=== PATIENT | male | born 1955 | race Caucasian/White ===

== ENCOUNTER 2020-07-14 11:11 | Outpatient (REF) | payer OTHER, SELFPAY | END 2020-07-14 11:12 | disposition home or self-care (01) | LOC: HO.LAB 11:11 | PROVIDERS: PCP Internal Medicine; Visit Provider Internal Medicine | DX: Z20.828 Contact with and (suspected) exposure to other viral communicable diseases (principal) | CPT/HCPCS: C9803; U0003 ==

== ENCOUNTER 2020-08-02 12:21 | Outpatient (REF) | payer OTHER, SELFPAY | END 2020-08-02 12:22 | disposition home or self-care (01) | LOC: HO.LAB 12:21 | PROVIDERS: Visit Provider Internal Medicine | DX: Z20.828 Contact with and (suspected) exposure to other viral communicable diseases (principal) | CPT/HCPCS: C9803; U0003 ==

== ENCOUNTER 2021-04-24 09:32 | Outpatient (REF) | payer OTHER, SELFPAY ==
[2021-04-24 11:33] LABS: MANUAL DIFF FLAG NO
[2021-04-24 11:42] LABS: Basophils Percent Auto 0.9 % (0-2); Eosinophils Absolute Auto 0.4 X10*3/uL (0.0-0.4); Eosinophils Percent Auto 9.8 % (0-4); Hematocrit 41.1 % (42-52); Hemoglobin 13.6 g/dl (14.0-18.0); Imm Gran Abs Auto 0.01 X10*3/uL (0.00-0.03); Imm Gran Pct Auto 0.2 % (0.0-0.4); Lymphocytes Absolute Auto 1.8 X10*3/uL (1.2-4.9); Lymphocytes Percent Auto 39.7 % (20-40); Mean Corpuscular HGB Conc 33.1 g/dl (31.0-36.0); Mean Corpuscular Hemoglobin 29.4 pg (27.0-33.0); Mean Platelet Volume 9.4 fL (9.4-12.4); Monocytes Absolute Auto 0.5 X10*3/uL (0.1-1.2); Monocytes Percent Auto 10.7 % (2-11); Neutrophils Absolute Auto 1.7 X10*3/uL (2.0-8.3); Neutrophils Percent Auto 38.7 % (45-73); Platelet Count 216 X10*3/uL (160-400); Red Blood Count 4.62 X10*6/uL (4.60-5.80); Red Cell Distribution Width 12.8 % (11.0-16.0); White Blood Count 4.5 X10*3/uL (4.8-10.8)
[2021-04-24 11:53] LABS: Alanine Aminotransferase 20 U/L (0-40); Albumin Level 4.3 g/dL (3.5-5.0); Alkaline Phosphatase 71 U/L (39-117); Anion Gap 12 (12-20); Aspartate Amino Transferase 33 U/L (5-37); Bilirubin Total 0.6 mg/dL (0.0-1.0); Blood Urea Nitrogen 15 mg/dL (9-16); Calcium 9.6 mg/dL (8.4-10.2); Carbon Dioxide 27 mmol/L (22-29); Chloride 106 mmol/L (96-108); Cholesterol 145 mg/dL; Estimated Glomerular Filt Rate > 60; Glucose Fasting 102 mg/dL (60-99); HDL Cholesterol 36 mg/dL; LDL Cholesterol Calculated 94 mg/dl; Potassium 4.6 mmol/L (3.3-5.1); Sodium 140 mmol/L (135-145); Total Protein 7.2 g/dL (6.5-8.0); Triglycerides 75 mg/dL
[2021-04-24 12:13] LABS: Ferritin 77 ng/mL (20-250); Vitamin D 25-OH Total 30.4 ng/mL (>30)
[2021-04-24 12:15] LABS: Prothrombin Time 11.1 SEC (9.9-13.0)
[2021-04-24 12:29] LABS: Reflex LDLD? No
== END 2021-04-24 09:33 | disposition home or self-care (01) ==
LOC: HO.LAB 09:32
PROVIDERS: PCP Internal Medicine; Visit Provider Internal Medicine Gastroenterology
DX: K57.81 Diverticulitis of intestine, part unspecified, with perforation and abscess with bleeding (principal); E66.9 Obesity, unspecified; Z68.37 Body mass index [BMI] 37.0-37.9, adult; Z71.3 Dietary counseling and surveillance
CPT/HCPCS: 36415; 80053; 80061; 82306; 82728; 85025; 85610; 99212

== ENCOUNTER 2021-11-29 12:32 | Outpatient (REF) | payer MEDICARE, MEDICAID, SELFPAY ==
[2021-11-29 12:53] LABS: COVID-19 Test Positive (Negative); IDNOW Serial# 08D9AD1C
== END 2021-11-29 12:33 | disposition home or self-care (01) ==
LOC: HO.LAB 12:32
PROVIDERS: Visit Provider Internal Medicine
DX: Z20.822 Contact with and (suspected) exposure to COVID-19 (principal)
CPT/HCPCS: 87635; C9803

== ENCOUNTER 2025-01-06 22:54 | Inpatient (IN) | payer MEDICARE, OTHER, SELFPAY ==
--- NOTE | ~2025-01-06 | XR_ITS ---
CLINICAL HISTORY: ET tube 1 view chest Comparison: CR - XR CHEST 1V - 01/08/25 04:06 EDT Findings: Cardiac and mediastinal contours are stable. There is interstitial prominence and patchy ground-glass density, increased. Small effusions are not excluded. No pneumothorax. No acute osseous finding. The endotracheal tube is approximately 3.5 cm above the remedios. The right IJ line tip is well-positioned. Impression: Well-positioned tubes and lines. Increasing patchy airspace opacity. Correlation for pneumonia. This document has been electronically signed by: Abel Mackey MD on 01/09/2025 14:05:07
--- NOTE | ~2025-01-06 | XR_ITS ---
EXAMINATION: XR CHEST 1 VIEW HISTORY: Status post ET tube placement COMPARISON: Comparison is made with the prior examination dated 02/27/2017. FINDINGS: A single AP portable view of the chest performed at 2:17 PM is submitted. An endotracheal tube is in place with the tip approximately 4.0 cm above the remedios. There are small bilateral pleural effusions. Underlying atelectasis or pneumonia at either lung base is not excluded. There is no pneumothorax. The heart is enlarged. There is degenerative disc disease of the spine. XR/XR chest 1V IMPRESSION: 1. ET tube tip 4.0 cm above the remedios. 2. Small bilateral pleural effusions. Underlying atelectasis or pneumonia at either lung base is not excluded. Electronically signed by: Raymundo Clayton MD 01/07/2025 02:33 PM EDT
--- NOTE | ~2025-01-06 | XR_ITS ---
CLINICAL HISTORY: Distention, R O obstruction Single view of the abdomen. COMPARISON: CT abdomen and pelvis dated 01/10/25 at 12:39 EDT FINDINGS: Suture material present overlying the stomach in the left upper quadrant. Normal bowel distention. No abnormal calcifications. No pneumoperitoneum identified. Mild stool burden. No fracture identified. Mild spondylosis. IMPRESSION: 1. Nonspecific nonobstructive bowel gas pattern. This document has been electronically signed by: Carlos Dawkins MD on 01/12/2025 18:10:38
--- NOTE | ~2025-01-06 | XR_ITS ---
CLINICAL HISTORY: central line placement 1 view chest x-ray Comparison: CR/WA/SR - XR CHEST 1V - 01/07/25 14:16 EDT Findings: Small bilateral pleural effusions and bibasilar opacities are present, similar to prior exam. There is no pneumothorax. Right IJ line tip overlies the cavoatrial junction. Endotracheal tube is unchanged in position. The heart is enlarged in size. No new osseous abnormality is identified. IMPRESSION: 1. Right IJ line tip overlies the cavoatrial junction. 2. Cardiomegaly with small bilateral pleural effusions and bibasilar opacities, similar to prior exam. This document has been electronically signed by: Ivette Crane on 01/08/2025 05:07:04
--- NOTE | ~2025-01-06 | CT_ITS ---
CLINICAL HISTORY: recurrent GI bleed CT abdomen and pelvis withand without contrast Comparison: CT/KS/SR - CT GI BLEED ABD PEL WO/W IVCON - 01/07/25 02:31 EDT Findings: Trace left and small right pleural effusions. Moderate right and mild left bibasilar airspace opacity. Cardiomegaly. Gallbladder is within normal limits. Spleen is absent. Distal pancreatectomy has been performed. Abdominal solid organs are otherwise within normal limits. No bowel obstruction, pneumoperitoneum, or pneumatosis. No extravasation of contrast within the bowel lumen to indicate active hemorrhage. Prostate is enlarged. Normal appendix. Fuentes catheter. Right common femoral arterial line. No acute fracture. IMPRESSION: 1. No evidence of active gastrointestinal hemorrhage. 2. Bibasilar pneumonia with parapneumonic effusions. 3. Right common femoral arterial line is present. 4. Postsurgical sequelae. 5. Prostate enlargement. 6. Right common femoral arterial line. This document has been electronically signed by: Froy Whatley MD on 01/10/2025 14:15:50
--- NOTE | ~2025-01-06 | CT_ITS ---
CLINICAL HISTORY: large volume melena, syncope, pain CT abdomen and pelvis with and without contrast Comparison: None Findings: The lung bases are clear. There is enlargement of the pancreatic tail with adjacent fat stranding or inflammatory change. Soft tissue planes between the stomach and pancreatic tail are effaced. Multiple surgical clips are in the pancreatic tail region. Prior splenectomy noted. Small circumscribed hepatic hypodensities are statistically most likely to represent cysts. Gallbladder is unremarkable. Adrenal glands are within normal limits. The kidneys are non hydronephrotic and enhance symmetrically. Questionable gastric wall thickening noted near the fundus of the stomach adjacent to the pancreatic tail. Long segment circumferential wall thickening of the proximal transverse colon is present. Prostate gland is enlarged. Mild urinary bladder wall thickening is present. The bones are intact. IMPRESSION: 1. No active extravasation of contrast identified. 2. Extensive fat stranding or inflammatory change surrounding the tail of the pancreas with effacement of fat planes between adjacent stomach. Possible gastric wall thickening. Surgical clips are noted in the distal pancreas and there has been prior splenectomy. Differential considerations include inflammatory changes such as pancreatitis with involvement of adjacent gastric fundus, neoplasm or postsurgical change. Please correlate clinically. 3. Long segment circumferential wall thickening of the proximal transverse colon, possible neoplasm or inflammatory change. 4. Enlarged prostate gland with mild urinary bladder wall thickening, possible cystitis. This document has been electronically signed by: Larry Malcolm MD, PHD on 01/07/2025 05:19:46
--- NOTE | ~2025-01-06 | IR_ITS ---
History: Patient with life-threatening acute upper GI bleed. Presents for embolization. Procedures performed: 1. Ultrasound-guided catheterization of the right common femoral artery. 2. Catheterization of the celiac artery with selective arteriography. 3. Catheterization of the left gastric artery with selective arteriography and embolization. 4. Catheterization of the gastroduodenal artery with selective arteriography. 5. Catheterization of the right epiploic artery with selective arteriography and embolization. 6. Catheterization of the superior mesenteric artery with selective arteriography. Physician: Wai Martins MD FSIR Anesthesia: Sedation provided by ICU staff; 9 cc of 1% lidocaine utilized for local anesthesia at the right groin Specimen: None Drain: None Estimated blood loss: Minimal Complications: None Procedure in detail: Informed and written consent was obtained at from the family and placed in the chart. The patient was positioned supine on the angiography table sterile preparation of both groins. Ultrasound of the right groin showed a patent right common femoral artery. Under ultrasound, 1% lidocaine was injected subcutaneously and extended to the artery. A small incision was made in the skin with a #11 blade. Through the incision and under ultrasound guidance with permanent recordings and direct visualization of needle entry into the artery, the right common femoral artery was catheterized in a retrograde fashion. A 5 Mauritian sheath was placed. A Sos 2 catheter was used to catheterize the celiac artery with selective arteriography performed demonstrating vasoconstriction of the arteries from acute blood loss. There appeared to be hemorrhage emanating from the left gastric artery. This artery was catheterized with Sos 2 catheter and Glidewire and we exchanged for a 4 Mauritian hockey-stick catheter, which we used to catheterize the artery more distally. Selective arteriography showed that we had advanced the catheter as distally as possible. Coaxially, we inserted a Progreat microcatheter and embolized the artery with a Gelfoam slurry and small 3 and 4 mm coils with follow-up imaging showing stasis of blood flow. Next, we catheterized the gastroduodenal artery. This showed that no active hemorrhage from the gastroduodenal artery itself. We did, however, note that the right gastroepiploic artery distally ascended towards the area in the stomach where there is a clip that is consistent with the suspected area of hemorrhage. We catheterized distally with the Progreat microcatheter and similarly embolized the artery with 3 and 4 mm coils with follow-up imaging showing stasis of blood flow distal to our embolization site. No further hemorrhage within the celiac territory was appreciated. We exchanged for the Sos 2 catheter and used it to catheterize the superior mesenteric artery with selective arteriography showing no evidence of hemorrhage emanating from any of the branches of the superior mesenteric artery in the upper abdomen. The patient demonstrated improvement in his hemodynamics and we elected to terminate the case. The sheath was left in as an arterial line and secured to the patient with a single suture. It was connected to the pressure monitoring manifold. The patient tolerated the procedure well. Summary: Hemorrhage in the stomach treated with embolization of the left gastric artery and distally the right gastroepiploic artery. Electronically signed by: Saad Martins MD 01/11/2025 01:47 PM EDT
[2025-01-06 23:00] VITALS: BP 106/57; PULSE 106; RESP 16; TEMP 36.6; O2SAT 99
--- NOTE | 2025-01-06 23:02 | ECG_ITS ---
Test Reason : FALL Blood Pressure : */* mmHG Vent. Rate : 99 BPM Atrial Rate : 99 BPM P-R Int : 148 ms QRS Dur : 94 ms QT Int : 336 ms P-R-T Axes : 69 -1 52 degrees QTcB Int : 431 ms Normal sinus rhythm Nonspecific T wave abnormality Abnormal ECG When compared with ECG of 18-Apr-2015 09:06, Vent. rate has increased by 33 bpm Nonspecific T wave abnormality now evident in Lateral leads Referred By: Generic ED Physician Electronically Signed By: BÁRBARA LINDQUIST MD
[2025-01-06 23:05] VITALS: BP 106/57; PULSE 106; TEMP 36.6; O2SAT 99; BMI 34.6
[2025-01-06 23:40] LABS: MANUAL DIFF FLAG NO
[2025-01-06 23:43] LABS: Basophils Absolute Auto 0.1 X10*3/uL (0.0-0.2); Basophils Percent Auto 0.6 % (0-2); Eosinophils Absolute Auto 0.3 X10*3/uL (0.0-0.4); Eosinophils Percent Auto 3.2 % (0-4); Hematocrit 23.5 % (42.0-52.0); Hemoglobin 8.1 g/dl (14.0-18.0); Imm Gran Abs Auto 0.04 X10*3/uL (0.00-0.03); Imm Gran Pct Auto 0.4 % (0.0-0.4); Lymphocytes Absolute Auto 4.1 X10*3/uL (1.2-4.9); Lymphocytes Percent Auto 38.1 % (20-40); Mean Corpuscular HGB Conc 34.5 g/dl (31.0-36.0); Mean Corpuscular Hemoglobin 30.9 pg (27.0-33.0); Mean Corpuscular Volume 89.7 fL (80.0-98.0); Mean Platelet Volume 8.8 fL (9.4-12.4); Monocytes Percent Auto 9.4 % (2-11); NRBC Pct Auto 0.2 /100WBC (0.0-0.2); Neutrophils Absolute Auto 5.2 x10*3/uL (2.0-8.3); Neutrophils Percent Auto 48.3 % (45-73); Platelet Count 208 X10*3/uL (160-400); Red Blood Count 2.62 X10*6/uL (4.60-5.80); Red Cell Distribution Width 14.6 % (11.0-16.0); White Blood Count 10.7 X10*3/uL (4.8-10.8)
[2025-01-07] VITALS (38 sets, daily range): BP systolic 76–147; BP diastolic 36–78; PULSE 78–113; RESP 16–25; TEMP 30–38; O2SAT 96–100
[2025-01-07 00:04] LABS: Alanine Aminotransferase 7 U/L (0-40); Albumin Level 3.1 g/dL (3.5-5.0); Alkaline Phosphatase 47 U/L (39-117); Anion Gap 11 (12-20); Aspartate Amino Transferase 29 U/L (5-37); Bilirubin Total 0.3 mg/dL (0.0-1.0); Blood Urea Nitrogen 63 mg/dL (9-16); Calcium 8.2 mg/dL (8.4-10.2); Carbon Dioxide 20 mmol/L (22-29); Chloride 115 mmol/L (96-108); Creatinine Clr Calc Pharmacy 97.3; Estimated Glomerular Filt Rate > 60; Glucose Random 130 mg/dL (60-115); Lipase 29 U/L (8-78); Potassium 3.9 mmol/L (3.3-5.1); Sodium 142 mmol/L (135-145); Total Protein 5.3 g/dL (6.5-8.0)
--- NOTE | 2025-01-07 01:41 | ED.GENADULT ---
HPI - General Adult General Chief complaint: Abdominal Pain Stated complaint: Abd pain, dizzy,fall. 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 Patient states he developed diffuse mid to lower abdominal discomfort, unable to describe the nature of his symptoms. When the pain presents it is severe, he states he felt as if he had a ?ball? in his abdomen. Associated nausea, diarrhea, dizziness, and near syncopal symptoms. Patient states he felt weak and collapsed to the floor. There was no head strike no loss of consciousness. Patient has had transient symptoms and multiple episodes of weakness and dizziness in the setting of active abdominal discomfort. Denies abdominal distention, inability to pass flatus or fever. Denies dysuria, hematuria or history of kidney stones. Patient denies recent travel, recent hospitalization or use of antibiotics. Related Data Home Medications ?Medication ?Instructions ?Recorded ?Confirmed aspirin 81 mg tablet,delayed 81 mg PO DAILY 04/24/21 release Allergies Allergy/AdvReac Type Severity Reaction Status Date / Time No Known Allergies Allergy Verified 01/06/25 23:09 Review of Systems Review of Systems: Yes all other systems are reviewed and are negative Constitutional: Constitutional: Denies fatigue, Denies fever(s) and Denies headache(s) ENT: Reports dizziness and Denies headache(s) Cardiovascular: Cardiovascular: Denies chest pain and Denies dyspnea Respiratory: Respiratory: Denies cough and Denies dyspnea Gastrointestinal: Gastrointestinal: Reports abdominal pain, Denies bloating, Denies constipation, Reports diarrhea, Reports nausea and Denies vomiting Genitourinary: Genitourinary: Denies hematuria, Denies dysuria and Denies flank pain Neurologic: Reports dizziness and Denies headache(s) Endocrine: Endocrine: Denies fatigue PMF Past Medical History Attestation statement: The following information was validated with the patient. Medical History (Updated 01/07/25 @ 02:50 by GIA Cohen) Erectile dysfunction Chronic hepatitis C virus genotype 1a infection Social History Social History Advance Directives: No Advance Directives Information Provided: Yes Do you have a plan to hurt others: No Plan Physical Exam ED Vital Signs: Vital Signs - 24 hr 01/06/25 23:00 01/06/25 23:05 01/07/25 02:06 Temperature 97.9 F 97.9 F Pulse Rate 106 H 106 H 84 Respiratory Rate 16 16 Blood Pressure 106/57 L 106/57 L 84/42 L Pulse Oximetry 99 99 Oxygen Delivery Method Room Air Room Air 01/07/25 03:38 01/07/25 03:54 Temperature 97.7 F 98.2 F Pulse Rate 93 89 Respiratory Rate 17 20 Blood Pressure 127/65 128/62 Pulse Oximetry Oxygen Delivery Method BMI result Body Mass Index 34.6 Const Other: Alert overall well-appearing Orientation/consciousness: patient oriented x3 Resp Effort & Inspection: normal respiratory effort Cardio Other: Normal peripheral perfusion GI Other: Abdomen is soft, obese, nondistended, nontender to palpation no palpable masses central abdomen, no guarding Skin Other: Warm dry no rash Neuro General: patient oriented x3, gait normal, no focal motor deficits and CN's II-XI intact bilaterally Psych Other: Cooperative Course Reevaluation(s) Reevaluation #1: Patient just passed out while having a bowel movement, it is large volume melena. Obtaining a repeat H&H, coagulation studies, type and screen in ordering 2 units of blood. The patient has been consented for blood transfusion, his daughter signed for him. The patient was just about to have the CT scan of the abdomen, I am changing it to GI bleed protocol.... Ordering ceftriaxone and Protonix The daughter is at bedside, her father has not been forthcoming about his symptoms. Apparently he has been having dark stools for unclear duration of time, his symptoms acutely worsened over the past 2 days. He started having syncopal episodes at home yesterday. Again, the patient is not on a blood thinner. Time: 02:07 Reevaluation #2: per Dr. Rodrigues keep the patient NPO, he will have endoscopy later today, he is in agreement with interventions we have provided thus far including blood products ceftriaxone and Protonix Time: 03:07 Medications Administered Generic Name Dose Route Start Last Admin Trade Name Freq PRN Reason Stop Dose Admin Albumin Human 100 mls @ 100 mls/hr 01/07/25 02:45 01/07/25 02:52 Kedbumin 25 % IV 01/07/25 09:44 100 mls/hr Q6H ZHANG Administration Discontinued Medications Generic Name Dose Route Start Last Admin Trade Name Ashanti PRN Reason Stop Dose Admin Ceftriaxone Sodium 2 gm 01/07/25 02:55 01/07/25 03:18 Ceftriaxone Sodium 2 Gm Vial IVPUSH 01/07/25 02:56 2 gm ONCE ONE Administration Diatrizoate Meglum/Diatrizoate Sod 30 ml 01/07/25 02:54 01/07/25 03:01 Diatrizoate Meglumine, Sodium 30 Ml Solution PO 01/07/25 02:55 30 ml ONCE ONE Administration Sodium Chloride 1,000 mls @ 999 mls/hr 01/07/25 00:15 01/07/25 01:47 Ns IV 01/07/25 01:15 999 mls/hr .Q1H1M ZHANG Administration Iohexol 70 ml 01/07/25 03:02 01/07/25 03:02 Iohexol 350 Mg/Ml 100 Ml Infus..Btl IV 01/07/25 03:03 70 ml ONCE ONE Administration Pantoprazole Sodium 80 mg 01/07/25 02:55 01/07/25 03:18 Pantoprazole Sodium 40 Mg/10 Ml Vial IVPUSH 01/07/25 02:56 80 mg ONCE ONE Administration Procedures Procedure Narrative Procedure Narrative: Ultrasound-guided IVs 18 gauge 1-3/4 inch IVs placed in bilateral upper extremities, both with the adequate blood return, both flushes well both secured with Tegaderm Medical Decision Making Medical Decision Making MDM Narrative: 69-year-old male with a history of morbid obesity, Betancourt, hepatitis-C , 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 Patient states he developed diffuse mid to lower abdominal discomfort, unable to describe the nature of his symptoms. When the pain presents it is severe, he states he felt as if he had a ?ball? in his abdomen. Associated nausea, diarrhea, dizziness, and near syncopal symptoms. Patient states he felt weak and collapsed to the floor. There was no head strike no loss of consciousness. Patient has had transient symptoms and multiple episodes of weakness and dizziness in the setting of active abdominal discomfort. Denies abdominal distention, inability to pass flatus or fever. Denies dysuria, hematuria or history of kidney stones. Patient denies recent travel, recent hospitalization or use of antibiotics. Problem: Age, Betancourt, obesity, prior hep C, splenectomy History: Per patient and daughter I have considered the following differential diagnoses: Metastatic disease, bowel obstruction, diverticulitis, C diff, viral gastroenteritis, traveler's diarrhea Plan: Patient is not the best historian, he is describing obstructive symptoms at times, but it is not a concise picture of SBO. We will obtain a CT scan with p.o. contrast. He has no symptoms at this time we will just give IV fluid for hydration. Given prior neuroendocrine tumor, perhaps his disease process has spread. Screening labs are in process. Given concurrent diarrhea, considering potential diverticulitis, however he has no focal left lower quadrant pain. He also has no risk factors for C diff or traveler's diarrhea. I have independently reviewed the following tests: Labs: 1st H&H 8.1 and 23.5, the 2nd 7.9 and 23.4, no leukocytosis, OBS FX positive, no electrolyte abnormality, albumin low at 3.1 CT abdomen and pelvis GI bleed protocol EKG: Normal sinus rhythm, rate of 99, nonspecific T-wave abnormalities lateral leads, QTC 431 Lab Data 01/07/25 02:07 01/06/25 23:31 Labs: Lab Results 01/06/25 01/07/25 01/07/25 Range/Units 23:31 01:57 02:07 WBC 10.7 (4.8-10.8) X10*3/uL RBC 2.62 L (4.60-5.80) X10*6/uL Hgb 8.1 L 7.9 L (14.0-18.0) g/dl Hct 23.5 L 23.4 L (42.0-52.0) % MCV 89.7 (80.0-98.0) fL MCH 30.9 (27.0-33.0) pg MCHC 34.5 (31.0-36.0) g/dl RDW 14.6 (11.0-16.0) % Plt Count 208 (160-400) X10*3/uL MPV 8.8 L (9.4-12.4) fL Immature Gran % (Auto) 0.4 (0.0-0.4) % Neut % (Auto) 48.3 (45-73) % Lymph % (Auto) 38.1 (20-40) % [facility] % (Auto) 9.4 (2-11) % Eos % (Auto) 3.2 (0-4) % Baso % (Auto) 0.6 (0-2) % Lymph # (Auto) 4.1 (1.2-4.9) X10*3/uL [facility] # (Auto) 1.0 (0.1-1.2) X10*3/uL Eos # (Auto) 0.3 (0.0-0.4) X10*3/uL Baso # (Auto) 0.1 (0.0-0.2) X10*3/uL Abs Immat Gran (auto) 0.04 H (0.00-0.03) X10*3/uL Absolute Neuts (auto) 5.2 (2.0-8.3) x10*3/uL Absolute Nucleated RBC 0.020 H (0.0-0.012) X10*3/uL Nucleated RBC % (auto) 0.2 (0.0-0.2) /100WBC PT 12.2 (10.9-12.4) SEC INR 1.1 (0.9-1.1) Sodium 142 (135-145) mmol/L Potassium 3.9 (3.3-5.1) mmol/L Chloride 115 H (96-108) mmol/L Carbon Dioxide 20 L (22-29) mmol/L Anion Gap 11 L (12-20) BUN 63 H (9-16) mg/dL Creatinine 0.94 (0.5-1.4) mg/dL Estim Creat Clear Calc 97.3 Estimated GFR > 60 POC Glucose 138 H (60-115) mg/dL Random Glucose 130 H (60-115) mg/dL Lactic Acid (0.5-2.0) mmol/L Calcium 8.2 L D (8.4-10.2) mg/dL Total Bilirubin 0.3 (0.0-1.0) mg/dL AST 29 (5-37) U/L ALT 7 (0-40) U/L Alkaline Phosphatase 47 (39-117) U/L Troponin I High Sens 3.1 (<3.5-35.0) ng/L Total Protein 5.3 L (6.5-8.0) g/dL Albumin 3.1 L (3.5-5.0) g/dL Lipase 29 (8-78) U/L Stool Occult Blood (NEGATIVE) Blood Type O Positive Antibody Screen NEGATIVE Crossmatch See Detail 01/07/25 01/07/25 Range/Units 02:13 03:06 WBC (4.8-10.8) X10*3/uL RBC (4.60-5.80) X10*6/uL Hgb (14.0-18.0) g/dl Hct (42.0-52.0) % MCV (80.0-98.0) fL MCH (27.0-33.0) pg MCHC (31.0-36.0) g/dl RDW (11.0-16.0) % Plt Count (160-400) X10*3/uL MPV (9.4-12.4) fL Immature Gran % (Auto) (0.0-0.4) % Neut % (Auto) (45-73) % Lymph % (Auto) (20-40) % [facility] % (Auto) (2-11) % Eos % (Auto) (0-4) % Baso % (Auto) (0-2) % Lymph # (Auto) (1.2-4.9) X10*3/uL [facility] [place] # (Auto) (0.1-1.2) X10*3/uL Eos # (Auto) (0.0-0.4) X10*3/uL Baso # (Auto) (0.0-0.2) X10*3/uL Abs Immat Gran (auto) (0.00-0.03) X10*3/uL Absolute Neuts (auto) (2.0-8.3) x10*3/uL Absolute Nucleated RBC (0.0-0.012) X10*3/uL Nucleated RBC % (auto) (0.0-0.2) /100WBC PT (10.9-12.4) SEC INR (0.9-1.1) Sodium (135-145) mmol/L Potassium (3.3-5.1) mmol/L Chloride (96-108) mmol/L Carbon Dioxide (22-29) mmol/L Anion Gap (12-20) BUN (9-16) mg/dL Creatinine (0.5-1.4) mg/dL Estim Creat Clear Calc Estimated GFR POC Glucose (60-115) mg/dL Random Glucose (60-115) mg/dL Lactic Acid 1.8 (0.5-2.0) mmol/L Calcium (8.4-10.2) mg/dL Total Bilirubin (0.0-1.0) mg/dL AST (5-37) U/L ALT (0-40) U/L Alkaline Phosphatase (39-117) U/L Troponin I High Sens (<3.5-35.0) ng/L Total Protein (6.5-8.0) g/dL Albumin (3.5-5.0) g/dL Lipase (8-78) U/L Stool Occult Blood POSITIVE (NEGATIVE) Blood Type Antibody Screen Crossmatch Critical Care Time Critical Care Time Critical Care Time: Yes Total Critical Care Time: 30 Attestation: I Alicja Fuentes PA-C have performed 30 minutes of critical care time not including lines and procedures Discharge Plan Discharge Clinical Impression: Acute upper GI bleed, Anemia Patient Disposition: Admitted As Inpatient Print Language: Monegasque
[2025-01-07] MEDS: 0.9 % Sodium Chloride 1,000 ML 999 ML IV (01:47)
[2025-01-07 02:14] LABS: Hematocrit 23.4 % (42.0-52.0); Hemoglobin 7.9 g/dl (14.0-18.0)
[2025-01-07 02:18] LABS: OBS Int Ctl Valid YES; OBS1 POSITIVE (NEGATIVE)
[2025-01-07 02:19] LABS: INTERNATIONAL NORM RATIO 1.1 (0.9-1.1); Prothrombin Time 12.2 SEC (10.9-12.4)
[2025-01-07 02:24] LABS: Glucose, Whole Blood 138 mg/dL (60-115)
[2025-01-07 02:29] LABS: Troponin-I High Sensitivity 3.1 ng/L (<3.5-35.0)
[2025-01-07] MEDS: Albumin Human 25 % 100 ML IV ×2 (02:52→08:56)
[2025-01-07] MEDS: Diatrizoate Meglumine, Sodium 30 ML SOLUTION PO (03:01)
[2025-01-07] MEDS: iohexoL 350 MG/ML 100 ML INFUS..BTL 70 ML IV (03:02)
[2025-01-07] MEDS: Pantoprazole Sodium 40 MG/10 ML VIAL 80 MG IVPUSH (03:18)
[2025-01-07] MEDS: cefTRIAXone sodium 2 GM VIAL IVPUSH (03:18)
[2025-01-07 03:31] LABS: Lactic Acid 1.8 mmol/L (0.5-2.0)
--- NOTE | 2025-01-07 03:46 | PC.NURSE ---
late entry: daughter at bedside requesting assistance. pt on bedside commode diaphoretic and non responsive.provder called to bedside. PT moved to stretcher, and black diarrhea noted in commode BP soft. New labs and orders placed and administered. second ultrasound guided line placed in right arm. PT taken to ct for imaging. awaiting blood to be ready.
--- NOTE | 2025-01-07 05:41 | P.HPHOSP_ITS ---
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 Patient states he has been having painless black stools that started 2 weeks prior to presentation. He has been having multiple episodes of black stools every day. This was without any abdominal discomfort until on the day of presentation when he had sudden onset of pain which is in the center of the abdomen, intermittent, nonradiating and without any relieving factors. Patient states he ate something at 18:00 and he thought the abdominal pain is due to it as it started at 21:00. Patient tried to get up to go to the bathroom and he felt dizzy/lightheaded and nearly passed out. He did not lose consciousness. Did not hit his head. Patient has had easy fatigability and weakness over the last few days. No fever, chills, chest pain, palpitations, shortness of breath, changes in urinary habits. Patient passed out in the ER while having a bowel movement as per ER provider. Black tarry stools noted in the ER. In the emergency department, hemoglobin found to be 7.9 and stool occult blood positive. 2 unit PRBC ordered in the ER. Review of Systems 2 Constitutional: Constitutional: Reports fatigue, Reports malaise and Reports weakness Cardiovascular: Cardiovascular: Reports no additional cardiovascular complaints Respiratory: Respiratory: Reports no additional respiratory complaints Gastrointestinal: Gastrointestinal: Reports abdominal pain and Reports melena Genitourinary: Genitourinary: Reports no additional male genitourinary complaints Neurologic: Reports weakness Endocrine: Endocrine: Reports fatigue [facility] Medical History Erectile dysfunction Chronic hepatitis C virus genotype 1a infection Pertinent family history: No family history of early CAD Social History Advance Directives: No Advance Directives Information Provided: Yes Do you have a plan to hurt others: No Plan Meds Allergies Allergy/AdvReac Type Severity Reaction Status Date / Time No Known Allergies Allergy Verified 01/06/25 23:09 Active Medications: Current Medications Albumin Human (Kedbumin 25 %) 100 mls @ 100 mls/hr IV Q6H ZHANG Stop: 01/07/25 09:44 Last Admin: 01/07/25 02:52 Dose: 100 mls/hr Home Medications ?Medication ?Instructions ?Recorded ?Confirmed ?Last Taken ?Type aspirin 81 mg tablet,delayed 81 mg PO DAILY 04/24/21 Unknown History release Physical Exam 2 Vital Signs and Narrative: Vital Signs: Last Vital Signs Temp 98.2 F 01/07/25 05:38 Pulse 97 01/07/25 05:38 Resp 21 H 01/07/25 05:38 BP 140/71 H 01/07/25 05:38 Pulse Ox 98 01/07/25 05:38 O2 Del Method Room Air 01/07/25 05:38 BMI result Body Mass Index 34.6 Middle-aged male lying in bed in no distress Neck supple, no JVD Regular rate and rhythm, S1-S2 heard Regular breath sounds bilaterally, no wheezing or crackles appreciated Abdomen soft nontender, no guarding, no rigidity Patient is awake, alert and oriented to self, place, time and person ; no focal motor deficit Psych: Normal mood No pedal edema Results Labs 01/07/25 02:07 01/06/25 23:31 Labs: Laboratory Results - last 24 hr 01/06/25 01/07/25 01/07/25 23:31 01:57 02:07 MCV 89.7 MCH 30.9 MCHC 34.5 RDW 14.6 Plt Count 208 MPV 8.8 L Immature Gran % (Auto) 0.4 Neut % (Auto) 48.3 Lymph % (Auto) 38.1 [place] % (Auto) 9.4 Eos % (Auto) 3.2 Baso % (Auto) 0.6 Lymph # (Auto) 4.1 [place] # (Auto) 1.0 Eos # (Auto) 0.3 Baso # (Auto) 0.1 Abs Immat Gran (auto) 0.04 H Absolute Neuts (auto) 5.2 Absolute Nucleated RBC 0.020 H Nucleated RBC % (auto) 0.2 PT 12.2 INR 1.1 Anion Gap 11 L Estim Creat Clear Calc 97.3 Estimated GFR > 60 POC Glucose 138 H Random Glucose 130 H Lactic Acid Calcium 8.2 L D Total Bilirubin 0.3 AST 29 ALT 7 Alkaline Phosphatase 47 Total Protein 5.3 L Albumin 3.1 L Lipase 29 Stool Occult Blood Blood Type O Positive Antibody Screen NEGATIVE Crossmatch See Detail 01/07/25 01/07/25 02:13 03:06 MCV MCH MCHC RDW Plt Count MPV Immature Gran % (Auto) Neut % (Auto) Lymph % (Auto) [place] % (Auto) Eos % (Auto) Baso % (Auto) Lymph # (Auto) [place] # (Auto) Eos # (Auto) Baso # (Auto) Abs Immat Gran (auto) Absolute Neuts (auto) Absolute Nucleated RBC Nucleated RBC % (auto) PT INR Anion Gap Estim Creat Clear Calc Estimated GFR POC Glucose Random Glucose Lactic Acid 1.8 Calcium Total Bilirubin AST ALT Alkaline Phosphatase Total Protein Albumin Lipase Stool Occult Blood POSITIVE Blood Type Antibody Screen Crossmatch Assessment and Plan (1) Acute GI bleeding: Status: Acute (2) Acute blood loss anemia: Status: Acute (3) Syncope: Status: Acute Plan This is a 69-year-old male with pertinent history of 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 #. Acute symptomatic blood loss anemia due to Acute GI bleed: Will admit patient with cardiac monitoring. Initiated IV Protonix. Patient being transfused 2 unit PRBC in the ER. Closely monitor H&H and hemodynamics. Consulted Gastroenterology, appreciate assistance. Will keep patient NPO #. Syncope: Initially had an episode of orthostatic presyncope at home. In the ER, patient had neurally mediated syncope in the setting of defecation. Resuscitated with IV crystalloids. Closely monitor. #. Imaging evidence of wall thickening of transverse colon, possible neoplasm or inflammatory change: Appreciate GI consult #. Hypertension: Hold lisinopril in the setting of GI bleed #. ALEXANDRA: Continue CPAP at bedtime #. Obesity class I: Counseled regarding diet and exercise #. BPH: On Flomax Med rec pending DVT prophylaxis: Mechanical Full code Admit as inpatient and will require two night minimum hospital stay for PRBC transfusion, close hemodynamic monitoring (as above), which is not possible in a lesser acute setting. Gastroenterology consult pending Quality Stroke Does the patient have a stroke diagnosis?: No VTE Prior VTE?: No VTE Risk Level:: Medical - moderate - high VTE Device Contraindication: N/A - Device Ordered VTE Drug Contraindication: Treatment Not Indicated
[2025-01-07] MEDS: Pantoprazole Sodium 40 MG/10 ML VIAL IVPUSH ×2 (06:30→17:55)
[2025-01-07] MEDS: 0.9 % Sodium Chloride Flush 3 ML SYRINGE IVFLUSH ×2 (09:02→23:37)
--- NOTE | 2025-01-07 10:45 | PM.GICN ---
History of Present Illness Data of Consult Service Date: 01/07/25 Requesting physician: Blas Hughes Primary Care Provider: Unknown Physician HPI Reason for consult: ugib 69 y.o M with PMH of obesity, fatty liver, prev GI bleeding who presented to the hospital for abd pain, nausea and lightheadedness and found to have acute anemia. Pt seen in the ER in the presence of his daughter, reports sx started saturday evening when he developed gnawing epigastric pain assoc with nausea and frequent black soft BMs. This progressed over the next day and by the evening he was short of breath, fatigued and lightheaded and even fell in his bathroom. This prompted ER visit he was noted to be tachycardiac with soft pressures. Initial H/H was 8.1/23.5 down from his previously known baseline. Bun:Cr elevated. Had witnessed melena in ER wiht a presyncopal event. So far has received IVFs, 1u PRBC, protonix IV. CT bleed protocol reviewed - favor gastritis/gastric ulcer leading to perigastric changes josh with normal lipase. Pt reports a similar hx last year when he was managed at [facility]. Reports source of bleeding could not be found at that time despite an egd and colonoscopy. Does not smoke, take NSAIDs or drink etOH. No blood thinners on board. Normal platelets and coags. Review of Systems Review of Systems: Yes all other systems are reviewed and are negative [facility] Past Medical History Medical History Erectile dysfunction Chronic hepatitis C virus genotype 1a infection Social History Social History service: Yes Meds Allergies Allergy/AdvReac Type Severity Reaction Status Date / Time No Known Allergies Allergy Verified 01/06/25 23:09 Active Medications: Current Medications Acetaminophen (Acetaminophen 325 Mg Tablet) 650 mg PO Q6H PRN PRN Reason: Pain, Mild 1-3,fever,headache Calcium Carbonate (Calcium Carbonate 750 Mg Tab.Chew) 750 mg PO Q4H PRN PRN Reason: Heartburn Magnesium Hydroxide (Milk Of Magnesia 30 Ml Oral.Susp) 30 ml PO DAILY PRN PRN Reason: Constipation Melatonin (Melatonin 3 Mg Tablet) 6 mg PO BEDTIME PRN PRN Reason: Insomnia Ondansetron HCl (Ondansetron Hcl 4 Mg/2 Ml Vial) 4 mg IVPUSH Q8H PRN PRN Reason: Nausea and Vomiting Pantoprazole Sodium (Pantoprazole Sodium 40 Mg/10 Ml Vial) 40 mg IVPUSH BID@0630,1630 [facility] Last Admin: 01/07/25 06:30 Dose: 40 mg Sodium Chloride (0.9 % Sodium Chloride Flush 3 Ml Syringe) 3 ml IVFLUSH QSHIFT [facility] Last Admin: 01/07/25 09:02 Dose: 3 ml Home Medications ?Medication ?Instructions ?Recorded ?Confirmed ?Last Taken ?Type aspirin 81 mg tablet,delayed 81 mg PO DAILY 04/24/21 Unknown History release Physical Exam Vital Signs: Vital Signs: Last Vital Signs Temp 98.1 F 01/07/25 08:31 Pulse 92 01/07/25 08:31 Resp 16 01/07/25 08:31 BP 131/68 01/07/25 08:31 Pulse Ox 96 01/07/25 08:31 O2 Del Method Room Air 01/07/25 08:31 BMI result Body Mass Index 34.6 Elderly gent Slightly clammy Nonicteric Abdomen soft, nondistended, mild tenderness without guarding in periumbilical region Alert and oriented x3, no focal deficits Results Labs 01/07/25 02:07 01/06/25 23:31 Labs: Short CBC 01/06/25 01/07/25 Range/Units 23:31 02:07 WBC 10.7 (4.8-10.8) X10*3/uL Hgb 8.1 L 7.9 L (14.0-18.0) g/dl Hct 23.5 L 23.4 L (42.0-52.0) % Plt Count 208 (160-400) X10*3/uL BMP 01/06/25 23:31 Sodium 142 Potassium 3.9 Chloride 115 H Carbon Dioxide 20 L BUN 63 H Creatinine 0.94 Calcium 8.2 L D Liver Function 01/06/25 Range/Units 23:31 Total Bilirubin 0.3 (0.0-1.0) mg/dL AST 29 (5-37) U/L ALT 7 (0-40) U/L Alkaline Phosphatase 47 (39-117) U/L Albumin 3.1 L (3.5-5.0) g/dL Assessment and Plan (1) Acute GI bleeding: Status: Acute (2) Syncope: Status: Acute (3) Anemia: Status: Acute (4) Abnormal CT of the abdomen: Status: Acute Plan Ddx include PUD josh gastric given CT findings, AVMs, dieulafoy. Has reported hx of HCV but doubt variceal bleeding as no other evidence of CSPH on labs or imaging. Plan: - Maintain IV access at all times - Check CBC BID and transfuse for Hb < 7 - IV protonix 40 mg BID - Keep NPO for urgent EGD today - Transverse colon wall thickening noted on CT but pt had a recent colo in the last year - will get records to review indication of repeat diagnostic colonoscopy Thank you for allowing me to participate in his care. Please do not hesitate to reach out for questions or concerns. Procedures Date of Service Date of Service: 01/07/25
--- NOTE | 2025-01-07 11:00 | MHC.CM.PN ---
IMM 01/07/25, Pt. lives alone, his PCP is Jimena Buck at the [place] in [facility]. HCP he said is his dtr, completed at [facility], CM to call to get a copy. Pt. does not have home health services, requested referral to [facility] for EGG PASTEURIZER, this will be submitted. For DME, he uses a CPAP machine. Family to provide transport home at [place]. DCP: home with services, CM to follow for DC needs.
--- NOTE | 2025-01-07 11:05 | PC.NURSE ---
Pt off unit at short stay.
[2025-01-07] MEDS: Lactated Ringers 1,000 ML 80 ML IVCONT (11:17)
--- NOTE | 2025-01-07 11:27 | P.CONAN_ITS ---
HPI - Anesthesia Eval Consult details Narrative: 69 yo M presenting for EGD. Acute GI bleed s/p 1 unit of PRBCs. PMFSH Active Problems Active Problems: All Active Problems Abnormal CT of the abdomen (Acute) Syncope (Acute) Acute blood loss anemia (Acute) Acute GI bleeding (Acute) Anemia (Acute) Acute upper GI bleed (Acute) Colon cancer screening (Acute) Glaucoma (Acute) Chronic bronchitis (Acute) Obesity (BMI 35.0-39.9 without comorbidity) (Acute) SCHULTZ (nonalcoholic steatohepatitis) (Acute) Past Medical History Medical History Erectile dysfunction Chronic hepatitis C virus genotype 1a infection Family History Family history of problems with anesthesia: No Surgical History History of Problems with Anesthesia: No Social History Social History Advance Directives: No Advance Directives Information Provided: Yes Do you have a plan to hurt others: No Plan service: Yes Meds Allergies Allergy/AdvReac Type Severity Reaction Status Date / Time No Known Allergies Allergy Verified 01/06/25 23:09 Active Medications: Current Medications Acetaminophen (Acetaminophen 325 Mg Tablet) 650 mg PO Q6H PRN PRN Reason: Pain, Mild 1-3,fever,headache Calcium Carbonate (Calcium Carbonate 750 Mg Tab.Chew) 750 mg PO Q4H PRN PRN Reason: Heartburn Lactated Ringer's (Lr) 1,000 mls @ 80 mls/hr IVCONT .[id number] [facility] Last Admin: 01/07/25 11:17 Dose: 80 mls/hr Magnesium Hydroxide (Milk Of Magnesia 30 Ml Oral.Susp) 30 ml PO DAILY PRN PRN Reason: Constipation Melatonin (Melatonin 3 Mg Tablet) 6 mg PO BEDTIME PRN PRN Reason: Insomnia Ondansetron HCl (Ondansetron Hcl 4 Mg/2 Ml Vial) 4 mg IVPUSH Q8H PRN PRN Reason: Nausea and Vomiting Pantoprazole Sodium (Pantoprazole Sodium 40 Mg/10 Ml Vial) 40 mg IVPUSH BID@0630,1630 [facility] Last Admin: 01/07/25 06:30 Dose: 40 mg Sodium Chloride (0.9 % Sodium Chloride Flush 3 Ml Syringe) 3 ml IVFLUSH QSHIFT [facility] Last Admin: 01/07/25 09:02 Dose: 3 ml Home Medications ?Medication ?Instructions ?Recorded ?Confirmed ?Last Taken ?Type aspirin 81 mg tablet,delayed 81 mg PO DAILY 04/24/21 Unknown History release Exam Exam Date and Time: 01/07/25 1128 Height,Weight and Vital Signs: Height 6 ft Weight 115.666 kg Last Vital Signs Temp 98.1 F 01/07/25 11:10 Pulse 102 H 01/07/25 11:10 Resp 18 01/07/25 11:10 BP 137/78 01/07/25 11:10 Pulse Ox 100 01/07/25 11:10 O2 Del Method Room Air 01/07/25 11:10 Pertinent Lab Results Pertinent Lab Results: Laboratory Tests 01/06/25 01/07/25 01/07/25 23:31 01:57 02:07 WBC 10.7 RBC 2.62 L Hgb 8.1 L 7.9 L Hct 23.5 L 23.4 L MCV 89.7 MCH 30.9 MCHC 34.5 RDW 14.6 Plt Count 208 MPV 8.8 L Immature Gran % (Auto) 0.4 Neut % (Auto) 48.3 Lymph % (Auto) 38.1 [place] % (Auto) 9.4 Eos % (Auto) 3.2 Baso % (Auto) 0.6 Lymph # (Auto) 4.1 [place] # (Auto) 1.0 Eos # (Auto) 0.3 Baso # (Auto) 0.1 Abs Immat Gran (auto) 0.04 H Absolute Neuts (auto) 5.2 Absolute Nucleated RBC 0.020 H Nucleated RBC % (auto) 0.2 PT 12.2 INR 1.1 Sodium 142 Potassium 3.9 Chloride 115 H Carbon Dioxide 20 L Anion Gap 11 L BUN 63 H Creatinine 0.94 Estim Creat Clear Calc 97.3 Estimated GFR > 60 POC Glucose 138 H Random Glucose 130 H Lactic Acid Calcium 8.2 L D Total Bilirubin 0.3 AST 29 ALT 7 Alkaline Phosphatase 47 Troponin I High Sens 3.1 Total Protein 5.3 L Albumin 3.1 L Lipase 29 Stool Occult Blood Blood Type O Positive Antibody Screen NEGATIVE Crossmatch See Detail 01/07/25 01/07/25 02:13 03:06 WBC RBC Hgb Hct MCV MCH MCHC RDW Plt Count MPV Immature Gran % (Auto) Neut % (Auto) Lymph % (Auto) [place] % (Auto) Eos % (Auto) Baso % (Auto) Lymph # (Auto) [place] # (Auto) Eos # (Auto) Baso # (Auto) Abs Immat Gran (auto) Absolute Neuts (auto) Absolute Nucleated RBC Nucleated RBC % (auto) PT INR Sodium Potassium Chloride Carbon Dioxide Anion Gap BUN Creatinine Estim Creat Clear Calc Estimated GFR POC Glucose Random Glucose Lactic Acid 1.8 Calcium Total Bilirubin AST ALT Alkaline Phosphatase Troponin I High Sens Total Protein Albumin Lipase Stool Occult Blood POSITIVE Blood Type Antibody Screen Crossmatch Airway Mallampati Class: III TM Dist: >3cm Neck ROM: Full Loose/Missing/Broken Teeth: No (patient denies any loose or broken teeth) Heart: S1S2 Lungs: CTAB Assessment and Plan Assessment Anesthesia Assessment: Anesthesia Plan Discussed and Chart Reviewed Final Anesthetic Review Family History of Problems with Anesthesia: No History of Problems with Anesthesia: No NPO: Yes ASA Class: III and Emergency Final Preanesthetic Review: No Changes in Pt Med Stat, Meds/Allgs Chart Reviewed, Consent Obtained/Reviewed and Anes Risks/Benef Reviewed Patient Risk: Intermediate Procedure Risk: Low Anesthetic Plan Anesthetic Plan: GA and Agree w/ Assess. and Plan Disposition: Standard PACU
--- NOTE | 2025-01-07 13:23 | P.OP_ITS ---
Operative Note Operative Note Date of Service: 01/07/25 Narrative: Procedure: Esophagogastroduodenoscopy Endoscopist: Kate Ballard MD Indication: UGIB Anesthesia Provider: Micheal Ledezma CRNA Anesthesia Type: GEA Instrument: [id number] and [id number] ?? EGD Procedure:?? The procedure, indications, preparation and potential complications were reviewed with the patient, who indicated understanding and gave written informed consent to proceed. A physical exam was performed. The patient was electively intubated for airway protection the anesthesiologist. The endoscope was introduced through the mouth, and advanced to the second part of duodenum. The mucosa was carefully examined on slow withdrawal of the endoscope. The patient tolerated the procedure well. There were no immediate complications.? ? EGD Findings:? * Esophagus:? Normal mucosa noted in the entire esophagus. Fresh blood was refluxing into the esophagus. * Stomach:? Stomach was filled with fresh and old blood as well as large clots in the fundus and along greater curvature limiting visualization. The clots along greater curvature were displaced with patient repositioning and pulling them out with the scope. However the fundus could not be cleared. Fresh blood was noted to ooze from that area. Scope was changed to 2T for enhanced suctioning without much progress. Ultimately hemospray was applied. 500 cc IV erythromycin was given. After 30 mins, another relook was done however the clots had not moved and were being regurgitated up to mid esophagus. A second round of hemospray was applied to coagulate and achieve temporary hemostasis. Decision was made to terminate the procedure and leave the patient intubated for airway protection. * Duodenum:? Old blood in duodenum which was suctioned. Normal underlying mucosa was noted in the whole of the examined duodenum. No bleeding was noted from the major papilla. ? EGD Impressions:? * Normal esophagus * Active bleeding in gastric fundus (hemospray) * Fresh and old blood and clots in stomach * Normal duodenum ?? Recommendations:?? * Temporary hemostasis with hemospray has been achieved * Will recommend keeping pt intubated for airway protection. Pt accepted in ICU. * Repeat EGD to be done tmrw AM to attempt to localize the bleeder and for definitive hemostasis * Please keep on protonix drip * 1u PRBC was given during EGD. Please recheck CBC and transfuse for Hb < 7. * Keep NPO * Please give Erythromycin 250 mg tomorrow AM. Daughter Lisa was called but could not connect, LVM re update above.
[2025-01-07] MEDS: Norepinephrine Bitartrate/D5W 8 MG/250 ML PLAST..BAG 10.84 MG IVCONT (13:55)
[2025-01-07] MEDS: Lactated Ringers 1,000 ML 999 ML IV ×2 (13:57→17:54)
[2025-01-07] MEDS: propofoL 1,000 MG/100 ML VIAL 20.82 MG IVCONT (14:00)
[2025-01-07 14:30] LABS: MANUAL DIFF FLAG NO
[2025-01-07] MEDS: Chlorhexidine Gluc Oral Rinse 15 ML MOUTHWASH BUCCAL ×2 (14:31→21:38)
[2025-01-07 14:32] LABS: VBG Base Excess -8.2 mmol/L; VBG HCO3 17 mmol/L (22-26); VBG pCO2 35 mmHg; VBG pH 7.28 (7.32-7.43); VBG pO2 33 mmHg
[2025-01-07 14:35] LABS: Basophils Percent Auto 0.2 % (0-2); Eosinophils Absolute Auto 0.1 X10*3/uL (0.0-0.4); Eosinophils Percent Auto 0.7 % (0-4); Hematocrit 24.8 % (42.0-52.0); Hemoglobin 8.3 g/dl (14.0-18.0); Imm Gran Abs Auto 0.14 X10*3/uL (0.00-0.03); Lymphocytes Absolute Auto 2.4 X10*3/uL (1.2-4.9); Lymphocytes Percent Auto 16.8 % (20-40); Mean Corpuscular HGB Conc 33.5 g/dl (31.0-36.0); Mean Corpuscular Hemoglobin 31.3 pg (27.0-33.0); Mean Corpuscular Volume 93.6 fL (80.0-98.0); Mean Platelet Volume 9.1 fL (9.4-12.4); Monocytes Absolute Auto 1.1 X10*3/uL (0.1-1.2); Monocytes Percent Auto 8.1 % (2-11); NRBC Pct Auto 0.1 /100WBC (0.0-0.2); Neutrophils Absolute Auto 10.3 x10*3/uL (2.0-8.3); Neutrophils Percent Auto 73.2 % (45-73); Platelet Count 161 X10*3/uL (160-400); Red Blood Count 2.65 X10*6/uL (4.60-5.80); Red Cell Distribution Width 14.6 % (11.0-16.0)
--- NOTE | 2025-01-07 14:38 | PHA.MEDREC ---
Addendum entered by Sam Ramos RPh 01/07/25 14:59: MED REC CHECKED BY [facility] Original Note: Pharmacy Consult ? Medication Reconciliation Pharmacy has completed the medication reconciliation. [facility].
[2025-01-07 14:45] LABS: Anion Gap 13 (12-20); Blood Urea Nitrogen 64 mg/dL (9-16); Calcium 7.8 mg/dL (8.4-10.2); Carbon Dioxide 16 mmol/L (22-29); Chloride 117 mmol/L (96-108); Creatinine Clr Calc Pharmacy 76.9; Estimated Glomerular Filt Rate > 60; Glucose Random 157 mg/dL (60-115); Phosphorus 4.4 mg/dL (2.7-4.5); Potassium 4.6 mmol/L (3.3-5.1); Sodium 141 mmol/L (135-145)
--- NOTE | 2025-01-07 15:50 | PM.CCN ---
Critical Care Event Note Summary Date of Service: 01/07/25 Code activated: No Narrative: 69-year-old gentleman with underlying hep C, pancreatectomy and splenectomy for neuroendocrine tumor, admitted earlier today for syncopal episode secondary to acute blood loss anemia with an upper GI bleed. Patient did undergo EGD with inability to visualize bleed secondary to large clot burden. Patient remained intubated after the case and transferred to intensive care unit for overnight monitoring. Critical Care Time (minutes): 0
[2025-01-07] MEDS: propofoL 1,000 MG/100 ML VIAL 34.7 MG IVCONT ×3 (16:47→22:15)
[2025-01-07 17:04] LABS: Venous Blood Gas Refer to POC result
[2025-01-07 18:22] LABS: Appearance Urine Clear; Color Urine Yellow; Glucose Urine UA Negative (Negative); Leukocyte Esterase Urine Negative (Negative); Nitrite Urine Negative (Negative); PH 5.5 (5.0-9.0); Specific Gravity - Urine >= 1.030 (1.005-1.025); UMIC TRIGGER UACC YES; Urine Blood Trace (Negative); Urine Ketones Negative (Negative); Urine Protein Trace mg/dL (Neg-Trace)
[2025-01-07 18:34] LABS: Bacteria Urine None Seen (None Seen); RBC Urine 0-2 /HPF (0-2); Squamous Epithelial Cell Urine 0-2 /HPF (0-2); WBC Urine 0-5 /HPF (0-5)
[2025-01-07 20:09] LABS: Basophils Percent Auto 0.2 % (0-2); Eosinophils Absolute Auto 0.1 X10*3/uL (0.0-0.4); Eosinophils Percent Auto 0.5 % (0-4); Hematocrit 21.5 % (42.0-52.0); Hemoglobin 7.4 g/dl (14.0-18.0); Imm Gran Abs Auto 0.09 X10*3/uL (0.00-0.03); Imm Gran Pct Auto 0.6 % (0.0-0.4); Lymphocytes Absolute Auto 3.7 X10*3/uL (1.2-4.9); Lymphocytes Percent Auto 25.1 % (20-40); MANUAL DIFF FLAG NO; Mean Corpuscular HGB Conc 34.4 g/dl (31.0-36.0); Mean Corpuscular Hemoglobin 31.2 pg (27.0-33.0); Mean Corpuscular Volume 90.7 fL (80.0-98.0); Mean Platelet Volume 8.9 fL (9.4-12.4); Monocytes Absolute Auto 1.1 X10*3/uL (0.1-1.2); Monocytes Percent Auto 7.8 % (2-11); NRBC Pct Auto 0.2 /100WBC (0.0-0.2); Neutrophils Absolute Auto 9.6 x10*3/uL (2.0-8.3); Neutrophils Percent Auto 65.8 % (45-73); Platelet Count 159 X10*3/uL (160-400); Red Blood Count 2.37 X10*6/uL (4.60-5.80); Red Cell Distribution Width 15.1 % (11.0-16.0); White Blood Count 14.6 X10*3/uL (4.8-10.8)
[2025-01-07 21:24] LABS: Mean Corpuscular HGB Conc 34.2 g/dl (31.0-36.0); Mean Corpuscular Hemoglobin 30.9 pg (27.0-33.0); Mean Corpuscular Volume 90.6 fL (80.0-98.0); Mean Platelet Volume 9.1 fL (9.4-12.4); NRBC Pct Auto 0.1 /100WBC (0.0-0.2); Platelet Count 149 X10*3/uL (160-400); Red Blood Count 2.23 X10*6/uL (4.60-5.80); Red Cell Distribution Width 15.1 % (11.0-16.0); White Blood Count 13.5 X10*3/uL (4.8-10.8)
[2025-01-07 21:31] LABS: Hematocrit 20.2 % (42.0-52.0); Hemoglobin 6.9 g/dl (14.0-18.0)
[2025-01-08] VITALS (79 sets, daily range): BP systolic 83–179; BP diastolic 36–93; PULSE 95–142; RESP 12–29; TEMP 30–38.2; O2SAT 95–100; BMI 38.9
[2025-01-08] MEDS: propofoL 1,000 MG/100 ML VIAL 27.76 MG IVCONT (01:12)
[2025-01-08] MEDS: Norepinephrine Bitartrate/D5W 8 MG/250 ML PLAST..BAG 45.54 MG IVCONT (01:14)
[2025-01-08] MEDS: Albumin Human 25 % 50 ML 100 ML IV ×4 (01:23→02:58)
[2025-01-08 01:51] LABS: Hematocrit 22.1 % (42.0-52.0); Hemoglobin 7.4 g/dl (14.0-18.0); Mean Corpuscular HGB Conc 33.5 g/dl (31.0-36.0); Mean Corpuscular Volume 92.5 fL (80.0-98.0); Mean Platelet Volume 9.6 fL (9.4-12.4); NRBC Pct Auto 0.2 /100WBC (0.0-0.2); Platelet Count 121 X10*3/uL (160-400); Red Blood Count 2.39 X10*6/uL (4.60-5.80); Red Cell Distribution Width 15.6 % (11.0-16.0); White Blood Count 14.2 X10*3/uL (4.8-10.8)
[2025-01-08] MEDS: Lactated Ringers 500 ML 999 ML IV (03:11)
[2025-01-08] MEDS: Vasopressin 20 UNIT/100 ML INFUS..BTL 12 UNIT IVCONT (03:20)
--- NOTE | 2025-01-08 03:55 | W.PM.CCHP ---
Procedures Date of Service Date of Service: 01/08/25 Central Line Placement Right IJ: Central Line Comments: The right neck was widely prepped and draped in full sterile fashion.? Under US? guidance, the right IJ vein was cannulated on the 1st pass of the 18 g thin wall needle, with return of dark, nonpulsatile blood. ? The wire was threaded without incident.? The 16 cm x 7 Upper Sorbian triple-lumen CVC was advanced into the vein up to the hub via the Seldinger technique without incident.? There was good blood return x3.? The catheter was sutured x2 and a Biopatch and dry sterile dressing were applied. The patient tolerated the procedure well with no complications. Postop chest x-ray showed the line in good position with no pneumothorax.? The patient tolerated the procedure well with no complications. Consent for Procedure: Emergent-no informed consent obtained Time out performed: Yes Sterile Technique Used: Yes Patient placed on monitor/pulse ox: Yes MD prep: mask, gown and gloves Central line prep: Chlorhexidine scrub and sterile drapes applied Ultrasound used for placement: Yes Central line lumen inserted: triple Post procedure: sutured in place, good blood return, all ports aspirated, flushed, capped and sterile dressing applied Post procedure x-ray: tip of catheter in good position and no pneumothorax seen Patient tolerated procedure: well and no complications Complications: none
[2025-01-08 04:12] LABS: MANUAL DIFF FLAG NO
[2025-01-08 04:16] LABS: Basophils Percent Auto 0.1 % (0-2); Imm Gran Abs Auto 0.11 X10*3/uL (0.00-0.03); Imm Gran Pct Auto 0.8 % (0.0-0.4); Lymphocytes Absolute Auto 2.2 X10*3/uL (1.2-4.9); Lymphocytes Percent Auto 16.5 % (20-40); Mean Corpuscular HGB Conc 34.9 g/dl (31.0-36.0); Mean Corpuscular Hemoglobin 31.9 pg (27.0-33.0); Mean Corpuscular Volume 91.4 fL (80.0-98.0); Mean Platelet Volume 9.2 fL (9.4-12.4); Monocytes Absolute Auto 1.2 X10*3/uL (0.1-1.2); Monocytes Percent Auto 8.6 % (2-11); NRBC Pct Auto 0.3 /100WBC (0.0-0.2); Neutrophils Absolute Auto 9.9 x10*3/uL (2.0-8.3); Red Blood Count 1.63 X10*6/uL (4.60-5.80); Red Cell Distribution Width 15.3 % (11.0-16.0); Venous Blood Gas Refer to POC result; White Blood Count 13.4 X10*3/uL (4.8-10.8)
[2025-01-08] MEDS: propofoL 1,000 MG/100 ML VIAL 34.7 MG IVCONT ×8 (04:17→23:23)
[2025-01-08 04:20] LABS: VBG HCO3 16 mmol/L (22-26); VBG pCO2 30 mmHg; VBG pH 7.34 (7.32-7.43); VBG pO2 60 mmHg
[2025-01-08 04:34] LABS: Platelet Count 95 X10*3/uL (160-400)
[2025-01-08 04:35] LABS: Alanine Aminotransferase < 6 U/L (0-40); Albumin Level 3.3 g/dL (3.5-5.0); Alkaline Phosphatase 29 U/L (39-117); Anion Gap 12 (12-20); Aspartate Amino Transferase 23 U/L (5-37); Bilirubin Total 0.2 mg/dL (0.0-1.0); Blood Urea Nitrogen 71 mg/dL (9-16); Calcium 7.6 mg/dL (8.4-10.2); Carbon Dioxide 17 mmol/L (22-29); Chloride 117 mmol/L (96-108); Creatinine Clr Calc Pharmacy 56.8; Estimated Glomerular Filt Rate 43; Glucose Random 192 mg/dL (60-115); Magnesium 1.8 mg/dL (1.6-2.6); Phosphorus 3.2 mg/dL (2.7-4.5); Potassium 4.1 mmol/L (3.3-5.1); Sodium 142 mmol/L (135-145); Total Protein 4.6 g/dL (6.5-8.0)
[2025-01-08 04:39] LABS: Hematocrit 14.9 % (42.0-52.0)
[2025-01-08 04:40] LABS: Hemoglobin 5.2 g/dl (14.0-18.0)
[2025-01-08] MEDS: fentaNYL citrate/PF 100 MCG/2 ML VIAL 50 MCG IVPUSH (05:08)
--- NOTE | 2025-01-08 05:17 | PM.CCN ---
Critical Care Event Note Summary Date of Service: 01/08/25 Code activated: No Narrative: Pt is s/p EGD on 01/06/2025. Stomach was filled with blood and large clots in the fundus which could not be cleared. Hemospray was used to achieve temporary hemostasis with plan for repeat EGD this AM. Overnight, pt was given 1 u PRBC. He was noted to have a few large bloody BM approx 300-400 ml. Pressor requirements increased. He received LR, albumin. Labs redrawn. He became tachy to 150?s. Hgb 5.2. Bolus LR 1 L, 2 PRBC, 1 FFP, [address] angio ordered. Attending Dr Avelar, Dr Ballard, notified, in agreement with plan.? This case had a high probability of a clinically significant, sudden, or life threatening deterioration of this patient's condition which required my full and direct attention, intervention and personal management. Critical Care Time (minutes): 120
[2025-01-08] MEDS: Lactated Ringers 1,000 ML 999 ML IV (05:23)
[2025-01-08] MEDS: Norepinephrine Bitartrate/D5W 8 MG/250 ML PLAST..BAG 26.03 MG IVCONT (05:56)
[2025-01-08] MEDS: Pantoprazole Sodium 40 MG/10 ML VIAL IVPUSH ×2 (06:37→15:34)
--- NOTE | 2025-01-08 07:28 | PC.NURSE ---
CARE ASSUMED 7PM..INTUBATED/SEDATED...PROPOFOL AND LEVOPHED PER OCT...NSR HR 88-94....LR BOLUSES HUNG PRIOR SHIFT AND COMPLETED..PER SHIFT REPORT PATIENT PREVIOUSLY STRAIGHT CATH'D FOR 700ML..HNV SINCE DESPITE FLUID BOLUSES...DAUGHTER AT BEDSIDE AND STATED HE STRUGGLES TO PEE EVEN STANDING UP BECAUSE OF HIS PROSTATE ...BLADDER SCANNED 534ML...PRIETO CATHETER INSERTED PER PROVIDER...TRANSUSED PRBC X1...Hg IMPROVED TO 7.4.....INCREASED PRESSOR REQUIREMENT OVERNIGHT..DEVELOPED MULTIPLE LIQUIED BLACK STOOLS..(SHIFT REPORT RELATED BLACK STOOL X1)...ALBUMEN 25% 50ML X4 BAGS GIVEN.....LEVOPHED UP TP 0.21 MCG/KG/MIN...LR 500ML BOLUS GIVEN...PROVIDER PLACED TLC RIGHT JUGULAR SITE...AM LABS DRAWN APPROX 4AM.....HR BECAME ELEVATED FROM 110-112 TO 150-155 ..Hg 5.2...VASOPRESSIN 0.04 UNITS/MIN STARTED OVER 1 HOUR BEFORE.....LR 1000ML BOLUS GIVEN...PRBC X2 UNITS (ONE UNIT VIA PAPER DOCUMENTATION FROM LAB). LEVOPHED WEANED TO 0.12 MCG/KG/MIN AND VASOPRESSINN TO 0.02 UNITS/MIN PER PROVIDER..SINUS TACH HR 120'S..BP STABLE..FFP X1 GIVEN AT SHIFT CHANGE..RECTAL TUBE PLACED EARLIER PER PROVIDER FOR RECURRANT LIQUIED BLACK STOOLS GIVEN (ONE OF UNITS DOCUMENTED ON PAPER DOCUMENTATION...
[2025-01-08] MEDS: 0.9 % Sodium Chloride Flush 3 ML SYRINGE IVFLUSH ×3 (08:16→23:24)
[2025-01-08] MEDS: Calcium Gluconate/NaCl,Iso-Osm 2 GM/100 ML PLAST..BAG IV (08:16)
[2025-01-08] MEDS: Chlorhexidine Gluc Oral Rinse 15 ML MOUTHWASH BUCCAL ×3 (08:17→21:07)
[2025-01-08] MEDS: Erythromycin Lactobionate 250 MG in 0.9 % Sodium Chloride 100 ML 100 MG IV (08:58)
--- NOTE | 2025-01-08 09:23 | PC.RT ---
Pt placed on 100% fio2 for bedside procedure per MD, nurse aware.
--- NOTE | 2025-01-08 09:26 | P.PNGI_ITS ---
Subjective Subjective Date of Service: 01/08/25 Interval History: Informed by the ICU team at 5 am re further GIB and hemodynamic compromise. Pt on two pressors now. Recommendation made to initiate MTP and stat CTA as soon as the pt is stabilized. Communication continued with morning team. CTA deferred as pt not deemed stable for transport per their assessment. Critical Care Time (minutes): 0 Physical Exam 2 Vital Signs: Vital Signs: Last Vital Signs Temp 100.4 F 01/08/25 09:00 Pulse 107 H 01/08/25 09:00 Resp 20 01/08/25 09:00 BP 117/64 01/08/25 09:00 Pulse Ox 100 01/08/25 09:00 O2 Del Method Mechanical Ventil ation 01/08/25 09:00 FiO2 100 01/08/25 09:00 BMI result Body Mass Index 38.9 mechanically ventilated abd soft, distended Objective Data Labs 01/08/25 04:08 01/08/25 04:08 Labs: Laboratory Results - last 24 hr 01/07/25 01/07/25 01/07/25 02:07 14:25 14:28 WBC 14.0 H RBC 2.65 L Hgb 8.3 L Hct 24.8 L MCV 93.6 MCH 31.3 MCHC 33.5 RDW 14.6 Plt Count 161 MPV 9.1 L Immature Gran % (Auto) 1.0 H Neut % (Auto) 73.2 H Lymph % (Auto) 16.8 L [place] % (Auto) 8.1 Eos % (Auto) 0.7 Baso % (Auto) 0.2 Lymph # (Auto) 2.4 [place] # (Auto) 1.1 Eos # (Auto) 0.1 Baso # (Auto) 0.0 Abs Immat Gran (auto) 0.14 H Absolute Neuts (auto) 10.3 H Absolute Nucleated RBC 0.020 H Nucleated RBC % (auto) 0.1 VBG pH 7.28 L VBG pCO2 35 VBG pO2 33 VBG HCO3 17 L VBG O2 Saturation 50.0 VBG Base Excess -8.2 Sodium 141 Potassium 4.6 Chloride 117 H Carbon Dioxide 16 L Anion Gap 13 BUN 64 H Creatinine 1.19 Estim Creat Clear Calc 76.9 Estimated GFR > 60 Random Glucose 157 H Calcium 7.8 L Phosphorus 4.4 Magnesium 2.0 Total Bilirubin AST ALT Alkaline Phosphatase Total Protein Albumin Urine Color Urine Appearance Urine pH Ur Specific [place] Urine Protein Urine Glucose (UA) Urine Ketones Urine Blood Urine Nitrite Ur Leukocyte Esterase Urine RBC Urine WBC Ur Squamous Epith Cells Urine Bacteria Hyaline Casts Blood Type O Positive Antibody Screen NEGATIVE Crossmatch See Detail 01/07/25 01/07/25 01/07/25 18:03 20:02 21:02 WBC 14.6 H 13.5 H RBC 2.37 L 2.23 L Hgb 7.4 L 6.9 L* Hct 21.5 L 20.2 L* MCV 90.7 90.6 MCH 31.2 30.9 MCHC 34.4 34.2 RDW 15.1 15.1 Plt Count 159 L 149 L MPV 8.9 L 9.1 L Immature Gran % (Auto) 0.6 H Neut % (Auto) 65.8 Lymph % (Auto) 25.1 [place] % (Auto) 7.8 Eos % (Auto) 0.5 Baso % (Auto) 0.2 Lymph # (Auto) 3.7 [place] # (Auto) 1.1 Eos # (Auto) 0.1 Baso # (Auto) 0.0 Abs Immat Gran (auto) 0.09 H Absolute Neuts (auto) 9.6 H Absolute Nucleated RBC 0.030 H 0.020 H Nucleated RBC % (auto) 0.2 0.1 VBG pH VBG pCO2 VBG pO2 VBG HCO3 VBG O2 Saturation VBG Base Excess Sodium Potassium Chloride Carbon Dioxide Anion Gap BUN Creatinine Estim Creat Clear Calc Estimated GFR Random Glucose Calcium Phosphorus Magnesium Total Bilirubin AST ALT Alkaline Phosphatase Total Protein Albumin Urine Color Yellow Urine Appearance Clear Urine pH 5.5 Ur Specific [place] >= 1.030 H Urine Protein Trace Urine Glucose (UA) Negative Urine Ketones Negative Urine Blood Trace H Urine Nitrite Negative Ur Leukocyte Esterase Negative Urine RBC 0-2 Urine WBC 0-5 Ur Squamous Epith Cells 0-2 Urine Bacteria None Seen Hyaline Casts 6-10 Blood Type Antibody Screen Crossmatch 01/08/25 01/08/25 01/08/25 01:35 04:08 04:16 WBC 14.2 H 13.4 H RBC 2.39 L 1.63 L D Hgb 7.4 L 5.2 L* D Hct 22.1 L 14.9 L* D MCV 92.5 91.4 MCH 31.0 31.9 MCHC 33.5 34.9 RDW 15.6 15.3 Plt Count 121 L 95 L MPV 9.6 9.2 L Immature Gran % (Auto) 0.8 H Neut % (Auto) 74.0 H Lymph % (Auto) 16.5 L [place] % (Auto) 8.6 Eos % (Auto) 0.0 Baso % (Auto) 0.1 Lymph # (Auto) 2.2 [place] # (Auto) 1.2 Eos # (Auto) 0.0 Baso # (Auto) 0.0 Abs Immat Gran (auto) 0.11 H Absolute Neuts (auto) 9.9 H Absolute Nucleated RBC 0.030 H 0.040 H Nucleated RBC % (auto) 0.2 0.3 H VBG pH 7.34 VBG pCO2 30 VBG pO2 60 VBG HCO3 16 L VBG O2 Saturation TNP VBG Base Excess -8.0 Sodium 142 Potassium 4.1 Chloride 117 H Carbon Dioxide 17 L Anion Gap 12 BUN 71 H Creatinine 1.61 H Estim Creat Clear Calc 56.8 Estimated GFR 43 Random Glucose 192 H Calcium 7.6 L Phosphorus 3.2 Magnesium 1.8 Total Bilirubin 0.2 AST 23 ALT < 6 Alkaline Phosphatase 29 L Total Protein 4.6 L Albumin 3.3 L Urine Color Urine Appearance Urine pH Ur Specific [place] Urine Protein Urine Glucose (UA) Urine Ketones Urine Blood Urine Nitrite Ur Leukocyte Esterase Urine RBC Urine WBC Ur Squamous Epith Cells Urine Bacteria Hyaline Casts Blood Type Antibody Screen Crossmatch Microbiology Microbiology Results: Microbiology 01/07/25 03:20 Blood - Venous Blood Culture - Preliminary No growth after 24 hours. 01/07/25 01:00 Blood - Venous Blood Culture - Preliminary No growth after 24 hours. 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 Had an event of overt obscure bleeding January 2024. EGD note reviewed - note made of lesion in fundus of the stomach at that time that was not bleeding. Concern for possible fistula vs erosded vessel post pancreatectomy leading to GI hemorrhage. Again, stat CTA and IR intervention remains the recommendation from GI standpoint. Will also proceed with EGD as per ICU request to see if culprit bleeder can be visualized. Plan: - IV erythromycin 250 mg stat - Repeat cbc - EGD to be done urgently - IR team informed- case discussed with Dr Lilly Reviewed with the ICU team and daughter at bedside. Time Spent With Patient Time: Total time managing care of this patient today ____ minutes. Quality Stroke Does the patient have a stroke diagnosis?: No VTE Prior VTE?: No VTE Risk Level:: Medical - moderate - high VTE Device Contraindication: N/A - Device Ordered VTE Drug Contraindication: Treatment Not Indicated
[2025-01-08 09:45] LABS: Basophils Percent Auto 0.1 % (0-2); Eosinophils Percent Auto 0.1 % (0-4); Imm Gran Abs Auto 0.15 X10*3/uL (0.00-0.03); Imm Gran Pct Auto 0.8 % (0.0-0.4); Lymphocytes Absolute Auto 3.2 X10*3/uL (1.2-4.9); MANUAL DIFF FLAG SCAN; Mean Corpuscular HGB Conc 35.6 g/dl (31.0-36.0); Mean Corpuscular Hemoglobin 31.8 pg (27.0-33.0); Mean Corpuscular Volume 89.1 fL (80.0-98.0); Monocytes Absolute Auto 1.8 X10*3/uL (0.1-1.2); Monocytes Percent Auto 10.1 % (2-11); NRBC Pct Auto 0.4 /100WBC (0.0-0.2); Neutrophils Absolute Auto 12.8 x10*3/uL (2.0-8.3); Neutrophils Percent Auto 70.9 % (45-73); Red Blood Count 2.11 X10*6/uL (4.60-5.80); Red Cell Distribution Width 14.4 % (11.0-16.0); SCAN SMEAR FLAG 1
[2025-01-08] MEDS: Vasopressin 20 UNIT/100 ML INFUS..BTL 6 UNIT IVCONT (09:45)
[2025-01-08 09:51] LABS: Hemoglobin 6.7 g/dl (14.0-18.0)
[2025-01-08 09:52] LABS: Hematocrit 18.8 % (42.0-52.0)
[2025-01-08 10:11] LABS: Mean Platelet Volume 9.9 fL (9.4-12.4); Platelet Count 55 X10*3/uL (160-400)
[2025-01-08 10:12] LABS: SLIDE REVIEW VERIFIED
--- NOTE | 2025-01-08 10:30 | P.OP_ITS ---
Operative Note Operative Note Date of Service: 01/08/25 Narrative: Procedure: Esophagogastroduodenoscopy Endoscopist: Kate Ballard MD Indication: UGIB Anesthesia Type: GEA Instrument: [id number] ?? EGD Procedure:?? The procedure, indications, preparation and potential complications were reviewed with the patient's daughter, who indicated understanding and gave written informed consent to proceed. A physical exam was performed. The patient was already intubated in the ICU. The endoscope was introduced through the mouth, and advanced to the second part of duodenum. The mucosa was carefully examined on slow withdrawal of the endoscope. The patient tolerated the procedure well. There were no immediate complications.? ? EGD Findings:? * Esophagus:? Normal mucosa noted in the entire esophagus. Fresh blood was refluxing into the esophagus. * Stomach:? Stomach was filled with large volume of clots in the fundus and body limiting near complete visualization. Only antrum could be visualized. Attempt was made to displace the clots without much success. * Duodenum:? Old blood in duodenum. ? EGD Impressions:? * Normal esophagus * Fresh and old blood and clots in stomach * Normal duodenum ?? Recommendations:?? * Transfuse 2u PRBC jason * Consider TXA * Please keep on protonix drip * Keep NPO * IR team updated for pt to be taken for urgent embolization Daughters updated in ICU waiting room.
--- NOTE | 2025-01-08 10:30 | W.PM.OPN ---
Operative Note Operative Note Date of Service: 01/08/25 Narrative: Procedure: Esophagogastroduodenoscopy Endoscopist: Kate Ballard MD Indication: UGIB Anesthesia Type: GEA Instrument: [id number] ?? EGD Procedure:?? The procedure, indications, preparation and potential complications were reviewed with the patient's daughter, who indicated understanding and gave written informed consent to proceed. A physical exam was performed. The patient was already intubated in the ICU. The endoscope was introduced through the mouth, and advanced to the second part of duodenum. The mucosa was carefully examined on slow withdrawal of the endoscope. The patient tolerated the procedure well. There were no immediate complications.? ? EGD Findings:? Esophagus:? Normal mucosa noted in the entire esophagus. Fresh blood was refluxing into the esophagus. Stomach:? Stomach was filled with large volume of clots in the fundus and body limiting near complete visualization. Only antrum could be visualized. Attempt was made to displace the clots without much success. Duodenum:? Old blood in duodenum. ? EGD Impressions:? Normal esophagus Fresh and old blood and clots in stomach Normal duodenum ?? Recommendations:?? Transfuse 2u PRBC jason Consider TXA Please keep on protonix drip Keep NPO IR team updated for pt to be taken for urgent embolization Daughters updated in ICU waiting room.
--- NOTE | 2025-01-08 10:38 | PM.CNGS ---
History of Present Illness Consult details Consult date: 01/08/25 Narrative: 69-year-old male admitted yesterday for abdominal pain, nausea and presyncopal symptoms. He was noted to be markedly anemic with a hemoglobin 8.1. He underwent EGD yesterday and large amounts of blood was seen in the stomach. He then had massive amounts of blood per rectum overnight. I repeat EGD was done this morning which again showed large amounts of blood in the stomach with poor visualization He has undergone transfusion of 6 units of packed RBCs since this morning. His last H&H this morning was 6.7. He remains hypotensive. 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 He had been admitted to [facility] sometime last year for similar episodes of bleeding and GI workup done at that time did not reveal an obvious pathology. The the patient is currently intubated on the ventilator. Review of Systems Review of Systems: Yes unobtainable due to endotracheal tube and Unobtainable due to mental condition [facility] Past Medical History Medical History (Updated 01/09/25 @ 09:42 by Megan Allen RN) BPH (benign prostatic hyperplasia) Hypertension Upper GI bleed SCHULTZ (nonalcoholic steatohepatitis) Erectile dysfunction Chronic hepatitis C virus genotype 1a infection Surgical History Surgical History History of pancreatectomy Hx of splenectomy Social History Social History Household Members: Unknown / Unable to assess Housing: Unknown / Unable to assess Are you a primary care management associate to a significant other at home: No Comment: bilateral wrist restraints for airway safety Patient Tobacco Use Status: Never used Tobacco service: Yes Meds Allergies Allergy/AdvReac Type Severity Reaction Status Date / Time No Known Allergies Allergy Verified 01/06/25 23:09 Active Medications: Current Medications Chlorhexidine Gluconate (Chlorhexidine Gluc Oral Rinse 15 Ml Mouthwash) 15 ml BUCCAL TID [facility] Last Admin: 01/08/25 08:17 Dose: 15 ml Propofol (Diprivan) 1,000 mg in 100 mls @ 0 mls/hr IVCONT .Q0M [facility]; Protocol Last Admin: 01/08/25 09:44 Dose: 50 mcg/kg/min, 34.7 mls/hr Norepinephrine Bitartrate (Levophed) 8 mg in 250 mls @ 0 mls/hr IVCONT .Q0M [facility]; Protocol Last Titration: 01/08/25 10:24 Dose: 0.14 mcg/kg/min, 30.36 mls/hr Vasopressin (Vasostrict) 20 unit in 100 mls @ 12 mls/hr IVCONT .Q8H20M [facility]; Protocol Last Admin: 01/08/25 09:45 Dose: 0.02 unit/min, 6 mls/hr Pantoprazole Sodium (Pantoprazole Sodium 40 Mg/10 Ml Vial) 40 mg IVPUSH BID@0630,1630 [facility] Last Admin: 01/08/25 06:37 Dose: 40 mg Sodium Chloride (0.9 % Sodium Chloride Flush 3 Ml Syringe) 3 ml IVFLUSH QSHIFT [facility] Last Admin: 01/08/25 08:16 Dose: 3 ml Home Medications ?Medication ?Instructions ?Recorded ?Confirmed ?Last Taken ?Type aspirin 81 mg tablet,delayed 81 mg PO DAILY 04/24/21 01/07/25 Unknown History release brinzolamide 1 %-brimonidine 0.2 % 1 drp ophthalmic (eye) BID 01/07/25 01/07/25 Unknown History eye drops,suspension (Simbrinza) capsaicin 0.1 % topical cream 1 appl topical BID 01/07/25 01/07/25 Unknown History ferrous gluconate 324 mg (38 mg 324 mg PO Q48H 01/07/25 01/07/25 Unknown History iron) tablet hydroxyzine HCl 25 mg tablet 25 mg PO BEDTIME PRN Insomnia 01/07/25 01/07/25 Unknown History lisinopril 10 mg tablet 10 mg PO DAILY 01/07/25 01/07/25 Unknown History mineral oil-hydrophil petrolat 1 appl topical BID 01/07/25 01/07/25 Unknown History topical ointment tadalafil 20 mg tablet 20 mg PO DAILY 01/07/25 01/07/25 Unknown History Physical Exam Vital Signs: Vital Signs: Last Vital Signs Temp 100.8 F H 01/08/25 10:28 Pulse 99 01/08/25 10:28 Resp 24 H 01/08/25 10:28 BP 99/36 L 01/08/25 10:28 Pulse Ox 100 01/08/25 09:00 O2 Del Method Mechanical Ventil ation 01/08/25 09:00 FiO2 100 01/08/25 09:00 BMI result Body Mass Index 38.9 Const: Other: Intubated , on ventilator Resp: Other: On ventilator Cardio: Rate: tachycardic GI: Other: Soft, protuberant abdomen, obese Results Labs 01/09/25 04:40 01/09/25 04:40 Labs: Abnormal lab results 01/07/25 01/07/25 01/07/25 Range/Units 02:07 14:25 14:28 WBC 14.0 H (4.8-10.8) X10*3/uL RBC 2.65 L (4.60-5.80) X10*6/uL Hgb 8.3 L (14.0-18.0) g/dl Hct 24.8 L (42.0-52.0) % Plt Count (160-400) X10*3/uL MPV 9.1 L (9.4-12.4) fL Immature Gran % (Auto) 1.0 H (0.0-0.4) % Neut % (Auto) 73.2 H (45-73) % Lymph % (Auto) 16.8 L (20-40) % [place] # (Auto) (0.1-1.2) X10*3/uL Abs Immat Gran (auto) 0.14 H (0.00-0.03) X10*3/uL Absolute Neuts (auto) 10.3 H (2.0-8.3) x10*3/uL Absolute Nucleated RBC 0.020 H (0.0-0.012) X10*3/uL Nucleated RBC % (auto) (0.0-0.2) /100WBC VBG pH 7.28 L (7.32-7.43) VBG HCO3 17 L (22-26) mmol/L Chloride 117 H (96-108) mmol/L Carbon Dioxide 16 L (22-29) mmol/L BUN 64 H (9-16) mg/dL Creatinine (0.5-1.4) mg/dL Random Glucose 157 H (60-115) mg/dL Calcium 7.8 L (8.4-10.2) mg/dL Alkaline Phosphatase (39-117) U/L Total Protein (6.5-8.0) g/dL Albumin (3.5-5.0) g/dL Ur Specific [place] (1.005-1.025) Urine Blood (Negative) Crossmatch See Detail 01/07/25 01/07/25 01/07/25 Range/Units 18:03 20:02 21:02 WBC 14.6 H 13.5 H (4.8-10.8) X10*3/uL RBC 2.37 L 2.23 L (4.60-5.80) X10*6/uL Hgb 7.4 L 6.9 L* (14.0-18.0) g/dl Hct 21.5 L 20.2 L* (42.0-52.0) % Plt Count 159 L 149 L (160-400) X10*3/uL MPV 8.9 L 9.1 L (9.4-12.4) fL Immature Gran % (Auto) 0.6 H (0.0-0.4) % Neut % (Auto) (45-73) % Lymph % (Auto) (20-40) % [place] # (Auto) (0.1-1.2) X10*3/uL Abs Immat Gran (auto) 0.09 H (0.00-0.03) X10*3/uL Absolute Neuts (auto) 9.6 H (2.0-8.3) x10*3/uL Absolute Nucleated RBC 0.030 H 0.020 H (0.0-0.012) X10*3/uL Nucleated RBC % (auto) (0.0-0.2) /100WBC VBG pH (7.32-7.43) VBG HCO3 (22-26) mmol/L Chloride (96-108) mmol/L Carbon Dioxide (22-29) mmol/L BUN (9-16) mg/dL Creatinine (0.5-1.4) mg/dL Random Glucose (60-115) mg/dL Calcium (8.4-10.2) mg/dL Alkaline Phosphatase (39-117) U/L Total Protein (6.5-8.0) g/dL Albumin (3.5-5.0) g/dL Ur Specific [place] >= 1.030 H (1.005-1.025) Urine Blood Trace H (Negative) Crossmatch 01/08/25 01/08/25 01/08/25 Range/Units 01:35 04:08 04:16 WBC 14.2 H 13.4 H (4.8-10.8) X10*3/uL RBC 2.39 L 1.63 L D (4.60-5.80) X10*6/uL Hgb 7.4 L 5.2 L* D (14.0-18.0) g/dl Hct 22.1 L 14.9 L* D (42.0-52.0) % Plt Count 121 L 95 L (160-400) X10*3/uL MPV 9.2 L (9.4-12.4) fL Immature Gran % (Auto) 0.8 H (0.0-0.4) % Neut % (Auto) 74.0 H (45-73) % Lymph % (Auto) 16.5 L (20-40) % [place] # (Auto) (0.1-1.2) X10*3/uL Abs Immat Gran (auto) 0.11 H (0.00-0.03) X10*3/uL Absolute Neuts (auto) 9.9 H (2.0-8.3) x10*3/uL Absolute Nucleated RBC 0.030 H 0.040 H (0.0-0.012) X10*3/uL Nucleated RBC % (auto) 0.3 H (0.0-0.2) /100WBC VBG pH (7.32-7.43) VBG HCO3 16 L (22-26) mmol/L Chloride 117 H (96-108) mmol/L Carbon Dioxide 17 L (22-29) mmol/L BUN 71 H (9-16) mg/dL Creatinine 1.61 H (0.5-1.4) mg/dL Random Glucose 192 H (60-115) mg/dL Calcium 7.6 L (8.4-10.2) mg/dL Alkaline Phosphatase 29 L (39-117) U/L Total Protein 4.6 L (6.5-8.0) g/dL Albumin 3.3 L (3.5-5.0) g/dL Ur Specific [place] (1.005-1.025) Urine Blood (Negative) Crossmatch 01/08/25 Range/Units 09:34 WBC 18.0 H (4.8-10.8) X10*3/uL RBC 2.11 L D (4.60-5.80) X10*6/uL Hgb 6.7 L* D (14.0-18.0) g/dl Hct 18.8 L* D (42.0-52.0) % Plt Count 55 L D (160-400) X10*3/uL MPV (9.4-12.4) fL Immature Gran % (Auto) 0.8 H (0.0-0.4) % Neut % (Auto) (45-73) % Lymph % (Auto) 18.0 L (20-40) % [place] # (Auto) 1.8 H (0.1-1.2) X10*3/uL Abs Immat Gran (auto) 0.15 H (0.00-0.03) X10*3/uL Absolute Neuts (auto) 12.8 H (2.0-8.3) x10*3/uL Absolute Nucleated RBC 0.070 H (0.0-0.012) X10*3/uL Nucleated RBC % (auto) 0.4 H (0.0-0.2) /100WBC VBG pH (7.32-7.43) VBG HCO3 (22-26) mmol/L Chloride (96-108) mmol/L Carbon Dioxide (22-29) mmol/L BUN (9-16) mg/dL Creatinine (0.5-1.4) mg/dL Random Glucose (60-115) mg/dL Calcium (8.4-10.2) mg/dL Alkaline Phosphatase (39-117) U/L Total Protein (6.5-8.0) g/dL Albumin (3.5-5.0) g/dL Ur Specific [place] (1.005-1.025) Urine Blood (Negative) Crossmatch Short CBC 01/07/25 01/07/25 01/07/25 Range/Units 14:25 20:02 21:02 WBC 14.0 H 14.6 H 13.5 H (4.8-10.8) X10*3/uL Hgb 8.3 L 7.4 L 6.9 L* (14.0-18.0) g/dl Hct 24.8 L 21.5 L 20.2 L* (42.0-52.0) % Plt Count 161 159 L 149 L (160-400) X10*3/uL 01/08/25 01/08/25 01/08/25 Range/Units 01:35 04:08 09:34 WBC 14.2 H 13.4 H 18.0 H (4.8-10.8) X10*3/uL Hgb 7.4 L 5.2 L* D 6.7 L* D (14.0-18.0) g/dl Hct 22.1 L 14.9 L* D 18.8 L* D (42.0-52.0) % Plt Count 121 L 95 L 55 L D (160-400) X10*3/uL BMP 01/07/25 01/08/25 14:25 04:08 Sodium 141 142 Potassium 4.6 4.1 Chloride 117 H 117 H Carbon Dioxide 16 L 17 L BUN 64 H 71 H Creatinine 1.19 1.61 H Calcium 7.8 L 7.6 L Liver Function 01/08/25 Range/Units 04:08 Total Bilirubin 0.2 (0.0-1.0) mg/dL AST 23 (5-37) U/L ALT < 6 (0-40) U/L Alkaline Phosphatase 29 L (39-117) U/L Albumin 3.3 L (3.5-5.0) g/dL Urine 01/07/25 Range/Units 18:03 Urine Color Yellow Urine Appearance Clear Urine pH 5.5 (5.0-9.0) Ur Specific [place] >= 1.030 H (1.005-1.025) Urine Protein Trace (Neg-Trace) mg/dL Urine Glucose (UA) Negative (Negative) mg/dL All other labs normal. Assessment and Plan (1) Acute blood loss anemia: Status: Acute He had an upper GI endoscopy yesterday showing large amounts of blood in the stomach with subsequent poor visualization. I have reviewed his CAT scan images from the ER and this shows poor planes, question of induration between the stomach and the remaining pancreas. He did have a previous distal pancreatectomy last year for a neuroendocrine tumor. Suspicion of recurrent tumor, with erosion into the stomach and subsequent bleeding is a consideration. I have recommended proceeding with urgent angiogram and embolization if possible. The patient is critically ill at this time in view of his massive blood loss. Procedures Date of Service Date of Service: 01/09/25
--- NOTE | 2025-01-08 11:09 | HO.POSTANES ---
Post Anesthesia Evaluation Post Anesthesia Evaluation Date of Service: 01/08/25 Vital Signs: Vital Signs Temp Pulse Resp BP Pulse Ox O2 Del Method FiO2 01/08/25 11:08 100.6 F H 101 H 21 H 129/59 L 01/08/25 11:04 100.6 F H 103 H 26 H 122/61 01/08/25 11:03 100.6 F H 103 H 26 H 122/61 01/08/25 11:02 100.6 F H 103 H 26 H 122/61 01/08/25 10:53 100.8 F H 95 29 H 123/63 01/08/25 10:49 100.8 F H 97 19 123/54 L 01/08/25 10:46 100.8 F H 99 22 H 166/45 H 01/08/25 10:44 100.8 F H 96 16 108/53 L 01/08/25 10:28 100.8 F H 99 24 H 99/36 L 01/08/25 10:24 100 88/39 L 01/08/25 10:15 100.8 F H 101 H 22 H 89/45 L 01/08/25 09:45 111 H 117/60 01/08/25 09:45 111 H 117/60 01/08/25 09:00 100.4 F 107 H 20 117/64 100 Mechanical Ventilation 100 01/08/25 08:50 100.4 F 110 H 20 103/61 01/08/25 08:45 100.4 F 111 H 22 H 108/64 01/08/25 08:11 100.4 F 132 H 21 H 98/59 L 01/08/25 08:00 100.4 F 135 H 21 H 104/61 100 Mechanical Ventilation 60 01/08/25 07:39 60 01/08/25 07:37 100 60 01/08/25 07:25 100 F 138 H 20 109/68 01/08/25 07:24 100 F 138 H 17 109/68 01/08/25 07:00 99.9 F 136 H 20 119/70 100 Mechanical Ventilation 30 01/08/25 06:41 99.7 F 135 H 18 104/56 L 01/08/25 06:39 135 H 20 104/56 L 01/08/25 06:39 135 H 20 104/56 L 01/08/25 06:16 126 H 137/73 01/08/25 06:00 99.7 F 127 H 20 101/57 L 100 Mechanical Ventilation 01/08/25 05:59 99.7 F 125 H 20 134/70 01/08/25 05:56 122 H 152/70 H 01/08/25 05:56 122 H 152/70 H 01/08/25 05:48 124 H 150/74 H 01/08/25 05:48 99.9 F 126 H 18 150/74 H 01/08/25 05:34 100.2 F 121 H 18 145/70 H 01/08/25 05:31 100.2 F 124 H 18 145/70 H 01/08/25 05:00 142 H 23 H 133/60 100 Mechanical Ventilation 01/08/25 04:59 01/08/25 04:17 100 22 H 154/59 H 01/08/25 04:17 100 22 H 154/59 H 01/08/25 04:00 30 01/08/25 04:00 100.4 F 103 H 22 H 124/55 L 97 Mechanical Ventilation 01/08/25 03:20 110 H 96/40 L 01/08/25 03:12 112 H 24 H 97/45 L 01/08/25 03:00 100.2 F 103 H 20 129/53 L 98 Mechanical Ventilation 01/08/25 02:00 100.6 F H 111 H 25 H 86/43 L 100 Mechanical Ventilation 01/08/25 01:18 100.0 F 105 H 21 H 89/53 L 01/08/25 01:14 104 H 89/53 L 01/08/25 01:14 104 H 89/53 L 01/08/25 01:12 104 H 20 85/51 L 01/08/25 01:12 104 H 20 85/51 L 01/08/25 01:00 100.0 F 103 H 21 H 89/53 L 100 Mechanical Ventilation 01/08/25 00:46 110 H 20 89/47 L 01/08/25 00:45 110 H 89/47 L 01/08/25 00:33 110 H 90/42 L 01/08/25 00:00 100.4 F 111 H 23 H 101/49 L 100 Mechanical Ventilation 01/08/25 00:00 01/07/25 23:36 110 H 94/44 L 01/07/25 23:15 100.4 F 113 H 22 H 104/52 L 01/07/25 23:14 30 Anesthesia: General Endotracheal-GETA Comments: critical in icu , intubated on pressors , resuscitated for gi bleed ongoing
--- NOTE | 2025-01-08 11:25 | MHC.CLN ---
CONSULT PT MAY REQUIRE TF FOR NUTRITION SUPPORT R/T PROLONGED NPO STATUS PT CURRENTLY NPO R/T GIB DISCUSSED AT ROUNDS WITH MD IF TF NEEDED; RECOMMEND NEPRO TF AT 25ML/HR TO PROVIDE 1080KCALS (1996KCALS WITH SEDATION; 25KCALS/KG), 48.6G PROTEIN, 436ML FREE WATER MONITOR TOLERANCE AND LYTES SEE FULL CLINICAL NUTRITION ASSESSMENT RD CAN BE REACHED VIS TIGER CONNECT DURING OFF HOURS IF NEEDED
--- NOTE | 2025-01-08 12:34 | MHC.CM.PN ---
PT REMAINS IN ICU ON VENTILATORY AND PRESSOR SUPPORT. CM WILL CONTINUE TO FOLLOW FOR PLAN.
[2025-01-08 14:37] LABS: Base Excess Bedside Calculated -9 mmol/L (-3-3); Glucose, i-STAT 175 mg/dL (60-115); HCO3 Bedside Calculated 19 mmol/L (22-26); Hematocrit Bedside 23 %PCV (42-52); Hemoglobin Bedside 7.8 g/dL (14.0-18.0); Potassium Bedside 4.6 mmol/L (3.3-5.1); SO2 Bedside Calculated 80 %; Sodium Bedside 142 mmol/L (135-145); TCO2 Bedside 21 mmol/L (24-29); pCO2 Bedside 53 mmhg (35-48); pH Bedside 7.18 (7.35-7.45); pO2 Bedside 56 mmhg (83-108)
--- NOTE | 2025-01-08 14:53 | PM.EVENT ---
Event Note Date of Service: 01/08/25 Event Note: Pt was taken to IR suite earlier today. Per message received from Dr. Martins: Unfortunately, I cannot dictate the case, but I embolized the left gastric and the terminus of the right gastroepiploic where it meets the left gastroepiploic. This was adjacent to a clip and an area that appeared somewhat hyperemic. I did not see any other bleeding and I evaluated the SMA as well. Patient seen at bedside post embolization. Both the pressors have been switched off, blood pressure is holding with systolic 160s. Rectal tube continues with maroon melena as expected- more accurate markers of ongoing GI bleed will be hemodynamics and H&H, as we can expect to see residual melena for at least 12-24 hours post bleeding event. Continue Protonix drip Repeat CBC BMP - will likely have a further decline in renal function from contrast load. If there is rebleeding, may need surgical evaluation and intervention. Case signed out to weekend GI coverage. Time Spent With Patient Time: Total time managing care of this patient today ____ minutes.
[2025-01-08 15:20] LABS: MANUAL DIFF FLAG NO
[2025-01-08 15:22] LABS: VBG Base Excess -5.6 mmol/L; VBG HCO3 19 mmol/L (22-26); VBG pCO2 37 mmHg; VBG pH 7.32 (7.32-7.43); VBG pO2 37 mmHg
[2025-01-08 15:32] LABS: Basophils Percent Auto 0.2 % (0-2); Hematocrit 25.2 % (42.0-52.0); Hemoglobin 8.8 g/dl (14.0-18.0); Imm Gran Abs Auto 0.07 X10*3/uL (0.00-0.03); Imm Gran Pct Auto 0.6 % (0.0-0.4); Lymphocytes Absolute Auto 1.6 X10*3/uL (1.2-4.9); Lymphocytes Percent Auto 13.9 % (20-40); Mean Corpuscular HGB Conc 34.9 g/dl (31.0-36.0); Monocytes Absolute Auto 0.8 X10*3/uL (0.1-1.2); Monocytes Percent Auto 7.1 % (2-11); NRBC Pct Auto 0.7 /100WBC (0.0-0.2); Neutrophils Absolute Auto 9.3 x10*3/uL (2.0-8.3); Neutrophils Percent Auto 78.2 % (45-73); Red Blood Count 2.93 X10*6/uL (4.60-5.80); Red Cell Distribution Width 14.9 % (11.0-16.0); White Blood Count 11.8 X10*3/uL (4.8-10.8)
[2025-01-08 15:33] LABS: Platelet Count 42 X10*3/uL (160-400)
--- NOTE | 2025-01-08 15:34 | P.PNCC_ITS ---
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 On ER evaluation patient with melena and presyncopal event. Patient had initial EGD on 01/07/2025 that demonstrated large amount of clots with inability to locate the source. Patient was kept intubated at the end of procedure and transferred to the intensive care unit. Overnight 01/07-01/08 patient with development of brisk upper GI bleeding with significant hemodynamic instability requiring pressor support and total of 11 units of packed red blood cells, 4 FFP, and 2 platelets. Patient had repeat upper endoscopy on 01/08/2025 with inability to locate the bleed again. Thereafter, taking for IR embolization with resolution of bleeding at that time. Now monitored in the intensive care unit. Remains intubated. Overnight events as above. Critical Care Time (minutes): 120 Physical Exam 2 Vital Signs: Vital Signs: Last Vital Signs Temp 99.9 F 01/08/25 15:00 Pulse 101 H 01/08/25 15:28 Resp 22 H 01/08/25 15:00 BP 76/44 L 01/08/25 15:28 Pulse Ox 100 01/08/25 15:31 O2 Del Method Mechanical Ventil ation 01/08/25 15:00 FiO2 50 01/08/25 15:31 BMI result Body Mass Index 38.9 Const: General: no acute distress and other (Sedated on ventilatory support) Eyes: Sclerae: sclerae normal EOM: EOMs intact bilaterally Neck: Neck: Yes no lymphadenopathy, Yes trachea midline and Yes supple Resp: Auscultation: crackles (Mild bilateral) Cardio: Rate: tachycardic Rhythm: regular rhythm Heart sounds: no gallops, no murmurs and no rubs GI: Palpation (GI): Soft to palpation and Other GI palpation findings present ( Nontender) Auscultation: normal bowel sounds Extrem: General: No clubbing, No cyanosis and Yes edema (1+ bilateral) Objective Data Labs 01/08/25 09:34 01/08/25 04:08 Labs: Laboratory Results - last 24 hr 01/07/25 01/07/25 01/07/25 02:07 18:03 20:02 WBC 14.6 H RBC 2.37 L Hgb 7.4 L POC Hgb (Calc) Hct 21.5 L POC Hct MCV 90.7 MCH 31.2 MCHC 34.4 RDW 15.1 Plt Count 159 L MPV 8.9 L Immature Gran % (Auto) 0.6 H Neut % (Auto) 65.8 Lymph % (Auto) 25.1 [place] % (Auto) 7.8 Eos % (Auto) 0.5 Baso % (Auto) 0.2 Lymph # (Auto) 3.7 [place] # (Auto) 1.1 Eos # (Auto) 0.1 Baso # (Auto) 0.0 Abs Immat Gran (auto) 0.09 H Absolute Neuts (auto) 9.6 H Absolute Nucleated RBC 0.030 H Nucleated RBC % (auto) 0.2 Smear Tech's Comments POC Std Base Excess POC O2 Sat (Calc) POC ABG pO2 POC ABG Total CO2 VBG pH VBG pCO2 VBG pO2 VBG HCO3 VBG O2 Saturation VBG Base Excess POC Capillary pH POC Capillary pCO2 POC Cap HCO3 (Calc) POC Sodium Sodium POC Potassium Potassium Chloride Carbon Dioxide Anion Gap BUN Creatinine Estim Creat Clear Calc Estimated GFR POC Glucose Random Glucose Calcium Phosphorus Magnesium Total Bilirubin AST ALT Alkaline Phosphatase Total Protein Albumin Urine Color Yellow Urine Appearance Clear Urine pH 5.5 Ur Specific [place] >= 1.030 H Urine Protein Trace Urine Glucose (UA) Negative Urine Ketones Negative Urine Blood Trace H Urine Nitrite Negative Ur Leukocyte Esterase Negative Urine RBC 0-2 Urine WBC 0-5 Ur Squamous Epith Cells 0-2 Urine Bacteria None Seen Hyaline Casts 6-10 Blood Type O Positive Antibody Screen NEGATIVE Crossmatch See Detail 01/07/25 01/08/25 01/08/25 21:02 01:35 04:08 WBC 13.5 H 14.2 H 13.4 H RBC 2.23 L 2.39 L 1.63 L D Hgb 6.9 L* 7.4 L 5.2 L* D POC Hgb (Calc) Hct 20.2 L* 22.1 L 14.9 L* D POC Hct MCV 90.6 92.5 91.4 MCH 30.9 31.0 31.9 MCHC 34.2 33.5 34.9 RDW 15.1 15.6 15.3 Plt Count 149 L 121 L 95 L MPV 9.1 L 9.6 9.2 L Immature Gran % (Auto) 0.8 H Neut % (Auto) 74.0 H Lymph % (Auto) 16.5 L [place] % (Auto) 8.6 Eos % (Auto) 0.0 Baso % (Auto) 0.1 Lymph # (Auto) 2.2 [place] # (Auto) 1.2 Eos # (Auto) 0.0 Baso # (Auto) 0.0 Abs Immat Gran (auto) 0.11 H Absolute Neuts (auto) 9.9 H Absolute Nucleated RBC 0.020 H 0.030 H 0.040 H Nucleated RBC % (auto) 0.1 0.2 0.3 H Smear Tech's Comments POC Std Base Excess POC O2 Sat (Calc) POC ABG pO2 POC ABG Total CO2 VBG pH VBG pCO2 VBG pO2 VBG HCO3 VBG O2 Saturation VBG Base Excess POC Capillary pH POC Capillary pCO2 POC Cap HCO3 (Calc) POC Sodium Sodium 142 POC Potassium Potassium 4.1 Chloride 117 H Carbon Dioxide 17 L Anion Gap 12 BUN 71 H Creatinine 1.61 H Estim Creat Clear Calc 56.8 Estimated GFR 43 POC Glucose Random Glucose 192 H Calcium 7.6 L Phosphorus 3.2 Magnesium 1.8 Total Bilirubin 0.2 AST 23 ALT < 6 Alkaline Phosphatase 29 L Total Protein 4.6 L Albumin 3.3 L Urine Color Urine Appearance Urine pH Ur Specific [place] Urine Protein Urine Glucose (UA) Urine Ketones Urine Blood Urine Nitrite Ur Leukocyte Esterase Urine RBC Urine WBC Ur Squamous Epith Cells Urine Bacteria Hyaline Casts Blood Type Antibody Screen Crossmatch 01/08/25 01/08/25 01/08/25 04:16 09:34 12:35 WBC 18.0 H RBC 2.11 L D Hgb 6.7 L* D POC Hgb (Calc) 7.8 L Hct 18.8 L* D POC Hct 23 L MCV 89.1 MCH 31.8 MCHC 35.6 RDW 14.4 Plt Count 55 L D MPV 9.9 Immature Gran % (Auto) 0.8 H Neut % (Auto) 70.9 Lymph % (Auto) 18.0 L [place] % (Auto) 10.1 Eos % (Auto) 0.1 Baso % (Auto) 0.1 Lymph # (Auto) 3.2 [place] # (Auto) 1.8 H Eos # (Auto) 0.0 Baso # (Auto) 0.0 Abs Immat Gran (auto) 0.15 H Absolute Neuts (auto) 12.8 H Absolute Nucleated RBC 0.070 H Nucleated RBC % (auto) 0.4 H Smear Tech's Comments VERIFIED POC Std Base Excess -9 L POC O2 Sat (Calc) 80 POC ABG pO2 56 L POC ABG Total CO2 21 L VBG pH 7.34 VBG pCO2 30 VBG pO2 60 VBG HCO3 16 L VBG O2 Saturation TNP VBG Base Excess -8.0 POC Capillary pH 7.18 L* POC Capillary pCO2 53 H POC Cap HCO3 (Calc) 19 L POC Sodium 142 Sodium POC Potassium 4.6 Potassium Chloride Carbon Dioxide Anion Gap BUN Creatinine Estim Creat Clear Calc Estimated GFR POC Glucose 175 H Random Glucose Calcium Phosphorus Magnesium Total Bilirubin AST ALT Alkaline Phosphatase Total Protein Albumin Urine Color Urine Appearance Urine pH Ur Specific [place] Urine Protein Urine Glucose (UA) Urine Ketones Urine Blood Urine Nitrite Ur Leukocyte Esterase Urine RBC Urine WBC Ur Squamous Epith Cells Urine Bacteria Hyaline Casts Blood Type Antibody Screen Crossmatch 01/08/25 15:17 WBC RBC Hgb POC Hgb (Calc) Hct POC Hct MCV MCH MCHC RDW Plt Count MPV Immature Gran % (Auto) Neut % (Auto) Lymph % (Auto) [place] % (Auto) Eos % (Auto) Baso % (Auto) Lymph # (Auto) [place] # (Auto) Eos # (Auto) Baso # (Auto) Abs Immat Gran (auto) Absolute Neuts (auto) Absolute Nucleated RBC Nucleated RBC % (auto) Smear Tech's Comments POC Std Base Excess POC O2 Sat (Calc) POC ABG pO2 POC ABG Total CO2 VBG pH 7.32 VBG pCO2 37 VBG pO2 37 VBG HCO3 19 L VBG O2 Saturation 67.0 VBG Base Excess -5.6 POC Capillary pH POC Capillary pCO2 POC Cap HCO3 (Calc) POC Sodium Sodium POC Potassium Potassium Chloride Carbon Dioxide Anion Gap BUN Creatinine Estim Creat Clear Calc Estimated GFR POC Glucose Random Glucose Calcium Phosphorus Magnesium Total Bilirubin AST ALT Alkaline Phosphatase Total Protein Albumin Urine Color Urine Appearance Urine pH Ur Specific [place] Urine Protein Urine Glucose (UA) Urine Ketones Urine Blood Urine Nitrite Ur Leukocyte Esterase Urine RBC Urine WBC Ur Squamous Epith Cells Urine Bacteria Hyaline Casts Blood Type Antibody Screen Crossmatch Microbiology Microbiology Results: Microbiology 01/07/25 03:20 Blood - Venous Blood Culture - Preliminary No growth after 24 hours. 01/07/25 01:00 Blood - Venous Blood Culture - Preliminary No growth after 24 hours. Progress Note: A&P Assessment and plan (1) Acute upper GI bleed: Status: Acute (2) Hemorrhagic shock: Status: Acute (3) Acute blood loss anemia: Status: Acute (4) SCHULTZ (nonalcoholic steatohepatitis): Status: Acute (5) Obesity (BMI 35.0-39.9 without comorbidity): Status: Acute Plan Assessment: 69-year-old gentleman admitted with acute upper GI bleed with acute blood loss anemia and hemorrhagic shock now status post IR embolization Plan: Neuro: No acute issues. Cardiac: Hemorrhagic shock, resolved, titrated off pressor support. Pulmonary: Remained intubated postprocedure, continue to titrate off ventilatory support as tolerated. Renal: Acute kidney injury secondary to hemorrhagic shock. Non oliguric. Continue to monitor renal indices and urine output. Endo: No acute issues. GI: Acute brisk upper GI bleed. Gastroenterology, General surgery, and Interventional Radiology Services care appreciated. Now status post embolization with cessation of the acute bleeding. Continue PPI. Continue to monitor. ID: No acute issues Heme/Onc: Acute blood loss anemia secondary to upper GI bleed. Status post 11 units of packed red blood cells, 2 platelets, and FFP. Hemoglobin stabilized. Continue to monitor hemoglobin, transfusion threshold of 7. Psych: No acute issues. Miscellaneous: No acute issues. Prophylaxis: Pneumatic compression, ppi Diet: NPO Critical care time spent: 120 minutes excluding separately billable procedures Quality Stroke Does the patient have a stroke diagnosis?: No VTE Prior VTE?: No VTE Risk Level:: Medical - moderate - high VTE Device Contraindication: N/A - Device Ordered VTE Drug Contraindication: Treatment Not Indicated
[2025-01-08 15:47] LABS: Alanine Aminotransferase 8 U/L (0-40); Albumin Level 2.3 g/dL (3.5-5.0); Alkaline Phosphatase 31 U/L (39-117); Anion Gap 10 (12-20); Aspartate Amino Transferase 31 U/L (5-37); Bilirubin Total 0.4 mg/dL (0.0-1.0); Blood Urea Nitrogen 63 mg/dL (9-16); Calcium 6.7 mg/dL (8.4-10.2); Carbon Dioxide 18 mmol/L (22-29); Chloride 118 mmol/L (96-108); Creatinine Clr Calc Pharmacy 77.7; Estimated Glomerular Filt Rate 57; Glucose Random 161 mg/dL (60-115); Potassium 4.9 mmol/L (3.3-5.1); Sodium 141 mmol/L (135-145); Total Protein 3.7 g/dL (6.5-8.0)
--- NOTE | 2025-01-08 16:11 | PM.EVENT ---
Event Note Date of Service: 01/10/25 Event Note: Seen postprocedure in the ICU Had undergone successful embolization of GI bleeder done by IR - branch of right gastric artery(?) Currently remains intubated, on vent support On pressors Appears to have good urine output Abdomen soft Hemoglobin now up to 8.8 Continue current ICU care Follow H&H Family at bedside Time Spent With Patient Time: Total time managing care of this patient today ____ minutes.
[2025-01-08 16:30] LABS: Venous Blood Gas Refer to POC result
--- NOTE | 2025-01-08 18:01 | PC.NURSE ---
Assumed care at 0700. Pt intubated, on pressors and sedation. Pt receiving several blood products. Running total at 0900: 5 unit RBC, 1 unit FFP, 1 unit platelets. In-room EGD at 0900. Pt had episode of lillian bloody emesis during procedure. Plan to take pt to IR. As pt was being prepared for transportation, pt had second much larger episode of bloody emesis; lillian blood and clots. Copious oral suction provided. MD at bedside. Pt taken to IR accompanied by Jaciel victor, IR RN, and anesthesiology MD. Pt tolerated procedure, with three areas embolized. During procedure, levophed titrated to 0.07 in IR by anesthesiology. Pt returned to room accompanied by filing writer, same anesthesiology MD and same IR RN. Family at bedside; updated by MDs and RN. Able to stop vasopressin drip. Totals of blood products received at end of shift: 11 units RBC, 3 units ffp, 4 units platelets. See MAR, TAR, and assessments for further details. Pt repositioned q2hrs as tolerated and able. Bed locked and in lowest position.
[2025-01-08] MEDS: Norepinephrine Bitartrate/D5W 8 MG/250 ML PLAST..BAG 2.17 MG IVCONT (19:42)
[2025-01-08 20:11] LABS: Hematocrit 23.5 % (42.0-52.0); Hemoglobin 8.2 g/dl (14.0-18.0); Mean Corpuscular HGB Conc 34.9 g/dl (31.0-36.0); Mean Corpuscular Hemoglobin 29.6 pg (27.0-33.0); Mean Corpuscular Volume 84.8 fL (80.0-98.0); Mean Platelet Volume 9.2 fL (9.4-12.4); Red Blood Count 2.77 X10*6/uL (4.60-5.80); White Blood Count 15.3 X10*3/uL (4.8-10.8)
[2025-01-08 20:16] LABS: NRBC Pct Auto 1.2 /100WBC (0.0-0.2); Platelet Count 90 X10*3/uL (160-400)
[2025-01-08 20:17] LABS: VBG Base Excess -4.6 mmol/L; VBG HCO3 19 mmol/L (22-26); VBG pCO2 30 mmHg; VBG pO2 57 mmHg
[2025-01-08 20:17] LABS: Venous Blood Gas Refer to POC result
[2025-01-08 20:25] LABS: Anion Gap 9 (12-20); Blood Urea Nitrogen 62 mg/dL (9-16); Calcium 6.9 mg/dL (8.4-10.2); Carbon Dioxide 18 mmol/L (22-29); Chloride 119 mmol/L (96-108); Creatinine Clr Calc Pharmacy 77.7; Estimated Glomerular Filt Rate 57; Glucose Random 143 mg/dL (60-115); Potassium 4.4 mmol/L (3.3-5.1); Sodium 142 mmol/L (135-145)
[2025-01-08] MEDS: Albumin Human 25 % 100 ML IV (21:58)
[2025-01-09] VITALS (43 sets, daily range): BP systolic 103–166; BP diastolic 38–85; PULSE 89–110; RESP 16–37; TEMP 34.7–37.8; O2SAT 91–100; BMI 36.2
[2025-01-09] MEDS: propofoL 1,000 MG/100 ML VIAL 34.7 MG IVCONT ×7 (02:12→22:07)
[2025-01-09] MEDS: Albumin Human 25 % 100 ML IV ×4 (03:19→22:12)
[2025-01-09 04:44] LABS: VBG HCO3 21 mmol/L (22-26); VBG pCO2 35 mmHg; VBG pH 7.38 (7.32-7.43); VBG pO2 52 mmHg
[2025-01-09 05:06] LABS: Basophils Percent Auto 0.2 % (0-2); Eosinophils Absolute Auto 0.1 X10*3/uL (0.0-0.4); Eosinophils Percent Auto 0.7 % (0-4); Imm Gran Abs Auto 0.08 X10*3/uL (0.00-0.03); Imm Gran Pct Auto 0.6 % (0.0-0.4); Lymphocytes Absolute Auto 3.1 X10*3/uL (1.2-4.9); Lymphocytes Percent Auto 23.8 % (20-40); MANUAL DIFF FLAG SCAN; Mean Corpuscular HGB Conc 35.5 g/dl (31.0-36.0); Mean Corpuscular Hemoglobin 30.1 pg (27.0-33.0); Mean Corpuscular Volume 84.9 fL (80.0-98.0); Mean Platelet Volume 9.7 fL (9.4-12.4); Monocytes Absolute Auto 1.7 X10*3/uL (0.1-1.2); Monocytes Percent Auto 13.3 % (2-11); Neutrophils Percent Auto 61.4 % (45-73); Red Blood Count 2.19 X10*6/uL (4.60-5.80); Red Cell Distribution Width 15.7 % (11.0-16.0); SCAN SMEAR FLAG 1
[2025-01-09 05:07] LABS: NRBC Pct Auto 1.6 /100WBC (0.0-0.2); Platelet Count 94 X10*3/uL (160-400)
[2025-01-09 05:10] LABS: Hematocrit 18.6 % (42.0-52.0); Hemoglobin 6.6 g/dl (14.0-18.0)
[2025-01-09 05:21] LABS: Alanine Aminotransferase 7 U/L (0-40); Alkaline Phosphatase 29 U/L (39-117); Anion Gap 10 (12-20); Aspartate Amino Transferase 28 U/L (5-37); Bilirubin Total 0.2 mg/dL (0.0-1.0); Blood Urea Nitrogen 59 mg/dL (9-16); Calcium 7.3 mg/dL (8.4-10.2); Carbon Dioxide 20 mmol/L (22-29); Chloride 119 mmol/L (96-108); Creatinine Clr Calc Pharmacy 82.3; Estimated Glomerular Filt Rate > 60; Glucose Random 125 mg/dL (60-115); Magnesium 1.8 mg/dL (1.6-2.6); Phosphorus 3.4 mg/dL (2.7-4.5); Potassium 4.1 mmol/L (3.3-5.1); Sodium 145 mmol/L (135-145); Total Protein 4.4 g/dL (6.5-8.0)
[2025-01-09 05:44] LABS: SLIDE REVIEW VERIFIED
[2025-01-09] MEDS: Pantoprazole Sodium 40 MG/10 ML VIAL IVPUSH ×2 (05:51→16:23)
--- NOTE | 2025-01-09 06:43 | PC.NURSE ---
Critical Care Nursing Note? Assumed care of the patient at 1900. Patient intubated, on pressors and sedation.? Levophed drip was titrated off and then restarted (see eMar).? One unit of PRBC?s ordered and initiated before the end of shift. Dark melena stool in fecal management system, small amount of blood streaked oral secretions. Family at bedside throughout shift.
[2025-01-09 07:18] LABS: Venous Blood Gas Refer to POC result
[2025-01-09] MEDS: 0.9 % Sodium Chloride Flush 3 ML SYRINGE IVFLUSH ×2 (08:02→15:42)
[2025-01-09] MEDS: Chlorhexidine Gluc Oral Rinse 15 ML MOUTHWASH BUCCAL ×3 (08:02→22:12)
--- NOTE | 2025-01-09 10:07 | PM.PNGS ---
Subjective Subjective Date of Service: 01/09/25 Interval history: Remains on pressors although he appears to have been more hemodynamically stable overnight Remains intubated Significant drop in hemoglobin to 6.6 this morning Physical Exam Vital Signs: Vital Signs: Last Vital Signs Temp 99.1 F 01/09/25 09:00 Pulse 98 01/09/25 09:00 Resp 21 H 01/09/25 09:00 BP 145/69 H 01/09/25 09:00 Pulse Ox 98 01/09/25 09:00 O2 Del Method Mechanical Ventil ation 01/09/25 09:00 FiO2 40 01/09/25 09:00 BMI result Body Mass Index 36.2 Const: Other: On ventilator Resp: Other: On ventilator Cardio: Rate: regular rate GI: Other: Protuberant but soft : Other: Good urine output Objective Data Active Medications Chlorhexidine Gluconate (Chlorhexidine Gluc Oral Rinse 15 Ml Mouthwash) 15 ml BUCCAL TID ZHANG Last Admin: 01/09/25 08:02 Dose: 15 ml Documented By: PRIYANKA Furosemide (Furosemide 20 Mg/2 Ml Vial) 20 mg IVPUSH ONCE ONE; Protocol Stop: 01/09/25 10:07 Propofol (Diprivan) 1,000 mg in 100 mls @ 0 mls/hr IVCONT .Q0M [facility]; Protocol Last Titration: 01/09/25 09:45 Dose: 20 mcg/kg/min, 13.88 mls/hr Documented By: PRIYANKA Norepinephrine Bitartrate (Levophed) 8 mg in 250 mls @ 0 mls/hr IVCONT .Q0M [facility]; Protocol Last Titration: 01/09/25 07:30 Dose: 0 mcg/kg/min, 0 mls/hr Documented By: PRIYANKA Vasopressin (Vasostrict) 20 unit in 100 mls @ 12 mls/hr IVCONT .Q8H20M [facility]; Protocol Last Admin: 01/09/25 05:11 Dose: Not Given Documented By: ILIR Non-Admin Reason: medication paused Albumin Human (Kedbumin 25 %) 100 mls @ 100 mls/hr IV Q6H [facility] Stop: 01/10/25 05:14 Pantoprazole Sodium (Pantoprazole Sodium 40 Mg/10 Ml Vial) 40 mg IVPUSH BID@0630,1630 [facility] Last Admin: 01/09/25 05:51 Dose: 40 mg Documented By: HEENEL Sodium Chloride (0.9 % Sodium Chloride Flush 3 Ml Syringe) 3 ml IVFLUSH QSHIFT [facility] Last Admin: 01/09/25 08:02 Dose: 3 ml Documented By: CTORRZ Labs 01/09/25 04:40 01/09/25 04:40 Labs: Laboratory Results - last 24 hr 01/07/25 01/08/25 01/08/25 02:07 09:34 12:35 POC Hgb (Calc) 7.8 L POC Hct 23 L MCV 89.1 MCH 31.8 MCHC 35.6 RDW 14.4 Plt Count 55 L D MPV 9.9 Immature Gran % (Auto) 0.8 H Neut % (Auto) 70.9 Lymph % (Auto) 18.0 L [place] % (Auto) 10.1 Eos % (Auto) 0.1 Baso % (Auto) 0.1 Lymph # (Auto) 3.2 [place] # (Auto) 1.8 H Eos # (Auto) 0.0 Baso # (Auto) 0.0 Abs Immat Gran (auto) 0.15 H Absolute Neuts (auto) 12.8 H Absolute Nucleated RBC 0.070 H Nucleated RBC % (auto) 0.4 H Smear Tech's Comments VERIFIED POC Std Base Excess -9 L POC O2 Sat (Calc) 80 POC ABG pO2 56 L POC ABG Total CO2 21 L VBG pH VBG pCO2 VBG pO2 VBG HCO3 VBG O2 Saturation VBG Base Excess POC Capillary pH 7.18 L* POC Capillary pCO2 53 H POC Cap HCO3 (Calc) 19 L POC Sodium 142 POC Potassium 4.6 Anion Gap Estim Creat Clear Calc Estimated GFR POC Glucose 175 H Random Glucose Calcium Phosphorus Magnesium Total Bilirubin AST ALT Alkaline Phosphatase Total Protein Albumin Blood Type O Positive Antibody Screen NEGATIVE Crossmatch See Detail 01/08/25 01/08/25 01/08/25 15:13 15:17 20:01 POC Hgb (Calc) POC Hct MCV 86.0 84.8 MCH 30.0 29.6 MCHC 34.9 34.9 RDW 14.9 15.0 Plt Count 42 L 90 L D MPV 10.0 9.2 L Immature Gran % (Auto) 0.6 H Neut % (Auto) 78.2 H Lymph % (Auto) 13.9 L [place] % (Auto) 7.1 Eos % (Auto) 0.0 Baso % (Auto) 0.2 Lymph # (Auto) 1.6 [place] # (Auto) 0.8 Eos # (Auto) 0.0 Baso # (Auto) 0.0 Abs Immat Gran (auto) 0.07 H Absolute Neuts (auto) 9.3 H Absolute Nucleated RBC 0.080 H 0.190 H Nucleated RBC % (auto) 0.7 H 1.2 H Smear Tech's Comments POC Std Base Excess POC O2 Sat (Calc) POC ABG pO2 POC ABG Total CO2 VBG pH 7.32 VBG pCO2 37 VBG pO2 37 VBG HCO3 19 L VBG O2 Saturation 67.0 VBG Base Excess -5.6 POC Capillary pH POC Capillary pCO2 POC Cap HCO3 (Calc) POC Sodium POC Potassium Anion Gap 10 L Estim Creat Clear Calc 77.7 Estimated GFR 57 POC Glucose Random Glucose 161 H Calcium 6.7 L D Phosphorus Magnesium Total Bilirubin 0.4 AST 31 ALT 8 Alkaline Phosphatase 31 L Total Protein 3.7 L Albumin 2.3 L Blood Type Antibody Screen Crossmatch 01/08/25 01/08/25 01/09/25 20:05 20:10 04:40 POC Hgb (Calc) POC Hct MCV 84.9 MCH 30.1 MCHC 35.5 RDW 15.7 Plt Count 94 L MPV 9.7 Immature Gran % (Auto) 0.6 H Neut % (Auto) 61.4 Lymph % (Auto) 23.8 [place] % (Auto) 13.3 H Eos % (Auto) 0.7 Baso % (Auto) 0.2 Lymph # (Auto) 3.1 [place] # (Auto) 1.7 H Eos # (Auto) 0.1 Baso # (Auto) 0.0 Abs Immat Gran (auto) 0.08 H Absolute Neuts (auto) 8.0 Absolute Nucleated RBC 0.210 H Nucleated RBC % (auto) 1.6 H Smear Tech's Comments VERIFIED POC Std Base Excess POC O2 Sat (Calc) POC ABG pO2 POC ABG Total CO2 VBG pH 7.40 VBG pCO2 30 VBG pO2 57 VBG HCO3 19 L VBG O2 Saturation 90.0 VBG Base Excess -4.6 POC Capillary pH POC Capillary pCO2 POC Cap HCO3 (Calc) POC Sodium POC Potassium Anion Gap 9 L 10 L Estim Creat Clear Calc 77.7 82.3 Estimated GFR 57 > 60 POC Glucose Random Glucose 143 H 125 H Calcium 6.9 L 7.3 L Phosphorus 3.4 Magnesium 1.8 Total Bilirubin 0.2 AST 28 ALT 7 Alkaline Phosphatase 29 L Total Protein 4.4 L Albumin 3.0 L Blood Type Antibody Screen Crossmatch 01/09/25 04:41 POC Hgb (Calc) POC Hct MCV MCH MCHC RDW Plt Count MPV Immature Gran % (Auto) Neut % (Auto) Lymph % (Auto) [place] % (Auto) Eos % (Auto) Baso % (Auto) Lymph # (Auto) [place] # (Auto) Eos # (Auto) Baso # (Auto) Abs Immat Gran (auto) Absolute Neuts (auto) Absolute Nucleated RBC Nucleated RBC % (auto) Smear Tech's Comments POC Std Base Excess POC O2 Sat (Calc) POC ABG pO2 POC ABG Total CO2 VBG pH 7.38 VBG pCO2 35 VBG pO2 52 VBG HCO3 21 L VBG O2 Saturation 85.0 VBG Base Excess -3.0 POC Capillary pH POC Capillary pCO2 POC Cap HCO3 (Calc) POC Sodium POC Potassium Anion Gap Estim Creat Clear Calc Estimated GFR POC Glucose Random Glucose Calcium Phosphorus Magnesium Total Bilirubin AST ALT Alkaline Phosphatase Total Protein Albumin Blood Type Antibody Screen Crossmatch Microbiology Microbiology Results: Microbiology 01/07/25 03:20 Blood Culture - Preliminary Blood - Venous No growth after 48 hours. 01/07/25 01:00 Blood Culture - Preliminary Blood - Venous No growth after 48 hours. Procedures Date of Service Date of Service: 01/09/25 Progress Note: A&P Assessment and plan (1) Acute GI bleeding: Status: Acute Assessment and Plan: Status post embolization by IR, of a branch of the right gastric artery yesterday He did have a drop again in his hemoglobin this morning No obvious blood on NG-tube Maroon stools but this may be residual from his previous bleeding He is getting a unit of packed RBC now Continue to monitor H and H Discussed with family - he was being followed by Dr. Sawant for his neuroendocrine tumor Would consider transfer him back to [facility] if he continues to have persistent bleeding He does appear to be more clinically stable since IR embolization CAT scan suggests poor planes between the pancreatic stump and the stomach wall Discussed with ICU staff Time Spent With Patient Time: Total time managing care of this patient today ____ minutes. Quality Stroke Does the patient have a stroke diagnosis?: No VTE Prior VTE?: No VTE Risk Level:: Medical - moderate - high VTE Device Contraindication: N/A - Device Ordered VTE Drug Contraindication: Treatment Not Indicated
[2025-01-09] MEDS: Furosemide 20 MG/2 ML VIAL IVPUSH ×2 (10:19→18:37)
[2025-01-09 10:39] LABS: Basophils Absolute Auto 0.1 X10*3/uL (0.0-0.2); Basophils Percent Auto 0.4 % (0-2); Eosinophils Absolute Auto 0.3 X10*3/uL (0.0-0.4); Eosinophils Percent Auto 1.9 % (0-4); Hemoglobin 7.7 g/dl (14.0-18.0); Imm Gran Abs Auto 0.11 X10*3/uL (0.00-0.03); Imm Gran Pct Auto 0.8 % (0.0-0.4); Lymphocytes Absolute Auto 3.6 X10*3/uL (1.2-4.9); Lymphocytes Percent Auto 25.6 % (20-40); MANUAL DIFF FLAG SCAN; Mean Corpuscular Volume 88.7 fL (80.0-98.0); Mean Platelet Volume 9.3 fL (9.4-12.4); Monocytes Absolute Auto 1.9 X10*3/uL (0.1-1.2); Monocytes Percent Auto 13.2 % (2-11); Neutrophils Absolute Auto 8.3 x10*3/uL (2.0-8.3); Neutrophils Percent Auto 58.1 % (45-73); Red Blood Count 2.48 X10*6/uL (4.60-5.80); Red Cell Distribution Width 17.7 % (11.0-16.0); SCAN SMEAR FLAG 1; White Blood Count 14.2 X10*3/uL (4.8-10.8)
[2025-01-09 10:42] LABS: NRBC Pct Auto 2.3 /100WBC (0.0-0.2); Platelet Count 93 X10*3/uL (160-400)
--- NOTE | 2025-01-09 10:45 | PM.CCPN ---
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 On ER evaluation patient with melena and presyncopal event. Patient had initial EGD on 01/07/2025 that demonstrated large amount of clots with inability to locate the source. Patient was kept intubated at the end of procedure and transferred to the intensive care unit. Overnight 01/07-01/08 patient with development of brisk upper GI bleeding with significant hemodynamic instability requiring pressor support and total of 11 units of packed red blood cells, 4 FFP, and 2 platelets. Patient had repeat upper endoscopy on 01/08/2025 with inability to locate the bleed again. Thereafter, taken for IR embolization with resolution of bleeding at that time. Now monitored in the intensive care unit. Remains intubated. No events overnight. Hemoglobin decreased approximately 1.5 g, may be related to pre equilibration. No overt bleeding noted. Critical Care Time (minutes): 60 Physical Exam Vital Signs: Vital Signs: Last Vital Signs Temp 99.9 F 01/09/25 10:00 Pulse 110 H 01/09/25 10:00 Resp 37 H 01/09/25 10:00 BP 165/68 H 01/09/25 10:00 Pulse Ox 94 01/09/25 10:00 O2 Del Method Mechanical Ventil ation 01/09/25 10:00 FiO2 40 01/09/25 10:00 BMI result Body Mass Index 36.2 Const: General: no acute distress, alert and awake Nutritional Appearance: Edematous Eyes: Sclerae: sclerae normal EOM: EOMs intact bilaterally Neck: Neck: Yes no lymphadenopathy, Yes trachea midline and Yes supple Resp: Effort & Inspection: normal respiratory effort and no respiratory distress Auscultation: clear to auscultation bilaterally Cardio: Rate: tachycardic Rhythm: regular rhythm Heart sounds: no gallops, no murmurs and no rubs GI: Palpation (GI): Soft to palpation and Other GI palpation findings present ( Nontender) Auscultation: normal bowel sounds Extrem: General: No clubbing, No cyanosis and Yes edema (1+ bilateral) Objective Data Labs 01/09/25 10:32 01/09/25 04:40 Labs: Laboratory Results - last 24 hr 01/07/25 01/08/25 01/08/25 02:07 12:35 15:13 WBC 11.8 H RBC 2.93 L D Hgb 8.8 L D POC Hgb (Calc) 7.8 L Hct 25.2 L D POC Hct 23 L MCV 86.0 MCH 30.0 MCHC 34.9 RDW 14.9 Plt Count 42 L MPV 10.0 Immature Gran % (Auto) 0.6 H Neut % (Auto) 78.2 H Lymph % (Auto) 13.9 L [place] % (Auto) 7.1 Eos % (Auto) 0.0 Baso % (Auto) 0.2 Lymph # (Auto) 1.6 [place] # (Auto) 0.8 Eos # (Auto) 0.0 Baso # (Auto) 0.0 Abs Immat Gran (auto) 0.07 H Absolute Neuts (auto) 9.3 H Absolute Nucleated RBC 0.080 H Nucleated RBC % (auto) 0.7 H Smear Tech's Comments POC Std Base Excess -9 L POC O2 Sat (Calc) 80 POC ABG pO2 56 L POC ABG Total CO2 21 L VBG pH VBG pCO2 VBG pO2 VBG HCO3 VBG O2 Saturation VBG Base Excess POC Capillary pH 7.18 L* POC Capillary pCO2 53 H POC Cap HCO3 (Calc) 19 L POC Sodium 142 Sodium 141 POC Potassium 4.6 Potassium 4.9 Chloride 118 H Carbon Dioxide 18 L Anion Gap 10 L BUN 63 H Creatinine 1.25 Estim Creat Clear Calc 77.7 Estimated GFR 57 POC Glucose 175 H Random Glucose 161 H Calcium 6.7 L D Phosphorus Magnesium Total Bilirubin 0.4 AST 31 ALT 8 Alkaline Phosphatase 31 L Total Protein 3.7 L Albumin 2.3 L Blood Type O Positive Antibody Screen NEGATIVE Crossmatch See Detail 01/08/25 01/08/25 01/08/25 15:17 20:01 20:05 WBC 15.3 H RBC 2.77 L Hgb 8.2 L POC Hgb (Calc) Hct 23.5 L POC Hct MCV 84.8 MCH 29.6 MCHC 34.9 RDW 15.0 Plt Count 90 L D MPV 9.2 L Immature Gran % (Auto) Neut % (Auto) Lymph % (Auto) [place] % (Auto) Eos % (Auto) Baso % (Auto) Lymph # (Auto) [place] # (Auto) Eos # (Auto) Baso # (Auto) Abs Immat Gran (auto) Absolute Neuts (auto) Absolute Nucleated RBC 0.190 H Nucleated RBC % (auto) 1.2 H Smear Tech's Comments POC Std Base Excess POC O2 Sat (Calc) POC ABG pO2 POC ABG Total CO2 VBG pH 7.32 VBG pCO2 37 VBG pO2 37 VBG HCO3 19 L VBG O2 Saturation 67.0 VBG Base Excess -5.6 POC Capillary pH POC Capillary pCO2 POC Cap HCO3 (Calc) POC Sodium Sodium 142 POC Potassium Potassium 4.4 Chloride 119 H Carbon Dioxide 18 L Anion Gap 9 L BUN 62 H Creatinine 1.25 Estim Creat Clear Calc 77.7 Estimated GFR 57 POC Glucose Random Glucose 143 H Calcium 6.9 L Phosphorus Magnesium Total Bilirubin AST ALT Alkaline Phosphatase Total Protein Albumin Blood Type Antibody Screen Crossmatch 01/08/25 01/09/25 01/09/25 20:10 04:40 04:41 WBC 13.0 H RBC 2.19 L D Hgb 6.6 L* POC Hgb (Calc) Hct 18.6 L* D POC Hct MCV 84.9 MCH 30.1 MCHC 35.5 RDW 15.7 Plt Count 94 L MPV 9.7 Immature Gran % (Auto) 0.6 H Neut % (Auto) 61.4 Lymph % (Auto) 23.8 [place] % (Auto) 13.3 H Eos % (Auto) 0.7 Baso % (Auto) 0.2 Lymph # (Auto) 3.1 [place] # (Auto) 1.7 H Eos # (Auto) 0.1 Baso # (Auto) 0.0 Abs Immat Gran (auto) 0.08 H Absolute Neuts (auto) 8.0 Absolute Nucleated RBC 0.210 H Nucleated RBC % (auto) 1.6 H Smear Tech's Comments VERIFIED POC Std Base Excess POC O2 Sat (Calc) POC ABG pO2 POC ABG Total CO2 VBG pH 7.40 7.38 VBG pCO2 30 35 VBG pO2 57 52 VBG HCO3 19 L 21 L VBG O2 Saturation 90.0 85.0 VBG Base Excess -4.6 -3.0 POC Capillary pH POC Capillary pCO2 POC Cap HCO3 (Calc) POC Sodium Sodium 145 POC Potassium Potassium 4.1 Chloride 119 H Carbon Dioxide 20 L Anion Gap 10 L BUN 59 H Creatinine 1.18 Estim Creat Clear Calc 82.3 Estimated GFR > 60 POC Glucose Random Glucose 125 H Calcium 7.3 L Phosphorus 3.4 Magnesium 1.8 Total Bilirubin 0.2 AST 28 ALT 7 Alkaline Phosphatase 29 L Total Protein 4.4 L Albumin 3.0 L Blood Type Antibody Screen Crossmatch 01/09/25 10:32 WBC 14.2 H RBC 2.48 L Hgb 7.7 L POC Hgb (Calc) Hct 22.0 L POC Hct MCV 88.7 MCH 31.0 MCHC 35.0 RDW 17.7 H Plt Count 93 L MPV 9.3 L Immature Gran % (Auto) Neut % (Auto) Lymph % (Auto) [place] % (Auto) Eos % (Auto) Baso % (Auto) Lymph # (Auto) [place] # (Auto) Eos # (Auto) Baso # (Auto) Abs Immat Gran (auto) Absolute Neuts (auto) Absolute Nucleated RBC Nucleated RBC % (auto) Smear Tech's Comments POC Std Base Excess POC O2 Sat (Calc) POC ABG pO2 POC ABG Total CO2 VBG pH VBG pCO2 VBG pO2 VBG HCO3 VBG O2 Saturation VBG Base Excess POC Capillary pH POC Capillary pCO2 POC Cap HCO3 (Calc) POC Sodium Sodium POC Potassium Potassium Chloride Carbon Dioxide Anion Gap BUN Creatinine Estim Creat Clear Calc Estimated GFR POC Glucose Random Glucose Calcium Phosphorus Magnesium Total Bilirubin AST ALT Alkaline Phosphatase Total Protein Albumin Blood Type Antibody Screen Crossmatch Microbiology Microbiology Results: Microbiology 01/07/25 03:20 Blood - Venous Blood Culture - Preliminary No growth after 48 hours. 01/07/25 01:00 Blood - Venous Blood Culture - Preliminary No growth after 48 hours. Progress Note: A&P Assessment and plan (1) Acute upper GI bleed: Status: Acute (2) Acute blood loss anemia: Status: Acute (3) Hx of splenectomy: Status: Acute (4) History of pancreatectomy: Status: Acute Plan Assessment: 69-year-old gentleman admitted with acute upper GI bleed with acute blood loss anemia and hemorrhagic shock now status post IR embolization Plan: Neuro: No acute issues. Cardiac: Hemorrhagic shock, resolved, titrated off pressor support. Pulmonary: Remained intubated postprocedure, continue to titrate off ventilatory support as tolerated. Renal: Acute kidney injury secondary to hemorrhagic shock, improving. Non oliguric. Continue to monitor renal indices and urine output. Endo: No acute issues. GI: Acute brisk upper GI bleed. Gastroenterology, General surgery, and Interventional Radiology Services care appreciated. Now status post embolization with cessation of the acute bleeding. Continue PPI. Continue to monitor. ID: No acute issues Heme/Onc: Acute blood loss anemia secondary to upper GI bleed. Status post 11 units of packed red blood cells, 2 platelets, and FFP. Hemoglobin dropped 1.5 g overnight. Now with appropriate response to additional 1 unit of packed red blood cells. Continue to monitor hemoglobin, transfusion threshold of 7. Psych: No acute issues. Miscellaneous: No acute issues. Prophylaxis: Pneumatic compression, ppi Diet: NPO Critical care time spent: 60 minutes Quality Stroke Does the patient have a stroke diagnosis?: No VTE Prior VTE?: No VTE Risk Level:: Medical - moderate - high VTE Device Contraindication: N/A - Device Ordered VTE Drug Contraindication: Treatment Not Indicated
[2025-01-09] MEDS: propofoL 1,000 MG/100 ML VIAL 13.88 MG IVCONT (11:01)
--- NOTE | 2025-01-09 12:32 | HO.POSTANES ---
Post Anesthesia Evaluation Post Anesthesia Evaluation Date of Service: 01/09/25 Vital Signs: Vital Signs Temp Pulse Resp BP Pulse Ox O2 Del Method FiO2 01/09/25 11:11 30 01/09/25 11:00 99.7 F 99 31 H 166/73 H 93 Mechanical Ventilation 40 01/09/25 10:00 99.9 F 110 H 37 H 165/68 H 94 Mechanical Ventilation 40 01/09/25 09:00 99.1 F 98 21 H 145/69 H 98 Mechanical Ventilation 40 01/09/25 08:36 99 F 92 19 148/71 H 01/09/25 08:00 100 40 01/09/25 08:00 98.8 F 91 22 H 151/70 H 100 Mechanical Ventilation 40 01/09/25 07:54 40 01/09/25 07:30 90 122/55 L 01/09/25 07:00 99 F 91 16 119/56 L 91 L Mechanical Ventilation 40 01/09/25 06:47 99.1 F 89 31 H 124/60 01/09/25 06:31 99.1 F 94 17 121/54 L 01/09/25 06:00 99.3 F 99 19 134/60 97 Mechanical Ventilation 40 01/09/25 05:00 99.1 F 102 H 18 121/54 L 96 Mechanical Ventilation 40 01/09/25 04:18 40 01/09/25 04:17 102 H 113/52 L 01/09/25 04:12 94 40 01/09/25 03:54 99.7 F 105 H 20 115/53 L 93 Mechanical Ventilation 40 01/09/25 03:00 99.9 F 104 H 20 130/63 95 Mechanical Ventilation 40 01/09/25 01:58 100.0 F 106 H 19 138/63 99 Mechanical Ventilation 40 01/09/25 00:57 99.7 F 103 H 20 131/60 99 Mechanical Ventilation 40 Anesthesia: General Endotracheal-GETA Mental Status: Sedated (still intubated) Pain Control: Satisfactory Nausea/Vomiting: None Hydration: Adequate Anesthesia-Related Issues: No Anes. Related Issues
[2025-01-09 13:42] LABS: Glucose, Whole Blood 101 mg/dL (60-115)
--- NOTE | 2025-01-09 15:41 | PM.EVENT ---
Event Note Date of Service: 01/09/25 Event Note: Seems to more stable vital sign No further overt bleeding from the NG-tube Was transfused earlier Follow up H and H area this afternoon Good urine output Hemodynamically more stable Family at bedside Time Spent With Patient Time: Total time managing care of this patient today ____ minutes.
[2025-01-09] MEDS: fentaNYL citrate/NS 1,000 MCG/100 ML PLAST..BAG 2.5 MCG IVCONT (16:23)
[2025-01-09 18:17] LABS: Glucose, Whole Blood 100 mg/dL (60-115)
[2025-01-09 18:23] LABS: MANUAL DIFF FLAG NO
[2025-01-09 18:25] LABS: Basophils Percent Auto 0.3 % (0-2); Eosinophils Absolute Auto 0.3 X10*3/uL (0.0-0.4); Eosinophils Percent Auto 2.9 % (0-4); Imm Gran Abs Auto 0.05 X10*3/uL (0.00-0.03); Imm Gran Pct Auto 0.4 % (0.0-0.4); Lymphocytes Absolute Auto 2.4 X10*3/uL (1.2-4.9); Lymphocytes Percent Auto 21.1 % (20-40); Mean Corpuscular Hemoglobin 30.5 pg (27.0-33.0); Mean Corpuscular Volume 89.7 fL (80.0-98.0); Mean Platelet Volume 9.7 fL (9.4-12.4); Monocytes Absolute Auto 1.3 X10*3/uL (0.1-1.2); Neutrophils Absolute Auto 7.4 x10*3/uL (2.0-8.3); Neutrophils Percent Auto 64.3 % (45-73); Red Blood Count 2.13 X10*6/uL (4.60-5.80); Red Cell Distribution Width 17.8 % (11.0-16.0); White Blood Count 11.6 X10*3/uL (4.8-10.8)
[2025-01-09 18:26] LABS: NRBC Pct Auto 2.2 /100WBC (0.0-0.2); Platelet Count 96 X10*3/uL (160-400)
[2025-01-09 18:30] LABS: Hematocrit 19.1 % (42.0-52.0); Hemoglobin 6.5 g/dl (14.0-18.0)
--- NOTE | 2025-01-09 20:07 | PC.NURSE ---
Assumed care @ 0700? Neuro Sedated, on propofol and fetanyl per OCT. + cough, grimaces with oral care, opens eyes occasionally, does not follow commands, ?FREEDMAN weakly. (passive ROM performed)? Resp: PSV trial for approx 5 hours, now back on resting setting. Ronchurous BL lungs sounds Cardiac: SR, Levophed gtt paused per OCT, MAP goal >65. 20mg? laxis IVP given x2 per OCT GI: LBM 01/09, Maroon color liquid stools, +bowel sounds, FMD in place. NPO, POC Q6hr. : Fuentes in place, patent /draining. Lines: TLC R. IJ, A-line R. Fem,? peripheral IV Approx . @ 1340 ET tube noted to be at 18cm @ the lip ?Dr. Avelar made aware. ET tube advanced? 6cm by RT. Placement confirmed with an Xray.
[2025-01-10] VITALS (38 sets, daily range): BP systolic 106–164; BP diastolic 46–92; PULSE 68–117; RESP 15–21; TEMP 34.8–37.6; O2SAT 93–100
[2025-01-10] MEDS: 0.9 % Sodium Chloride Flush 3 ML SYRINGE IVFLUSH ×4 (00:07→23:18)
[2025-01-10] MEDS: propofoL 1,000 MG/100 ML VIAL 34.7 MG IVCONT ×9 (00:51→23:18)
[2025-01-10] MEDS: Albumin Human 25 % 100 ML IV (03:44)
[2025-01-10 05:32] LABS: VBG Base Excess 3.8 mmol/L; VBG HCO3 28 mmol/L (22-26); VBG pCO2 43 mmHg; VBG pH 7.41 (7.32-7.43); VBG pO2 46 mmHg
[2025-01-10 05:35] LABS: MANUAL DIFF FLAG NO
[2025-01-10 05:37] LABS: Basophils Percent Auto 0.4 % (0-2); Eosinophils Absolute Auto 0.5 X10*3/uL (0.0-0.4); Imm Gran Abs Auto 0.04 X10*3/uL (0.00-0.03); Imm Gran Pct Auto 0.4 % (0.0-0.4); Lymphocytes Absolute Auto 2.3 X10*3/uL (1.2-4.9); Lymphocytes Percent Auto 21.5 % (20-40); Mean Corpuscular HGB Conc 33.2 g/dl (31.0-36.0); Mean Corpuscular Hemoglobin 30.1 pg (27.0-33.0); Mean Corpuscular Volume 90.8 fL (80.0-98.0); Mean Platelet Volume 9.2 fL (9.4-12.4); Monocytes Absolute Auto 1.1 X10*3/uL (0.1-1.2); Monocytes Percent Auto 10.4 % (2-11); Neutrophils Absolute Auto 6.5 x10*3/uL (2.0-8.3); Neutrophils Percent Auto 62.3 % (45-73); Red Blood Count 2.29 X10*6/uL (4.60-5.80); Red Cell Distribution Width 17.3 % (11.0-16.0); White Blood Count 10.5 X10*3/uL (4.8-10.8)
[2025-01-10 05:53] LABS: Alanine Aminotransferase 8 U/L (0-40); Alkaline Phosphatase 32 U/L (39-117); Anion Gap 10 (12-20); Aspartate Amino Transferase 30 U/L (5-37); Bilirubin Total 0.3 mg/dL (0.0-1.0); Blood Urea Nitrogen 32 mg/dL (9-16); Calcium 8.1 mg/dL (8.4-10.2); Carbon Dioxide 25 mmol/L (22-29); Chloride 118 mmol/L (96-108); Creatinine Clr Calc Pharmacy 131.8; Estimated Glomerular Filt Rate > 60; Glucose Random 100 mg/dL (60-115); Magnesium 2.2 mg/dL (1.6-2.6); Potassium 3.9 mmol/L (3.3-5.1); Sodium 149 mmol/L (135-145); Total Protein 5.5 g/dL (6.5-8.0)
[2025-01-10 06:01] LABS: Hematocrit 20.8 % (42.0-52.0); Hemoglobin 6.9 g/dl (14.0-18.0); NRBC Pct Auto 1.8 /100WBC (0.0-0.2); Platelet Count 92 X10*3/uL (160-400)
[2025-01-10 06:04] LABS: Venous Blood Gas Refer to POC result
[2025-01-10] MEDS: Pantoprazole Sodium 40 MG/10 ML VIAL IVPUSH (06:13)
[2025-01-10] MEDS: fentaNYL citrate/NS 1,000 MCG/100 ML PLAST..BAG 5 MCG IVCONT (07:23)
--- NOTE | 2025-01-10 07:46 | PC.NURSE ---
Critical Care Nursing Note? Assumed care of the patient at 1900. Patient intubated, on sedation.? One unit of PRBC?s ordered and infused.? Dark melena stool in fecal management system.
[2025-01-10] MEDS: Potassium Phosphate/NS 15 MMOL/250 ML PLAST..BAG 62.5 MMOL IV ×2 (08:27→13:16)
[2025-01-10] MEDS: Chlorhexidine Gluc Oral Rinse 15 ML MOUTHWASH BUCCAL ×3 (08:27→19:25)
--- NOTE | 2025-01-10 09:14 | PM.PNGS ---
Subjective Subjective Date of Service: 01/11/25 Interval history: No events overnight Remains on ventilator Had a drop in her hemoglobin last night from 7.7 to 6.5 No overt hematemesis Patient actually does not have an NGT Physical Exam Vital Signs: Vital Signs: Last Vital Signs Temp 98.8 F 01/10/25 09:06 Pulse 84 01/10/25 09:06 Resp 16 01/10/25 09:06 BP 136/64 01/10/25 09:06 Pulse Ox 97 01/10/25 08:00 O2 Del Method Mechanical Ventil ation 01/10/25 07:00 FiO2 30 01/10/25 08:36 BMI result Body Mass Index 36.2 Const: Other: Sedated, on the ventilator Resp: Other: Intubated Cardio: Rate: regular rate GI: Inspection: No distended Palpation (GI): Soft to palpation, not firm and no guarding Objective Data Active Medications Chlorhexidine Gluconate (Chlorhexidine Gluc Oral Rinse 15 Ml Mouthwash) 15 ml BUCCAL TID ZHANG Last Admin: 01/10/25 08:27 Dose: 15 ml Documented By: PRIYANKA Propofol (Diprivan) 1,000 mg in 100 mls @ 0 mls/hr IVCONT .Q0M ZHANG; Protocol Last Admin: 01/10/25 06:45 Dose: 50 mcg/kg/min, 34.7 mls/hr Documented By: ILIR Norepinephrine Bitartrate (Levophed) 8 mg in 250 mls @ 0 mls/hr IVCONT .Q0M ZHANG; Protocol Last Titration: 01/09/25 07:30 Dose: 0 mcg/kg/min, 0 mls/hr Documented By: PRIYANKA Vasopressin (Vasostrict) 20 unit in 100 mls @ 12 mls/hr IVCONT .Q8H20M ZHANG; Protocol Last Admin: 01/10/25 06:14 Dose: Not Given Documented By: ILIR Non-Admin Reason: currently not running Fentanyl (Sublimaze/Ns) 1,000 mcg in 100 mls @ 0 mls/hr IVCONT .Q0M ZHANG; Protocol Last Admin: 01/10/25 07:23 Dose: 50 mcg/hr, 5 mls/hr Documented By: PRIYANKA Potassium Phosphate (Kphos) 15 mmol in 250 mls @ 62.5 mls/hr IV Q4H [facility] Stop: 01/10/25 15:59 Last Admin: 01/10/25 08:27 Dose: 62.5 mls/hr Documented By: PRIYANKA Naloxone HCl (Naloxone Hcl 0.4 Mg/Ml Vial) 0.2 mg IVPUSH Q2M PRN PRN Reason: Excessive sedation or RR < 8 Sodium Chloride (0.9 % Sodium Chloride Flush 3 Ml Syringe) 3 ml IVFLUSH QSHIFT [facility] Last Admin: 01/10/25 08:27 Dose: 3 ml Documented By: PRIYANKA Labs 01/11/25 05:22 01/11/25 05:22 Labs: Laboratory Results - last 24 hr 01/07/25 01/09/25 01/09/25 02:07 10:32 13:37 MCV 88.7 MCH 31.0 MCHC 35.0 RDW 17.7 H Plt Count 93 L MPV 9.3 L Immature Gran % (Auto) 0.8 H Neut % (Auto) 58.1 Lymph % (Auto) 25.6 [place] % (Auto) 13.2 H Eos % (Auto) 1.9 Baso % (Auto) 0.4 Lymph # (Auto) 3.6 [place] # (Auto) 1.9 H Eos # (Auto) 0.3 Baso # (Auto) 0.1 Abs Immat Gran (auto) 0.11 H Absolute Neuts (auto) 8.3 Absolute Nucleated RBC 0.320 H Nucleated RBC % (auto) 2.3 H VBG pH VBG pCO2 VBG pO2 VBG HCO3 VBG O2 Saturation VBG Base Excess Anion Gap Estim Creat Clear Calc Estimated GFR POC Glucose 101 Random Glucose Calcium Phosphorus Magnesium Total Bilirubin AST ALT Alkaline Phosphatase Total Protein Albumin Blood Type O Positive Antibody Screen NEGATIVE Crossmatch See Detail 01/09/25 01/09/25 01/10/25 18:11 18:13 05:22 MCV 89.7 90.8 MCH 30.5 30.1 MCHC 34.0 33.2 RDW 17.8 H 17.3 H Plt Count 96 L 92 L MPV 9.7 9.2 L Immature Gran % (Auto) 0.4 0.4 Neut % (Auto) 64.3 62.3 Lymph % (Auto) 21.1 21.5 [place] % (Auto) 11.0 10.4 Eos % (Auto) 2.9 5.0 H Baso % (Auto) 0.3 0.4 Lymph # (Auto) 2.4 2.3 [place] # (Auto) 1.3 H 1.1 Eos # (Auto) 0.3 0.5 H Baso # (Auto) 0.0 0.0 Abs Immat Gran (auto) 0.05 H 0.04 H Absolute Neuts (auto) 7.4 6.5 Absolute Nucleated RBC 0.250 H 0.190 H Nucleated RBC % (auto) 2.2 H 1.8 H VBG pH VBG pCO2 VBG pO2 VBG HCO3 VBG O2 Saturation VBG Base Excess Anion Gap 10 L Estim Creat Clear Calc 131.8 Estimated GFR > 60 POC Glucose 100 Random Glucose 100 Calcium 8.1 L D Phosphorus 2.0 L Magnesium 2.2 Total Bilirubin 0.3 AST 30 ALT 8 Alkaline Phosphatase 32 L Total Protein 5.5 L Albumin 4.0 Blood Type Antibody Screen Crossmatch 01/10/25 01/10/25 05:29 06:18 MCV MCH MCHC RDW Plt Count MPV Immature Gran % (Auto) Neut % (Auto) Lymph % (Auto) [place] % (Auto) Eos % (Auto) Baso % (Auto) Lymph # (Auto) [place] # (Auto) Eos # (Auto) Baso # (Auto) Abs Immat Gran (auto) Absolute Neuts (auto) Absolute Nucleated RBC Nucleated RBC % (auto) VBG pH 7.41 VBG pCO2 43 VBG pO2 46 VBG HCO3 28 H VBG O2 Saturation 77.0 VBG Base Excess 3.8 Anion Gap Estim Creat Clear Calc Estimated GFR POC Glucose Random Glucose Calcium Phosphorus Magnesium Total Bilirubin AST ALT Alkaline Phosphatase Total Protein Albumin Blood Type O Positive Antibody Screen NEGATIVE Crossmatch See Detail Microbiology Microbiology Results: Microbiology 01/07/25 03:20 Blood Culture - Preliminary Blood - Venous No growth after 48 hours. Procedures Date of Service Date of Service: 01/11/25 Progress Note: A&P Assessment and plan (1) Acute GI bleeding: Status: Acute Assessment and Plan: Status post embolization by IR Still with some drifting of his hemoglobin although this seems to be much slower No NG-tube in place - consider NG tube/OG placement to monitor for persistent bleeding Monitor H&H Much more hemodynamically stable ICU care Hold off on any anticoagulation/heparin products for now Time Spent With Patient Time: Total time managing care of this patient today ____ minutes. Quality Stroke Does the patient have a stroke diagnosis?: No VTE Prior VTE?: No VTE Risk Level:: Medical - moderate - high VTE Device Contraindication: N/A - Device Ordered VTE Drug Contraindication: Treatment Not Indicated
--- NOTE | 2025-01-10 11:09 | P.PNCC_ITS ---
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 On ER evaluation patient with melena and presyncopal event. Patient had initial EGD on 01/07/2025 that demonstrated large amount of clots with inability to locate the source. Patient was kept intubated at the end of procedure and transferred to the intensive care unit. Overnight 01/07-01/08 patient with development of brisk upper GI bleeding with significant hemodynamic instability requiring pressor support and total of 11 units of packed red blood cells, 4 FFP, and 2 platelets. Patient had repeat upper endoscopy on 01/08/2025 with inability to locate the bleed again. Thereafter, taken for IR embolization with resolution of bleeding at that time. Now monitored in the intensive care unit. Remains intubated. No events overnight. No overt bleeding noted but with downward drift in hemoglobin, now requiring additional 2 units of packed red blood cells. Critical Care Time (minutes): 60 Physical Exam 2 Vital Signs: Vital Signs: Last Vital Signs Temp 99.1 F 01/10/25 10:00 Pulse 84 01/10/25 10:00 Resp 20 01/10/25 10:00 BP 136/63 01/10/25 10:00 Pulse Ox 99 01/10/25 10:00 O2 Del Method Mechanical Ventil ation 01/10/25 10:00 FiO2 30 01/10/25 10:00 BMI result Body Mass Index 36.2 Const: General: no acute distress and other (Sedated on ventilatory support) Eyes: Sclerae: sclerae normal EOM: EOMs intact bilaterally Neck: Neck: Yes no lymphadenopathy, Yes trachea midline and Yes supple Resp: Auscultation: clear to auscultation bilaterally Cardio: Rate: regular rate Rhythm: regular rhythm Heart sounds: no gallops, no murmurs and no rubs GI: Palpation (GI): Soft to palpation and Other GI palpation findings present ( Nontender) Auscultation: normal bowel sounds Extrem: General: Yes no pedal edema, No clubbing and No cyanosis Objective Data Labs 01/10/25 05:22 01/10/25 05:22 Labs: Laboratory Results - last 24 hr 01/07/25 01/09/25 01/09/25 02:07 13:37 18:11 WBC 11.6 H RBC 2.13 L Hgb 6.5 L* Hct 19.1 L* MCV 89.7 MCH 30.5 MCHC 34.0 RDW 17.8 H Plt Count 96 L MPV 9.7 Immature Gran % (Auto) 0.4 Neut % (Auto) 64.3 Lymph % (Auto) 21.1 [place] % (Auto) 11.0 Eos % (Auto) 2.9 Baso % (Auto) 0.3 Lymph # (Auto) 2.4 [place] # (Auto) 1.3 H Eos # (Auto) 0.3 Baso # (Auto) 0.0 Abs Immat Gran (auto) 0.05 H Absolute Neuts (auto) 7.4 Absolute Nucleated RBC 0.250 H Nucleated RBC % (auto) 2.2 H VBG pH VBG pCO2 VBG pO2 VBG HCO3 VBG O2 Saturation VBG Base Excess Sodium Potassium Chloride Carbon Dioxide Anion Gap BUN Creatinine Estim Creat Clear Calc Estimated GFR POC Glucose 101 Random Glucose Calcium Phosphorus Magnesium Total Bilirubin AST ALT Alkaline Phosphatase Total Protein Albumin Blood Type O Positive Antibody Screen NEGATIVE Crossmatch See Detail 01/09/25 01/10/25 01/10/25 18:13 05:22 05:29 WBC 10.5 RBC 2.29 L Hgb 6.9 L* Hct 20.8 L* MCV 90.8 MCH 30.1 MCHC 33.2 RDW 17.3 H Plt Count 92 L MPV 9.2 L Immature Gran % (Auto) 0.4 Neut % (Auto) 62.3 Lymph % (Auto) 21.5 [place] % (Auto) 10.4 Eos % (Auto) 5.0 H Baso % (Auto) 0.4 Lymph # (Auto) 2.3 [place] # (Auto) 1.1 Eos # (Auto) 0.5 H Baso # (Auto) 0.0 Abs Immat Gran (auto) 0.04 H Absolute Neuts (auto) 6.5 Absolute Nucleated RBC 0.190 H Nucleated RBC % (auto) 1.8 H VBG pH 7.41 VBG pCO2 43 VBG pO2 46 VBG HCO3 28 H VBG O2 Saturation 77.0 VBG Base Excess 3.8 Sodium 149 H Potassium 3.9 Chloride 118 H Carbon Dioxide 25 Anion Gap 10 L BUN 32 H Creatinine 0.71 Estim Creat Clear Calc 131.8 Estimated GFR > 60 POC Glucose 100 Random Glucose 100 Calcium 8.1 L D Phosphorus 2.0 L Magnesium 2.2 Total Bilirubin 0.3 AST 30 ALT 8 Alkaline Phosphatase 32 L Total Protein 5.5 L Albumin 4.0 Blood Type Antibody Screen Crossmatch 01/10/25 06:18 WBC RBC Hgb Hct MCV MCH MCHC RDW Plt Count MPV Immature Gran % (Auto) Neut % (Auto) Lymph % (Auto) [place] % (Auto) Eos % (Auto) Baso % (Auto) Lymph # (Auto) [place] # (Auto) Eos # (Auto) Baso # (Auto) Abs Immat Gran (auto) Absolute Neuts (auto) Absolute Nucleated RBC Nucleated RBC % (auto) VBG pH VBG pCO2 VBG pO2 VBG HCO3 VBG O2 Saturation VBG Base Excess Sodium Potassium Chloride Carbon Dioxide Anion Gap BUN Creatinine Estim Creat Clear Calc Estimated GFR POC Glucose Random Glucose Calcium Phosphorus Magnesium Total Bilirubin AST ALT Alkaline Phosphatase Total Protein Albumin Blood Type O Positive Antibody Screen NEGATIVE Crossmatch See Detail Microbiology Microbiology Results: Microbiology 01/07/25 03:20 Blood - Venous Blood Culture - Preliminary No growth after 48 hours. 01/07/25 01:00 Blood - Venous Blood Culture - Preliminary No growth after 48 hours. Progress Note: A&P Assessment and plan (1) Acute upper GI bleed: Status: Acute (2) Acute blood loss anemia: Status: Acute (3) SCHULTZ (nonalcoholic steatohepatitis): Status: Acute (4) History of pancreatectomy: Status: Acute (5) Hx of splenectomy: Status: Acute Plan Assessment: 69-year-old gentleman admitted with acute upper GI bleed with acute blood loss anemia and hemorrhagic shock now status post IR embolization Plan: Neuro: No acute issues. Cardiac: Hemorrhagic shock, resolved, titrated off pressor support. Pulmonary: Remained intubated postprocedure, continue to titrate off ventilatory support as tolerated. Renal: Acute kidney injury secondary to hemorrhagic shock, improving. Non oliguric. Continue to monitor renal indices and urine output. Endo: No acute issues. GI: Upper GI bleed. Gastroenterology, General surgery, and Interventional Radiology Services care appreciated. Now status post embolization with cessation of the acute bleeding. Continue PPI. Continue to monitor. Appears to have ongoing oozing will obtain CT angio abdomen ID: No acute issues Heme/Onc: Acute blood loss anemia secondary to upper GI bleed. Status post 14 units of packed red blood cells, 2 platelets, and FFP. Appears to have ongoing oozing, [facility] results of CT angio abdomen may consider additional embolization of further surgical evaluation. Continue to monitor hemoglobin, transfusion threshold of 7. Psych: No acute issues. Miscellaneous: No acute issues. Prophylaxis: Pneumatic compression, ppi Diet: NPO Critical care time spent: 60 minutes Quality Stroke Does the patient have a stroke diagnosis?: No VTE Prior VTE?: No VTE Risk Level:: Medical - moderate - high VTE Device Contraindication: N/A - Device Ordered VTE Drug Contraindication: Treatment Not Indicated
[2025-01-10 12:15] LABS: Glucose, Whole Blood 93 mg/dL (60-115)
[2025-01-10] MEDS: iohexoL 350 MG/ML 100 ML INFUS..BTL IV (12:59)
[2025-01-10] MEDS: fentaNYL citrate/NS 1,000 MCG/100 ML PLAST..BAG 7.5 MCG IVCONT (13:14)
--- NOTE | 2025-01-10 14:21 | PM.EVENT ---
Event Note Date of Service: 01/10/25 Event Note: Hemodynamically seems to be more stable Remained on the ventilator Abdominal exam remains benign Follow up CAT angio done in view of drop in hemoglobin - no active bleeding suggested Continue ICU care Family at bedside Time Spent With Patient Time: Total time managing care of this patient today ____ minutes.
[2025-01-10 14:35] LABS: MANUAL DIFF FLAG NO
[2025-01-10 14:37] LABS: Basophils Percent Auto 0.3 % (0-2); Eosinophils Absolute Auto 0.5 X10*3/uL (0.0-0.4); Eosinophils Percent Auto 4.9 % (0-4); Hematocrit 22.9 % (42.0-52.0); Imm Gran Abs Auto 0.04 X10*3/uL (0.00-0.03); Imm Gran Pct Auto 0.4 % (0.0-0.4); Lymphocytes Absolute Auto 1.6 X10*3/uL (1.2-4.9); Lymphocytes Percent Auto 16.1 % (20-40); Mean Corpuscular HGB Conc 34.9 g/dl (31.0-36.0); Mean Corpuscular Hemoglobin 31.9 pg (27.0-33.0); Mean Corpuscular Volume 91.2 fL (80.0-98.0); Mean Platelet Volume 9.3 fL (9.4-12.4); Monocytes Absolute Auto 1.2 X10*3/uL (0.1-1.2); Monocytes Percent Auto 11.5 % (2-11); Neutrophils Absolute Auto 6.8 x10*3/uL (2.0-8.3); Neutrophils Percent Auto 66.8 % (45-73); Platelet Count 104 X10*3/uL (160-400); Red Blood Count 2.51 X10*6/uL (4.60-5.80); White Blood Count 10.1 X10*3/uL (4.8-10.8)
[2025-01-10 14:41] LABS: NRBC Pct Auto 2.1 /100WBC (0.0-0.2)
[2025-01-10 17:25] LABS: Glucose, Whole Blood 89 mg/dL (60-115)
[2025-01-10] MEDS: fentaNYL citrate/NS 1,000 MCG/100 ML PLAST..BAG 10 MCG IVCONT (19:24)
--- NOTE | 2025-01-10 20:11 | PC.NURSE ---
Assumed care @ 0700? Neuro Sedated, on propofol and fetanyl per MAR.+ cough, grimaces with oral care, does not opens eyes, does not follow commands, Flaccid extremities. (passive ROM performed)? Res: Vent support,? Ronchurous BL lungs sounds Cardiac: SR,? GI: LBM 01/10, Maroon color liquid stools, +bowel sounds, FMD in place. NPO, POC Q6hr. : Fuentes in placed, patent /draining. Lines: TLC R. IJ, A-line R. Fem,? peripheral IV ?1 unit RBC tranfused per TAR
[2025-01-10 21:06] LABS: Hematocrit 23.2 % (42.0-52.0); Hemoglobin 7.8 g/dl (14.0-18.0); Mean Corpuscular HGB Conc 33.6 g/dl (31.0-36.0); Mean Corpuscular Hemoglobin 30.6 pg (27.0-33.0); Mean Platelet Volume 9.4 fL (9.4-12.4); Platelet Count 116 X10*3/uL (160-400); Red Blood Count 2.55 X10*6/uL (4.60-5.80); Red Cell Distribution Width 17.2 % (11.0-16.0); White Blood Count 10.4 X10*3/uL (4.8-10.8)
[2025-01-10 21:08] LABS: NRBC Pct Auto 1.8 /100WBC (0.0-0.2)
[2025-01-11] VITALS (57 sets, daily range): BP systolic 105–200; BP diastolic 50–91; PULSE 61–119; RESP 16–30; TEMP 34.6–38; O2SAT 90–100; BMI 37.6
[2025-01-11] MEDS: Pantoprazole Sodium 40 MG/10 ML VIAL IVPUSH ×3 (01:51→15:41)
[2025-01-11] MEDS: propofoL 1,000 MG/100 ML VIAL 34.7 MG IVCONT ×3 (01:58→06:58)
[2025-01-11] MEDS: fentaNYL citrate/NS 1,000 MCG/100 ML PLAST..BAG 10 MCG IVCONT (04:42)
[2025-01-11 05:27] LABS: Glucose, Whole Blood 77 mg/dL (60-115)
[2025-01-11 05:36] LABS: VBG HCO3 27 mmol/L (22-26); VBG pCO2 44 mmHg; VBG pH 7.39 (7.32-7.43); VBG pO2 46 mmHg
[2025-01-11 05:41] LABS: Venous Blood Gas Refer to POC result
[2025-01-11 06:09] LABS: Basophils Percent Auto 0.3 % (0-2); Eosinophils Absolute Auto 0.6 X10*3/uL (0.0-0.4); Eosinophils Percent Auto 6.6 % (0-4); Hematocrit 23.8 % (42.0-52.0); Hemoglobin 7.9 g/dl (14.0-18.0); Imm Gran Abs Auto 0.03 X10*3/uL (0.00-0.03); Imm Gran Pct Auto 0.3 % (0.0-0.4); MANUAL DIFF FLAG NO; Mean Corpuscular HGB Conc 33.2 g/dl (31.0-36.0); Mean Corpuscular Hemoglobin 30.6 pg (27.0-33.0); Mean Corpuscular Volume 92.2 fL (80.0-98.0); Mean Platelet Volume 9.3 fL (9.4-12.4); Monocytes Absolute Auto 1.1 X10*3/uL (0.1-1.2); Monocytes Percent Auto 11.3 % (2-11); Neutrophils Absolute Auto 5.8 x10*3/uL (2.0-8.3); Neutrophils Percent Auto 60.5 % (45-73); Platelet Count 124 X10*3/uL (160-400); Red Blood Count 2.58 X10*6/uL (4.60-5.80); Red Cell Distribution Width 17.6 % (11.0-16.0); White Blood Count 9.6 X10*3/uL (4.8-10.8)
[2025-01-11 06:13] LABS: NRBC Pct Auto 2.1 /100WBC (0.0-0.2)
[2025-01-11 06:46] LABS: Alanine Aminotransferase 8 U/L (0-40); Albumin Level 3.7 g/dL (3.5-5.0); Alkaline Phosphatase 53 U/L (39-117); Anion Gap 10 (12-20); Aspartate Amino Transferase 35 U/L (5-37); Bilirubin Total 0.3 mg/dL (0.0-1.0); Blood Urea Nitrogen 22 mg/dL (9-16); Calcium 8.2 mg/dL (8.4-10.2); Carbon Dioxide 24 mmol/L (22-29); Chloride 117 mmol/L (96-108); Creatinine Clr Calc Pharmacy 136.5; Estimated Glomerular Filt Rate > 60; Glucose Random 83 mg/dL (60-115); Magnesium 2.4 mg/dL (1.6-2.6); Phosphorus 2.5 mg/dL (2.7-4.5); Potassium 3.7 mmol/L (3.3-5.1); Sodium 147 mmol/L (135-145); Total Protein 5.6 g/dL (6.5-8.0)
[2025-01-11] MEDS: 0.9 % Sodium Chloride Flush 3 ML SYRINGE IVFLUSH ×3 (06:58→23:13)
[2025-01-11] MEDS: Potassium Phosphate/NS 15 MMOL/250 ML PLAST..BAG 62.5 MMOL IV (07:22)
[2025-01-11] MEDS: Chlorhexidine Gluc Oral Rinse 15 ML MOUTHWASH BUCCAL ×2 (07:22→14:10)
--- NOTE | 2025-01-11 08:06 | PM.PNGS ---
Subjective Subjective Date of Service: 01/11/25 <Xochitl Hernandez PA-C - Last Filed: 01/11/25 08:11> 01/11/25 <Carlos Navas MD - Last Filed: 01/11/25 15:13> Interval history: Remains intubated, sedated. <DENVER Dwyer Last Filed: 01/11/25 08:11> Physical Exam Vital Signs: Vital Signs: Last Vital Signs Temp 98.2 F 01/11/25 07:00 Pulse 62 01/11/25 07:00 Resp 18 01/11/25 07:00 BP 105/50 L 01/11/25 07:00 Pulse Ox 100 01/11/25 07:48 O2 Del Method Mechanical Ventil ation 01/11/25 07:00 FiO2 30 01/11/25 07:48 BMI result Body Mass Index 37.6 <Xochitl Hernandez PA-C - Last Filed: 01/11/25 08:11> Resp: Other: on vent <Xochitl Hernandez PA-C - Last Filed: 01/11/25 08:11> GI: Other: rectal tube with large amount of clots in bag <Xochitl Hernandez PA-C - Last Filed: 01/11/25 08:11> Inspection: No distended <DENVER Dwyer Last Filed: 01/11/25 08:11> Palpation (GI): Soft to palpation <DENVER Dwyer Last Filed: 01/11/25 08:11> Objective Data Active Medications Chlorhexidine Gluconate (Chlorhexidine Gluc Oral Rinse 15 Ml Mouthwash) 15 ml BUCCAL TID ZHANG Last Admin: 01/11/25 07:22 Dose: 15 ml Documented By: CHELSI Propofol (Diprivan) 1,000 mg in 100 mls @ 0 mls/hr IVCONT .Q0M ZHANG; Protocol Last Admin: 01/11/25 06:58 Dose: 50 mcg/kg/min, 34.7 mls/hr Documented By: CHELSI Norepinephrine Bitartrate (Levophed) 8 mg in 250 mls @ 0 mls/hr IVCONT .Q0M ZHANG; Protocol Last Titration: 01/09/25 07:30 Dose: Infused Documented By: PRIYANKA Vasopressin (Vasostrict) 20 unit in 100 mls @ 12 mls/hr IVCONT .Q8H20M [facility]; Protocol Last Admin: 01/11/25 06:44 Dose: Not Given Documented By: CHELSI Non-Admin Reason: pt off med Fentanyl (Sublimaze/Ns) 1,000 mcg in 100 mls @ 0 mls/hr IVCONT .Q0M [facility]; Protocol Last Admin: 01/11/25 04:42 Dose: 100 mcg/hr, 10 mls/hr Documented By: ARON Potassium Phosphate (Kphos) 15 mmol in 250 mls @ 62.5 mls/hr IV ONCE ONE Stop: 01/11/25 11:59 Last Admin: 01/11/25 07:22 Dose: 62.5 mls/hr Documented By: CHELSI Naloxone HCl (Naloxone Hcl 0.4 Mg/Ml Vial) 0.2 mg IVPUSH Q2M PRN PRN Reason: Excessive sedation or RR < 8 Pantoprazole Sodium (Pantoprazole Sodium 40 Mg/10 Ml Vial) 40 mg IVPUSH BID@0630,1630 [facility] Last Admin: 01/11/25 05:44 Dose: 40 mg Documented By: ARON Sodium Chloride (0.9 % Sodium Chloride Flush 3 Ml Syringe) 3 ml IVFLUSH QSHIFT [facility] Last Admin: 01/11/25 06:58 Dose: 3 ml Documented By: CHELSI <Xochitl Hernandez PA-C - Last Filed: 01/11/25 08:11> Labs CBC & Chem 7: 01/11/25 05:22 01/11/25 05:22 <Xochitl Hernandez PA-C - Last Filed: 01/11/25 08:11> Labs: Laboratory Results - last 24 hr 01/07/25 01/10/25 01/10/25 02:07 06:18 11:44 MCV MCH MCHC RDW Plt Count MPV Immature Gran % (Auto) Neut % (Auto) Lymph % (Auto) [place] % (Auto) Eos % (Auto) Baso % (Auto) Lymph # (Auto) [place] # (Auto) Eos # (Auto) Baso # (Auto) Abs Immat Gran (auto) Absolute Neuts (auto) Absolute Nucleated RBC Nucleated RBC % (auto) VBG pH VBG pCO2 VBG pO2 VBG HCO3 VBG O2 Saturation VBG Base Excess Anion Gap Estim Creat Clear Calc Estimated GFR POC Glucose 93 Random Glucose Calcium Phosphorus Magnesium Total Bilirubin AST ALT Alkaline Phosphatase Total Protein Albumin Blood Type O Positive Antibody Screen NEGATIVE Crossmatch See Detail See Detail 01/10/25 01/10/25 01/10/25 14:26 17:19 20:45 MCV 91.2 91.0 MCH 31.9 30.6 MCHC 34.9 33.6 RDW 17.0 H 17.2 H Plt Count 104 L 116 L MPV 9.3 L 9.4 Immature Gran % (Auto) 0.4 Neut % (Auto) 66.8 Lymph % (Auto) 16.1 L [place] % (Auto) 11.5 H Eos % (Auto) 4.9 H Baso % (Auto) 0.3 Lymph # (Auto) 1.6 [place] # (Auto) 1.2 Eos # (Auto) 0.5 H Baso # (Auto) 0.0 Abs Immat Gran (auto) 0.04 H Absolute Neuts (auto) 6.8 Absolute Nucleated RBC 0.210 H 0.190 H Nucleated RBC % (auto) 2.1 H 1.8 H VBG pH VBG pCO2 VBG pO2 VBG HCO3 VBG O2 Saturation VBG Base Excess Anion Gap Estim Creat Clear Calc Estimated GFR POC Glucose 89 Random Glucose Calcium Phosphorus Magnesium Total Bilirubin AST ALT Alkaline Phosphatase Total Protein Albumin Blood Type Antibody Screen Crossmatch 01/11/25 01/11/25 01/11/25 05:22 05:23 05:32 MCV 92.2 MCH 30.6 MCHC 33.2 RDW 17.6 H Plt Count 124 L MPV 9.3 L Immature Gran % (Auto) 0.3 Neut % (Auto) 60.5 Lymph % (Auto) 21.0 [place] % (Auto) 11.3 H Eos % (Auto) 6.6 H Baso % (Auto) 0.3 Lymph # (Auto) 2.0 [place] # (Auto) 1.1 Eos # (Auto) 0.6 H Baso # (Auto) 0.0 Abs Immat Gran (auto) 0.03 Absolute Neuts (auto) 5.8 Absolute Nucleated RBC 0.200 H Nucleated RBC % (auto) 2.1 H VBG pH 7.39 VBG pCO2 44 VBG pO2 46 VBG HCO3 27 H VBG O2 Saturation 72.0 VBG Base Excess 2.0 Anion Gap 10 L Estim Creat Clear Calc 136.5 Estimated GFR > 60 POC Glucose 77 Random Glucose 83 Calcium 8.2 L Phosphorus 2.5 L Magnesium 2.4 Total Bilirubin 0.3 AST 35 ALT 8 Alkaline Phosphatase 53 Total Protein 5.6 L Albumin 3.7 Blood Type Antibody Screen Crossmatch <Xochitl Hernandez PA-C - Last Filed: 01/11/25 08:11> Procedures Date of Service Date of Service: 01/11/25 <Xochitl Hernandez PA-C - Last Filed: 01/11/25 08:11> 01/11/25 <Carlos Navas MD - Last Filed: 01/11/25 15:13> Progress Note: A&P Assessment and plan (1) Acute GI bleeding: Status: Acute <Xochitl Hernandez PA-C - Last Filed: 01/11/25 08:11> Assessment and Plan: Acute UGI bleed, status post EGD and then embolization by IR. CTA yesterday for slight drift in H/H showed no active gastrointestinal hemorrhage. H/H stable this morning, continue to monitor. Clots in rectal bag likely old Hemodynamically stable, good UOP Further care as per ICU team Continue to hold off on any anticoagulation/heparin products for now. <Xochitl Hernandez PA-C - Last Filed: 01/11/25 08:11> Time Spent With Patient Time: Total time managing care of this patient today ____ minutes. <Xochitl Hernandez PA-C - Last Filed: 01/11/25 08:11> Quality Stroke Does the patient have a stroke diagnosis?: No <Xochitl Hernandez PA-C - Last Filed: 01/11/25 08:11> VTE Prior VTE?: No <DENVER Dwyer Last Filed: 01/11/25 08:11> VTE Risk Level:: Medical - moderate - high <Xochitl Hernandez PA-C - Last Filed: 01/11/25 08:11> VTE Device Contraindication: N/A - Device Ordered <Xochitl Hernandez PA-C - Last Filed: 01/11/25 08:11> VTE Drug Contraindication: Treatment Not Indicated <Xochitl Hernandez PA-C - Last Filed: 01/11/25 08:11>
--- NOTE | 2025-01-11 08:55 | P.PNCC_ITS ---
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 On ER evaluation patient with melena and presyncopal event. Patient had initial EGD on 01/07/2025 that demonstrated large amount of clots with inability to locate the source. Patient was kept intubated at the end of procedure and transferred to the intensive care unit. Overnight 01/07-01/08 patient with development of brisk upper GI bleeding with significant hemodynamic instability requiring pressor support and total of 14 units of packed red blood cells, 4 FFP, and 2 platelets. Patient had repeat upper endoscopy on 01/08/2025 with inability to locate the bleed again. Thereafter, taken for IR embolization with resolution of bleeding at that time. Now monitored in the intensive care unit. Remains intubated. No events overnight. Hemoglobin remained stable. Critical Care Time (minutes): 60 Physical Exam 2 Vital Signs: Vital Signs: Last Vital Signs Temp 98.4 F 01/11/25 08:00 Pulse 67 01/11/25 08:00 Resp 18 01/11/25 08:00 BP 136/61 01/11/25 08:00 Pulse Ox 98 01/11/25 08:00 O2 Del Method Mechanical Ventil ation 01/11/25 08:00 FiO2 30 01/11/25 08:12 BMI result Body Mass Index 37.6 Const: General: no acute distress and other (Sedated on ventilatory support) Eyes: Sclerae: sclerae normal EOM: EOMs intact bilaterally Neck: Neck: Yes no lymphadenopathy, Yes trachea midline and Yes supple Resp: Auscultation: clear to auscultation bilaterally Cardio: Rate: regular rate Rhythm: regular rhythm Heart sounds: no gallops, no murmurs and no rubs GI: Palpation (GI): Soft to palpation and Other GI palpation findings present ( Nontender) Auscultation: normal bowel sounds Extrem: General: Yes no pedal edema, No clubbing and No cyanosis Objective Data Labs 01/11/25 05:22 01/11/25 05:22 Labs: Laboratory Results - last 24 hr 01/09/25 01/10/25 01/10/25 04:40 06:18 11:44 WBC RBC Hgb Hct MCV MCH MCHC RDW Plt Count MPV Immature Gran % (Auto) Neut % (Auto) Lymph % (Auto) [place] % (Auto) Eos % (Auto) Baso % (Auto) Lymph # (Auto) [place] # (Auto) Eos # (Auto) Baso # (Auto) Abs Immat Gran (auto) Absolute Neuts (auto) Absolute Nucleated RBC Nucleated RBC % (auto) Smear Path Review SEE NOTE VBG pH VBG pCO2 VBG pO2 VBG HCO3 VBG O2 Saturation VBG Base Excess Sodium Potassium Chloride Carbon Dioxide Anion Gap BUN Creatinine Estim Creat Clear Calc Estimated GFR POC Glucose 93 Random Glucose Calcium Phosphorus Magnesium Total Bilirubin AST ALT Alkaline Phosphatase Total Protein Albumin Crossmatch See Detail 01/10/25 01/10/25 01/10/25 14:26 17:19 20:45 WBC 10.1 10.4 RBC 2.51 L 2.55 L Hgb 8.0 L 7.8 L Hct 22.9 L 23.2 L MCV 91.2 91.0 MCH 31.9 30.6 MCHC 34.9 33.6 RDW 17.0 H 17.2 H Plt Count 104 L 116 L MPV 9.3 L 9.4 Immature Gran % (Auto) 0.4 Neut % (Auto) 66.8 Lymph % (Auto) 16.1 L [place] % (Auto) 11.5 H Eos % (Auto) 4.9 H Baso % (Auto) 0.3 Lymph # (Auto) 1.6 [place] # (Auto) 1.2 Eos # (Auto) 0.5 H Baso # (Auto) 0.0 Abs Immat Gran (auto) 0.04 H Absolute Neuts (auto) 6.8 Absolute Nucleated RBC 0.210 H 0.190 H Nucleated RBC % (auto) 2.1 H 1.8 H Smear Path Review VBG pH VBG pCO2 VBG pO2 VBG HCO3 VBG O2 Saturation VBG Base Excess Sodium Potassium Chloride Carbon Dioxide Anion Gap BUN Creatinine Estim Creat Clear Calc Estimated GFR POC Glucose 89 Random Glucose Calcium Phosphorus Magnesium Total Bilirubin AST ALT Alkaline Phosphatase Total Protein Albumin Crossmatch 01/11/25 01/11/25 01/11/25 05:22 05:23 05:32 WBC 9.6 RBC 2.58 L Hgb 7.9 L Hct 23.8 L MCV 92.2 MCH 30.6 MCHC 33.2 RDW 17.6 H Plt Count 124 L MPV 9.3 L Immature Gran % (Auto) 0.3 Neut % (Auto) 60.5 Lymph % (Auto) 21.0 [place] % (Auto) 11.3 H Eos % (Auto) 6.6 H Baso % (Auto) 0.3 Lymph # (Auto) 2.0 [place] # (Auto) 1.1 Eos # (Auto) 0.6 H Baso # (Auto) 0.0 Abs Immat Gran (auto) 0.03 Absolute Neuts (auto) 5.8 Absolute Nucleated RBC 0.200 H Nucleated RBC % (auto) 2.1 H Smear Path Review VBG pH 7.39 VBG pCO2 44 VBG pO2 46 VBG HCO3 27 H VBG O2 Saturation 72.0 VBG Base Excess 2.0 Sodium 147 H Potassium 3.7 Chloride 117 H Carbon Dioxide 24 Anion Gap 10 L BUN 22 H Creatinine 0.70 Estim Creat Clear Calc 136.5 Estimated GFR > 60 POC Glucose 77 Random Glucose 83 Calcium 8.2 L Phosphorus 2.5 L Magnesium 2.4 Total Bilirubin 0.3 AST 35 ALT 8 Alkaline Phosphatase 53 Total Protein 5.6 L Albumin 3.7 Crossmatch Microbiology Microbiology Results: Microbiology 01/07/25 03:20 Blood - Venous Blood Culture - Preliminary No growth after 48 hours. 01/07/25 01:00 Blood - Venous Blood Culture - Preliminary No growth after 48 hours. Progress Note: A&P Assessment and plan (1) Acute upper GI bleed: Status: Acute (2) History of pancreatectomy: Status: Acute (3) Hx of splenectomy: Status: Acute (4) Acute blood loss anemia: Status: Acute Plan Assessment: 69-year-old gentleman admitted with acute upper GI bleed with acute blood loss anemia and hemorrhagic shock now status post IR embolization Plan: Neuro: No acute issues. Cardiac: Hemorrhagic shock, resolved, titrated off pressor support. Pulmonary: Remained intubated postprocedure, continue to titrate off ventilatory support as tolerated. Renal: Acute kidney injury secondary to hemorrhagic shock, resolved. Non oliguric. Continue to monitor renal indices and urine output. Endo: No acute issues. GI: Upper GI bleed. Gastroenterology, General surgery, and Interventional Radiology Services care appreciated. Now status post embolization with cessation of the acute bleeding. Continue PPI. Continue to monitor. CT angio abdomen on 01/10/2025 with no bleed identified. ID: No acute issues Heme/Onc: Acute blood loss anemia secondary to upper GI bleed. Status post 14 units of packed red blood cells, 2 platelets, and FFP. Hemoglobin stable overnight. Continue to monitor hemoglobin, transfusion threshold of 7. Psych: No acute issues. Miscellaneous: No acute issues. Prophylaxis: Pneumatic compression, ppi Diet: NPO Critical care time spent: 60 minutes Quality Stroke Does the patient have a stroke diagnosis?: No VTE Prior VTE?: No VTE Risk Level:: Medical - moderate - high VTE Device Contraindication: N/A - Device Ordered VTE Drug Contraindication: Treatment Not Indicated
[2025-01-11] MEDS: Furosemide 20 MG/2 ML VIAL IVPUSH (09:18)
[2025-01-11] MEDS: hydrALAZINE HCl 20 MG/ML VIAL 10 MG IVPUSH (09:48)
[2025-01-11] MEDS: niCARdipine HCL 25 MG in 0.9 % Sodium Chloride 240 ML 50 MG IVCONT (10:18)
--- NOTE | 2025-01-11 10:31 | MHC.CLN ---
F/U PT IS DAY 4 NPO R/T GIB DISCUSSED AT ROUNDS WITH MD PLAN TO EXTUBATE TODAY IF ALTERNATIVE NUTRITION NEEDED; PLEASE CONSULT RD FOLLOWING FOR DIET ADVANCEMENT
[2025-01-11] MEDS: fentaNYL citrate/PF 100 MCG/2 ML VIAL 50 MCG IVPUSH (10:34)
[2025-01-11] MEDS: Metoprolol Tartrate 5 MG/5 ML VIAL IVPUSH (11:03)
[2025-01-11] MEDS: dexmedeTOMIDine HCL/NS 400 MCG/100 ML PLAST..BAG 47.21 MCG IVCONT (11:04)
--- NOTE | 2025-01-11 11:18 | PM.GIPN ---
Subjective Subjective Date of Service: 01/11/25 Interval History: Seen at bedside. Had drop in H/H over the weekend but CTA negative. Now H/H stable. Last PRBC transfusion was 01/10 AM. Critical Care Time (minutes): 0 Physical Exam Vital Signs: Vital Signs: Last Vital Signs Temp 98.4 F 01/11/25 08:00 Pulse 107 H 01/11/25 11:00 Resp 25 H 01/11/25 11:00 BP 139/67 01/11/25 11:00 Pulse Ox 90 L 01/11/25 11:06 O2 Del Method Mechanical Ventil ation 01/11/25 11:00 FiO2 30 01/11/25 11:06 BMI result Body Mass Index 37.6 Recently extubated family at bedside opening eyes to verbal cues but not following commands wincing to palpation of suprapubic region rectal tube with melena Objective Data Labs 01/12/25 04:26 01/12/25 04:26 Labs: Laboratory Results - last 24 hr 01/09/25 01/10/25 01/10/25 04:40 06:18 11:44 WBC RBC Hgb Hct MCV MCH MCHC RDW Plt Count MPV Immature Gran % (Auto) Neut % (Auto) Lymph % (Auto) [place] % (Auto) Eos % (Auto) Baso % (Auto) Lymph # (Auto) [place] # (Auto) Eos # (Auto) Baso # (Auto) Abs Immat Gran (auto) Absolute Neuts (auto) Absolute Nucleated RBC Nucleated RBC % (auto) Smear Path Review SEE NOTE VBG pH VBG pCO2 VBG pO2 VBG HCO3 VBG O2 Saturation VBG Base Excess Sodium Potassium Chloride Carbon Dioxide Anion Gap BUN Creatinine Estim Creat Clear Calc Estimated GFR POC Glucose 93 Random Glucose Calcium Phosphorus Magnesium Total Bilirubin AST ALT Alkaline Phosphatase Total Protein Albumin Crossmatch See Detail 01/10/25 01/10/25 01/10/25 14:26 17:19 20:45 WBC 10.1 10.4 RBC 2.51 L 2.55 L Hgb 8.0 L 7.8 L Hct 22.9 L 23.2 L MCV 91.2 91.0 MCH 31.9 30.6 MCHC 34.9 33.6 RDW 17.0 H 17.2 H Plt Count 104 L 116 L MPV 9.3 L 9.4 Immature Gran % (Auto) 0.4 Neut % (Auto) 66.8 Lymph % (Auto) 16.1 L [place] % (Auto) 11.5 H Eos % (Auto) 4.9 H Baso % (Auto) 0.3 Lymph # (Auto) 1.6 [place] # (Auto) 1.2 Eos # (Auto) 0.5 H Baso # (Auto) 0.0 Abs Immat Gran (auto) 0.04 H Absolute Neuts (auto) 6.8 Absolute Nucleated RBC 0.210 H 0.190 H Nucleated RBC % (auto) 2.1 H 1.8 H Smear Path Review VBG pH VBG pCO2 VBG pO2 VBG HCO3 VBG O2 Saturation VBG Base Excess Sodium Potassium Chloride Carbon Dioxide Anion Gap BUN Creatinine Estim Creat Clear Calc Estimated GFR POC Glucose 89 Random Glucose Calcium Phosphorus Magnesium Total Bilirubin AST ALT Alkaline Phosphatase Total Protein Albumin Crossmatch 01/11/25 01/11/25 01/11/25 05:22 05:23 05:32 WBC 9.6 RBC 2.58 L Hgb 7.9 L Hct 23.8 L MCV 92.2 MCH 30.6 MCHC 33.2 RDW 17.6 H Plt Count 124 L MPV 9.3 L Immature Gran % (Auto) 0.3 Neut % (Auto) 60.5 Lymph % (Auto) 21.0 [place] % (Auto) 11.3 H Eos % (Auto) 6.6 H Baso % (Auto) 0.3 Lymph # (Auto) 2.0 [place] # (Auto) 1.1 Eos # (Auto) 0.6 H Baso # (Auto) 0.0 Abs Immat Gran (auto) 0.03 Absolute Neuts (auto) 5.8 Absolute Nucleated RBC 0.200 H Nucleated RBC % (auto) 2.1 H Smear Path Review VBG pH 7.39 VBG pCO2 44 VBG pO2 46 VBG HCO3 27 H VBG O2 Saturation 72.0 VBG Base Excess 2.0 Sodium 147 H Potassium 3.7 Chloride 117 H Carbon Dioxide 24 Anion Gap 10 L BUN 22 H Creatinine 0.70 Estim Creat Clear Calc 136.5 Estimated GFR > 60 POC Glucose 77 Random Glucose 83 Calcium 8.2 L Phosphorus 2.5 L Magnesium 2.4 Total Bilirubin 0.3 AST 35 ALT 8 Alkaline Phosphatase 53 Total Protein 5.6 L Albumin 3.7 Crossmatch Microbiology Microbiology Results: Microbiology 01/07/25 03:20 Blood - Venous Blood Culture - Preliminary No growth after 48 hours. 01/07/25 01:00 Blood - Venous Blood Culture - Preliminary No growth after 48 hours. Procedures Date of Service Date of Service: 01/11/25 Progress Note: A&P Assessment and plan (1) Abnormal CT of the abdomen: Status: Acute (2) Acute blood loss anemia: Status: Acute (3) Acute GI bleeding: Status: Acute (4) Syncope: Status: Acute Plan s/p EGD x 2 without visualization of culprit bleeder 2/2 clot burden despite administering reglan pre procedure. s/p IR embolization 01/08 of left gastric and the terminus of the right gastroepiploic (this was adjacent to a clip placed prev at [facility] in 2023). Now stable. Pt was extubated shortly before bedside assessment. Plan: - Cont NPO until safe from swallowing standpoint - ok for parenteral nutrition in the meantime. - Recheck CBC today - Abd discomfort likely 2/2 urinary retention - per daughter at bedside, has known BPH - consider urology assessment for coude catheter - Should remain on IV ppi till 01/12 and then switch to PO Time Spent With Patient Time: Total time managing care of this patient today ____ minutes. Quality Stroke Does the patient have a stroke diagnosis?: No VTE Prior VTE?: No VTE Risk Level:: Medical - moderate - high VTE Device Contraindication: N/A - Device Ordered VTE Drug Contraindication: Treatment Not Indicated
[2025-01-11 11:28] LABS: Glucose, Whole Blood 131 mg/dL (60-115)
[2025-01-11] MEDS: niCARdipine HCL 25 MG in 0.9 % Sodium Chloride 240 ML 75 MG IVCONT (14:10)
--- NOTE | 2025-01-11 15:12 | PC.NURSE ---
Addendum entered by Cassidy ySlvester RN 01/11/25 18:34: Pt unable to void w/ external male catheter - BS completed reading 980cc - SC attempted w/o success - bloody output noted to SC - MD notified - Uro consulted - 16fr huitron cath placed by uro for urinary retention - proscar ordered. Original Note: [id number] - Mary to right fem removed by this RN - guilherme per MD. Mary noticed to be longer than usual - MD called to bedside - ?cordis line per MD. Direct pressure applied to site with small bleeding to 2x2 noted and subsided - occlusive dressing applied - C/D/I. Hard palpable area noted to site - MD at bedside. Pt to remain <30 degrees, continue to monitor site for bleeding, 1800 CBC PER md. Dressing continues to be C/D/I.
[2025-01-11] MEDS: Esmolol HCl/NaCl Iso 2,500 MG/250 ML IV.SOLN 37.77 MG IVCONT ×2 (15:41→21:34)
--- NOTE | 2025-01-11 15:45 | MHC.CM.PN ---
Pt continues care in ICU: intubated: plan for the day is to attempt sedation d/c and extubate. Pt from home alone, family to transport: unknown if he will need more services - pt may benefit from a PT eval once able to participate. CM to follow.
[2025-01-11] MEDS: niCARdipine HCL 25 MG in 0.9 % Sodium Chloride 240 ML 150 MG IVCONT ×2 (16:19→17:54)
--- NOTE | 2025-01-11 16:42 | P.CNUR_ITS ---
History of Present Illness Consult details Consult date: 01/11/25 Narrative: CC: Urinary retention/nursing unable to place Fuentes catheter HPI: Admission to ICU with upper GI bleed. Prior straight catheterization. Asked to place Fuentes catheter as unable to straight catheterization currently. Nursing staff have tried to place Fuentes multiple times Fuentes catheter placed by urologic staff member. Good efflux of urine. See nursing note for description of total output. Output 1300 cc. Fuentes catheter should remain for 4 weeks before voiding trial. Initiate finasteride. On discharge from ICU blue catheter cap should be placed. Cap [place] a [place] [id number]. Patient should be taught how to cycle bladder during the day and empty every 4-6 hours while using a drainage bag overnight. Difficult Fuentes Placement CPT 07943 Review of Systems 2 Constitutional: Constitutional: Reports as per HPI and Reports no additional constitutional complaints Cardiovascular: Cardiovascular: Reports as per HPI and Reports no additional cardiovascular complaints Respiratory: Respiratory: Reports as per HPI and Reports no additional respiratory complaints Gastrointestinal: Gastrointestinal: Reports as per HPI and Reports no additional gastrointestinal complaints Genitourinary: Genitourinary: Reports as per HPI Musculoskeletal: Musculoskeletal: Reports no additional musculoskeletal complaints and Reports as per HPI Neurologic: Reports system reviewed and no additional complaints, except as documented and Reports as per HPI [facility] Past Medical History Medical History (Updated 01/11/25 @ 16:46 by Flash Duckworth MD) BPH (benign prostatic hyperplasia) Hypertension Upper GI bleed SCHULTZ (nonalcoholic steatohepatitis) Erectile dysfunction Chronic hepatitis C virus genotype 1a infection Surgical History Surgical History (Updated 01/09/25 @ 10:47 by Vishal Avelar MD) History of pancreatectomy Hx of splenectomy Social History Social History Household Members: Unknown / Unable to assess Housing: Unknown / Unable to assess Are you a primary health care liaison to a significant other at home: No Comment: bilateral wrist restraints for airway safety Patient Tobacco Use Status: Never used Tobacco service: Yes Meds Allergies Allergy/AdvReac Type Severity Reaction Status Date / Time No Known Allergies Allergy Verified 01/06/25 23:09 Active Medications: Current Medications Chlorhexidine Gluconate (Chlorhexidine Gluc Oral Rinse 15 Ml Mouthwash) 15 ml BUCCAL TID [facility] Last Admin: 01/11/25 14:10 Dose: 15 ml Nicardipine HCl 25 mg/ Sodium (Chloride) 250 mls @ 0 mls/hr IVCONT .Q0M ZHANG; Protocol Last Admin: 01/11/25 16:19 Dose: 15 mg/hr, 150 mls/hr Esmolol HCl (Brevibloc/Nacl) 2,500 mg in 250 mls @ 0 mls/hr IVCONT .Q0M ZHANG; Protocol Last Admin: 01/11/25 15:41 Dose: 50 mcg/kg/min, 37.77 mls/hr Pantoprazole Sodium (Pantoprazole Sodium 40 Mg/10 Ml Vial) 40 mg IVPUSH BID@0630,1630 [facility] Last Admin: 01/11/25 15:41 Dose: 40 mg Sodium Chloride (0.9 % Sodium Chloride Flush 3 Ml Syringe) 3 ml IVFLUSH QSHIFT [facility] Last Admin: 01/11/25 14:10 Dose: 3 ml Home Medications ?Medication ?Instructions ?Recorded ?Confirmed ?Last Taken ?Type aspirin 81 mg tablet,delayed 81 mg PO DAILY 04/24/21 01/07/25 Unknown History release brinzolamide 1 %-brimonidine 0.2 % 1 drp ophthalmic (eye) BID 01/07/25 01/07/25 Unknown History eye drops,suspension (Simbrinza) capsaicin 0.1 % topical cream 1 appl topical BID 01/07/25 01/07/25 Unknown History ferrous gluconate 324 mg (38 mg 324 mg PO Q48H 01/07/25 01/07/25 Unknown History iron) tablet hydroxyzine HCl 25 mg tablet 25 mg PO BEDTIME PRN Insomnia 01/07/25 01/07/25 Unknown History lisinopril 10 mg tablet 10 mg PO DAILY 01/07/25 01/07/25 Unknown History mineral oil-hydrophil petrolat 1 appl topical BID 01/07/25 01/07/25 Unknown History topical ointment tadalafil 20 mg tablet 20 mg PO DAILY 01/07/25 01/07/25 Unknown History Physical Exam 2 Vital Signs: Vital Signs: Last Vital Signs Temp 98.4 F 01/11/25 16:16 Pulse 91 01/11/25 16:19 Resp 23 H 01/11/25 16:16 BP 144/72 H 01/11/25 16:19 Pulse Ox 93 01/11/25 16:16 O2 Del Method Nasal Cannula 01/11/25 16:16 O2 Flow Rate 5 01/11/25 16:16 FiO2 30 01/11/25 15:00 BMI result Body Mass Index 37.6 Const: General: cooperative, healthy appearing, comfortable and no acute distress Orientation/consciousness: patient oriented x3 HEENT: Face and sinus: Yes normal facial exam Mouth: moist mucous membranes Neck: Neck: Yes normal visual inspection, Yes full ROM and Yes trachea midline Chest: Chest palpation & inspection: normal inspection of the chest Resp: Effort & Inspection: normal respiratory effort, able to speak in complete sentences and no respiratory distress GI: Inspection: Yes normal to inspection Back/Spine/Pelvis: Cervical Spine: normal cervical lordosis Thoracic/Lumbar Spine: thoracic and lumbar spine normal to inspection Skin: General skin exam: no rashes or lesions noted Neuro: General: patient oriented x3, tone normal and moves all extremities Extrem: General: Yes normal to inspection and Yes capillary refill normal Results Labs 01/11/25 05:22 01/11/25 05:22 Labs: Abnormal lab results 01/10/25 01/11/25 01/11/25 Range/Units 20:45 05:22 05:32 RBC 2.55 L 2.58 L (4.60-5.80) X10*6/uL Hgb 7.8 L 7.9 L (14.0-18.0) g/dl Hct 23.2 L 23.8 L (42.0-52.0) % RDW 17.2 H 17.6 H (11.0-16.0) % Plt Count 116 L 124 L (160-400) X10*3/uL MPV 9.3 L (9.4-12.4) fL [place] % (Auto) 11.3 H (2-11) % Eos % (Auto) 6.6 H (0-4) % Eos # (Auto) 0.6 H (0.0-0.4) X10*3/uL Absolute Nucleated RBC 0.190 H 0.200 H (0.0-0.012) X10*3/uL Nucleated RBC % (auto) 1.8 H 2.1 H (0.0-0.2) /100WBC VBG HCO3 27 H (22-26) mmol/L Sodium 147 H (135-145) mmol/L Chloride 117 H (96-108) mmol/L Anion Gap 10 L (12-20) BUN 22 H (9-16) mg/dL POC Glucose (60-115) mg/dL Calcium 8.2 L (8.4-10.2) mg/dL Phosphorus 2.5 L (2.7-4.5) mg/dL Total Protein 5.6 L (6.5-8.0) g/dL 01/11/25 Range/Units 11:15 RBC (4.60-5.80) X10*6/uL Hgb (14.0-18.0) g/dl Hct (42.0-52.0) % RDW (11.0-16.0) % Plt Count (160-400) X10*3/uL MPV (9.4-12.4) fL [place] % (Auto) (2-11) % Eos % (Auto) (0-4) % Eos # (Auto) (0.0-0.4) X10*3/uL Absolute Nucleated RBC (0.0-0.012) X10*3/uL Nucleated RBC % (auto) (0.0-0.2) /100WBC VBG HCO3 (22-26) mmol/L Sodium (135-145) mmol/L Chloride (96-108) mmol/L Anion Gap (12-20) BUN (9-16) mg/dL POC Glucose 131 H (60-115) mg/dL Calcium (8.4-10.2) mg/dL Phosphorus (2.7-4.5) mg/dL Total Protein (6.5-8.0) g/dL Short CBC 01/10/25 01/11/25 Range/Units 20:45 05:22 WBC 10.4 9.6 (4.8-10.8) X10*3/uL Hgb 7.8 L 7.9 L (14.0-18.0) g/dl Hct 23.2 L 23.8 L (42.0-52.0) % Plt Count 116 L 124 L (160-400) X10*3/uL BMP 01/11/25 05:22 Sodium 147 H Potassium 3.7 Chloride 117 H Carbon Dioxide 24 BUN 22 H Creatinine 0.70 Calcium 8.2 L Liver Function 01/11/25 Range/Units 05:22 Total Bilirubin 0.3 (0.0-1.0) mg/dL AST 35 (5-37) U/L ALT 8 (0-40) U/L Alkaline Phosphatase 53 (39-117) U/L Albumin 3.7 (3.5-5.0) g/dL Urine 01/07/25 Range/Units 18:03 Urine Color Yellow Urine Appearance Clear Urine pH 5.5 (5.0-9.0) Ur Specific [place] >= 1.030 H (1.005-1.025) Urine Protein Trace (Neg-Trace) mg/dL Urine Glucose (UA) Negative (Negative) mg/dL All other labs normal. Assessment and Plan (1) Urinary retention due to benign prostatic hyperplasia: Status: Acute Plan Fuentes catheter placed Start finasteride 4 week follow-up voiding trial Procedures Date of Service Date of Service: 01/11/25 Catheter Insertion (Urinary) Date of insertion: 01/11/25 Time of insertion: 16:46 Replacement of catheter present on admission: No Reason for placing: Acute urinary retention Bladder scan/ultrasound used before catheterization: Yes Antiseptic solution prep: Povidone-Iodine Topical anesthesia used: Yes Catheter type/location: 2-way Urethral Size (Lao): 16 Catheter balloon size (mL): 10 Results: consulted Complications: Difficult Fuentes catheter. Catheter placed by Urology. Comment: 1300 cc initial output.
[2025-01-11 17:51] LABS: Glucose, Whole Blood 127 mg/dL (60-115)
[2025-01-11 18:23] LABS: MANUAL DIFF FLAG NO
[2025-01-11 18:25] LABS: Basophils Percent Auto 0.3 % (0-2); Hematocrit 27.2 % (42.0-52.0); Hemoglobin 9.2 g/dl (14.0-18.0); Imm Gran Abs Auto 0.06 X10*3/uL (0.00-0.03); Imm Gran Pct Auto 0.4 % (0.0-0.4); Lymphocytes Absolute Auto 0.7 X10*3/uL (1.2-4.9); Lymphocytes Percent Auto 4.7 % (20-40); Mean Corpuscular HGB Conc 33.8 g/dl (31.0-36.0); Mean Corpuscular Hemoglobin 30.5 pg (27.0-33.0); Mean Corpuscular Volume 90.1 fL (80.0-98.0); Mean Platelet Volume 8.7 fL (9.4-12.4); Monocytes Percent Auto 6.7 % (2-11); NRBC Pct Auto 1.2 /100WBC (0.0-0.2); Neutrophils Absolute Auto 12.9 x10*3/uL (2.0-8.3); Neutrophils Percent Auto 87.9 % (45-73); Platelet Count 145 X10*3/uL (160-400); Red Blood Count 3.02 X10*6/uL (4.60-5.80); Red Cell Distribution Width 17.2 % (11.0-16.0); White Blood Count 14.7 X10*3/uL (4.8-10.8)
[2025-01-11] MEDS: niCARdipine HCL 25 MG in 0.9 % Sodium Chloride 240 ML 125 MG IVCONT (19:30)
[2025-01-11] MEDS: niCARdipine HCL 25 MG in 0.9 % Sodium Chloride 240 ML IVCONT (23:09)
[2025-01-12] VITALS (26 sets, daily range): BP systolic 130–186; BP diastolic 63–83; PULSE 82–119; RESP 16–25; TEMP 36.3–37.9; O2SAT 95–99; BMI 37.3; BMI 35.5
[2025-01-12 00:29] LABS: Glucose, Whole Blood 113 mg/dL (60-115)
[2025-01-12] MEDS: Lidocaine HCl 2 % Urojet 10 ML JEL.PF.APP TOPICAL (03:10)
[2025-01-12] MEDS: Esmolol HCl/NaCl Iso 2,500 MG/250 ML IV.SOLN 37.77 MG IVCONT (04:32)
[2025-01-12 05:02] LABS: VBG Base Excess 1.9 mmol/L; VBG HCO3 25 mmol/L (22-26); VBG pCO2 37 mmHg; VBG pH 7.44 (7.32-7.43); VBG pO2 62 mmHg
[2025-01-12 05:06] LABS: Venous Blood Gas Refer to POC result
[2025-01-12 05:34] LABS: MANUAL DIFF FLAG NO
[2025-01-12 05:38] LABS: Basophils Percent Auto 0.3 % (0-2); Eosinophils Absolute Auto 0.1 X10*3/uL (0.0-0.4); Eosinophils Percent Auto 0.6 % (0-4); Hematocrit 26.2 % (42.0-52.0); Hemoglobin 8.6 g/dl (14.0-18.0); Imm Gran Abs Auto 0.06 X10*3/uL (0.00-0.03); Imm Gran Pct Auto 0.5 % (0.0-0.4); Lymphocytes Absolute Auto 1.3 X10*3/uL (1.2-4.9); Lymphocytes Percent Auto 10.8 % (20-40); Mean Corpuscular HGB Conc 32.8 g/dl (31.0-36.0); Mean Corpuscular Hemoglobin 30.2 pg (27.0-33.0); Mean Corpuscular Volume 91.9 fL (80.0-98.0); Mean Platelet Volume 9.5 fL (9.4-12.4); Monocytes Absolute Auto 1.1 X10*3/uL (0.1-1.2); Monocytes Percent Auto 9.3 % (2-11); Neutrophils Absolute Auto 9.3 x10*3/uL (2.0-8.3); Neutrophils Percent Auto 78.5 % (45-73); Platelet Count 171 X10*3/uL (160-400); Red Blood Count 2.85 X10*6/uL (4.60-5.80); Red Cell Distribution Width 16.8 % (11.0-16.0); White Blood Count 11.9 X10*3/uL (4.8-10.8)
[2025-01-12 05:39] LABS: NRBC Pct Auto 1.2 /100WBC (0.0-0.2)
[2025-01-12 05:53] LABS: Albumin Level 3.9 g/dL (3.5-5.0); Anion Gap 14 (12-20); Blood Urea Nitrogen 20 mg/dL (9-16); Calcium 8.6 mg/dL (8.4-10.2); Carbon Dioxide 23 mmol/L (22-29); Chloride 115 mmol/L (96-108); Creatinine Clr Calc Pharmacy 129.1; Estimated Glomerular Filt Rate > 60; Glucose Random 103 mg/dL (60-115); Magnesium 2.3 mg/dL (1.6-2.6); Phosphorus 2.5 mg/dL (2.7-4.5); Potassium 3.7 mmol/L (3.3-5.1); Sodium 148 mmol/L (135-145)
[2025-01-12] MEDS: Pantoprazole Sodium 40 MG/10 ML VIAL IVPUSH ×2 (05:59→16:42)
--- NOTE | 2025-01-12 06:43 | PC.NURSE ---
Patient reported 10/10 pain in huitron catheter. GIA Farley notified. Urojet ordered and administered with some effectiveness.
[2025-01-12] MEDS: 0.9 % Sodium Chloride Flush 3 ML SYRINGE IVFLUSH ×3 (07:14→22:54)
[2025-01-12] MEDS: Potassium Phosphate/NS 15 MMOL/250 ML PLAST..BAG 62.5 MMOL IV (07:14)
[2025-01-12] MEDS: Finasteride 5 MG TABLET PO (08:21)
[2025-01-12] MEDS: lisinopriL 20 MG TABLET PO (08:44)
[2025-01-12] MEDS: fentaNYL citrate/PF 100 MCG/2 ML VIAL 50 MCG IVPUSH (08:44)
--- NOTE | 2025-01-12 10:18 | P.PNCC_ITS ---
Subjective Subjective Date of Service: 01/12/25 Interval History: 69-year-old gentleman with underlying hep C, pancreatectomy and splenectomy in August 2023 for neuroendocrine tumor, obesity, BPH, ALEXANDRA admitted on 01/07/2025 with abdominal pain, nausea, and lightheadedness. On ER evaluation patient with melena and presyncopal event. Patient had initial EGD on 01/07/2025 that demonstrated large amount of clots with inability to locate the source. Patient was kept intubated at the end of procedure and transferred to the intensive care unit. Overnight 01/07-01/08 patient with development of brisk upper GI bleeding with significant hemodynamic instability requiring pressor support and total of 14 units of packed red blood cells, 4 FFP, and 2 platelets. Patient had repeat upper endoscopy on 01/08/2025 with inability to locate the bleed again. Thereafter, taken for IR embolization with resolution of bleeding at that time. Extubated 01/11/2025. No events overnight. Titrated off esmolol/Cardene drips. Critical Care Time (minutes): 0 Physical Exam 2 Vital Signs: Vital Signs: Last Vital Signs Temp 99.9 F 01/12/25 09:00 Pulse 87 01/12/25 09:00 Resp 21 H 01/12/25 09:00 BP 150/72 H 01/12/25 09:00 Pulse Ox 97 01/12/25 09:00 O2 Del Method Nasal Cannula 01/12/25 09:00 O2 Flow Rate 2 01/12/25 09:00 FiO2 30 01/11/25 23:00 BMI result Body Mass Index 37.3 Const: General: no acute distress, alert and awake Eyes: Sclerae: sclerae normal EOM: EOMs intact bilaterally Neck: Neck: Yes no lymphadenopathy, Yes trachea midline and Yes supple Resp: Effort & Inspection: normal respiratory effort and no respiratory distress Auscultation: clear to auscultation bilaterally Cardio: Rate: regular rate Rhythm: regular rhythm Heart sounds: no gallops, no murmurs and no rubs GI: Palpation (GI): Soft to palpation and Other GI palpation findings present ( Nontender) Auscultation: normal bowel sounds Extrem: General: Yes no pedal edema, No clubbing and No cyanosis Objective Data Labs 01/12/25 04:26 01/12/25 04:26 Labs: Laboratory Results - last 24 hr 01/11/25 01/11/25 01/11/25 11:15 17:45 18:17 WBC 14.7 H RBC 3.02 L Hgb 9.2 L Hct 27.2 L MCV 90.1 MCH 30.5 MCHC 33.8 RDW 17.2 H Plt Count 145 L MPV 8.7 L Immature Gran % (Auto) 0.4 Neut % (Auto) 87.9 H Lymph % (Auto) 4.7 L [place] % (Auto) 6.7 Eos % (Auto) 0.0 Baso % (Auto) 0.3 Lymph # (Auto) 0.7 L [place] # (Auto) 1.0 Eos # (Auto) 0.0 Baso # (Auto) 0.0 Abs Immat Gran (auto) 0.06 H Absolute Neuts (auto) 12.9 H Absolute Nucleated RBC 0.170 H Nucleated RBC % (auto) 1.2 H VBG pH VBG pCO2 VBG pO2 VBG HCO3 VBG O2 Saturation VBG Base Excess Sodium Potassium Chloride Carbon Dioxide Anion Gap BUN Creatinine Estim Creat Clear Calc Estimated GFR POC Glucose 131 H 127 H Random Glucose Calcium Phosphorus Magnesium Albumin 01/12/25 01/12/25 01/12/25 00:18 04:26 04:57 WBC 11.9 H RBC 2.85 L Hgb 8.6 L Hct 26.2 L MCV 91.9 MCH 30.2 MCHC 32.8 RDW 16.8 H Plt Count 171 MPV 9.5 Immature Gran % (Auto) 0.5 H Neut % (Auto) 78.5 H Lymph % (Auto) 10.8 L [place] % (Auto) 9.3 Eos % (Auto) 0.6 Baso % (Auto) 0.3 Lymph # (Auto) 1.3 [place] # (Auto) 1.1 Eos # (Auto) 0.1 Baso # (Auto) 0.0 Abs Immat Gran (auto) 0.06 H Absolute Neuts (auto) 9.3 H Absolute Nucleated RBC 0.140 H Nucleated RBC % (auto) 1.2 H VBG pH 7.44 H VBG pCO2 37 VBG pO2 62 VBG HCO3 25 VBG O2 Saturation 90.0 VBG Base Excess 1.9 Sodium 148 H Potassium 3.7 Chloride 115 H Carbon Dioxide 23 Anion Gap 14 BUN 20 H Creatinine 0.74 Estim Creat Clear Calc 129.1 Estimated GFR > 60 POC Glucose 113 Random Glucose 103 Calcium 8.6 Phosphorus 2.5 L Magnesium 2.3 Albumin 3.9 Microbiology Microbiology Results: Microbiology 01/07/25 03:20 Blood - Venous Blood Culture - Final No growth after 5 days. 01/07/25 01:00 Blood - Venous Blood Culture - Final No growth after 5 days. Progress Note: A&P Assessment and plan (1) Acute GI bleeding: Status: Acute (2) Urinary retention due to benign prostatic hyperplasia: Status: Acute (3) Hypertensive urgency: Status: Acute Plan Assessment: 69-year-old gentleman admitted with acute upper GI bleed with acute blood loss anemia and hemorrhagic shock now status post IR embolization Plan: Neuro: No acute issues. Cardiac: Hemorrhagic shock, resolved, titrated off pressor support. Pulmonary: Remained intubated postprocedure, extubated 01/11/2025. Renal: Acute kidney injury secondary to hemorrhagic shock, resolved. Non oliguric. Continue to monitor renal indices and urine output. BPH with urinary retention, continues with Fuentes. Endo: No acute issues. GI: Upper GI bleed. Gastroenterology, General surgery, and Interventional Radiology Services care appreciated. Now status post embolization with cessation of the acute bleeding. Continue PPI. Continue to monitor. CT angio abdomen on 01/10/2025 with no bleed identified. ID: No acute issues Heme/Onc: Acute blood loss anemia secondary to upper GI bleed. Status post 14 units of packed red blood cells, 2 platelets, and FFP. Hemoglobin stabilized. Continue to monitor hemoglobin, transfusion threshold of 7. Psych: No acute issues. Miscellaneous: No acute issues. Prophylaxis: Pneumatic compression, ppi Diet: Regular Quality Stroke Does the patient have a stroke diagnosis?: No VTE Prior VTE?: No VTE Risk Level:: Medical - moderate - high VTE Device Contraindication: N/A - Device Ordered VTE Drug Contraindication: Treatment Not Indicated
[2025-01-12] MEDS: Metoprolol Succinate ER 50 MG TAB.ER.24H PO (11:45)
[2025-01-12 11:52] LABS: Glucose, Whole Blood 134 mg/dL (60-115)
[2025-01-12] MEDS: fentaNYL citrate/PF 100 MCG/2 ML VIAL IVPUSH (12:45)
[2025-01-12] MEDS: Morphine Sulfate 2 MG/ML CARTRIDGE IVPUSH ×2 (16:47→22:53)
[2025-01-12] MEDS: Simethicone 80 MG TAB.CHEW 160 MG PO (17:55)
[2025-01-12 18:49] LABS: Glucose, Whole Blood 106 mg/dL (60-115)
[2025-01-12] MEDS: Simethicone 80 MG TAB.CHEW PO (19:57)
[2025-01-12] MEDS: ondansetron HCL 4 MG/2 ML VIAL IVPUSH (20:11)
[2025-01-12 23:42] LABS: Glucose, Whole Blood 101 mg/dL (60-115)
[2025-01-13] VITALS (7 sets, daily range): BP systolic 142–170; BP diastolic 59–81; PULSE 71–86; RESP 16–18; TEMP 36.7–37.2; O2SAT 97–98; BMI 35.2
[2025-01-13] MEDS: Morphine Sulfate 2 MG/ML CARTRIDGE IVPUSH ×5 (05:08→22:29)
[2025-01-13] MEDS: Pantoprazole Sodium 40 MG/10 ML VIAL IVPUSH ×2 (05:08→15:59)
[2025-01-13 06:08] LABS: Glucose, Whole Blood 103 mg/dL (60-115)
[2025-01-13 07:10] LABS: MANUAL DIFF FLAG NO
[2025-01-13 07:35] LABS: Basophils Absolute Auto 0.1 X10*3/uL (0.0-0.2); Basophils Percent Auto 0.5 % (0-2); Eosinophils Absolute Auto 0.5 X10*3/uL (0.0-0.4); Eosinophils Percent Auto 4.2 % (0-4); Hematocrit 27.4 % (42.0-52.0); Hemoglobin 9.2 g/dl (14.0-18.0); Imm Gran Abs Auto 0.05 X10*3/uL (0.00-0.03); Imm Gran Pct Auto 0.4 % (0.0-0.4); Lymphocytes Absolute Auto 1.8 X10*3/uL (1.2-4.9); Lymphocytes Percent Auto 14.9 % (20-40); Mean Corpuscular HGB Conc 33.6 g/dl (31.0-36.0); Mean Corpuscular Hemoglobin 30.6 pg (27.0-33.0); Mean Platelet Volume 9.3 fL (9.4-12.4); Monocytes Absolute Auto 1.3 X10*3/uL (0.1-1.2); Monocytes Percent Auto 10.2 % (2-11); NRBC Pct Auto 0.6 /100WBC (0.0-0.2); Neutrophils Absolute Auto 8.6 x10*3/uL (2.0-8.3); Neutrophils Percent Auto 69.8 % (45-73); Platelet Count 223 X10*3/uL (160-400); Red Blood Count 3.01 X10*6/uL (4.60-5.80); Red Cell Distribution Width 15.8 % (11.0-16.0); White Blood Count 12.2 X10*3/uL (4.8-10.8)
[2025-01-13 07:55] LABS: Albumin Level 3.9 g/dL (3.5-5.0); Anion Gap 11 (12-20); Blood Urea Nitrogen 13 mg/dL (9-16); Calcium 8.5 mg/dL (8.4-10.2); Carbon Dioxide 24 mmol/L (22-29); Chloride 113 mmol/L (96-108); Creatinine Clr Calc Pharmacy 146.5; Estimated Glomerular Filt Rate > 60; Glucose Random 107 mg/dL (60-115); Magnesium 2.1 mg/dL (1.6-2.6); Phosphorus 2.4 mg/dL (2.7-4.5); Sodium 144 mmol/L (135-145)
[2025-01-13] MEDS: Simethicone 80 MG TAB.CHEW PO ×4 (08:25→19:16)
[2025-01-13] MEDS: lisinopriL 20 MG TABLET PO (08:25)
[2025-01-13] MEDS: Metoprolol Succinate ER 50 MG TAB.ER.24H PO (08:25)
[2025-01-13] MEDS: Finasteride 5 MG TABLET PO (08:26)
[2025-01-13] MEDS: 0.9 % Sodium Chloride Flush 3 ML SYRINGE IVFLUSH ×3 (08:26→19:17)
[2025-01-13 11:15] LABS: Glucose, Whole Blood 123 mg/dL (60-115)
--- NOTE | 2025-01-13 11:43 | MHC.CM.PN ---
Addendum entered by Maru Coombs RN 01/13/25 15:35: P.T. RECOMMENDING STR, CM MET W/PT AND FAMILY AT BEDSIDE, PT AGREEABLE TO STR AND PREFERRED FACILITY IS [facility], REF PLACED. Original Note: EMR REVIEWED, PT W/HEMORRAGHIC SHOCK AND STEP DOWN FROM ICU, PER HOSPITALIST ANTIC PT WILL NEED P.T. EVAL FOR DISPO, NEW TASK FOR [facility] PLACED BY PREVIOUS CM, CM WILL CONT TO FOLLOW DC NEEDS.
--- NOTE | 2025-01-13 12:04 | P.PNIM_ITS ---
Subjective Subjective Date of Service: 01/13/25 Interval History: weakness Physical Exam 2 Vital Signs: Vital Signs: Last Vital Signs Temp 98.9 F 01/13/25 11:03 Pulse 86 01/13/25 11:03 Resp 18 01/13/25 11:03 BP 167/77 H 01/13/25 11:03 Pulse Ox 98 01/13/25 11:03 O2 Del Method Room Air 01/13/25 11:03 O2 Flow Rate 2 01/12/25 07:00 FiO2 30 01/11/25 23:00 BMI result Body Mass Index 35.2 General: AO X 3, no acute distress Resp: CTA bilateral, no accessory muscles used CVS: S1,S2,RRR GI: soft, non tender, non distended Neuro: motor grossly intact, alert Psych: appropriate affect, appropriate insight Objective Data Active Medications Acetaminophen (Acetaminophen 325 Mg Tablet) 650 mg PO Q4H PRN PRN Reason: Pain, Mild 1-3,fever,headache Finasteride (Finasteride 5 Mg Tablet) 5 mg PO DAILY [facility] Last Admin: 01/13/25 08:26 Dose: 5 mg Documented By: EDWIN Lisinopril (Lisinopril 20 Mg Tablet) 20 mg PO DAILY [facility]; Protocol Last Admin: 01/13/25 08:25 Dose: 20 mg Documented By: EDWIN Metoprolol Succinate (Metoprolol Succinate Er 50 Mg Tab.Er.24h) 50 mg PO DAILY [facility]; Protocol Last Admin: 01/13/25 08:25 Dose: 50 mg Documented By: EDWIN Morphine Sulfate (Morphine Sulfate 2 Mg/Ml Cartridge) 2 mg IVPUSH Q6H PRN; Protocol PRN Reason: Pain, Severe (Pain Scale 7-10) Last Admin: 01/13/25 11:29 Dose: 2 mg Documented By: EDWIN Ondansetron HCl (Ondansetron Hcl 4 Mg/2 Ml Vial) 4 mg IVPUSH Q4H PRN PRN Reason: Nausea and Vomiting Last Admin: 01/12/25 20:11 Dose: 4 mg Documented By: RANDOLPH Pantoprazole Sodium (Pantoprazole Sodium 40 Mg/10 Ml Vial) 40 mg IVPUSH BID@0630,1630 [facility] Last Admin: 01/13/25 05:08 Dose: 40 mg Documented By: RANDOLPH Simethicone (Simethicone 80 Mg Tab.Chew) 80 mg PO QIDWMHS [facility] Last Admin: 01/13/25 11:29 Dose: 80 mg Documented By: EDWIN Sodium Chloride (0.9 % Sodium Chloride Flush 3 Ml Syringe) 3 ml IVFLUSH QSHIFT [facility] Last Admin: 01/13/25 08:26 Dose: 3 ml Documented By: EDWIN Labs 01/13/25 06:47 01/13/25 06:47 Labs: Laboratory Results - last 24 hr 01/12/25 01/12/25 01/13/25 18:44 23:38 06:04 MCV MCH MCHC RDW Plt Count MPV Immature Gran % (Auto) Neut % (Auto) Lymph % (Auto) [place] % (Auto) Eos % (Auto) Baso % (Auto) Lymph # (Auto) [place] # (Auto) Eos # (Auto) Baso # (Auto) Abs Immat Gran (auto) Absolute Neuts (auto) Absolute Nucleated RBC Nucleated RBC % (auto) Anion Gap Estim Creat Clear Calc Estimated GFR POC Glucose 106 101 103 Random Glucose Calcium Phosphorus Magnesium Albumin 01/13/25 01/13/25 06:47 11:09 MCV 91.0 MCH 30.6 MCHC 33.6 RDW 15.8 Plt Count 223 D MPV 9.3 L Immature Gran % (Auto) 0.4 Neut % (Auto) 69.8 Lymph % (Auto) 14.9 L [place] % (Auto) 10.2 Eos % (Auto) 4.2 H Baso % (Auto) 0.5 Lymph # (Auto) 1.8 [place] # (Auto) 1.3 H Eos # (Auto) 0.5 H Baso # (Auto) 0.1 Abs Immat Gran (auto) 0.05 H Absolute Neuts (auto) 8.6 H Absolute Nucleated RBC 0.070 H Nucleated RBC % (auto) 0.6 H Anion Gap 11 L Estim Creat Clear Calc 146.5 Estimated GFR > 60 POC Glucose 123 H Random Glucose 107 Calcium 8.5 Phosphorus 2.4 L Magnesium 2.1 Albumin 3.9 Assessment and Plan (1) Hemorrhagic shock: Status: Acute Plan 69M PMH SCHULTZ, obesity, htn, bph, hcv, pancreatectomy and splenectomy in aug 2023 for neuroendocrine tumor, julienne admitted 01/07/25 with abdominal pain, in ED had melena and presyncope EGD with large clots, admitted to icu, complicated by hemmorhagic shock, 14 units total prbc, 4FFP, 2PLTs, IR embolism, extubated 01/11/25, downgraded 01/12/25 acute hemmorhagic shock due to acute blood loss anemia from upper gi bleed continue ppi monitor cbc htn with hypertensive emergency after shock resolved, was severely hypertensive, now off cardene drip bp better continue lisinpirl, toprol bph proscar dvt prophylaxis - mechanical due to gi bleed full code reason for continued hospitalization:monitor cbc Quality Stroke Does the patient have a stroke diagnosis?: No VTE Prior VTE?: No VTE Risk Level:: Medical - moderate - high VTE Device Contraindication: N/A - Device Ordered VTE Drug Contraindication: Treatment Not Indicated
[2025-01-13 17:45] LABS: Glucose, Whole Blood 113 mg/dL (60-115)
[2025-01-14] MEDS: Morphine Sulfate 2 MG/ML CARTRIDGE IVPUSH ×2 (01:43→05:26)
[2025-01-14 02:20] VITALS: RESP 16
[2025-01-14 03:29] VITALS: BP 165/80; PULSE 78; RESP 16; TEMP 36.7; O2SAT 97
[2025-01-14] MEDS: Pantoprazole Sodium 40 MG/10 ML VIAL IVPUSH (05:26)
[2025-01-14 06:00] VITALS: BMI 36.3
[2025-01-14 06:07] LABS: Glucose, Whole Blood 99 mg/dL (60-115)
[2025-01-14 06:25] LABS: Hematocrit 29.1 % (42.0-52.0); Hemoglobin 9.6 g/dl (14.0-18.0); Mean Corpuscular Hemoglobin 29.9 pg (27.0-33.0); Mean Corpuscular Volume 90.7 fL (80.0-98.0); Mean Platelet Volume 9.1 fL (9.4-12.4); NRBC Pct Auto 0.2 /100WBC (0.0-0.2); Platelet Count 270 X10*3/uL (160-400); Red Blood Count 3.21 X10*6/uL (4.60-5.80); Red Cell Distribution Width 15.6 % (11.0-16.0); White Blood Count 12.9 X10*3/uL (4.8-10.8)
[2025-01-14 06:43] LABS: Anion Gap 10 (12-20); Blood Urea Nitrogen 16 mg/dL (9-16); Calcium 8.8 mg/dL (8.4-10.2); Carbon Dioxide 26 mmol/L (22-29); Chloride 111 mmol/L (96-108); Creatinine Clr Calc Pharmacy 146.6; Estimated Glomerular Filt Rate > 60; Glucose Random 102 mg/dL (60-115); Potassium 3.8 mmol/L (3.3-5.1); Sodium 143 mmol/L (135-145)
[2025-01-14 07:06] VITALS: BP 161/75; PULSE 82; RESP 18; TEMP 36.8; O2SAT 97
[2025-01-14] MEDS: 0.9 % Sodium Chloride Flush 3 ML SYRINGE IVFLUSH (08:46)
[2025-01-14] MEDS: Simethicone 80 MG TAB.CHEW PO (08:46)
[2025-01-14] MEDS: Metoprolol Succinate ER 50 MG TAB.ER.24H PO (08:46)
[2025-01-14] MEDS: lisinopriL 20 MG TABLET PO (08:46)
[2025-01-14] MEDS: Finasteride 5 MG TABLET PO (08:46)
--- NOTE | 2025-01-14 09:14 | P.PNIM_ITS ---
Subjective Subjective Date of Service: 01/14/25 Interval History: weakness Physical Exam 2 Vital Signs: Vital Signs: Last Vital Signs Temp 98.2 F 01/14/25 07:06 Pulse 82 01/14/25 07:06 Resp 18 01/14/25 07:06 BP 161/75 H 01/14/25 07:06 Pulse Ox 97 01/14/25 07:06 O2 Del Method Room Air 01/14/25 07:06 O2 Flow Rate 2 01/12/25 07:00 FiO2 30 01/11/25 23:00 BMI result Body Mass Index 36.3 General: AO X 3, no acute distress Resp: CTA bilateral, no accessory muscles used CVS: S1,S2,RRR GI: soft, non tender, non distended Neuro: motor grossly intact, alert Psych: appropriate affect, appropriate insight Objective Data Active Medications Acetaminophen (Acetaminophen 325 Mg Tablet) 650 mg PO Q4H PRN PRN Reason: Pain, Mild 1-3,fever,headache Finasteride (Finasteride 5 Mg Tablet) 5 mg PO DAILY [facility] BEDS AT [facility] Last Admin: 01/14/25 08:46 Dose: 5 mg Documented By: KATHY Lisinopril (Lisinopril 20 Mg Tablet) 20 mg PO DAILY [facility]S [facility]CLUDE 234 BEDS AT THE [facility]; Protocol Last Admin: 01/14/25 08:46 Dose: 20 mg Documented By: KATHY Metoprolol Succinate (Metoprolol Succinate Er 50 Mg Tab.Er.24h) 50 mg PO DAILY [facility]S INCLUDE 234 BEDS AT THE [facility]; Protocol Last Admin: 01/14/25 08:46 Dose: 50 mg Documented By: KATHY Morphine Sulfate (Morphine Sulfate 2 Mg/Ml Cartridge) 2 mg IVPUSH Q3H PRN; Protocol PRN Reason: Pain, Severe (Pain Scale 7-10) Last Admin: 01/14/25 05:26 Dose: 2 mg Documented By: RANDOLPH Ondansetron HCl (Ondansetron Hcl 4 Mg/2 Ml Vial) 4 mg IVPUSH Q4H PRN PRN Reason: Nausea and Vomiting Last Admin: 01/12/25 20:11 Dose: 4 mg Documented By: RANDOLPH Simethicone (Simethicone 80 Mg Tab.Chew) 80 mg PO QIDWMHS COUNTS INCLUDE 234 BEDS AT THE [facility] Last Admin: 01/14/25 08:46 Dose: 80 mg Documented By: KATHY Sodium Chloride (0.9 % Sodium Chloride Flush 3 Ml Syringe) 3 ml IVFLUSH QSHIFT COUNTS INCLUDE 234 BEDS AT THE [facility] Last Admin: 01/14/25 08:46 Dose: 3 ml Documented By: KATHY Labs 01/14/25 05:57 01/14/25 05:57 Labs: Laboratory Results - last 24 hr 01/13/25 01/13/25 01/14/25 11:09 17:41 05:57 MCV 90.7 MCH 29.9 MCHC 33.0 RDW 15.6 Plt Count 270 MPV 9.1 L Absolute Nucleated RBC 0.030 H Nucleated RBC % (auto) 0.2 Anion Gap 10 L Estim Creat Clear Calc 146.6 Estimated GFR > 60 POC Glucose 123 H 113 Random Glucose 102 Calcium 8.8 01/14/25 06:03 MCV MCH MCHC RDW Plt Count MPV Absolute Nucleated RBC Nucleated RBC % (auto) Anion Gap Estim Creat Clear Calc Estimated GFR POC Glucose 99 Random Glucose Calcium Assessment and Plan (1) Hemorrhagic shock: Status: Acute Plan 69M PMH SCHULTZ, obesity, htn, bph, hcv, pancreatectomy and splenectomy in aug 2023 for neuroendocrine tumor, julienne admitted 01/07/25 with abdominal pain, in ED had melena and presyncope EGD with large clots, admitted to icu, complicated by hemmorhagic shock, 14 units total prbc, 4FFP, 2PLTs, IR embolism, extubated 01/11/25, downgraded 01/12/25 acute hemmorhagic shock due to acute blood loss anemia from upper gi bleed continue ppi monitor cbc htn with hypertensive emergency after shock resolved, was severely hypertensive, now off cardene drip bp better continue lisinpirl, toprol bph proscar dvt prophylaxis - mechanical due to gi bleed full code reason for continued hospitalization:dispo planning Quality Stroke Does the patient have a stroke diagnosis?: No VTE Prior VTE?: No VTE Risk Level:: Medical - moderate - high VTE Device Contraindication: N/A - Device Ordered VTE Drug Contraindication: Treatment Not Indicated
--- NOTE | 2025-01-14 09:18 | P.DS_ITS ---
DS: Providers Provider Date of Service: 01/14/25 Date of admission: 01/07/25 05:23 Date of discharge: 01/14/25 Primary care physician: Jeremy Hyde NP Consults: 01/07/25 05:40 Consult to Gastroenterology Routine Consulting Provider: Hang Rodrigues Reason for consultation: GI bleed 01/08/25 10:16 Consult to General Surgery Stat Consulting Provider: [facility] Reason for consultation: Brisk upper GI bleed Has provider been notified: No 01/11/25 15:53 Consult to Urology Stat Consulting Provider: [facility] Urology Services Reason for consultation: retention - unable to straight cath - slight bloody output DS: Diagnosis Discharge Diagnosis (1) Hemorrhagic shock: Status: Acute DS: Summary Hospital Course Hospital Course: from initial hpi: 69-year-old male with pertinent history of 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 Patient states he has been having painless black stools that started 2 weeks prior to presentation. He has been having multiple episodes of black stools every day. This was without any abdominal discomfort until on the day of presentation when he had sudden onset of pain which is in the center of the abdomen, intermittent, nonradiating and without any relieving factors. Patient states he ate something at 18:00 and he thought the abdominal pain is due to it as it started at 21:00. Patient tried to get up to go to the bathroom and he felt dizzy/lightheaded and nearly passed out. He did not lose consciousness. Did not hit his head. Patient has had easy fatigability and weakness over the last few days. No fever, chills, chest pain, palpitations, shortness of breath, changes in urinary habits. Patient passed out in the ER while having a bowel movement as per ER provider. Black tarry stools noted in the ER. In the emergency department, hemoglobin found to be 7.9 and stool occult blood positive. 2 unit PRBC ordered in the ER. hospital course: Patient was admitted for acute hemorrhagic shock due to acute blood loss anemia from upper GI bleed. In ED had presyncopal event with melena, emergent EGD showed large clots without being able to visualize source of bleed. He remained intubated after EGD. He was admitted to the intensive care unit and given total of 14 units PRBC, 4 FFP, 2 platelets. Underwent IR embolization which was successful, extubated 01/11/2025 and remained stable with hemoglobin remained stable. Was continued on PPI. After resolution of hemorrhagic shock course was complicated by hypertensive emergency which required nicardipine drip, BP became better controlled on lisinopril and Toprol. Lisinopril was increased to 20 mg daily. For BPH this was complicated by urinary retention requiring Fuentes placement by urologist. Patient was started on Proscar and will continue Fuentes for 4 weeks and follow up with Urology as outpatient for voiding trial. Due to deconditioning was seen by physical therapy recommended short-term rehab to which patient will be discharged. Time Attestation Discharge Coordination Time (in mins): 35 Quality: Safe Use of Opioids Does Pt have an Active Cancer Diagnosis on the Problem List?: No Quality: Stroke Does the patient have a stroke diagnosis?: No Physical Exam Vital Signs: Vital Signs: Last Vital Signs Temp 98.2 F 01/14/25 07:06 Pulse 82 01/14/25 07:06 Resp 18 01/14/25 07:06 BP 161/75 H 01/14/25 07:06 Pulse Ox 97 01/14/25 07:06 O2 Del Method Room Air 01/14/25 07:06 O2 Flow Rate 2 01/12/25 07:00 FiO2 30 01/11/25 23:00 BMI result Body Mass Index 36.3 General: AO X 3, no acute distress Resp: CTA bilateral, no accessory muscles used CVS: S1,S2,RRR GI: soft, non tender, non distended Neuro: motor grossly intact, alert Psych: appropriate affect, appropriate insight DS: Data Data Completed and Pending Labs on day of discharge: Laboratory Results - last 24 hr 01/13/25 01/13/25 01/14/25 11:09 17:41 05:57 WBC 12.9 H RBC 3.21 L Hgb 9.6 L Hct 29.1 L MCV 90.7 MCH 29.9 MCHC 33.0 RDW 15.6 Plt Count 270 MPV 9.1 L Absolute Nucleated RBC 0.030 H Nucleated RBC % (auto) 0.2 Sodium 143 Potassium 3.8 Chloride 111 H Carbon Dioxide 26 Anion Gap 10 L BUN 16 Creatinine 0.64 Estim Creat Clear Calc 146.6 Estimated GFR > 60 POC Glucose 123 H 113 Random Glucose 102 Calcium 8.8 01/14/25 06:03 WBC RBC Hgb Hct MCV MCH MCHC RDW Plt Count MPV Absolute Nucleated RBC Nucleated RBC % (auto) Sodium Potassium Chloride Carbon Dioxide Anion Gap BUN Creatinine Estim Creat Clear Calc Estimated GFR POC Glucose 99 Random Glucose Calcium Discharge Plan Discharge Anticipated Discharge Date/Time: 01/14/25 09:15 Patient Disposition: Xfer SNF Discharge Diagnosis: hemorhagic shock Referrals: Flash Duckworth MD [Physician] - 1 Week Jeremy Hyde NP [Primary Care Provider] - 1 Week Hang Rodrigues MD [Physician] - 1 Week Discharge Medications: New metoprolol succinate 50 mg Tablet Extended Release 24 Hr 50 mg PO DAILY Qty: 0 0RF Protocol: Hold for SBP/HR < HOLD for SBP < : 90 HOLD for HR < : 60 lisinopril 20 mg Tablet 20 mg PO DAILY Qty: 0 0RF Protocol: Hold for SBP< HOLD for SBP < : 90 finasteride 5 mg Tablet 5 mg PO DAILY Qty: 0 0RF omeprazole 40 mg capsule,delayed release(DR/EC) 40 mg PO BID Qty: 180 0RF Continued mineral oil-hydrophil petrolat Ointment 1 appl TOPICAL BID hydroxyzine HCl 25 mg Tablet 25 mg PO BEDTIME PRN (Reason: Insomnia) tadalafil 20 mg Tablet 20 mg PO DAILY capsaicin 0.1 % Cream 1 appl TOPICAL BID Rx Instructions: do not wash area for at least 30 min after application ferrous gluconate 324 mg (38 mg iron) Tablet 324 mg PO Q48H Simbrinza 1-0.2 % Drops,Suspension 1 drp OPHTHALMIC (EYE) BID Discontinued lisinopril 10 mg Tablet 10 mg PO DAILY aspirin 81 mg tablet,delayed release (DR/EC) 81 mg PO DAILY Discharge Orders: Discharge Order (Routine); Ordered 01/14/25 Ordered By: Sudeep Yang Diet: Advance to usual diet Activity on Discharge: As tolerated Stand Alone Forms: Patient Portal Discharge page Print Language: Japanese Care Plan Goals: prevent bleeding Health Concerns: gi bleed, urinary retention Plan of Treatment: med per medrec follow up with gi and urology - voiding trial in 4 weeks Assessment: see above
[2025-01-14 11:02] VITALS: BP 155/73; PULSE 78; RESP 18; TEMP 36.8; O2SAT 98
[2025-01-14 11:44] LABS: Glucose, Whole Blood 116 mg/dL (60-115)
--- NOTE | 2025-01-14 11:53 | MHC.CM.PN ---
CM met with Patient and 2 family members to discuss dc planning. Patient's first choice SNF/[facility] has no bed to offer. Patient is agreeable to a SNF search.CM will continue to follow.
--- NOTE | 2025-01-14 13:59 | MHC.CM.PN ---
Patient has been medically cleared for dc to SNF/[facility] today. Patient will dc to [facility] today at 4PM, via [facility]. CM met with Patient and his family member at bedside and addressed IMM with him(original was given to Patient and a copy has been placed on the chart).
[2025-01-14] MEDS: Acetaminophen 325 MG TABLET 650 MG PO (16:16)
== END 2025-01-14 16:00 | disposition skilled nursing facility (03) | DRG 356 ==
LOC: HO.ED 01-07 02:50 → HO.EDOVER 01-07 05:40 → HO.ICU 01-07 13:39 → HO.IMC 01-12 13:59
PROVIDERS: Internal Medicine; Internal Medicine Pulmonary Disease; Nurse Practitioner Family; Physician Assistant Medical; Radiology Vascular & Interventional Radiology; Student in an Organized Health Care Education/Training Program; Admitting Provider Student in an Organized Health Care Education/Training Program; Emergency Provider Emergency Medicine; PCP Nurse Practitioner Gerontology; Visit Provider Internal Medicine
PROC: 0DJ08ZZ Inspection of Upper Intestinal Tract, Via Natural or Artificial Opening Endoscopic (ICD-10-PCS; CPT 43235; principal; 2025-01-07 11:30)
PROC: 04L23DZ Occlusion of Gastric Artery with Intraluminal Device, Percutaneous Approach (ICD-10-PCS; principal; 2025-01-08 12:00)
DX: K92.2 Gastrointestinal hemorrhage, unspecified (principal); R57.8 Other shock; D62 Acute posthemorrhagic anemia; N17.9 Acute kidney failure, unspecified; I16.1 Hypertensive emergency; K75.81 Nonalcoholic steatohepatitis (NASH); N40.1 Benign prostatic hyperplasia with lower urinary tract symptoms; R33.8 Other retention of urine; I10 Essential (primary) hypertension; G47.33 Obstructive sleep apnea (adult) (pediatric); E66.811 Obesity, class 1; Z71.3 Dietary counseling and surveillance; Z68.36 Body mass index [BMI] 36.0-36.9, adult; Z79.899 Other long term (current) drug therapy
CPT/HCPCS: 36415; 37244; 71045; 74018; 74178; 80048; 80053; 81001; 82040; 82272; 82803; 82947; 83605; 83690; 83735; 84100; 84484; 85014; 85018; 85025; 85027; 85610; 86850; 86900; 86901; 86923; 87040; 93005; 94002; 94003; 97163; 99285; C1760; C1769; C1770; C1887; C1889; C1894; J0171; J0330; J0360; J0613; J0690; J0696; J1364; J1644; J1805; J1938; J2003; J2270; J2371; J2404; J2405; J2470; J2598; J2704; J3010; J7120; P9016; P9017; P9047; P9073; Q9967

== ENCOUNTER → 2025-01-06 23:02 | Outpatient (BNV) | payer MEDICARE, MEDICAID, SELFPAY | PROVIDERS: Admitting Provider Student in an Organized Health Care Education/Training Program; Emergency Provider Emergency Medicine; Visit Provider Internal Medicine Cardiovascular Disease | DX: R94.31 Abnormal electrocardiogram [ECG] [EKG] (principal); W19.XXXA Unspecified fall, initial encounter | CPT/HCPCS: 93010 ==

== ENCOUNTER → 2025-01-07 02:14 | Outpatient (BNV) | payer MEDICARE, MEDICAID, SELFPAY | PROVIDERS: Admitting Provider Student in an Organized Health Care Education/Training Program; Emergency Provider Emergency Medicine; Visit Provider General Practice | DX: R10.9 Unspecified abdominal pain (principal); I51.7 Cardiomegaly | CPT/HCPCS: 71045 ==

== ENCOUNTER 2025-01-07 05:23 | Outpatient (BNV) | payer MEDICARE, MEDICAID, SELFPAY | END 2025-01-12 17:40 | PROVIDERS: Admitting Provider Student in an Organized Health Care Education/Training Program; Emergency Provider Emergency Medicine; PCP Nurse Practitioner Gerontology; Visit Provider Radiology Diagnostic Radiology | DX: K59.00 Constipation, unspecified (principal) | CPT/HCPCS: 74018 ==

== ENCOUNTER 2025-01-07 05:23 | Outpatient (BNV) | payer MEDICARE, MEDICAID, SELFPAY | END 2025-01-09 13:38 | PROVIDERS: Admitting Provider Student in an Organized Health Care Education/Training Program; Emergency Provider Emergency Medicine; PCP Nurse Practitioner Gerontology; Visit Provider Radiology Vascular & Interventional Radiology | DX: Z43.0 Encounter for attention to tracheostomy (principal) | CPT/HCPCS: 71045 ==

== ENCOUNTER 2025-01-07 05:23 | Outpatient (BNV) | payer MEDICARE, MEDICAID, SELFPAY | END 2025-01-10 12:39 | PROVIDERS: Admitting Provider Student in an Organized Health Care Education/Training Program; Emergency Provider Emergency Medicine; PCP Nurse Practitioner Gerontology; Visit Provider Radiology Diagnostic Radiology | DX: K92.2 Gastrointestinal hemorrhage, unspecified (principal) | CPT/HCPCS: 74178 ==

== ENCOUNTER 2025-01-07 05:23 | Outpatient (BNV) | payer MEDICARE, MEDICAID, SELFPAY | END 2025-01-08 04:00 | PROVIDERS: Admitting Provider Student in an Organized Health Care Education/Training Program; Emergency Provider Emergency Medicine; Visit Provider Radiology Vascular & Interventional Radiology | DX: K92.2 Gastrointestinal hemorrhage, unspecified (principal) | CPT/HCPCS: 36247; 36248; 37244; 75726; 75774; 76937 ==

== ENCOUNTER → 2025-01-07 05:23 | Outpatient (BNV) | payer MEDICARE, MEDICAID, SELFPAY | PROVIDERS: Admitting Provider Student in an Organized Health Care Education/Training Program; Emergency Provider Emergency Medicine; PCP Nurse Practitioner Gerontology; Visit Provider Urology | DX: N40.1 Benign prostatic hyperplasia with lower urinary tract symptoms (principal); R33.8 Other retention of urine | CPT/HCPCS: 51702; 99222 ==

== ENCOUNTER → 2025-01-07 05:23 | Outpatient (BNV) | payer MEDICARE, MEDICAID, SELFPAY | PROVIDERS: Admitting Provider Student in an Organized Health Care Education/Training Program; Emergency Provider Emergency Medicine; Visit Provider Student in an Organized Health Care Education/Training Program | DX: K92.2 Gastrointestinal hemorrhage, unspecified (principal); D62 Acute posthemorrhagic anemia; R55 Syncope and collapse | CPT/HCPCS: 99223; 99233; 99239; 99499 ==

== ENCOUNTER → 2025-01-07 05:23 | Outpatient (BNV) | payer MEDICARE, MEDICAID, SELFPAY | PROVIDERS: Admitting Provider Student in an Organized Health Care Education/Training Program; Emergency Provider Emergency Medicine; Visit Provider Nurse Practitioner Family | DX: K92.2 Gastrointestinal hemorrhage, unspecified (principal); D50.0 Iron deficiency anemia secondary to blood loss (chronic) | CPT/HCPCS: 99291; 99292 ==

== ENCOUNTER → 2025-01-07 05:23 | Outpatient (BNV) | payer MEDICARE, MEDICAID, SELFPAY | PROVIDERS: Admitting Provider Student in an Organized Health Care Education/Training Program; Emergency Provider Emergency Medicine; Visit Provider Internal Medicine Pulmonary Disease | DX: K92.2 Gastrointestinal hemorrhage, unspecified (principal); Z90.410 Acquired total absence of pancreas; Z90.81 Acquired absence of spleen; D62 Acute posthemorrhagic anemia | CPT/HCPCS: 99232; 99291; 99292 ==

== ENCOUNTER → 2025-01-07 05:23 | Outpatient (BNV) | payer MEDICARE, MEDICAID, SELFPAY | PROVIDERS: Admitting Provider Student in an Organized Health Care Education/Training Program; Emergency Provider Emergency Medicine; PCP Nurse Practitioner Gerontology; Visit Provider Surgery | DX: K92.2 Gastrointestinal hemorrhage, unspecified (principal) | CPT/HCPCS: 99222; 99232; 99499 ==

== ENCOUNTER → 2025-01-07 05:23 | Outpatient (BNV) | payer MEDICARE, MEDICAID, SELFPAY | PROVIDERS: Admitting Provider Student in an Organized Health Care Education/Training Program; Emergency Provider Emergency Medicine; Visit Provider Internal Medicine | DX: R93.5 Abnormal findings on diagnostic imaging of other abdominal regions, including retroperitoneum (principal); D62 Acute posthemorrhagic anemia; K92.2 Gastrointestinal hemorrhage, unspecified; R55 Syncope and collapse | CPT/HCPCS: 43235; 99233; 99499 ==

== ENCOUNTER → 2025-02-02 08:35 | Outpatient (BNVA) | payer MEDICARE, MEDICAID, SELFPAY | PROVIDERS: PCP Nurse Practitioner Gerontology; Visit Provider Urology | DX: N40.1 Benign prostatic hyperplasia with lower urinary tract symptoms (principal); R33.8 Other retention of urine | CPT/HCPCS: 51700; 51798 ==

== ENCOUNTER 2025-02-23 09:29 | Outpatient (AMB) | payer MEDICARE, MEDICAID, SELFPAY ==
--- NOTE | 2025-02-23 09:30 | MHC.OFFVIS ---
Intake Visit Reasons: GI bleed Intake Note: Rancho presents as a telehealth to go over results - he states that his only concern is finding out what the Dr found in his stomach. Process Control Tech Required: No Allergies No Known Allergies Allergy (Verified 01/06/25 23:09) HPI Comments Details: 69 y.o M with PMH of obesity, fatty liver, prev GI bleeding who is following up as televisit after hospitalization in December for hemorrhagic shock from UGIB. To recap 01/07 p/w abd pain, nausea and lightheadedness and found to have acute anemia with Hb 7.4 which dropped further despite transfusion. Emergent EGD that day showed active bleeding in proximal stomach but due to poor visualization due to fresh and old blood/clots the exact source of bleeding could not be identified despite giving giving Reglan intra-procedure and waiting 30 mins. He was then admitted to ICU. Repeat EGD 01/08 again was futile. IR was then emergently consulted and pt underwent embolization of the left gastric artery and distally the right gastroepiploic artery. He was extubated 01/11 and eventually stepped down on 01/13. He required a total of 14u PRBC, 3u FFP and 4u platelets during the ICU stay. He was discharged 01/14 on high dose PPI. Pt reports a similar hx last year when he was managed at [facility]. Reports source of bleeding could not be found at that time despite an egd and colonoscopy. 02/23/25: Here for telehealth. Reports feeling good. [facility] with Hb 11 per his report. No abd pain, N,V, melena or hematochezia. Saw Dr Sawant earlier last month. Records pending. 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 [facility] Medical History (Updated 02/23/25 @ 11:08 by Kate Ballard MD) BPH (benign prostatic hyperplasia) Hypertension Upper GI bleed SCHULTZ (nonalcoholic steatohepatitis) Erectile dysfunction Chronic hepatitis C virus genotype 1a infection Surgical History (Updated 02/23/25 @ 09:32 by CHANCE Berg) History of esophagogastroduodenoscopy (EGD) History of pancreatectomy Hx of splenectomy Social History Household Members: Unknown / Unable to assess Housing: Unknown / Unable to assess Are you a primary child care worker to a significant other at home: No Comment: bilateral wrist restraints for airway safety Patient Tobacco Use Status: Never used Tobacco service: Yes Review of Systems Const All systems reviewed & are unremarkable except as noted in HPI and below Physical Exam Vital Signs: phone visit Telehealth Telehealth Telehealth Platform: Telephone Location of provider rendering services: practice address Location of patient: address on file Patient Identification confirmed using: Name, : Yes Telehealth method: voice only Patient verbally consented to treatment: Yes Patient verbally consented to billing insurance company: Yes Patient informed of any privacy concerns related to visit: Yes Minutes spent on Phone/Video with Pt.: 14 Assessment & Plan Assessment & Plan (1) Acute blood loss anemia: Code(s): D62 - Acute posthemorrhagic anemia Category: Medical (2) Hemorrhagic shock: Code(s): R57.8 - Other shock Category: Medical (3) Upper GI bleed: Code(s): K92.2 - Gastrointestinal hemorrhage, unspecified Category: Medical (4) Abnormal CT of the abdomen: Code(s): R93.5 - Abnormal findings on diagnostic imaging of other abdominal regions, including retroperitoneum Category: Medical (5) 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 Reviewed with the pt that CT appearance of remnant pancreas has little to no identifiable interface and appears to be adherent to posterior wall of the stomach. Suspect possible fistula vs eroded blood vessel. No pseudoaneurysm or recurrent tumor noted on contrasted scans. Currently stable, no recurrence of bleeding. 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
--- OUTSIDE RECORDS SUMMARY | 2025-02-23 10:10 | XMS_ITS | Encounter Summary ---
Author Organization [employer] Address [address] 7 [place] [address] Care Team Providers Care Pairer Inspector Name Role Phone Unavailable Primary Care Provider Unavailabl e Encounter Details Date Type Department Care Team (Late st Contact Info) Description 04/02/2024 Telephone [facility] ADULT DENT[facility] [address], [place] [id number] Jersey Kenney DMD [address] [place] [address] Social History Tobacco Use Types Packs/Day Years Used Date Smoking Tobacco: Never Assessed Sex and Gender Information Value Date Recorded Sex Assigned at Male 06/25/2022 10:14 AM EDT Legal Sex Male 10:14 AM EDT Gender Identity Male 06/25/2022 10:14 AM EDT Sexual Orientation Straight 06/25/2022 10 :14 AM EDT documented as of this encounter Plan of Treatment Upcoming Encounters Date Type Department Care Team (Late st Contact Info) Description 04/07/2025 10:00 AM EDT Office Visit [facility] [address] [place] [address] Pao Bassett [address] [place] [address] [phone] documented as of this encounter Visit Diagnoses Not on filedocumented in this encounter
== END 2025-02-23 14:06 | disposition home or self-care (01) ==
LOC: HO.HGI 09:29
PROVIDERS: PCP Nurse Practitioner Gerontology; Visit Provider Internal Medicine
DX: D62 Acute posthemorrhagic anemia (principal); R57.8 Other shock; K92.2 Gastrointestinal hemorrhage, unspecified; R93.5 Abnormal findings on diagnostic imaging of other abdominal regions, including retroperitoneum; Z90.410 Acquired total absence of pancreas
CPT/HCPCS: 99213; G2211

== ENCOUNTER 2025-03-10 12:48 | Outpatient (REF) | payer OTHER, SELFPAY ==
--- OUTSIDE RECORDS SUMMARY | 2025-03-03 07:00 | XMS_ITS | Encounter Summary ---
Author Name [facility] Organization [facility] Address [address] [place] [address] Care Team Providers Care Neck Band Setter Name Role Phone BRYANNA COUCH Primary Care [...] Patient's Relationship to Policy [place] MEDICAID MEDICAID [facility] Aug 26, 2020 MEDICAI D [id number] KELSEY TATE PATIENT Selected Encounter This section includes the information on record at OR for the Encounter. Date/Time Encounter Type Encounter Description Reason Provider Source Mar 03, 2025 11:00 AM OFFICE O/P EST LOW 20 MIN PODIATRY ICD-10-CM L60.3 Nail dystrophy ERICA SHELLEY Nasir Encounter Template Text not used by VA Assessments - Encounter Diagnoses This section includes the primary and secondary diagnoses documented for the Encounter. Date/Time Primary/Secondary Diagnosis Diagnosis Name Provider Source Mar 03, 2025 11:26 AM PRIMARY Nail dystrophy ERICA SHELLEY MOBILE Mar 03, 2025 11:26 AM SECONDARY Corns and callosities ERICA SHELLEY ADRIANA Mar 03, 2025 11:26 AM SECONDARY Ingrowing nail ERICA SHELLEY MOBILE Mar 03, 2025 11:26 AM SECONDARY Pain in left toe(s) ERICA SHELLEY MOBILE Mar 03, 2025 11:26 AM SECONDARY Pain in right toe(s) ERICA SHELLEY MOBILE Plan of Treatment: Future Appointments (+ 6 months) and Future Tests (+/- 45 days) The Plan of Treatment section includes future care activities for the patient from all OR treatmentfacilities. This section includes future appointments and future orders which are active, pending or scheduled. Future Appointments This section includes appointments that were scheduled to occur 6 months from the date of the Encounter, up to a maximum of 20 appointments. The data comes from all OR treatment facilities. Appointment Date/Time Appointment Type Appointme Facility Name Mar 10, 2025 09:00 AM AMBULATORY - PSYCHIATRY [facility] Mar 10, 2025 10:00 AM AMBULATORY - PSYCHIATRY [facility] Mar 22, 2025 10:30 AM AMBULATORY - MEDICINE [facility] Mar 30, 2025 02:00 PM AMBULATORY - NONE [facility] Jun 30, 2025 11:30 AM AMBULATORY - REHAB MEDICIN [facility] Jul 07, 2025 11:00 AM AMBULATORY - MEDICINE [facility] Aug 05, 2025 01:00 PM AMBULATORY - MEDICINE [place] [facility] Lab Results: +/- 30 days of the encounter This section includes the Chemistry and Hematology Lab Results on record with OR for the patient. Radiology Reports and Pathology Reports are provided separately, in subsequent sections. Lab Results This section contains the Chemistry/Hematology Results that were resulted 30 days before or 30 daysafter the date of the Encounter. Date/Time Source Result Type Result - Unit Interpretation Reference Range Specimen Type Comment Feb 22, 2025 10:27 AM MOBILE FERRITIN SERUM Specimen Type: SERUM No comment entered. Ordering Provider: FRANNIE AGUERO Report Released Date/Time: Feb 19, 2025 03:06 PM Reporting [facility]: [facility] [address] [address] Performing Lab: [address] [address] FERRITIN 31.8 ng/mL 21.8-274.7 Feb 22, 2025 10:27 AM MOBILE IRON & TIBC PANEL SERUM Specimen Type : SERUM No comment entered. Ordering Provider: FRANNIE AGUERO Report Released Date/Time: Feb 19, 2025 03:06 PM Reporting Lab: [address] [address] Performing Lab: [address] [address] TIBC 367 ug/dL 204-475 IRON 46 ug/dL L 65-175 Transferrin Saturation 12.5 L 15-45 Transferrin (TRF) 278 mg/dL 180-382 Feb 22, 2025 10:27 AM MOBILE CBC AND DIFF (AUTO) BLOOD Specimen Ty pe: BLOOD No comment entered. Ordering Provider: FRANNIE AGUERO Report Released Date/Time: Feb 19, 2025 03:06 PM Reporting Lab: [address] [address] Performing Lab: [address] [address] WBC 5.97 10*3/uL 4.50-11.00 RBC 4.01 10*6/uL [...] 10*3/uL 0.00-0.00 Feb 22, 2025 10:27 AM [facility] BASIC METABOLIC PANEL (fasting) SERUM Specime n Type: SERUM No comment entered. Ordering Provider: MASON CHRISTOPHER Report Released Date/Time: Jan 26, 2025 01:53 PM Reporting Lab: [facility] [address] [facility] [address] Performing Lab: [facility] [address] [facility] [address] UREA NITROGEN 16 mg/dL 8-26 GLUCOSE 103 mg/dL H 65-100 SODIUM 140 mmol/L 136-145 POTASSIUM 4.1 mmol/L 3.5-5.1 CHLORIDE 110 mmol/L H 98-107 CO2 23 meq/L 23-31 CALCIUM 8.8 mg/dL 8.8-10 CREATININE, Serum 0.81 mg/dL 0.72-1.25 eGFR(CKD-EPI 2020) >90 mL/min >60 Social History: Smoking Status (Most current) and Tobacco Use (All prior to encounter date) This section includes the most current, and the historical, smoking and tobacco- related health factors from the OR facility where the Encounter took place. Current Smoking Status This section includes the most current smoking, or tobacco-related health factor, from the OR facility where the Encounter took place. Date/Time Current Smoking Status Comment Facil ity Nov 26, 2023 02:30 PM OR-TOBACCO QUIT < 1 YEAR MOBILE Tobacco Use History This section includes a history of the smoking, or tobacco-related health factors, that were collected on or before the date of the Encounter. The data comes from the OR facility where the Encounter took place. Date/Time Smoking Status/Tobacco Use Comment F acility Nov 26, 2023 02:30 PM OR-TOBACCO QUIT < 1 YEAR MOBILE Dec 04, 2022 02:00 PM VA-TOBACCO DOESNT USE WI 30 MIN WAKEUP MOBILE Dec 04, 2022 02:00 PM VA-TOBACCO USE 30 YEARS OR MORE MOBILE Dec 04, 2022 02:00 PM VA-TOBACCO USE ADVICE MOBILE Dec 04, 2022 02:00 PM VA-TOBACCO USE MANAGER LAW NO MOBILE Dec 04, 2022 02:00 PM VA-TOBACCO USE MED NOTIFY [facility] Dec 04, 2022 02:00 PM VA-TOBACCO USER EVERY DAY MOBILE Sep 20, 2021 01:30 PM VA-TOBACCO DOESNT USE WI [address] [facility] Sep 20, 2021 01:30 PM VA-TOBACCO USE > 15 LESS THAN 30 YEARS MOBILE Sep 20, 2021 01:30 PM VA-TOBACCO USE ADVICE MOBILE Sep 20, 2021 01:30 PM VA-TOBACCO USE MANAGER LAW YES MOBILE Sep 20, 2021 01:30 PM VA-TOBACCO USE MED NOTIFY [facility] Sep 20, 2021 01:30 PM VA-TOBACCO USER EVERY DAY MOBILE Oct 06, 2020 10:30 AM VA-TOBACCO USE > 15 LESS THAN 30 YEARS MOBILE Oct 06, 2020 10:30 AM VA-TOBACCO USE ADVICE MOBILE Oct 06, 2020 10:30 AM VA-TOBACCO USE MANAGER LAW NO MOBILE Oct 06, 2020 10:30 AM VA-TOBACCO USE MED NO MOBILE Oct 06, 2020 10:30 AM VA-TOBACCO USE WI 30 MIN OF WAKE UP MOBILE Oct 06, 2020 10:30 AM VA-TOBACCO USER EVERY DAY MOBILE Nov 17, 2018 10:24 AM VA-TOBACCO DOESNT USE WI [address] [facility] Nov 17, 2018 10:24 AM VA-TOBACCO USE 30 YEARS OR MORE MOBILE Nov 17, 2018 10:24 AM VA-TOBACCO USE ADVICE MOBILE Nov 17, 2018 10:24 AM VA-TOBACCO USE MANAGER LAW NO MOBILE Nov 17, 2018 10:24 AM VA-TOBACCO USE MED NO MOBILE Nov 17, 2018 10:24 AM VA-TOBACCO USER SOME DAYS MOBILE Nov 29, 2017 10:45 AM CURRENT SMOKER 1/2 ppd MOBILE Nov 29, 2017 10:45 AM V1-PT READY TO QUIT TOBACCO USE MOBILE Advance Directives: All historical and current Section Date Range: From patient's date of to the date document was created. This section includes ALL of a patient's completed or amended OR Advance and Rescinded Directives. The entries below indicate that a directive exists for the patient, but an actual copy is not included with this document. The data comes from all OR facilities. Date Advance Directives Provider Source January [...] the Encounter. The data comes from all OR treatment facilities. Date/Time Radiology Report Provider Source Feb 23, 2025 01:47 PM KNEE 3 VIEWS (LEFT): JASMIN TATE A [id number] -1955 M Exm Date: FEB 23, 2025@13:47 Req Phys: VIOLETTA THORNTON Loc: [facility] 1 (Req'g Loc) Img Loc: [facility] [place] [address] (Case 170 COMPLETE) KNEE 3 VIEWS (LEFT) (RAD Detailed) CPT:44467 Reason for Study: left knee pain Clinical History: Report Status: Verified Date Reported: FEB 23, 2025 Date Verified: FEB 23, 2025 Gauntlet Pairer E-Sig:/ES/VIOLETTA KEE Report: X-RAY EXAM OF KNEE [...] Primary Interpreting Staff: VIOLETTA KEE, Staff Physician (Gauntlet Pairer) /VIOLETTA KUMAR [facility] Feb 22, 2025 09:59 AM SHOULDER,COMPLETE(RIGHT): JASMIN TATE [id number] -1955 M Exm Date: FEB 22, 2025@09:59 Req Phys: FRANNIE AGUERO Loc: [facility] [employer] [employer] (Req'g Loc) Img Loc: [facility] 1 Service: [place] [address] (Case 66 COMPLETE) SHOULDER,COMPLETE(RIGHT) (RAD Detailed) CPT:54291 Proc Modifiers : RIGHT Reason for Study: bialteral shoulder pain Clinical History: Report Status: Verified Date Reported: FEB 22, 2025 Date Verified: FEB 22, 2025 Gauntlet Pairer E-Sig:/ES/DIRK HOLLAND Report: Accession number: [id number], [id number] Exam: X-RAY EXAM OF SHOULDER, X-RAY EXAM [...] Primary Interpreting Staff: DIRK HOLLAND, Staff Physician (Gauntlet Pairer) / DIRK HOLLAND [facility] Feb 22, 2025 09:59 AM SHOULDER,COMPLETE(LEFT): JASMIN TATE [id number] 1955 M Exm Date: FEB 22, 2025@09:59 Req Phys: FRANNIE AGUERO Loc: [facility] [employer] (Req'g Loc) Img Loc: [facility] 1 Service: [place] [address] (Case 67 COMPLETE) SHOULDER,COMPLETE(LEFT) (RAD Detailed) CPT:71300 Proc Modifiers : LEFT Reason for Study: bialteral shoulder pain Clinical History: Report Status: Verified Date Reported: FEB 22, 2025 Date Verified: FEB 22, 2025 Gauntlet Pairer E-Sig:/ES/DIRK HOLLAND Report: Accession number: [id number], [id number] Exam: X-RAY EXAM OF SHOULDER, X-RAY EXAM [...] Primary Interpreting Staff: DIRK HOLLAND, Staff Physician (Gauntlet Pairer) / DIRK HOLLAND [facility] Encounter Notes: All associated encounter notes This section contains the clinical notes associated to the Encounter. Date/Time Encounter Note(s) Provider Source Mar 03, 2025 08:50 AM PODIATRY NOTE: LOCAL TITLE: PODIATRY NOTE STANDARD TITLE: PODIATRY NOTE DATE OF NOTE: MAR 03, 2025@08:50 ENTRY DATE: MAR 03, 2025@08:50:49 AUTHOR: ERICA SHELLEY COSIGNER: URGENCY: STATUS: COMPLETED NOTE: HAS RECEIVED BOTH COVID VACCINE DOSES +2 BOOSTERS AT [facility] LAST SEEN FOR TREATMENT: 11/05/2024 S: Pt. is a 69 yo alert WDWN MALE who presents for CONTINUED podiatric examination & CARE for treatment of a presenting complaint of painful THICKENED ingrown toenails. Patient has been referred by: DR. BARROS Location of symptoms are: NAILS: 1& 5 RT AND 1-4-5 LEFT WITH HALLUX NAILS ESPECIALLY THICKENED AND DOES NOT RECALL TRAUMA Onset of symptoms has been several MONTHS due to this being a recurrent condition that has been exacerbating over the past few WEEKS. Duration of symptoms is INTEMITTENT with periods of exacerbation and remission. Description of symptoms is of an aching nature WITH PAIN LEVEL 5-6 AT IT'S WORST. Contributing factors are: shoes and increased activity. PMH: Active problems - Computerized Problem List is the source for the following: * NOTE: REVIEWED ABOVE NOTING Non-contributory TO THE CC . *NOTE: PLEASE SEE PROBLEM LIST TEMPLATE FOR COMPLETE LIST NEEDED. Family History: Non-contributory Social History: N/A *NOTE: DENIES ANY RECENT CHANGES IN MEDS UPON QUESTIONING TODAY-SEE RECONCILIATION PERFORMED THIS DATE BELOW TOBACCO USE = 4 CIGARETTES PER DAY AND CEASING Allergies:Patient has answered NKA Previous Surgery/Hospitalization: N/A TO CC . HEIGHT:268 lb [121.56 kg] (09/20/2021 13:31) WEIGHT:72 in [182.9 cm] (09/20/2021 13:31) REVIEW OF SYSTEMS: DEFERRED BEING NON-CONTRIBUTORY TO THE CC & I HAVE REVIEWED THE PCP NOTES & PMH WELL. O: DERMATOLOGICAL: Exam reveals skin color,TEMP & text to be WNL. There is normal distribution of hair noted. Nails are thickened yellow-brown discolored and displaying flakiness, crumbling, sub-ungual debris and rubor in the affected nail grooves. The affected nails are 1&5 RT & 1-4-5 LT. There are no superficial painful hyperkeratotic lesions noted at this time. There are no rashes, ulcers, indurations or nodules noted. VASCULAR: Exam reveals DP & PT pulses to be +2 equal & symmetrical bilateral. CFT is <3 sec x 10. There are no superficial varices noted and there is no edema noted. MUSCULOSKELETAL: Exam reveals muscle strength and tone to be equal & symmetrical bilaterally & WNL for an individual of this age and present physical-medical condition. There is pain free ROM at all joints distal to and including the ankle. NEUROLOGICAL: Exam reveals S/D, vibratory, light touch & proprioception sensations to be equal & symmetrical bilaterally & WNL for an individual of this age and present physical-medical status. Protective sensation utilizing a Canova-Isaac lOg monofilament is 10/10 bilateral. BIOMECHANICAL: Exam is deferred at this time as BEING non-contributory to the cc . A: Clinical Impression is painful onychocryptic dystrophic nails in the presence of PAIN HALLUX BILAT & ONYCHOCRYPTIC NAILS 2-3-4-5 BILAT AND HYPEKERATOSIS PERIPHERY OF HEELS BILAT. P: Treatment consists of debridement-reduction of HALLUX nails via manual & electric means with excision of the offending nail borders and thinning of the nail plates to the point of imminent bleeding & ADDITIONAL CARE CONSISTS OF DEBRIDEMENT VIA ROTARY POWER DISC TO DIMINISH HEEL HYPERKERATOSIS BILATERAL & TRIMMING REDUCTION OF LESSER DIGIT NAILS IN A SIMILAR FASHION. All care rendered without complications & the patient is progressing well after podiatric care this date and will be scheduled for periodic podiatric care in an attempt to prevent future complications due to the underlying medical conditions. Treatment by a non-professional could be extremely hazardous to the patient's wellbeing due to the underlying medical conditions. *DISCUSSED NEW PROTOCOLS RTC: 16 WEEKS (07/07 @ 11AM) I DISCUSSED THE FINDINGS & PLAN WITH PATIENT (UNCHANGED SINCE PREVIOUS VISIT) & PATIENT AGREES AND UNDERSTANDS PLAN DISCUSSED HIS RECENT HOSPITALIZATION FOR 2 WEEKS WITH A GIBLEED REQURING 14 PINTS OF BLODD AND IS DOING WELL NOW BUT STILL RECOVERING AND NOW LIVING WITH HIS DAUGHTER FOR SAFETY Medication Reconciliation: PERFORMED TODAY - SEE BELOW. Outpatient: Has the patient been taking medications as documented in the EMLR? YES: The patient has been taking medications as documented in the EMLR. Essential Medication List for Review used to complete this medication reconciliation. INCLUDED IN THIS LIST: Alphabetical list of active outpatient prescriptions dispensed from this VA (local) and dispensed from another VA or DoD facility (remote) as well as [...] whether with a VA or non-VA provider. JLV Link Data on this list may not be complete. Please check JLV. Allergies/ADRs (Tool #5) FACILITY ALLERGY/ADR -------- No Remote Allergy/ADR Data available for this patient [facility] No Known Allergies Med [facility] (Tool #1) INCLUDED IN THIS LIST: Alphabetical list of active outpatient prescriptions dispensed from this OR (local) and dispensed from another OR or [facility] facility (remote) as well as inpatient orders (local pending and active), local clinic medications, locally documented non-VA medications, and local prescriptions that have or been discontinued in the past 90 days. Non-VA Meds Last Documented On: Nov 05, 2024 NOTE The display of VA prescriptions dispensed from another OR or DoD facility (remote) is limited to active outpatient prescription entries matched to National Drug File at the originating site and may not include some items such as investigational drugs, compounds, etc. NOT INCLUDED IN THIS LIST: Medications self-entered by the patient into personal health records (i.e. [employer]) are NOT included in this list. Non-VA medications documented outside this OR, remote inpatient orders (regardless of status) and remote clinic medications are NOT included in this list. The patient and provider must always discuss medications the patient is taking, regardless of where the medication was dispensed or obtained. OUTPT BRIMONIDINE 0.2%/BRINZOLAMID 1% OPH SUSP (Status = ) INSTILL 1 DROP INTO EACH EYE TWICE DAILY FOR WIDE-ANGLE GLAUCOMA Rx# [id number] Last Released: 12/28/24 Qty/Days Supply: Rx Expiration Date: 02/03/25 Refills Remainin Indication: FOR WIDE-ANGLE GLAUCOMA OUTPT CAPSAICIN 0.1% CREAM (Status = Active) APPLY A SMALL AMOUNT TOPICALLY TWICE DAILY NEEDED FOR LOCALIZED PAIN APPLIED TO LEFT KNEE TWICE DAILY Rx# [id number] Last Released: 10/06/24 Qty/Days Supply: 120/60 Rx Expiration Date: 09/24/25 Refills Remainin Indication: FOR LOCALIZED PAIN Non-VA CYANOCOBALAMIN TAB TAKE BY MOUTH Non-VA FERROUS GLUCONATE 324MG TAB TAKE ONE TABLET BY MOUTH EVERY OTHER DAY Non-VA medication not recommended by VA provider. Indication: TO SUPPLEMENT IRON OUTPT FINASTERIDE 5MG TAB (Status = Active) TAKE ONE TABLET BY MOUTH ONCE DAILY FOR ENLARGED PROSTATE Rx# [id number] Last Released: 01/23/25 Qty/Days Supply: Rx Expiration Date: 01/22/26 Refills Remainin Indication: FOR ENLARGED PROSTATE OUTPT HYALURONATE NA (DUROLANE)20MG/ML SYR 3ML (Status = Discontinued) INJECT 60MG INTRA-ARTICULAR ONE TIME RIGHT KNEE Rx# [id number] Last Released: 09/16/24 Qty/Days Supply: Rx Expiration Date: 02/24/25 Refills Remainin Indication: OSTEOARTHRITIS OF THE KNEE OUTPT HYALURONATE NA (DUROLANE)20MG/ML SYR 3ML (Status = On Hold) INJECT 60MG INTRA-ARTICULAR ONE TIME RIGHT KNEE Rx# [id number] Last Released: Qt Supply: Rx Expiration Date: 02/20/26 Refills Remainin Indication: OSTEOARTHRITIS OF THE KNEE OUTPT HYDROPHILIC (EQV AQUAPHOR) TOP OINT (Status = Active) APPLY LIBERAL AMOUNT TOPICALLY TWICE DAILY NEEDED FOR DRY SKIN Rx# [id number] Last Released: 10/10/24 Qty/Days Supply: Rx Expiration Date: 10/10/25 Refills Remainin Indication: FOR DRY SKIN OUTPT HYDROXYZINE HCL 25MG TAB (Status = Discontinued) TAKE ONE TABLET BY MOUTH AT BEDTIME NEEDED FOR INSOMNIA - NOTE DOSE Rx# [id number] Last Released: 12/25/24 Qty/Days Supply: Rx Expiration Date: 10/15/25 Refills Remainin Indication: INSOMNIA OUTPT HYDROXYZINE HCL 25MG TAB (Status = Active) TAKE ONE TABLET BY MOUTH AT BEDTIME NEEDED FOR INSOMNIA - NOTE DOSE Rx# [id number] Last Released: 01/23/25 Qty/Days Supply: Rx Expiration Date: 01/22/26 Refills Remainin Indication: INSOMNIA OUTPT LISINOPRIL 10MG TAB (Status = Discontinued) TAKE ONE TABLET BY MOUTH ONCE DAILY TO CONTROL BLOOD PRESSURE Rx# [id number] Last Released: 11/23/24 Qty/Days Supply: Rx Expiration Date: 11/20/25 Refills Remainin Indication: FOR HIGH BLOOD PRESSURE OUTPT LISINOPRIL 10MG TAB (Status = Discontinued) TAKE ONE TABLET BY MOUTH ONCE DAILY TO CONTROL BLOOD PRESSURE Rx# [id number] Last Released: 01/23/25 Qty/Days Supply: Rx Expiration Date: 01/22/26 Refills Remainin Indication: FOR HIGH BLOOD PRESSURE OUTPT LISINOPRIL 20MG TAB (Status = Active) TAKE ONE TABLET BY MOUTH ONCE DAILY TO CONTROL BLOOD PRESSURE Rx# [id number] Last Released: 01/28/25 Qty/Days Supply: Rx Expiration Date: 01/27/26 Refills Remainin Indication: FOR HIGH BLOOD PRESSURE OUTPT METOPROLOL SUCCINATE 50MG SA TAB (Status = Active/Suspended) TAKE ONE TABLET BY MOUTH ONCE DAILY FOR BLOOD PRESSURE/HEART Rx# [id number] Last Released: 01/23/25 Qty/Days Supply: Rx Expiration Date: 01/22/26 Refills Remainin Indication: FOR HIGH BLOOD PRESSURE OUTPT TADALAFIL 20MG TAB (Status = Discontinued) TAKE ONE TABLET BY MOUTH ONCE DAILY Rx# [id number] Last Released: 12/01/24 Qty/Days Supply: Rx Expiration Date: 11/25/25 Refills Remainin OUTPT TADALAFIL 20MG TAB (Status = Active) TAKE ONE TABLET BY MOUTH ONCE DAILY FOR ERECTILE DYSFUNCTION Rx# [id number] Last Released: 02/17/25 Qty/Days Supply: Rx Expiration Date: 01/22/26 Refills Remainin Indication: FOR ERECTILE DYSFUNCTION SUPPLIES /lyndon/ ERICA SHELLEY DPM PLANT CYTOLOGIST Signed: 03/03/2025 11:27 ERICA SHELLEYFIELD
--- NOTE | ~2025-03-10 | MR_ITS ---
EXAMINATION: MR ABDOMEN WITHOUT AND WITH CONTRAST MRCP. CLINICAL INFORMATION: Status post pancreatectomy and splenectomy. History of GI bleed. COMPARISON: Correlated to CT dated January 10, 2025. TECHNIQUE: MR abdomen was performed without and with use of 10.0 mL intravenous [(Gadavist) gadolinium contrast. Postcontrast images are performed in multiphase dynamic sequences. Imaging was performed in 3 planes. No reported immediate complications. MRCP protocol. FINDINGS: LUNG BASES: Atelectasis versus infiltrate lung bases. No enhancing mass. LIVER, GALLBLADDER, AND BILIARY TREE: Liver measures 15 cm. There is a 1.8 cm peripheral, discontinuous, centripetal enhancing hypointense T1 and hyperintense T2 lesion in the anterior right hepatic lobe and the posterior lower right hepatic lobe The main portal veins, hepatic veins and intrahepatic portion of the IVC are patent. Gallbladder is contracted with heterogeneous fundus. No pericholecystic fluid collection or gallbladder wall thickening. Common bile duct measures 4 m. PANCREAS: Status post resection of the pancreatic tail and distal body segment. The head of the pancreas, uncinate process and proximal body of the pancreas demonstrated no enhancing lesion. There is no main pancreatic ductal dilatation. There is no peripancreatic fluid collection. SPLEEN: Status post splenectomy ADRENAL GLANDS: No nodular lesion. KIDNEYS AND URETERS: Right kidney: There is a 9 mm thin septated cystic lesion at the posterior lower pole midportion junction. No hydronephrosis. Left kidney: There is a 16 mm thick septated nonenhancing cystic lesion at the corticomedullary junction of the posterior upper pole. There is a 3 mm cyst and at the posterior lower pole. No hydronephrosis. GASTROINTESTINAL TRACT: Abundant stool, large intestine. Small and hernia. Abundant food contents in the stomach.. ABDOMINAL WALL: There is disc abdominal rectus muscles in the periumbilical region. Small fat-containing umbilical hernia. LYMPH NODES: Nonspecific mildly prominent mesenteric and retroperitoneum. VASCULAR: No aneurysm or dissection, abdominal aorta. OSSEOUS STRUCTURES: Multilevel thoracolumbar spondylosis more conspicuous at T12-L1 L4-5 and L5-S1 levels. 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 Septated hepatic cyst versus less likely hemangiomata, right hepatic lobe. The exam is not designed for delayed phase. Electronically signed by: Pankaj Quezada MD 03/10/2025 02:21 PM EDT
--- OUTSIDE RECORDS SUMMARY | 2025-03-10 13:46 | XMS_ITS | Encounter Summary ---
Author Organization [employer] Address [address] [place] [address] Care Team Providers Care Strap Sewer Name Role Phone Unavailable Primary Care Provider Unavailabl e Encounter Details Date Type Department Care Team (Late st Contact Info) Description 04/02/2024 Telephone [facility] [address], [place] [phone] Jersey Kenney DMD [address] [place] [address] Social History Tobacco Use Types Packs/Day Years [...] Description 04/07/2025 10:00 AM EDT Office Visit [facility] [address] [place] [address] Pao Bassett [address] [place] [address] [phone] documented as of this encounter Visit Diagnoses Not on filedocumented in this encounter
--- OUTSIDE RECORDS SUMMARY | 2025-03-10 13:47 | XMS_ITS ---
Author Name [facility] Organization Unknown Encounters Encounter Type Encounter Reason Primary Diagnosis Location Date Ambulatory [facility] ([facility] 08/06/2022 Care Team Organization Name Specialty Phone Email Start Date End Da te [facility] ([facility])
== END 2025-03-10 12:49 | disposition home or self-care (01) ==
LOC: HO.MRI 12:48
PROVIDERS: PCP Nurse Practitioner Gerontology; Visit Provider Internal Medicine
DX: Z90.410 Acquired total absence of pancreas (principal)
CPT/HCPCS: 74183; A9585

== ENCOUNTER → 2025-03-10 12:55 | Outpatient (BNV) | payer MEDICARE, MEDICAID, SELFPAY | PROVIDERS: PCP Nurse Practitioner Gerontology; Visit Provider Radiology Diagnostic Radiology | DX: N28.1 Cyst of kidney, acquired (principal) | CPT/HCPCS: 74183 ==

== ENCOUNTER 2025-04-02 15:25 | Inpatient (IN) | payer MEDICARE, OTHER, SELFPAY ==
--- NOTE | ~2025-04-02 | XR_ITS ---
CLINICAL HISTORY: NGT placement 1 view chest x-ray Comparison: CR - XR CHEST 1V - 01/09/25 13:43 EDT Findings: Enteric tube is demonstrated with the tip approximately 5 cm distal to level of gastroesophageal junction. 10 cm advancement is recommended. Heart appears enlarged. No definite consolidation, significant pleural effusion or pneumothorax. Linear left basilar opacity likely atelectasis or scarring. No acute fracture. IMPRESSION: 1. Enteric tube with the tip approximately 5 cm distal to level of gastroesophageal junction. Approximately 10 cm advancement is recommended. 2. Left basilar atelectasis versus scarring. This document has been electronically signed by: Jess Ballard MD on 04/02/2025 23:42:53
--- NOTE | ~2025-04-02 | XR_ITS ---
CLINICAL HISTORY: ng tube placement 1 view chest x-ray Comparison: CR - XR CHEST 1V - 04/02/25 22:58 EDT Findings: Bilateral lower lobe opacities, left greater than right. No pneumothorax or large pleural effusion. Stable cardiomediastinal silhouette. No acute fracture. IMPRESSION: The enteric tube courses into the stomach. A portion is coiled in the stomach before continuing distally across the midline with tip outside the field of view, potentially in the distal stomach or proximal duodenum. Suggest an abdominal radiograph for better visualization. This document has been electronically signed by: Aarti Basilio DO on 04/03/2025 02:05:39
--- NOTE | ~2025-04-02 | NM_ITS ---
CLINICAL HISTORY: ?acute cholecystitis NM HIDA SCAN Comparison: US/SR - US ABDOMEN LIMITED - 04/05/25 07:43 EDT Technique: ?acute cholecystitis (Hx) / Statics (DICOM Hx) (DICOM Hx) Findings: Normal liver uptake, distribution, and excretion. Gallbladder is not visualized up to 4 hours after isotope administration. Central bile ducts and small bowel are visualized at the appropriate intervals. No enterogastric reflux of radiotracer. IMPRESSION: Nonvisualization of the gallbladder consistent with acute cholecystitis. This document has been electronically signed by: Aarti Basilio DO on 04/06/2025 18:20:17
--- NOTE | ~2025-04-02 | CT_ITS ---
CLINICAL HISTORY: LUQ pain, n v d CT abdomen and pelvis with contrast Comparison: CT - CT GI BLEED ABD PEL WO/W IVCON - 01/10/25 12:40 EDT Findings: Left basilar opacities most suggestive of scarring. There are 2 right lung 2-3 mm nodules seen on images 1/98 and 4/98 series 3. No pleural effusion. The gallbladder is unremarkable. No biliary ductal dilatation. 1.5 cm and 1 cm hepatic hypodense lesions likely cysts. Previous splenectomy. Pancreas is within normal limits. Right adrenal is unremarkable. Mild left adrenal thickening. Enhancement of bilateral kidneys with no ureteral stones and no hydronephrosis or hydroureter. Small vague bilateral renal lesions visualized measuring 1.1 cm at the posterior aspect left kidney and 1 cm at posterolateral aspect of right renal lower pole. These are nonspecific but stable. Postoperative changes of the stomach. There is an air-fluid level in the stomach. There are multiple dilated fluid-filled small bowel loops in proximal and mid small bowel with air-fluid levels. Distal small bowel is decompressed. No pneumatosis or pneumoperitoneum. Minimal free fluid anterior to the liver. No loculated fluid collection. Few colonic diverticula with no evidence of acute diverticulitis. Appendix is unremarkable. Prostate is enlarged measuring 5.6 cm x 5.8 cm. Correlate with PSA level. Mild urinary bladder wall thickening, cystitis not excluded. 1.2 cm lymph node/nodular structure in the pelvis to the right of the urinary bladder seen on image 83/98 series 3. No aneurysm of the abdominal aorta. No acute fracture. Degenerative changes of the spine and L4-5 and L5-S1 facet arthropathy. IMPRESSION: 1. Findings suspicious for mid to distal small bowel obstruction. No pneumatosis or pneumoperitoneum. 2. Minimal free fluid anterior to the liver. 3. Additional findings as described. This document has been electronically signed by: Jess Ballard MD on 04/02/2025 20:07:00
--- NOTE | ~2025-04-02 | CT_ITS ---
CLINICAL HISTORY: abdominal distention post surgery CT abdomen and pelvis without contrast Comparison: CT/SR - CT ABDOMEN PELVIS W IV CON - 04/04/25 19:19 EDT Findings: Small right pleural effusion is present with mild adjacent atelectasis, new since prior exam. Mild linear atelectasis is seen in the left lower lobe. 1.3 cm and 1.0 cm right hepatic cysts are present. There has been interval cholecystectomy with placement of a surgical drain in the gallbladder fossa. Small amount of fluid and air are seen in the gallbladder fossa. Mild perihepatic ascites is also present. There has been prior distal pancreatectomy and splenectomy. Mild nonspecific bilateral perinephric stranding is present. 1.6 cm left renal density is incompletely characterized. The noncontrast appearance of bilateral adrenal glands is within normal limits. Surgical material is seen adjacent to the stomach. The appendix appears normal. Several mildly dilated loops of small bowel are seen containing air-fluid levels with no definite focal transition point. The urinary bladder appears normal. Prostate gland is enlarged in size with a transverse diameter of 6.0 cm. There is no adenopathy. Subcutaneous edema is seen in the abdominopelvic wall. Several small foci of air are seen in the left abdominal wall and right abdominal wall from recent surgery. Abdominal wall surgical clips are also noted. No acute osseous abnormality is identified. IMPRESSION: 1. Interval cholecystectomy with placement of a surgical drain in the gallbladder fossa. Small amount of fluid and air are seen in the gallbladder fossa. 2. Several mildly dilated loops of small bowel containing air-fluid levels with no definite focal transition point, likely secondary to an ileus. 3. Mild perihepatic ascites. 4. 1.6 cm left renal density, which is incompletely characterized. Recommend nonemergent CT renal mass protocol for further evaluation. 5. Interval development of a small right pleural effusion. 6. Other findings as described. This document has been electronically signed by: Ivette Crane on 04/10/2025 12:58:28
--- NOTE | ~2025-04-02 | US_ITS ---
EXAMINATION: US ABDOMEN LIMITED HISTORY: Right-sided abdominal pain TECHNIQUE: Real-time grayscale ultrasound imaging of the right upper quadrant was performed and images were reviewed. COMPARISON: Comparison is made with the prior examination dated 03/15/2020. FINDINGS: Liver: The liver is normal in size. The liver demonstrates normal homogeneous echotexture. There is a 1.5 x 1.3 x 1.3 cm cyst in the right lobe. No intrahepatic biliary ductal dilatation is identified. There is normal hepatopedal flow in the portal vein. Gallbladder and biliary tree: There is echogenic bile within the gallbladder and a probable calculus in the gallbladder neck. The gallbladder appears contracted which likely explains wall thickening. The technologist reports a positive sonographic Lim sign. The common bile duct is normal in caliber measuring 3 mm. Right Kidney: The right kidney measures 14.1 cm in length. The right kidney is unremarkable, without evidence of masses, hydronephrosis, or calculi. Pancreas: The pancreas is obscured by bowel gas. Abdominal aorta and inferior vena cava: The visualized portions of the abdominal aorta and inferior vena cava are normal in caliber. There is no free fluid in the right upper quadrant. US/US abdomen limited IMPRESSION: Cholelithiasis and gallbladder sludge with a positive sonographic Lim sign. Findings are compatible with acute cholecystitis. Findings were sent to Dr. Yoon Navas by secure text message on 04/05/2025 at 8:54 AM and acknowledged at 8:56 AM. Electronically signed by: Raymundo Clayton MD 04/05/2025 08:57 AM EDT
--- NOTE | ~2025-04-02 | CT_ITS ---
CLINICAL HISTORY: increased abdominal pain CT abdomen and pelvis with contrast Comparison: CT of the abdomen and pelvis from 04/02/2025 Findings: Mild bibasilar atelectasis/pneumonitis with scarring in the emphysematous changes. Mild bronchiectasis also noted in the left lower lobe (imaged 9 of series 2). Trace right pleural fluid and small pericardial effusion with mild cardiomegaly. No significant change in low-density lesions in the liver. Mild periportal edema and now present. Gallbladder wall thickening and adjacent fluid are nonspecific and concerning for cholecystitis. This may be secondary to adjacent inflammation such as colitis of the hepatic flexure. Postprocedural changes from upper abdominal procedure with likely partial pancreatic tail resection. Spleen is absent. Mild adrenal hyperplasia noted. No definite change indeterminate 1.5 cm lesion of the left kidney or indeterminate 1 cm lesion of the lower pole of the right kidney. No new or worsening lymphadenopathy. No small bowel obstruction. Imaged appendix is within normal limits (imaged 61 of series 2). Wall thickening of the large intestine is nonspecific and may reflect colitis, including hepatic flexure and distally. The prostate gland measures 6.5 cm transverse. Mild wall thickening of the urinary bladder is noted. Small fat containing inguinal hernias. Moderate osteoarthritis of the hips. Partial ankylosis of the SI joints. Degenerative changes include multifocal facet arthropathy of the lumbar spine. Disc bulge at L4-L5 with mild spinal stenosis by CT.. No hydronephrosis. Mild perinephric stranding remains nonspecific, right worse than left. IMPRESSION: 1. Wall thickening of the large intestine is nonspecific and concerning for colitis, including hepatic flexure and distally. 2. Mild adjacent fluid and stranding is nonspecific in the right upper quadrant. Differential considerations include pancreatitis and cholecystitis by CT. 3. Wall thickening of the urinary bladder. 4. Mild worsening bibasilar atelectasis/pneumonitis. This document has been electronically signed by: Kirit Feliz MD on 04/04/2025 20:27:18
--- OUTSIDE RECORDS SUMMARY | 2025-04-02 11:18 | XMS_ITS | Continuity of Care Document ---
Author Name [facility] Organization [facility] Care Team Providers Care Digital Field Service Technician Name Role Phone [facility] Unavailable Unavailable Problems Combined list of problems from Department of Defense and Veterans Affairs facilities. It does not include entries that were removed or entered in error. Problem Status Onset Date Problem Type Date of Resolution Comments Source Chronic low back pain Active Condition [facility] Cigarette smoker Active Condition Nov 29, 2017 Entered By: ANDRÉS KUMAR Comment: 08/27 ppdApr 2020 Entered By: FADUMO STUART Comment: stopped smoking Sep 2020 [facility] Complaining of erectile dysfunction Active Condition [facility] Depressive disorder Active Condition Mar 22, 2025 Entered By: ALICIA CHOUDHURY Comment: Major Depressive Disorder, Mild [facility] Dyspnea on exertion Active Condition January 15, 2019 Entered By: FADUMO STUART Comment: PFT: 12/2018 mild ventilatory defect; no rxn to bronchodilatorJul 2018 Entered By: FADUMO STUART Comment: partially ascribed to restrictive effects of obesity [facility] Glaucoma Active Condition [facility] Herpes Simplex Type I Active Condition [facility] History of hepatitis C Active Condition Nov 29, 2017 Entered By: ANDRÉS KUMAR Comment: finished Harvoni tx 08/2017. SVRApr 2018 Entered By: FADUMO STUATR Comment: [facility] Provider: Rola Ramirez 2020 Entered By: FADUMO STUART Comment: 09/2020 - RNA undetectedMar 2020 Entered By: FADUMO STUART Comment: 09/2018 - U/S with elastography unlikely cirrhosis; CT abd 02/2019 shows simple hepatic cysts onlySep 2022 Entered By: FADUMO STUART Comment: mid pancreatic mass - for characterization/b iopsy [facility] Homeless single person Active Condition [facility] Housing problem Active Condition [facility] Lumbosacral spondylosis Active Condition [facility] Multiple nodules of lung Active Condition Jun 02, 2020 Entered By: FADUMO STUART Comment: small multiple LDCT 11/2018, 02/2019; 03/2020 - stableMar 2020 Entered By: FADUMO STUART Comment: next LDCT 03/2022 [facility] Neuroendocrine tumor Active Condition [facility] Obstructive sleep apnea of adult Active Condition [facility] Obstructive sleep apnea syndrome Active Condition Dec 19, 2020 Entered By: FADUMO STUART Comment: 11/2020 SEVERE Apnea Hypopnea Index (AHI) of 92.8/hr [facility] Opioid dependence Active Condition 2024 Entered By: ALICIA CHOUDHURY Comment: Opioid (Oxycodone) Use Disorder, Severe [facility] Opioid dependence in remission Active Condition Nov 29, 2017 Entered By: ANDRÉS KUMAR Comment: heroin dependence, in remission [facility] Rash ([facility] [id number]) Active Condition [facility] Vitamin D Deficiency ([facility] [id number]) Active Condition Oct 18, 2020 Entered By: FADUMO STUART Comment: 09/2020 22 [facility] Diagnosis: ICD-10-CM F11.20 Opioid dependence, uncomplicated Active Diagnosis [facility] Diagnosis: ICD-10-CM M17.0 Bilateral primary osteoarthritis of knee Active Diagnosis [facility] Diagnosis: ICD-10-CM B35.4 Tinea corporis Active Diagnosis [facility] Diagnosis: ICD-10-CM R21 Rash and other nonspecific skin eruption Active Diagnosis [facility] Diagnosis: ICD-10-CM F10.21 Alcohol dependence, in remission Active Diagnosis [facility] Diagnosis: ICD-10-CM Z71.89 Other specified counseling Active Diagnosis [facility] Diagnosis: ICD-10-CM L60.3 Nail dystrophy [facility] Diagnosis: ICD-10-CM M17.12 Unilateral primary osteoarthritis, left knee Active Diagnosis [facility] Diagnosis: ICD-10-CM K92.2 Gastrointestinal hemorrhage, unspecified Active Diagnosis [facility] Diagnosis: ICD-10-CM N40.0 Benign prostatic hyperplasia without lower urinry tract symp Active Diagnosis JENAE Malloy [facility] Diagnosis: ICD-10-CM I1A.0 Resistant hypertension Active Diagnosis [facility] Diagnosis: ICD-10-CM F51.01 Primary insomnia Active Diagnosis [facility] Diagnosis: ICD-10-CM G47.33 Obstructive sleep apnea (adult) (pediatric) Active Diagnosis [facility] Diagnosis: ICD-10-CM Z12.2 Encntr screen for malignant neoplasm of respiratory organs Active Diagnosis [facility] Diagnosis: ICD-10-CM M47.896 Other spondylosis, lumbar region Active Diagnosis [facility] Diagnosis: ICD-10-CM R09.81 Nasal congestion Active Diagnosis [facility] Diagnosis: ICD-10-CM M54.50 Low back pain, unspecified Active Diagnosis [facility] Diagnosis: ICD-10-CM Z46.0 Encounter for fit/adjst of spectacles and contact lenses Active Diagnosis [facility] Diagnosis: ICD-10-CM H40.1133 Primary open-angle glaucoma, bilateral, severe stage Active Diagnosis [facility] Diagnosis: ICD-10-CM F32.A Depression, unspecified Active Diagnosis [facility] Diagnosis: ICD-10-CM Z08 Encntr for follow-up exam after trtmt for malignant neoplasm Active Diagnosis [facility] Diagnosis: ICD-10-CM M47.897 Other spondylosis, lumbosacral region Active Diagnosis [facility] Diagnosis: ICD-10-CM M46.1 Sacroiliitis, not elsewhere classified Active Diagnosis [facility] Diagnosis: ICD-10-CM G40.89 Other seizures Active Diagnosis [facility] D Diagnosis: ICD-10-CM Z13.6 Encounter for screening for cardiovascular disorders Active Diagnosis [facility] Diagnosis: ICD-10-CM Z09 Encntr for f/u exam aft trtmt for cond oth than malig neoplm Active Diagnosis [facility] Diagnosis: ICD-10-CM M47.816 Spondylosis w/o myelopathy or radiculopathy, lumbar region Active Diagnosis [facility] [place] [facility] Diagnosis: ICD-10-CM F43.21 Adjustment disorder with depressed mood Active Diagnosis [facility] D Medications Combined list of outpatient medications from Department of Defense and Veterans Affairs facilities.Medications provided include 1) outpatient medications from the last 15 months, and 2) patient-reported medications. Medication Details Route Status Patient Instructions Prescription Expires Prescription Number Last Dispense Date Ordering Provider Order Date Order Qty Source BRIMONIDINE 0.2%/BRINZO LAMIDE 1% SUSP,OPH INSTILL 1 DROP INTO EACH EYE TWICE DAILY FOR WIDE-ANG LE GLAUCOMA OPHTHA LMIC 02/03/2025 [id number] MERDIANA,NO AH B 2023 24 [facility] CAPSAICIN 0.1% CREAM,TOP APPLY A SMALL AMOUNT TOPICALL Y TWICE DAILY NEEDED FOR LOCALIZE D PAIN APPLIED TO LEFT KNEE TWICE DAILY TOPICA L ACTIVE 09/24/2025 [id number] 5 VIOLETTA THORNTON 2024 120 [facility] CYANOCOBALA MIN TAB TAKE BY MOUTH ORAL ACTIVE DUONG CLARK 2020 [facility] IELD CYCLOBENZAP RINE HCL 5MG TAB TAKE ONE TABLET BY MOUTH THREE TIMES DAILY NEEDED FOR MUSCLE SPASM ORAL 02/14/2024 [id number] 4 VIOLETTA THORNTON 2023 90 [facility] DOCUSATE NA 50MG/SENNOS IDES 8.6MG TAB TAKE 2 TABLETS BY MOUTH AT BEDTIME FOR CONSTIPA TION ORAL 05/12/2024 [id number] 4 FADUMO STUART 2023 100 [place] FERROUS GLUCONATE 324MG TAB TAKE ONE TABLET BY MOUTH QOD ORAL ACTIVE RA BIANCA AGUERO 2024 [place] FINASTERIDE 5MG TAB TAKE ONE TABLET BY MOUTH ONCE DAILY FOR ENLARGED PROSTATE ORAL ACTIVE 01/22/2026 [id number] 5 DECEMBER,ALEXA EISENBERG P 2024 90 [facility] HYALURONATE NA (DUROLANE) 20MG/ML INJ,SYRINGE ,3ML INJECT 60MG INTRA-AR TICULAR ONE TIME RIGHT KNEE INTRA- ARTICU LAR ACTIVE 02/20/2026 [id number] 5 VIOLETTA THORNTON 2024 1 [facility] HYALURONATE NA (DUROLANE) 20MG/ML INJ,SYRINGE ,3ML INJECT 60MG INTRA-AR TICULAR ONE TIME RIGHT KNEE INTRA- ARTICU LAR DISCONT INUED 02/24/2025 [id number] 5 VIOLETTA THORNTON 2023 1 [facility] HYDROPHILIC (EQV AQUAPHOR) OINT,TOP APPLY LIBERAL AMOUNT TOPICALL Y TWICE DAILY NEEDED FOR DRY SKIN TOPICA L ACTIVE 10/10/2025 [id number] 5 RA BIANCA AGUERO 2024 454 [place] HYDROXYZINE HCL 10MG TAB TAKE ONE TABLET BY MOUTH AT BEDTIME NEEDED FOR INSOMNIA ORAL DISCONT INUED (EDIT) 10/10/2025 [id number] 5 RA BIANCA AGUERO 2024 30 [place] HYDROXYZINE HCL 25MG TAB TAKE ONE TABLET BY MOUTH AT BEDTIME NEEDED FOR INSOMNIA - NOTE DOSE ORAL ACTIVE 01/22/2026 [id number] 5 DECEMBERALEXA P 2024 30 [facility] HYDROXYZINE HCL 25MG TAB TAKE ONE TABLET BY MOUTH AT BEDTIME NEEDED FOR INSOMNIA - NOTE DOSE ORAL DISCONT INUED 10/15/2025 [id number] 5 RA BIANCA AGUERO 2024 30 [place] LATANOPROST 0.005% SOLN,OPH INSTILL 1 DROP INTO EACH EYE AT BEDTIME OPHTHA LMIC 05/13/2024 [id number] 4 ANAHY AIKEN 2022 7.5 [place] LISINOPRIL 10MG TAB TAKE ONE TABLET BY MOUTH ONCE DAILY TO CONTROL BLOOD PRESSURE ORAL DISCONT INUED (EDIT) 01/22/2026 [id number] 5 DECEMBERALEXA P 2024 90 [facility] LISINOPRIL 10MG TAB TAKE ONE TABLET BY MOUTH ONCE DAILY TO CONTROL BLOOD PRESSURE ORAL DISCONT INUED 11/20/2025 [id number] 5 RA BIANCA AGUERO 2024 90 [place] LISINOPRIL 10MG TAB TAKE ONE TABLET BY MOUTH ONCE DAILY TO CONTROL BLOOD PRESSURE ORAL DISCONT INUED 11/14/2024 [id number] 4 FADUMO STUART 2023 90 [place] LISINOPRIL 20MG TAB TAKE ONE TABLET BY MOUTH ONCE DAILY TO CONTROL BLOOD PRESSURE ORAL ACTIVE 01/27/2026 [id number] 5 Yue CHRISTOPHRE 2024 30 [facility] METOPROLOL SUCCINATE 50MG TAB,SA TAKE ONE TABLET BY MOUTH ONCE DAILY FOR BLOOD PRESSURE /HEART ORAL ACTIVE 01/22/2026 [id number] 5 DECEMBERALEXA P 2024 90 [facility] NALOXONE HCL 4MG/SPRAY SOLN,SPRAY, NASAL INSTILL 1 SPRAY IN THE NOSE ONE TIME FOR OPIOID OVERDOSE CALL 911 WITH ADMINIST RATION. REPEAT WITH SECOND DEVICE IF SYMPTOMS RETURN NASAL ACTIVE 03/23/2026 [id number] 5 BRYANNA COUCH 2024 2 [place] OXYCODONE HCL 5MG TAB TAKE ONE TABLET BY MOUTH TWICE DAILY NEEDED FOR PAIN ORAL 04/22/2024 [id number] 4 NARCISOFADUMO BULLARD O 2023 30 [place] TADALAFIL 20MG TAB TAKE ONE TABLET BY MOUTH ONCE DAILY FOR ERECTILE DYSFUNCT ION ORAL ACTIVE 01/22/2026 [id number] 5 DECEMBERALEXA RLY P 2024 18 [facility] TADALAFIL 20MG TAB TAKE ONE TABLET BY MOUTH ONCE DAILY ORAL DISCONT INUED 11/25/2025 [id number] 5 RA BIANCA AGUERO 2024 18 [place] TADALAFIL 20MG TAB TAKE ONE TABLET BY MOUTH ONCE DAILY ORAL DISCONT INUED 11/08/2024 [id number] FADUMO STUART O 2023 18 [place] TAMSULOSIN HCL 0.4MG CAP TAKE TWO CAPSULES BY MOUTH ONCE DAILY FOR ENLARGED PROSTATE (TAKE 30 MINUTES AFTER THE SAME MEALTIME EACH DAY) ORAL DISCONT INUED BY JASON Fall 08/01/2025 [id number] 4 RA BIANCA AGUERO 2023 60 [place] TAMSULOSIN HCL 0.4MG CAP TAKE TWO CAPSULES BY MOUTH ONCE DAILY FOR ENLARGED PROSTATE (TAKE 30 MINUTES AFTER THE SAME MEALTIME EACH DAY) ORAL DISCONT INUED 01/30/2025 [id number] 4 Meron RAY 2023 60 [place] TERBINAFINE HCL 1% CREAM,TOP APPLY A THIN LAYER TOPICALL Y TWICE DAILY FUNGAL INFECTIO N TOPICA L ACTIVE 03/18/2026 [id number] 5 BRANDY THAKKAR 2024 60 [place] Immunizations Combined list of available immunizations from the Department of Defense and Veterans Affairs facilities. Immunization Series Date Given Administered By Site Reaction Lot Number CVX Code Drug Concrete Mixer Operator Status Comments Source INFLUENZA, HIGH-DOSE, QUADRIVALENT 2022 GILDARDO ROWAN LEFT DELTO ID [id number] 197 complet ed [facility] [place], [facility] IELD PNEUMOCOCCAL CONJUGATE PCV20, POLYSACCHARID E [id number] CONJUGATE, ADJUVANT, PF 2022 GILDARDO ROWAN RIGHT DELTO ID [id number] 216 complet ed [facility] [place], [facility] I[place] COVID-19 (MODERNA), MRNA, LNP-S, PF, 100 MCG/0.5ML DOSE OR 50 MCG/0.25ML DOSE 2021 207 complet ed Booster for Series, MOD; [id number]; 2 [place] COVID-19 (MODERNA), MRNA, LNP-S, PF, 100 MCG OR 50 MCG DOSE 3 2020 207 complet ed MOD; [id number]; 2 [place] ZOSTER RECOMBINANT 2 2020 187 complet ed [place] COVID-19 (MODERNA), MRNA, LNP-S, PF, 100 MCG/0.5 ML DOSE 2 2020 207 complet ed MOD; [id number]; 1 [place] COVID-19 (MODERNA), MRNA, LNP-S, PF, 100 MCG/0.5 ML DOSE 1 2020 207 complet ed MOD; [id number]; 1 [place] INFLUENZA, INJECTABLE, QUADRIVALENT, PRESERVATIVE FREE 2019 150 complet ed [place] HEP B, ADULT 2 2019 43 complet ed [place] ZOSTER RECOMBINANT 1 2019 187 complet ed [place] PNEUMOCOCCAL POLYSACCHARID E PPV23 2019 33 complet ed [place] HEP B, ADULT 2018 NONE 43 complet ed Booster for Series, [place] INFLUENZA, SEASONAL, INJECTABLE 2016 141 complet ed [facility] TDAP 2013 115 complet ed [facility] Results Combined list of recent chemistry, hematology and other laboratory results from Department of Defense and Veterans Affairs, ranging from 15 months to all on record, depending upon the facility. Order Name Results Value Reference Range Date Interpretation Specimen Comments Source FERRITIN FERRITIN [MASS/VOLU ME] IN SERUM OR PLASMA BY IMMUNOASSA Y 31.8 ng/mL 21.8 - 274.7 02/22 Specimen Type: SERUM No comment entered. Ordering Provider: TRAVIS AGUERO Report Released Date/Time: Feb 19, 2025 03:06 PM Reporting Lab: [facility] [place] [facility] [address] [facility] [address] Performing Lab: [facility] [place] [facility] [address] [facility] [address] [place] IRON & TIBC PANEL IRON BINDING CAPACITY [MASS/VOLU ME] IN SERUM OR PLASMA 367 ug/dL 204 - 475 02/22 Specimen Type: SERUM No comment entered. Ordering Provider: TRAVIS AGUERO Report Released Date/Time: Feb 19, 2025 03:06 PM Reporting Lab: [facility] [place] [facility] [address] [facility] [address] Performing Lab: [facility] [place] [facility] [address] [facility] [address] [place] IRON & TIBC PANEL IRON [MASS/VOLU ME] IN SERUM OR PLASMA 46 ug/dL 65 - 175 02/22 L Specimen Type: SERUM No comment entered. Ordering Provider: TRAVIS AGUERO Report Released Date/Time: Feb 19, 2025 03:06 PM Reporting Lab: [facility] [place] [facility] [address] [facility] [address] Performing Lab: [facility] [place] [facility] [address] [facility] [address] [place] IRON & TIBC PANEL IRON/IRON BINDING CAPACITY.T OTAL [MASS RATIO] IN SERUM OR PLASMA 12.5 15 - 45 02/22 L Specimen Type: SERUM No comment entered. Ordering Provider: TRAVIS AGUERO Report Released Date/Time: Feb 19, 2025 03:06 PM Reporting Lab: [facility] [place] [facility] [address] [facility] [address] Performing Lab: [facility] [place] [facility] [address] [facility] [address] [place] IRON & TIBC PANEL TRANSFERRI N [MASS/VOLU ME] IN SERUM OR PLASMA 278 mg/dL 180 - 382 06/30 /2025 Specimen Type: SERUM No comment entered. Ordering Provider: TRAVIS AGUERO Report Released Date/Time: Feb 19, 2025 03:06 PM Reporting Lab: [facility] [address] [address] Performing Lab: [facility] [address] [place] CBC AND DIFF (AUTO) LEUKOCYTES [#/VOLUME] IN BLOOD BY AUTOMATED COUNT 5.97 10*3/uL 4.50 - 11.00 02/22 Specimen Type: BLOOD No comment entered. Ordering Provider: TRAVIS AGUERO Report Released Date/Time: Feb 19, 2025 03:06 PM Reporting Lab: [facility] [address] [address] Performing Lab: [facility] [address] [address] [place] CBC AND DIFF (AUTO) ERYTHROCYT ES [#/VOLUME] IN BLOOD BY AUTOMATED COUNT 4.01 10*6/uL 4.23 - 5.66 02/22 L Specimen Type: BLOOD No comment entered. Ordering Provider: TRAVIS AGUERO Report Released Date/Time: Feb 19, 2025 03:06 PM Reporting Lab: [facility] [address] [address] Performing Lab: [facility] [address] [address] [place] CBC AND DIFF (AUTO) HEMOGLOBIN [MASS/VOLU ME] IN BLOOD 11.5 g/dL 12.8 - 17 02/22 L Specimen Type: BLOOD No comment entered. Ordering Provider: TRAVIS AGUERO Report Released Date/Time: Feb 19, 2025 03:06 PM Reporting Lab: [facility] [address] [address] Performing Lab: [facility] [address] [address] [place] CBC AND DIFF (AUTO) HEMATOCRIT [VOLUME FRACTION] OF BLOOD BY AUTOMATED COUNT 35.1 39.2 - 50.4 02/22 L Specimen Type: BLOOD No comment entered. Ordering Provider: TRAVIS AGUERO Report Released Date/Time: Feb 19, 2025 03:06 PM Reporting Lab: [facility] [address] [facility] [address] Performing Lab: [facility] [address] [facility] [address] [place] CBC AND DIFF (AUTO) MCV [ENTITIC VOLUME] BY AUTOMATED COUNT 87.5 fL 82 - 99 02/22 Specimen Type: BLOOD No comment entered. Ordering Provider: TRAVIS AGUERO Report Released Date/Time: Feb 19, 2025 03:06 PM Reporting Lab: [facility] [address] [address] Performing Lab: [address] [address] [place] CBC AND DIFF (AUTO) MCHC [MASS/VOLU ME] BY AUTOMATED COUNT 32.8 g/dL 30.8 - 35.1 02/22 Specimen Type: BLOOD No comment entered. Ordering Provider: TRAVIS AGUERO Report Released Date/Time: Feb 19, 2025 03:06 PM Reporting Lab: [facility] [address] [address] Performing Lab: [facility] [address] [address] [place] CBC AND DIFF (AUTO) PLATELETS [#/VOLUME] IN BLOOD BY AUTOMATED COUNT 355 10*3/uL 140 - 360 02/22 Specimen Type: BLOOD No comment entered. Ordering Provider: TRAVIS AGUERO Report Released Date/Time: Feb 19, 2025 03:06 PM Reporting Lab: [facility] [address] [address] Performing Lab: [facility] [address] [address] [place] CBC AND DIFF (AUTO) PLATELET MEAN VOLUME [ENTITIC VOLUME] IN BLOOD BY AUTOMATED COUNT 9.3 fL 9.2 - 12.4 02/22 Specimen Type: BLOOD No comment entered. Ordering Provider: TRAVIS AGUERO Report Released Date/Time: Feb 19, 2025 03:06 PM Reporting Lab: [facility] [address] [address] Performing Lab: [facility] [address] [address] [place] CBC AND DIFF (AUTO) ERYTHROCYT E DISTRIBUTI ON WIDTH [RATIO] BY AUTOMATED COUNT 14.1 12.0 - 16.0 02/22 Specimen Type: BLOOD No comment entered. Ordering Provider: TRAVIS AGUERO Report Released Date/Time: Feb 19, 2025 03:06 PM Reporting Lab: [address] [address] Performing Lab: [address] [address] [place] CBC AND DIFF (AUTO) MONOCYTES [#/VOLUME] IN BLOOD BY AUTOMATED COUNT 0.74 10*3/uL 0.30 - 1.10 02/22 Specimen Type: BLOOD No comment entered. Ordering Provider: TRAVIS AGUERO Report Released Date/Time: Feb 19, 2025 03:06 PM Reporting Lab: [address] [address] Performing Lab: [facility] [address] [address] [place] CBC AND DIFF (AUTO) MCH [ENTITIC MASS] BY AUTOMATED COUNT 28.7 pg 26.2 - 32.6 02/22 Specimen Type: BLOOD No comment entered. Ordering Provider: TRAVIS AGUERO Report Released Date/Time: Feb 19, 2025 03:06 PM Reporting Lab: [address] [address] Performing Lab: [address] [address] [place] CBC AND DIFF (AUTO) NEUTROPHIL S/100 LEUKOCYTES IN BLOOD BY AUTOMATED COUNT 47.7 43.7 - 75.8 02/22 Specimen Type: BLOOD No comment entered. Ordering Provider: TRAVIS AGUERO Report Released Date/Time: Feb 19, 2025 03:06 PM Reporting Lab: [facility] [place] [facility] [address] [facility] [address] Performing Lab: [facility] [place] [facility] [address] [facility] [address] [place] CBC AND DIFF (AUTO) LYMPHOCYTE S/100 LEUKOCYTES IN BLOOD BY AUTOMATED COUNT 34.0 14.0 - 42.3 02/22 Specimen Type: BLOOD No comment entered. Ordering Provider: TRAVIS AGUERO Report Released Date/Time: Feb 19, 2025 03:06 PM Reporting Lab: [facility] [place] [address] [address] Performing Lab: [facility] [place] [facility] [address] [facility] [address] [place] CBC AND DIFF (AUTO) MONOCYTES/ 100 LEUKOCYTES IN BLOOD BY AUTOMATED COUNT 12.4 5.1 - 13.7 02/22 Specimen Type: BLOOD No comment entered. Ordering Provider: TRAVIS AGUERO Report Released Date/Time: Feb 19, 2025 03:06 PM Reporting Lab: [facility] [place] [address] [address] Performing Lab: [facility] [place] [facility] [address] [facility] [address] [place] CBC AND DIFF (AUTO) EOSINOPHIL S/100 LEUKOCYTES IN BLOOD BY AUTOMATED COUNT 4.7 0.4 - 6.8 02/22 Specimen Type: BLOOD No comment entered. Ordering Provider: TRAVIS AGUERO Report Released Date/Time: Feb 19, 2025 03:06 PM Reporting Lab: [facility] [place] [address] [address] Performing Lab: [facility] [place] [address] [address] [place] CBC AND DIFF (AUTO) BASOPHILS/ 100 LEUKOCYTES IN BLOOD BY AUTOMATED COUNT 1.0 0.1 - 2.0 02/22 Specimen Type: BLOOD No comment entered. Ordering Provider: TRAVIS AGUERO Report Released Date/Time: Feb 19, 2025 03:06 PM Reporting Lab: [facility]RB[facility]TRN [facility] [address] Performing Lab: [facility] [address] [address] [place] CBC AND DIFF (AUTO) NEUTROPHIL S [#/VOLUME] IN BLOOD BY AUTOMATED COUNT 2.85 10*3/uL 2.20 - 7.60 02/22 Specimen Type: BLOOD No comment entered. Ordering Provider: TRAVIS AGUERO Report Released Date/Time: Feb 19, 2025 03:06 PM Reporting Lab: [facility]ITALRBAP[facility]TRN [facility] [address] [address] Performing Lab: [facility] [address] [address] [place] CBC AND DIFF (AUTO) LYMPHOCYTE S [#/VOLUME] IN BLOOD BY AUTOMATED COUNT 2.03 10*3/uL 1.00 - 3.20 02/22 Specimen Type: BLOOD No comment entered. Ordering Provider: TRAVIS AGUERO Report Released Date/Time: Feb 19, 2025 03:06 PM Reporting Lab: [facility] [address] [address] Performing Lab: [facility]TRN [facility] [address] [address] [place] CBC AND DIFF (AUTO) EOSINOPHIL S [#/VOLUME] IN BLOOD BY AUTOMATED COUNT 0.28 10*3/uL 0.03 - 0.44 02/22 Specimen Type: BLOOD No comment entered. Ordering Provider: TRAVIS AGUERO Report Released Date/Time: Feb 19, 2025 03:06 PM Reporting Lab: [facility]ITALUSETS [address] [address] Performing Lab: [facility]ITALRENCOM[facility]TGOMERYN [facility]PITALUSEMAIMONID[facility] [address] [facility] [address] [place] CBC AND DIFF (AUTO) BASOPHILS [#/VOLUME] IN BLOOD BY AUTOMATED COUNT 0.06 10*3/uL 0.01 - 0.13 02/22 Specimen Type: BLOOD No comment entered. Ordering Provider: TRAVIS AGUERO Report Released Date/Time: Feb 19, 2025 03:06 PM Reporting Lab: [facility]TRN [facility]PITALUSE[address] [address] Performing Lab: [facility] [address] [address] [place] CBC AND DIFF (AUTO) IMMATURE GRANULOCYT ES/100 LEUKOCYTES IN BLOOD BY AUTOMATED COUNT 0.2 0.0 - 0.7 02/22 Specimen Type: BLOOD No comment entered. Ordering Provider: TRAVIS AGUERO Report Released Date/Time: Feb 19, 2025 03:06 PM Reporting Lab: [facility] [address] [address] Performing Lab: [facility] [address] [address] [place] CBC AND DIFF (AUTO) IMMATURE GRANULOCYT ES [#/VOLUME] IN BLOOD BY AUTOMATED COUNT 0.01 10*3/uL 0.00 - 0.06 02/22 Specimen Type: BLOOD No comment entered. Ordering Provider: TRAVIS AGUERO Report Released Date/Time: Feb 19, 2025 03:06 PM Reporting Lab: [facility]TRN [address] [address] Performing Lab: [facility] [address] [address] [place] CBC AND DIFF (AUTO) NUCLEATED ERYTHROCYT ES/100 LEUKOCYTES [RATIO] IN BLOOD BY AUTOMATED COUNT 0.0 0.0 - 0.0 02/22 Specimen Type: BLOOD No comment entered. Ordering Provider: TRAVIS AGUERO Report Released Date/Time: Feb 19, 2025 03:06 PM Reporting Lab: [facility]TRN [facility]ITALUSEMAIMONID[facility] [address] [facility] [address] Performing Lab: [facility]ITALR[facility]ERYN [facility]ITALUSE[address] [address] [facility] CBC AND DIFF (AUTO) NUCLEATED ERYTHROCYT ES [#/VOLUME] IN BLOOD BY AUTOMATED COUNT 0.00 10*3/uL 0.00 - 0.00 02/22 Specimen Type: BLOOD No comment entered. Ordering Provider: TRAVIS AGUERO Report Released Date/Time: Feb 19, 2025 03:06 PM Reporting Lab: [facility] [address] [address] Performing Lab: [facility] [address] [address] [facility] BASIC METABOLI C PANEL (fasting ) UREA NITROGEN [MASS/VOLU ME] IN SERUM OR PLASMA 16 mg/dL 8 - 26 02/22 Specimen Type: SERUM No comment entered. Ordering Provider: MARGARITO CHRISTOPHER Report Released Date/Time: Jan 26, 2025 01:53 PM Reporting Lab: [facility] [address] [address] Performing Lab: [facility]ITALRENCOM[facility]ERYN [facility]ITALUSE[address] [address] [facility] BASIC METABOLI C PANEL (fasting ) GLUCOSE [MASS/VOLU ME] IN SERUM OR PLASMA 103 mg/dL 65 - 100 02/22 H Specimen Type: SERUM No comment entered. Ordering Provider: MARGARITO CHRISTOPHER Report Released Date/Time: Jan 26, 2025 01:53 PM Reporting Lab: [facility]N [facility]ITALUSE[address] [address] Performing Lab: [facility]ITALRENCOM[facility]N [facility]ITALUSE[address] [address] [facility] BASIC METABOLI C PANEL (fasting ) SODIUM [MOLES/VOL UME] IN SERUM OR PLASMA 140 mmol/L 136 - 145 02/22 Specimen Type: SERUM No comment entered. Ordering Provider: MARGARITO CHRISTOPHER Report Released Date/Time: Jan 26, 2025 01:53 PM Reporting Lab: [facility] [place] [facility] [address] [facility] [address] Performing Lab: [facility] [place] [facility] [address] [facility] [address] [facility] [place] [facility] BASIC METABOLI C PANEL (fasting ) POTASSIUM [MOLES/VOL UME] IN SERUM OR PLASMA 4.1 mmol/L 3.5 - 5.1 02/22 Specimen Type: SERUM No comment entered. Ordering Provider: MARGARITO CHRISTOPHER Report Released Date/Time: Jan 26, 2025 01:53 PM Reporting Lab: [facility] [place] [facility] [address] [facility] [address] Performing Lab: [facility] [place] [address] [address] [facility] [place] [facility] BASIC METABOLI C PANEL (fasting ) CHLORIDE [MOLES/VOL UME] IN SERUM OR PLASMA 110 mmol/L 98 - 107 02/22 H Specimen Type: SERUM No comment entered. Ordering Provider: MARGARITO CHRISTOPHER Report Released Date/Time: Jan 26, 2025 01:53 PM Reporting Lab: [facility] [place] [address] [address] Performing Lab: [facility] [place] [address] [address] [facility] [place] [facility] BASIC METABOLI C PANEL (fasting ) CARBON DIOXIDE, TOTAL [MOLES/VOL UME] IN SERUM OR PLASMA 23 meq/L 23 - 31 02/22 Specimen Type: SERUM No comment entered. Ordering Provider: MARGARITO CHRISTOPHER Report Released Date/Time: Jan 26, 2025 01:53 PM Reporting Lab: [facility] [place] [facility] [address] [facility] [address] Performing Lab: [facility] [place] [address] [address] [facility] [place] [facility] BASIC METABOLI C PANEL (fasting ) CALCIUM [MASS/VOLU ME] IN SERUM OR PLASMA 8.8 mg/dL 8.8 - 10 02/22 Specimen Type: SERUM No comment entered. Ordering Provider: MARGARITO CHRISTOPHER Report Released Date/Time: Jan 26, 2025 01:53 PM Reporting Lab: [facility] [address] [address] Performing Lab: [facility] [address] [address] [facility] BASIC METABOLI C PANEL (fasting ) CREATININE [MASS/VOLU ME] IN SERUM OR PLASMA 0.81 mg/dL 0.72 - 1.25 02/22 Specimen Type: SERUM No comment entered. Ordering Provider: MARGARITO CHRISTOPHER Report Released Date/Time: Jan 26, 2025 01:53 PM Reporting Lab: [address] [address] Performing Lab: [address] [address] [facility] BASIC METABOLI C PANEL (fasting ) GLOMERULAR FILTRATION RATE/1.73 SQ M.PREDICTE D [VOLUME RATE/AREA] IN SERUM, PLASMA OR BLOOD BY CREATININE -BASED FORMULA (CKD-EPI 2020) >90mL/mi n 60 02/22 Specimen Type: SERUM No comment entered. Ordering Provider: MARGARITO CHRISTOPHER Report Released Date/Time: Jan 26, 2025 01:53 PM Reporting Lab: [address] [address] Performing Lab: [facility] [address] [address] [facility] CBC AND DIFF (AUTO) LEUKOCYTES [#/VOLUME] IN BLOOD BY AUTOMATED COUNT 7.74 10*3/uL 4.50 - 11.00 01/25 Specimen Type: BLOOD No comment entered. Ordering Provider: LIAM AGUILAR Report Released Date/Time: January 21, 2025 04:16 PM Reporting Lab: [address] [address] Performing Lab: [facility]ITAL[facility] [place] [facility] [address] [facility] [address] [facility]ITALRL [facility] [place] [facility] CBC AND DIFF (AUTO) ERYTHROCYT ES [#/VOLUME] IN BLOOD BY AUTOMATED COUNT 3.56 10*6/uL 4.23 - 5.66 01/25 L Specimen Type: BLOOD No comment entered. Ordering Provider: LIAM AGUILAR Report Released Date/Time: January 21, 2025 04:16 PM Reporting Lab: [facility]ITALRL [facility] [place] [facility] [address] [facility] [address] Performing Lab: [facility]ITALRBAPT[facility] SOUTHTRN [facility]ITALCH[facility] [address] [facility] [address] [facility]ITALRENCOM[facility]ERYN [place] [facility] CBC AND DIFF (AUTO) HEMOGLOBIN [MASS/VOLU ME] IN BLOOD 10.6 g/dL 12.8 - 17 01/25 L Specimen Type: BLOOD No comment entered. Ordering Provider: LIAM AGUILAR Report Released Date/Time: January 21, 2025 04:16 PM Reporting Lab: [facility]ITALRBAP[facility]THTRN [place] [facility] [address] [facility] [address] Performing Lab: [facility]PITALRL TRN [facility]ITALCHUS[facility] [address] [facility] [address] [facility]ITALRENCOM[facility]ERYN [place] [facility] CBC AND DIFF (AUTO) HEMATOCRIT [VOLUME FRACTION] OF BLOOD BY AUTOMATED COUNT 32.7 39.2 - 50.4 01/25 L Specimen Type: BLOOD No comment entered. Ordering Provider: LIAM AGUILAR Report Released Date/Time: January 21, 2025 04:16 PM Reporting Lab: [facility]ITALRL [facility] [place] [facility] [address] [facility] [address] Performing Lab: [facility]ITALRL [facility] [place] [facility] [address] [facility] [address] [facility]ITALRENCOM[facility]N [place] [facility] CBC AND DIFF (AUTO) MCV [ENTITIC VOLUME] BY AUTOMATED COUNT 91.9 fL 82 - 99 01/25 Specimen Type: BLOOD No comment entered. Ordering Provider: LIAM AGUILAR Report Released Date/Time: January 21, 2025 04:16 PM Reporting Lab: [facility] [place] [facility] [address] [facility] [address] Performing Lab: [facility] [place] [facility] [address] [facility] [address] [facility] [place] [facility] CBC AND DIFF (AUTO) MCHC [MASS/VOLU ME] BY AUTOMATED COUNT 32.4 g/dL 30.8 - 35.1 01/25 Specimen Type: BLOOD No comment entered. Ordering Provider: LIAM AGUILAR Report Released Date/Time: January 21, 2025 04:16 PM Reporting Lab: [facility] [place] [facility] [address] [facility] [address] Performing Lab: [facility] [place] [facility] [address] [facility] [address] [facility] [place] [facility] CBC AND DIFF (AUTO) PLATELETS [#/VOLUME] IN BLOOD BY AUTOMATED COUNT 606 10*3/uL 140 - 360 01/25 H Specimen Type: BLOOD No comment entered. Ordering Provider: LIAM AGUILAR Report Released Date/Time: January 21, 2025 04:16 PM Reporting Lab: [facility] [place] [facility] [address] [facility] [address] Performing Lab: [facility] [place] [facility] [address] [facility] [address] [facility] [place] [facility] CBC AND DIFF (AUTO) PLATELET MEAN VOLUME [ENTITIC VOLUME] IN BLOOD BY AUTOMATED COUNT 9.2 fL 9.2 - 12.4 01/25 Specimen Type: BLOOD No comment entered. Ordering Provider: LIAM AGUILAR Report Released Date/Time: January 21, 2025 04:16 PM Reporting Lab: [facility] [place] [facility] [address] [facility] [address] Performing Lab: [facility] [place] [facility] [address] [facility] [address] [facility] [place] [facility] CBC AND DIFF (AUTO) ERYTHROCYT E DISTRIBUTI ON WIDTH [RATIO] BY AUTOMATED COUNT 15.1 12.0 - 16.0 01/25 Specimen Type: BLOOD No comment entered. Ordering Provider: LIAM AGUILAR Report Released Date/Time: January 21, 2025 04:16 PM Reporting Lab: [facility] [place] [facility] [address] [facility] [address] Performing Lab: [facility] [place] [facility] [address] [facility] [address] [facility] [place] [facility] CBC AND DIFF (AUTO) MONOCYTES [#/VOLUME] IN BLOOD BY AUTOMATED COUNT 0.81 10*3/uL 0.30 - 1.10 01/25 Specimen Type: BLOOD No comment entered. Ordering Provider: LIAM AGUILAR Report Released Date/Time: January 21, 2025 04:16 PM Reporting Lab: [facility] [place] [facility] [address] [facility] [address] Performing Lab: [facility] [place] [facility] [address] [facility] [address] [facility] [place] [facility] CBC AND DIFF (AUTO) MCH [ENTITIC MASS] BY AUTOMATED COUNT 29.8 pg 26.2 - 32.6 01/25 Specimen Type: BLOOD No comment entered. Ordering Provider: LIAM AGUILRA Report Released Date/Time: January 21, 2025 04:16 PM Reporting Lab: [facility]ITAL[facility] [place] [facility] [address] [facility] [address] Performing Lab: [facility] [facility] [address] [facility] [address] [facility] [place] [facility] CBC AND DIFF (AUTO) NEUTROPHIL S/100 LEUKOCYTES IN BLOOD BY AUTOMATED COUNT 51.9 43.7 - 75.8 01/25 Specimen Type: BLOOD No comment entered. Ordering Provider: LIAM AGUILAR Report Released Date/Time: January 21, 2025 04:16 PM Reporting Lab: [facility] [place] [facility] [address] [facility] [address] Performing Lab: [facility] [place] [facility] [address] [facility] [address] [facility] [place] [facility] CBC AND DIFF (AUTO) LYMPHOCYTE S/100 LEUKOCYTES IN BLOOD BY AUTOMATED COUNT 32.4 14.0 - 42.3 01/25 Specimen Type: BLOOD No comment entered. Ordering Provider: LIAM AGUILAR Report Released Date/Time: January 21, 2025 04:16 PM Reporting Lab: [facility] [place] [facility] [address] [facility] [address] Performing Lab: [facility] [place] [facility] [address] [facility] [address] [facility] [place] [facility] CBC AND DIFF (AUTO) MONOCYTES/ 100 LEUKOCYTES IN BLOOD BY AUTOMATED COUNT 10.5 5.1 - 13.7 01/25 Specimen Type: BLOOD No comment entered. Ordering Provider: LIAM AGUILAR Report Released Date/Time: January 21, 2025 04:16 PM Reporting Lab: [facility] [place] [facility] [address] [place] [address] Performing Lab: [facility] [place] [address] [address] [facility] [place] [facility] CBC AND DIFF (AUTO) EOSINOPHIL S/100 LEUKOCYTES IN BLOOD BY AUTOMATED COUNT 4.0 0.4 - 6.8 01/25 Specimen Type: BLOOD No comment entered. Ordering Provider: LIAM AGUILAR Report Released Date/Time: January 21, 2025 04:16 PM Reporting Lab: [facility] [place] [address] [address] Performing Lab: [facility] [place] [facility] [address] [place] [address] [facility] [place] [facility] CBC AND DIFF (AUTO) BASOPHILS/ 100 LEUKOCYTES IN BLOOD BY AUTOMATED COUNT 0.9 0.1 - 2.0 01/25 Specimen Type: BLOOD No comment entered. Ordering Provider: LIAM AGUILAR Report Released Date/Time: January 21, 2025 04:16 PM Reporting Lab: [facility] [place] [address] [address] Performing Lab: [facility] [place] [facility] [address] [facility] [address] [facility] [place] [facility] CBC AND DIFF (AUTO) NEUTROPHIL S [#/VOLUME] IN BLOOD BY AUTOMATED COUNT 4.02 10*3/uL 2.20 - 7.60 01/25 Specimen Type: BLOOD No comment entered. Ordering Provider: LIAM AGUILAR Report Released Date/Time: January 21, 2025 04:16 PM Reporting Lab: [facility] [place] [facility] [address] [facility] [address] Performing Lab: [facility] [facility] [address] [facility] [address] [facility] [place] [facility] CBC AND DIFF (AUTO) LYMPHOCYTE S [#/VOLUME] IN BLOOD BY AUTOMATED COUNT 2.51 10*3/uL 1.00 - 3.20 01/25 Specimen Type: BLOOD No comment entered. Ordering Provider: LIAM AGUILAR Report Released Date/Time: January 21, 2025 04:16 PM Reporting Lab: [facility] [place] [facility] [address] [facility] [address] Performing Lab: [facility] [facility] [address] [facility] [address] [facility]ITALRL TRN [facility]ITALCHUSE TS [facility] CBC AND DIFF (AUTO) EOSINOPHIL S [#/VOLUME] IN BLOOD BY AUTOMATED COUNT 0.31 10*3/uL 0.03 - 0.44 01/25 Specimen Type: BLOOD No comment entered. Ordering Provider: LIAM AGUILAR Report Released Date/Time: January 21, 2025 04:16 PM Reporting Lab: [facility] [facility] [address] [facility] [address] Performing Lab: [facility] [place] [address] [address] [facility]ITALRL TRN [facility]ITALCHUSE TS [facility] CBC AND DIFF (AUTO) BASOPHILS [#/VOLUME] IN BLOOD BY AUTOMATED COUNT 0.07 10*3/uL 0.01 - 0.13 01/25 Specimen Type: BLOOD No comment entered. Ordering Provider: LIAM AGUILAR Report Released Date/Time: January 21, 2025 04:16 PM Reporting Lab: [facility] [place] [facility] [address] [facility] [address] Performing Lab: [facility] [place] [facility] [address] [facility] [address] [facility] [place] [facility] CBC AND DIFF (AUTO) IMMATURE GRANULOCYT ES/100 LEUKOCYTES IN BLOOD BY AUTOMATED COUNT 0.3 0.0 - 0.7 01/25 Specimen Type: BLOOD No comment entered. Ordering Provider: LIAM AGUILAR Report Released Date/Time: January 21, 2025 04:16 PM Reporting Lab: [facility] [place] [facility] [address] [facility] [address] Performing Lab: [facility] [place] [facility] [address] [facility] [address] [facility] [place] [facility] CBC AND DIFF (AUTO) IMMATURE GRANULOCYT ES [#/VOLUME] IN BLOOD BY AUTOMATED COUNT 0.02 10*3/uL 0.00 - 0.06 01/25 Specimen Type: BLOOD No comment entered. Ordering Provider: LIAM AGUILAR Report Released Date/Time: January 21, 2025 04:16 PM Reporting Lab: [facility] [place] [facility] [address] [facility] [address] Performing Lab: [facility] [place] [facility] [address] [facility] [address] [facility] [place] [facility] CBC AND DIFF (AUTO) NUCLEATED ERYTHROCYT ES/100 LEUKOCYTES [RATIO] IN BLOOD BY AUTOMATED COUNT 0.0 0.0 - 0.0 01/25 Specimen Type: BLOOD No comment entered. Ordering Provider: LIAM AGUILAR Report Released Date/Time: January 21, 2025 04:16 PM Reporting Lab: [facility] [place] [facility] [address] [facility] [address] Performing Lab: [facility] [place] [facility] [address] [facility] [address] [facility] [place] [facility] CBC AND DIFF (AUTO) NUCLEATED ERYTHROCYT ES [#/VOLUME] IN BLOOD BY AUTOMATED COUNT 0.00 10*3/uL 0.00 - 0.00 01/25 Specimen Type: BLOOD No comment entered. Ordering Provider: LIAM AGUILAR Report Released Date/Time: January 21, 2025 04:16 PM Reporting Lab: [facility] [place] [facility] [address] [facility] [address] Performing Lab: [facility] [facility] [address] [facility] [address] [facility] [place] [facility] FERRITIN FERRITIN [MASS/VOLU ME] IN SERUM OR PLASMA 38 ng/mL 20 - 300 11/05 Specimen Type: SERUM No comment entered. Ordering Provider: TRAVIS AGUERO Report Released Date/Time: Oct 14, 2024 12:52 PM Reporting Lab: [facility] [place] [address] [address] Performing Lab: [facility] [facility] [address] [facility] [address] [facility] [place] [facility] IRON & TIBC PANEL IRON BINDING CAPACITY [MASS/VOLU ME] IN SERUM OR PLASMA 351 ug/dL 204 - 475 11/05 Specimen Type: SERUM No comment entered. Ordering Provider: TRAVIS AGUERO Report Released Date/Time: Oct 14, 2024 12:52 PM Reporting Lab: [facility] [facility] [address] [facility] [address] Performing Lab: [facility] [place] [facility] [address] [facility] [address] [facility] [place] [facility] IRON & TIBC PANEL IRON [MASS/VOLU ME] IN SERUM OR PLASMA 167 ug/dL 40 - 160 11/05 H Specimen Type: SERUM No comment entered. Ordering Provider: TRAVIS AGUERO Report Released Date/Time: Oct 14, 2024 12:52 PM Reporting Lab: [facility] [place] [address] [address] Performing Lab: [facility] [place] [facility] [address] [facility] [address] [facility] [place] [facility] IRON & TIBC PANEL IRON/IRON BINDING CAPACITY.T OTAL [MASS RATIO] IN SERUM OR PLASMA 47.6 20.0 - 50.0 11/05 Specimen Type: SERUM No comment entered. Ordering Provider: TRAVIS AGUERO Report Released Date/Time: Oct 14, 2024 12:52 PM Reporting Lab: [facility] [place] [facility] [address] [facility] [address] Performing Lab: [facility] [place] [facility] [address] [facility] [address] [facility] [place] [facility] IRON & TIBC PANEL TRANSFERRI N [MASS/VOLU ME] IN SERUM OR PLASMA 266 mg/dL 200 - 360 11/05 Specimen Type: SERUM No comment entered. Ordering Provider: TRAVIS AGUERO Report Released Date/Time: Oct 14, 2024 12:52 PM Reporting Lab: [facility] [place] [facility] [address] [facility] [address] Performing Lab: [facility] [place] [facility] [address] [facility] [address] [facility] [place] [facility] CBC AND DIFF (AUTO) LEUKOCYTES [#/VOLUME] IN BLOOD BY AUTOMATED COUNT 5.02 10*3/uL 4.50 - 11.00 11/05 Specimen Type: BLOOD No comment entered. Ordering Provider: TRAVIS AGUERO Report Released Date/Time: Oct 14, 2024 12:52 PM Reporting Lab: [facility] [place] [facility] [address] [facility] [address] Performing Lab: [facility] [place] [facility] [address] [facility] [address] [facility] [place] [facility] CBC AND DIFF (AUTO) ERYTHROCYT ES [#/VOLUME] IN BLOOD BY AUTOMATED COUNT 4.56 10*6/uL 4.23 - 5.66 11/05 Specimen Type: BLOOD No comment entered. Ordering Provider: TRAVIS AGUERO Report Released Date/Time: Oct 14, 2024 12:52 PM Reporting Lab: [facility] [place] [facility] [address] [facility] [address] Performing Lab: [facility] [place] [facility] [address] [facility] [address] [facility] [place] [facility] CBC AND DIFF (AUTO) HEMOGLOBIN [MASS/VOLU ME] IN BLOOD 13.3 g/dL 12.8 - 17 11/05 Specimen Type: BLOOD No comment entered. Ordering Provider: TRAVIS AGUERO Report Released Date/Time: Oct 14, 2024 12:52 PM Reporting Lab: [facility] [place] [facility] [address] [facility] [address] Performing Lab: [facility] [place] [facility] [address] [facility] [address] [facility] [place] [facility] CBC AND DIFF (AUTO) HEMATOCRIT [VOLUME FRACTION] OF BLOOD BY AUTOMATED COUNT 40.0 39.2 - 50.4 11/05 Specimen Type: BLOOD No comment entered. Ordering Provider: TRAVIS AGUERO Report Released Date/Time: Oct 14, 2024 12:52 PM Reporting Lab: [facility] [address] [facility] [address] Performing Lab: [facility] [address] [facility] [address] [facility] CBC AND DIFF (AUTO) MCV [ENTITIC VOLUME] BY AUTOMATED COUNT 87.7 fL 82 - 99 11/05 Specimen Type: BLOOD No comment entered. Ordering Provider: TRVAIS AGUERO Report Released Date/Time: Oct 14, 2024 12:52 PM Reporting Lab: [facility] [address] [facility] [address] Performing Lab: [facility] [address] [facility] [address] [facility] CBC AND DIFF (AUTO) MCHC [MASS/VOLU ME] BY AUTOMATED COUNT 33.3 g/dL 30.8 - 35.1 11/05 Specimen Type: BLOOD No comment entered. Ordering Provider: TRAVIS AGUERO Report Released Date/Time: Oct 14, 2024 12:52 PM Reporting Lab: [facility] [place] [address] [address] Performing Lab: [facility] [place] [address] [address] [facility] [place] [facility] CBC AND DIFF (AUTO) PLATELETS [#/VOLUME] IN BLOOD BY AUTOMATED COUNT 344 10*3/uL 140 - 360 11/05 Specimen Type: BLOOD No comment entered. Ordering Provider: TRAVIS AGUERO Report Released Date/Time: Oct 14, 2024 12:52 PM Reporting Lab[facility] [address] [address] Performing Lab: [facility] [place] [address] [address] [facility] CBC AND DIFF (AUTO) ERYTHROCYT E DISTRIBUTI ON WIDTH [RATIO] BY AUTOMATED COUNT 14.5 12.0 - 16.0 11/05 Specimen Type: BLOOD No comment entered. Ordering Provider: TRAVIS AGUERO Report Released Date/Time: Oct 14, 2024 12:52 PM Reporting Lab: [facility] [place] [address] [address] Performing Lab: [facility] [place] [address] [address] [facility] [place] [facility] CBC AND DIFF (AUTO) MONOCYTES [#/VOLUME] IN BLOOD BY AUTOMATED COUNT 0.58 10*3/uL 0.30 - 1.10 11/05 Specimen Type: BLOOD No comment entered. Ordering Provider: TRAVIS AGUERO Report Released Date/Time: Oct 14, 2024 12:52 PM Reporting Lab: [facility] [address] [facility] [address] Performing Lab: [facility] [address] [facility] [address] [facility] CBC AND DIFF (AUTO) MCH [ENTITIC MASS] BY AUTOMATED COUNT 29.2 pg 26.2 - 32.6 11/05 Specimen Type: BLOOD No comment entered. Ordering Provider: TRAVIS AGUERO Report Released Date/Time: Oct 14, 2024 12:52 PM Reporting Lab: [facility] [address] [facility] [address] Performing Lab[facility] [address] [facility] [address] [facility] CBC AND DIFF (AUTO) NEUTROPHIL S/100 LEUKOCYTES IN BLOOD BY AUTOMATED COUNT 40.4 43.7 - 75.8 11/05 L Specimen Type: BLOOD No comment entered. Ordering Provider: TRAVIS AGUERO Report Released Date/Time: Oct 14, 2024 12:52 PM Reporting Lab: [facility] [address] [facility] [address] Performing Lab: [facility] [address] [facility] [address] [facility] CBC AND DIFF (AUTO) LYMPHOCYTE S/100 LEUKOCYTES IN BLOOD BY AUTOMATED COUNT 41.2 14.0 - 42.3 11/05 Specimen Type: BLOOD No comment entered. Ordering Provider: TRAVIS AGUERO Report Released Date/Time: Oct 14, 2024 12:52 PM Reporting Lab: [facility] [address] [facility] [address] Performing Lab: [facility] [address] [facility] [address] [facility] CBC AND DIFF (AUTO) MONOCYTES/ 100 LEUKOCYTES IN BLOOD BY AUTOMATED COUNT 11.6 5.1 - 13.7 11/05 Specimen Type: BLOOD No comment entered. Ordering Provider: TRAVIS AGUERO Report Released Date/Time: Oct 14, 2024 12:52 PM Reporting Lab: [facility] [address] [facility] [address] Performing Lab: [facility] [address] [facility] [address] [facility] CBC AND DIFF (AUTO) EOSINOPHIL S/100 LEUKOCYTES IN BLOOD BY AUTOMATED COUNT 5.4 0.4 - 6.8 11/05 Specimen Type: BLOOD No comment entered. Ordering Provider: TRAVIS AGUERO Report Released Date/Time: Oct 14, 2024 12:52 PM Reporting Lab: [facility] [address] [facility] [address] Performing Lab: [facility] [facility] [address] [facility] [address] [facility] CBC AND DIFF (AUTO) BASOPHILS/ 100 LEUKOCYTES IN BLOOD BY AUTOMATED COUNT 1.2 0.1 - 2.0 11/05 Specimen Type: BLOOD No comment entered. Ordering Provider: TRAVIS AGUERO Report Released Date/Time: Oct 14, 2024 12:52 PM Reporting Lab: [facility] [facility] [address] [facility] [address] Performing Lab: [facility] [facility] [address] [facility] [address] [facility] CBC AND DIFF (AUTO) NEUTROPHIL S [#/VOLUME] IN BLOOD BY AUTOMATED COUNT 2.03 10*3/uL 2.20 - 7.60 11/05 L Specimen Type: BLOOD No comment entered. Ordering Provider: TRAVIS AGUERO Report Released Date/Time: Oct 14, 2024 12:52 PM Reporting Lab: [facility] [place] [facility] [address] [facility] [address] Performing Lab: [facility] [address] [facility] [address] [facility] CBC AND DIFF (AUTO) LYMPHOCYTE S [#/VOLUME] IN BLOOD BY AUTOMATED COUNT 2.07 10*3/uL 1.00 - 3.20 11/05 Specimen Type: BLOOD No comment entered. Ordering Provider: TRAVIS AGUERO Report Released Date/Time: Oct 14, 2024 12:52 PM Reporting Lab: [facility] [address] [facility] [address] Performing Lab: [facility] [address] [facility] [address] [facility] CBC AND DIFF (AUTO) EOSINOPHIL S [#/VOLUME] IN BLOOD BY AUTOMATED COUNT 0.27 10*3/uL 0.03 - 0.44 11/05 Specimen Type: BLOOD No comment entered. Ordering Provider: TRAVIS AGUERO Report Released Date/Time: Oct 14, 2024 12:52 PM Reporting Lab: [facility] [address] [facility] [address] Performing Lab: [facility] [place] [facility] [address] [facility] [address] [facility] CBC AND DIFF (AUTO) BASOPHILS [#/VOLUME] IN BLOOD BY AUTOMATED COUNT 0.06 10*3/uL 0.01 - 0.13 11/05 Specimen Type: BLOOD No comment entered. Ordering Provider: TRAVIS AGUERO Report Released Date/Time: Oct 14, 2024 12:52 PM Reporting Lab: [facility] [address] [facility] [address] Performing Lab: [facility] [place] [facility] [address] [facility] [address] [facility] CBC AND DIFF (AUTO) IMMATURE GRANULOCYT ES/100 LEUKOCYTES IN BLOOD BY AUTOMATED COUNT 0.2 0.0 - 0.7 11/05 Specimen Type: BLOOD No comment entered. Ordering Provider: TRAVIS AGUERO Report Released Date/Time: Oct 14, 2024 12:52 PM Reporting Lab: [facility] [facility] [address] [facility] [address] Performing Lab: [facility] [facility] [address] [facility] [address] [facility] CBC AND DIFF (AUTO) IMMATURE GRANULOCYT ES [#/VOLUME] IN BLOOD BY AUTOMATED COUNT 0.01 10*3/uL 0.00 - 0.06 11/05 Specimen Type: BLOOD No comment entered. Ordering Provider: TRAVIS AGUERO Report Released Date/Time: Oct 14, 2024 12:52 PM Reporting Lab: [facility] [facility] [address] [facility] [address] Performing Lab: [facility] [facility] [address] [facility] [address] [facility] CBC AND DIFF (AUTO) NUCLEATED ERYTHROCYT ES/100 LEUKOCYTES [RATIO] IN BLOOD BY AUTOMATED COUNT 0.0 0.0 - 0.0 11/05 Specimen Type: BLOOD No comment entered. Ordering Provider: TRAVIS AGUERO Report Released Date/Time: Oct 14, 2024 12:52 PM Reporting Lab: [facility] [place] [facility] [address] [facility] [address] Performing Lab: [facility] [address] [address] [facility] CBC AND DIFF (AUTO) NUCLEATED ERYTHROCYT ES [#/VOLUME] IN BLOOD BY AUTOMATED COUNT 0.00 10*3/uL 0.00 - 0.00 11/05 Specimen Type: BLOOD No comment entered. Ordering Provider: TRAVIS AGUERO Report Released Date/Time: Oct 14, 2024 12:52 PM Reporting Lab: [facility] [place] [facility] [address] [facility] [address] Performing Lab: [facility] [address] [address] [facility] OCCULT BLOOD FIT X1 SCREEN(I N-HOUSE) HEMOGLOBIN .GASTROINT ESTINAL.LO WER [PRESENCE] IN STOOL BY IMMUNOASSA Y POSITIVE 10/11 [facility] Specimen Type: FECES No comment entered. Ordering Provider: TRAVIS AGUERO Report Released Date/Time: Oct 09, 2024 10:32 AM Reporting Lab: [facility] [place] [facility] [address] [facility] [address] Performing Lab: [facility] [place] [facility] [address] [facility] [address] [place] IRON & TIBC PANEL IRON BINDING CAPACITY [MASS/VOLU ME] IN SERUM OR PLASMA 368 ug/dL 204 - 475 10/09 Specimen Type: SERUM No comment entered. Ordering Provider: TRAVIS AGUERO Report Released Date/Time: Oct 09, 2024 10:43 AM Reporting [facility] [place] [facility] [address] [facility] [address] Performing Lab: [facility] [place] [facility] [address] [facility] [address] [place] IRON & TIBC PANEL IRON [MASS/VOLU ME] IN SERUM OR PLASMA 71 ug/dL 40 - 160 10/09 Specimen Type: SERUM No comment entered. Ordering Provider: TRAVIS AGUERO Report Released Date/Time: Oct 09, 2024 10:43 AM Reporting Lab: [facility] [place] [facility] [address] [facility] [address] Performing Lab: [facility] [place] [facility] [address] [facility] [address] [place] IRON & TIBC PANEL IRON/IRON BINDING CAPACITY.T OTAL [MASS RATIO] IN SERUM OR PLASMA 19.3 20.0 - 50.0 10/09 L Specimen Type: SERUM No comment entered. Ordering Provider: TRAVIS AGUERO Report Released Date/Time: Oct 09, 2024 10:43 AM Reporting Lab: [facility] [place] [facility] [address] [facility] [address] Performing Lab: [facility] [place] [facility] [address] [facility] [address] [employer] IRON & TIBC PANEL TRANSFERRI N [MASS/VOLU ME] IN SERUM OR PLASMA 279 mg/dL 200 - 360 10/09 Specimen Type: SERUM No comment entered. Ordering Provider: TRAVIS AGUERO Report Released Date/Time: Oct 09, 2024 10:43 AM Reporting Lab: [facility] [place] [facility] [address] [facility] [address] Performing Lab: [facility] [place] [facility] [address] [facility] [address] [facility] Vital Signs Combined list of inpatient and outpatient Vital Signs from Department of Defense and Veterans Affairs, ranging from 12 months to all on record, depending upon the facility. Vital Sign Value Date Comments Source SYSTOLIC BLOOD PRESSURE 153 03/22/20 10:32:05 [facility] [place] [facility] DIASTOLIC BLOOD PRESSURE 84 025 10:32:05 [facility] [place] [facility] PULSE OXIMETRY 96 % 03/22/2025 10:32:05 [facility] [place] [facility] PAIN 4 03/22/2025 10:32:05 [facility] [place] [facility] TEMPERATURE 97.5 03/22/2025 10:32:05 [facility] [place] [facility] PULSE 60 03/22/2025 10:32:05 [facility] [place] [facility] RESPIRATION 16 03/22/2025 10:32:05 [facility] [place] [facility] SYSTOLIC BLOOD PRESSURE 144 03/17/20 13:05:00 [facility] DIASTOLIC BLOOD PRESSURE 83 025 13:05:00 [facility] PULSE OXIMETRY 98 % 03/17/2025 13:05:00 [facility] PAIN 0 03/17/2025 13:05:00 [facility] TEMPERATURE 98 03/17/2025 13:05:00 [facility] PULSE 80 03/17/2025 13:05:00 [facility] RESPIRATION 16 03/17/2025 13:05:00 [facility] SYSTOLIC BLOOD PRESSURE 130 02/24/20 25 13:02:42 [facility] [place] [facility] DIASTOLIC BLOOD PRESSURE 70 025 13:02:42 [facility] PAIN 10 02/23/2025 13:02:42 [facility] [place] [facility] SYSTOLIC BLOOD PRESSURE 144 02/20/20 14:35:01 [facility] DIASTOLIC BLOOD PRESSURE 78 025 14:35:01 [facility] PULSE OXIMETRY 97 % 02/19/2025 14:35:01 [facility] WEIGHT 258.8 02/19/2025 14:35:01 [facility] BMI 35 kg/m2 02/19/2025 14:35:01 [facility] TEMPERATURE 96.9 02/19/2025 14:35:01 [facility] PULSE 77 02/19/2025 14:35:01 [facility] SYSTOLIC BLOOD PRESSURE 135 10/09/19 10:25:35 [facility] DIASTOLIC BLOOD PRESSURE 83 025 10:25:35 [facility] PULSE OXIMETRY 97 10/09/2024 10:25:35 [facility] WEIGHT 247 10/09/2024 10:25:35 [facility] BMI 34 kg/m2 10/09/2024 10:25:35 [facility] TEMPERATURE 96.9 10/09/2024 10:25:35 [facility] PULSE 90 10/09/2024 10:25:35 [facility] Encounters Combined list of: 1) Encounters from Department of Veterans Affairs facilities going backup to the last 18 months, not all [place] inpatient encounters are included; 2) Encounters from the Department of Defense facilities going backup to 280 months. Location Location Details Encounter Type Encounter Number Reason For Visit Attending Provider ADM Date DC Date Status Disposition Source [facility] Outpatient Encounter [id number] 10/06 [facility] Outpatient Encounter [id number] 10/08 [facility] [place] [facility] QNHP OL DIG ASSMT&MGMT 5-10 [id number] Diagnos is: ICD-10- CM M17.0 Bilater al primary osteoar thritis of knee TEP,VON S ABRAHAM 10[facility]11 [facility] [place] [facility] Out[facility] Encounter [id number] 10/12 [facility] En[facility] [id number] 10/15 [facility]counter [id number] 10[facility]15 [facility] Encounter [id number] 10/18 [facility] Encounter [id number] 10/21 [facility] Encounter [id number] 10/21 [facility] Encounter [id number] 10/29 [facility] Encounter [id number] 10/30 [facility] En[facility] [id number] 10/30 [facility] Encounter [id number] 10/31 [facility] Encounter [id number] 11/04 [facility] En[facility] [id number] 11/06 [facility] En[facility] [id number] 11/06 [facility] Encounter [id number] 11/12 [facility] Encounter [id number] 11/13 [facility] Encounter [id number] 11/14 [facility] En[facility] [id number] 11/16 [facility] En[facility] [id number] 11/19 [facility] Encounter [id number] 11/25 [facility] [place] OFFICE O/P EST MOD 30 MIN [id number] Diagnos is: ICD-10- CM F43.21 Adjustm ent disorde r with depress ed mood NARCISO,A POLINARIO 11/25 [facility] [place] Outpatient Encounter [id number] 12/02 [place] [facility] Encounter [id number] 12/02 [facility] OFFICE O/P EST HI 40 MIN [id number] Diagnos is: ICD-10- CM 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, lumbar region MICHAEL HERNANDEZ THI 12/02 [facility] En[facility] [id number] 12/03 [facility] En[facility] [id number] 12/04 [facility] En[facility] [id number] 12/16 [facility] En[facility] [id number] 12/16 [facility] Encounter [id number] 12/16 [facility] En[facility] [id number] 12/18 [facility] Encounter [id number] 12/18 [facility] En[facility] [id number] 12/19 [facility] En[facility] [id number] 12/25 [facility] En[facility] [id number] 12/26 [facility] Encounter [id number] 12/29 [facility] Encounter [id number] 12/29 [facility] Encounter [id number] 12/30 [facility] [place] O/P EST MOD 30 MIN [id number] Diagnos is: ICD-10- CM Z09 Encntr for f/u exam aft trtmt for cond oth than [address] 12/30 [place] [facility] Encounter [id number] 12/31 [facility] En[facility] [id number] 01/06 [facility] En[facility] [id number] 01/06 [facility] En[facility] [id number] 01/09 [facility] En[facility] [id number] 01/12 [facility] OFFICE O/P EST SF 10 MIN [id number] Diagnos is: ICD-10- CM M47.896 Other spondyl osis, lumbar region Meron THORNTON 01/14 [facility] En[facility] [id number] 01/15 [facility] En[facility] [id number] 01/16 [facility] En[facility] [id number] 01/19 [facility] En[facility] [id number] 01/23 [facility] Encounter [id number] 01/23 [facility] En[facility] [id number] 01/23 [facility] En[facility] [id number] 01/23 [facility] [id number] Diagnos is: ICD-10- CM Z13.6 Encount er for screeni ng for cardiov ascular disorde rs MCKAY,PAR UL U 01[facility] EST [place] 40 MIN [id number] Diagnos is: ICD-10- CM G40.89 Other seizure s RAY,DA VID A 01/23 [place] [facility] Encounter [id number] 01/23 [facility] En[facility] [id number] 01/27 [facility] En[facility] [id number] 01/28 [facility] En[facility] [id number] 01/29 [facility] En[facility] [id number] 01/29 [facility] Encounter [id number] 01/31 [facility] COMPRE OPH EXAM EST PT 1/> [id number] Diagnos is: ICD-10- CM 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, bilater al, severe stage DEVIN TUTTLE 02/02 [facility] FIT SPECTACLES MONOFOCAL [id number] Diagnos is: ICD-10- CM Z46.0 Encount er for fit/adj st of spectac les and contact lenses DEVIN TUTTLE 02/02 [facility] Out[facility] Encounter [id number] 02/04 [facility] Out[facility] Encounter [id number] 02/05 [facility] OFFICE O/P EST LOW 20 MIN [id number] Diagnos is: ICD-10- CM L60.3 Nail dystrop hy LORENA SHELLEY ES F 02/05 [place] [facility] OFFICE O/P EST HI 40 MIN [id number] Diagnos is: ICD-10- CM M46.1 Sacroil iitis, not elsewhe re classif ied MICHAEL HERNANDEZ THI 02/13 [facility] En[facility] [id number] 02/13 [facility] OFFICE O/P EST LOW 20 MIN [id number] Diagnos is: ICD-10- CM M47.897 Other spondyl osis, lumbosa cral region Meron THORNTON 02/23 [facility] En[facility] [id number] 02/23 [facility] En[facility] [id number] 02/24 [facility] Encounter [id number] 03/06 [facility] REPLACEMEN T FACEMASK INTERFA [id number] Diagnos is: ICD-10- CM G47.33 Obstruc tive sleep apnea (adult) (pediat minerva) GRAYSON DOWELL 03/07 [facility] En[facility] [id number] 03/10 [facility] OFFICE O/P EST LOW 20 MIN [id number] Diagnos is: ICD-10- CM M17.0 Bilater al primary osteoar thritis of knee Meron THORNTON 03/16 [facility] Outpatient Encounter [id number] 03/23 [facility] OFFICE O/P EST MOD 30 MIN [id number] Diagnos is: ICD-10- CM Z08 Encntr for follow- up exam after trtmt for maligna nt neoplas m Felipa STUART 03/23 [place] [facility] OFFICE O/P EST HI 40 MIN [id number] Diagnos is: ICD-10- CM M47.896 Other spondyl osis, lumbar region HERNANDEZ,MICHAEL BARI [facility] 04/15 [facility] Outpatient [facility]counter [id number] [facility] Out[facility]counter [id number] [facility] Out[facility]counter [id number] 05/07 [facility] Out[facility]counter [id number] 05/15 [facility] Out[facility]counter [id number] 05/16 [facility] Out[facility] Encounter [id number] 05/26 [facility] [place] PSYTX W PT 30 MINUTES [id number] Diagnos is: ICD-10- CM F32.A Depress ion, unspeci fied VINOCOUR,J ILL M 06/04 [place] [facility] Outpatient Encounter [id number] 1.06/11 [facility] [place] PSYTX W PT 30 MINUTES [id number] Diagnos is: ICD-10- CM F51.01 Primary insomni a VINOCOUR,J ILL M 06/25 [facility] EST MOD 30 MIN [id number] Diagnos is: ICD-10- CM L60.3 Nail dystrop hy ROSS,CHARL ES F 06/25 [place] [facility] Outpatient Encounter [id number] 07/14 [facility] Out[facility] Encounter [id number] 07/14 [facility] Out[facility]counter [id number] 07/14 [facility] Out[facility] Encounter [id number] 07/20 [facility] INTRM OPH EXAM EST PATIENT [id number] Diagnos is: ICD-10- CM 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, bilater al, severe stage MERHAR,DEVIN H B 07/30 [facility] Out[facility] Encounter [id number] 07/30 [facility] FIT SPECTACLES MONOFOCAL [id number] Diagnos is: ICD-10- CM Z46.0 Encount er for fit/adj st of spectac les and contact lenses DEVIN TUTTLE 07/31 [facility] Out[facility] Encounter [id number] 08/05 [facility] [place] OFF/OP EST DECEMBER X REQ PHY/QHP [id number] Diagnos is: ICD-10- CM M54.50 Low back pain, unspeci fied HARPAL,ER IC K 08/05 [place] [facility] Outpatient Encounter [id number] 08/10 [facility] [place] OFF/OP EST DECEMBER X REQ PHY/QHP [id number] Diagnos is: ICD-10- CM R09.81 Nasal congest ion HARPAL,ER IC K 08/17 [place] [facility] Out[facility] Encounter [id number] 08/17 [facility] [facility] En[facility] [id number] 08/24 [facility] En[facility] [id number] 08/28 [facility] OFFICE O/P EST HI 40 MIN [id number] Diagnos is: ICD-10- CM M47.896 Other spondyl osis, lumbar region MICHAEL HERNANDEZ 09/02 [facility] Outpatient Encounter [id number] [facility] OFFICE O/P EST LOW 20 MIN [id number] Diagnos is: ICD-10- CM M17.0 Bilater al primary osteoar thritis of knee Meron THORNTON 09/23 [facility] Outpatient Encounter [id number] 10/09 [facility] [place] OFF[place] O/P EST MOD 30 MIN [id number] Diagnos is: ICD-10- CM G47.33 Obstruc tive sleep apnea (adult) (pediat minerva) CELESTE AGUERO 10/09 [facility] Outpatient Encounter [id number] 10/14 [facility] NQHP OL DIG ASSMT&MGMT 21+ [id number] Diagnos is: ICD-10- CM Z12.2 Encntr screen for maligna nt neoplas m of respira tory organs MASON GLASGOW 10/15 [facility] [place] OFF[place] O/P EST LOW 20 MIN [id number] Diagnos is: ICD-10- CM L60.3 Nail dystrop hy LORENA SHELLEY F 11/05 [place] [facility] Encounter [id number] 11/05 [facility] [place] PSYCH DIAGNOSTIC EVALUATION [id number] Diagnos is: ICD-10- CM F51.01 Primary insomni a BOWEN RODRÍGUEZ K 11/09 [place] [facility] Encounter [id number] BOWEN RODRÍGUEZ K 11/09 [facility] Encounter [id number] 11/10 [facility] NQHP OL DIG ASSMT&MGMT 11-20 [id number] Diagnos is: ICD-10- CM Z12.2 Encntr screen for maligna nt neoplas m of respira tory organs PUCHALSKI, RADHA L 11/10 [facility] Encounter [id number] 11/16 [facility] [place] PSY[place] W PT 45 MINUTES [id number] Diagnos is: ICD-10- CM F51.01 Primary insomni a BOWEN RODRÍGUEZ K 11/16 [place] [facility] Out[facility] Encounter [id number] 11/16 [facility] Encounter [id number] BOWEN RODRÍGUEZ K 11/16 [facility] [place] PSYTX W PT 45 MINUTES [id number] Diagnos is: ICD-10- CM F51.01 Primary insomni a BOWEN RODRÍGUEZ 11/23 [facility] Encounter [id number] 11/23 [facility] Encounter [id number] BOWEN RODRÍGUEZ 11/23 [facility] Encounter [id number] 11/23 [facility] Encounter [id number] 11/23 [facility] Encounter [id number] 11/23 [facility] Encounter [id number] 11/27 [facility] PSYTX W PT 45 MINUTES [id number] Diagnos is: ICD-10- CM F51.01 Primary insomni a BOWEN RODRÍGUEZ 11/30 [facility] Outpatient Encounter [id number] BOWEN RODRÍGUEZ 11/30 [facility] SYNCH AUDIO-ONLY NEW LOW 30 [id number] Diagnos is: ICD-10- CM G47.33 Obstruc tive sleep apnea (adult) (pediat minerva) BALTAZAR SETHI 11/30 [facility] COLLJ & INTERPJ DATA EA 30 D [id number] Diagnos is: ICD-10- CM G47.33 Obstruc tive sleep apnea (adult) (pediat minerva) CAMRYN KEENAN Nichelle 11/30 [place] PSYTX W PT 60 MINUTES [id number] Diagnos is: ICD-10- CM F51.01 Primary insomni a BOWEN RODRÍGUEZ 12/07 [place] [facility] Out[facility] Encounter [id number] BOWEN RODRÍGUEZ 12/07 [facility] Encounter [id number] [facility] Encounter [id number] [facility] Encounter [id number] 01/07 [facility] Encounter [id number] 01/08 [facility] Encounter [id number] [facility] Encounter [id number] [facility] Encounter [id number] [facility] Encounter [id number] 01/19 [facility] [id number] 01/20 [facility] NQHP OL DIG ASSMT&MGMT 5-10 [id number] Diagnos is: ICD-10- CM I1A.0 Resista nt hyperte nsion SOVEROW,CH RISTY A 01/21 [facility] Encounter [id number] 01/22 [facility] Encounter [id number] 01/25 [facility] Encounter [id number] 01/26 [facility] OFFICE O/P EST MOD 30 MIN [id number] Diagnos is: ICD-10- CM N40.0 Benign prostat ic hyperpl eder without lower urinry tract symp CHRISTOPHER,SA RAH 01/26 [facility] Encounter [id number] 01/26 [facility] Out[facility] Encounter [id number] 02/02 [facility] Out[facility] Encounter [id number] 02/02 [facility] Out[facility] Encounter [id number] 02/04 [facility] OFFICE O/P EST MOD 30 MIN [id number] Diagnos is: ICD-10- CM K92.2 Gastroi ntestin al hemorrh age, unspeci fied CELESTE AGUERO RAMIRO 02/19 [facility] Outpatient Encounter [id number] CELESTE AGUERO RAMIRO 02/19 [facility] Outpatient Encounter [id number] [facility] OFFICE O/P EST MOD 30 MIN [id number] Diagnos is: ICD-10- CM M17.12 Unilate ral primary osteoar thritis , left knee Meron THORNTON 02/23 [facility] Outpatient Encounter [id number] 02/23 [facility] Outpatient Encounter [id number] 02/25 [facility] OFFICE O/P EST LOW 20 MIN [id number] Diagnos is: ICD-10- CM L60.3 Nail dystrop hy LORENA SHELLEY F 03/03 [facility] Outpatient Encounter [id number] 03/10 [facility] Outpatient Encounter [id number] 03/10 [facility] [place] OFF/OP EST MAY X REQ PHY/QHP [id number] Diagnos is: ICD-10- CM 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 MARCOS LYN O 03/10 [facility] [place] [facility] PSYCHOTHER APY [id number] Diagnos is: ICD-10- CM F10.21 Alcohol depende nce, in remissi on BRENNEN DEL VALLE E 03/10 [facility] [place] OFF/OP EST MAY X REQ PHY/QHP [id number] Diagnos is: ICD-10- CM R21 Rash and other nonspec ific skin eruptio n HARPAL,ER IC K 03/17 [facility] [place] OFF[place] O/P EST MOD 30 MIN [id number] Diagnos is: ICD-10- CM B35.4 Tinea corpori s THAKKARELYSE 03/17 [facility] Outpatient Encounter [id number] 03/17 [facility] PSYCH DIAGNOSTIC EVALUATION [id number] Diagnos is: ICD-10- CM F11.20 Opioid depende nce, uncompl icated LOVELY CHOUDHURY 03/22 [facility] Outpatient Encounter [id number] LOVELY CHOUDHURY 03/22 [facility] OFFICE O/P EST LOW 20 MIN [id number] Diagnos is: ICD-10- CM M17.0 Bilater al primary osteoar thritis of knee Meron THORNTON 03/22 [facility] Outpatient Encounter [id number] 03/25 [facility] Outpatient Encounter [id number] Carroll SMITHWILLNora 03/30 [facility] PSYTX W PT 30 MINUTES [id number] Diagnos is: ICD-10- CM F11.20 Opioid depende nce, uncompl icated JAD HALE JOSE 03/31 [facility] Social History Combined list of available smoking, tobacco, and other social history from Department of Defense and Veterans Affairs facilities. Social History Type Response Date Comment Sourc e Tobacco smoking status IAIS VA-TOBACCO USE FORMER CIGARETTES 01/26/2025 [facility] [facility] History of tobacco use SD-TOBACCO NEVER USED OTHER TYPE 01/[facility]/2025 [facility] History of tobacco use VA-TOBACCO FORMER USER 11/26/2023 [facility] History of tobacco use VA-TOBACCO USER EVERY DAY 12/04/2022 [facility] History of tobacco use VA-TOBACCO USER EVERY DAY 09/20/2021 [facility] History of tobacco use SD-TOBACCO USE WI 30 MIN OF WAKEUP 10/06/2020 [facility] History of tobacco use SD-TOBACCO DOESNT USE WI 30 MIN WAKEUP 11/17/2018 [facility] History of tobacco use CURRENT SMOKER 11/29/2017 1/2 ppd [facility] Plan of Care List of future care activities from Department of Veterans Affairs facilities. Additional future care activities may be listed in the Assessment and Plan section. Date/Time Care Activity Care Activity Detail Facili ty 04/28/2025 AMBULATORY - PSYCHIATRY AMBULATORY - PSYC HIATRY [facility] Advance Directives List of completed, amended, or rescinded Advance Directives on record at Department of Veterans Affairs facilities. An actual copy of the Directive is not included. Date Advance Directive Provider Source 01/10/2021 [facility]VANCE DIRECTIVE DENNISE BRO
[2025-04-02 15:42] VITALS: PULSE 56; RESP 22; TEMP 36.4; O2SAT 98; BMI 34.2
--- NOTE | 2025-04-02 15:44 | ED_ITS ---
HPI - General Adult General Chief complaint: Nausea/Vomiting/Diarrhea Stated complaint: abd pain Time Seen by Provider: 04/02/25 16:08 Source: patient, RN notes reviewed and old records reviewed Mode of arrival: ambulatory Limitations: no limitations History of Present Illness ED Provider: Shane HPI narrative: Patient is a 69-year-old male with history of SCHULTZ, splenectomy, pancreatectomy, BPH, anemia, obesity, upper GI bleed presenting to the emergency department with complaint of left upper quadrant abdominal pain which began last night and has since radiated across to the right side of his abdomen. He reports 1 episode of vomiting at home. Arrived to triage diaphoretic, as he was being brought to ED room in a wheelchair he had an additional episode of vomiting and diarrhea. Nursing staff reports that the emesis looked like stool. He denies any known sick contacts. Denies chest pain, palpitations. Reports mild dyspnea. MD complaint: abdominal pain, nausea, vomiting Onset (ago): hour(s) Related Data Home Medications ?Medication ?Instructions ?Recorded ?Confirmed brinzolamide 1 %-brimonidine 0.2 % 1 drp ophthalmic (e ye) BID 01/07/25 01/07/25 eye drops,suspension (Simbrinza) hydroxyzine HCl 25 mg tablet 25 mg PO BEDTIME PRN Inso mnia 01/07/25 01/07/25 tadalafil 20 mg tablet 20 mg PO DAILY 01/07/2512/24 omeprazole 40 mg capsule,delayed 40 mg PO DAILY@0630 0 04/02/25 04/02/25 release Previous Rx's ?Medication ?Instructions ?Recorded lisinopril 20 mg tablet 20 mg PO DAILY #0 tabs 01/14 metoprolol succinate 50 mg 50 mg PO DAILY #0 tabs 12/25 10/20 tablet,extended release 24 hr finasteride 5 mg tablet 5 mg PO DAILY 90 days #90 ta bs 01/22/25 tamsulosin 0.4 mg capsule 0.4 mg PO BEDTIME #30 caps 0 02/02/25 ferrous gluconate 324 mg (38 mg 324 mg PO DAILY #90 ta bs 02/24/25 iron) tablet Allergies Allergy/AdvReac Type Severity Reaction Status Date / Time No Known Allergies Allergy Verified 04/02/25 15:44 Review of Systems 2 Review of Systems: As per HPI Yes all other systems are reviewed and are negative Constitutional: Constitutional: Reports as per HPI [facility] Past Medical History Medical History (Updated 04/02/25 @ 20:43 by Vikram Murphy) Partial small bowel obstruction BPH (benign prostatic hyperplasia) Hypertension Upper GI bleed SCHULTZ (nonalcoholic steatohepatitis) Erectile dysfunction Chronic hepatitis C virus genotype 1a infection Surgical History (Updated 02/23/25 @ 09:32 by CHANCE Berg) History of esophagogastroduodenoscopy (EGD) History of pancreatectomy Hx of splenectomy Social History Social History Household Members: Unknown / Unable to assess Housing: Unknown / Unable to assess Are you a primary healthcare analyst to a significant other at home: No Comment: bilateral wrist restraints for airway safety Patient Tobacco Use Status: Never used Tobacco Smoked in Last 30 Days: No Use of substances other than those prescribed or required for medical reasons: No Advance Directives: No Advance Directives Information Provided: No service: Yes Physical Exam ED Vital Signs: Vital Signs - 24 hr 04/02/25 15:42 04/02/25 16:00 04/02/25 18:24 Temperature 97.5 F Pulse Rate 56 63 Respiratory Rate 22 H 14 Blood Pressure 143/61 H 181/74 H Pulse Oximetry 98 95 Oxygen Delivery Method Room Air BMI result Body Mass Index 34.2 Vital signs have been reviewed and appear to be correct. Blood pressure normal. Heart rate normal. Respiratory rate normal. Temperature normal. Oxygen saturation normal. Const General: cooperative, no acute distress and diaphoretic Nutritional Appearance: obese Orientation/consciousness: oriented to person, oriented to place, oriented to time and patient oriented x3 Limitations: no limitations [facility] Head: Yes normocephalic and Yes atraumatic Ears: external ears normal General nose exam: Normal external nose present Face and sinus: Yes face symmetric Mouth: oropharynx normal and moist mucous membranes Throat: Yes uvula midline Eyes Pupils: Equal, round and reactive pupils present Neck Neck: Yes normal visual inspection and Yes supple Resp Effort & Inspection: normal respiratory effort and able to speak in complete sentences Auscultation: clear to auscultation bilaterally Cardio Rate: regular rate Rhythm: regular rhythm Heart sounds: S1 normal heart sound present and S2 normal heart sound present GI Inspection: Yes obesity Palpation (GI): Soft to palpation and Tenderness to palpation present (GI) in the LUQ Auscultation: normoactive bowel sounds General: Yes no CVA tenderness Back/Spine/Pelvis Back: no CVA tenderness Skin General skin exam: elasticity normal and turgor normal Neuro General: oriented to person, oriented to place, oriented to time, patient oriented x3, moves all extremities, no focal motor deficits and CN's II-XI intact bilaterally Cranial nerves: Yes Equal, round and reactive pupils present Cognition (Neuro): normal cognition Extrem General: Yes full ROM, Yes no pedal edema and Yes no calf tenderness Psych Mental Status: mental status grossly normal Affect: normal affect Thought process: Normal thought process present Course Course Course Narrative: RME performed by Yusra Ruiz PA-C. Patient is a 69 year old assigned male at presenting to the emergency department with abdominal pain. Patient states his entire abdomen hurts and he has been vomiting since last night. Detailed physical exam and review of systems are deferred to the nurse clinician. EKG, labs, and swabs ordered. 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 Reevaluation(s) Reevaluation #1: 8:41 PM 04/02/2025 (Zayra NIELSEN): Patient was signed out to this provider at shift change, in summary the patient is a 69-year-old male presenting to the ED for nausea, vomiting, and abdominal pain with concern for possible SBO. Patient's CT abdomen and pelvis was pending at time of sign-out. Patient's case had already been discussed with the surgical service, specifically Dr. Navas. Plan for patient to likely be admitted pending confirmation of SBO on CT. At this time the patient's CT has resulted in confirms SBO, patient will be admitted to Dr. Navas. Medications Administered Generic Name Dose Route Start Last Admin Trade Name Freq PRN Reason Stop Dose Admin Lactated Ringer's 1,000 mls @ 100 mls/hr 04/02/25 20:15 04/02/25 20:33 Lr IVCONT 100 mls/hr .Q10H ZHANG Administration Morphine Sulfate 2 mg 04/02/25 20:13 04/02/25 20:33 Morphine Sulfate 4 Mg/Ml Cartridge IVPUSH 2 mg Q4H PRN Administration Pain, Severe (Pain Scale 7-10) Protocol Discontinued Medications Generic Name Dose Route Start Last Admin Trade Name Freq PRN Reason Stop Dose Admin Hydralazine HCl 10 mg 04/02/25 20:30 04/02/25 21:20 Hydralazine Hcl 20 Mg/Ml Vial IVPUSH 04/02/25 20:31 Not Given ONCE ONE Protocol Sodium Chloride 1,000 mls @ 999 mls/hr 04/02/25 18:15 04/02/25 19:48 Ns IV 04/02/25 19:15 Infused .Q1H1M ZHANG Infusion Iohexol 85 ml 04/02/25 18:47 04/02/25 18:48 Iohexol 350 Mg/Ml 100 Ml Infus..Btl IV 04/02/25 18:48 85 ml ONCE ONE Administration Morphine Sulfate 4 mg 04/02/25 18:15 04/02/25 18:20 Morphine Sulfate 4 Mg/Ml Cartridge IVPUSH 04/02/25 18:16 4 mg ONCE ONE Administration Protocol Ondansetron HCl 4 mg 04/02/25 18:15 04/02/25 18:20 Ondansetron Hcl 4 Mg/2 Ml Vial IVPUSH 04/02/25 18:16 4 mg ONCE ONE Administration Ondansetron HCl 4 mg 04/02/25 19:53 04/02/25 19:56 Ondansetron Hcl 4 Mg/2 Ml Vial IVPUSH 04/02/25 19:54 4 mg ONCE ONE Administration Medical Decision Making Medical Decision Making [facility] Narrative: Patient is a 69-year-old male with history of SCHULTZ, splenectomy, pancreatectomy, BPH, anemia, obesity, upper GI bleed presenting to the emergency department with complaint of left upper quadrant abdominal pain which began last night and has since radiated across to the right side of his abdomen. On exam patient is awake, A+Ox3, VS WNL, afebrile, normal neurological exam without focal deficits, physical exam findings as above. Given reported symptoms and physical exam findings, initial differential includes but is not limited to bowel obstruction, abscess, perforation, diverticulitis, gastroenteritis, electrolyte abnormality. Labs notable for mild leukocytosis. Discussed with Dr. Navas that patient is clinically consistent with SBO, will follow back up once CT results are back. Patient signed out to GIA Hernandez pending imaging. Differential Diagnosis Differential Diagnoses: The differential diagnosis associated with the presentation includes As per [facility] Admission/Observation Consideration of admission/observation: Escalation of care including admission/observation considered Consult Healthcare Provider Management of the patient was discussed with: Poiser Balance (Dr. Navas) Lab Data [facility] Lab Attestation statement: I reviewed the patient's lab results. as per [facility] 04/02/25 17:21 04/02/25 17:21 Labs: Lab Results 04/02/25 Range/Units 17:21 WBC 11.2 H (4.8-10.8) X10*3/uL RBC 4.67 D (4.60-5.80) X10*6/uL Hgb 13.3 L D (14.0-18.0) g/dl Hct 40.2 L D (42.0-52.0) % MCV 86.1 (80.0-98.0) fL MCH 28.5 (27.0-33.0) pg MCHC 33.1 (31.0-36.0) g/dl RDW 15.1 (11.0-16.0) % Plt Count 264 D (160-400) X10*3/uL MPV 8.6 L (9.4-12.4) fL Immature Gran % (Auto) 0.4 (0.0-0.4) % Neut % (Auto) 77.9 H (45-73) % Lymph % (Auto) 13.2 L (20-40) % Burke % (Auto) 7.4 (2-11) % Eos % (Auto) 0.7 (0-4) % Baso % (Auto) 0.4 (0-2) % Lymph # (Auto) 1.5 (1.2-4.9) X10*3/uL Burke # (Auto) 0.8 (0.1-1.2) X10*3/uL Eos # (Auto) 0.1 (0.0-0.4) X10*3/uL Baso # (Auto) 0.0 (0.0-0.2) X10*3/uL Abs Immat Gran (auto) 0.04 H (0.00-0.03) X10*3/uL Absolute Neuts (auto) 8.7 H (2.0-8.3) x10*3/uL Absolute Nucleated RBC 0.000 (0.0-0.012) X10*3/uL Nucleated RBC % (auto) 0.0 (0.0-0.2) /100WBC PT 11.6 (10.9-12.4) SEC INR 1.0 (0.9-1.1) Sodium 141 (135-145) mmol/L Potassium 4.1 (3.3-5.1) mmol/L Chloride 114 H (96-108) mmol/L Carbon Dioxide 19 L (22-29) mmol/L Anion Gap 12 (12-20) BUN 16 (9-16) mg/dL Creatinine 0.94 (0.5-1.4) mg/dL Estim Creat Clear Calc 96.8 Estimated GFR > 60 Random Glucose 117 H (60-115) mg/dL Calcium 8.9 (8.4-10.2) mg/dL Magnesium 2.3 (1.6-2.6) mg/dL Total Bilirubin 0.3 (0.0-1.0) mg/dL AST 49 H (5-37) U/L ALT 18 (0-40) U/L Alkaline Phosphatase 87 (39-117) U/L Troponin I High Sens < 2.7 (<3.5-35.0) ng/L Total Protein 7.6 (6.5-8.0) g/dL Albumin 4.2 (3.5-5.0) g/dL Influenza Type A (PCR) NEGATIVE (Negative) Influenza Type B (PCR) NEGATIVE (Negative) RSV RNA Qual (PCR) NEGATIVE (Negative) SARS-CoV-2 RNA (RT-PCR) NEGATIVE (Negative) External Record Review External record reviewed: Inpatient record, Office record and Outpatient record Discharge Plan Discharge Clinical Impression: Abdominal pain, Nausea, vomiting, and diarrhea, Small bowel obstruction Patient Disposition: Admitted As Inpatient
--- NOTE | 2025-04-02 15:45 | ECG_ITS ---
Test Reason : ABD PAIN Blood Pressure : */* mmHG Vent. Rate : 58 BPM Atrial Rate : 58 BPM P-R Int : 144 ms QRS Dur : 98 ms QT Int : 442 ms P-R-T Axes : 72 -6 31 degrees QTcB Int : 433 ms Sinus bradycardia Cannot rule out Anterior infarct , age undetermined - could be related to body habitus and lead placement Borderline ECG When compared with ECG of 06-Jan-2025 23:05, Vent. rate has decreased by 41 bpm Nonspecific T wave abnormality no longer evident in Lateral leads Referred By: Yusra Ruiz Electronically Signed By: SOUMYA RESENDEZ
[2025-04-02 16:00] VITALS: BP 143/61
--- OUTSIDE RECORDS SUMMARY | 2025-04-02 16:19 | XMS_ITS | Encounter Summary ---
Author Organization [employer] Address [address] [place] [address] Care Team Providers Care Tube Coater Name Role Phone Unavailable Primary Care Provider Unavailabl e Encounter Details Date Type Department Care Team (Late st Contact Info) Description 04/02/2024 Telephone [facility] [address], [place] [phone] Jersey Kenney DMD [address] [place] [phone] Social History Tobacco Use Types Packs/Day Years [...] Description 04/07/2025 10:00 AM EDT Office Visit [facility] [address] [place] [address] Pao Bassett [address] [place] [address] [phone] documented as of this encounter Visit Diagnoses Not on filedocumented in this encounter
--- NOTE | 2025-04-02 17:27 | PC.NURSE ---
diff stick, bloodwork obtained after numerous attempts.
[2025-04-02 17:28] LABS: MANUAL DIFF FLAG NO
[2025-04-02 17:34] LABS: Hematocrit 40.2 % (42.0-52.0); Hemoglobin 13.3 g/dl (14.0-18.0); Imm Gran Abs Auto 0.04 X10*3/uL (0.00-0.03); Imm Gran Pct Auto 0.4 % (0.0-0.4); Lymphocytes Absolute Auto 1.5 X10*3/uL (1.2-4.9); Mean Corpuscular HGB Conc 33.1 g/dl (31.0-36.0); Mean Corpuscular Hemoglobin 28.5 pg (27.0-33.0); Mean Corpuscular Volume 86.1 fL (80.0-98.0); NRBC Abs Auto 0.000 X10*3/uL (0.0-0.012); NRBC Pct Auto 0.0 /100WBC (0.0-0.2); Platelet Count 264 X10*3/uL (160-400); Red Blood Count 4.67 X10*6/uL (4.60-5.80); White Blood Count 11.2 X10*3/uL (4.8-10.8)
[2025-04-02 17:46] LABS: Alanine Aminotransferase 18 U/L (0-40); Albumin Level 4.2 g/dL (3.5-5.0); Alkaline Phosphatase 87 U/L (39-117); Anion Gap 12 (12-20); Aspartate Amino Transferase 49 U/L (5-37); Blood Urea Nitrogen 16 mg/dL (9-16); Calcium 8.9 mg/dL (8.4-10.2); Carbon Dioxide 19 mmol/L (22-29); Chloride 114 mmol/L (96-108); Creatinine Clr Calc Pharmacy 96.8; Estimated Glomerular Filt Rate > 60; Magnesium 2.3 mg/dL (1.6-2.6); Potassium 4.1 mmol/L (3.3-5.1); Sodium 141 mmol/L (135-145); Total Protein 7.6 g/dL (6.5-8.0)
[2025-04-02 17:48] LABS: INTERNATIONAL NORM RATIO 1.0 (0.9-1.1); Prothrombin Time 11.6 SEC (10.9-12.4)
[2025-04-02 17:53] LABS: Troponin-I High Sensitivity < 2.7 ng/L (<3.5-35.0)
[2025-04-02 18:07] LABS: Resp Syncy Virus RNA Qual PCR NEGATIVE (Negative); SARS COV2 PCR INHOUSE NEGATIVE (Negative)
[2025-04-02 18:24] VITALS: BP 181/74; PULSE 63; RESP 14; O2SAT 95
[2025-04-02] MEDS: iohexoL 350 MG/ML 100 ML INFUS..BTL 85 ML IV (18:48)
--- NOTE | 2025-04-02 20:20 | PM.HPGS ---
History of Present Illness History of Present Illness Date of Service: 04/07/25 Chief complaint: partial small bowel obstruction Narrative: Rancho Baeza is a 69 year old male here in the ED for abdominal pain and vomitting x 2 days. He says that this started yesterday, with pain described as diffuse although starting on the left side. He had 2 episodes of vomitting earlier today. He also describes having watery stools earlier.He says his pain had gone from the left side to the right side. He says this this seems to be constant. He admits to some continuing pain although this is better. 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 He was admitted for upper GI bleed last December 2024, and this was controlled with IR embolization. Review of Systems Constitutional: Constitutional: Denies chills and Denies fever(s) Cardiovascular: Cardiovascular: Denies chest pain, Denies dyspnea and Denies dyspnea on exertion Respiratory: Respiratory: Denies cough, Denies dyspnea and Denies dyspnea on exertion Gastrointestinal: Gastrointestinal: Denies hematochezia and Denies change in bowel habits Genitourinary: Genitourinary: Denies hematuria and Denies difficulty urinating Musculoskeletal: Musculoskeletal: Denies back pain and Denies limited range of motion Neurologic: Denies focal weakness and Denies convulsions Psychiatric: Psychiatric: Denies depression and Denies mood swings PMFSH Past Medical History Medical History Right upper quadrant pain Partial small bowel obstruction BPH (benign prostatic hyperplasia) Hypertension Upper GI bleed SCHULTZ (nonalcoholic steatohepatitis) Erectile dysfunction Chronic hepatitis C virus genotype 1a infection Surgical History Surgical History History of esophagogastroduodenoscopy (EGD) History of pancreatectomy Hx of splenectomy Social History Social History Household Members: Family Housing: House Are you a primary intensive care specialist to a significant other at home: No Do you presently have visiting nurse or other home services: No Comment: bilateral wrist restraints for airway safety Patient Tobacco Use Status: Former Tobacco user service: Yes Meds Allergies Allergy/AdvReac Type Severity Reaction Status Date / Time No Known Allergies Allergy Verified 04/02/25 15:44 Active Medications: Current Medications Acetaminophen (Acetaminophen 325 Mg Tablet) 650 mg PO Q6H PRN PRN Reason: Pain, Mild 1-3,fever,headache Heparin Sodium (Porcine) (Heparin Sodium,Porcine 5,000 Unit/Ml Vial) 5,000 unit SUBCUT Q12H [facility] Lactated Ringer's (Lr) 1,000 mls @ 100 mls/hr IVCONT .Q10H [facility] Lisinopril (Lisinopril 20 Mg Tablet) 20 mg PO DAILY [facility]; Protocol Melatonin (Melatonin 3 Mg Tablet) 6 mg PO BEDTIME PRN PRN Reason: Insomnia Metoprolol Succinate (Metoprolol Succinate Er 50 Mg Tab.Er.24h) 50 mg PO DAILY [facility]HANG; Protocol Morphine Sulfate (Morphine Sulfate 4 Mg/Ml Cartridge) 2 mg IVPUSH Q4H PRN; Protocol PRN Reason: Pain, Severe (Pain Scale 7-10) Ondansetron HCl (Ondansetron Hcl 4 Mg/2 Ml Vial) 4 mg IVPUSH Q8H PRN PRN Reason: Nausea and Vomiting Sodium Chloride (0.9 % Sodium Chloride Flush 3 Ml Syringe) 3 ml IVFLUSH QSHIFT [facility] Home Medications ?Medication ?Instructions ?Recorded ?Confirmed ?Last Taken ?Type brinzolamide 1 %-brimonidine 0.2 % 1 drp ophthalmic (eye) BID 01/07/25 04/02/25 04/02/25 History eye drops,suspension (Simbrinza) hydroxyzine HCl 25 mg tablet 25 mg PO BEDTIME PRN Insomnia 01/07/25 04/02/25 Unknown History tadalafil 20 mg tablet 5 mg PO DAILY 01/07/25 04/02/25 04/02/25 History omeprazole 40 mg capsule,delayed 40 mg PO DAILY@0630 04/02/25 04/02/25 04/02/25 History release Physical Exam Vital Signs: Vital Signs: Last Vital Signs Temp 97.5 F 04/02/25 15:42 Pulse 63 04/02/25 18:24 Resp 14 04/02/25 18:24 BP 181/74 H 04/02/25 18:24 Pulse Ox 95 04/02/25 18:24 O2 Del Method Room Air 04/02/25 18:24 BMI result Body Mass Index 34.2 Const: General: comfortable and no acute distress Orientation/consciousness: patient oriented x3 Neck: Neck: Yes no lymphadenopathy Resp: Auscultation: clear to auscultation bilaterally Cardio: Rhythm: regular rhythm GI: Other: mild diffuse tenderness Palpation (GI): Soft to palpation, not firm, Tenderness to palpation present (GI) and no guarding Neuro: General: patient oriented x3 Results Results Labs: Short CBC 04/02/25 Range/Units 17:21 WBC 11.2 H (4.8-10.8) X10*3/uL Hgb 13.3 L D (14.0-18.0) g/dl Hct 40.2 L D (42.0-52.0) % Plt Count 264 D (160-400) X10*3/uL BMP 04/02/25 17:21 Sodium 141 Potassium 4.1 Chloride 114 H Carbon Dioxide 19 L BUN 16 Creatinine 0.94 Calcium 8.9 Liver Function 04/02/25 Range/Units 17:21 Total Bilirubin 0.3 (0.0-1.0) mg/dL AST 49 H (5-37) U/L ALT 18 (0-40) U/L Alkaline Phosphatase 87 (39-117) U/L Albumin 4.2 (3.5-5.0) g/dL Assessment and Plan (1) Partial small bowel obstruction: Status: Acute 68M with abdominal pain and vomitting, with CT findings suggestive of mid to distal SBO. He does have good amount of air distally, including in the colon. His abdominal exam is benign overall. His PSBO is likely from adhesions from his previous surgery with pancreatectomy and splenectomy. We will hold off on NGT placement for now as he has had no vomitting in several hours. I have consulted the hospitalist service for his HTN. He otherwise appears to be hemodynamically stable. He understands the plan well. His and daughter were involved with the discussion. Quality Stroke Does the patient have a stroke diagnosis?: No VTE Prior VTE?: No VTE Risk Level:: Medical - moderate - high VTE Device Contraindication: N/A - Device Ordered VTE Drug Contraindication: N/A - Med Ordered Procedures Date of Service Date of Service: 04/07/25
--- NOTE | 2025-04-02 20:29 | HO.PM.IMCN ---
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 Patient states his symptoms started last evening. Patient did have breakfast this morning but his symptoms progressed to include left-sided abdominal pain that became diffuse abdominal pain throughout. Patient denied any chest pain or shortness of breath at rest or with exertion during this time. Patient underwent a CT of the abdomen and pelvis in the ED and was found to have a mid to distal small bowel obstruction. No evidence of pneumatosis or pneumoperitoneum present. Patient was admitted to the hospital by Dr. Navas. Hospitalist group was consulted for hypertension. After seeing patient with profuse nausea and vomiting, attributing current hypertensive issues to his symptoms. Nursing is requesting from surgery and NG tube placement which I believe will help relieve patient's current symptoms. After patient's nausea and vomiting resolved was able to meet with patient to review his past medical history and past surgical history. It is accurately stated above and currently patient has no other medical concerns at this time. Patient states he is not a diabetic. Patient denies any burning or pain with urination. Review of Systems Review of Systems: Patient currently denies any chest pain, shortness of breath at rest or with exertion. Patient has been having intermittent nausea and vomiting with sometimes intractable vomiting. Patient has reporting his abdomen is grossly distended but his last bowel movement was earlier today and it was consistent of diarrhea. [facility] Medical History (Updated 04/02/25 @ 21:57 by GABY Nam-EFRAIN) Partial small bowel obstruction BPH (benign prostatic hyperplasia) Hypertension Upper GI bleed SCHULTZ (nonalcoholic steatohepatitis) Erectile dysfunction Chronic hepatitis C virus genotype 1a infection Cognitive capacity: Alert and orientated x3 Surgical History History of esophagogastroduodenoscopy (EGD) History of pancreatectomy Hx of splenectomy Social History Household Members: Unknown / Unable to assess Housing: Unknown / Unable to assess Are you a primary health care legal assistant to a significant other at home: No Comment: bilateral wrist restraints for airway safety Patient Tobacco Use Status: Never used Tobacco Smoked in Last 30 Days: No Use of substances other than those prescribed or required for medical reasons: No Advance Directives: No Advance Directives Information Provided: No service: Yes Meds Allergies Allergy/AdvReac Type Severity Reaction Status Date / Time No Known Allergies Allergy Verified 04/02/25 15:44 Active Medications: Current Medications Acetaminophen (Acetaminophen 325 Mg Tablet) 650 mg PO Q6H PRN PRN Reason: Pain, Mild 1-3,fever,headache Heparin Sodium (Porcine) (Heparin Sodium,Porcine 5,000 Unit/Ml Vial) 5,000 unit SUBCUT Q12H [facility] Lactated Ringer's (Lr) 1,000 mls @ 100 mls/hr IVCONT .Q10H [facility] Lisinopril (Lisinopril 20 Mg Tablet) 20 mg PO DAILY [facility]; Protocol Melatonin (Melatonin 3 Mg Tablet) 6 mg PO BEDTIME PRN PRN Reason: Insomnia Metoprolol Succinate (Metoprolol Succinate Er 50 Mg Tab.Er.24h) 50 mg PO DAILY [facility]; Protocol Morphine Sulfate (Morphine Sulfate 4 Mg/Ml Cartridge) 2 mg IVPUSH Q4H PRN; Protocol PRN Reason: Pain, Severe (Pain Scale 7-10) Omeprazole (Omeprazole 40 Mg Capsule.Dr) 40 mg PO DAILY [facility] Ondansetron HCl (Ondansetron Hcl 4 Mg/2 Ml Vial) 4 mg IVPUSH Q8H PRN PRN Reason: Nausea and Vomiting Sodium Chloride (0.9 % Sodium Chloride Flush 3 Ml Syringe) 3 ml IVFLUSH QSHIFT [facility] Home Medications ?Medication ?Instructions ?Recorded ?Confirmed ?Last Taken ?Type brinzolamide 1 %-brimonidine 0.2 % 1 drp ophthalmic (eye) BID 01/07/25 04/02/25 04/02/25 History eye drops,suspension (Simbrinza) hydroxyzine HCl 25 mg tablet 25 mg PO BEDTIME PRN Insomnia 01/07/25 04/02/25 Unknown History tadalafil 20 mg tablet 5 mg PO DAILY 01/07/25 04/02/25 04/02/25 History omeprazole 40 mg capsule,delayed 40 mg PO DAILY@0630 04/02/25 04/02/25 04/02/25 History release Physical Exam Vital Signs and Narrative: Vital Signs: Last Vital Signs Temp 97.5 F 04/02/25 15:42 Pulse 63 04/02/25 18:24 Resp 14 04/02/25 18:24 BP 181/74 H 04/02/25 18:24 Pulse Ox 95 04/02/25 18:24 O2 Del Method Room Air 04/02/25 18:24 BMI result Body Mass Index 34.2 Alert and orientated X3, able to give good history. Neuro: CN II-X11 intact, no deficits, visual acuity intact EYES: PERRLA, EOM intact. Sclerae nonicteric ENT: hearing intact, no issues with swallowing, uvula midline, lips moist, nares patent no epistaxis Cardiac: S1 S2 RRR, no murmur, no JVD, no edema in Lower ext Pulmonary: lungs clear to auscultation B Abdominal: BS , hypoactive abdomen grossly distended, tender to palpation MSK: strength 5/5 upper and lower extremities : no CVA tenderness no bladder distension Extremities: no edema in lower extremities, PT and DP pulses palpable +2 Psych: mood stable, judgement and insight good Results Labs 04/02/25 17:21 04/02/25 17:21 Labs: Laboratory Results - last 24 hr 04/02/25 17:21 MCV 86.1 MCH 28.5 MCHC 33.1 RDW 15.1 Plt Count 264 D MPV 8.6 L Immature Gran % (Auto) 0.4 Neut % (Auto) 77.9 H Lymph % (Auto) 13.2 L [place] % (Auto) 7.4 Eos % (Auto) 0.7 Baso % (Auto) 0.4 Lymph # (Auto) 1.5 [place] # (Auto) 0.8 Eos # (Auto) 0.1 Baso # (Auto) 0.0 Abs Immat Gran (auto) 0.04 H Absolute Neuts (auto) 8.7 H Absolute Nucleated RBC 0.000 Nucleated RBC % (auto) 0.0 PT 11.6 INR 1.0 Anion Gap 12 Estim Creat Clear Calc 96.8 Estimated GFR > 60 Random Glucose 117 H Calcium 8.9 Magnesium 2.3 Total Bilirubin 0.3 AST 49 H ALT 18 Alkaline Phosphatase 87 Total Protein 7.6 Albumin 4.2 Influenza Type A (PCR) NEGATIVE Influenza Type B (PCR) NEGATIVE RSV RNA Qual (PCR) NEGATIVE SARS-CoV-2 RNA (RT-PCR) NEGATIVE ECG Attestation: I personally reviewed and interpreted this ECG as follows: (Sinus Mick with normal CT interval) Prior ECG tracings: available for review Imaging Radiologist's Impressions: CT ABD PELVIS IMPRESSION: 1. Findings suspicious for mid to distal small bowel obstruction. No pneumatosis or pneumoperitoneum. 2. Minimal free fluid anterior to the liver. 3. Additional findings as described. 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 Hospitalist group consulted per Dr. Navas for management of hypertension. Currently it is felt that hypertension is related to patient's symptoms of persistent nausea with vomiting. Nursing is following through on plan to place NG tube to help relieve patient's symptoms. HTN Patient currently asymptomatic with small bowel obstruction to include nausea and vomiting which could be contributing to hypertension Hydralazine 10 mg IV q.6 PRN ordered Recommend resuming patient's p.o. meds when able to tolerate oral intake per general surgery Avoid hypotension IV fluids ordered per surgery Small-bowel obstruction Management per General surgery NG tube placement is planned to help relieve patient's symptoms BPH Patient currently asymptomatic Continue tamsulosin and finasteride once able to tolerate oral medications GERD Protonix IV ordered Iron deficiency anemia H&H stable Continue iron supplementation once able to tolerate p.o. intake Hospitalist group will sign off at this time. We appreciate this consultation. Please reach out with any questions or concerns.
[2025-04-02 20:33] VITALS: RESP 18
[2025-04-02] MEDS: Lactated Ringers 1,000 ML 100 ML IVCONT (20:33)
[2025-04-02 20:35] VITALS: BP 160/90; PULSE 74; RESP 18
--- NOTE | 2025-04-02 21:27 | PHA.MEDREC ---
Addendum entered by Carolina Bear RPh 04/02/25 21:34: reviewed Original Note: Pharmacy Consult ? Medication Reconciliation Pharmacy has completed the medication reconciliation. Patient was able to confirm all his medications. Patient had all his morning medications today.
[2025-04-02] MEDS: diazePAM 10 MG/2 ML CARTRIDGE IVPUSH (22:35)
[2025-04-03] VITALS (17 sets, daily range): BP systolic 146–192; BP diastolic 72–90; PULSE 76–105; RESP 13–20; TEMP 36–37.2; O2SAT 93–98; BMI 34.8
--- NOTE | 2025-04-03 00:22 | PC.NURSE ---
NGT advanced exactly 10 cm per radiology recomendation and MD Hughes verbal order. repeat XR ordered.
[2025-04-03] MEDS: diazePAM 10 MG/2 ML CARTRIDGE 5 MG IVPUSH (01:13)
--- NOTE | 2025-04-03 04:04 | PC.NURSE ---
intermittant suciton approx 100 mL yellow/brown output
[2025-04-03] MEDS: Metoprolol Succinate ER 50 MG TAB.ER.24H PO (05:33)
[2025-04-03] MEDS: Lactated Ringers 1,000 ML 100 ML IVCONT ×3 (06:04→21:44)
[2025-04-03 08:17] LABS: MANUAL DIFF FLAG NO
[2025-04-03 08:23] LABS: Hematocrit 41.2 % (42.0-52.0); Hemoglobin 13.4 g/dl (14.0-18.0); Imm Gran Abs Auto 0.02 X10*3/uL (0.00-0.03); Imm Gran Pct Auto 0.2 % (0.0-0.4); Lymphocytes Absolute Auto 1.5 X10*3/uL (1.2-4.9); Mean Corpuscular HGB Conc 32.5 g/dl (31.0-36.0); Mean Corpuscular Hemoglobin 28.5 pg (27.0-33.0); Mean Corpuscular Volume 87.5 fL (80.0-98.0); NRBC Abs Auto 0.000 X10*3/uL (0.0-0.012); NRBC Pct Auto 0.0 /100WBC (0.0-0.2); Platelet Count 287 X10*3/uL (160-400); Red Blood Count 4.71 X10*6/uL (4.60-5.80); White Blood Count 10.7 X10*3/uL (4.8-10.8)
[2025-04-03 09:15] LABS: Anion Gap 14 (12-20); Blood Urea Nitrogen 20 mg/dL (9-16); Calcium 9.1 mg/dL (8.4-10.2); Carbon Dioxide 25 mmol/L (22-29); Chloride 107 mmol/L (96-108); Creatinine Clr Calc Pharmacy 102.0; Estimated Glomerular Filt Rate > 60; Potassium 4.2 mmol/L (3.3-5.1); Sodium 142 mmol/L (135-145)
--- NOTE | 2025-04-03 10:11 | PM.PNGS ---
Subjective Subjective Date of Service: 04/03/25 Interval history: He vomited last night so NG-tube was placed He has abdominal pain is better Complains of pain in the throat and nose from the NG tube Denies recalling flatus Physical Exam Vital Signs: Vital Signs: Last Vital Signs Temp 98.9 F 04/03/25 07:36 Pulse 86 04/03/25 07:36 Resp 14 04/03/25 09:52 BP 185/86 H 04/03/25 07:36 Pulse Ox 98 04/03/25 07:36 O2 Del Method Room Air 04/03/25 07:36 BMI result Body Mass Index 34.8 Const: General: comfortable and no acute distress Resp: Effort & Inspection: normal respiratory effort Cardio: Rate: regular rate GI: Other: Mild tenderness diffusely Palpation (GI): Soft to palpation, not firm and no guarding Objective Data Active Medications Acetaminophen (Acetaminophen 325 Mg Tablet) 650 mg PO Q6H PRN PRN Reason: Pain, Mild 1-3,fever,headache Heparin Sodium (Porcine) (Heparin Sodium,Porcine 5,000 Unit/Ml Vial) 5,000 unit SUBCUT Q12H [facility] Last Admin: 04/03/25 09:53 Dose: 5,000 unit Documented By: BURSadi Hydralazine HCl (Hydralazine Hcl 20 Mg/Ml Vial) 10 mg IVPUSH Q6H PRN; Protocol PRN Reason: SBP > 160 Last Admin: 04/03/25 03:04 Dose: 10 mg Documented By: MARIE Lactated Ringer's (Lr) 1,000 mls @ 100 mls/hr IVCONT .Q10H [facility] Last Admin: 04/03/25 06:04 Dose: 100 mls/hr Documented By: CAM Lisinopril (Lisinopril 20 Mg Tablet) 20 mg PO DAILY [facility]; Protocol Last Admin: 04/03/25 05:34 Dose: 20 mg Documented By: CAM Melatonin (Melatonin 3 Mg Tablet) 6 mg PO BEDTIME PRN PRN Reason: Insomnia Metoprolol Succinate (Metoprolol Succinate Er 50 Mg Tab.Er.24h) 50 mg PO DAILY [facility]; Protocol Last Admin: 04/03/25 05:33 Dose: 50 mg Documented By: CAM Morphine Sulfate (Morphine Sulfate 4 Mg/Ml Cartridge) 2 mg IVPUSH Q4H PRN; Protocol PRN Reason: Pain, Severe (Pain Scale 7-10) Last Admin: 04/03/25 09:52 Dose: 2 mg Documented By: DENIA Omeprazole (Omeprazole 40 Mg Capsule.Dr) 40 mg PO DAILY@0630 [facility] Last Admin: 04/03/25 05:34 Dose: 40 mg Documented By: CAM Ondansetron HCl (Ondansetron Hcl 4 Mg/2 Ml Vial) 4 mg IVPUSH Q8H PRN PRN Reason: Nausea and Vomiting Sodium Chloride (0.9 % Sodium Chloride Flush 3 Ml Syringe) 3 ml IVFLUSH QSHIFT [facility] Last Admin: 04/03/25 08:53 Dose: Not Given Documented By: DENIA Non-Admin Reason: IV Running Labs 04/03/25 07:22 04/03/25 07:22 Labs: Laboratory Results - last 24 hr 04/02/25 04/03/25 17:21 07:22 MCV 86.1 87.5 MCH 28.5 28.5 MCHC 33.1 32.5 RDW 15.1 15.3 Plt Count 264 D 287 MPV 8.6 L 9.4 Immature Gran % (Auto) 0.4 0.2 Neut % (Auto) 77.9 H 78.4 H Lymph % (Auto) 13.2 L 14.1 L [place] % (Auto) 7.4 6.8 Eos % (Auto) 0.7 0.2 Baso % (Auto) 0.4 0.3 Lymph # (Auto) 1.5 1.5 [place] # (Auto) 0.8 0.7 Eos # (Auto) 0.1 0.0 Baso # (Auto) 0.0 0.0 Abs Immat Gran (auto) 0.04 H 0.02 Absolute Neuts (auto) 8.7 H 8.4 H Absolute Nucleated RBC 0.000 0.000 Nucleated RBC % (auto) 0.0 0.0 PT 11.6 INR 1.0 Anion Gap 12 14 Estim Creat Clear Calc 96.8 102.0 Estimated GFR > 60 > 60 Random Glucose 117 H 112 Calcium 8.9 9.1 Magnesium 2.3 Total Bilirubin 0.3 AST 49 H ALT 18 Alkaline Phosphatase 87 Total Protein 7.6 Albumin 4.2 Influenza Type A (PCR) NEGATIVE Influenza Type B (PCR) NEGATIVE RSV RNA Qual (PCR) NEGATIVE SARS-CoV-2 RNA (RT-PCR) NEGATIVE Procedures Date of Service Date of Service: 04/03/25 Progress Note: A&P Assessment and plan (1) Partial small bowel obstruction: Status: Acute Assessment and Plan: NG tube in place Output not a lot Abdominal exam otherwise benign Flatus yet Encouraged ambulation Keep NG tube in place IV fluids We will follow closely Time Spent With Patient Time: Total time managing care of this patient today ____ minutes. Quality Stroke Does the patient have a stroke diagnosis?: No VTE Prior VTE?: No VTE Risk Level:: Medical - moderate - high VTE Device Contraindication: N/A - Device Ordered VTE Drug Contraindication: N/A - Med Ordered
--- NOTE | 2025-04-03 10:25 | MHC.CM.PN ---
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
--- NOTE | 2025-04-03 14:20 | PM.EVENT ---
Event Note Date of Service: 04/03/25 Event Note: Seen on afternoon rounds Abdominal pain better However, he says that the NG tube bothers him a lot with pain in the throat and the nose Cervical ordered Abdomen remained soft and benign NG-tube in place, functioning well Continue current care for now Hospitalist following the patient for hypertension Time Spent With Patient Time: Total time managing care of this patient today ____ minutes.
[2025-04-03] MEDS: Throat Lozenge, Medicated LOZENGE 1 LOZENGE MUCOUS MEM ×2 (14:25→21:44)
--- NOTE | 2025-04-03 14:48 | PC.NURSE ---
Patient having increased discomfort and elevated BP, paged MD Cabrera via [email or web address], provider came to bedside to evaluate patient. verbalized he would place an order for pain medications and to reassess BP after pain medications are administered before giving PRN Hydralazine.
[2025-04-03 14:58] LABS: Appearance Urine Clear; Glucose Urine UA Negative (Negative); PH 5.5 (5.0-9.0); Specific Gravity - Urine >= 1.030 (1.005-1.025)
--- NOTE | 2025-04-03 15:29 | HO.PM.IMPN ---
Subjective Subjective Date of Service: 04/03/25 Interval History: Pressure is elevated this afternoon. States NG-tube very uncomfortable. Morphine ineffective occurring dose Review of Systems Denies chest pain Denies shortness of breath Denies nausea vomiting diarrhea Denies fever chills Admits pain and hoarseness from NG-tube Physical Exam Vital Signs: Vital Signs: Last Vital Signs Temp 98.3 F 04/03/25 15:05 Pulse 93 04/03/25 15:05 Resp 17 04/03/25 15:05 BP 178/80 H 04/03/25 15:05 Pulse Ox 95 04/03/25 15:05 O2 Del Method Room Air 04/03/25 15:05 BMI result Body Mass Index 34.8 Const: Other: Awake alert no acute distress Resp: Other: Clear to auscultation bilaterally no rales rhonchi or wheezes Cardio: Other: No S4; positive S1-S2; no S3 murmurs rubs or gallops GI: Other: Soft, quiet bowel sounds Extrem: Other: No edema bilaterally Objective Data Active Medications Acetaminophen (Acetaminophen 325 Mg Tablet) 650 mg PO Q6H PRN PRN Reason: Pain, Mild 1-3,fever,headache Benzocaine (Throat Lozenge, Medicated Lozenge) 1 lozenge MUCOUS MEM Q2H PRN PRN Reason: Sore Throat Last Admin: 04/03/25 14:25 Dose: 1 lozenge Documented By: DENIA Heparin Sodium (Porcine) (Heparin Sodium,Porcine 5,000 Unit/Ml Vial) 5,000 unit SUBCUT Q12H [facility] Last Admin: 04/03/25 09:53 Dose: 5,000 unit Documented By: DENIA Hydralazine HCl (Hydralazine Hcl 20 Mg/Ml Vial) 10 mg IVPUSH Q6H PRN; Protocol PRN Reason: SBP > 160 Last Admin: 04/03/25 03:04 Dose: 10 mg Documented By: MARIE Lactated Ringer's (Lr) 1,000 mls @ 100 mls/hr IVCONT .Q10H [facility] Last Admin: 04/03/25 11:56 Dose: 100 mls/hr Documented By: DENIA Lisinopril (Lisinopril 20 Mg Tablet) 20 mg PO DAILY [facility]; Protocol Last Admin: 04/03/25 05:34 Dose: 20 mg Documented By: CAM Melatonin (Melatonin 3 Mg Tablet) 6 mg PO BEDTIME PRN PRN Reason: Insomnia Metoprolol Succinate (Metoprolol Succinate Er 50 Mg Tab.Er.24h) 50 mg PO DAILY [facility]; Protocol Last Admin: 04/03/25 05:33 Dose: 50 mg Documented By: CAM Morphine Sulfate (Morphine Sulfate 4 Mg/Ml Cartridge) 4 mg IVPUSH Q4H PRN; Protocol PRN Reason: Pain, Severe (Pain Scale 7-10) Last Admin: 04/03/25 14:54 Dose: 4 mg Documented By: ARABELLA Omeprazole (Omeprazole 40 Mg Capsule.Dr) 40 mg PO DAILY@0630 [facility] Last Admin: 04/03/25 05:34 Dose: 40 mg Documented By: CAM Ondansetron HCl (Ondansetron Hcl 4 Mg/2 Ml Vial) 4 mg IVPUSH Q8H PRN PRN Reason: Nausea and Vomiting Sodium Chloride (0.9 % Sodium Chloride Flush 3 Ml Syringe) 3 ml IVFLUSH QSHIFT [facility] Last Admin: 04/03/25 08:53 Dose: Not Given Documented By: DENIA Non-Admin Reason: IV Running Labs 04/03/25 07:22 04/03/25 07:22 Labs: Laboratory Results - last 24 hr 04/02/25 04/03/25 04/03/25 17:21 07:22 14:50 MCV 86.1 87.5 MCH 28.5 28.5 MCHC 33.1 32.5 RDW 15.1 15.3 Plt Count 264 D 287 MPV 8.6 L 9.4 Immature Gran % (Auto) 0.4 0.2 Neut % (Auto) 77.9 H 78.4 H Lymph % (Auto) 13.2 L 14.1 L [place] % (Auto) 7.4 6.8 Eos % (Auto) 0.7 0.2 Baso % (Auto) 0.4 0.3 Lymph # (Auto) 1.5 1.5 [place] # (Auto) 0.8 0.7 Eos # (Auto) 0.1 0.0 Baso # (Auto) 0.0 0.0 Abs Immat Gran (auto) 0.04 H 0.02 Absolute Neuts (auto) 8.7 H 8.4 H Absolute Nucleated RBC 0.000 0.000 Nucleated RBC % (auto) 0.0 0.0 PT 11.6 INR 1.0 Anion Gap 12 14 Estim Creat Clear Calc 96.8 102.0 Estimated GFR > 60 > 60 Random Glucose 117 H 112 Calcium 8.9 9.1 Magnesium 2.3 Total Bilirubin 0.3 AST 49 H ALT 18 Alkaline Phosphatase 87 Total Protein 7.6 Albumin 4.2 Urine Color Yellow Urine Appearance Clear Urine pH 5.5 Ur Specific [place] >= 1.030 H Urine Protein Trace Urine Glucose (UA) Negative Urine Ketones Negative Urine Blood Negative Urine Nitrite Negative Ur Leukocyte Esterase Negative Influenza Type A (PCR) NEGATIVE Influenza Type B (PCR) NEGATIVE RSV RNA Qual (PCR) NEGATIVE SARS-CoV-2 RNA (RT-PCR) NEGATIVE Assessment and Plan (1) Small bowel obstruction: Status: Acute (2) Hypertension: Status: Acute Plan Patient is a 69-year-old male with past medical history COVID-19, BPH, 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 Hospitalist group consulted per Dr. Navas for management of hypertension. Currently it is felt that hypertension is related to patient's symptoms of persistent nausea with vomiting. Nursing is following through on plan to place NG tube to help relieve patient's symptoms. 1. Hypertension -likely related to NG-tube discomfort and overall pain -we will increase morphine dose to 4 mg IV q.4 hours while NG-tube in -continue hydralazine as ordered 2. Small-bowel obstruction -Management per General surgery 3.GERD -Protonix IV -switch to oral when appropriate We will follow Quality Stroke Does the patient have a stroke diagnosis?: No VTE Prior VTE?: No VTE Risk Level:: Medical - moderate - high VTE Device Contraindication: N/A - Device Ordered VTE Drug Contraindication: N/A - Med Ordered
[2025-04-03] MEDS: 0.9 % Sodium Chloride Flush 3 ML SYRINGE IVFLUSH (19:34)
--- NOTE | 2025-04-03 19:45 | PC.NURSE ---
Shortly after shift change pt had manual BP of 184/90, HR 105. Pt reporting extreme discomfort from NGT. Per day shift, pt's BPs have been high even after hydralazine and morphine. Discussed options of removal and need of reinsertion if N/V return, and pt is willing to take a chance. MD Navas notified via [place] [employer]. Per Yosef, okay to remove NGT and keep pt NPO. NGT removed, pt reported relief and said he passed gas at the same time NGT was removed. Pt appears more comfortable and content, smiling and talking on the phone with family. Will continue to monitor.
[2025-04-03] MEDS: Brimonidine Tartrate 0.2% Oph 5 ML BOTTLE 1 DROP EYE-BOTH (21:45)
[2025-04-03] MEDS: Dorzolamide HCl 2 % Ophth Sol 10 ML DRPBTL 1 DROP EYE-BOTH (21:45)
--- NOTE | 2025-04-03 23:34 | PC.NURSE ---
Pt reports no pain, resting comfortably, but BPs continue to be elevated. BP 192/88, 10 mg hydralazine administered per prn order. Recheck BP was 187/79, and HR was 97. MD Hughes notified, ordered 20 mg IV Labetalol & initiated tele monitoring. Last BP was 154/76, HR 87. MD Hughes updated. No new orders. Pt reports no pain, no N/V, resting comfortably.
[2025-04-04] VITALS (19 sets, daily range): BP systolic 139–208; BP diastolic 77–106; PULSE 69–125; RESP 14–20; TEMP 36.2–37.7; O2SAT 92–97
[2025-04-04 05:57] LABS: MANUAL DIFF FLAG NO
[2025-04-04 06:05] LABS: Hematocrit 36.7 % (42.0-52.0); Hemoglobin 12.3 g/dl (14.0-18.0); Imm Gran Abs Auto 0.02 X10*3/uL (0.00-0.03); Imm Gran Pct Auto 0.2 % (0.0-0.4); Lymphocytes Absolute Auto 1.9 X10*3/uL (1.2-4.9); Mean Corpuscular HGB Conc 33.5 g/dl (31.0-36.0); Mean Corpuscular Hemoglobin 28.5 pg (27.0-33.0); Mean Corpuscular Volume 85.2 fL (80.0-98.0); NRBC Abs Auto 0.000 X10*3/uL (0.0-0.012); NRBC Pct Auto 0.0 /100WBC (0.0-0.2); Platelet Count 257 X10*3/uL (160-400); Red Blood Count 4.31 X10*6/uL (4.60-5.80); White Blood Count 8.7 X10*3/uL (4.8-10.8)
[2025-04-04 06:22] LABS: Alanine Aminotransferase 14 U/L (0-40); Albumin Level 3.9 g/dL (3.5-5.0); Alkaline Phosphatase 78 U/L (39-117); Anion Gap 16 (12-20); Aspartate Amino Transferase 44 U/L (5-37); Blood Urea Nitrogen 17 mg/dL (9-16); Calcium 8.9 mg/dL (8.4-10.2); Carbon Dioxide 24 mmol/L (22-29); Chloride 105 mmol/L (96-108); Creatinine Clr Calc Pharmacy 137.0; Estimated Glomerular Filt Rate > 60; Potassium 3.7 mmol/L (3.3-5.1); Sodium 141 mmol/L (135-145); Total Protein 7.2 g/dL (6.5-8.0)
[2025-04-04] MEDS: Lactated Ringers 1,000 ML 100 ML IVCONT (07:16)
[2025-04-04] MEDS: Ferrous Sulfate 324 MG TABLET.DR PO (09:06)
[2025-04-04] MEDS: Metoprolol Succinate ER 50 MG TAB.ER.24H PO (09:06)
[2025-04-04] MEDS: Brimonidine Tartrate 0.2% Oph 5 ML BOTTLE 1 DROP EYE-BOTH ×2 (09:07→20:32)
[2025-04-04] MEDS: Dorzolamide HCl 2 % Ophth Sol 10 ML DRPBTL 1 DROP EYE-BOTH ×2 (09:07→20:32)
--- NOTE | 2025-04-04 09:46 | P.PNGS_ITS ---
Subjective Subjective Date of Service: 04/04/25 Interval history: He was extremely anxious uncomfortable with the NG tube last night and insisted on having this pulled out He has been doing well since then Passing flatus Feels much better now and denies abdominal pain Physical Exam 2 Vital Signs: Vital Signs: Last Vital Signs Temp 97.7 F 04/04/25 07:47 Pulse 80 04/04/25 09:05 Resp 16 04/04/25 07:47 BP 164/77 H 04/04/25 09:05 Pulse Ox 97 04/04/25 09:05 O2 Del Method Room Air 04/04/25 09:05 BMI result Body Mass Index 34.8 Const: Other: Sitting on recliner General: comfortable and no acute distress Resp: Effort & Inspection: normal respiratory effort Cardio: Rate: regular rate GI: Palpation (GI): Soft to palpation, not firm, nontender and no guarding Objective Data Active Medications Acetaminophen (Acetaminophen 325 Mg Tablet) 650 mg PO Q6H PRN PRN Reason: Pain, Mild 1-3,fever,headache Last Admin: 04/04/25 05:44 Dose: 650 mg Documented By: CAM Benzocaine (Throat Lozenge, Medicated Lozenge) 1 lozenge MUCOUS MEM Q2H PRN PRN Reason: Sore Throat Last Admin: 04/03/25 21:44 Dose: 1 lozenge Documented By: CAM Brimonidine Tartrate (Brimonidine Tartrate 0.2% Oph 5 Ml Bottle) 1 drop EYE- BOTH BID [facility] Last Admin: 04/04/25 09:07 Dose: 1 drop Documented By: DENIA Dorzolamide HCl (Dorzolamide Hcl 2 % Ophth Aminah 10 Ml Drpbtl) 1 drop EYE-BOTH BID [facility] Last Admin: 04/04/25 09:07 Dose: 1 drop Documented By: DENIA Ferrous Sulfate (Ferrous Sulfate 324 Mg Tablet.Dr) 324 mg PO DAILY [facility] Last Admin: 04/04/25 09:06 Dose: 324 mg Documented By: DENIA Finasteride (Finasteride 5 Mg Tablet) 5 mg PO DAILY [facility] Last Admin: 04/04/25 09:06 Dose: 5 mg Documented By: DENIA Heparin Sodium (Porcine) (Heparin Sodium,Porcine 5,000 Unit/Ml Vial) 5,000 unit SUBCUT Q12H [facility] Last Admin: 04/04/25 09:07 Dose: 5,000 unit Documented By: DENIA Hydralazine HCl (Hydralazine Hcl 20 Mg/Ml Vial) 10 mg IVPUSH Q6H PRN; Protocol PRN Reason: SBP > 160 Last Admin: 04/03/25 21:53 Dose: 10 mg Documented By: CAM Hydroxyzine HCl (Hydroxyzine Hcl 25 Mg Tablet) 25 mg PO BEDTIME PRN PRN Reason: Insomnia Lactated Ringer's (Lr) 1,000 mls @ 100 mls/hr IVCONT .Q10H [facility] Last Admin: 04/04/25 07:16 Dose: 100 mls/hr Documented By: DENIA Lisinopril (Lisinopril 20 Mg Tablet) 20 mg PO DAILY [facility]; Protocol Last Admin: 04/04/25 09:06 Dose: 20 mg Documented By: DENIA Melatonin (Melatonin 3 Mg Tablet) 6 mg PO BEDTIME PRN PRN Reason: Insomnia Metoprolol Succinate (Metoprolol Succinate Er 50 Mg Tab.Er.24h) 50 mg PO DAILY [facility]; Protocol Last Admin: 04/04/25 09:06 Dose: 50 mg Documented By: DENIA Morphine Sulfate (Morphine Sulfate 4 Mg/Ml Cartridge) 4 mg IVPUSH Q4H PRN; Protocol PRN Reason: Pain, Severe (Pain Scale 7-10) Last Admin: 04/03/25 19:33 Dose: 4 mg Documented By: CAM Non-Formulary Medication (Tadalafil) 5 mg PO DAILY [facility] Omeprazole (Omeprazole 40 Mg Capsule.Dr) 40 mg PO DAILY@0630 [facility] Last Admin: 04/04/25 05:43 Dose: 40 mg Documented By: CAM Ondansetron HCl (Ondansetron Hcl 4 Mg/2 Ml Vial) 4 mg IVPUSH Q8H PRN PRN Reason: Nausea and Vomiting Sodium Chloride (0.9 % Sodium Chloride Flush 3 Ml Syringe) 3 ml IVFLUSH QSHIFT [facility] Last Admin: 04/04/25 07:19 Dose: Not Given Documented By: DENIA Non-Admin Reason: IV Running Tamsulosin HCl (Tamsulosin Hcl 0.4 Mg Capsule) 0.4 mg PO BEDTIME [facility] Last Admin: 04/03/25 21:44 Dose: 0.4 mg Documented By: CAM Labs 04/04/25 05:26 04/04/25 05:26 Labs: Laboratory Results - last 24 hr 04/03/25 04/04/25 14:50 05:26 MCV 85.2 MCH 28.5 MCHC 33.5 RDW 15.2 Plt Count 257 MPV 9.2 L Immature Gran % (Auto) 0.2 Neut % (Auto) 64.7 Lymph % (Auto) 21.5 [place] % (Auto) 12.6 H Eos % (Auto) 0.7 Baso % (Auto) 0.3 Lymph # (Auto) 1.9 [place] # (Auto) 1.1 Eos # (Auto) 0.1 Baso # (Auto) 0.0 Abs Immat Gran (auto) 0.02 Absolute Neuts (auto) 5.6 Absolute Nucleated RBC 0.000 Nucleated RBC % (auto) 0.0 Anion Gap 16 Estim Creat Clear Calc 137.0 Estimated GFR > 60 Fasting Glucose 112 H Calcium 8.9 Total Bilirubin 0.9 AST 44 H ALT 14 Alkaline Phosphatase 78 Total Protein 7.2 Albumin 3.9 Urine Color Yellow Urine Appearance Clear Urine pH 5.5 Ur Specific [place] >= 1.030 H Urine Protein Trace Urine Glucose (UA) Negative Urine Ketones Negative Urine Blood Negative Urine Nitrite Negative Ur Leukocyte Esterase Negative Procedures Date of Service Date of Service: 04/04/25 Progress Note: A&P Assessment and plan (1) Partial small bowel obstruction: Status: Acute Assessment and Plan: Symptoms have resolved NG tube removed last night Passing flatus No nausea or vomiting Abdominal exam very benign Okay to start on clear liquids Ambulate Doing well clinically Time Spent With Patient Time: Total time managing care of this patient today ____ minutes. Quality Stroke Does the patient have a stroke diagnosis?: No VTE Prior VTE?: No VTE Risk Level:: Medical - moderate - high VTE Device Contraindication: N/A - Device Ordered VTE Drug Contraindication: N/A - Med Ordered
--- NOTE | 2025-04-04 12:00 | P.PNIM_ITS ---
Subjective Subjective Date of Service: 04/04/25 Interval History: BP still running high. NG-tube out this morning. No acute issues overnight Review of Systems Denies chest pain Denies shortness of breath Denies nausea vomiting diarrhea Denies fever chills Admits pain and hoarseness from NG-tube Physical Exam 2 Vital Signs: Vital Signs: Last Vital Signs Temp 97.7 F 04/04/25 07:47 Pulse 69 04/04/25 10:45 Resp 16 04/04/25 10:52 BP 180/104 H 04/04/25 11:27 Pulse Ox 96 04/04/25 11:27 O2 Del Method Room Air 04/04/25 11:27 BMI result Body Mass Index 34.8 Const: Other: Awake alert no acute distress Resp: Other: Clear to auscultation bilaterally no rales rhonchi or wheezes Cardio: Other: No S4; positive S1-S2; no S3 murmurs rubs or gallops GI: Other: Soft, quiet bowel sounds Extrem: Other: No edema bilaterally Objective Data Active Medications Acetaminophen (Acetaminophen 325 Mg Tablet) 650 mg PO Q6H PRN PRN Reason: Pain, Mild 1-3,fever,headache Last Admin: 04/04/25 05:44 Dose: 650 mg Documented By: CAM Amlodipine Besylate (Amlodipine Besylate 10 Mg Tablet) 10 mg PO DAILY [facility]; Protocol Last Admin: 04/04/25 11:52 Dose: 10 mg Documented By: DENIA Benzocaine (Throat Lozenge, Medicated Lozenge) 1 lozenge MUCOUS MEM Q2H PRN PRN Reason: Sore Throat Last Admin: 04/03/25 21:44 Dose: 1 lozenge Documented By: CAM Brimonidine Tartrate (Brimonidine Tartrate 0.2% Oph 5 Ml Bottle) 1 drop EYE- BOTH BID [facility] Last Admin: 04/04/25 09:07 Dose: 1 drop Documented By: DENIA Dorzolamide HCl (Dorzolamide Hcl 2 % Ophth Aminah 10 Ml Drpbtl) 1 drop EYE-BOTH BID [facility] Last Admin: 04/04/25 09:07 Dose: 1 drop Documented By: DENIA Ferrous Sulfate (Ferrous Sulfate 324 Mg Tablet.Dr) 324 mg PO DAILY [facility] Last Admin: 04/04/25 09:06 Dose: 324 mg Documented By: DENIA Finasteride (Finasteride 5 Mg Tablet) 5 mg PO DAILY [facility] Last Admin: 04/04/25 09:06 Dose: 5 mg Documented By: DENIA Heparin Sodium (Porcine) (Heparin Sodium,Porcine 5,000 Unit/Ml Vial) 5,000 unit SUBCUT Q12H [facility] Last Admin: 04/04/25 09:07 Dose: 5,000 unit Documented By: DENIA Hydralazine HCl (Hydralazine Hcl 20 Mg/Ml Vial) 10 mg IVPUSH Q6H PRN; Protocol PRN Reason: SBP > 160 Last Admin: 04/03/25 21:53 Dose: 10 mg Documented By: CAM Hydroxyzine HCl (Hydroxyzine Hcl 25 Mg Tablet) 25 mg PO BEDTIME PRN PRN Reason: Insomnia Lisinopril (Lisinopril 20 Mg Tablet) 20 mg PO DAILY [facility]; Protocol Last Admin: 04/04/25 09:06 Dose: 20 mg Documented By: DENIA Melatonin (Melatonin 3 Mg Tablet) 6 mg PO BEDTIME PRN PRN Reason: Insomnia Metoprolol Succinate (Metoprolol Succinate Er 50 Mg Tab.Er.24h) 50 mg PO DAILY [facility]; Protocol Last Admin: 04/04/25 09:06 Dose: 50 mg Documented By: DENIA Morphine Sulfate (Morphine Sulfate 4 Mg/Ml Cartridge) 4 mg IVPUSH Q4H PRN; Protocol PRN Reason: Pain, Severe (Pain Scale 7-10) Last Admin: 04/04/25 10:52 Dose: 4 mg Documented By: DENIA Non-Formulary Medication (Tadalafil) 5 mg PO DAILY [facility] Omeprazole (Omeprazole 40 Mg Capsule.Dr) 40 mg PO DAILY@0630 [facility] Last Admin: 04/04/25 05:43 Dose: 40 mg Documented By: CAM Ondansetron HCl (Ondansetron Hcl 4 Mg/2 Ml Vial) 4 mg IVPUSH Q8H PRN PRN Reason: Nausea and Vomiting Sodium Chloride (0.9 % Sodium Chloride Flush 3 Ml Syringe) 3 ml IVFLUSH QSHIFT [facility] Last Admin: 04/04/25 07:19 Dose: Not Given Documented By: DENIA Non-Admin Reason: IV Running Tamsulosin HCl (Tamsulosin Hcl 0.4 Mg Capsule) 0.4 mg PO BEDTIME ZHANG Last Admin: 04/03/25 21:44 Dose: 0.4 mg Documented By: CAM Labs 04/04/25 05:26 04/04/25 05:26 Labs: Laboratory Results - last 24 hr 04/03/25 04/04/25 14:50 05:26 MCV 85.2 MCH 28.5 MCHC 33.5 RDW 15.2 Plt Count 257 MPV 9.2 L Immature Gran % (Auto) 0.2 Neut % (Auto) 64.7 Lymph % (Auto) 21.5 [place] % (Auto) 12.6 H Eos % (Auto) 0.7 Baso % (Auto) 0.3 Lymph # (Auto) 1.9 [place] # (Auto) 1.1 Eos # (Auto) 0.1 Baso # (Auto) 0.0 Abs Immat Gran (auto) 0.02 Absolute Neuts (auto) 5.6 Absolute Nucleated RBC 0.000 Nucleated RBC % (auto) 0.0 Anion Gap 16 Estim Creat Clear Calc 137.0 Estimated GFR > 60 Fasting Glucose 112 H Calcium 8.9 Total Bilirubin 0.9 AST 44 H ALT 14 Alkaline Phosphatase 78 Total Protein 7.2 Albumin 3.9 Urine Color Yellow Urine Appearance Clear Urine pH 5.5 Ur Specific [place] >= 1.030 H Urine Protein Trace Urine Glucose (UA) Negative Urine Ketones Negative Urine Blood Negative Urine Nitrite Negative Ur Leukocyte Esterase Negative Assessment and Plan (1) Hypertension: Status: Acute (2) Small bowel obstruction: Status: Acute Plan Patient is a 69-year-old male with past medical history COVID-19, BPH, 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 Hospitalist group consulted per Dr. Navas for management of hypertension. Currently it is felt that hypertension is related to patient's symptoms of persistent nausea with vomiting. Nursing is following through on plan to place NG tube to help relieve patient's symptoms. 1. Hypertension -p.o. meds restarted -amlodipine added to regimen -adjust as indicated 2. Small-bowel obstruction -Management per General surgery 3.GERD -omeprazole We will follow Quality Stroke Does the patient have a stroke diagnosis?: No VTE Prior VTE?: No VTE Risk Level:: Medical - moderate - high VTE Device Contraindication: N/A - Device Ordered VTE Drug Contraindication: N/A - Med Ordered
--- NOTE | 2025-04-04 13:21 | PC.NURSE ---
Patient c/o 15/10 RUQ pain and is reporting it is feeling worse. BP rechecked after medications, BP remains elevated, MD Cabrera notified via [employer]. MD Navas notified of abdominal pain and came to bedside to assess patient.
--- NOTE | 2025-04-04 13:31 | PM.EVENT ---
Event Note Date of Service: 04/04/25 Event Note: Seen on afternoon rounds Says he has right-sided abdominal pain Had been taking clear liquids Abdomen remained soft and benign Blood pressure elevated likely in view of his pain We will keep NPO again but okay to have feels, ice chips We will re-evaluate in the morning Hopefully we can advance restart his clear liquids again tomorrow Time Spent With Patient Time: Total time managing care of this patient today ____ minutes.
--- NOTE | 2025-04-04 13:49 | PC.NURSE ---
Spoke to MD Cabrera in person regarding BP, patient denies headahce, plan to give PRN medications for BP refer to MAR. Patient has increased right upper quadrant pain - pain medications changed per Yosef, refer to MAR. Abdomen soft, tender RUQ, hypoactive bowel sounds, patient denies nausea.
--- NOTE | 2025-04-04 15:04 | P.EN_ITS ---
Event Note Date of Service: 04/04/25 Event Note: He says that he was told he had ?sludge? 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 He said that he was told that he may benefit from a cholecystostomy tube He has surgeons in [facility] told him that they were trying to avoid another surgery for him in view of his complicated pancreatectomy I will therefore check his ultrasound I will follow his LFTs tomorrow morning Pain management for now Abdomen remained soft His was at bedside Time Spent With Patient Time: Total time managing care of this patient today ____ minutes.
[2025-04-04] MEDS: oxyCODONE HCl Immed Release 5 MG TABLET 10 MG PO (15:15)
--- NOTE | 2025-04-04 16:33 | PC.NURSE ---
Patient reporting 10/10 pain in right side of abdomen, pt reports no relief from IV Morphine or Oxycodone. Patient moaning and requiring assistance to sit up due to pain. Spoke to MD Navas and informed him of increased pain and minimal to no relief from PRN medications. No new orders for repeat imagining at this time per MD Navas. MD Navas ordered Dilaudid through telephone order and written in [employer] as well as LR at 80 mL/hr via telephone order, order placed.
[2025-04-04] MEDS: 0.9 % Sodium Chloride Flush 3 ML SYRINGE IVFLUSH (16:37)
[2025-04-04] MEDS: Lactated Ringers 1,000 ML 80 ML IVCONT ×2 (16:38→23:02)
--- NOTE | 2025-04-04 17:16 | PC.NURSE ---
Patient encouraged to ambulate, patient sat on edge of bed, patient then had increased pain on right side of abdomen, describing it as stabbing pain and began feeling cold and shivering, temperature assessed. Patient in too much discomfort to ambulate at this time.
--- NOTE | 2025-04-04 18:31 | PC.NURSE ---
Patient's cardiac monitoring reaching HR 120-130, sustaining. Vital signs assessed. Patient reports feeling worse than admission, with increased abdominal pain on right side, reporting as stabbing pain. No complaints of nausea. Reached out to MD Navas via [email or web address] and informed provider of pain and vital signs. Telephone order from provider via [email or web address] to place stat CT abdomin/pelvis, order placed.
[2025-04-04] MEDS: iohexoL 350 MG/ML 100 ML INFUS..BTL IV (19:22)
--- NOTE | 2025-04-04 19:50 | PM.EVENT ---
Event Note Date of Service: 04/05/25 Event Note: Stated that his pain seemed to have worsened late this afternoon on the right upper quadrant and his blood pressure was elevated because of this I therefore sent him for a CAT scan I have reviewed his CAT scan images - there is no obstruction, there is no obvious acute inflammatory process Question of some thickening of the gallbladder wall but this does not appear to be markedly distended I will start him on IV Zosyn He says that his right upper quadrant pain has subsided quickly tonight and he is much more comfortable now He is on IV Dilaudid Labs ordered for tomorrow morning He now looks well overall Abdominal exam soft and very benign, mild tenderness on right side He also says he has had kidney stones in the past - UA ordered Discussed with daughter Time Spent With Patient Time: Total time managing care of this patient today ____ minutes.
[2025-04-04 20:41] LABS: Appearance Urine Clear; Glucose Urine UA Negative (Negative); PH 7.5 (5.0-9.0); Specific Gravity - Urine >= 1.030 (1.005-1.025)
[2025-04-05] VITALS (9 sets, daily range): BP systolic 121–170; BP diastolic 66–90; PULSE 98–120; RESP 16–22; TEMP 36.1–38.5; O2SAT 92–95
--- NOTE | 2025-04-05 07:40 | P.PNGS_ITS ---
Subjective Subjective Date of Service: 04/05/25 <Xochitl Hernandez PA-C - Last Filed: 04/05/25 07:43> 04/05/25 <Carlos Navas MD - Last Filed: 04/05/25 15:34> Interval history: Continues to complain of right upper/side discomfort. Does not think it has significantly improved since starting IV zosyn yesterday. Passing flatus, no BM yet. Denies nausea. <Xochitl Hernandez PA-C - Last Filed: 04/05/25 07:43> Physical Exam 2 Vital Signs: Vital Signs: Last Vital Signs Temp 98.3 F 04/05/25 07:38 Pulse 104 H 04/05/25 07:38 Resp 16 04/05/25 07:38 BP 170/83 H 04/05/25 07:38 Pulse Ox 95 04/05/25 07:38 O2 Del Method Room Air 04/05/25 07:38 BMI result Body Mass Index 34.8 <Xochitl Hernandez PA-C - Last Filed: 04/05/25 07:43> Const: General: comfortable, no acute distress and alert <Xochitl Hernandez PA-C - Last Filed: 04/05/25 07:43> Orientation/consciousness: patient oriented x3 <DENVER Dwyer Last Filed: 04/05/25 07:43> GI: Other: tender RUQ/into right side <Xochitl Hernandez PA-C - Last Filed: 04/05/25 07:43> Inspection: Yes distended <Xochitl Hernandez PA-C - Last Filed: 04/05/25 07:43> Palpation (GI): Soft to palpation and no guarding <Xochitl Hernandez PA-C - Last Filed: 04/05/25 07:43> Percussion: Yes tympanic to percussion <DENVER Dwyer Last Filed: 04/05/25 07:43> Skin: General skin exam: no rashes or lesions noted and no jaundice < DENVER Dwyer Last Filed: 04/05/25 07:43> Neuro: General: patient oriented x3 and moves all extremities <Xochitl Hernandez PA-C - Last Filed: 04/05/25 07:43> Objective Data Active Medications Acetaminophen (Acetaminophen 325 Mg Tablet) 650 mg PO Q6H PRN PRN Reason: Pain, Mild 1-3,fever,headache Last Admin: 04/04/25 05:44 Dose: 650 mg Documented By: CAM Amlodipine Besylate (Amlodipine Besylate 10 Mg Tablet) 10 mg PO DAILY [facility]; Protocol Last Admin: 04/04/25 11:52 Dose: 10 mg Documented By: DENIA Benzocaine (Throat Lozenge, Medicated Lozenge) 1 lozenge MUCOUS MEM Q2H PRN PRN Reason: Sore Throat Last Admin: 04/03/25 21:44 Dose: 1 lozenge Documented By: CAM Brimonidine Tartrate (Brimonidine Tartrate 0.2% Oph 5 Ml Bottle) 1 drop EYE- BOTH BID [facility] Last Admin: 04/04/25 20:32 Dose: 1 drop Documented By: OLENA Dorzolamide HCl (Dorzolamide Hcl 2 % Ophth Aminah 10 Ml Drpbtl) 1 drop EYE-BOTH BID [facility] Last Admin: 04/04/25 20:32 Dose: 1 drop Documented By: OLENA Ferrous Sulfate (Ferrous Sulfate 324 Mg Tablet.Dr) 324 mg PO DAILY [facility] Last Admin: 04/04/25 09:06 Dose: 324 mg Documented By: DENIA Finasteride (Finasteride 5 Mg Tablet) 5 mg PO DAILY [facility] Last Admin: 04/04/25 09:06 Dose: 5 mg Documented By: DENIA Heparin Sodium (Porcine) (Heparin Sodium,Porcine 5,000 Unit/Ml Vial) 5,000 unit SUBCUT Q12H [facility] Last Admin: 04/04/25 23:02 Dose: 5,000 unit Documented By: OLENA Hydralazine HCl (Hydralazine Hcl 20 Mg/Ml Vial) 10 mg IVPUSH Q6H PRN; Protocol PRN Reason: SBP > 160 Last Admin: 04/04/25 13:46 Dose: 10 mg Documented By: DENIA Hydromorphone HCl (Hydromorphone Hcl 1 Mg/Ml Syringe) 1 mg IVPUSH Q3H PRN; Protocol PRN Reason: Pain, Severe (Pain Scale 7-10) Last Admin: 04/05/25 06:47 Dose: 1 mg Documented By: OLENA Hydroxyzine HCl (Hydroxyzine Hcl 25 Mg Tablet) 25 mg PO BEDTIME PRN PRN Reason: Insomnia Lactated Ringer's (Lr) 1,000 mls @ 80 mls/hr IVCONT .[id number] [facility] Last Admin: 04/04/25 23:02 Dose: 80 mls/hr Documented By: OLENA Piperacillin Sod/Tazobactam (Sod 3.375 gm/ Sodium Chloride) 50 mls @ 100 mls/hr IV Q6H [facility] Last Infusion: 04/05/25 03:00 Dose: Infused Documented By: OLENA Lisinopril (Lisinopril 20 Mg Tablet) 20 mg PO DAILY [facility]; Protocol Last Admin: 04/04/25 09:06 Dose: 20 mg Documented By: DENIA Melatonin (Melatonin 3 Mg Tablet) 6 mg PO BEDTIME PRN PRN Reason: Insomnia Metoprolol Succinate (Metoprolol Succinate Er 50 Mg Tab.Er.24h) 50 mg PO DAILY [facility]; Protocol Last Admin: 04/04/25 09:06 Dose: 50 mg Documented By: DENIA Non-Formulary Medication (Tadalafil) 5 mg PO DAILY [facility] Omeprazole (Omeprazole 40 Mg Capsule.Dr) 40 mg PO DAILY@0630 [facility] Last Admin: 04/05/25 06:45 Dose: 40 mg Documented By: OLENA Ondansetron HCl (Ondansetron Hcl 4 Mg/2 Ml Vial) 4 mg IVPUSH Q8H PRN PRN Reason: Nausea and Vomiting Oxycodone HCl (Oxycodone Hcl Immed Release 5 Mg Tablet) 10 mg PO Q4H PRN PRN Reason: Pain, Moderate(Pain Scale 4-6) Last Admin: 04/04/25 15:15 Dose: 10 mg Documented By: DENIA Sodium Chloride (0.9 % Sodium Chloride Flush 3 Ml Syringe) 3 ml IVFLUSH QSHIFT [facility] Last Admin: 04/05/25 00:09 Dose: Not Given Documented By: OLENA Non-Admin Reason: IV Running Tamsulosin HCl (Tamsulosin Hcl 0.4 Mg Capsule) 0.4 mg PO BEDTIME ZHANG Last Admin: 04/04/25 20:31 Dose: 0.4 mg Documented By: OLENA <Xochitl Hernandez PA-C - Last Filed: 04/05/25 07:43> Labs CBC & Chem 7: 04/05/25 08:37 04/05/25 08:37 <Xochitl Hernandez PA-C - Last Filed: 04/05/25 07:43> Labs: Laboratory Results - last 24 hr 04/04/25 20:32 Urine Color Yellow Urine Appearance Clear Urine pH 7.5 Ur Specific [place] >= 1.030 H Urine Protein Negative Urine Glucose (UA) Negative Urine Ketones Negative Urine Blood Negative Urine Nitrite Negative Ur Leukocyte Esterase Negative <Xochitl Hernandez PA-C - Last Filed: 04/05/25 07:43> Procedures Date of Service Date of Service: 04/05/25 <Xochitl Hernandez PA-C - Last Filed: 04/05/25 07:43> 04/05/25 <Carlos Navas MD - Last Filed: 04/05/25 15:34> Progress Note: A&P Assessment and plan (1) Small bowel obstruction: Status: Acute <Xochitl Hernandez PA-C - Last Filed: 04/05/25 07:43> Assessment and Plan: He continues to have right-sided abdominal pain although he says this is a lot better compared to yesterday No more nausea or vomiting Passing flatus Abdomen is soft and benign Cat scan from last night did not reveal any obvious source of pain LFTs ordered along with the ultrasound On IV Zosyn currently He does not want any surgical intervention 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 Also has hx of kidney stones, UA normal. ABD US ordered for today. Await LFTs. Cont IVF, IV zosyn for now. Await imaging. PAtient comfortable with plan. <Xochitl Hernandez PA-C - Last Filed: 04/05/25 07:43> Time Spent With Patient Time: Total time managing care of this patient today ____ minutes. <Xochitl Hernandez PA-C - Last Filed: 04/05/25 07:43> Quality Stroke Does the patient have a stroke diagnosis?: No <Xochitl Hernandez PA-C - Last Filed: 04/05/25 07:43> VTE Prior VTE?: No <Xochitl Hernandez PA-C - Last Filed: 04/05/25 07:43> VTE Risk Level:: Medical - moderate - high <Xochitl Hernandez PA-C - Last Filed: 04/05/25 07:43> VTE Device Contraindication: N/A - Device Ordered <Xochitl Hernandez PA-C - Last Filed: 04/05/25 07:43> VTE Drug Contraindication: N/A - Med Ordered <Xochitl Hernandez PA-C - Last Filed: 04/05/25 07:43>
[2025-04-05] MEDS: Dorzolamide HCl 2 % Ophth Sol 10 ML DRPBTL 1 DROP EYE-BOTH ×2 (08:10→20:26)
[2025-04-05] MEDS: Brimonidine Tartrate 0.2% Oph 5 ML BOTTLE 1 DROP EYE-BOTH ×2 (08:10→20:26)
[2025-04-05] MEDS: Ferrous Sulfate 324 MG TABLET.DR PO (08:11)
[2025-04-05] MEDS: Metoprolol Succinate ER 50 MG TAB.ER.24H PO (08:11)
[2025-04-05] MEDS: 0.9 % Sodium Chloride Flush 3 ML SYRINGE IVFLUSH ×3 (08:11→20:26)
[2025-04-05] MEDS: oxyCODONE HCl Immed Release 5 MG TABLET 10 MG PO ×3 (08:32→22:13)
[2025-04-05 09:00] LABS: Hematocrit 39.4 % (42.0-52.0); Hemoglobin 13.1 g/dl (14.0-18.0); Mean Corpuscular HGB Conc 33.2 g/dl (31.0-36.0); Mean Corpuscular Hemoglobin 28.7 pg (27.0-33.0); Mean Corpuscular Volume 86.4 fL (80.0-98.0); NRBC Abs Auto 0.000 X10*3/uL (0.0-0.012); NRBC Pct Auto 0.0 /100WBC (0.0-0.2); Platelet Count 198 X10*3/uL (160-400); Red Blood Count 4.56 X10*6/uL (4.60-5.80); White Blood Count 13.7 X10*3/uL (4.8-10.8)
[2025-04-05 09:21] LABS: Alanine Aminotransferase 14 U/L (0-40); Albumin Level 4.0 g/dL (3.5-5.0); Alkaline Phosphatase 80 U/L (39-117); Anion Gap 12 (12-20); Aspartate Amino Transferase 58 U/L (5-37); Blood Urea Nitrogen 16 mg/dL (9-16); Calcium 9.0 mg/dL (8.4-10.2); Carbon Dioxide 25 mmol/L (22-29); Chloride 103 mmol/L (96-108); Creatinine Clr Calc Pharmacy 116.2; Estimated Glomerular Filt Rate > 60; Lipase 22 U/L (8-78); Potassium 3.9 mmol/L (3.3-5.1); Sodium 136 mmol/L (135-145); Total Protein 7.6 g/dL (6.5-8.0)
[2025-04-05] MEDS: Lactated Ringers 1,000 ML 80 ML IVCONT (15:05)
--- NOTE | 2025-04-05 15:25 | MHC.CM.PN ---
EMR reviewed and per MD rounds, pt is not medically cleared for discharge due to manement of SBO.
--- NOTE | 2025-04-05 15:34 | PM.EVENT ---
Event Note Date of Service: 04/06/25 Event Note: Seen on afternoon rounds His ultrasound shows gallstones, but the gallbladder was contracted He did not have some pain in the area suggestive of sonographic Lim's sign I did tell him about the above and explained to him the option of proceeding with cholecystectomy I reviewed the technique of laparoscopic cholecystectomy and possible open I explained the risks including but not limited to bleeding, infections, injury to other organs including bowel liver and the bile duct He is strongly against surgery at this time as he says he already had major surgery last year and does not want any further surgeries if he can avoid it He feels that he has abdominal pain although still present is much better compared to yesterday He wants to continue with antibiotic treatment I did explain to him that if he does not improve or gets worse clinically, I would proceed with surgery or even tube cholecystostomy with IR if he prefers He says he understands and he would like to continue with current care for now I will repeat his labs in the morning Overall, he looks well this afternoon and a lot more comfortable He has had no fever He can have clear liquids He does not seem to have small-bowel obstruction symptoms currently Time Spent With Patient Time: Total time managing care of this patient today ____ minutes.
[2025-04-06] VITALS (8 sets, daily range): BP systolic 138–160; BP diastolic 72–84; PULSE 104–125; RESP 17–20; TEMP 36–37.3; O2SAT 92–97
[2025-04-06] MEDS: Lactated Ringers 1,000 ML 80 ML IVCONT (04:20)
[2025-04-06 05:56] LABS: MANUAL DIFF FLAG NO
[2025-04-06 06:13] LABS: Hematocrit 36.8 % (42.0-52.0); Hemoglobin 12.2 g/dl (14.0-18.0); Imm Gran Abs Auto 0.11 X10*3/uL (0.00-0.03); Imm Gran Pct Auto 0.7 % (0.0-0.4); Lymphocytes Absolute Auto 1.2 X10*3/uL (1.2-4.9); Mean Corpuscular HGB Conc 33.2 g/dl (31.0-36.0); Mean Corpuscular Hemoglobin 28.4 pg (27.0-33.0); Mean Corpuscular Volume 85.8 fL (80.0-98.0); NRBC Abs Auto 0.000 X10*3/uL (0.0-0.012); NRBC Pct Auto 0.0 /100WBC (0.0-0.2); Platelet Count 228 X10*3/uL (160-400); Red Blood Count 4.29 X10*6/uL (4.60-5.80); White Blood Count 16.3 X10*3/uL (4.8-10.8)
[2025-04-06 06:25] LABS: Alanine Aminotransferase 12 U/L (0-40); Alanine Aminotransferase 13 U/L (0-40); Albumin Level 3.6 g/dL (3.5-5.0); Alkaline Phosphatase 78 U/L (39-117); Alkaline Phosphatase 89 U/L (39-117); Anion Gap 14 (12-20); Aspartate Amino Transferase 51 U/L (5-37); Aspartate Amino Transferase 52 U/L (5-37); Blood Urea Nitrogen 18 mg/dL (9-16); Calcium 8.7 mg/dL (8.4-10.2); Carbon Dioxide 21 mmol/L (22-29); Chloride 103 mmol/L (96-108); Creatinine Clr Calc Pharmacy 96.6; Estimated Glomerular Filt Rate > 60; Potassium 4.0 mmol/L (3.3-5.1); Sodium 134 mmol/L (135-145); Total Protein 6.8 g/dL (6.5-8.0); Total Protein 6.9 g/dL (6.5-8.0)
--- NOTE | 2025-04-06 07:44 | P.PNGS_ITS ---
Subjective Subjective Date of Service: 04/06/25 <Xochitl Hernandez PA-C - Last Filed: 04/06/25 07:48> 04/06/25 <Carlos Navas MD - Last Filed: 04/06/25 09:10> Interval history: C/o to have RUQ pain. Febrile and tachycardic last night. <Xochitl Hernandez PA-C - Last Filed: 04/06/25 07:48> Physical Exam 2 Vital Signs: Vital Signs: Last Vital Signs Temp 97.7 F 04/06/25 07:00 Pulse 123 H 04/06/25 07:00 Resp 20 04/06/25 03:26 BP 150/73 H 04/06/25 07:00 Pulse Ox 94 04/06/25 07:00 O2 Del Method Room Air 04/06/25 07:00 BMI result Body Mass Index 34.8 <DENVER Dwyer Last Filed: 04/06/25 07:48> Const: General: comfortable, no acute distress and alert <Xochitl Hernandez PA-C - Last Filed: 04/06/25 07:48> Orientation/consciousness: patient oriented x3 <DENVER Dwyer Last Filed: 04/06/25 07:48> Resp: Effort & Inspection: normal respiratory effort <DENVER Dwyer Last Filed: 04/06/25 07:48> GI: Other: marked RUQ tenderness <Xochitl Hernandez PA-C - Last Filed: 04/06/25 07:48> Inspection: Yes distended <EDNVER Dwyer Last Filed: 04/06/25 07:48> Palpation (GI): Soft to palpation and no guarding <DENVER Dwyer Last Filed: 04/06/25 07:48> Skin: General skin exam: no rashes or lesions noted and no jaundice < DENVER Dwyer Last Filed: 04/06/25 07:48> Neuro: General: patient oriented x3 and moves all extremities <DENVER Dwyer Last Filed: 04/06/25 07:48> Objective Data Active Medications Acetaminophen (Acetaminophen 325 Mg Tablet) 650 mg PO Q6H PRN PRN Reason: Pain, Mild 1-3,fever,headache Last Admin: 04/05/25 20:30 Dose: 650 mg Documented By: OLENA Amlodipine Besylate (Amlodipine Besylate 10 Mg Tablet) 10 mg PO DAILY [facility]; Protocol Last Admin: 04/05/25 08:11 Dose: 10 mg Documented By: ABDIEL Benzocaine (Throat Lozenge, Medicated Lozenge) 1 lozenge MUCOUS MEM Q2H PRN PRN Reason: Sore Throat Last Admin: 04/03/25 21:44 Dose: 1 lozenge Documented By: CAM Brimonidine Tartrate (Brimonidine Tartrate 0.2% Oph 5 Ml Bottle) 1 drop EYE- BOTH BID [facility] Last Admin: 04/05/25 20:26 Dose: 1 drop Documented By: OLENA Dorzolamide HCl (Dorzolamide Hcl 2 % Ophth Aminah 10 Ml Drpbtl) 1 drop EYE-BOTH BID [facility] Last Admin: 04/05/25 20:26 Dose: 1 drop Documented By: OLENA Ferrous Sulfate (Ferrous Sulfate 324 Mg Tablet.Dr) 324 mg PO DAILY [facility] Last Admin: 04/05/25 08:11 Dose: 324 mg Documented By: ABDIEL Finasteride (Finasteride 5 Mg Tablet) 5 mg PO DAILY [facility] Last Admin: 04/05/25 08:11 Dose: 5 mg Documented By: ABDIEL Heparin Sodium (Porcine) (Heparin Sodium,Porcine 5,000 Unit/Ml Vial) 5,000 unit SUBCUT Q12H [facility] Last Admin: 04/05/25 21:31 Dose: 5,000 unit Documented By: OLENA Hydralazine HCl (Hydralazine Hcl 20 Mg/Ml Vial) 10 mg IVPUSH Q6H PRN; Protocol PRN Reason: SBP > 160 Last Admin: 04/04/25 13:46 Dose: 10 mg Documented By: DENIA Hydromorphone HCl (Hydromorphone Hcl 1 Mg/Ml Syringe) 1 mg IVPUSH Q3H PRN; Protocol PRN Reason: Pain, Severe (Pain Scale 7-10) Last Admin: 04/06/25 04:20 Dose: 1 mg Documented By: OLENA Hydroxyzine HCl (Hydroxyzine Hcl 25 Mg Tablet) 25 mg PO BEDTIME PRN PRN Reason: Insomnia Lactated Ringer's (Lr) 1,000 mls @ 80 mls/hr IVCONT .[id number] [facility] Last Admin: 04/06/25 04:20 Dose: 80 mls/hr Documented By: OLENA Piperacillin Sod/Tazobactam (Sod 3.375 gm/ Sodium Chloride) 50 mls @ 100 mls/hr IV Q6H [facility] Last Infusion: 04/06/25 03:30 Dose: Infused Documented By: OLENA Lisinopril (Lisinopril 20 Mg Tablet) 20 mg PO DAILY [facility]; Protocol Last Admin: 04/05/25 08:11 Dose: 20 mg Documented By: ABDIEL Melatonin (Melatonin 3 Mg Tablet) 6 mg PO BEDTIME PRN PRN Reason: Insomnia Metoprolol Succinate (Metoprolol Succinate Er 50 Mg Tab.Er.24h) 50 mg PO DAILY [facility]; Protocol Last Admin: 04/05/25 08:11 Dose: 50 mg Documented By: ABDIEL Non-Formulary Medication (Tadalafil) 5 mg PO DAILY [facility] Omeprazole (Omeprazole 40 Mg Capsule.Dr) 40 mg PO DAILY@0630 [facility] Last Admin: 04/06/25 06:44 Dose: 40 mg Documented By: OLENA Ondansetron HCl (Ondansetron Hcl 4 Mg/2 Ml Vial) 4 mg IVPUSH Q8H PRN PRN Reason: Nausea and Vomiting Oxycodone HCl (Oxycodone Hcl Immed Release 5 Mg Tablet) 10 mg PO Q4H PRN PRN Reason: Pain, Moderate(Pain Scale 4-6) Last Admin: 04/05/25 22:13 Dose: 10 mg Documented By: OLENA Sodium Chloride (0.9 % Sodium Chloride Flush 3 Ml Syringe) 3 ml IVFLUSH QSHIFT [facility] Last Admin: 04/05/25 20:26 Dose: 3 ml Documented By: OLENA Tamsulosin HCl (Tamsulosin Hcl 0.4 Mg Capsule) 0.4 mg PO BEDTIME [facility] Last Admin: 04/05/25 20:26 Dose: 0.4 mg Documented By: OLENA <Xochitl Hernandez PA-C - Last Filed: 04/06/25 07:48> Labs CBC & Chem 7: 04/06/25 05:45 04/06/25 05:45 <Xochitl Hernandez PA-C - Last Filed: 04/06/25 07:48> Labs: Laboratory Results - last 24 hr 04/05/25 04/05/25 04/06/25 08:37 21:13 05:45 MCV 86.4 85.8 MCH 28.7 28.4 MCHC 33.2 33.2 RDW 15.2 15.3 Plt Count 198 228 MPV 10.2 9.9 Immature Gran % (Auto) 0.7 H Neut % (Auto) 82.6 H Lymph % (Auto) 7.4 L [place] % (Auto) 9.0 Eos % (Auto) 0.1 Baso % (Auto) 0.2 Lymph # (Auto) 1.2 [place] # (Auto) 1.5 H Eos # (Auto) 0.0 Baso # (Auto) 0.0 Abs Immat Gran (auto) 0.11 H Absolute Neuts (auto) 13.4 H Absolute Nucleated RBC 0.000 0.000 Nucleated RBC % (auto) 0.0 0.0 Hold Purple Top SEE NOTE Anion Gap 12 14 Estim Creat Clear Calc 116.2 96.6 Estimated GFR > 60 > 60 Random Glucose 94 102 Lactic Acid 0.7 Calcium 9.0 8.7 Total Bilirubin 1.3 H 1.5 H Direct Bilirubin 0.5 AST 58 H ALT 14 Alkaline Phosphatase 80 Total Protein 7.6 Albumin 4.0 Lipase 22 04/06/25 04/06/25 04/06/25 05:45 05:45 05:45 MCV MCH MCHC RDW Plt Count MPV Immature Gran % (Auto) Neut % (Auto) Lymph % (Auto) [place] % (Auto) Eos % (Auto) Baso % (Auto) Lymph # (Auto) [place] # (Auto) Eos # (Auto) Baso # (Auto) Abs Immat Gran (auto) Absolute Neuts (auto) Absolute Nucleated RBC Nucleated RBC % (auto) Hold Purple Top Anion Gap Estim Creat Clear Calc Estimated GFR Random Glucose Lactic Acid Calcium Total Bilirubin 1.5 H Direct Bilirubin 0.8 H AST 52 H 51 H ALT 12 13 Alkaline Phosphatase 78 Total Protein Albumin Lipase 04/06/25 04/06/25 04/06/25 05:45 05:45 05:45 MCV MCH MCHC RDW Plt Count MPV Immature Gran % (Auto) Neut % (Auto) Lymph % (Auto) [place] % (Auto) Eos % (Auto) Baso % (Auto) Lymph # (Auto) [place] # (Auto) Eos # (Auto) Baso # (Auto) Abs Immat Gran (auto) Absolute Neuts (auto) Absolute Nucleated RBC Nucleated RBC % (auto) Hold Purple Top Anion Gap Estim Creat Clear Calc Estimated GFR Random Glucose Lactic Acid Calcium Total Bilirubin Direct Bilirubin AST ALT Alkaline Phosphatase 89 Total Protein 6.8 6.9 Albumin 3.6 3.6 Lipase <Xochitl Hernnadez PA-C - Last Filed: 04/06/25 07:48> Procedures Date of Service Date of Service: 04/06/25 <Xochitl Hernandez PA-C - Last Filed: 04/06/25 07:48> 04/06/25 <Carlos Navas MD - Last Filed: 04/06/25 09:10> Progress Note: A&P Assessment and plan (1) Acute cholecystitis: Status: Acute <Xochitl Hernandez PA-C - Last Filed: 04/06/25 07:48> Assessment and Plan: Still has some pain but says he feels better overall no nausea or vomiting Still with tenderness He says he does not want to go through surgery at this time I was able to convince him to at least have a cholecystostomy tube drain and he agrees IR consulted Continue IV antibiotics Abdomen is soft Ambulate Daughter Maria De Jesus involved Seen and examined independently <Carlos Navas MD - Last Filed: 04/06/25 09:10> Assessment and Plan: Febrile and tachycardic overnight. WBC now up to 16. Remains very tender in RUQ. Discussed proceeding with cholecystectomy or the very least cholecystostomy drain as he is not improving with just IV abx. He would like to think about his options. Will consult IR for possible cholecystostomy drain today. <Xochitl Hernandez PA-C - Last Filed: 04/06/25 07:48> Time Spent With Patient Time: Total time managing care of this patient today ____ minutes. <Xochitl Hernandez PA-C - Last Filed: 04/06/25 07:48> Quality Stroke Does the patient have a stroke diagnosis?: No <Xochitl Hernandez PA-C - Last Filed: 04/06/25 07:48> VTE Prior VTE?: No <Xochitl Hernandez PA-C - Last Filed: 04/06/25 07:48> VTE Risk Level:: Medical - moderate - high <Xochitl Hernandez PA-C - Last Filed: 04/06/25 07:48> VTE Device Contraindication: N/A - Device Ordered <Xochitl Hernandez PA-C - Last Filed: 04/06/25 07:48> VTE Drug Contraindication: N/A - Med Ordered <Xochitl Hernandez PA-C - Last Filed: 04/06/25 07:48>
[2025-04-06] MEDS: Metoprolol Succinate ER 50 MG TAB.ER.24H PO (08:12)
[2025-04-06] MEDS: Ferrous Sulfate 324 MG TABLET.DR PO (08:12)
[2025-04-06] MEDS: 0.9 % Sodium Chloride Flush 3 ML SYRINGE IVFLUSH (08:21)
[2025-04-06] MEDS: Dorzolamide HCl 2 % Ophth Sol 10 ML DRPBTL 1 DROP EYE-BOTH ×2 (08:22→20:11)
[2025-04-06] MEDS: Brimonidine Tartrate 0.2% Oph 5 ML BOTTLE 1 DROP EYE-BOTH ×2 (08:22→20:09)
[2025-04-06] MEDS: oxyCODONE HCl Immed Release 5 MG TABLET 10 MG PO ×4 (09:03→22:54)
--- NOTE | 2025-04-06 10:57 | HO.PM.IMPN ---
Subjective Subjective Date of Service: 04/06/25 Physical Exam Vital Signs: Vital Signs: Last Vital Signs Temp 97.7 F 04/06/25 07:00 Pulse 125 H 04/06/25 08:02 Resp 20 04/06/25 03:26 BP 147/83 H 04/06/25 08:02 Pulse Ox 94 04/06/25 07:00 O2 Del Method Room Air 04/06/25 07:00 BMI result Body Mass Index 34.8 Objective Data Active Medications Acetaminophen (Acetaminophen 325 Mg Tablet) 650 mg PO Q6H PRN PRN Reason: Pain, Mild 1-3,fever,headache Last Admin: 04/05/25 20:30 Dose: 650 mg Documented By: OLENA Amlodipine Besylate (Amlodipine Besylate 10 Mg Tablet) 10 mg PO DAILY [facility]; Protocol Last Admin: 04/06/25 08:12 Dose: 10 mg Documented By: ABDIEL Benzocaine (Throat Lozenge, Medicated Lozenge) 1 lozenge MUCOUS MEM Q2H PRN PRN Reason: Sore Throat Last Admin: 04/03/25 21:44 Dose: 1 lozenge Documented By: CAM Brimonidine Tartrate (Brimonidine Tartrate 0.2% Oph 5 Ml Bottle) 1 drop EYE-BOTH BID [facility] Last Admin: 04/06/25 08:22 Dose: 1 drop Documented By: ABDIEL Diazepam (Diazepam 10 Mg/2 Ml Cartridge) 10 mg IVPUSH Q4H PRN PRN Reason: Anxiety Dorzolamide HCl (Dorzolamide Hcl 2 % Ophth Aminah 10 Ml Drpbtl) 1 drop EYE-BOTH BID [facility] Last Admin: 04/06/25 08:22 Dose: 1 drop Documented By: ABDIEL Ferrous Sulfate (Ferrous Sulfate 324 Mg Tablet.Dr) 324 mg PO DAILY [facility] Last Admin: 04/06/25 08:12 Dose: 324 mg Documented By: ABDIEL Finasteride (Finasteride 5 Mg Tablet) 5 mg PO DAILY [facility] Last Admin: 04/06/25 08:12 Dose: 5 mg Documented By: ABDIEL Heparin Sodium (Porcine) (Heparin Sodium,Porcine 5,000 Unit/Ml Vial) 5,000 unit SUBCUT Q12H [facility] Last Admin: 04/06/25 09:03 Dose: 5,000 unit Documented By: ABDIEL Hydralazine HCl (Hydralazine Hcl 20 Mg/Ml Vial) 10 mg IVPUSH Q6H PRN; Protocol PRN Reason: SBP > 160 Last Admin: 04/04/25 13:46 Dose: 10 mg Documented By: DENIA Hydromorphone HCl (Hydromorphone Hcl 1 Mg/Ml Syringe) 1 mg IVPUSH Q3H PRN; Protocol PRN Reason: Pain, Severe (Pain Scale 7-10) Last Admin: 04/06/25 08:12 Dose: 1 mg Documented By: ABDIEL Hydroxyzine HCl (Hydroxyzine Hcl 25 Mg Tablet) 25 mg PO BEDTIME PRN PRN Reason: Insomnia Lactated Ringer's (Lr) 1,000 mls @ 125 mls/hr IVCONT .Q8H [facility] Last Infusion: 04/06/25 08:55 Dose: 80 mls/hr Documented By: ABDIEL Piperacillin Sod/Tazobactam (Sod 3.375 gm/ Sodium Chloride) 50 mls @ 100 mls/hr IV Q6H [facility] Last Infusion: 04/06/25 08:55 Dose: Infused Documented By: ABDIEL Lisinopril (Lisinopril 20 Mg Tablet) 20 mg PO DAILY [facility]; Protocol Last Admin: 04/06/25 08:12 Dose: 20 mg Documented By: ABDIEL Melatonin (Melatonin 3 Mg Tablet) 6 mg PO BEDTIME PRN PRN Reason: Insomnia Metoprolol Succinate (Metoprolol Succinate Er 50 Mg Tab.Er.24h) 50 mg PO DAILY [facility]; Protocol Last Admin: 04/06/25 08:12 Dose: 50 mg Documented By: ABDIEL Non-Formulary Medication (Tadalafil) 5 mg PO DAILY [facility] Omeprazole (Omeprazole 40 Mg Capsule.Dr) 40 mg PO DAILY@0630 [facility] Last Admin: 04/06/25 06:44 Dose: 40 mg Documented By: OLENA Ondansetron HCl (Ondansetron Hcl 4 Mg/2 Ml Vial) 4 mg IVPUSH Q8H PRN PRN Reason: Nausea and Vomiting Oxycodone HCl (Oxycodone Hcl Immed Release 5 Mg Tablet) 10 mg PO Q4H PRN PRN Reason: Pain, Moderate(Pain Scale 4-6) Last Admin: 04/06/25 09:03 Dose: 10 mg Documented By: ABDIEL Sodium Chloride (0.9 % Sodium Chloride Flush 3 Ml Syringe) 3 ml IVFLUSH QSHIFT [facility] Last Admin: 04/06/25 08:21 Dose: 3 ml Documented By: ABDIEL Tamsulosin HCl (Tamsulosin Hcl 0.4 Mg Capsule) 0.4 mg PO BEDTIME [facility] Last Admin: 04/05/25 20:26 Dose: 0.4 mg Documented By: OLENA Labs 04/06/25 05:45 04/06/25 05:45 Labs: Laboratory Results - last 24 hr 04/05/25 04/06/25 04/06/25 21:13 05:45 05:45 MCV 85.8 MCH 28.4 MCHC 33.2 RDW 15.3 Plt Count 228 MPV 9.9 Immature Gran % (Auto) 0.7 H Neut % (Auto) 82.6 H Lymph % (Auto) 7.4 L [place] % (Auto) 9.0 Eos % (Auto) 0.1 Baso % (Auto) 0.2 Lymph # (Auto) 1.2 [place] # (Auto) 1.5 H Eos # (Auto) 0.0 Baso # (Auto) 0.0 Abs Immat Gran (auto) 0.11 H Absolute Neuts (auto) 13.4 H Absolute Nucleated RBC 0.000 Nucleated RBC % (auto) 0.0 Hold Purple Top SEE NOTE Anion Gap 14 Estim Creat Clear Calc 96.6 Estimated GFR > 60 Random Glucose 102 Lactic Acid 0.7 Calcium 8.7 Total Bilirubin 1.5 H 1.5 H Direct Bilirubin 0.8 H AST 52 H ALT Alkaline Phosphatase Total Protein Albumin 04/06/25 04/06/25 04/06/25 05:45 05:45 05:45 MCV MCH MCHC RDW Plt Count MPV Immature Gran % (Auto) Neut % (Auto) Lymph % (Auto) [place] % (Auto) Eos % (Auto) Baso % (Auto) Lymph # (Auto) [place] # (Auto) Eos # (Auto) Baso # (Auto) Abs Immat Gran (auto) Absolute Neuts (auto) Absolute Nucleated RBC Nucleated RBC % (auto) Hold Purple Top Anion Gap Estim Creat Clear Calc Estimated GFR Random Glucose Lactic Acid Calcium Total Bilirubin Direct Bilirubin AST 51 H ALT 12 13 Alkaline Phosphatase 78 89 Total Protein 6.8 Albumin 04/06/25 04/06/25 05:45 05:45 MCV MCH MCHC RDW Plt Count MPV Immature Gran % (Auto) Neut % (Auto) Lymph % (Auto) [place] % (Auto) Eos % (Auto) Baso % (Auto) Lymph # (Auto) [place] # (Auto) Eos # (Auto) Baso # (Auto) Abs Immat Gran (auto) Absolute Neuts (auto) Absolute Nucleated RBC Nucleated RBC % (auto) Hold Purple Top Anion Gap Estim Creat Clear Calc Estimated GFR Random Glucose Lactic Acid Calcium Total Bilirubin Direct Bilirubin AST ALT Alkaline Phosphatase Total Protein 6.9 Albumin 3.6 3.6 Quality Stroke Does the patient have a stroke diagnosis?: No VTE Prior VTE?: No VTE Risk Level:: Medical - moderate - high VTE Device Contraindication: N/A - Device Ordered VTE Drug Contraindication: N/A - Med Ordered
--- NOTE | 2025-04-06 12:10 | HO.ANESPROP2 ---
Documented by User: Mojgan Cam NP 04/06/25 13:05 HPI - Anesthesia Eval Consult details Narrative: 69 yr old male for laparoscopic cholecystectomy, possible open vs cholecystostomy drain No recent illness prior to admission; febrile overnight 04/05/25, on IV antibxs. No CP with stair-climbing; he experienced SOB going up stairs day of his admission 04/02/25, which is not a change from baseline; describes deconditioned since surgery at [facility] 08/2023, requiring several post op hospitalizations. Denies CAD. 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 Recent hospital admission for acute hemorrhagic shock due to acute blood loss anemia from upper GI bleed. He was intubated, admitted to the intensive care unit and given total of 14 units PRBC, 4 FFP, 2 platelets. Underwent IR embolization of left gastric artery which was successful; extubated 01/11/2025 and remained stable; hemoglobin has remained stable. ALEXANDRA: intermittent CPAP use per pt. Chronic Hep C PCP is Jacqueline Buck MD at [place]. [facility] Active Problems Active Problems: All Active Problems Acute cholecystitis (Acute) Hypertension (Acute) Small bowel obstruction (Acute) Partial small bowel obstruction (Acute) Nausea, vomiting, and diarrhea (Acute) Abdominal pain (Acute) Upper GI bleed (Acute) BPH (benign prostatic hyperplasia) (Acute) Urinary retention due to benign prostatic hyperplasia (Acute) Hx of splenectomy (Acute) History of pancreatectomy (Acute) Abnormal CT of the abdomen (Acute) Anemia (Acute) Colon cancer screening (Acute) Glaucoma (Acute) Chronic bronchitis (Acute) Obesity (BMI 35.0-39.9 without comorbidity) (Acute) SCHULTZ (nonalcoholic steatohepatitis) (Acute) Past Medical History Medical History Right upper quadrant pain Partial small bowel obstruction BPH (benign prostatic hyperplasia) Hypertension Upper GI bleed SCHULTZ (nonalcoholic steatohepatitis) Erectile dysfunction Chronic hepatitis C virus genotype 1a infection Family History Family history of problems with anesthesia: No Surgical History Surgical History History of esophagogastroduodenoscopy (EGD) History of pancreatectomy Hx of splenectomy History of Problems with Anesthesia: No Social History Social History Household Members: Family Housing: House Are you a primary critical care paramedic to a significant other at home: No Do you presently have visiting nurse or other home services: No Comment: bilateral wrist restraints for airway safety Patient Tobacco Use Status: Former Tobacco user service: Yes Meds Allergies Allergy/AdvReac Type Severity Reaction Status Date / Time No Known Allergies Allergy Verified 04/02/25 15:44 Active Medications: Current Medications Acetaminophen (Acetaminophen 325 Mg Tablet) 650 mg PO Q6H PRN PRN Reason: Pain, Mild 1-3,fever,headache Last Admin: 04/05/25 20:30 Dose: 650 mg Amlodipine Besylate (Amlodipine Besylate 10 Mg Tablet) 10 mg PO DAILY [facility]; Protocol Last Admin: 04/06/25 08:12 Dose: 10 mg Benzocaine (Throat Lozenge, Medicated Lozenge) 1 lozenge MUCOUS MEM Q2H PRN PRN Reason: Sore Throat Last Admin: 04/03/25 21:44 Dose: 1 lozenge Brimonidine Tartrate (Brimonidine Tartrate 0.2% Oph 5 Ml Bottle) 1 drop EYE-BOTH BID [facility] Last Admin: 04/06/25 08:22 Dose: 1 drop Diazepam (Diazepam 10 Mg/2 Ml Cartridge) 10 mg IVPUSH Q4H PRN PRN Reason: Anxiety Dorzolamide HCl (Dorzolamide Hcl 2 % Ophth Aminah 10 Ml Drpbtl) 1 drop EYE-BOTH BID [facility] Last Admin: 04/06/25 08:22 Dose: 1 drop Ferrous Sulfate (Ferrous Sulfate 324 Mg Tablet.Dr) 324 mg PO DAILY [facility] Last Admin: 04/06/25 08:12 Dose: 324 mg Finasteride (Finasteride 5 Mg Tablet) 5 mg PO DAILY [facility] Last Admin: 04/06/25 08:12 Dose: 5 mg Heparin Sodium (Porcine) (Heparin Sodium,Porcine 5,000 Unit/Ml Vial) 5,000 unit SUBCUT Q12H ZHANG Last Admin: 04/06/25 09:03 Dose: 5,000 unit Hydralazine HCl (Hydralazine Hcl 20 Mg/Ml Vial) 10 mg IVPUSH Q6H PRN; Protocol PRN Reason: SBP > 160 Last Admin: 04/04/25 13:46 Dose: 10 mg Hydromorphone HCl (Hydromorphone Hcl 1 Mg/Ml Syringe) 1 mg IVPUSH Q3H PRN; Protocol PRN Reason: Pain, Severe (Pain Scale 7-10) Last Admin: 04/06/25 08:12 Dose: 1 mg Hydroxyzine HCl (Hydroxyzine Hcl 25 Mg Tablet) 25 mg PO BEDTIME PRN PRN Reason: Insomnia Lactated Ringer's (Lr) 1,000 mls @ 125 mls/hr IVCONT .Q8H ZHANG Last Infusion: 04/06/25 10:59 Dose: 125 mls/hr Piperacillin Sod/Tazobactam (Sod 3.375 gm/ Sodium Chloride) 50 mls @ 100 mls/hr IV Q6H ZHANG Last Infusion: 04/06/25 08:55 Dose: Infused Vancomycin HCl 1,000 mg/ (Sodium Chloride) 270 mls @ 270 mls/hr IV Q12H ZHANG Vancomycin HCl (Vancomycin/Ns) 2,000 mg in 500 mls @ 250 mls/hr IV ONCE ONE Stop: 04/06/25 12:59 Lisinopril (Lisinopril 20 Mg Tablet) 20 mg PO DAILY [facility]; Protocol Last Admin: 04/06/25 08:12 Dose: 20 mg Melatonin (Melatonin 3 Mg Tablet) 6 mg PO BEDTIME PRN PRN Reason: Insomnia Metoprolol Succinate (Metoprolol Succinate Er 50 Mg Tab.Er.24h) 50 mg PO DAILY [facility]; Protocol Last Admin: 04/06/25 08:12 Dose: 50 mg Non-Formulary Medication (Tadalafil) 5 mg PO DAILY [facility] Omeprazole (Omeprazole 40 Mg Capsule.Dr) 40 mg PO DAILY@0630 [facility] Last Admin: 04/06/25 06:44 Dose: 40 mg Ondansetron HCl (Ondansetron Hcl 4 Mg/2 Ml Vial) 4 mg IVPUSH Q8H PRN PRN Reason: Nausea and Vomiting Oxycodone HCl (Oxycodone Hcl Immed Release 5 Mg Tablet) 10 mg PO Q4H PRN PRN Reason: Pain, Moderate(Pain Scale 4-6) Last Admin: 04/06/25 09:03 Dose: 10 mg Pharmacy Consult (Consult Rx Vancomycin Dosing) 1 each MISCELLANE DAILY PRN PRN Reason: Consult order Sodium Chloride (0.9 % Sodium Chloride Flush 3 Ml Syringe) 3 ml IVFLUSH QSHIFT [facility] Last Admin: 04/06/25 08:21 Dose: 3 ml Tamsulosin HCl (Tamsulosin Hcl 0.4 Mg Capsule) 0.4 mg PO BEDTIME [facility] Last Admin: 04/05/25 20:26 Dose: 0.4 mg Home Medications ?Medication ?Instructions ?Recorded ?Confirmed ?Last Taken ?Type brinzolamide 1 %-brimonidine 0.2 % 1 drp ophthalmic (eye) BID 01/07/25 04/02/25 04/02/25 History eye drops,suspension (Simbrinza) hydroxyzine HCl 25 mg tablet 25 mg PO BEDTIME PRN Insomnia 01/07/25 04/02/25 Unknown History tadalafil 20 mg tablet 5 mg PO DAILY 01/07/25 04/02/25 04/02/25 History omeprazole 40 mg capsule,delayed 40 mg PO DAILY@0630 04/02/25 04/02/25 04/02/25 History release Exam Height,Weight and Vital Signs: Height 6 ft Weight 116.4 kg Last Vital Signs Temp 96.8 F 04/06/25 11:36 Pulse 118 H 04/06/25 11:36 Resp 17 04/06/25 11:36 BP 138/72 04/06/25 11:36 Pulse Ox 93 04/06/25 11:36 O2 Del Method Room Air 04/06/25 11:36 Pertinent Lab Results Pertinent Lab Results: Laboratory Tests 04/02/25 04/03/25 04/03/25 17:21 07:22 14:50 WBC 11.2 H 10.7 RBC 4.67 D 4.71 Hgb 13.3 L D 13.4 L Hct 40.2 L D 41.2 L MCV 86.1 87.5 MCH 28.5 28.5 MCHC 33.1 32.5 RDW 15.1 15.3 Plt Count 264 D 287 MPV 8.6 L 9.4 Immature Gran % (Auto) 0.4 0.2 Neut % (Auto) 77.9 H 78.4 H Lymph % (Auto) 13.2 L 14.1 L [place] % (Auto) 7.4 6.8 Eos % (Auto) 0.7 0.2 Baso % (Auto) 0.4 0.3 Lymph # (Auto) 1.5 1.5 [place] # (Auto) 0.8 0.7 Eos # (Auto) 0.1 0.0 Baso # (Auto) 0.0 0.0 Abs Immat Gran (auto) 0.04 H 0.02 Absolute Neuts (auto) 8.7 H 8.4 H Absolute Nucleated RBC 0.000 0.000 Nucleated RBC % (auto) 0.0 0.0 Hold Purple Top PT 11.6 INR 1.0 Sodium 141 142 Potassium 4.1 4.2 Chloride 114 H 107 Carbon Dioxide 19 L 25 Anion Gap 12 14 BUN 16 20 H Creatinine 0.94 0.90 Estim Creat Clear Calc 96.8 102.0 Estimated GFR > 60 > 60 Random Glucose 117 H 112 Fasting Glucose Lactic Acid Calcium 8.9 9.1 Magnesium 2.3 Total Bilirubin 0.3 Direct Bilirubin AST 49 H ALT 18 Alkaline Phosphatase 87 Troponin I High Sens < 2.7 Total Protein 7.6 Albumin 4.2 Lipase Urine Color Yellow Urine Appearance Clear Urine pH 5.5 Ur Specific [place] >= 1.030 H Urine Protein Trace Urine Glucose (UA) Negative Urine Ketones Negative Urine Blood Negative Urine Nitrite Negative Ur Leukocyte Esterase Negative Influenza Type A (PCR) NEGATIVE Influenza Type B (PCR) NEGATIVE RSV RNA Qual (PCR) NEGATIVE SARS-CoV-2 RNA (RT-PCR) NEGATIVE 04/04/25 04/04/25 04/05/25 05:26 20:32 08:37 WBC 8.7 13.7 H RBC 4.31 L 4.56 L Hgb 12.3 L 13.1 L Hct 36.7 L 39.4 L MCV 85.2 86.4 MCH 28.5 28.7 MCHC 33.5 33.2 RDW 15.2 15.2 Plt Count 257 198 MPV 9.2 L 10.2 Immature Gran % (Auto) 0.2 Neut % (Auto) 64.7 Lymph % (Auto) 21.5 [place] % (Auto) 12.6 H Eos % (Auto) 0.7 Baso % (Auto) 0.3 Lymph # (Auto) 1.9 [place] # (Auto) 1.1 Eos # (Auto) 0.1 Baso # (Auto) 0.0 Abs Immat Gran (auto) 0.02 Absolute Neuts (auto) 5.6 Absolute Nucleated RBC 0.000 0.000 Nucleated RBC % (auto) 0.0 0.0 Hold Purple Top PT INR Sodium 141 136 Potassium 3.7 3.9 Chloride 105 103 Carbon Dioxide 24 25 Anion Gap 16 12 BUN 17 H 16 Creatinine 0.67 0.79 Estim Creat Clear Calc 137.0 116.2 Estimated GFR > 60 > 60 Random Glucose 94 Fasting Glucose 112 H Lactic Acid Calcium 8.9 9.0 Magnesium Total Bilirubin 0.9 1.3 H Direct Bilirubin 0.5 AST 44 H 58 H ALT 14 14 Alkaline Phosphatase 78 80 Troponin I High Sens Total Protein 7.2 7.6 Albumin 3.9 4.0 Lipase 22 Urine Color Yellow Urine Appearance Clear Urine pH 7.5 Ur Specific [place] >= 1.030 H Urine Protein Negative Urine Glucose (UA) Negative Urine Ketones Negative Urine Blood Negative Urine Nitrite Negative Ur Leukocyte Esterase Negative Influenza Type A (PCR) Influenza Type B (PCR) RSV RNA Qual (PCR) SARS-CoV-2 RNA (RT-PCR) 04/05/25 04/06/25 04/06/25 21:13 05:45 05:45 WBC 16.3 H RBC 4.29 L Hgb 12.2 L Hct 36.8 L MCV 85.8 MCH 28.4 MCHC 33.2 RDW 15.3 Plt Count 228 MPV 9.9 Immature Gran % (Auto) 0.7 H Neut % (Auto) 82.6 H Lymph % (Auto) 7.4 L [place] % (Auto) 9.0 Eos % (Auto) 0.1 Baso % (Auto) 0.2 Lymph # (Auto) 1.2 [place] # (Auto) 1.5 H Eos # (Auto) 0.0 Baso # (Auto) 0.0 Abs Immat Gran (auto) 0.11 H Absolute Neuts (auto) 13.4 H Absolute Nucleated RBC 0.000 Nucleated RBC % (auto) 0.0 Hold Purple Top SEE NOTE PT INR Sodium 134 L Potassium 4.0 Chloride 103 Carbon Dioxide 21 L Anion Gap 14 BUN 18 H Creatinine 0.95 Estim Creat Clear Calc 96.6 Estimated GFR > 60 Random Glucose 102 Fasting Glucose Lactic Acid 0.7 Calcium 8.7 Magnesium Total Bilirubin 1.5 H 1.5 H Direct Bilirubin 0.8 H AST 52 H ALT Alkaline Phosphatase Troponin I High Sens Total Protein Albumin Lipase Urine Color Urine Appearance Urine pH Ur Specific [place] Urine Protein Urine Glucose (UA) Urine Ketones Urine Blood Urine Nitrite Ur Leukocyte Esterase Influenza Type A (PCR) Influenza Type B (PCR) RSV RNA Qual (PCR) SARS-CoV-2 RNA (RT-PCR) 04/06/25 04/06/25 04/06/25 05:45 05:45 05:45 WBC RBC Hgb Hct MCV MCH MCHC RDW Plt Count MPV Immature Gran % (Auto) Neut % (Auto) Lymph % (Auto) [place] % (Auto) Eos % (Auto) Baso % (Auto) Lymph # (Auto) [place] # (Auto) Eos # (Auto) Baso # (Auto) Abs Immat Gran (auto) Absolute Neuts (auto) Absolute Nucleated RBC Nucleated RBC % (auto) Hold Purple Top PT INR Sodium Potassium Chloride Carbon Dioxide Anion Gap BUN Creatinine Estim Creat Clear Calc Estimated GFR Random Glucose Fasting Glucose Lactic Acid Calcium Magnesium Total Bilirubin Direct Bilirubin AST 51 H ALT 12 13 Alkaline Phosphatase 78 89 Troponin I High Sens Total Protein 6.8 Albumin Lipase Urine Color Urine Appearance Urine pH Ur Specific [place] Urine Protein Urine Glucose (UA) Urine Ketones Urine Blood Urine Nitrite Ur Leukocyte Esterase Influenza Type A (PCR) Influenza Type B (PCR) RSV RNA Qual (PCR) SARS-CoV-2 RNA (RT-PCR) 04/06/25 04/06/25 05:45 05:45 WBC RBC Hgb Hct MCV MCH MCHC RDW Plt Count MPV Immature Gran % (Auto) Neut % (Auto) Lymph % (Auto) [place] % (Auto) Eos % (Auto) Baso % (Auto) Lymph # (Auto) [place] # (Auto) Eos # (Auto) Baso # (Auto) Abs Immat Gran (auto) Absolute Neuts (auto) Absolute Nucleated RBC Nucleated RBC % (auto) Hold Purple Top PT INR Sodium Potassium Chloride Carbon Dioxide Anion Gap BUN Creatinine Estim Creat Clear Calc Estimated GFR Random Glucose Fasting Glucose Lactic Acid Calcium Magnesium Total Bilirubin Direct Bilirubin AST ALT Alkaline Phosphatase Troponin I High Sens Total Protein 6.9 Albumin 3.6 3.6 Lipase Urine Color Urine Appearance Urine pH Ur Specific [place] Urine Protein Urine Glucose (UA) Urine Ketones Urine Blood Urine Nitrite Ur Leukocyte Esterase Influenza Type A (PCR) Influenza Type B (PCR) RSV RNA Qual (PCR) SARS-CoV-2 RNA (RT-PCR) Narrative Narrative: EKG 03/2025 Vent. Rate : 58 BPM Atrial Rate : 58 BPM P-R Int : 144 ms QRS Dur : 98 ms QT Int : 442 ms P-R-T Axes : 72 -6 31 degrees QTcB Int : 433 ms Sinus bradycardia Cannot rule out Anterior infarct , age undetermined - could be related to body habitus and lead placement Borderline ECG When compared with ECG of 06-Jan-2025 23:05, Vent. rate has decreased by 41 bpm Nonspecific T wave abnormality no longer evident in Lateral leads Echo 11/2023 at [facility] Left ventricular size is normal. Left ventricular wall thickness is moderated increased. LVEF 55-65%. No definite regional wall motion abnormalities. Right ventricle mildly dilated. Right ventricular systolic function appears preserved. Right atrium is mildly dilated. CT abd/pelvis 04/04/25 IMPRESSION: 1. Wall thickening of the large intestine is nonspecific and concerning for colitis, including hepatic flexure and distally. 2. Mild adjacent fluid and stranding is nonspecific in the right upper quadrant. Differential considerations include pancreatitis and cholecystitis by CT. 3. Wall thickening of the urinary bladder. 4. Mild worsening bibasilar atelectasis/pneumonitis. Airway Mallampati Class: IV TM Dist: >3cm Neck ROM: Full Loose/Missing/Broken Teeth: No Heart: RRR Lungs: decreased at bases, otherwise clear Assessment and Plan Final Anesthetic Review Family History of Problems with Anesthesia: No History of Problems with Anesthesia: No Documented by User: Stefan Marie MD 04/07/25 13:26 [facility] Past Medical History Medical History Right upper quadrant pain Partial small bowel obstruction BPH (benign prostatic hyperplasia) Hypertension Upper GI bleed SCHULTZ (nonalcoholic steatohepatitis) Erectile dysfunction Chronic hepatitis C virus genotype 1a infection Functional capacity: independent ambulation Surgical History Surgical History History of esophagogastroduodenoscopy (EGD) History of pancreatectomy Hx of splenectomy Social History Social History Household Members: Family Housing: House Are you a primary critical care paramedic to a significant other at home: No Do you presently have visiting nurse or other home services: No Comment: bilateral wrist restraints for airway safety Patient Tobacco Use Status: Former Tobacco user service: Yes Meds Allergies Allergy/AdvReac Type Severity Reaction Status Date / Time No Known Allergies Allergy Verified 04/02/25 15:44 Home Medications ?Medication ?Instructions ?Recorded ?Confirmed ?Last Taken ?Type brinzolamide 1 %-brimonidine 0.2 % 1 drp ophthalmic (eye) BID 01/07/25 04/02/25 04/02/25 History eye drops,suspension (Simbrinza) hydroxyzine HCl 25 mg tablet 25 mg PO BEDTIME PRN Insomnia 01/07/25 04/02/25 Unknown History tadalafil 20 mg tablet 5 mg PO DAILY 01/07/25 04/02/25 04/02/25 History omeprazole 40 mg capsule,delayed 40 mg PO DAILY@0630 04/02/25 04/02/25 04/02/25 History release Exam Exam Date and Time: 04/07/2025 Height,Weight and Vital Signs: Height 6 ft Weight 116.4 kg by glad Last Vital Signs Temp 96.8 F 04/06/25 11:36 Pulse 118 H 04/06/25 11:36 Resp 17 04/06/25 11:36 BP 138/72 04/06/25 11:36 Pulse Ox 93 04/06/25 11:36 O2 Del Method Room Air 04/06/25 11:36 Pertinent Lab Results Pertinent Lab Results: Laboratory Tests 04/02/25 04/03/25 04/03/25 17:21 07:22 14:50 WBC 11.2 H 10.7 RBC 4.67 D 4.71 Hgb 13.3 L D 13.4 L Hct 40.2 L D 41.2 L MCV 86.1 87.5 MCH 28.5 28.5 MCHC 33.1 32.5 RDW 15.1 15.3 Plt Count 264 D 287 MPV 8.6 L 9.4 Immature Gran % (Auto) 0.4 0.2 Neut % (Auto) 77.9 H 78.4 H Lymph % (Auto) 13.2 L 14.1 L [place] % (Auto) 7.4 6.8 Na V o Eos % (Auto) 0.7 0.2 Baso % (Auto) 0.4 0.3 Lymph # (Auto) 1.5 1.5 [place] # (Auto) 0.8 0.7 Eos # (Auto) 0.1 0.0 Baso # (Auto) 0.0 0.0 Abs Immat Gran (auto) 0.04 H 0.02 Absolute Neuts (auto) 8.7 H 8.4 H Absolute Nucleated RBC 0.000 0.000 Nucleated RBC % (auto) 0.0 0.0 Hold Purple Top PT 11.6 INR 1.0 Sodium 141 142 Potassium 4.1 4.2 Chloride 114 H 107 Carbon Dioxide 19 L 25 Anion Gap 12 14 BUN 16 20 H Creatinine 0.94 0.90 Estim Creat Clear Calc 96.8 102.0 Estimated GFR > 60 > 60 Random Glucose 117 H 112 Fasting Glucose Lactic Acid Calcium 8.9 9.1 Magnesium 2.3 Total Bilirubin 0.3 Direct Bilirubin AST 49 H ALT 18 Alkaline Phosphatase 87 Troponin I High Sens < 2.7 Total Protein 7.6 Albumin 4.2 Lipase Urine Color Yellow Urine Appearance Clear Urine pH 5.5 Ur Specific [place] >= 1.030 H Urine Protein Trace Urine Glucose (UA) Negative Urine Ketones Negative Urine Blood Negative Urine Nitrite Negative Ur Leukocyte Esterase Negative Influenza Type A (PCR) NEGATIVE Influenza Type B (PCR) NEGATIVE RSV RNA Qual (PCR) NEGATIVE SARS-CoV-2 RNA (RT-PCR) NEGATIVE 04/04/25 04/04/25 04/05/25 05:26 20:32 08:37 WBC 8.7 13.7 H RBC 4.31 L 4.56 L Hgb 12.3 L 13.1 L Hct 36.7 L 39.4 L MCV 85.2 86.4 MCH 28.5 28.7 MCHC 33.5 33.2 RDW 15.2 15.2 Plt Count 257 198 MPV 9.2 L 10.2 Immature Gran % (Auto) 0.2 Neut % (Auto) 64.7 Lymph % (Auto) 21.5 [place] % (Auto) 12.6 H Eos % (Auto) 0.7 Baso % (Auto) 0.3 Lymph # (Auto) 1.9 [place] # (Auto) 1.1 Eos # (Auto) 0.1 Baso # (Auto) 0.0 Abs Immat Gran (auto) 0.02 Absolute Neuts (auto) 5.6 Absolute Nucleated RBC 0.000 0.000 Nucleated RBC % (auto) 0.0 0.0 Hold Purple Top PT INR Sodium 141 136 Potassium 3.7 3.9 Chloride 105 103 Carbon Dioxide 24 25 Anion Gap 16 12 BUN 17 H 16 Creatinine 0.67 0.79 Estim Creat Clear Calc 137.0 116.2 Estimated GFR > 60 > 60 Random Glucose 94 Fasting Glucose 112 H Lactic Acid Calcium 8.9 9.0 Magnesium Total Bilirubin 0.9 1.3 H Direct Bilirubin 0.5 AST 44 H 58 H ALT 14 14 Alkaline Phosphatase 78 80 Troponin I High Sens Total Protein 7.2 7.6 Albumin 3.9 4.0 Lipase 22 Urine Color Yellow Urine Appearance Clear Urine pH 7.5 Ur Specific [place] >= 1.030 H Urine Protein Negative Urine Glucose (UA) Negative Urine Ketones Negative Urine Blood Negative Urine Nitrite Negative Ur Leukocyte Esterase Negative Influenza Type A (PCR) Influenza Type B (PCR) RSV RNA Qual (PCR) SARS-CoV-2 RNA (RT-PCR) 04/05/25 04/06/25 04/06/25 21:13 05:45 05:45 WBC 16.3 H RBC 4.29 L Hgb 12.2 L Hct 36.8 L MCV 85.8 MCH 28.4 MCHC 33.2 RDW 15.3 Plt Count 228 MPV 9.9 Immature Gran % (Auto) 0.7 H Neut % (Auto) 82.6 H Lymph % (Auto) 7.4 L [place] % (Auto) 9.0 Eos % (Auto) 0.1 Baso % (Auto) 0.2 Lymph # (Auto) 1.2 [place] # (Auto) 1.5 H Eos # (Auto) 0.0 Baso # (Auto) 0.0 Abs Immat Gran (auto) 0.11 H Absolute Neuts (auto) 13.4 H Absolute Nucleated RBC 0.000 Nucleated RBC % (auto) 0.0 Hold Purple Top SEE NOTE PT INR Sodium 134 L Potassium 4.0 Chloride 103 Carbon Dioxide 21 L Anion Gap 14 BUN 18 H Creatinine 0.95 Estim Creat Clear Calc 96.6 Estimated GFR > 60 Random Glucose 102 Fasting Glucose Lactic Acid 0.7 Calcium 8.7 Magnesium Total Bilirubin 1.5 H 1.5 H Direct Bilirubin 0.8 H AST 52 H ALT Alkaline Phosphatase Troponin I High Sens Total Protein Albumin Lipase Urine Color Urine Appearance Urine pH Ur Specific [place] Urine Protein Urine Glucose (UA) Urine Ketones Urine Blood Urine Nitrite Ur Leukocyte Esterase Influenza Type A (PCR) Influenza Type B (PCR) RSV RNA Qual (PCR) SARS-CoV-2 RNA (RT-PCR) 04/06/25 04/06/25 04/06/25 05:45 05:45 05:45 WBC RBC Hgb Hct MCV MCH MCHC RDW Plt Count MPV Immature Gran % (Auto) Neut % (Auto) Lymph % (Auto) [place] % (Auto) Eos % (Auto) Baso % (Auto) Lymph # (Auto) [place] # (Auto) Eos # (Auto) Baso # (Auto) Abs Immat Gran (auto) Absolute Neuts (auto) Absolute Nucleated RBC Nucleated RBC % (auto) Hold Purple Top PT INR Sodium Potassium Chloride Carbon Dioxide Anion Gap BUN Creatinine Estim Creat Clear Calc Estimated GFR Random Glucose Fasting Glucose Lactic Acid Calcium Magnesium Total Bilirubin Direct Bilirubin AST 51 H ALT 12 13 Alkaline Phosphatase 78 89 Troponin I High Sens Total Protein 6.8 Albumin Lipase Urine Color Urine Appearance Urine pH Ur Specific [place] Urine Protein Urine Glucose (UA) Urine Ketones Urine Blood Urine Nitrite Ur Leukocyte Esterase Influenza Type A (PCR) Influenza Type B (PCR) RSV RNA Qual (PCR) SARS-CoV-2 RNA (RT-PCR) 04/06/25 04/06/25 05:45 05:45 WBC RBC Hgb Hct MCV MCH MCHC RDW Plt Count MPV Immature Gran % (Auto) Neut % (Auto) Lymph % (Auto) [place] % (Auto) Eos % (Auto) Baso % (Auto) Lymph # (Auto) [place] # (Auto) Eos # (Auto) Baso # (Auto) Abs Immat Gran (auto) Absolute Neuts (auto) Absolute Nucleated RBC Nucleated RBC % (auto) Hold Purple Top PT INR Sodium Potassium Chloride Carbon Dioxide Anion Gap BUN Creatinine Estim Creat Clear Calc Estimated GFR Random Glucose Fasting Glucose Lactic Acid Calcium Magnesium Total Bilirubin Direct Bilirubin AST ALT Alkaline Phosphatase Troponin I High Sens Total Protein 6.9 Albumin 3.6 3.6 Lipase Urine Color Urine Appearance Urine pH Ur Specific [place] Urine Protein Urine Glucose (UA) Urine Ketones Urine Blood Urine Nitrite Ur Leukocyte Esterase Influenza Type A (PCR) Influenza Type B (PCR) RSV RNA Qual (PCR) SARS-CoV-2 RNA (RT-PCR) Airway Mallampati Class: III Assessment and Plan Final Anesthetic Review NPO: Yes ASA Class: III Final Preanesthetic Review: No Changes in Pt Med Stat, Meds/Allgs Chart Reviewed, Consent Obtained/Reviewed and Anes Risks/Benef Reviewed Patient Risk: Low Procedure Risk: Low Anesthetic Plan Anesthetic Plan: GA and MAC: Disposition: Standard PACU and Extended PACU
[2025-04-06] MEDS: vancomycin/NS 2,000 MG/500 ML PLAST..BAG 250 MG IV (12:37)
--- NOTE | 2025-04-06 12:55 | PHA.PROG ---
Admission Date/Time: April 02, 2025 20:14 Indication: Other? Weight in k.4 kg Serum Creatinine - Last 168 Hours 04/02/25 04/03/25 04/04/25 17:21 07:22 05:26 Creatinine 0.94 0.90 0.67 04/05/25 04/06/25 08:37 05:45 Creatinine 0.79 0.95 Estimated CrCl and GFR - Last 168 Hours 04/02/25 04/03/25 04/04/25 17:21 07:22 05:26 Estim Creat Clear Calc 96.8 102.0 137.0 Estimated GFR > 60 > 60 > 60 04/05/25 04/06/25 08:37 05:45 Estim Creat Clear Calc 116.2 96.6 Estimated GFR > 60 > 60 Vancomycin Loading Dose: 2,000 mg Current Vancomycin Dosing Regimen: 1,000mg q12h Vancomycin Monitoring using AUC goal of 400 - 600 range with trough as surrogate marker: 444, predicted trough: 14.7 Date and Time for next Vancomycin Level to be drawn: 04/07 @ 2100 Pharmacist Comments on Vancomycin Plan: Vancomycin dosing will take advantage of [employer]APR as a clinical decision support tool that uses Bayesian modeling to calculate individual patient's pharmacokinetic parameters and forecast the patient's drug concentration time course with the target goal AUC 24 range of 400 - 600 mg/L/hr.
--- NOTE | 2025-04-06 13:29 | PC.NURSE ---
Approximately 0745: YRIS York notified of patient's heart rate sustaining in the 120's. Patient was sinus tach on tele monitor. Patient asymptomatic upon assessment. BP 150/73. Patient reporting severe pain and discomfort. Plan to administer morning medications, treat pain, and re-assess. See MAR for details. Approximately 0930: Upon re-assessment, patient's heart rate remained elevated between 115 and 120. Patient reported +effect from PRN pain medications. Patient continued to be asymptomatic. YRIS York notified with no new orders placed. 1045: Discussed patient status with YRIS York due to patient's continued tachycardia. IV fluid rate increased and IV Vancomycin ordered.
--- NOTE | 2025-04-06 13:42 | PC.NURSE ---
Approximately 1330- patient transported to nuclear medicine department for HIDA scan. IV fluids and Vancomycin infusing at ordered rates. Tele monitor removed temporarily for scan- okayed by YRIS York.
[2025-04-06] MEDS: Lactated Ringers 1,000 ML 125 ML IVCONT (16:18)
[2025-04-07] VITALS (13 sets, daily range): BP systolic 120–172; BP diastolic 65–86; PULSE 87–121; RESP 14–24; TEMP 36.2–38.1; O2SAT 92–98
[2025-04-07] MEDS: Lactated Ringers 1,000 ML 125 ML IVCONT ×3 (00:12→18:02)
[2025-04-07] MEDS: oxyCODONE HCl Immed Release 5 MG TABLET 10 MG PO ×2 (04:10→08:41)
[2025-04-07 07:47] LABS: Alanine Aminotransferase 12 U/L (0-40); Albumin Level 3.3 g/dL (3.5-5.0); Alkaline Phosphatase 85 U/L (39-117); Anion Gap 12 (12-20); Aspartate Amino Transferase 51 U/L (5-37); Blood Urea Nitrogen 15 mg/dL (9-16); Calcium 8.5 mg/dL (8.4-10.2); Carbon Dioxide 24 mmol/L (22-29); Chloride 103 mmol/L (96-108); Creatinine Clr Calc Pharmacy 113.3; Estimated Glomerular Filt Rate > 60; Potassium 3.7 mmol/L (3.3-5.1); Sodium 135 mmol/L (135-145); Total Protein 6.5 g/dL (6.5-8.0)
[2025-04-07 07:50] LABS: Hematocrit 33.9 % (42.0-52.0); Hemoglobin 11.1 g/dl (14.0-18.0); Mean Corpuscular HGB Conc 32.7 g/dl (31.0-36.0); Mean Corpuscular Hemoglobin 28.5 pg (27.0-33.0); Mean Corpuscular Volume 86.9 fL (80.0-98.0); NRBC Abs Auto 0.000 X10*3/uL (0.0-0.012); NRBC Pct Auto 0.0 /100WBC (0.0-0.2); Platelet Count 226 X10*3/uL (160-400); Red Blood Count 3.90 X10*6/uL (4.60-5.80); White Blood Count 17.6 X10*3/uL (4.8-10.8)
--- NOTE | 2025-04-07 08:12 | P.PNGS_ITS ---
Subjective Subjective Date of Service: 04/07/25 <Carlos Navas MD - Last Filed: 04/07/25 15:38> 04/07/25 <Juan Burkett PA-C - Last Filed: 04/07/25 08:49> Interval history: He says he is nervous Very anxious about surgery Admits to pain but says that this has much improved No nausea or vomiting <Cralos Navas MD - Last Filed: 04/07/25 15:38> He says he is nervous Very anxious about surgery Admits to pain but says that this has much improved No nausea or vomiting pain improving, denies n/v, states he has been passing a lot of gas, does not feel bloated <Juan Burkett PA-C - Last Filed: 04/07/25 08:49> Physical Exam 2 Vital Signs: Vital Signs: Last Vital Signs Temp 99.6 F 04/07/25 08:00 Pulse 121 H 04/07/25 08:00 Resp 18 04/07/25 08:00 BP 164/76 H 04/07/25 08:00 Pulse Ox 98 04/07/25 08:00 O2 Del Method Nasal Cannula 04/07/25 08:00 O2 Flow Rate 2 04/07/25 08:00 BMI result Body Mass Index 34.8 <Carlos Navas MD - Last Filed: 04/07/25 15:38> Const: Other: Appears anxious <Carlos Navas MD - Last Filed: 04/07/25 15:38> General: comfortable and no acute distress <Carlos Navas MD - Last Filed: 04/07/25 15:38> Orientation/consciousness: patient oriented x3 <DENVER Hanley Last Filed: 04/07/25 08:49> Resp: Effort & Inspection: normal respiratory effort <Carlos Navas MD - Last Filed: 04/07/25 15:38> Cardio: Rate: tachycardic <Carlos Navas MD - Last Filed: 04/07/25 15:38> GI: Palpation (GI): Soft to palpation, not firm, Tenderness to palpation present (GI) (Mild tenderness right upper quadrant) and no guarding <MD Radha Gomez Last Filed: 04/07/25 15:38> Neuro: General: patient oriented x3 <DENVER Hanley Last Filed: 04/07/25 08:49> Objective Data Active Medications Acetaminophen (Acetaminophen 325 Mg Tablet) 650 mg PO Q6H PRN PRN Reason: Pain, Mild 1-3,fever,headache Last Admin: 04/05/25 20:30 Dose: 650 mg Documented By: OLENA Amlodipine Besylate (Amlodipine Besylate 10 Mg Tablet) 10 mg PO DAILY [facility]; Protocol Last Admin: 04/06/25 08:12 Dose: 10 mg Documented By: ABDIEL Benzocaine (Throat Lozenge, Medicated Lozenge) 1 lozenge MUCOUS MEM Q2H PRN PRN Reason: Sore Throat Last Admin: 04/03/25 21:44 Dose: 1 lozenge Documented By: CAM Brimonidine Tartrate (Brimonidine Tartrate 0.2% Oph 5 Ml Bottle) 1 drop EYE- BOTH BID [facility] Last Admin: 04/06/25 20:09 Dose: 1 drop Documented By: ANDRESSA Diazepam (Diazepam 10 Mg/2 Ml Cartridge) 10 mg IVPUSH Q4H PRN PRN Reason: Anxiety Dorzolamide HCl (Dorzolamide Hcl 2 % Ophth Aminah 10 Ml Drpbtl) 1 drop EYE-BOTH BID [facility] Last Admin: 04/06/25 20:11 Dose: 1 drop Documented By: ANDRESSA Ferrous Sulfate (Ferrous Sulfate 324 Mg Tablet.Dr) 324 mg PO DAILY [facility] Last Admin: 04/06/25 08:12 Dose: 324 mg Documented By: ABDIEL Finasteride (Finasteride 5 Mg Tablet) 5 mg PO DAILY [facility] Last Admin: 04/06/25 08:12 Dose: 5 mg Documented By: ABDIEL Heparin Sodium (Porcine) (Heparin Sodium,Porcine 5,000 Unit/Ml Vial) 5,000 unit SUBCUT Q12H [facility] Last Admin: 04/06/25 22:14 Dose: 5,000 unit Documented By: ANDRESSA Hydralazine HCl (Hydralazine Hcl 20 Mg/Ml Vial) 10 mg IVPUSH Q6H PRN; Protocol PRN Reason: SBP > 160 Last Admin: 04/04/25 13:46 Dose: 10 mg Documented By: DENIA Hydromorphone HCl (Hydromorphone Hcl 1 Mg/Ml Syringe) 1 mg IVPUSH Q3H PRN; Protocol PRN Reason: Pain, Severe (Pain Scale 7-10) Last Admin: 04/06/25 20:06 Dose: 1 mg Documented By: ANDRESSA Hydroxyzine HCl (Hydroxyzine Hcl 25 Mg Tablet) 25 mg PO BEDTIME PRN PRN Reason: Insomnia Lactated Ringer's (Lr) 1,000 mls @ 125 mls/hr IVCONT .Q8H [facility] Last Admin: 04/07/25 00:12 Dose: 125 mls/hr Documented By: ANDRESSA Vancomycin HCl 1,000 mg/ (Sodium Chloride) 270 mls @ 270 mls/hr IV Q12H [facility] Last Infusion: 04/07/25 00:11 Dose: Infused Documented By: ANDRESSA Piperacillin Sod/Tazobactam (Sod 3.375 gm/ Sodium Chloride) 50 mls @ 100 mls/hr IV Q6H [facility] Last Infusion: 04/07/25 04:47 Dose: Infused Documented By: ANDRESSA Lisinopril (Lisinopril 20 Mg Tablet) 20 mg PO DAILY [facility]; Protocol Last Admin: 04/06/25 08:12 Dose: 20 mg Documented By: ABDIEL Melatonin (Melatonin 3 Mg Tablet) 6 mg PO BEDTIME PRN PRN Reason: Insomnia Metoprolol Succinate (Metoprolol Succinate Er 50 Mg Tab.Er.24h) 50 mg PO DAILY [facility]; Protocol Last Admin: 04/06/25 08:12 Dose: 50 mg Documented By: ABDIEL Non-Formulary Medication (Tadalafil) 5 mg PO DAILY [facility] Omeprazole (Omeprazole 40 Mg Capsule.Dr) 40 mg PO DAILY@0630 [facility] Last Admin: 04/07/25 05:46 Dose: Not Given Documented By: ANDRESSA Non-Admin Reason: NPO Ondansetron HCl (Ondansetron Hcl 4 Mg/2 Ml Vial) 4 mg IVPUSH Q8H PRN PRN Reason: Nausea and Vomiting Oxycodone HCl (Oxycodone Hcl Immed Release 5 Mg Tablet) 10 mg PO Q4H PRN PRN Reason: Pain, Moderate(Pain Scale 4-6) Last Admin: 04/07/25 04:10 Dose: 10 mg Documented By: GONZALO Pharmacy Consult (Consult Rx Vancomycin Dosing) 1 each MISCELLANE DAILY PRN PRN Reason: Consult order Sodium Chloride (0.9 % Sodium Chloride Flush 3 Ml Syringe) 3 ml IVFLUSH QSHIFT [facility] Last Admin: 04/07/25 01:27 Dose: Not Given Documented By: ANDRESSA Non-Admin Reason: IV Running Tamsulosin HCl (Tamsulosin Hcl 0.4 Mg Capsule) 0.4 mg PO BEDTIME [facility] Last Admin: 04/06/25 20:08 Dose: 0.4 mg Documented By: ANDRESSA <Carlos Navas MD - Last Filed: 04/07/25 15:38> Labs CBC & Chem 7: 04/07/25 07:21 04/07/25 07:21 <Carlos Navas MD - Last Filed: 04/07/25 15:38> Labs: Laboratory Results - last 24 hr 04/07/25 07:21 MCV 86.9 MCH 28.5 MCHC 32.7 RDW 15.4 Plt Count 226 MPV 9.9 Absolute Nucleated RBC 0.000 Nucleated RBC % (auto) 0.0 Anion Gap 12 Estim Creat Clear Calc 113.3 Estimated GFR > 60 Random Glucose 98 Calcium 8.5 Total Bilirubin 1.6 H AST 51 H ALT 12 Alkaline Phosphatase 85 Total Protein 6.5 Albumin 3.3 L Blood Type O Positive Antibody Screen NEGATIVE <Carlos Navas MD - Last Filed: 04/07/25 15:38> Microbiology Microbiology Results: Microbiology 04/05/25 21:13 Blood Culture - Preliminary Blood - Venous No growth after 24 hours. 04/05/25 21:13 Blood Culture - Preliminary Blood - Venous No growth after 24 hours. <Carlos Navas MD - Last Filed: 04/07/25 15:38> Procedures Date of Service Date of Service: 04/07/25 <Carlos Navas MD - Last Filed: 04/07/25 15:38> 04/07/25 <Juan Burkett PA-C - Last Filed: 04/07/25 08:49> Progress Note: A&P Assessment and plan (1) Right upper quadrant pain: Status: Acute <Carlos Navas MD - Last Filed: 04/07/25 15:38> Assessment and Plan: He was actually admitted for small bowel obstruction Symptoms have resolved He developed right upper quadrant pain in the hospital Imaging studies showed contracted gallbladder although with a stone so HIDA scan was done HIDA scan shows nonvisualizing gallbladder suggestive of acute cholecystitis Did that he did not want to proceed with a another surgery He wanted to be managed with antibiotics He continued to have some pain however and he had been discussing this with his daughter who talked to him about proceeding with surgery He now wants to proceed with cholecystectomy as an inpatient as he had a previous episode last year I had a long discussion with the above about the technique of laparoscopic cholecystectomy and open cholecystectomy I reviewed the risks including but not limited to bleeding, infections, injury to other organs including surrounding bowel, liver and the bile ducts, bile leak, need for drain He understands that this I risk of conversion to open in view of his previous abdominal surgery mildly elevated LFTs likely secondary to cholecystitis; no evidence of CBD obstruction on imaging He has given consent I have discussed the above with his daughter Maria De Jesus <Carlos Navas MD - Last Filed: 04/07/25 15:38> Assessment and Plan: patient doing well today, SBO seems resolved, patient passing lots of gas. Has continued RUQ pain. His abdominal exam is soft, tender in the RUQ. He will have lap richie possible open this afternoon. He is on scheduled zosyn. <Juan Burkett PA-C - Last Filed: 04/07/25 08:49> Time Spent With Patient Time: Total time managing care of this patient today ____ minutes. <Carlos Navas MD - Last Filed: 04/07/25 15:38> Quality Stroke Does the patient have a stroke diagnosis?: No <Carlos Navas MD - Last Filed: 04/07/25 15:38> VTE Prior VTE?: No <Carlos Navas MD - Last Filed: 04/07/25 15:38> VTE Risk Level:: Medical - moderate - high <Carlos Navas MD - Last Filed: 04/07/25 15:38> VTE Device Contraindication: N/A - Device Ordered <Carlos Navas MD - Last Filed: 04/07/25 15:38> VTE Drug Contraindication: N/A - Med Ordered <Carlos Navas MD - Last Filed: 04/07/25 15:38>
[2025-04-07] MEDS: Ferrous Sulfate 324 MG TABLET.DR PO (08:40)
[2025-04-07] MEDS: Metoprolol Succinate ER 50 MG TAB.ER.24H PO (08:40)
[2025-04-07] MEDS: Brimonidine Tartrate 0.2% Oph 5 ML BOTTLE 1 DROP EYE-BOTH ×2 (11:11→22:10)
[2025-04-07] MEDS: Dorzolamide HCl 2 % Ophth Sol 10 ML DRPBTL 1 DROP EYE-BOTH ×2 (11:11→22:10)
--- NOTE | 2025-04-07 11:34 | P.CDIM_ITS ---
PROVIDER RESPONSE TEXT: To clarify, the appropriate diagnosis supported by the clinical indicators: Other (explain): clinically not septic QUERY TEXT: PHYSICIAN'S DOCUMENTATION REQUEST Date of Query: 04/07/2025 10:57 AM EDT Patient Name: Ranch[place] Baeza Admit Date: 04/03/2025 Dear Carlos Navas MD, A review of the medical record indicates additional documentation may be needed. Please review below and update the documentation accordingly. Clinical indicators: Surgery notes: Admitted for Small bowel obstruction. Inflammatory changes surrounding the area of the hepatic flexure. Assessment and Plan progress note dated 04/06/25 - Febrile and tachycardic overnight. WBC now up to 16. Remain very tender in RUQ. Temp: 101.3 HR 120 RR 22 WBC 16.3 IV Vancomycin and Zosyn Please clarify which of the following most accurately describes the above abnormalities: Sepsis Please indicate the etiology (i.e. organism) and/or underlying infection if known SIRS due to a non-infectious source Please indicate the etiology (i.e. organism) if known SIRS due to infectious process without sepsis Other specified etiology of findings Other (explain) Clinically unable to determine (explain) Thank you, Victoria Gomez, CCS, CDIS Use of terms such as suspected, likely, concern for, or probable (associated with a specific diagnosis that is being evaluated, monitored, or treated as if it exists) are acceptable and can be coded in the inpatient setting, when documented at the time of discharge. Please use your independent medical judgment in providing your response. THIS QUERY IS PART OF THE PERMANENT MEDICAL RECORD
--- NOTE | 2025-04-07 13:51 | MHC.CM.PN ---
EMR REVIEWED. PT MAY HAVE LAP BRIDGETTE TODAY PER SURGERY. CM WILL CONTINUE TO FOLLOW FOR ANY CHANGE TO DC PLAN.
--- NOTE | 2025-04-07 15:40 | W.PM.OPN ---
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 This had resolved but on Saturday night, he started to have right upper quadrant pain with a CAT scan showing some inflammatory changes in the right upper quadrant. The gallbladder appeared contracted on the ultrasound so I sent him for a HIDA scan which showed a nonvisualizing gallbladder consistent with the acute cholecystitis . He initially did not want to have any surgery anymore because of his previous distal pancreatectomy with a prolonged recovery course requiring multiple hospital stays. However, after discussing with his daughter, along with some persistent pain, he decided to proceed. He understood the technique of the planned procedure as was the risks, benefits, and alternatives. He was brought to the operating room. He was placed supine under general anesthesia via endotracheal tube. The abdomen was prepped and draped in the usual sterile fashion. A surgical time-out was done. The patient was on scheduled IV antibiotics I made a short supraumbilical incision with a blade 15. This was carried down through the full-thickness of the skin I subcutaneous fat. The fascia was exposed. The fascia was incised. The peritoneum was entered. I proceeded to probe the underside of the fascia with my finger gently. There was note of dense adhesions of omentum. I could not feel any opening in the area and direct visualization with the fascia retracted showed a lot of omentum adherent to the surrounding fascia. I therefore decided to proceed with open cholecystectomy at this time in view of these adhesions I made my subcostal incision in the right side generously with a blade 15. This carried down with electrocautery through the full-thickness of the skin and thick subcutaneous fat. I incised the anterior rectus sheath with electrocautery. I divided the rectus muscle all the way laterally using electrocautery to expose the posterior sheath. I opened up the posterior sheath and extended this incision to optimize the length of the skin incision. The peritoneum was therefore entered There was note of a lot of adherent omentum surrounding the area. We could not initially visualize the gallbladder nor the liver because of these adhesions. I had to do careful lysis of adhesions we electrocautery as well as Metzenbaum scissors. Eventually was able to see the liver edge. Again, there was note of a lot of densely adherent omentum. I palpated the area and I seemed to feel the gallbladder. I gently thinned out the overlying omentum with electrocautery using the right angle clamp layer by layer until was able to visualize the fundus of the gallbladder. I continued to do gentle dissection of the surrounding fat around the gallbladder until was able to expose the anterior wall as well. The gallbladder was visualized adequately and this appeared to be very contracted but with note of severe of severe inflammatory changes, thickened wall, poor planes and chronic inflammatory changes as well there was note of a small pus pocket on the dome which we cultured I applied a Lore clamp on the wall of the gallbladder to retract this away from the liver edge. I proceeded to gently see if we can identify any plane of dissection on the very thick, inflamed gallbladder wall. I used the electrocautery initially and the right angle clamp to see if we can develop a plane on the thick gallbladder wall. We tried with this form of dissection. However, it did not appear that there was any discernible plane at all on the very inflamed gallbladder. I proceeded to clear out the rest of the gallbladder with gentle dissection using the peanut dissector as well as the tip of the suction plant operator helper. At this point, we had positioned the Bookwalter retractor in and applied the retractors to reflect bowel loops away from the sub hepatic space. With careful, gentle dissection, I felt that we could see the neck of the gallbladder. However, there were no identifiable planes so at this point, in view of the risk of causing injury common bile duct and portal vessels, as there was significant interrupted changes distal to the neck, I decided to do a subtotal cholecystectomy I applied a retractor on the anterior wall. I carefully divided the wall of the gallbladder for off of the liver bed with electrocautery. I excised as much of the wall as possible down to the neck. We had to apply electrocautery on the divided wall periodically because of significant bleeding. I ligated 1 area on the wall which appeared to be the cystic duct are its branch using a Polysorb 2-0 tie I was able to go down to the neck of the gallbladder and completed transection of as much of the wall as possible. I probed the neck as well as the area distally and I could not feel any retained stone we examined the neck directly through the expose lumen and there was no identifiable stone in this area I I cauterized the remaining mucosa. I applied a right angle clamp on this stump of the wall and divided this above the stump. I ligated the stump of the wall of the gallbladder with a Polysorb 2-0 tie to achieve hemostasis We left the lumen open of the neck. This was therefore a subtotal fenestrating cholecystectomy Once hemostasis confirmed, I proceeded to irrigate copiously I positioned a #10 BRIDGER drain at the subhepatic space along the gallbladder remnant. This was brought out through an exit site in the left upper quadrant below the cholecystectomy incision a small stab incision. This was secured to the skin with nylon 3-0 sutures Once hemostasis was again confirmed, I proceeded to then remove all the retractors. I then closed the posterior sheath with a running Polysorb 2-0 stitch. I closed the anterior sheath with a running Maxon 1 stitch I irrigated the subcutaneous layer. I closed the fascia of the umbilical incision with a [id number] Polysorb 0 stitch Skin closure was achieved on all incisions with skin elieser. All incisions were infiltrated with Marcaine 0.5% for postop analgesia. Dressings were applied and the procedure was completed The BRIDGER drain was hooked up to bulb suction The patient tolerated the procedure well. There were no immediate complications. Initial and final counts of sponges and instruments were correct. Estimated blood loss was about 75 cc The patient was extubated without difficulty and transferred to the recovery room with stable vital signs
--- NOTE | 2025-04-07 17:14 | PM.EVENT ---
Event Note Date of Service: 04/07/25 Event Note: Seen postop Underwent open cholecystectomy earlier for severely inflamed gallbladder, contracted, with poor planes marked adhesions Initially very drowsy in the PACU, now waking up Able to do spirometry Seems to have adequate pain control BRIDGER drain scanty thick old blood Stable vital signs Pain management Continue antibiotics Incentive spirometry Daughter updated Time Spent With Patient Time: Total time managing care of this patient today ____ minutes.
--- NOTE | 2025-04-07 19:00 | PC.NURSE ---
no tele packs available at this time. Will continue to look for one, supervisor farm equipment maintenance Mila made aware to be on look for tele pack.
[2025-04-07] MEDS: diazePAM 10 MG/2 ML CARTRIDGE IVPUSH (23:17)
[2025-04-07] MEDS: 0.9 % Sodium Chloride Flush 3 ML SYRINGE IVFLUSH (23:20)
[2025-04-08] VITALS (9 sets, daily range): BP systolic 123–150; BP diastolic 64–87; PULSE 80–99; RESP 12–18; TEMP 35.8–36.9; O2SAT 92–96
[2025-04-08] MEDS: Lactated Ringers 1,000 ML 125 ML IVCONT (03:53)
[2025-04-08] MEDS: oxyCODONE HCl Immed Release 5 MG TABLET 10 MG PO ×3 (06:03→21:16)
[2025-04-08 06:17] LABS: MANUAL DIFF FLAG NO
[2025-04-08 06:45] LABS: Alanine Aminotransferase 15 U/L (0-40); Albumin Level 3.3 g/dL (3.5-5.0); Alkaline Phosphatase 98 U/L (39-117); Anion Gap 12 (12-20); Aspartate Amino Transferase 62 U/L (5-37); Blood Urea Nitrogen 20 mg/dL (9-16); Calcium 8.6 mg/dL (8.4-10.2); Carbon Dioxide 23 mmol/L (22-29); Chloride 105 mmol/L (96-108); Creatinine Clr Calc Pharmacy 106.5; Estimated Glomerular Filt Rate > 60; Potassium 4.4 mmol/L (3.3-5.1); Sodium 136 mmol/L (135-145); Total Protein 6.8 g/dL (6.5-8.0)
--- NOTE | 2025-04-08 06:46 | PM.PNGS ---
Subjective Subjective Date of Service: 04/08/25 <Sarahi Hussein - Last Filed: 04/08/25 07:07> 04/08/25 <Carlos Navas MD - Last Filed: 04/08/25 17:06> 04/08/25 <Juan Burkett PA-C - Last Filed: 04/08/25 11:52> Interval history: The patient is s 70-year-old male POD1 s/p attempted laparoscopic cholecystectomy, converted to open partial fenestrating cholecystectomy secondary to acute cholecystitis with abscess. Upon entering the room he appears to be resting somewhat comfortably but is in 9/10 pain which he describes as sharp in his RUQ. He has been receiving Dilaudid for pain control which he states brings his pain to about a 7/10. He denies fever, chills, nausea, or vomiting. He is afebrile today, was febrile during the operation yesterday. He has been using his spirometry hourly. He is able to ambulate without difficulty to the bathroom. He says that he has mild dysuria while urinating. His preliminary culture of the abscess showed 2+ gram negative rods. His BRIDGER drain had recently been changed, but there was a small amount of blood in the drain pouch. Dressings are dry and in place. He is interested in introducing solids into his diet today. <Sarahi Hussein - Last Filed: 04/08/25 07:07> Physical Exam Vital Signs: Vital Signs: Last Vital Signs Temp 96.9 F 04/08/25 05:29 Pulse 84 04/08/25 05:29 Resp 18 04/08/25 05:29 BP 137/87 04/08/25 05:29 Pulse Ox 96 04/08/25 05:29 O2 Del Method Nasal Cannula 04/08/25 05:29 O2 Flow Rate 2 04/08/25 05:29 BMI result Body Mass Index 34.8 <Sarahi Hussein - Last Filed: 04/08/25 07:07> Const: General: cooperative, comfortable (somewhat), no acute distress, alert and tired appearing; No ill appearing <Sarahi Garcia Last Filed: 04/08/25 07:07> Nutritional Appearance: obese <Sarahi Hussein - Last Filed: 04/08/25 07:07> Orientation/consciousness: patient oriented x3 <Sarahi Hussein - Last Filed: 04/08/25 07:07> Resp: Effort & Inspection: normal respiratory effort and able to speak in complete sentences <Sarahi Hussein Last Filed: 04/08/25 07:07> Cardio: Rate: regular rate <Sarahi Hussein Last Filed: 04/08/25 07:07> Rhythm: regular rhythm <Sarahi Hussein Last Filed: 04/08/25 07:07> Heart sounds: S1 normal heart sound present and S2 normal heart sound present <Sarahi Hussein - Last Filed: 04/08/25 07:07> GI: Other: BRIDGER tube in place <Sarahichintan Hussein Last Filed: 04/08/25 07:07> Other: BRIDGER tube in place, less than 25 cc 75 overnight. Seroanguineous. non billious <Juan Burkett PA-C - Last Filed: 04/08/25 11:52> Inspection: Yes distended and Yes obesity <Sarahichintan Hussein Last Filed: 04/08/25 07:07> Palpation (GI): Firmness to palpation present (GI) and Tenderness to palpation present (GI) in the RLQ <Sarahi Hussein Last Filed: 04/08/25 07:07> Percussion: Yes tympanic to percussion (slight) <Sarahichintan Hussein Last Filed: 04/08/25 07:07> Auscultation: normoactive bowel sounds <Sarahi Hussein Last Filed: 04/08/25 07:07> Skin: Other: Dressings dry and in place. No purulent drainage or discharge on external dressing. Did not take dressing off to visualize incision. Skin around the dressing was warm and dry to the touch. No erythema appreciated. <Sarahi Hussein Last Filed: 04/08/25 07:07> Neuro: General: patient oriented x3 <Sarahi Hussein Last Filed: 04/08/25 07:07> Objective Data Active Medications Amlodipine Besylate (Amlodipine Besylate 10 Mg Tablet) 10 mg PO DAILY [facility]; Protocol Last Admin: 04/07/25 08:40 Dose: 10 mg Documented By: ITALO Benzocaine (Throat Lozenge, Medicated Lozenge) 1 lozenge MUCOUS MEM Q2H PRN PRN Reason: Sore Throat Last Admin: 04/03/25 21:44 Dose: 1 lozenge Documented By: CAM Brimonidine Tartrate (Brimonidine Tartrate 0.2% Oph 5 Ml Bottle) 1 drop EYE-BOTH BID [facility] Last Admin: 04/07/25 22:10 Dose: 1 drop Documented By: INDIRA Calcium Carbonate (Calcium Carbonate 750 Mg Tab.Chew) 750 mg PO Q4H PRN PRN Reason: Heartburn Diazepam (Diazepam 10 Mg/2 Ml Cartridge) 10 mg IVPUSH Q4H PRN PRN Reason: Anxiety Last Admin: 04/07/25 23:17 Dose: 10 mg Documented By: INDIRA Dorzolamide HCl (Dorzolamide Hcl 2 % Ophth Aminah 10 Ml Drpbtl) 1 drop [facility]-BOTH BID [facility] Last Admin: 04/07/25 22:10 Dose: 1 drop Documented By: INDIRA Ferrous Sulfate (Ferrous Sulfate 324 Mg Tablet.Dr) 324 mg PO DAILY [facility] Last Admin: 04/07/25 08:40 Dose: 324 mg Documented By: ITALO Finasteride (Finasteride 5 Mg Tablet) 5 mg PO DAILY [facility] Last Admin: 04/07/25 08:40 Dose: 5 mg Documented By: ITALO Heparin Sodium (Porcine) (Heparin Sodium,Porcine 5,000 Unit/Ml Vial) 5,000 unit SUBCUT Q12H [facility] Hydralazine HCl (Hydralazine Hcl 20 Mg/Ml Vial) 10 mg IVPUSH Q6H PRN; Protocol PRN Reason: SBP > 160 Last Admin: 04/04/25 13:46 Dose: 10 mg Documented By: DENIA Hydromorphone HCl (Hydromorphone Hcl 1 Mg/Ml Syringe) 1 mg IVPUSH Q3H PRN; Protocol PRN Reason: Pain, Severe (Pain Scale 7-10) Last Admin: 04/08/25 03:55 Dose: 1 mg Documented By: INDIRA Hydroxyzine HCl (Hydroxyzine Hcl 25 Mg Tablet) 25 mg PO BEDTIME PRN PRN Reason: Insomnia Lactated Ringer's (Lr) 1,000 mls @ 80 mls/hr IVCONT .[id number] [facility] Last Admin: 04/08/25 03:53 Dose: 125 mls/hr Documented By: INDIRA Piperacillin Sod/Tazobactam (Sod 3.375 gm/ Sodium Chloride) 50 mls @ 100 mls/hr IV Q6H [facility] Last Infusion: 04/08/25 04:44 Dose: Infused Documented By: INDIRA Lactated Ringer's (Lr) 500 mls @ 20 mls/hr IVCONT .Q24H [facility] Last Admin: 04/07/25 17:58 Dose: Not Given Documented By: ITALO Non-Admin Reason: off floor surgery Acetaminophen (Ofirmev) 1,000 mg in 100 mls @ 400 mls/hr IV Q6H [facility] Last Infusion: 04/08/25 04:04 Dose: Infused Documented By: INDIRA Vancomycin HCl 1,500 mg/ (Sodium Chloride) 500 mls @ 333.333 mls/hr IV Q12H [facility] Last Infusion: 04/08/25 00:50 Dose: Infused Documented By: INDIRA Lisinopril (Lisinopril 20 Mg Tablet) 20 mg PO DAILY [facility]; Protocol Last Admin: 04/07/25 08:40 Dose: 20 mg Documented By: ITALO Magnesium Hydroxide (Milk Of Magnesia 30 Ml Oral.Susp) 30 ml PO DAILY PRN PRN Reason: Constipation Melatonin (Melatonin 3 Mg Tablet) 6 mg PO BEDTIME PRN PRN Reason: Insomnia Melatonin (Melatonin 3 Mg Tablet) 6 mg PO BEDTIME PRN PRN Reason: Insomnia Metoprolol Succinate (Metoprolol Succinate Er 50 Mg Tab.Er.24h) 50 mg PO DAILY [facility]; Protocol Last Admin: 04/07/25 08:40 Dose: 50 mg Documented By: ITALO Naloxone HCl (Naloxone Hcl 0.4 Mg/Ml Vial) 0.04 mg IVPUSH Q5M PRN PRN Reason: Excessive sedation or RR < 8 Naloxone HCl (Naloxone Hcl 0.4 Mg/Ml Vial) 0.04 mg IVPUSH Q5M PRN PRN Reason: Excessive sedation or RR < 8 Non-Formulary Medication (Tadalafil) 5 mg PO DAILY [facility] Omeprazole (Omeprazole 40 Mg Capsule.Dr) 40 mg PO DAILY@0630 [facility] Last Admin: 04/08/25 05:56 Dose: 40 mg Documented By: INDIRA Ondansetron HCl (Ondansetron Hcl 4 Mg/2 Ml Vial) 4 mg IVPUSH Q8H PRN PRN Reason: Nausea and Vomiting Oxycodone HCl (Oxycodone Hcl Immed Release 5 Mg Tablet) 10 mg PO Q4H PRN PRN Reason: Pain, Moderate(Pain Scale 4-6) Last Admin: 04/08/25 06:03 Dose: 10 mg Documented By: INDIRA Pharmacy Consult (Consult Rx Vancomycin Dosing) 1 each MISCELLANE DAILY PRN PRN Reason: Consult order Sodium Chloride (0.9 % Sodium Chloride Flush 3 Ml Syringe) 3 ml IVFLUSH QSHIFT [facility] Last Admin: 04/07/25 23:20 Dose: 3 ml Documented By: INDIRA Tamsulosin HCl (Tamsulosin Hcl 0.4 Mg Capsule) 0.4 mg PO BEDTIME [facility] Last Admin: 04/07/25 22:03 Dose: 0.4 mg Documented By: INDIRA <Sarahi Hussein - Last Filed: 04/08/25 07:07> Labs CBC & Chem 7: 04/08/25 05:56 04/08/25 05:56 <Sarahi Hussein - Last Filed: 04/08/25 07:07> Labs: Laboratory Results - last 24 hr 04/07/25 04/07/25 04/08/25 07:21 20:57 05:56 MCV 86.9 MCH 28.5 MCHC 32.7 RDW 15.4 Plt Count 226 MPV 9.9 Absolute Nucleated RBC 0.000 Nucleated RBC % (auto) 0.0 Anion Gap 12 12 Estim Creat Clear Calc 113.3 106.5 Estimated GFR > 60 > 60 Random Glucose 98 129 H Calcium 8.5 8.6 Total Bilirubin 1.6 H 1.0 Direct Bilirubin 1.0 H AST 51 H 62 H ALT 12 15 Alkaline Phosphatase 85 98 Total Protein 6.5 6.8 Albumin 3.3 L 3.3 L Vancomycin Trough 9.7 L Blood Type O Positive Antibody Screen NEGATIVE <Sarahi Hussein Last Filed: 04/08/25 07:07> Microbiology Microbiology Results: Microbiology 04/05/25 21:13 Blood Culture - Preliminary Blood - Venous No growth after 48 hours. 04/05/25 21:13 Blood Culture - Preliminary Blood - Venous No growth after 48 hours. 04/07/25 14:31 Gram Stain - Final Abscess Intra-abdominal <Sarahi Keenan - Last Filed: 04/08/25 07:07> Procedures Date of Service Date of Service: 04/08/25 <Sarahi Keenan - Last Filed: 04/08/25 07:07> 04/08/25 <Carlos Navas MD - Last Filed: 04/08/25 17:06> 04/08/25 <Juan Burkett PA-C - Last Filed: 04/08/25 11:52> Progress Note: A&P Assessment and plan (1) Acute cholecystitis: Status: Acute <Sarahichintan Hussein - Last Filed: 04/08/25 07:07> Assessment and Plan: Status post open cholecystectomy yesterday Note of small pus pocket on the fundus Says he has good pain control Feels much better compared to yesterday Abdomen isoft BRIDGER drain scanty, serosanguineous Advance diet today Ambulate Pain management Incentive spirometry Follow up cultures Seen and examined independently <Carlos Navas MD - Last Filed: 04/08/25 17:06> (2) S/P cholecystectomy: Status: Acute <Sarahichintan Hussein - Last Filed: 04/08/25 07:07> Assessment and Plan: The patient is s 70-year-old male POD1 s/p attempted laparoscopic cholecystectomy, converted to open partial fenestrating cholecystectomy secondary to acute cholecystitis with abscess. Upon entering the room he appears to be resting somewhat comfortably but is in 9/10 pain which he describes as sharp in his RUQ. He has been receiving Dilaudid for pain control which he states brings his pain to about a 7/10. He denies fever, chills, nausea, or vomiting. He is afebrile today, was febrile during the operation yesterday. He was given acetaminophen which reduced his fever. He has been using his spirometry hourly. He is able to ambulate without difficulty to the bathroom. He says that he has mild dysuria while urinating, UA with reflex to UC ordered. His preliminary culture of the abscess showed 2+ gram negative rods. His BRIDGER tube had recently been changed, but there was a small amount of blood in the drain pouch. Dressings are dry and in place. He is interested in introducing solids into his diet today. Continue to ambulate as tolerated UA ordered for mild dysuria Continue with BRIDGER drain changes Dressing changes Continue pain medication management as needed Encouraged to continue with spirometry use Plan to start introducing soft solid foods as tolerated <Sarahi Garcia Last Filed: 04/08/25 07:07> The patient is s 70-year-old male POD1 s/p attempted laparoscopic cholecystectomy, converted to open partial fenestrating cholecystectomy secondary to acute cholecystitis with abscess. Upon entering the room he appears to be resting somewhat comfortably but is in 9/10 pain which he describes as sharp in his RUQ. He has been receiving Dilaudid for pain control which he states brings his pain to about a 7/10. He denies fever, chills, nausea, or vomiting. He is afebrile today, was febrile during the operation yesterday. He was given acetaminophen which reduced his fever. He has been using his spirometry hourly. He is able to ambulate without difficulty to the bathroom. He says that he has mild dysuria while urinating, UA with reflex to UC ordered. His preliminary culture of the abscess showed 2+ gram negative rods. His BRIDGER tube had recently been changed, but there was a small amount of blood in the drain pouch. Dressings are dry and in place. He is interested in introducing solids into his diet today. Continue to ambulate as tolerated UA ordered for mild dysuria Continue with BRIDGER drain changes Dressing changes Continue pain medication management as needed Encouraged to continue with spirometry use Plan to start introducing soft solid foods as tolerated patient seen and examined independently, i agree with the above assesment and plan. BRIDGER drain output serosanguineous, non billious, 75 cc overnight. Drain will remain in place for now. incision dressings remain in place. <Juan Burkett PA-C - Last Filed: 04/08/25 11:52> Time Spent With Patient Time: Total time managing care of this patient today ____ minutes. <Sarahi Hussein - Last Filed: 04/08/25 07:07> Quality Stroke Does the patient have a stroke diagnosis?: No <Sarahi Garcia Last Filed: 04/08/25 07:07> VTE Prior VTE?: No <Sarahi Hussein - Last Filed: 04/08/25 07:07> VTE Risk Level:: Medical - moderate - high <Sarahi Garcia Last Filed: 04/08/25 07:07> VTE Device Contraindication: N/A - Device Ordered <Sarahi Hussein - Last Filed: 04/08/25 07:07> VTE Drug Contraindication: N/A - Med Ordered <Sarahi Hussein - Last Filed: 04/08/25 07:07>
[2025-04-08 06:47] LABS: Hematocrit 34.3 % (42.0-52.0); Hemoglobin 11.4 g/dl (14.0-18.0); Imm Gran Abs Auto 0.09 X10*3/uL (0.00-0.03); Imm Gran Pct Auto 0.6 % (0.0-0.4); Lymphocytes Absolute Auto 0.6 X10*3/uL (1.2-4.9); Mean Corpuscular HGB Conc 33.2 g/dl (31.0-36.0); Mean Corpuscular Hemoglobin 28.9 pg (27.0-33.0); Mean Corpuscular Volume 86.8 fL (80.0-98.0); NRBC Abs Auto 0.000 X10*3/uL (0.0-0.012); NRBC Pct Auto 0.0 /100WBC (0.0-0.2); Platelet Count 252 X10*3/uL (160-400); Red Blood Count 3.95 X10*6/uL (4.60-5.80); White Blood Count 16.3 X10*3/uL (4.8-10.8)
--- NOTE | 2025-04-08 08:34 | HO.POSTANES ---
Post Anesthesia Evaluation Post Anesthesia Evaluation Date of Service: 04/08/25 Vital Signs: Vital Signs Temp Pulse Resp BP Pulse Ox O2 Del Method O2 Flow Rate 04/08/25 07:30 96.5 F L 88 12 150/68 H 92 Room Air 04/08/25 05:29 96.9 F 84 18 137/87 96 Nasal Cannula 2 04/07/25 22:00 97.2 F 87 18 135/80 97 Nasal Cannula 2 Anesthesia: General Endotracheal-GETA Mental Status: Awake Pain Control: Satisfactory Nausea/Vomiting: None Hydration: Adequate Anesthesia-Related Issues: No Anes. Related Issues
[2025-04-08] MEDS: 0.9 % Sodium Chloride Flush 3 ML SYRINGE IVFLUSH ×2 (09:08→23:42)
[2025-04-08] MEDS: Metoprolol Succinate ER 50 MG TAB.ER.24H PO (09:16)
[2025-04-08] MEDS: Throat Lozenge, Medicated LOZENGE 1 LOZENGE MUCOUS MEM (09:16)
[2025-04-08] MEDS: Ferrous Sulfate 324 MG TABLET.DR PO (09:18)
[2025-04-08] MEDS: Dorzolamide HCl 2 % Ophth Sol 10 ML DRPBTL 1 DROP EYE-BOTH ×2 (09:50→21:28)
[2025-04-08] MEDS: Brimonidine Tartrate 0.2% Oph 5 ML BOTTLE 1 DROP EYE-BOTH ×2 (09:50→21:28)
[2025-04-08 09:54] LABS: Appearance Urine Clear; Glucose Urine UA Negative (Negative); PH 6.0 (5.0-9.0); Specific Gravity - Urine 1.025 (1.005-1.025); UMIC TRIGGER UACC YES
[2025-04-08] MEDS: Lactated Ringers 1,000 ML 80 ML IVCONT (15:10)
--- NOTE | 2025-04-08 17:04 | PM.EVENT ---
Event Note Date of Service: 04/08/25 Event Note: Seen on afternoon rounds Complains of incisional pain Tolerating liquids well Feels much better overall BRIDGER drain thick serosanguineous, scanty Okay to try regular diet Ambulate Pain management Doing well postop overall Discussed with daughter and family Time Spent With Patient Time: Total time managing care of this patient today ____ minutes.
--- NOTE | 2025-04-08 21:45 | HE.PHANOTE ---
RE: Vanco Trough returned within therapeutic range. No adjustments to dose at this time. 1500 mg q12h has a predicted AUC of 504 and trough of 15.6. Next trough 04/10 @0900.
[2025-04-09 03:25] VITALS: BP 143/72; PULSE 93; RESP 20; TEMP 36.4; O2SAT 95
[2025-04-09] MEDS: Lactated Ringers 1,000 ML 80 ML IVCONT (05:22)
[2025-04-09] MEDS: oxyCODONE HCl Immed Release 5 MG TABLET 10 MG PO ×3 (05:25→23:43)
[2025-04-09 06:42] LABS: Creatinine Clr Calc Pharmacy 86.2; Estimated Glomerular Filt Rate > 60
--- NOTE | 2025-04-09 07:15 | HE.PHANOTE ---
RE: VANCO DOSING Renal function worsened, concerned for KATHRYN. Dose is decreased to 1250 mg q12h, trough remains @0900 on 04/10/25.
[2025-04-09 07:34] VITALS: BP 136/70; PULSE 88; RESP 15; TEMP 36.1; O2SAT 93
[2025-04-09] MEDS: Metoprolol Succinate ER 50 MG TAB.ER.24H PO (08:31)
[2025-04-09] MEDS: Ferrous Sulfate 324 MG TABLET.DR PO (08:32)
[2025-04-09] MEDS: 0.9 % Sodium Chloride Flush 3 ML SYRINGE IVFLUSH ×3 (08:34→23:12)
[2025-04-09] MEDS: Dorzolamide HCl 2 % Ophth Sol 10 ML DRPBTL 1 DROP EYE-BOTH ×2 (09:17→21:14)
[2025-04-09] MEDS: Brimonidine Tartrate 0.2% Oph 5 ML BOTTLE 1 DROP EYE-BOTH ×2 (09:17→21:14)
--- NOTE | 2025-04-09 11:13 | PM.PNGS ---
Subjective Subjective Date of Service: 04/09/25 Interval history: Doing well today. pain improving, well controlled with medication, has increased pain when coughing. diet was advanced, he is tolerating regular diet. denying N/V. denies fever or chills. has been ambulating. Passing gas, no BM. Physical Exam Vital Signs: Vital Signs: Last Vital Signs Temp 97.0 F 04/09/25 07:34 Pulse 88 04/09/25 07:34 Resp 15 04/09/25 07:34 BP 136/70 04/09/25 07:34 Pulse Ox 93 04/09/25 07:34 O2 Del Method Room Air 04/09/25 07:34 O2 Flow Rate 2 04/08/25 05:29 BMI result Body Mass Index 34.8 Const: General: comfortable and no acute distress Orientation/consciousness: patient oriented x3 Resp: Effort & Inspection: normal respiratory effort and able to speak in complete sentences GI: Other: ed in place, 50 cc in past 24. serosangenious. non billious. Some mild serosanguineous drainage around ED drain. Nonpurulent ED remains patent incision site intact, elieser in palce, no discharge Inspection: Yes distended (mild) Palpation (GI): Soft to palpation, Tenderness to palpation present (GI) (incision site), no guarding and not rigid Neuro: General: patient oriented x3 Objective Data Active Medications Amlodipine Besylate (Amlodipine Besylate 10 Mg Tablet) 10 mg PO DAILY [facility]; Protocol Last Admin: 04/09/25 08:32 Dose: 10 mg Documented By: YESSY Benzocaine (Throat Lozenge, Medicated Lozenge) 1 lozenge MUCOUS MEM Q2H PRN PRN Reason: Sore Throat Last Admin: 04/08/25 09:16 Dose: 1 lozenge Documented By: YESSY Brimonidine Tartrate (Brimonidine Tartrate 0.2% Oph 5 Ml Bottle) 1 drop EYE-BOTH BID [facility] Last Admin: 04/09/25 09:17 Dose: 1 drop Documented By: YESSY Calcium Carbonate (Calcium Carbonate 750 Mg Tab.Chew) 750 mg PO Q4H PRN PRN Reason: Heartburn Diazepam (Diazepam 10 Mg/2 Ml Cartridge) 10 mg IVPUSH Q4H PRN PRN Reason: Anxiety Last Admin: 04/07/25 23:17 Dose: 10 mg Documented By: INDIRA Dorzolamide HCl (Dorzolamide Hcl 2 % Ophth Aminah 10 Ml Drpbtl) 1 drop EYE-BOTH BID [facility] Last Admin: 04/09/25 09:17 Dose: 1 drop Documented By: YESSY Ferrous Sulfate (Ferrous Sulfate 324 Mg Tablet.Dr) 324 mg PO DAILY [facility] Last Admin: 04/09/25 08:32 Dose: 324 mg Documented By: YESSY Finasteride (Finasteride 5 Mg Tablet) 5 mg PO DAILY [facility] Last Admin: 04/09/25 08:32 Dose: 5 mg Documented By: YESSY Heparin Sodium (Porcine) (Heparin Sodium,Porcine 5,000 Unit/Ml Vial) 5,000 unit SUBCUT Q12H [facility] Last Admin: 04/09/25 09:25 Dose: 5,000 unit Documented By: YESSY Hydralazine HCl (Hydralazine Hcl 20 Mg/Ml Vial) 10 mg IVPUSH Q6H PRN; Protocol PRN Reason: SBP > 160 Last Admin: 04/04/25 13:46 Dose: 10 mg Documented By: DENIA Hydromorphone HCl (Hydromorphone Hcl 1 Mg/Ml Syringe) 1 mg IVPUSH Q3H PRN; Protocol PRN Reason: Pain, Severe (Pain Scale 7-10) Last Admin: 04/09/25 06:43 Dose: 1 mg Documented By: PASHA Hydroxyzine HCl (Hydroxyzine Hcl 25 Mg Tablet) 25 mg PO BEDTIME PRN PRN Reason: Insomnia Lactated Ringer's (Lr) 1,000 mls @ 80 mls/hr IVCONT .[id number] [facility] Last Admin: 04/09/25 05:22 Dose: 80 mls/hr Documented By: PASHA Piperacillin Sod/Tazobactam (Sod 3.375 gm/ Sodium Chloride) 50 mls @ 100 mls/hr IV Q6H [facility] Last Infusion: 04/09/25 06:18 Dose: Infused Documented By: PASHA Lactated Ringer's (Lr) 500 mls @ 20 mls/hr IVCONT .Q24H [facility] Last Admin: 04/08/25 12:09 Dose: Not Given Documented By: YESSY Non-Admin Reason: IV Running Acetaminophen (Ofirmev) 1,000 mg in 100 mls @ 400 mls/hr IV Q6H [facility] Last Infusion: 04/09/25 09:33 Dose: Infused Documented By: YESSY Vancomycin HCl 1,250 mg/ (Sodium Chloride) 250 mls @ 166.667 mls/hr IV Q12H [facility] Lisinopril (Lisinopril 20 Mg Tablet) 20 mg PO DAILY [facility]; Protocol Last Admin: 04/09/25 08:31 Dose: 20 mg Documented By: YESSY Magnesium Hydroxide (Milk Of Magnesia 30 Ml Oral.Susp) 30 ml PO DAILY PRN PRN Reason: Constipation Melatonin (Melatonin 3 Mg Tablet) 6 mg PO BEDTIME PRN PRN Reason: Insomnia Metoprolol Succinate (Metoprolol Succinate Er 50 Mg Tab.Er.24h) 50 mg PO DAILY [facility]; Protocol Last Admin: 04/09/25 08:31 Dose: 50 mg Documented By: YESSY Naloxone HCl (Naloxone Hcl 0.4 Mg/Ml Vial) 0.04 mg IVPUSH Q5M PRN PRN Reason: Excessive sedation or RR < 8 Naloxone HCl (Naloxone Hcl 0.4 Mg/Ml Vial) 0.04 mg IVPUSH Q5M PRN PRN Reason: Excessive sedation or RR < 8 Non-Formulary Medication (Tadalafil) 5 mg PO DAILY [facility] Omeprazole (Omeprazole 40 Mg Capsule.Dr) 40 mg PO DAILY@0630 [facility] Last Admin: 04/09/25 05:41 Dose: 40 mg Documented By: PASHA Ondansetron HCl (Ondansetron Hcl 4 Mg/2 Ml Vial) 4 mg IVPUSH Q8H PRN PRN Reason: Nausea and Vomiting Oxycodone HCl (Oxycodone Hcl Immed Release 5 Mg Tablet) 10 mg PO Q4H PRN PRN Reason: Pain, Moderate(Pain Scale 4-6) Last Admin: 04/09/25 05:25 Dose: 10 mg Documented By: PASHA Pharmacy Consult (Consult Rx Vancomycin Dosing) 1 each MISCELLANE DAILY PRN PRN Reason: Consult order Sodium Chloride (0.9 % Sodium Chloride Flush 3 Ml Syringe) 3 ml IVFLUSH QSHIFT [facility] Last Admin: 04/09/25 08:34 Dose: 3 ml Documented By: YESSY Tamsulosin HCl (Tamsulosin Hcl 0.4 Mg Capsule) 0.4 mg PO BEDTIME [facility] Last Admin: 04/08/25 21:16 Dose: 0.4 mg Documented By: [facility] 04/08/25 05:56 04/09/25 05:47 Labs: Laboratory Results - last 24 hr 04/08/25 04/09/25 21:06 05:47 Estim Creat Clear Calc 86.2 Estimated GFR > 60 Random Vancomycin 15.6 Microbiology Microbiology Results: Microbiology 04/07/25 14:31 Gram Stain - Final Abscess Intra-abdominal Routine Culture - Final Klebsiella pneumoniae Procedures Date of Service Date of Service: 04/09/25 Progress Note: A&P Assessment and plan (1) Acute cholecystitis: Status: Acute (2) S/P cholecystectomy: Status: Acute Plan The patient is s 70-year-old male POD3 s/p attempted laparoscopic cholecystectomy, converted to open partial fenestrating cholecystectomy secondary to acute cholecystitis with abscess. pain is improving, still very painful when he is coughing. He is tolerating regular diet well. Has been ambulating. Denies nausea or vomiting, passing gas but no BMs at this point. UA yesterday negative for infection. ED drain output overnight 50 cc appears serosanguineous, nonbilious abdomen is soft mildly distended, tender localized around the incision site. Vitals are stable Continue to ambulate as tolerated Continue with ED drain management, patient will likely go home with ED and have this removed in the office at 1st postop visit Continue pain medication management as needed Encouraged to continue with spirometry use Regular diet If tolerating regular diet, pain controlled can be discharged over the weekend. To follow up in one-week after discharge Time Spent With Patient Time: Total time managing care of this patient today ____ minutes. Quality Stroke Does the patient have a stroke diagnosis?: No VTE Prior VTE?: No VTE Risk Level:: Medical - moderate - high VTE Device Contraindication: N/A - Device Ordered VTE Drug Contraindication: N/A - Med Ordered
[2025-04-09 13:56] VITALS: BP 138/73; PULSE 100; RESP 15; TEMP 36.9; O2SAT 94
--- NOTE | 2025-04-09 16:25 | MHC.CM.PN ---
PER MD PN, PT WILL LIKELY DC WITH BRIDGER DRAIN [facility] REFERRAL PLACED
[2025-04-09] MEDS: Milk of Magnesia 30 ML ORAL.SUSP PO (19:38)
[2025-04-09] MEDS: Lactated Ringers 1,000 ML 100 ML IVCONT (21:49)
[2025-04-09 22:00] VITALS: BP 139/78; PULSE 106; RESP 17; TEMP 36.8; O2SAT 95
[2025-04-10] VITALS (7 sets, daily range): BP systolic 137–186; BP diastolic 76–94; PULSE 95–110; RESP 20–25; TEMP 36.4–37.1; O2SAT 92–95
[2025-04-10] MEDS: oxyCODONE HCl Immed Release 5 MG TABLET 10 MG PO ×3 (06:18→19:38)
[2025-04-10 07:06] LABS: Creatinine Clr Calc Pharmacy 135.1; Estimated Glomerular Filt Rate > 60
[2025-04-10] MEDS: Lactated Ringers 1,000 ML 100 ML IVCONT ×2 (08:38→17:24)
[2025-04-10] MEDS: Metoprolol Succinate ER 50 MG TAB.ER.24H PO (08:44)
[2025-04-10] MEDS: Ferrous Sulfate 324 MG TABLET.DR PO (08:44)
[2025-04-10] MEDS: Dorzolamide HCl 2 % Ophth Sol 10 ML DRPBTL 1 DROP EYE-BOTH ×2 (08:51→19:58)
[2025-04-10] MEDS: Brimonidine Tartrate 0.2% Oph 5 ML BOTTLE 1 DROP EYE-BOTH ×2 (08:51→19:58)
--- NOTE | 2025-04-10 10:23 | HE.PHANOTE ---
Vancomycin dosing Level 12.8 today with a predict AUC of 369. Will increase dose to vancomycin 1500 mg Q12H to increase predicted AUC to 442. Next level 04/11 @ 2100. Pharmacy will continue to follow. Brittany Riley PharmD
--- NOTE | 2025-04-10 10:54 | PC.NURSE ---
Primary RN concern for bleeding at ABD Surgical site, Mattress Weaver Surgeon notified, MD [place] notified, order for Stat Labs and Stat KUB, Departments called and notified, VS elevated, Clin sup notified.
--- NOTE | 2025-04-10 11:50 | PC.NURSE ---
Phlebotomy unable to draw STAT Labs on patient, attempted to draw x 2 with two different techs. Primary RN Gwen notified Covering Provider.
[2025-04-10 12:06] LABS: Hematocrit 31.6 % (42.0-52.0); Hemoglobin 10.5 g/dl (14.0-18.0); Imm Gran Abs Auto 0.09 X10*3/uL (0.00-0.03); Imm Gran Pct Auto 0.6 % (0.0-0.4); Lymphocytes Absolute Auto 2.5 X10*3/uL (1.2-4.9); MANUAL DIFF FLAG SCAN; Mean Corpuscular HGB Conc 33.2 g/dl (31.0-36.0); Mean Corpuscular Hemoglobin 28.8 pg (27.0-33.0); Mean Corpuscular Volume 86.8 fL (80.0-98.0); NRBC Abs Auto 0.000 X10*3/uL (0.0-0.012); NRBC Pct Auto 0.0 /100WBC (0.0-0.2); Platelet Count 293 X10*3/uL (160-400); Red Blood Count 3.64 X10*6/uL (4.60-5.80); SCAN SMEAR FLAG 1; White Blood Count 14.4 X10*3/uL (4.8-10.8)
[2025-04-10 12:10] LABS: Alanine Aminotransferase 13 U/L (0-40); Albumin Level 3.0 g/dL (3.5-5.0); Alkaline Phosphatase 96 U/L (39-117); Anion Gap 13 (12-20); Aspartate Amino Transferase 64 U/L (5-37); Blood Urea Nitrogen 12 mg/dL (9-16); Calcium 8.3 mg/dL (8.4-10.2); Carbon Dioxide 25 mmol/L (22-29); Chloride 106 mmol/L (96-108); Potassium 3.6 mmol/L (3.3-5.1); Sodium 140 mmol/L (135-145); Total Protein 6.2 g/dL (6.5-8.0)
[2025-04-10 13:00] LABS: ABG HCO3 30 mmol/L (22-26); ABG O2 % Saturation 97.0 %
--- NOTE | 2025-04-10 14:50 | P.PNIM_ITS ---
Subjective Subjective Date of Service: 04/10/25 Interval History: seen in f/u for med management Pt has had abdominal distention, and oozing of blood from staple site BP elevated. A stat CT requested, reviewed Physical Exam 2 Vital Signs: Vital Signs: Last Vital Signs Temp 98.8 F 04/10/25 12:02 Pulse 108 H 04/10/25 12:02 Resp 25 H 04/10/25 12:02 BP 186/94 H 04/10/25 12:02 Pulse Ox 92 04/10/25 12:02 O2 Del Method Room Air 04/10/25 12:02 O2 Flow Rate 2 04/08/25 05:29 BMI result Body Mass Index 34.8 Const: Other: General: AO X 3, mild discomfort in abd d/t distention, seems anxious Resp: CTA bilateral CVS: S1,S2,RRR GI: distendended but probably baseline large abdominal girth, mild oozing from staple site Skin: No rash Neuro: motor grossly intact Psych: appropriate affect Objective Data Active Medications Amlodipine Besylate (Amlodipine Besylate 10 Mg Tablet) 10 mg PO DAILY [facility]; Protocol Last Admin: 04/10/25 08:45 Dose: 10 mg Documented By: JACEK Benzocaine (Throat Lozenge, Medicated Lozenge) 1 lozenge MUCOUS MEM Q2H PRN PRN Reason: Sore Throat Last Admin: 04/08/25 09:16 Dose: 1 lozenge Documented By: YESSY Brimonidine Tartrate (Brimonidine Tartrate 0.2% Oph 5 Ml Bottle) 1 drop EYE- BOTH BID [facility] Last Admin: 04/10/25 08:51 Dose: 1 drop Documented By: JACEK Calcium Carbonate (Calcium Carbonate 750 Mg Tab.Chew) 750 mg PO Q4H PRN PRN Reason: Heartburn Diazepam (Diazepam 10 Mg/2 Ml Cartridge) 10 mg IVPUSH Q4H PRN PRN Reason: Anxiety Last Admin: 04/07/25 23:17 Dose: 10 mg Documented By: INDIRA Dorzolamide HCl (Dorzolamide Hcl 2 % Ophth Aminah 10 Ml Drpbtl) 1 drop EYE-BOTH BID [facility] Last Admin: 04/10/25 08:51 Dose: 1 drop Documented By: JACEK Ferrous Sulfate (Ferrous Sulfate 324 Mg Tablet.Dr) 324 mg PO DAILY [facility] Last Admin: 04/10/25 08:44 Dose: 324 mg Documented By: JACEK Finasteride (Finasteride 5 Mg Tablet) 5 mg PO DAILY [facility] Last Admin: 04/10/25 08:39 Dose: 5 mg Documented By: JACEK Heparin Sodium (Porcine) (Heparin Sodium,Porcine 5,000 Unit/Ml Vial) 5,000 unit SUBCUT Q12H [facility] Last Admin: 04/10/25 13:45 Dose: Not Given Documented By: JACEK Non-Admin Reason: Physician Held Med Hydralazine HCl (Hydralazine Hcl 20 Mg/Ml Vial) 10 mg IVPUSH Q6H PRN; Protocol PRN Reason: SBP > 160 Last Admin: 04/04/25 13:46 Dose: 10 mg Documented By: DENIA Hydroxyzine HCl (Hydroxyzine Hcl 25 Mg Tablet) 25 mg PO BEDTIME PRN PRN Reason: Insomnia Lactated Ringer's (Lr) 500 mls @ 20 mls/hr IVCONT .Q24H [facility] Last Admin: 04/10/25 14:06 Dose: Not Given Documented By: JACEK Non-Admin Reason: IV Running Lactated Ringer's (Lr) 1,000 mls @ 100 mls/hr IVCONT .Q10H [facility] Last Admin: 04/10/25 08:38 Dose: 100 mls/hr Documented By: JACEK Vancomycin HCl 1,500 mg/ (Sodium Chloride) 500 mls @ 333.333 mls/hr IV Q12H [facility] Last Infusion: 04/10/25 13:57 Dose: Infused Documented By: JACEK Piperacillin Sod/Tazobactam (Sod 3.375 gm/ Sodium Chloride) 50 mls @ 100 mls/hr IV Q6H [facility] Last Admin: 04/10/25 13:53 Dose: 100 mls/hr Documented By: JACEK Acetaminophen (Ofirmev) 1,000 mg in 100 mls @ 400 mls/hr IV Q6H [facility] Last Admin: 04/10/25 13:59 Dose: 400 mls/hr Documented By: JACEK Lisinopril (Lisinopril 20 Mg Tablet) 20 mg PO DAILY [facility]; Protocol Last Admin: 04/10/25 08:45 Dose: 20 mg Documented By: JACEK Magnesium Hydroxide (Milk Of Magnesia 30 Ml Oral.Susp) 30 ml PO DAILY PRN PRN Reason: Constipation Last Admin: 04/09/25 19:38 Dose: 30 ml Documented By: ELIANA Melatonin (Melatonin 3 Mg Tablet) 6 mg PO BEDTIME PRN PRN Reason: Insomnia Metoprolol Succinate (Metoprolol Succinate Er 50 Mg Tab.Er.24h) 50 mg PO DAILY [facility]; Protocol Last Admin: 04/10/25 08:44 Dose: 50 mg Documented By: JACEK Morphine Sulfate (Morphine Sulfate 4 Mg/Ml Cartridge) 4 mg IVPUSH Q4H PRN; Protocol PRN Reason: Pain, Severe (Pain Scale 7-10) Last Admin: 04/10/25 08:44 Dose: 4 mg Documented By: JACEK Naloxone HCl (Naloxone Hcl 0.4 Mg/Ml Vial) 0.04 mg IVPUSH Q5M PRN PRN Reason: Excessive sedation or RR < 8 Naloxone HCl (Naloxone Hcl 0.4 Mg/Ml Vial) 0.04 mg IVPUSH Q5M PRN PRN Reason: Excessive sedation or RR < 8 Omeprazole (Omeprazole 40 Mg Capsule.Dr) 40 mg PO DAILY@0630 [facility] Last Admin: 04/10/25 06:14 Dose: 40 mg Documented By: ELIANA Ondansetron HCl (Ondansetron Hcl 4 Mg/2 Ml Vial) 4 mg IVPUSH Q8H PRN PRN Reason: Nausea and Vomiting Oxycodone HCl (Oxycodone Hcl Immed Release 5 Mg Tablet) 5 mg PO Q4H PRN PRN Reason: Pain, Mild 1-3,fever,headache Oxycodone HCl (Oxycodone Hcl Immed Release 5 Mg Tablet) 10 mg PO Q4H PRN PRN Reason: Pain, Moderate(Pain Scale 4-6) Last Admin: 04/10/25 12:09 Dose: 10 mg Documented By: JACEK Pharmacy Consult (Consult Rx Vancomycin Dosing) 1 each MISCELLANE DAILY PRN PRN Reason: Consult order Sodium Chloride (0.9 % Sodium Chloride Flush 3 Ml Syringe) 3 ml IVFLUSH HIFT [facility] Last Admin: 04/10/25 09:01 Dose: Not Given Documented By: JACEK Non-Admin Reason: Previously Administered Tamsulosin HCl (Tamsulosin Hcl 0.4 Mg Capsule) 0.4 mg PO BEDTIME [facility] Last Admin: 04/09/25 21:14 Dose: 0.4 mg Documented By: ELIANA Labs 04/10/25 06:25 04/10/25 05:52 Labs: Laboratory Results - last 24 hr 04/10/25 04/10/25 04/10/25 05:52 06:25 09:33 MCV 86.8 MCH 28.8 MCHC 33.2 RDW 16.0 Plt Count 293 MPV 9.8 Immature Gran % (Auto) 0.6 H Neut % (Auto) 71.6 Lymph % (Auto) 17.2 L [place] % (Auto) 9.3 Eos % (Auto) 1.0 Baso % (Auto) 0.3 Lymph # (Auto) 2.5 [place] # (Auto) 1.3 H Eos # (Auto) 0.1 Baso # (Auto) 0.0 Abs Immat Gran (auto) 0.09 H Absolute Neuts (auto) 10.3 H Absolute Nucleated RBC 0.000 Nucleated RBC % (auto) 0.0 Smear Tech's Comments VERIFIED Hold Purple Top SEE NOTE O2 Saturation ABG pH at Pt Temp ABG pCO2 at Pt Temp ABG pO2 at Pt Temp ABG HCO3 ABG Base Excess (Actual) Anion Gap 13 Estim Creat Clear Calc 135.1 Estimated GFR > 60 Random Glucose 105 Calcium 8.3 L Total Bilirubin 0.6 AST 64 H ALT 13 Alkaline Phosphatase 96 Total Protein 6.2 L Albumin 3.0 L Vancomycin Trough 12.8 04/10/25 12:56 MCV MCH MCHC RDW Plt Count MPV Immature Gran % (Auto) Neut % (Auto) Lymph % (Auto) [place] % (Auto) Eos % (Auto) Baso % (Auto) Lymph # (Auto) [place] # (Auto) Eos # (Auto) Baso # (Auto) Abs Immat Gran (auto) Absolute Neuts (auto) Absolute Nucleated RBC Nucleated RBC % (auto) Smear Tech's Comments Hold Purple Top O2 Saturation 97.0 ABG pH at Pt Temp 7.45 ABG pCO2 at Pt Temp 43 ABG pO2 at Pt Temp 86 ABG HCO3 30 H ABG Base Excess (Actual) 6.2 Anion Gap Estim Creat Clear Calc Estimated GFR Random Glucose Calcium Total Bilirubin AST ALT Alkaline Phosphatase Total Protein Albumin Vancomycin Trough Assessment and Plan (1) Hypertension: Status: Acute (2) Small bowel obstruction: Status: Acute Plan Patient is a 69-year-old male with past medical history COVID-19, BPH, 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 Hospitalist group consulted per Dr. Navas for management of hypertension. Currently it is felt that hypertension is related to patient's symptoms of persistent nausea with vomiting. Nursing is following through on plan to place NG tube to help relieve patient's symptoms. 1. Hypertension, BP elevated probably related to abdominal distention and discomfort, presently 186/94 continue present meds Lisinopril 20, toprol 50 and Norvasc 10, increase toprol to 75 2. Small-bowel obstruction -Management per General surgery 3. Sob, likely related to abd distention, abg reviewed and unremarkable , xray if worsening 3.GERD -omeprazole 4. glaucoma, eye drops 5 We will follow Quality Stroke Does the patient have a stroke diagnosis?: No VTE Prior VTE?: No VTE Risk Level:: Medical - moderate - high VTE Device Contraindication: N/A - Device Ordered VTE Drug Contraindication: N/A - Med Ordered
[2025-04-10] MEDS: Metoprolol Succinate ER 25 MG TAB.ER.24H PO (15:48)
--- NOTE | 2025-04-10 15:48 | PM.PNGS ---
Subjective Subjective Date of Service: 04/11/25 Interval history: Patient this morning not feeling well. Says that he has not had a bowel movement in the last several days but has been passing gas. Feels like his abdomen is more distended and bloated. From his right upper quadrant incision the medial aspect there is some blood oozing on the gauze. He feels like he is having trouble breathing secondary to the pressure in his abdomen. He feels uncomfortable. Physical Exam Vital Signs: Vital Signs: Last Vital Signs Temp 97.5 F 04/10/25 15:45 Pulse 99 04/10/25 15:45 Resp 20 04/10/25 15:45 BP 162/80 H 04/10/25 15:45 Pulse Ox 95 04/10/25 15:45 O2 Del Method Nasal Cannula 04/10/25 15:45 O2 Flow Rate 2 04/10/25 15:45 BMI result Body Mass Index 34.8 Const: General: cooperative and acute distress moderate GI: Other: Abdomen is soft but distended tympanitic tender specifically around the right upper quadrant area. The medial aspect of the incision has some bloody ooze of fluid. When probed there is no purulent discharge or any significant serous discharge. Silver nitrate was applied at the edge of a here and this seemed to stop the oozing. BRIDGER drain contents are serosanguineous. Skin: Other: Nonicteric Objective Data Active Medications Amlodipine Besylate (Amlodipine Besylate 10 Mg Tablet) 10 mg PO DAILY [facility]; Protocol Last Admin: 04/10/25 08:45 Dose: 10 mg Documented By: JACEK Benzocaine (Throat Lozenge, Medicated Lozenge) 1 lozenge MUCOUS MEM Q2H PRN PRN Reason: Sore Throat Last Admin: 04/08/25 09:16 Dose: 1 lozenge Documented By: YESSY Brimonidine Tartrate (Brimonidine Tartrate 0.2% Oph 5 Ml Bottle) 1 drop EYE-BOTH BID [facility] Last Admin: 04/10/25 08:51 Dose: 1 drop Documented By: JACEK Calcium Carbonate (Calcium Carbonate 750 Mg Tab.Chew) 750 mg PO Q4H PRN PRN Reason: Heartburn Diazepam (Diazepam 10 Mg/2 Ml Cartridge) 10 mg IVPUSH Q4H PRN PRN Reason: Anxiety Last Admin: 04/07/25 23:17 Dose: 10 mg Documented By: INDIRA Dorzolamide HCl (Dorzolamide Hcl 2 % Ophth Aminah 10 Ml Drpbtl) 1 drop EYE-BOTH BID [facility] Last Admin: 04/10/25 08:51 Dose: 1 drop Documented By: JACEK Ferrous Sulfate (Ferrous Sulfate 324 Mg Tablet.Dr) 324 mg PO DAILY [facility] Last Admin: 04/10/25 08:44 Dose: 324 mg Documented By: JACEK Finasteride (Finasteride 5 Mg Tablet) 5 mg PO DAILY [facility] Last Admin: 04/10/25 08:39 Dose: 5 mg Documented By: JACEK Heparin Sodium (Porcine) (Heparin Sodium,Porcine 5,000 Unit/Ml Vial) 5,000 unit SUBCUT Q12H [facility] Last Admin: 04/10/25 13:45 Dose: Not Given Documented By: JACEK Non-Admin Reason: Physician Held Med Hydralazine HCl (Hydralazine Hcl 20 Mg/Ml Vial) 10 mg IVPUSH Q6H PRN; Protocol PRN Reason: SBP > 160 Last Admin: 04/04/25 13:46 Dose: 10 mg Documented By: DENIA Hydroxyzine HCl (Hydroxyzine Hcl 25 Mg Tablet) 25 mg PO BEDTIME PRN PRN Reason: Insomnia Lactated Ringer's (Lr) 500 mls @ 20 mls/hr IVCONT .Q24H [facility] Last Admin: 04/10/25 14:06 Dose: Not Given Documented By: JACEK Non-Admin Reason: IV Running Lactated Ringer's (Lr) 1,000 mls @ 100 mls/hr IVCONT .Q10H [facility] Last Admin: 04/10/25 08:38 Dose: 100 mls/hr Documented By: JACEK Vancomycin HCl 1,500 mg/ (Sodium Chloride) 500 mls @ 333.333 mls/hr IV Q12H [facility] Last Infusion: 04/10/25 13:57 Dose: Infused Documented By: JACEK Piperacillin Sod/Tazobactam (Sod 3.375 gm/ Sodium Chloride) 50 mls @ 100 mls/hr IV Q6H [facility] Last Infusion: 04/10/25 14:59 Dose: Infused Documented By: JACEK Acetaminophen (Ofirmev) 1,000 mg in 100 mls @ 400 mls/hr IV Q6H [facility] Last Infusion: 04/10/25 14:58 Dose: Infused Documented By: JACEK Lisinopril (Lisinopril 20 Mg Tablet) 20 mg PO DAILY [facility]; Protocol Last Admin: 04/10/25 08:45 Dose: 20 mg Documented By: JACEK Magnesium Hydroxide (Milk Of Magnesia 30 Ml Oral.Susp) 30 ml PO DAILY PRN PRN Reason: Constipation Last Admin: 04/09/25 19:38 Dose: 30 ml Documented By: ELIANA Melatonin (Melatonin 3 Mg Tablet) 6 mg PO BEDTIME PRN PRN Reason: Insomnia Metoprolol Succinate (Metoprolol Succinate Er 50 Mg Tab.Er.24h) 50 mg PO DAILY [facility]; Protocol Last Admin: 04/10/25 08:44 Dose: 50 mg Documented By: JACEK Morphine Sulfate (Morphine Sulfate 4 Mg/Ml Cartridge) 4 mg IVPUSH Q4H PRN; Protocol PRN Reason: Pain, Severe (Pain Scale 7-10) Last Admin: 04/10/25 08:44 Dose: 4 mg Documented By: JACEK Naloxone HCl (Naloxone Hcl 0.4 Mg/Ml Vial) 0.04 mg IVPUSH Q5M PRN PRN Reason: Excessive sedation or RR < 8 Naloxone HCl (Naloxone Hcl 0.4 Mg/Ml Vial) 0.04 mg IVPUSH Q5M PRN PRN Reason: Excessive sedation or RR < 8 Omeprazole (Omeprazole 40 Mg Capsule.Dr) 40 mg PO DAILY@0630 [facility] Last Admin: 04/10/25 06:14 Dose: 40 mg Documented By: ELIANA Ondansetron HCl (Ondansetron Hcl 4 Mg/2 Ml Vial) 4 mg IVPUSH Q8H PRN PRN Reason: Nausea and Vomiting Oxycodone HCl (Oxycodone Hcl Immed Release 5 Mg Tablet) 5 mg PO Q4H PRN PRN Reason: Pain, Mild 1-3,fever,headache Oxycodone HCl (Oxycodone Hcl Immed Release 5 Mg Tablet) 10 mg PO Q4H PRN PRN Reason: Pain, Moderate(Pain Scale 4-6) Last Admin: 04/10/25 12:09 Dose: 10 mg Documented By: JACEK Pharmacy Consult (Consult Rx Vancomycin Dosing) 1 each MISCELLANE DAILY PRN PRN Reason: Consult order Sodium Chloride (0.9 % Sodium Chloride Flush 3 Ml Syringe) 3 ml IVFLUSH QSHIFT [facility] Last Admin: 04/10/25 15:46 Dose: Not Given Documented By: JACEK Non-Admin Reason: IV Running Tamsulosin HCl (Tamsulosin Hcl 0.4 Mg Capsule) 0.4 mg PO BEDTIME [facility] Last Admin: 04/09/25 21:14 Dose: 0.4 mg Documented By: ELIANA Labs 04/10/25 06:25 04/11/25 06:09 Labs: Laboratory Results - last 24 hr 04/10/25 04/10/25 04/10/25 05:52 06:25 09:33 MCV 86.8 MCH 28.8 MCHC 33.2 RDW 16.0 Plt Count 293 MPV 9.8 Immature Gran % (Auto) 0.6 H Neut % (Auto) 71.6 Lymph % (Auto) 17.2 L Real % (Auto) 9.3 Eos % (Auto) 1.0 Baso % (Auto) 0.3 Lymph # (Auto) 2.5 Real # (Auto) 1.3 H Eos # (Auto) 0.1 Baso # (Auto) 0.0 Abs Immat Gran (auto) 0.09 H Absolute Neuts (auto) 10.3 H Absolute Nucleated RBC 0.000 Nucleated RBC % (auto) 0.0 Smear Tech's Comments VERIFIED Hold Purple Top SEE NOTE O2 Saturation ABG pH at Pt Temp ABG pCO2 at Pt Temp ABG pO2 at Pt Temp ABG HCO3 ABG Base Excess (Actual) Anion Gap 13 Estim Creat Clear Calc 135.1 Estimated GFR > 60 Random Glucose 105 Calcium 8.3 L Total Bilirubin 0.6 AST 64 H ALT 13 Alkaline Phosphatase 96 Total Protein 6.2 L Albumin 3.0 L Vancomycin Trough 12.8 04/10/25 12:56 MCV MCH MCHC RDW Plt Count MPV Immature Gran % (Auto) Neut % (Auto) Lymph % (Auto) Real % (Auto) Eos % (Auto) Baso % (Auto) Lymph # (Auto) Real # (Auto) Eos # (Auto) Baso # (Auto) Abs Immat Gran (auto) Absolute Neuts (auto) Absolute Nucleated RBC Nucleated RBC % (auto) Smear Tech's Comments Hold Purple Top O2 Saturation 97.0 ABG pH at Pt Temp 7.45 ABG pCO2 at Pt Temp 43 ABG pO2 at Pt Temp 86 ABG HCO3 30 H ABG Base Excess (Actual) 6.2 Anion Gap Estim Creat Clear Calc Estimated GFR Random Glucose Calcium Total Bilirubin AST ALT Alkaline Phosphatase Total Protein Albumin Vancomycin Trough Procedures Date of Service Date of Service: 04/11/25 Progress Note: A&P Assessment and plan (1) S/P cholecystectomy: Status: Acute Assessment and Plan: Patient Plan Patient is status post laparoscopic converted to open cholecystectomy and today not doing as well. Most likely secondary to ileus his abdomen is more distended and creating more pressure in his chest and respiratory area. He has been passing gas bowel sounds are hypoactive. CT scan showing findings most consistent with an ileus. Time Spent With Patient Time: Total time managing care of this patient today ____ minutes. Quality Stroke Does the patient have a stroke diagnosis?: No VTE Prior VTE?: No VTE Risk Level:: Medical - moderate - high VTE Device Contraindication: N/A - Device Ordered VTE Drug Contraindication: N/A - Med Ordered
--- NOTE | 2025-04-10 16:04 | PC.NURSE ---
10:35 t/w notified by [employer] OPERATOR that the patients post op incision was oozing blood. Small amount of oozing noted at top of surgical incision by elieser. Vital signs taken BP 178/84 P 110 R 24 O2 92 on room air T 98.[address] Woodall notified. CBC and CMP ordered per MD. Dr Okeefe at bedside. Abd CT ordered. 12:50 pt tachypnic with RR 25 O2 checked 90 on room air. 2LNC applied O2 increased to 96. Vitals checked BP 186/94 HR 108 T 98.8 orally. Blood still noted to be oozing from surgical site. Dr Woodall notified and came to bedside.
[2025-04-10 17:55] LABS: ABG Refer to POC result
[2025-04-10] MEDS: 0.9 % Sodium Chloride Flush 3 ML SYRINGE IVFLUSH (19:34)
[2025-04-11] MEDS: Lactated Ringers 1,000 ML 100 ML IVCONT ×2 (01:13→13:30)
[2025-04-11 05:22] VITALS: BP 142/85; PULSE 69; RESP 20; TEMP 36.8; O2SAT 93
[2025-04-11 06:35] LABS: Creatinine Clr Calc Pharmacy 139.2; Estimated Glomerular Filt Rate > 60
[2025-04-11 07:41] VITALS: BP 171/91; PULSE 97; RESP 18; TEMP 36.4; O2SAT 94
[2025-04-11] MEDS: Ferrous Sulfate 324 MG TABLET.DR PO (08:09)
[2025-04-11] MEDS: Metoprolol Succinate ER 50 MG TAB.ER.24H PO (08:09)
[2025-04-11] MEDS: Dorzolamide HCl 2 % Ophth Sol 10 ML DRPBTL 1 DROP EYE-BOTH (08:11)
[2025-04-11] MEDS: Brimonidine Tartrate 0.2% Oph 5 ML BOTTLE 1 DROP EYE-BOTH (08:13)
[2025-04-11 10:03] VITALS: BP 149/83; PULSE 97; RESP 18
--- NOTE | 2025-04-11 12:29 | PC.NURSE ---
Provider removed two elieser, packed medial wound with iodoform packing gauze, dcd.
--- NOTE | 2025-04-11 13:49 | PM.PNGS ---
Subjective Subjective Date of Service: 04/11/25 Interval history: The patient looks better feeling more comfortable abdomen is still distended no nausea or vomiting has been passing gas but no stool. Breathing better on room air Physical Exam Vital Signs: Vital Signs: Last Vital Signs Temp 97.6 F 04/11/25 07:41 Pulse 97 04/11/25 10:03 Resp 18 04/11/25 10:03 BP 149/83 H 04/11/25 10:03 Pulse Ox 94 04/11/25 07:41 O2 Del Method Room Air 04/11/25 07:41 O2 Flow Rate 2 04/10/25 15:45 BMI result Body Mass Index 34.8 GI: Other: Abdomen is soft still distended we will tympanitic but improved less tender than yesterday. Yesterday the medial aspect of his incision was oozing some bled and silver nitrate was applied at the corner. Still bleeding overnight into today so 2 stitches were removed and the fluid examined was more bloody seroma type fluid so the area was probed and packed. Objective Data Active Medications Amlodipine Besylate (Amlodipine Besylate 10 Mg Tablet) 10 mg PO DAILY [facility]; Protocol Last Admin: 04/11/25 08:09 Dose: 10 mg Documented By: JIGNESH Benzocaine (Throat Lozenge, Medicated Lozenge) 1 lozenge MUCOUS MEM Q2H PRN PRN Reason: Sore Throat Last Admin: 04/08/25 09:16 Dose: 1 lozenge Documented By: YESSY Brimonidine Tartrate (Brimonidine Tartrate 0.2% Oph 5 Ml Bottle) 1 drop EYE-BOTH BID [facility] Last Admin: 04/11/25 08:13 Dose: 1 drop Documented By: JIGNESH Calcium Carbonate (Calcium Carbonate 750 Mg Tab.Chew) 750 mg PO Q4H PRN PRN Reason: Heartburn Diazepam (Diazepam 10 Mg/2 Ml Cartridge) 10 mg IVPUSH Q4H PRN PRN Reason: Anxiety Last Admin: 04/07/25 23:17 Dose: 10 mg Documented By: INDIRA Dorzolamide HCl (Dorzolamide Hcl 2 % Ophth Aminah 10 Ml Drpbtl) 1 drop EYE-BOTH BID [facility] Last Admin: 04/11/25 08:11 Dose: 1 drop Documented By: JIGNESH Ferrous Sulfate (Ferrous Sulfate 324 Mg Tablet.) 324 mg PO DAILY [facility] Last Admin: 04/11/25 08:09 Dose: 324 mg Documented By: JIGNESH Finasteride (Finasteride 5 Mg Tablet) 5 mg PO DAILY [facility] Last Admin: 04/11/25 08:09 Dose: 5 mg Documented By: JIGNESH Heparin Sodium (Porcine) (Heparin Sodium,Porcine 5,000 Unit/Ml Vial) 5,000 unit SUBCUT Q12H [facility] Last Admin: 04/11/25 08:21 Dose: Not Given Documented By: JIGNESH Non-Admin Reason: HOLD PER Hydralazine HCl (Hydralazine Hcl 20 Mg/Ml Vial) 10 mg IVPUSH Q6H PRN; Protocol PRN Reason: SBP > 160 Last Admin: 04/04/25 13:46 Dose: 10 mg Documented By: DENIA Hydroxyzine HCl (Hydroxyzine Hcl 25 Mg Tablet) 25 mg PO BEDTIME PRN PRN Reason: Insomnia Lactated Ringer's (Lr) 1,000 mls @ 100 mls/hr IVCONT .Q10H [facility] Last Infusion: 04/11/25 13:31 Dose: 0 mls/hr Documented By: JIGNESH Vancomycin HCl 1,500 mg/ (Sodium Chloride) 500 mls @ 333.333 mls/hr IV Q12H [facility] Last Infusion: 04/11/25 11:37 Dose: Infused Documented By: JIGNESH Piperacillin Sod/Tazobactam (Sod 3.375 gm/ Sodium Chloride) 50 mls @ 100 mls/hr IV Q6H [facility] Last Admin: 04/11/25 13:30 Dose: 100 mls/hr Documented By: JIGNESH Acetaminophen (Ofirmev) 1,000 mg in 100 mls @ 400 mls/hr IV Q6H [facility] Lisinopril (Lisinopril 20 Mg Tablet) 20 mg PO DAILY [facility]; Protocol Last Admin: 04/11/25 08:09 Dose: 20 mg Documented By: JIGNESH Magnesium Hydroxide (Milk Of Magnesia 30 Ml Oral.Susp) 30 ml PO DAILY PRN PRN Reason: Constipation Last Admin: 04/09/25 19:38 Dose: 30 ml Documented By: ELIANA Melatonin (Melatonin 3 Mg Tablet) 6 mg PO BEDTIME PRN PRN Reason: Insomnia Metoprolol Succinate (Metoprolol Succinate Er 50 Mg Tab.Er.24h) 50 mg PO DAILY [facility]; Protocol Last Admin: 04/11/25 08:09 Dose: 50 mg Documented By: JIGNESH Morphine Sulfate (Morphine Sulfate 4 Mg/Ml Cartridge) 4 mg IVPUSH Q4H PRN; Protocol PRN Reason: Pain, Severe (Pain Scale 7-10) Last Admin: 04/11/25 10:52 Dose: 4 mg Documented By: JIGNESH Naloxone HCl (Naloxone Hcl 0.4 Mg/Ml Vial) 0.04 mg IVPUSH Q5M PRN PRN Reason: Excessive sedation or RR < 8 Naloxone HCl (Naloxone Hcl 0.4 Mg/Ml Vial) 0.04 mg IVPUSH Q5M PRN PRN Reason: Excessive sedation or RR < 8 Omeprazole (Omeprazole 40 Mg Capsule.Dr) 40 mg PO DAILY@0630 [facility] Last Admin: 04/11/25 05:58 Dose: 40 mg Documented By: MISSY Ondansetron HCl (Ondansetron Hcl 4 Mg/2 Ml Vial) 4 mg IVPUSH Q8H PRN PRN Reason: Nausea and Vomiting Oxycodone HCl (Oxycodone Hcl Immed Release 5 Mg Tablet) 5 mg PO Q4H PRN PRN Reason: Pain, Mild 1-3,fever,headache Oxycodone HCl (Oxycodone Hcl Immed Release 5 Mg Tablet) 10 mg PO Q4H PRN PRN Reason: Pain, Moderate(Pain Scale 4-6) Last Admin: 04/10/25 19:38 Dose: 10 mg Documented By: MISSY Pharmacy Consult (Consult Rx Vancomycin Dosing) 1 each MISCELLANE DAILY PRN PRN Reason: Consult order Sodium Chloride (0.9 % Sodium Chloride Flush 3 Ml Syringe) [facility] Last Admin: 04/11/25 06:51 Dose: Not Given Documented By: JIGNESH Non-Admin Reason: IV Running Tamsulosin HCl (Tamsulosin Hcl 0.4 Mg Capsule) 0.4 mg PO BEDTIME [facility] Last Admin: 04/10/25 19:58 Dose: 0.4 mg Documented By: MISSY Labs 04/10/25 06:25 04/11/25 06:09 Labs: Laboratory Results - last 24 hr 04/11/25 06:09 Estim Creat Clear Calc 139.2 Estimated GFR > 60 Microbiology Microbiology Results: Microbiology 04/05/25 21:13 Blood Culture - Final Blood - Venous No growth after 5 days. 04/05/25 21:13 Blood Culture - Final Blood - Venous No growth after 5 days. Procedures Date of Service Date of Service: 04/11/25 Progress Note: A&P Assessment and plan (1) S/P cholecystectomy: Status: Acute Plan Patient is status post cholecystectomy for bad cholecystitis requiring laparoscopic converted to open cholecystectomy slow improvement. Ileus pattern in his doing better now with NPO. Plan to continue with mobilization walking NPO with ice chips. He is passing gas but once his abdomen becomes little more active then may at that point advance his diet. We will follow along with packing to be removed on Saturday from his incision. Continue with BRIDGER drain which just says serosanguineous fluid no bile Time Spent With Patient Time: Total time managing care of this patient today ____ minutes. Quality Stroke Does the patient have a stroke diagnosis?: No VTE Prior VTE?: No VTE Risk Level:: Medical - moderate - high VTE Device Contraindication: N/A - Device Ordered VTE Drug Contraindication: N/A - Med Ordered
--- NOTE | 2025-04-11 14:04 | HO.PM.IMPN ---
Subjective Subjective Date of Service: 04/11/25 Interval History: seen in f/u for med management Abdomen is less distended, no further ozzing BP is better Physical Exam Vital Signs: Vital Signs: Last Vital Signs Temp 97.6 F 04/11/25 07:41 Pulse 97 04/11/25 10:03 Resp 18 04/11/25 10:03 BP 149/83 H 04/11/25 10:03 Pulse Ox 94 04/11/25 07:41 O2 Del Method Room Air 04/11/25 07:41 O2 Flow Rate 2 04/10/25 15:45 BMI result Body Mass Index 34.8 Const: Other: General: AO X 3, mild discomfort in abd d/t distention, seems anxious Resp: CTA bilateral CVS: S1,S2,RRR GI: less distention, Skin: No rash Neuro: motor grossly intact Psych: appropriate affect Objective Data Active Medications Amlodipine Besylate (Amlodipine Besylate 10 Mg Tablet) 10 mg PO DAILY [facility]; Protocol Last Admin: 04/11/25 08:09 Dose: 10 mg Documented By: JIGNESH Benzocaine (Throat Lozenge, Medicated Lozenge) 1 lozenge MUCOUS MEM Q2H PRN PRN Reason: Sore Throat Last Admin: 04/08/25 09:16 Dose: 1 lozenge Documented By: YESSY Brimonidine Tartrate (Brimonidine Tartrate 0.2% Oph 5 Ml Bottle) 1 drop EYE-BOTH BID [facility] Last Admin: 04/11/25 08:13 Dose: 1 drop Documented By: JIGNESH Calcium Carbonate (Calcium Carbonate 750 Mg Tab.Chew) 750 mg PO Q4H PRN PRN Reason: Heartburn Diazepam (Diazepam 10 Mg/2 Ml Cartridge) 10 mg IVPUSH Q4H PRN PRN Reason: Anxiety Last Admin: 04/07/25 23:17 Dose: 10 mg Documented By: INDIRA Dorzolamide HCl (Dorzolamide Hcl 2 % Ophth Aminah 10 Ml Drpbtl) 1 drop EYE-BOTH BID [facility] Last Admin: 04/11/25 08:11 Dose: 1 drop Documented By: JIGNESH Ferrous Sulfate (Ferrous Sulfate 324 Mg Tablet.Dr) 324 mg PO DAILY [facility] Last Admin: 04/11/25 08:09 Dose: 324 mg Documented By: JIGNESH Finasteride (Finasteride 5 Mg Tablet) 5 mg PO DAILY [facility] Last Admin: 04/11/25 08:09 Dose: 5 mg Documented By: JIGNESH Heparin Sodium (Porcine) (Heparin Sodium,Porcine 5,000 Unit/Ml Vial) 5,000 unit SUBCUT Q12H [facility] Last Admin: 04/11/25 08:21 Dose: Not Given Documented By: JIGNESH Non-Admin Reason: HOLD PER Hydralazine HCl (Hydralazine Hcl 20 Mg/Ml Vial) 10 mg IVPUSH Q6H PRN; Protocol PRN Reason: SBP > 160 Last Admin: 04/04/25 13:46 Dose: 10 mg Documented By: COLBURSadi Hydroxyzine HCl (Hydroxyzine Hcl 25 Mg Tablet) 25 mg PO BEDTIME PRN PRN Reason: Insomnia Lactated Ringer's (Lr) 1,000 mls @ 100 mls/hr IVCONT .Q10H [facility] Last Infusion: 04/11/25 13:31 Dose: 0 mls/hr Documented By: JIGNESH Vancomycin HCl 1,500 mg/ (Sodium Chloride) 500 mls @ 333.333 mls/hr IV Q12H [facility] Last Infusion: 04/11/25 11:37 Dose: Infused Documented By: JIGNESH Piperacillin Sod/Tazobactam (Sod 3.375 gm/ Sodium Chloride) 50 mls @ 100 mls/hr IV Q6H [facility] Last Admin: 04/11/25 13:30 Dose: 100 mls/hr Documented By: JIGNESH Acetaminophen (Ofirmev) 1,000 mg in 100 mls @ 400 mls/hr IV Q6H [facility] Lisinopril (Lisinopril 20 Mg Tablet) 20 mg PO DAILY [facility]; Protocol Last Admin: 04/11/25 08:09 Dose: 20 mg Documented By: JIGNESH Magnesium Hydroxide (Milk Of Magnesia 30 Ml Oral.Susp) 30 ml PO DAILY PRN PRN Reason: Constipation Last Admin: 04/09/25 19:38 Dose: 30 ml Documented By: ELIANA Melatonin (Melatonin 3 Mg Tablet) 6 mg PO BEDTIME PRN PRN Reason: Insomnia Metoprolol Succinate (Metoprolol Succinate Er 50 Mg Tab.Er.24h) 50 mg PO DAILY [facility]; Protocol Last Admin: 04/11/25 08:09 Dose: 50 mg Documented By: JIGNESH Morphine Sulfate (Morphine Sulfate 4 Mg/Ml Cartridge) 4 mg IVPUSH Q4H PRN; Protocol PRN Reason: Pain, Severe (Pain Scale 7-10) Last Admin: 04/11/25 10:52 Dose: 4 mg Documented By: JIGNESH Naloxone HCl (Naloxone Hcl 0.4 Mg/Ml Vial) 0.04 mg IVPUSH Q5M PRN PRN Reason: Excessive sedation or RR < 8 Naloxone HCl (Naloxone Hcl 0.4 Mg/Ml Vial) 0.04 mg IVPUSH Q5M PRN PRN Reason: Excessive sedation or RR < 8 Omeprazole (Omeprazole 40 Mg Capsule.Dr) 40 mg PO DAILY@0630 [facility] Last Admin: 04/11/25 05:58 Dose: 40 mg Documented By: MISSY Ondansetron HCl (Ondansetron Hcl 4 Mg/2 Ml Vial) 4 mg IVPUSH Q8H PRN PRN Reason: Nausea and Vomiting Oxycodone HCl (Oxycodone Hcl Immed Release 5 Mg Tablet) 5 mg PO Q4H PRN PRN Reason: Pain, Mild 1-3,fever,headache Oxycodone HCl (Oxycodone Hcl Immed Release 5 Mg Tablet) 10 mg PO Q4H PRN PRN Reason: Pain, Moderate(Pain Scale 4-6) Last Admin: 04/10/25 19:38 Dose: 10 mg Documented By: MISSY Pharmacy Consult (Consult Rx Vancomycin Dosing) 1 each MISCELLANE DAILY PRN PRN Reason: Consult order Sodium Chloride (0.9 % Sodium Chloride Flush 3 Ml Syringe) 3 ml IVFLUSH QSHIFT [facility] Last Admin: 04/11/25 06:51 Dose: Not Given Documented By: JIGNESH Non-Admin Reason: IV Running Tamsulosin HCl (Tamsulosin Hcl 0.4 Mg Capsule) 0.4 mg PO BEDTIME [facility] Last Admin: 04/10/25 19:58 Dose: 0.4 mg Documented By: MISSY Labs 04/10/25 06:25 04/11/25 06:09 Labs: Laboratory Results - last 24 hr 04/11/25 06:09 Estim Creat Clear Calc 139.2 Estimated GFR > 60 Microbiology Microbiology Results: Microbiology 04/05/25 21:13 Blood Culture - Final Blood - Venous No growth after 5 days. 04/05/25 21:13 Blood Culture - Final Blood - Venous No growth after 5 days. 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 Hospitalist group consulted per Dr. Navas for management of hypertension. Currently it is felt that hypertension is related to patient's symptoms of persistent nausea with vomiting. Nursing is following through on plan to place NG tube to help relieve patient's symptoms. 1. Hypertension, BP is better continue present meds 2. Small-bowel obstruction -Management per General surgery empiric zosyn, vanco 3. Sob, likely related to abd distention, and is better today 3.GERD -omeprazole 4. glaucoma, eye drops 5 We will follow Quality Stroke Does the patient have a stroke diagnosis?: No VTE Prior VTE?: No VTE Risk Level:: Medical - moderate - high VTE Device Contraindication: N/A - Device Ordered VTE Drug Contraindication: N/A - Med Ordered
[2025-04-11 15:55] VITALS: BP 170/90; PULSE 100; RESP 18; TEMP 37.1; O2SAT 94
[2025-04-11] MEDS: 0.9 % Sodium Chloride Flush 3 ML SYRINGE IVFLUSH (19:45)
--- NOTE | 2025-04-11 21:37 | HE.PHANOTE ---
RE: VANCO DOSING Trough came back as 15 mg/L, renal function is stable. Continue with dose 1500 mg q12h, next trough is scheduled for 04/12/25 @2100.
[2025-04-12] VITALS: BP 141/84; PULSE 98; RESP 18; TEMP 36.9; O2SAT 94
[2025-04-12] MEDS: Lactated Ringers 1,000 ML 100 ML IVCONT (04:54)
--- NOTE | 2025-04-12 07:45 | P.PNGS_ITS ---
Subjective Subjective Date of Service: 04/12/25 <Juan Burkett PA-C - Last Filed: 04/12/25 07:59> 04/12/25 <Carlos Navas MD - Last Filed: 04/12/25 08:23> Interval history: pain improving. Breathing better but still feels like his abdomen is making it harder to breath. Denies nausea, vomiting, fever, chills. Passing lots of gas, but denies any bowel movement. Hes been up and walking. Very hungry. < Juan Burkett PA-C - Last Filed: 04/12/25 07:59> Physical Exam 2 Vital Signs: Vital Signs: Last Vital Signs Temp 98.4 F 04/12/25 00:00 Pulse 98 04/12/25 00:00 Resp 18 04/12/25 00:00 BP 141/84 H 04/12/25 00:00 Pulse Ox 94 04/12/25 00:00 O2 Del Method Room Air 04/12/25 00:00 O2 Flow Rate 2 04/10/25 15:45 BMI result Body Mass Index 34.8 <Juan Burkett PA-C - Last Filed: 04/12/25 07:59> Const: General: comfortable and no acute distress <DENVER Hanley Last Filed: 04/12/25 07:59> Orientation/consciousness: patient oriented x3 <DENVER Hanley Last Filed: 04/12/25 07:59> Resp: Other: Increased work of breathing <Juan Burkett PA-C - Last Filed: 04/12/25 07:59> Effort & Inspection: able to speak in complete sentences <Juan Burkett PA-C - Last Filed: 04/12/25 07:59> GI: Other: Medial aspect of right upper quadrant incision packing in place, removed. Appears serosanguineous. Bob in place. BRIDGER drain in place output scant serosanguineous <DENVER Hanley Last Filed: 04/12/25 07:59> Inspection: Yes distended (moderate) <DENVER Hanley Last Filed: 04/12/25 07:59> Palpation (GI): Soft to palpation, Tenderness to palpation present (GI) (mild, RUQ), no guarding and not rigid <Juan Burktet PA-C - Last Filed: 04/12/25 07:59> Percussion: Yes tympanic to percussion <Juan Burkett PA-C - Last Filed: 04/12/25 07:59> Neuro: General: patient oriented x3 <Juan Burkett PA-C - Last Filed: 04/12/25 07:59> Objective Data Active Medications Amlodipine Besylate (Amlodipine Besylate 10 Mg Tablet) 10 mg PO DAILY [facility]; Protocol Last Admin: 04/11/25 08:09 Dose: 10 mg Documented By: JIGNESH Benzocaine (Throat Lozenge, Medicated Lozenge) 1 lozenge MUCOUS MEM Q2H PRN PRN Reason: Sore Throat Last Admin: 04/08/25 09:16 Dose: 1 lozenge Documented By: YESSY Brimonidine Tartrate (Brimonidine Tartrate 0.2% Oph 5 Ml Bottle) 1 drop EYE- BOTH BID [facility] Last Admin: 04/11/25 21:11 Dose: Not Given Documented By: MISSY Non-Admin Reason: Patient Refused Calcium Carbonate (Calcium Carbonate 750 Mg Tab.Chew) 750 mg PO Q4H PRN PRN Reason: Heartburn Diazepam (Diazepam 10 Mg/2 Ml Cartridge) 10 mg IVPUSH Q4H PRN PRN Reason: Anxiety Last Admin: 04/07/25 23:17 Dose: 10 mg Documented By: INDIRA Dorzolamide HCl (Dorzolamide Hcl 2 % Ophth Aminah 10 Ml Drpbtl) 1 drop EYE-BOTH BID [facility] Last Admin: 04/11/25 21:11 Dose: Not Given Documented By: MISSY Non-Admin Reason: Patient Refused Ferrous Sulfate (Ferrous Sulfate 324 Mg Tablet.Dr) 324 mg PO DAILY [facility] Last Admin: 04/11/25 08:09 Dose: 324 mg Documented By: JIGNESH Finasteride (Finasteride 5 Mg Tablet) 5 mg PO DAILY [facility] Last Admin: 04/11/25 08:09 Dose: 5 mg Documented By: JIGNESH Heparin Sodium (Porcine) (Heparin Sodium,Porcine 5,000 Unit/Ml Vial) 5,000 unit SUBCUT Q12H [facility] Last Admin: 04/11/25 20:30 Dose: Not Given Documented By: MISSY Non-Admin Reason: Physician Held Med Hydralazine HCl (Hydralazine Hcl 20 Mg/Ml Vial) 10 mg IVPUSH Q6H PRN; Protocol PRN Reason: SBP > 160 Last Admin: 04/04/25 13:46 Dose: 10 mg Documented By: DENIA Hydroxyzine HCl (Hydroxyzine Hcl 25 Mg Tablet) 25 mg PO BEDTIME PRN PRN Reason: Insomnia Vancomycin HCl 1,500 mg/ (Sodium Chloride) 500 mls @ 333.333 mls/hr IV Q12H [facility] Last Infusion: 04/12/25 00:44 Dose: Infused Documented By: ELIANA Piperacillin Sod/Tazobactam (Sod 3.375 gm/ Sodium Chloride) 50 mls @ 100 mls/hr IV Q6H [facility] Last Infusion: 04/12/25 02:17 Dose: Infused Documented By: MISSY Acetaminophen (Ofirmev) 1,000 mg in 100 mls @ 400 mls/hr IV Q6H [facility] Last Infusion: 04/12/25 03:38 Dose: Infused Documented By: MISSY Lactated Ringer's (Lr) 1,000 mls @ 100 mls/hr IVCONT .Q10H [facility] Stop: 04/12/25 14:44 Last Admin: 04/12/25 04:54 Dose: 100 mls/hr Documented By: MISSY Lisinopril (Lisinopril 20 Mg Tablet) 20 mg PO DAILY [facility]; Protocol Last Admin: 04/11/25 08:09 Dose: 20 mg Documented By: JIGNESH Magnesium Hydroxide (Milk Of Magnesia 30 Ml Oral.Susp) 30 ml PO DAILY PRN PRN Reason: Constipation Last Admin: 04/09/25 19:38 Dose: 30 ml Documented By: ELIANA Melatonin (Melatonin 3 Mg Tablet) 6 mg PO BEDTIME PRN PRN Reason: Insomnia Metoprolol Succinate (Metoprolol Succinate Er 50 Mg Tab.Er.24h) 50 mg PO DAILY [facility]; Protocol Last Admin: 04/11/25 08:09 Dose: 50 mg Documented By: JIGNESH Morphine Sulfate (Morphine Sulfate 4 Mg/Ml Cartridge) 4 mg IVPUSH Q4H PRN; Protocol PRN Reason: Pain, Severe (Pain Scale 7-10) Last Admin: 04/12/25 02:29 Dose: 4 mg Documented By: MISSY Naloxone HCl (Naloxone Hcl 0.4 Mg/Ml Vial) 0.04 mg IVPUSH Q5M PRN PRN Reason: Excessive sedation or RR < 8 Naloxone HCl (Naloxone Hcl 0.4 Mg/Ml Vial) 0.04 mg IVPUSH Q5M PRN PRN Reason: Excessive sedation or RR < 8 Omeprazole (Omeprazole 40 Mg Capsule.Dr) 40 mg PO DAILY@0630 [facility] Last Admin: 04/12/25 05:41 Dose: 40 mg Documented By: MISSY Ondansetron HCl (Ondansetron Hcl 4 Mg/2 Ml Vial) 4 mg IVPUSH Q8H PRN PRN Reason: Nausea and Vomiting Oxycodone HCl (Oxycodone Hcl Immed Release 5 Mg Tablet) 5 mg PO Q4H PRN PRN Reason: Pain, Mild 1-3,fever,headache Oxycodone HCl (Oxycodone Hcl Immed Release 5 Mg Tablet) 10 mg PO Q4H PRN PRN Reason: Pain, Moderate(Pain Scale 4-6) Last Admin: 04/10/25 19:38 Dose: 10 mg Documented By: MISSY Pharmacy Consult (Consult Rx Vancomycin Dosing) 1 each MISCELLANE DAILY PRN PRN Reason: Consult order Sodium Chloride (0.9 % Sodium Chloride Flush 3 Ml Syringe) 3 ml IVFLUSH QSHIFT [facility] Last Admin: 04/11/25 19:45 Dose: 3 ml Documented By: MISSY Tamsulosin HCl (Tamsulosin Hcl 0.4 Mg Capsule) 0.4 mg PO BEDTIME [facility] Last Admin: 04/11/25 21:07 Dose: 0.4 mg Documented By: MISSY <Juan Burkett PA-C - Last Filed: 04/12/25 07:59> Labs CBC & Chem 7: 04/10/25 06:25 04/12/25 07:03 <Juan Burkett PA-C - Last Filed: 04/12/25 07:59> Labs: Laboratory Results - last 24 hr 04/11/25 21:05 Vancomycin Trough 15.0 <Juan Burkett PA-C - Last Filed: 04/12/25 07:59> Procedures Date of Service Date of Service: 04/12/25 <Juan Burkett PA-C - Last Filed: 04/12/25 07:59> 04/12/25 <Carlos Navas MD - Last Filed: 04/12/25 08:23> Progress Note: A&P Assessment and plan (1) S/P cholecystectomy: Status: Acute <Juan Burkett PA-C - Last Filed: 04/12/25 07:59> Assessment and Plan: Denies nausea or vomiting Abdominal pain and tenderness seems better Dressings changed BRIDGER drain scanty Okay to restart clear liquids today Ambulate Colace for constipation Clinically looks well overall Seen and examined independently We will discuss with family <Carlos Navas MD - Last Filed: 04/12/25 08:23> Assessment and Plan: 70-year-old male postop day 5 s/p open cholecystectomy. Patient now NPO due to distention of the weekend, difficulty breathing secondary to distention. Feeling some improvement today, reports minimal pain. Continues to have some difficulty breathing although this is improved. He is passing flatus, has not passed bowel movement at this point we will try adding Colace b.i.d. as needed. Also recommended ambulating as much as tolerated. We also discussed reducing narcotic load. Patient understands, states pain is less so we will try nonnarcotic pain medications during waking hours. On exam his abdomen remains moderately distended, tympanic to percussion. Abdomen is soft. Mildly tender in the right upper quadrant. Right upper quadrant incision, packing at the midline and of the incision with some oozing onto the gauze. I removed the packing was able to facilitate serosanguineous drainage. The incision otherwise looks clean and dry, no surrounding erythema no purulence. BRIDGER drain is scant serosanguineous output, 30 cc last 24 hours. Will advance diet to clears. Add Colace b.i.d. as needed for constipation Ambulation as tolerated. BRIDGER drain will stay in place for now, can likely be removed prior to discharge < Juan Burkett PA-C - Last Filed: 04/12/25 07:59> Time Spent With Patient Time: Total time managing care of this patient today ____ minutes. <Juan Burkett PA-C - Last Filed: 04/12/25 07:59> Quality Stroke Does the patient have a stroke diagnosis?: No <Juan Burkett PA-C - Last Filed: 04/12/25 07:59> VTE Prior VTE?: No <Juan Burkett PA-C - Last Filed: 04/12/25 07:59> VTE Risk Level:: Medical - moderate - high <Juan Burkett PA-C - Last Filed: 04/12/25 07:59> VTE Device Contraindication: N/A - Device Ordered <Juan Burkett PA-C - Last Filed: 04/12/25 07:59> VTE Drug Contraindication: N/A - Med Ordered <Juan Burkett PA-C - Last Filed: 04/12/25 07:59>
[2025-04-12 07:53] LABS: Creatinine Clr Calc Pharmacy 135.1; Estimated Glomerular Filt Rate > 60
[2025-04-12 07:56] VITALS: BP 167/77; PULSE 96; RESP 17; TEMP 36.2; O2SAT 96
[2025-04-12] MEDS: Ferrous Sulfate 324 MG TABLET.DR PO (08:14)
[2025-04-12] MEDS: Metoprolol Succinate ER 50 MG TAB.ER.24H PO (08:14)
--- NOTE | 2025-04-12 10:49 | HO.PM.IMPN ---
Subjective Subjective Date of Service: 04/12/25 Interval History: f/u on med consult, BP still elevated, abdominal discomfort is much better, tolerating liquid diet Physical Exam Vital Signs: Vital Signs: Last Vital Signs Temp 97.1 F 04/12/25 07:56 Pulse 96 04/12/25 07:56 Resp 17 04/12/25 07:56 BP 167/77 H 04/12/25 07:56 Pulse Ox 96 04/12/25 07:56 O2 Del Method Room Air 04/12/25 07:56 O2 Flow Rate 2 04/10/25 15:45 BMI result Body Mass Index 34.8 Const: Other: General: AO X 3, mild discomfort in abd d/t distention, seems anxious Resp: CTA bilateral CVS: S1,S2,RRR GI: less distention, Skin: No rash Neuro: motor grossly intact Psych: appropriate affect Objective Data Active Medications Amlodipine Besylate (Amlodipine Besylate 10 Mg Tablet) 10 mg PO DAILY [facility]; Protocol Last Admin: 04/12/25 08:14 Dose: 10 mg Documented By: GABBY Benzocaine (Throat Lozenge, Medicated Lozenge) 1 lozenge MUCOUS MEM Q2H PRN PRN Reason: Sore Throat Last Admin: 04/08/25 09:16 Dose: 1 lozenge Documented By: YESSY Brimonidine Tartrate (Brimonidine Tartrate 0.2% Oph 5 Ml Bottle) 1 drop EYE-BOTH BID [facility] Last Admin: 04/11/25 21:11 Dose: Not Given Documented By: MISSY Non-Admin Reason: Patient Refused Calcium Carbonate (Calcium Carbonate 750 Mg Tab.Chew) 750 mg PO Q4H PRN PRN Reason: Heartburn Diazepam (Diazepam 10 Mg/2 Ml Cartridge) 10 mg IVPUSH Q4H PRN PRN Reason: Anxiety Last Admin: 04/07/25 23:17 Dose: 10 mg Documented By: INDIRA Docusate Sodium (Docusate Sodium 100 Mg Capsule) 100 mg PO BID PRN PRN Reason: Constipation Dorzolamide HCl (Dorzolamide Hcl 2 % Ophth Aminah 10 Ml Drpbtl) 1 drop EYE-BOTH BID [facility] Last Admin: 04/11/25 21:11 Dose: Not Given Documented By: MISSY Non-Admin Reason: Patient Refused Ferrous Sulfate (Ferrous Sulfate 324 Mg Tablet.) 324 mg PO DAILY [facility] Last Admin: 04/12/25 08:14 Dose: 324 mg Documented By: GABBY Finasteride (Finasteride 5 Mg Tablet) 5 mg PO DAILY [facility] Last Admin: 04/12/25 08:14 Dose: 5 mg Documented By: GABBY Heparin Sodium (Porcine) (Heparin Sodium,Porcine 5,000 Unit/Ml Vial) 5,000 unit SUBCUT Q12H [facility] Last Admin: 04/11/25 20:30 Dose: Not Given Documented By: MISSY Non-Admin Reason: Physician Held Med Hydralazine HCl (Hydralazine Hcl 20 Mg/Ml Vial) 10 mg IVPUSH Q6H PRN; Protocol PRN Reason: SBP > 160 Last Admin: 04/04/25 13:46 Dose: 10 mg Documented By: DENIA Hydroxyzine HCl (Hydroxyzine Hcl 25 Mg Tablet) 25 mg PO BEDTIME PRN PRN Reason: Insomnia Vancomycin HCl 1,500 mg/ (Sodium Chloride) 500 mls @ 333.333 mls/hr IV Q12H [facility] Last Infusion: 04/12/25 00:44 Dose: Infused Documented By: ELIANA Piperacillin Sod/Tazobactam (Sod 3.375 gm/ Sodium Chloride) 50 mls @ 100 mls/hr IV Q6H [facility] Last Infusion: 04/12/25 09:03 Dose: Infused Documented By: GABBY Acetaminophen (Ofirmev) 1,000 mg in 100 mls @ 400 mls/hr IV Q6H [facility] Last Infusion: 04/12/25 09:03 Dose: Infused Documented By: GABBY Lactated Ringer's (Lr) 1,000 mls @ 100 mls/hr IVCONT .Q10H [facility] Stop: 04/12/25 14:44 Last Admin: 04/12/25 04:54 Dose: 100 mls/hr Documented By: MISSY Lisinopril (Lisinopril 20 Mg Tablet) 20 mg PO DAILY [facility]; Protocol Last Admin: 04/12/25 08:15 Dose: 20 mg Documented By: GABBY Magnesium Hydroxide (Milk Of Magnesia 30 Ml Oral.Susp) 30 ml PO DAILY PRN PRN Reason: Constipation Last Admin: 04/09/25 19:38 Dose: 30 ml Documented By: ELIANA Melatonin (Melatonin 3 Mg Tablet) 6 mg PO BEDTIME PRN PRN Reason: Insomnia Metoprolol Succinate (Metoprolol Succinate Er 50 Mg Tab.Er.24h) 50 mg PO DAILY [facility]; Protocol Last Admin: 04/12/25 08:14 Dose: 50 mg Documented By: GABBY Morphine Sulfate (Morphine Sulfate 4 Mg/Ml Cartridge) 4 mg IVPUSH Q4H PRN; Protocol PRN Reason: Pain, Severe (Pain Scale 7-10) Last Admin: 04/12/25 08:31 Dose: 4 mg Documented By: GABBY Naloxone HCl (Naloxone Hcl 0.4 Mg/Ml Vial) 0.04 mg IVPUSH Q5M PRN PRN Reason: Excessive sedation or RR < 8 Naloxone HCl (Naloxone Hcl 0.4 Mg/Ml Vial) 0.04 mg IVPUSH Q5M PRN PRN Reason: Excessive sedation or RR < 8 Omeprazole (Omeprazole 40 Mg Capsule.Dr) 40 mg PO DAILY@0630 [facility] Last Admin: 04/12/25 05:41 Dose: 40 mg Documented By: MISSY Ondansetron HCl (Ondansetron Hcl 4 Mg/2 Ml Vial) 4 mg IVPUSH Q8H PRN PRN Reason: Nausea and Vomiting Oxycodone HCl (Oxycodone Hcl Immed Release 5 Mg Tablet) 5 mg PO Q4H PRN PRN Reason: Pain, Mild 1-3,fever,headache Oxycodone HCl (Oxycodone Hcl Immed Release 5 Mg Tablet) 10 mg PO Q4H PRN PRN Reason: Pain, Moderate(Pain Scale 4-6) Last Admin: 04/10/25 19:38 Dose: 10 mg Documented By: MISSY Pharmacy Consult (Consult Rx Vancomycin Dosing) 1 each MISCELLANE DAILY PRN PRN Reason: Consult order Sodium Chloride (0.9 % Sodium Chloride Flush 3 Ml Syringe) 3 ml IVFLUSH [facility] Last Admin: 04/12/25 08:14 Dose: Not Given Documented By: GABBY Non-Admin Reason: IV Running Tamsulosin HCl (Tamsulosin Hcl 0.4 Mg Capsule) 0.4 mg PO BEDTIME [facility] Last Admin: 04/11/25 21:07 Dose: 0.4 mg Documented By: MISSY Labs 04/10/25 06:25 04/12/25 07:03 Labs: Laboratory Results - last 24 hr 04/11/25 04/12/25 21:05 07:03 Estim Creat Clear Calc 135.1 Estimated GFR > 60 Vancomycin Trough 15.0 Microbiology Microbiology Results: Microbiology 04/05/25 21:13 Blood Culture - Final Blood - Venous No growth after 5 days. 04/05/25 21:13 Blood Culture - Final Blood - Venous No growth after 5 days. 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 Hospitalist group consulted per Dr. Navas for management of hypertension. Currently it is felt that hypertension is related to patient's symptoms of persistent nausea with vomiting. Nursing is following through on plan to place NG tube to help relieve patient's symptoms. 1. Hypertension, BP still high continue toprolol and norvasc, increase lisinopril to 30, continue present meds 2. Small-bowel obstruction -Management per General surgery empiric soco corbett 3. Sob, likely related to abd distention, and is better today 3.GERD -omeprazole 4. glaucoma, eye drops 5 We will follow Quality Stroke Does the patient have a stroke diagnosis?: No VTE Prior VTE?: No VTE Risk Level:: Medical - moderate - high VTE Device Contraindication: N/A - Device Ordered VTE Drug Contraindication: N/A - Med Ordered
[2025-04-12] MEDS: Dorzolamide HCl 2 % Ophth Sol 10 ML DRPBTL 1 DROP EYE-BOTH (11:27)
[2025-04-12] MEDS: Brimonidine Tartrate 0.2% Oph 5 ML BOTTLE 1 DROP EYE-BOTH (11:27)
[2025-04-12 15:41] VITALS: BP 151/69; PULSE 99; RESP 18; TEMP 37.1; O2SAT 95
[2025-04-12 20:40] VITALS: BP 175/83; PULSE 110; RESP 16; TEMP 36.4; O2SAT 94
[2025-04-12 21:06] VITALS: BP 180/94
[2025-04-12] MEDS: guaiFEN/Codeine SF 200/20/10ML 10 ML LIQUID PO (21:52)
[2025-04-12 22:06] VITALS: BP 143/54
[2025-04-13] VITALS (7 sets, daily range): BP systolic 138–157; BP diastolic 69–81; PULSE 94–100; RESP 16–19; TEMP 36.2–36.8; O2SAT 92–99
[2025-04-13] MEDS: 0.9 % Sodium Chloride Flush 3 ML SYRINGE IVFLUSH ×4 (00:16→21:24)
[2025-04-13 07:07] LABS: Creatinine Clr Calc Pharmacy 146.0; Estimated Glomerular Filt Rate > 60
--- NOTE | 2025-04-13 07:19 | PC.NURSE ---
1899: Pt found in bed in some discomfort reporting pain at 7/10, ambulated in the jacome with family, with walker. 1929: pain medication given per OCT. 2109: BP checked at 180/94, hydralazine given per OCT, Dr. Hughes made aware, with good effect, 143/54 when rechecked. 2119: pt reporting a dry cough, Dr. Hughes made aware and new orders placed, with good effect, and pt sleeping comfortably.
--- NOTE | 2025-04-13 07:50 | P.PNGS_ITS ---
Subjective Subjective Date of Service: 04/13/25 <Juan Burkett PA-C - Last Filed: 04/13/25 07:57> 04/13/25 <Carlos Navas MD - Last Filed: 04/13/25 11:19> Interval history: feels a little better today. pain is unchanged, some mild pain on the RUQ. feels less bloated. passing gas, but has not passed bm. Corona like he was going to pass a Bm yeserday but was unable to do so. denies fever or chills. denies nausea or vomiting. tolerated clear liquids yesterday, would like to try solids. ambulating in room to chair and bathroom <Juan Burkett PA-C - Last Filed: 04/13/25 07:57> Physical Exam 2 Vital Signs: Vital Signs: Last Vital Signs Temp 97.3 F 04/13/25 07:18 Pulse 94 04/13/25 07:18 Resp 16 04/13/25 07:18 BP 138/69 04/13/25 07:18 Pulse Ox 99 04/13/25 07:18 O2 Del Method Room Air 04/13/25 07:18 O2 Flow Rate 2 04/10/25 15:45 BMI result Body Mass Index 34.8 <DENVER Hanley Last Filed: 04/13/25 07:57> Const: General: comfortable and no acute distress <Juan Burkett PA-C - Last Filed: 04/13/25 07:57> Orientation/consciousness: patient oriented x3 <Juan Burkett PA-C - Last Filed: 04/13/25 07:57> Resp: Effort & Inspection: normal respiratory effort and able to speak in complete sentences <Juan Burkett PA-C - Last Filed: 04/13/25 07:57> GI: Other: ed in place, serosanguenious. 40 cc overnight ISABELA incision remains open on the midline aspect, able to express scant dark blood. No purulence noted <DENVER Hanley Last Filed: 04/13/25 07:57> Inspection: Yes distended (mild/mod improved from yesterday) <DENVER Hanley Last Filed: 04/13/25 07:57> Palpation (GI): Soft to palpation, not firm, Tenderness to palpation present (GI) in the RUQ, no guarding and not rigid <Juan Burkett PA-C - Last Filed: 04/13/25 07:57> Percussion: Yes tympanic to percussion (epigastric) <Juan Burkett PA-C - Last Filed: 04/13/25 07:57> Neuro: General: patient oriented x3 <Juan Burkett PA-C - Last Filed: 04/13/25 07:57> Objective Data Active Medications Amlodipine Besylate (Amlodipine Besylate 10 Mg Tablet) 10 mg PO DAILY [facility]; Protocol Last Admin: 04/12/25 08:14 Dose: 10 mg Documented By: GABBY Benzocaine (Throat Lozenge, Medicated Lozenge) 1 lozenge MUCOUS MEM Q2H PRN PRN Reason: Sore Throat Last Admin: 04/08/25 09:16 Dose: 1 lozenge Documented By: YESSY Brimonidine Tartrate (Brimonidine Tartrate 0.2% Oph 5 Ml Bottle) 1 drop EYE- BOTH BID [facility] Last Admin: 04/12/25 22:19 Dose: Not Given Documented By: INDIRA Non-Admin Reason: Patient Refused Calcium Carbonate (Calcium Carbonate 750 Mg Tab.Chew) 750 mg PO Q4H PRN PRN Reason: Heartburn Diazepam (Diazepam 10 Mg/2 Ml Cartridge) 10 mg IVPUSH Q4H PRN PRN Reason: Anxiety Last Admin: 04/07/25 23:17 Dose: 10 mg Documented By: INDIRA Docusate Sodium (Docusate Sodium 100 Mg Capsule) 100 mg PO BID PRN PRN Reason: Constipation Dorzolamide HCl (Dorzolamide Hcl 2 % Ophth Aminah 10 Ml Drpbtl) 1 drop EYE-BOTH BID [facility] Last Admin: 04/12/25 22:19 Dose: Not Given Documented By: INDIRA Non-Admin Reason: Patient Refused Ferrous Sulfate (Ferrous Sulfate 324 Mg Tablet.Dr) 324 mg PO DAILY [facility] Last Admin: 04/12/25 08:14 Dose: 324 mg Documented By: GABBY Finasteride (Finasteride 5 Mg Tablet) 5 mg PO DAILY [facility] Last Admin: 04/12/25 08:14 Dose: 5 mg Documented By: GABBY Guaifenesin/Codeine Phosphate (Guaifen/Codeine Sf 200/20/10ml 10 Ml Liquid) 10 ml PO Q6H PRN PRN Reason: Cough Last Admin: 04/12/25 21:52 Dose: 10 ml Documented By: INDIRA Heparin Sodium (Porcine) (Heparin Sodium,Porcine 5,000 Unit/Ml Vial) 5,000 unit SUBCUT Q12H [facility] Last Admin: 04/12/25 21:52 Dose: Not Given Documented By: INDIRA Non-Admin Reason: Patient Refused Hydralazine HCl (Hydralazine Hcl 20 Mg/Ml Vial) 10 mg IVPUSH Q6H PRN; Protocol PRN Reason: SBP > 160 Last Admin: 04/12/25 21:06 Dose: 10 mg Documented By: INDIRA Hydroxyzine HCl (Hydroxyzine Hcl 25 Mg Tablet) 25 mg PO BEDTIME PRN PRN Reason: Insomnia Piperacillin Sod/Tazobactam (Sod 3.375 gm/ Sodium Chloride) 50 mls @ 100 mls/hr IV Q6H [facility] Last Infusion: 04/13/25 02:12 Dose: Infused Documented By: INDIRA Acetaminophen (Ofirmev) 1,000 mg in 100 mls @ 400 mls/hr IV Q6H [facility] Last Infusion: 04/13/25 04:17 Dose: Infused Documented By: INDIRA Lisinopril (Lisinopril 10 Mg Tablet) 30 mg PO DAILY [facility]; Protocol Magnesium Hydroxide (Milk Of Magnesia 30 Ml Oral.Susp) 30 ml PO DAILY PRN PRN Reason: Constipation Last Admin: 04/09/25 19:38 Dose: 30 ml Documented By: ELIANA Melatonin (Melatonin 3 Mg Tablet) 6 mg PO BEDTIME PRN PRN Reason: Insomnia Metoprolol Succinate (Metoprolol Succinate Er 50 Mg Tab.Er.24h) 50 mg PO DAILY [facility]; Protocol Last Admin: 04/12/25 08:14 Dose: 50 mg Documented By: GABBY Morphine Sulfate (Morphine Sulfate 4 Mg/Ml Cartridge) 4 mg IVPUSH Q4H PRN; Protocol PRN Reason: Pain, Severe (Pain Scale 7-10) Last Admin: 04/13/25 02:17 Dose: 4 mg Documented By: INDIRA Naloxone HCl (Naloxone Hcl 0.4 Mg/Ml Vial) 0.04 mg IVPUSH Q5M PRN PRN Reason: Excessive sedation or RR < 8 Naloxone HCl (Naloxone Hcl 0.4 Mg/Ml Vial) 0.04 mg IVPUSH Q5M PRN PRN Reason: Excessive sedation or RR < 8 Omeprazole (Omeprazole 40 Mg Capsule.) 40 mg PO DAILY@0630 [facility] Last Admin: 04/13/25 05:56 Dose: 40 mg Documented By: INDIRA Ondansetron HCl (Ondansetron Hcl 4 Mg/2 Ml Vial) 4 mg IVPUSH Q8H PRN PRN Reason: Nausea and Vomiting Oxycodone HCl (Oxycodone Hcl Immed Release 5 Mg Tablet) 5 mg PO Q4H PRN PRN Reason: Pain, Mild 1-3,fever,headache Oxycodone HCl (Oxycodone Hcl Immed Release 5 Mg Tablet) 10 mg PO Q4H PRN PRN Reason: Pain, Moderate(Pain Scale 4-6) Last Admin: 04/10/25 19:38 Dose: 10 mg Documented By: MISSY Pharmacy Consult (Consult Rx Vancomycin Dosing) 1 each MISCELLANE DAILY PRN PRN Reason: Consult order Sodium Chloride (0.9 % Sodium Chloride Flush 3 Ml Syringe) 3 ml IVFLUSH QSHIFT [facility] Last Admin: 04/13/25 00:16 Dose: 3 ml Documented By: INDIRA Tamsulosin HCl (Tamsulosin Hcl 0.4 Mg Capsule) 0.4 mg PO BEDTIME [facility] Last Admin: 04/12/25 20:35 Dose: 0.4 mg Documented By: INDIRA <Juan Burkett PA-C - Last Filed: 04/13/25 07:57> Labs CBC & Chem 7: 04/10/25 06:25 04/13/25 05:48 <Juan Burkett PA-C - Last Filed: 04/13/25 07:57> Labs: Laboratory Results - last 24 hr 04/12/25 04/12/25 04/13/25 07:03 20:55 05:48 Hold Purple Top SEE NOTE Estim Creat Clear Calc 135.1 146.0 Estimated GFR > 60 > 60 Random Vancomycin 13.7 L <Juan Burkett PA-C - Last Filed: 04/13/25 07:57> Procedures Date of Service Date of Service: 04/13/25 <Juan Burkett PA-C - Last Filed: 04/13/25 07:57> 04/13/25 <Carlos Navas MD - Last Filed: 04/13/25 11:19> Progress Note: A&P Assessment and plan (1) S/P cholecystectomy: Status: Acute <Juan Burkett PA-C - Last Filed: 04/13/25 07:57> Assessment and Plan: Feels better overall Passing flatus No nausea or vomiting Tolerating clear liquids Abdomen is soft and benign Small area with drainage, serosanguineous on the subcostal incision Dressings changed Advance diet Ambulate ED drain with scanty output - plan to DC prior to discharge <Carlos Navas MD - Last Filed: 04/13/25 11:19> Assessment and Plan: 70-year-old male postop day 6 s/p open cholecystectomy. Feels imrpoved today, less bloated, breathing improved. He is passing flatus, has not passed bowel movement at this point added colace yesterday, felt like he had to pass a BM but was unable to do so. Recommending continuing to increas ambulation and maintaining adequate hydration. On exam his abdomen remains mild to moderately distended, tympanic to percussion. Abdomen is soft. Mildly tender in the right upper quadrant. Right upper quadrant incision, packing at the midline and of the incision with some oozing onto the gauze. I removed the packing was able to facilitate serosanguineous drainage. The incision otherwise looks clean and dry, no surrounding erythema no purulence. ED drain is scant serosanguineous output, 40 cc last 24 hours. non bilious Will advance diet to regular. Colace b.i.d. as needed for constipation Ambulation as tolerated. ED drain will stay in place for now, can likely be removed prior to discharge < Juan Burkett PA-C - Last Filed: 04/13/25 07:57> Time Spent With Patient Time: Total time managing care of this patient today ____ minutes. <Juan Burkett PA-C - Last Filed: 04/13/25 07:57> Quality Stroke Does the patient have a stroke diagnosis?: No <Juan Burkett PA-C - Last Filed: 04/13/25 07:57> VTE Prior VTE?: No <Juan Burkett PA-C - Last Filed: 04/13/25 07:57> VTE Risk Level:: Medical - moderate - high <Juan Burkett PA-C - Last Filed: 04/13/25 07:57> VTE Device Contraindication: N/A - Device Ordered <Juan Burkett PA-C - Last Filed: 04/13/25 07:57> VTE Drug Contraindication: N/A - Med Ordered <Juan Burkett PA-C - Last Filed: 04/13/25 07:57>
[2025-04-13] MEDS: oxyCODONE HCl Immed Release 5 MG TABLET 10 MG PO ×2 (08:29→15:46)
[2025-04-13] MEDS: Metoprolol Succinate ER 50 MG TAB.ER.24H PO (08:30)
[2025-04-13] MEDS: guaiFEN/Codeine SF 200/20/10ML 10 ML LIQUID PO ×2 (08:30→22:38)
[2025-04-13] MEDS: Ferrous Sulfate 324 MG TABLET.DR PO (08:30)
[2025-04-13] MEDS: Milk of Magnesia 30 ML ORAL.SUSP PO (08:34)
[2025-04-13] MEDS: Dorzolamide HCl 2 % Ophth Sol 10 ML DRPBTL 1 DROP EYE-BOTH (09:23)
[2025-04-13] MEDS: Brimonidine Tartrate 0.2% Oph 5 ML BOTTLE 1 DROP EYE-BOTH (09:23)
--- NOTE | 2025-04-13 11:42 | P.PNIM_ITS ---
Subjective Subjective Date of Service: 04/13/25 Interval History: He is feeling much better today. Abdomen is less distended. Has no pain. No bleeding. Physical Exam 2 Vital Signs: Vital Signs: Last Vital Signs Temp 97.3 F 04/13/25 07:18 Pulse 94 04/13/25 08:30 Resp 16 04/13/25 07:18 BP 138/69 04/13/25 08:30 Pulse Ox 99 04/13/25 07:18 O2 Del Method Room Air 04/13/25 07:18 O2 Flow Rate 2 04/10/25 15:45 BMI result Body Mass Index 34.8 Const: Other: General: AO X 3, mild discomfort in abd d/t distention, seems anxious Resp: CTA bilateral CVS: S1,S2,RRR GI: less distention, Skin: No rash Neuro: motor grossly intact Psych: appropriate affect Objective Data Active Medications Amlodipine Besylate (Amlodipine Besylate 10 Mg Tablet) 10 mg PO DAILY [facility]; Protocol Last Admin: 04/13/25 08:29 Dose: 10 mg Documented By: YESSY Benzocaine (Throat Lozenge, Medicated Lozenge) 1 lozenge MUCOUS MEM Q2H PRN PRN Reason: Sore Throat Last Admin: 04/08/25 09:16 Dose: 1 lozenge Documented By: YESSY Brimonidine Tartrate (Brimonidine Tartrate 0.2% Oph 5 Ml Bottle) 1 drop EYE- BOTH BID [facility] Last Admin: 04/13/25 09:23 Dose: 1 drop Documented By: YESSY Calcium Carbonate (Calcium Carbonate 750 Mg Tab.Chew) 750 mg PO Q4H PRN PRN Reason: Heartburn Diazepam (Diazepam 10 Mg/2 Ml Cartridge) 10 mg IVPUSH Q4H PRN PRN Reason: Anxiety Last Admin: 04/07/25 23:17 Dose: 10 mg Documented By: INDIRA Docusate Sodium (Docusate Sodium 100 Mg Capsule) 100 mg PO BID PRN PRN Reason: Constipation Last Admin: 04/13/25 08:29 Dose: 100 mg Documented By: YESSY Dorzolamide HCl (Dorzolamide Hcl 2 % Ophth Aminah 10 Ml Drpbtl) 1 drop EYE-BOTH BID [facility] Last Admin: 04/13/25 09:23 Dose: 1 drop Documented By: YESSY Ferrous Sulfate (Ferrous Sulfate 324 Mg Tablet.Dr) 324 mg PO DAILY [facility] Last Admin: 04/13/25 08:30 Dose: 324 mg Documented By: YESSY Finasteride (Finasteride 5 Mg Tablet) 5 mg PO DAILY [facility] Last Admin: 04/13/25 08:30 Dose: 5 mg Documented By: YESSY Guaifenesin/Codeine Phosphate (Guaifen/Codeine Sf 200/20/10ml 10 Ml Liquid) 10 ml PO Q6H PRN PRN Reason: Cough Last Admin: 04/13/25 08:30 Dose: 10 ml Documented By: YESSY Heparin Sodium (Porcine) (Heparin Sodium,Porcine 5,000 Unit/Ml Vial) 5,000 unit SUBCUT Q12H [facility] Last Admin: 04/13/25 09:26 Dose: Not Given Documented By: YESSY Non-Admin Reason: Patient Refused Hydralazine HCl (Hydralazine Hcl 20 Mg/Ml Vial) 10 mg IVPUSH Q6H PRN; Protocol PRN Reason: SBP > 160 Last Admin: 04/12/25 21:06 Dose: 10 mg Documented By: INDIRA Hydroxyzine HCl (Hydroxyzine Hcl 25 Mg Tablet) 25 mg PO BEDTIME PRN PRN Reason: Insomnia Piperacillin Sod/Tazobactam (Sod 3.375 gm/ Sodium Chloride) 50 mls @ 100 mls/hr IV Q6H [facility] Last Infusion: 04/13/25 08:58 Dose: Infused Documented By: YESSY Acetaminophen (Ofirmev) 1,000 mg in 100 mls @ 400 mls/hr IV Q6H [facility] Last Infusion: 04/13/25 09:36 Dose: Infused Documented By: YESSY Lisinopril (Lisinopril 10 Mg Tablet) 30 mg PO DAILY [facility]; Protocol Last Admin: 04/13/25 08:28 Dose: 30 mg Documented By: YESSY Magnesium Hydroxide (Milk Of Magnesia 30 Ml Oral.Susp) 30 ml PO DAILY PRN PRN Reason: Constipation Last Admin: 04/13/25 08:34 Dose: 30 ml Documented By: YESSY Melatonin (Melatonin 3 Mg Tablet) 6 mg PO BEDTIME PRN PRN Reason: Insomnia Metoprolol Succinate (Metoprolol Succinate Er 50 Mg Tab.Er.24h) 50 mg PO DAILY [facility]; Protocol Last Admin: 04/13/25 08:30 Dose: 50 mg Documented By: YESSY Morphine Sulfate (Morphine Sulfate 4 Mg/Ml Cartridge) 4 mg IVPUSH Q4H PRN; Protocol PRN Reason: Pain, Severe (Pain Scale 7-10) Last Admin: 04/13/25 02:17 Dose: 4 mg Documented By: INDIRA Naloxone HCl (Naloxone Hcl 0.4 Mg/Ml Vial) 0.04 mg IVPUSH Q5M PRN PRN Reason: Excessive sedation or RR < 8 Naloxone HCl (Naloxone Hcl 0.4 Mg/Ml Vial) 0.04 mg IVPUSH Q5M PRN PRN Reason: Excessive sedation or RR < 8 Omeprazole (Omeprazole 40 Mg Capsule.Dr) 40 mg PO DAILY@0630 [facility] Last Admin: 04/13/25 05:56 Dose: 40 mg Documented By: INDIRA Ondansetron HCl (Ondansetron Hcl 4 Mg/2 Ml Vial) 4 mg IVPUSH Q8H PRN PRN Reason: Nausea and Vomiting Oxycodone HCl (Oxycodone Hcl Immed Release 5 Mg Tablet) 5 mg PO Q4H PRN PRN Reason: Pain, Mild 1-3,fever,headache Oxycodone HCl (Oxycodone Hcl Immed Release 5 Mg Tablet) 10 mg PO Q4H PRN PRN Reason: Pain, Moderate(Pain Scale 4-6) Last Admin: 04/13/25 08:29 Dose: 10 mg Documented By: YESSY Pharmacy Consult (Consult Rx Vancomycin Dosing) 1 each MISCELLANE DAILY PRN PRN Reason: Consult order Sodium Chloride (0.9 % Sodium Chloride Flush 3 Ml Syringe) 3 ml IVFLUSH QSHIFT [facility] Last Admin: 04/13/25 08:22 Dose: 3 ml Documented By: YESSY Tamsulosin HCl (Tamsulosin Hcl 0.4 Mg Capsule) 0.4 mg PO BEDTIME [facility] Last Admin: 04/12/25 20:35 Dose: 0.4 mg Documented By: INDIRA Labs 04/10/25 06:25 04/13/25 05:48 Labs: Laboratory Results - last 24 hr 04/12/25 04/13/25 20:55 05:48 Hold Purple Top SEE NOTE Estim Creat Clear Calc 146.0 Estimated GFR > 60 Random Vancomycin 13.7 L Microbiology Microbiology Results: Microbiology 04/05/25 21:13 Blood Culture - Final Blood - Venous No growth after 5 days. 04/05/25 21:13 Blood Culture - Final Blood - Venous No growth after 5 days. 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 Hospitalist group consulted per Dr. Navas for management of hypertension. Currently it is felt that hypertension is related to patient's symptoms of persistent nausea with vomiting. Nursing is following through on plan to place NG tube to help relieve patient's symptoms. 1. Hypertension, controlled. continue toprolol and norvasc, increased lisinopril to 30 with good result 2. Small-bowel obstruction -Management per General surgery empiric soco corbett 3. Sob, likely related to abd distention, and is better today 3.GERD -omeprazole 4. glaucoma, eye drops 5 We will follow Quality Stroke Does the patient have a stroke diagnosis?: No VTE Prior VTE?: No VTE Risk Level:: Medical - moderate - high VTE Device Contraindication: N/A - Device Ordered VTE Drug Contraindication: N/A - Med Ordered
[2025-04-13 11:57] LABS: MANUAL DIFF FLAG NO
[2025-04-13 12:00] LABS: Hematocrit 33.3 % (42.0-52.0); Hemoglobin 11.1 g/dl (14.0-18.0); Imm Gran Abs Auto 0.11 X10*3/uL (0.00-0.03); Imm Gran Pct Auto 1.0 % (0.0-0.4); Lymphocytes Absolute Auto 2.0 X10*3/uL (1.2-4.9); Mean Corpuscular HGB Conc 33.3 g/dl (31.0-36.0); Mean Corpuscular Hemoglobin 28.8 pg (27.0-33.0); Mean Corpuscular Volume 86.3 fL (80.0-98.0); NRBC Abs Auto 0.020 X10*3/uL (0.0-0.012); NRBC Pct Auto 0.2 /100WBC (0.0-0.2); Platelet Count 494 X10*3/uL (160-400); Red Blood Count 3.86 X10*6/uL (4.60-5.80); White Blood Count 11.1 X10*3/uL (4.8-10.8)
[2025-04-13 12:08] LABS: Anion Gap 11 (12-20); Carbon Dioxide 27 mmol/L (22-29); Chloride 104 mmol/L (96-108); Potassium 3.4 mmol/L (3.3-5.1); Sodium 139 mmol/L (135-145)
[2025-04-14] MEDS: oxyCODONE HCl Immed Release 5 MG TABLET 10 MG PO ×3 (05:32→13:02)
[2025-04-14 06:13] LABS: Creatinine Clr Calc Pharmacy 111.7; Estimated Glomerular Filt Rate > 60
--- NOTE | 2025-04-14 07:27 | PM.PNGS ---
Subjective Subjective Date of Service: 04/14/25 <Juan Burkett PA-C - Last Filed: 04/14/25 11:24> 04/14/25 <Carlos Navas MD - Last Filed: 04/14/25 07:52> Interval history: doing well, minimal pain. still passing gas, no BM. Has the urge to go but cannot when he gets to the bathroom. denies nausea or vomiting. Tolerating diet. Feels ready to go home <Juan Burkett PA-C - Last Filed: 04/14/25 11:24> Physical Exam Vital Signs: Vital Signs: Last Vital Signs Temp 97.4 F 04/13/25 23:39 Pulse 100 04/13/25 23:39 Resp 18 04/13/25 23:39 BP 144/74 H 04/13/25 23:39 Pulse Ox 95 04/13/25 23:39 O2 Del Method Room Air 04/13/25 23:39 O2 Flow Rate 2 04/10/25 15:45 BMI result Body Mass Index 34.8 <DENVER Hanley Last Filed: 04/14/25 11:24> Const: General: comfortable and no acute distress <Juan Burkett PA-C - Last Filed: 04/14/25 11:24> Orientation/consciousness: patient oriented x3 <DENVER Hanley Last Filed: 04/14/25 11:24> Resp: Effort & Inspection: normal respiratory effort and able to speak in complete sentences <Juan Burkett PA-C - Last Filed: 04/14/25 11:24> GI: Other: ISABELA incision remains open on the midline aspect, able to express scant dark blood. No purulence noted. no surrounding erythema <Juan Burkett PA-C - Last Filed: 04/14/25 11:24> Inspection: Yes distended (mild) <DENVER Hanley Last Filed: 04/14/25 11:24> Palpation (GI): Soft to palpation, not firm, Tenderness to palpation present (GI) in the RUQ, no guarding and not rigid <DENVER Hanley Last Filed: 04/14/25 11:24> Percussion: Yes tympanic to percussion (epigastric) <DENVER Hanley Last Filed: 04/14/25 11:24> Neuro: General: patient oriented x3 <Juan Burkett PA-C - Last Filed: 04/14/25 11:24> Objective Data Active Medications Amlodipine Besylate (Amlodipine Besylate 10 Mg Tablet) 10 mg PO DAILY [facility]; Protocol Last Admin: 04/13/25 08:29 Dose: 10 mg Documented By: YESSY Benzocaine (Throat Lozenge, Medicated Lozenge) 1 lozenge MUCOUS MEM Q2H PRN PRN Reason: Sore Throat Last Admin: 04/08/25 09:16 Dose: 1 lozenge Documented By: YESSY Brimonidine Tartrate (Brimonidine Tartrate 0.2% Oph 5 Ml Bottle) 1 drop EYE-BOTH BID [facility] Last Admin: 04/13/25 22:38 Dose: Not Given Documented By: INDIRA Non-Admin Reason: Patient Refused Calcium Carbonate (Calcium Carbonate 750 Mg Tab.Chew) 750 mg PO Q4H PRN PRN Reason: Heartburn Diazepam (Diazepam 10 Mg/2 Ml Cartridge) 10 mg IVPUSH Q4H PRN PRN Reason: Anxiety Last Admin: 04/07/25 23:17 Dose: 10 mg Documented By: INDIRA Docusate Sodium (Docusate Sodium 100 Mg Capsule) 100 mg PO BID PRN PRN Reason: Constipation Last Admin: 04/13/25 08:29 Dose: 100 mg Documented By: YESSY Dorzolamide HCl (Dorzolamide Hcl 2 % Ophth Aminah 10 Ml Drpbtl) 1 drop EYE-BOTH BID [facility] Last Admin: 04/13/25 22:38 Dose: Not Given Documented By: INDIRA Non-Admin Reason: Patient Refused Ferrous Sulfate (Ferrous Sulfate 324 Mg Tablet.Dr) 324 mg PO DAILY [facility] Last Admin: 04/13/25 08:30 Dose: 324 mg Documented By: YESSY Finasteride (Finasteride 5 Mg Tablet) 5 mg PO DAILY [facility] Last Admin: 04/13/25 08:30 Dose: 5 mg Documented By: YESSY Guaifenesin/Codeine Phosphate (Guaifen/Codeine Sf 200/20/10ml 10 Ml Liquid) 10 ml PO Q6H PRN PRN Reason: Cough Last Admin: 04/13/25 22:38 Dose: 10 ml Documented By: INDIRA Heparin Sodium (Porcine) (Heparin Sodium,Porcine 5,000 Unit/Ml Vial) 5,000 unit SUBCUT Q12H [facility] Last Admin: 04/13/25 22:45 Dose: Not Given Documented By: INDIRA Non-Admin Reason: Patient Refused Hydralazine HCl (Hydralazine Hcl 20 Mg/Ml Vial) 10 mg IVPUSH Q6H PRN; Protocol PRN Reason: SBP > 160 Last Admin: 04/12/25 21:06 Dose: 10 mg Documented By: INDIRA Hydroxyzine HCl (Hydroxyzine Hcl 25 Mg Tablet) 25 mg PO BEDTIME PRN PRN Reason: Insomnia Piperacillin Sod/Tazobactam (Sod 3.375 gm/ Sodium Chloride) 50 mls @ 100 mls/hr IV Q6H [facility] Last Admin: 04/14/25 07:09 Dose: 100 mls/hr Documented By: GONZALO Acetaminophen (Ofirmev) 1,000 mg in 100 mls @ 400 mls/hr IV Q6H [facility] Last Infusion: 04/14/25 03:13 Dose: Infused Documented By: INDIRA Lisinopril (Lisinopril 10 Mg Tablet) 30 mg PO DAILY [facility]; Protocol Last Admin: 04/13/25 08:28 Dose: 30 mg Documented By: YESSY Magnesium Hydroxide (Milk Of Magnesia 30 Ml Oral.Susp) 30 ml PO DAILY PRN PRN Reason: Constipation Last Admin: 04/13/25 08:34 Dose: 30 ml Documented By: YESSY Melatonin (Melatonin 3 Mg Tablet) 6 mg PO BEDTIME PRN PRN Reason: Insomnia Metoprolol Succinate (Metoprolol Succinate Er 50 Mg Tab.Er.24h) 50 mg PO DAILY [facility]; Protocol Last Admin: 04/13/25 08:30 Dose: 50 mg Documented By: YESSY Morphine Sulfate (Morphine Sulfate 4 Mg/Ml Cartridge) 4 mg IVPUSH Q4H PRN; Protocol PRN Reason: Pain, Severe (Pain Scale 7-10) Last Admin: 04/13/25 02:17 Dose: 4 mg Documented By: INDIRA Naloxone HCl (Naloxone Hcl 0.4 Mg/Ml Vial) 0.04 mg IVPUSH Q5M PRN PRN Reason: Excessive sedation or RR < 8 Naloxone HCl (Naloxone Hcl 0.4 Mg/Ml Vial) 0.04 mg IVPUSH Q5M PRN PRN Reason: Excessive sedation or RR < 8 Omeprazole (Omeprazole 40 Mg Capsule.Dr) 40 mg PO DAILY@0630 [facility] Last Admin: 04/14/25 05:32 Dose: 40 mg Documented By: GONZALO Ondansetron HCl (Ondansetron Hcl 4 Mg/2 Ml Vial) 4 mg IVPUSH Q8H PRN PRN Reason: Nausea and Vomiting Oxycodone HCl (Oxycodone Hcl Immed Release 5 Mg Tablet) 5 mg PO Q4H PRN PRN Reason: Pain, Mild 1-3,fever,headache Oxycodone HCl (Oxycodone Hcl Immed Release 5 Mg Tablet) 10 mg PO Q4H PRN PRN Reason: Pain, Moderate(Pain Scale 4-6) Last Admin: 04/14/25 05:32 Dose: 10 mg Documented By: GONZALO Sodium Chloride (0.9 % Sodium Chloride Flush 3 Ml Syringe) 3 ml IVFLUSH QSHIFT [facility] Last Admin: 04/14/25 07:05 Dose: Not Given Documented By: GONZALO Non-Admin Reason: IV Running Tamsulosin HCl (Tamsulosin Hcl 0.4 Mg Capsule) 0.4 mg PO BEDTIME [facility] Last Admin: 04/13/25 22:29 Dose: 0.4 mg Documented By: CORNELLV <Juan Burkett PA-C - Last Filed: 04/14/25 11:24> Labs CBC & Chem 7: 04/13/25 05:48 04/14/25 05:29 <Juan Burkett PA-C - Last Filed: 04/14/25 11:24> Labs: Laboratory Results - last 24 hr 04/13/25 04/14/25 05:48 05:29 MCV 86.3 MCH 28.8 MCHC 33.3 RDW 16.1 H Plt Count 494 H D MPV 9.3 L Immature Gran % (Auto) 1.0 H Neut % (Auto) 70.0 Lymph % (Auto) 17.9 L [place] % (Auto) 8.5 Eos % (Auto) 2.2 Baso % (Auto) 0.4 Lymph # (Auto) 2.0 [place] # (Auto) 0.9 Eos # (Auto) 0.2 Baso # (Auto) 0.0 Abs Immat Gran (auto) 0.11 H Absolute Neuts (auto) 7.7 Absolute Nucleated RBC 0.020 H Nucleated RBC % (auto) 0.2 Anion Gap 11 L Estim Creat Clear Calc 111.7 Estimated GFR > 60 <Juan Burkett PA-C - Last Filed: 04/14/25 11:24> Procedures Date of Service Date of Service: 04/14/25 <Juan Burkett PA-C - Last Filed: 04/14/25 11:24> 04/14/25 <Carlos Navas MD - Last Filed: 04/14/25 07:52> Progress Note: A&P Assessment and plan (1) S/P cholecystectomy: Status: Acute <Juan Burkett PA-C - Last Filed: 04/14/25 11:24> Assessment and Plan: Feels well Tolerating diet Passing flatus although no BMs Abdomen is soft and benign Open part of the incision clean Looks well overall States he is ready to be discharged We will re-evaluate later today for discharge Discussed with daughter Maria eD Jesus Follow up instructions reinforced with the patient <Carlos Navas MD - Last Filed: 04/14/25 07:52> (2) Partial small bowel obstruction: Status: Acute <Juan Burkett PA-C - Last Filed: 04/14/25 11:24> Assessment and Plan: Symptoms have resolved completely Tolerating diet well Abdomen is soft and benign <Carlos Navas MD - Last Filed: 04/14/25 07:52> Assessment and Plan: 70-year-old male postop day 7 s/p open cholecystectomy. Clincially doing well, he feels improved and ready to go home. Currently asymptomatic, continues to tolerate diet. Passing gas, no bowel movement, has sensation to passing BM but has not been able to do so, has been continuing with colace BID for constipation. abdomen is soft an benign. open side of the RUQ incision draining scant serosanguineous fluid. Oran remain in place, will be removed in the office. Discharge home today Tolerating diet well Abdomen is soft and benign <Juan Burkett PA-C - Last Filed: 04/14/25 11:24> Time Spent With Patient Time: Total time managing care of this patient today ____ minutes. <Juan Burkett PA-C - Last Filed: 04/14/25 11:24> Quality Stroke Does the patient have a stroke diagnosis?: No <Juan Burkett PA-C - Last Filed: 04/14/25 11:24> VTE Prior VTE?: No <Juan Burkett PA-C - Last Filed: 04/14/25 11:24> VTE Risk Level:: Medical - moderate - high <Juan Burkett PA-C - Last Filed: 04/14/25 11:24> VTE Device Contraindication: N/A - Device Ordered <Juan Burkett PA-C - Last Filed: 04/14/25 11:24> VTE Drug Contraindication: N/A - Med Ordered <Juan Burkett PA-C - Last Filed: 04/14/25 11:24>
--- NOTE | 2025-04-14 07:53 | P.PNIM_ITS ---
Subjective Subjective Date of Service: 04/14/25 Interval History: Doing well, tolerating regular diet Physical Exam 2 Vital Signs: Vital Signs: Last Vital Signs Temp 97.4 F 04/13/25 23:39 Pulse 100 04/13/25 23:39 Resp 18 04/13/25 23:39 BP 144/74 H 04/13/25 23:39 Pulse Ox 95 04/13/25 23:39 O2 Del Method Room Air 04/13/25 23:39 O2 Flow Rate 2 04/10/25 15:45 BMI result Body Mass Index 34.8 Const: Other: General: AO X 3, mild discomfort in abd d/t distention, seems anxious Resp: CTA bilateral CVS: S1,S2,RRR GI: less distention, Skin: No rash Neuro: motor grossly intact Psych: appropriate affect Objective Data Active Medications Amlodipine Besylate (Amlodipine Besylate 10 Mg Tablet) 10 mg PO DAILY [facility]; Protocol Last Admin: 04/13/25 08:29 Dose: 10 mg Documented By: YESSY Benzocaine (Throat Lozenge, Medicated Lozenge) 1 lozenge MUCOUS MEM Q2H PRN PRN Reason: Sore Throat Last Admin: 04/08/25 09:16 Dose: 1 lozenge Documented By: YESSY Brimonidine Tartrate (Brimonidine Tartrate 0.2% Oph 5 Ml Bottle) 1 drop EYE- BOTH BID [facility] Last Admin: 04/13/25 22:38 Dose: Not Given Documented By: INDIRA Non-Admin Reason: Patient Refused Calcium Carbonate (Calcium Carbonate 750 Mg Tab.Chew) 750 mg PO Q4H PRN PRN Reason: Heartburn Diazepam (Diazepam 10 Mg/2 Ml Cartridge) 10 mg IVPUSH Q4H PRN PRN Reason: Anxiety Last Admin: 04/07/25 23:17 Dose: 10 mg Documented By: INDIRA Docusate Sodium (Docusate Sodium 100 Mg Capsule) 100 mg PO BID PRN PRN Reason: Constipation Last Admin: 04/13/25 08:29 Dose: 100 mg Documented By: YESSY Dorzolamide HCl (Dorzolamide Hcl 2 % Ophth Aminah 10 Ml Drpbtl) 1 drop EYE-BOTH BID [facility] Last Admin: 04/13/25 22:38 Dose: Not Given Documented By: INDIRA Non-Admin Reason: Patient Refused Ferrous Sulfate (Ferrous Sulfate 324 Mg Tablet.) 324 mg PO DAILY [facility] Last Admin: 04/13/25 08:30 Dose: 324 mg Documented By: YESSY Finasteride (Finasteride 5 Mg Tablet) 5 mg PO DAILY [facility] Last Admin: 04/13/25 08:30 Dose: 5 mg Documented By: YESSY Guaifenesin/Codeine Phosphate (Guaifen/Codeine Sf 200/20/10ml 10 Ml Liquid) 10 ml PO Q6H PRN PRN Reason: Cough Last Admin: 04/13/25 22:38 Dose: 10 ml Documented By: INDIRA Heparin Sodium (Porcine) (Heparin Sodium,Porcine 5,000 Unit/Ml Vial) 5,000 unit SUBCUT Q12H [facility] Last Admin: 04/13/25 22:45 Dose: Not Given Documented By: INDIRA Non-Admin Reason: Patient Refused Hydralazine HCl (Hydralazine Hcl 20 Mg/Ml Vial) 10 mg IVPUSH Q6H PRN; Protocol PRN Reason: SBP > 160 Last Admin: 04/12/25 21:06 Dose: 10 mg Documented By: INDIRA Hydroxyzine HCl (Hydroxyzine Hcl 25 Mg Tablet) 25 mg PO BEDTIME PRN PRN Reason: Insomnia Piperacillin Sod/Tazobactam (Sod 3.375 gm/ Sodium Chloride) 50 mls @ 100 mls/hr IV Q6H [facility] Last Admin: 04/14/25 07:09 Dose: 100 mls/hr Documented By: GONZALO [facility] 1,000 mg in 100 mls @ 400 mls/hr IV Q6H [facility] Last Infusion: 04/14/25 03:13 Dose: Infused Documented By: INDIRA Lisinopril (Lisinopril 10 Mg Tablet) 30 mg PO DAILY [facility]; Protocol Last Admin: 04/13/25 08:28 Dose: 30 mg Documented By: YESSY Magnesium Hydroxide (Milk Of Magnesia 30 Ml Oral.Susp) 30 ml PO DAILY PRN PRN Reason: Constipation Last Admin: 04/13/25 08:34 Dose: 30 ml Documented By: YESSY Melatonin (Melatonin 3 Mg Tablet) 6 mg PO BEDTIME PRN PRN Reason: Insomnia Metoprolol Succinate (Metoprolol Succinate Er 50 Mg Tab.Er.24h) 50 mg PO DAILY [facility]; Protocol Last Admin: 04/13/25 08:30 Dose: 50 mg Documented By: YESSY Morphine Sulfate (Morphine Sulfate 4 Mg/Ml Cartridge) 4 mg IVPUSH Q4H PRN; Protocol PRN Reason: Pain, Severe (Pain Scale 7-10) Last Admin: 04/13/25 02:17 Dose: 4 mg Documented By: INDIRA Naloxone HCl (Naloxone Hcl 0.4 Mg/Ml Vial) 0.04 mg IVPUSH Q5M PRN PRN Reason: Excessive sedation or RR < 8 Naloxone HCl (Naloxone Hcl 0.4 Mg/Ml Vial) 0.04 mg IVPUSH Q5M PRN PRN Reason: Excessive sedation or RR < 8 Omeprazole (Omeprazole 40 Mg Capsule.Dr) 40 mg PO DAILY@0630 [facility] Last Admin: 04/14/25 05:32 Dose: 40 mg Documented By: GONZALO Ondansetron HCl (Ondansetron Hcl 4 Mg/2 Ml Vial) 4 mg IVPUSH Q8H PRN PRN Reason: Nausea and Vomiting Oxycodone HCl (Oxycodone Hcl Immed Release 5 Mg Tablet) 5 mg PO Q4H PRN PRN Reason: Pain, Mild 1-3,fever,headache Oxycodone HCl (Oxycodone Hcl Immed Release 5 Mg Tablet) 10 mg PO Q4H PRN PRN Reason: Pain, Moderate(Pain Scale 4-6) Last Admin: 04/14/25 05:32 Dose: 10 mg Documented By: GONZALO Sodium Chloride (0.9 % Sodium Chloride Flush 3 Ml Syringe) 3 ml IVFLUSH QSHIFT [facility] Last Admin: 04/14/25 07:05 Dose: Not Given Documented By: GONZALO Non-Admin Reason: IV Running Tamsulosin HCl (Tamsulosin Hcl 0.4 Mg Capsule) 0.4 mg PO BEDTIME [facility] Last Admin: 04/13/25 22:29 Dose: 0.4 mg Documented By: INDIRA Labs 04/13/25 05:48 04/14/25 05:29 Labs: Laboratory Results - last 24 hr 04/13/25 04/14/25 05:48 05:29 MCV 86.3 MCH 28.8 MCHC 33.3 RDW 16.1 H Plt Count 494 H D MPV 9.3 L Immature Gran % (Auto) 1.0 H Neut % (Auto) 70.0 Lymph % (Auto) 17.9 L [place] % (Auto) 8.5 Eos % (Auto) 2.2 Baso % (Auto) 0.4 Lymph # (Auto) 2.0 [place] # (Auto) 0.9 Eos # (Auto) 0.2 Baso # (Auto) 0.0 Abs Immat Gran (auto) 0.11 H Absolute Neuts (auto) 7.7 Absolute Nucleated RBC 0.020 H Nucleated RBC % (auto) 0.2 Anion Gap 11 L Estim Creat Clear Calc 111.7 Estimated GFR > 60 Assessment and Plan (1) Hypertension: Status: Acute (2) Small bowel obstruction: Status: Acute Plan Patient is a 69-year-old male with past medical history COVID-19, BPH, 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 Hospitalist group consulted per Dr. Navas for management of hypertension. Currently it is felt that hypertension is related to patient's symptoms of persistent nausea with vomiting. Nursing is following through on plan to place NG tube to help relieve patient's symptoms. 1. Hypertension, better continue toprolol 50, and norvasc 10, increased lisinopril to 30 and should dc wih this 2. Small-bowel obstruction -Management per General surgery empiric soco corbett 3. Sob, likely related to abd distention, and is better today 3.GERD -omeprazole 4. glaucoma, eye drops Quality Stroke Does the patient have a stroke diagnosis?: No VTE Prior VTE?: No VTE Risk Level:: Medical - moderate - high VTE Device Contraindication: N/A - Device Ordered VTE Drug Contraindication: N/A - Med Ordered
[2025-04-14 08:00] VITALS: BP 155/85; PULSE 89; RESP 16; TEMP 36.3; O2SAT 95
[2025-04-14 08:34] LABS: Anion Gap 18 (12-20); Carbon Dioxide 19 mmol/L (22-29); Chloride 108 mmol/L (96-108); Potassium 4.4 mmol/L (3.3-5.1); Sodium 141 mmol/L (135-145)
[2025-04-14] MEDS: Dorzolamide HCl 2 % Ophth Sol 10 ML DRPBTL 1 DROP EYE-BOTH (09:03)
[2025-04-14] MEDS: Brimonidine Tartrate 0.2% Oph 5 ML BOTTLE 1 DROP EYE-BOTH (09:03)
[2025-04-14] MEDS: guaiFEN/Codeine SF 200/20/10ML 10 ML LIQUID PO (09:03)
[2025-04-14] MEDS: Metoprolol Succinate ER 50 MG TAB.ER.24H PO (09:04)
[2025-04-14] MEDS: Ferrous Sulfate 324 MG TABLET.DR PO (09:04)
[2025-04-14] MEDS: Milk of Magnesia 30 ML ORAL.SUSP PO (09:12)
--- NOTE | 2025-04-14 11:38 | P.F2F_ITS ---
Service Date Service Date: 04/14/25 Encounter Date of encounter: 04/14/25 Reasons for Services Signs and symptoms assessed: ISABELA incision drainage, daily dressing changes with gauze and tape. Can try to express by milking any drainage from opposite end of incision, additional incision site evaluation. Return of bowel function Reason for detention: wound care Reason for physical therapy: home safety and mobility Homebound: Leaving the home is medically contraindicated at this time without the asist of a device and/or another person due th the listed conditions above and below. Reason homebound: weakness related to hospital stay Certification: Based on the above findings, I certify that this patient is confined to the home and needs intermittent detention care, physical therapy and/or speech therapy, or continues to need occupational therapy. The patient is under my care, and I have initiated the establishment of the plan of care. The patient will be followed by a physician who will periodically review the plan of care. Time Spent With Patient Time: Total time managing care of this patient today ____ minutes.
--- NOTE | 2025-04-14 11:51 | MHC.CM.PN ---
Patient is discharged to home today. [facility] will provide home services.. He has arranged for private transportation home. Discharge info sent to the agency via [facility].
[2025-04-14 13:10] VITALS: BP 174/79; PULSE 109; RESP 19; TEMP 36.5; O2SAT 94
--- NOTE | 2025-04-14 13:19 | PM.DS ---
DS: Providers Provider Date of Service: 04/14/25 Date of admission: 04/02/25 20:14 Date of discharge: 04/14/25 Primary care physician: Jeremy Hyde NP Consults: 04/02/25 20:19 Consult to Hospitalist Routine Comment: Consulting Provider: [facility] Hospitalists Reason For Exam: HTN, DS: Diagnosis Discharge Diagnosis (1) S/P cholecystectomy: Status: Acute (2) Partial small bowel obstruction: Status: Acute DS: Summary Hospital Course Hospital Course: Admission HPI: Rancho Baeza is a 69 year old male here in the ED for abdominal pain and vomitting x 2 days. He says that this started yesterday, with pain described as diffuse although starting on the left side. He had 2 episodes of vomitting earlier today. He also describes having watery stools earlier.He says his pain had gone from the left side to the right side. He says this this seems to be constant.He admits to some continuing pain although this is better.He had surgery for distal pancreatectomy and splenectomy for a neuroendocrine tumor last Aug 2023. He was admitted for upper GI bleed last December 2024, and this was controlled with IR embolization. CT findings suggestive of mid to distal SBO. He does have good amount of air distally, including in the colon. His abdominal exam is benign overall.His PSBO is likely from adhesions from his previous surgery with pancreatectomy and splenectomy.We will hold off on NGT placement for now as he has had no vomiting in several hours. I have consulted the hospitalist service for his HTN. Hospital course: Patient was initially managed for SBO, managed with the NG tube. Patient was experiencing discomfort with the NG tube, this was removed on 04/04/2025 was started on clear liquids, but this was deescalated to NPO due to right-sided abdominal pain. Patient reported that he did have sludge in the gallbladder, previous surgeons at [facility] were attempting to avoid another surgery due to complications from distal pancreatectomy. The ultrasound was ordered, we are following patient is liver enzymes. He continued to have right upper quadrant discomfort. Ultrasound showed gallstones, right upper quadrant pain with ultrasound suggestive of sonographic Lim's sign. We discussed possible surgical intervention, he was against surgery at this time due to a difficult surgery that happened last year. Continued to have abdominal pain, somewhat improved. Plan to continue with IV antibiotics, but if not improving may proceed with surgery or cholecystostomy tube. He is febrile tachycardic overnight on 04/05 and 812, not improving with IV antibiotics. Continue to have right upper quadrant abdominal pain, patient agreeable to have cholecystostomy tube IR was consulted. This was eventually canceled. Patient had a HIDA scan showing a nonvisualized and gallbladder suggestive of acute cholecystitis. After discussion with the patient and his daughter patient agreeable to cholecystectomy. On 04/07 patient had open cholecystectomy. Laparoscopic cholecystectomy was attempted, and converted to open partial fenestrating cholecystectomy, BRIDGER drain was left in place. POD 1, patient having significant pain in the right upper quadrant, he did begin ambulating. Tolerating clears Had some dysuria with urinating, UA was checked not suggestive of infection. BRIDGER was draining small amounts of serosanguineous fluid, nonbilious. Diet was advanced. POD to his pain was improving, very painful when coughing but comfortable at rest. BRIDGER continued low output nonbilious serosanguineous fluid. POD2 patient not feeling great, experiencing constipation, continues to pass gas but feels bloated. Having some difficulty breathing due to the pressure in his abdomen. Diet was deescalated to NPO. Some bleeding from the incision site. POD 3 patient doing better breathing improving, passing more gas. Still distended but no nausea or vomiting. The right upper quadrant incision was partially opened to allow drainage of some serosanguineous fluid. This was packed to facilitate further drainage. POD4 still having some trouble breathing due to abdominal distention. Passing lots of gas but still no bowel movement. Diet advanced to clears, continued wound care , facilitating drainage from right upper quadrant incision site, nonpurulent. Diet advanced to regular diet again. POD 6 , feeling better less bloated passing more flatus, sun a bowel movement. Abdomen is soft and benign tender in the right upper quadrant. We continued with local wound care, packing to facilitate drainage. BRIDGER output scant nonbilious. POD 7 largely unchanged still no bowel movement, has the urge but can not pass a bowel movement, continuing Colace. Patient wants to go home, discussed with the patient and daughter patient to be discharge, BRIDGER drain removed, patient tolerated well. We will go home with VNA services for local wound care to the right upper quadrant incision site. [place] remain intact. At the time of discharge the patient was in stable condition, abdomen was soft and benign, the midline aspect of the right upper quadrant incision remains open draining some serosanguineous fluid but decreasing daily. Status at Discharge Functional status at discharge: independent ambulation Overall status at discharge: patient is progressing back to baseline Time Attestation Discharge Coordination Time (in mins): 40 Quality: Safe Use of Opioids Does Pt have an Active Cancer Diagnosis on the Problem List?: No Quality: Stroke Does the patient have a stroke diagnosis?: No Physical Exam Vital Signs: Vital Signs: Last Vital Signs Temp 97.7 F 04/14/25 13:10 Pulse 109 H 04/14/25 13:10 Resp 19 04/14/25 13:10 BP 174/79 H 04/14/25 13:10 Pulse Ox 94 04/14/25 13:10 O2 Del Method Room Air 04/14/25 13:10 O2 Flow Rate 2 04/10/25 15:45 BMI result Body Mass Index 34.8 Const: General: comfortable and no acute distress Orientation/consciousness: patient oriented x3 Resp: Effort & Inspection: normal respiratory effort and able to speak in complete sentences GI: Other: ISABELA incision remains open on the midline aspect, able to express scant dark blood. No purulence noted. no surrounding erythema Inspection: Yes distended (mild) Palpation (GI): Soft to palpation, not firm, Tenderness to palpation present (GI) in the RUQ, no guarding and not rigid Percussion: Yes tympanic to percussion (epigastric) Neuro: General: patient oriented x3 DS: Data Data Completed and Pending Completed studies during hospitalization [Text1]: Pending at discharge 04/07/25 15:05 Surgical [PTH] Routine Procedures Drainage of Bladder with Drainage Device, Via Natural or Artificial Opening (01/07/25) Insertion of Infusion Device into Superior Vena Cava, Percutaneous Approach (01/07/25) Inspection of Upper Intestinal Tract, Via Natural or Artificial Opening Endoscopic (01/07/25) Introduction of Mineral-based Topical Hemostatic Agent into Upper GI, Via Natural or Artificial Opening Endoscopic, [employer] 6 (01/07/25) Introduction of Vasopressor into Central Vein, Percutaneous Approach (01/07/25) Occlusion of Gastric Artery with Intraluminal Device, Percutaneous Approach (01/07/25) Respiratory Ventilation, Greater than 96 Consecutive Hours (01/07/25) Transfusion of Nonautologous Frozen Plasma into Peripheral Vein, Percutaneous Approach (01/07/25) Transfusion of Nonautologous Platelets into Peripheral Vein, Percutaneous Approach (01/07/25) Transfusion of Nonautologous Red Blood Cells into Peripheral Vein, Percutaneous Approach (01/07/25) Ultrasonography of Superior Vena Cava, Guidance (01/07/25) Labs on day of discharge: Laboratory Results - last 24 hr 04/14/25 05:29 Sodium 141 Potassium 4.4 D Chloride 108 Carbon Dioxide 19 L Anion Gap 18 Creatinine 0.81 Estim Creat Clear Calc 111.7 Estimated GFR > 60 Discharge Plan Discharge Anticipated Discharge Date/Time: 04/14/25 09:26 Patient Disposition: Home Health Service Discharge Diagnosis: small bowel obstruction, acute cholecystitis Referrals: [facility] E Velas[facility] [Outside] - 1 Week Jeremy Hyde NP [Primary Care Provider, Medical] - 1 Week Carlos Navas MD [Physician, General Surgery] - 1 Week Discharge Medications: New amlodipine 10 mg Tablet 10 mg PO DAILY Qty: 30 0RF Protocol: Hold for SBP< HOLD for SBP < : 90 oxycodone-acetaminophen 5-325 mg tablet 1 tab PO Q6H PRN (Reason: pain) Qty: 25 0RF Rx Instructions: Partial Fill upon patient request. ibuprofen 600 mg tablet 600 mg PO Q6H PRN (Reason: pain) Qty: 20 0RF polyethylene glycol 3350 [Miralax] 17 gram/dose powder 17 g PO DAILY Qty: 119 0RF lisinopril 30 mg tablet 30 mg PO DAILY Qty: 90 0RF Continued finasteride 5 mg tablet 5 mg PO DAILY 90 Days Qty: 90 2RF ferrous gluconate 324 mg (38 mg iron) tablet 324 mg PO DAILY Qty: 90 0RF hydroxyzine HCl 25 mg Tablet 25 mg PO BEDTIME PRN (Reason: Insomnia) tadalafil 20 mg Tablet 5 mg PO DAILY Simbrinza 1-0.2 % Drops,Suspension 1 drp OPHTHALMIC (EYE) BID Rx Instructions: Both eyes metoprolol succinate 50 mg Tablet Extended Release 24 Hr 50 mg PO DAILY Qty: 0 0RF Protocol: Hold for SBP/HR < HOLD for SBP < : 90 HOLD for HR < : 60 omeprazole 40 mg capsule,delayed release(DR/EC) 40 mg PO DAILY@0630 tamsulosin 0.4 mg capsule 0.4 mg PO BEDTIME Qty: 30 2RF Discontinued lisinopril 20 mg Tablet 20 mg PO DAILY Qty: 0 0RF Protocol: Hold for SBP< HOLD for SBP < : 90 Discharge Orders: Discharge Order (Routine); Ordered 04/14/25 Ordered By: Carlos Navas Diet: Advance to usual diet Activity on Discharge: No heavy lifting Stand Alone Forms: Patient Portal Discharge page Print Language: Ukrainian Activity Restrictions/Additional Instructions: If the incision area is tender, you may apply an ice pack for short intervals (No more than 20 minutes on, followed by at least 20 minutes off). Do not apply heat. Do not use creams, lotions, or topical antibiotics unless instructed to do so by your surgeon. These can cause infection or allergic reaction. No lifting more than 20 lbs Okay to shower dry dressings with gauze on open part of incision No strenuous activities Call the office for follow-up in 2 weeks - with Dr. Navas; you can call the office to schedule the appointment ) Call Your Doctor If: -Your temperature exceeds 101.5? F -You experience excessive pain or swelling -You have an unexpected reaction to medication -You have excessive bleeding -You experience continued vomiting/nausea -Your incision begins to separate -Your incision shows signs of infection such as increased redness, swelling, excessive pain, drainage (light blood or clear fluid is normal) or heat Care Plan Goals: return to baseline Health Concerns: postop pain hypertension Plan of Treatment: oral pain meds office ffup Assessment: doing well Discharge Date/Time: 04/14/25 13:22
== END 2025-04-14 13:22 | disposition home health service (06) | DRG 336 ==
LOC: HO.ED 20:43 → HO.EDOVER 20:44 → HO.S3 04-03 03:01
PROVIDERS: Hospitalist; Internal Medicine; Nurse Practitioner Acute Care; Physician Assistant Medical; Physician Assistant Surgical; Registered Nurse Emergency; Student in an Organized Health Care Education/Training Program; Admitting Provider Surgery; Emergency Provider Emergency Medicine; PCP Nurse Practitioner Gerontology; Visit Provider Surgery
PROC: 0FT44ZZ Resection of Gallbladder, Percutaneous Endoscopic Approach (ICD-10-PCS; CPT 47562; principal; 2025-04-07 13:00)
DX: K56.51 Intestinal adhesions [bands], with partial obstruction (principal); K80.00 Calculus of gallbladder with acute cholecystitis without obstruction; K75.81 Nonalcoholic steatohepatitis (NASH); K82.8 Other specified diseases of gallbladder; K82.A1 Gangrene of gallbladder in cholecystitis; K21.9 Gastro-esophageal reflux disease without esophagitis; H40.9 Unspecified glaucoma; D50.9 Iron deficiency anemia, unspecified; N40.0 Benign prostatic hyperplasia without lower urinary tract symptoms; Z20.822 Contact with and (suspected) exposure to COVID-19; Z90.81 Acquired absence of spleen; Z87.442 Personal history of urinary calculi; Z87.891 Personal history of nicotine dependence; Z79.899 Other long term (current) drug therapy
CPT/HCPCS: 36415; 36600; 71045; 74176; 74177; 76705; 78226; 80048; 80051; 80053; 80076; 80202; 81001; 81003; 82248; 82565; 82803; 83605; 83690; 83735; 84484; 85025; 85027; 85610; 86850; 86900; 86901; 87040; 87070; 87077; 87186; 87205; 87637; 88304; 93005; 97161; 99285; A9537; J0131; J0330; J0360; J0665; J1171; J1644; J1920; J2003; J2250; J2270; J2371; J2405; J2543; J2704; J3010; J3360; J3373; J3374; J7120; Q9967

== ENCOUNTER → 2025-04-02 15:45 | Outpatient (BNV) | payer MEDICARE, MEDICAID, SELFPAY | PROVIDERS: Admitting Provider Surgery; Emergency Provider Emergency Medicine; Visit Provider Internal Medicine | DX: R00.1 Bradycardia, unspecified (principal) | CPT/HCPCS: 93010 ==

== ENCOUNTER → 2025-04-02 16:19 | Outpatient (BNV) | payer MEDICARE, MEDICAID, SELFPAY | PROVIDERS: Admitting Provider Surgery; Emergency Provider Emergency Medicine; Visit Provider Specialist | DX: J98.11 Atelectasis (principal) | CPT/HCPCS: 71045; 74177 ==

== ENCOUNTER 2025-04-02 20:14 | Outpatient (BNV) | payer MEDICARE, SELFPAY | END 2025-04-05 07:47 | PROVIDERS: Admitting Provider Surgery; Emergency Provider Emergency Medicine; Visit Provider Radiology Diagnostic Radiology | DX: K81.0 Acute cholecystitis (principal) | CPT/HCPCS: 76705 ==

== ENCOUNTER 2025-04-02 20:14 | Outpatient (BNV) | payer MEDICARE, MEDICAID, SELFPAY | END 2025-04-03 00:16 | PROVIDERS: Admitting Provider Surgery; Emergency Provider Emergency Medicine; Visit Provider Radiology Diagnostic Radiology | DX: Z46.59 Encounter for fitting and adjustment of other gastrointestinal appliance and device (principal) | CPT/HCPCS: 71045 ==

== ENCOUNTER 2025-04-02 20:14 | Outpatient (BNV) | payer MEDICARE, MEDICAID, SELFPAY | END 2025-04-06 10:29 | PROVIDERS: Admitting Provider Surgery; Emergency Provider Emergency Medicine; Visit Provider Radiology Diagnostic Radiology | DX: K81.0 Acute cholecystitis (principal) | CPT/HCPCS: 78226 ==

== ENCOUNTER 2025-04-02 20:14 | Outpatient (BNV) | payer MEDICARE, MEDICAID, SELFPAY | END 2025-04-04 18:28 | PROVIDERS: Admitting Provider Surgery; Emergency Provider Emergency Medicine; Visit Provider Radiology Neuroradiology | DX: K80.10 Calculus of gallbladder with chronic cholecystitis without obstruction (principal) | CPT/HCPCS: 74177 ==

== ENCOUNTER 2025-04-02 20:14 | Outpatient (BNV) | payer MEDICARE, SELFPAY | END 2025-04-10 11:11 | PROVIDERS: Admitting Provider Surgery; Emergency Provider Emergency Medicine; PCP Nurse Practitioner Gerontology; Visit Provider Radiology Vascular & Interventional Radiology | DX: R18.8 Other ascites (principal) | CPT/HCPCS: 74176 ==

== ENCOUNTER → 2025-04-02 20:14 | Outpatient (BNV) | payer MEDICARE, MEDICAID, SELFPAY | PROVIDERS: Admitting Provider Surgery; Emergency Provider Emergency Medicine; Visit Provider Surgery | DX: K56.609 Unspecified intestinal obstruction, unspecified as to partial versus complete obstruction (principal) | CPT/HCPCS: 99232; 99499 ==

== ENCOUNTER → 2025-04-02 20:14 | Outpatient (BNV) | payer MEDICARE, MEDICAID, SELFPAY | PROVIDERS: Admitting Provider Surgery; Emergency Provider Emergency Medicine; Visit Provider Nurse Practitioner Family | DX: I10 Essential (primary) hypertension (principal) | CPT/HCPCS: 99223 ==

== ENCOUNTER 2025-04-20 13:26 | Outpatient (AMB) | payer MEDICAID, SELFPAY ==
--- OUTSIDE RECORDS SUMMARY | 2025-01-26 05:46 | XMS_ITS | Encounter Summary ---
Author Name [facility] Organization [facility] [place] Address [address] [place] [address] Care Team Providers Care Operator Helper Name Role Phone BRYANNA COUCH Primary Care Provider Unavailabl e Insurance Providers: All historical and current Section Date Range: From patient's date of to the date document was created. This section includes the names of all active insurance providers for the patient. Insurance Provider Type of Coverage Plan Name Start of Policy Coverage End of Policy Coverage Group Number Member ID Insurance Provider's Telephone Number Policy Powell's Name Patient's Relationship to Policy Powell MEDICAID MEDICAID [facility] J[facility]AN Aug 26, 2020 MEDICAI D [id number] KELSEY TATE PATIENT MEDICARE (WNR) MEDICARE (M) PART B Mar 26, 2020 PART B [id number] RANCHO TATE JR PATIENT MEDICARE (WNR) MEDICARE (M) PART A Mar 26, 2020 PART A [id number] RANCHO TATE JR PATIENT Selected Encounter This section includes the information on record at [place] for the Encounter. Date/Time Encounter Type Encounter Description Reason Pro vider Source Jan 26, 2025 09:46 AM Outpatient Encounter ADMIN PAT ACTIVTIES (MASNONCT) IHE Encounter Template Text not used by [place] Plan of Treatment: Future Appointments (+ 6 months) and Future Tests (+/- 45 days) The Plan of Treatment section includes future care activities for the patient from all [place] [facility] This section includes future appointments and future orders which are active, pending or scheduled. Future Appointments This section includes appointments that were scheduled to occur 6 months from the date of the Encounter, up to a maximum of 20 appointments. The data comes from all [place] treatment facilities. Appointment Date/Time Appointment Type Appointme nt Facility Name Feb 18, 2025 11:00 AM [facility]ORY [facility] [place] Feb 19, 2025 02:30 PM AMBULATORY - MEDICINE [facility] Feb 23, 2025 01:00 PM [facility]IC[facility] [place] [facility] Feb 24, 2025 03:00 PM [facility]ORY [facility] MEDICINE [facility] [place] [facility] Mar 03, 2025 11:00 AM AMBULATORY - MEDICINE [facility] Mar 10, 2025 09:00 AM AMBULATORY - PS[facility]ATRY [facility] Mar 10, 2025 10:00 AM AMBULATORY - PS[facility]CHIATRY [facility] [place] [facility] Mar 17, 2025 01:30 PM AMBULATORY - MEDICINE [facility] Mar 17, 2025 01:45 PM [facility]ULATORY [facility]IC[facility] [place] [facility] Mar 22, 2025 09:00 AM AMBULATORY - PS[facility]CHIATRY [facility] [place] [facility] Mar 22, 2025 10:30 AM [facility]ORY [facility]IC[facility] [place] [facility] Mar 30, 2025 02:00 PM AMBULATORY - NONE [facility] [place] [facility] Mar 31, 2025 02:00 PM AMBULATORY - PS[facility]CHIATRY [facility] [place] [facility] Apr 09, 2025 11:00 AM AMBULATORY - MEDICINE [facility] [place] [facility] Apr 28, 2025 02:00 PM AMBULATORY - PS[facility]CHIATRY [facility] [place] [facility] May 06, 2025 09:30 AM AMBULATORY - NONE [facility] May 12, 2025 02:00 PM AMBULATORY - PS[facility]CHIATRY [facility] [place] [facility] May 19, 2025 02:00 PM AMBULATORY - PS[facility]CHIATRY [facility] [place] [facility] May 24, 2025 01:00 PM [facility] [place] Jun 30, 2025 11:30 AM [facility] Lab Results: +/- 30 days of the encounter This section includes the Chemistry and Hematology Lab Results on record with [place] for the patient. Radiology Reports and Pathology Reports are provided separately, in subsequent sections. Lab Results This section contains the Chemistry/Hematology Results that were resulted 30 days before or 30 daysafter the date of the Encounter. Date/Time Source Result Type Result - Unit Interpretation Reference Range Specimen Type Comment Feb 22, 2025 10:27 AM [facility] FERRITIN SERUM Specimen Type: SERUM No comment entered. Ordering Provider: FRANNIE AGUERO Report Released Date/Time: Feb 19, 2025 03:06 PM Reporting Lab: [address] [address] Performing Lab: [address] [address] FERRITIN 31.8 ng/mL 21.8-274.7 Feb 22, 2025 10:27 AM [facility] IRON & TIBC PANEL SERUM Specimen Type : SERUM No comment entered. Ordering Provider: FRANNIE AGUERO Report Released Date/Time: Feb 19, 2025 03:06 PM Reporting Lab: [address] [address] Performing Lab: [address] [address] TIBC 367 ug/dL 204-475 IRON 46 ug/dL L 65-175 Transferrin Saturation 12.5 L 15-45 Transferrin (TRF) 278 mg/dL 180-382 Feb 22, 2025 10:27 AM [facility] CBC AND DIFF (AUTO) BLOOD Specimen Ty pe: BLOOD No comment entered. Ordering Provider: FRANNIE AGUERO Report Released Date/Time: Feb 19, 2025 03:06 PM Reporting Lab: [address] [address] Performing Lab: [address] [address] WBC 5.97 10*3/uL 4.50-11.00 RBC 4.01 10*6/uL L 4.23-5.66 HGB 11.5 g/dL L 12.8-17 HCT 35.1 L 39.2-50.4 MCV 87.5 fL 82-99 MCHC 32.8 g/dL 30.8-35.1 PLT 355 10*3/uL 140-360 MPV 9.3 fL 9.2-12.4 RDW-CV 14.1 12.0-16.0 MONO, ABS 0.74 10*3/uL 0.30-1.10 MCH 28.7 pg 26.2-32.6 NEUT % 47.7 43.7-75.8 LYMPH % 34.0 14.0-42.3 MONO % 12.4 5.1-13.7 EOS % 4.7 0.4-6.8 BASO % 1.0 0.1-2.0 NEUT, ABS 2.85 10*3/uL 2.20-7.60 LYMPH, ABS 2.03 10*3/uL 1.00-3.20 EOS, ABS 0.28 10*3/uL 0.03-0.44 BASO, ABS 0.06 10*3/uL 0.01-0.13 IMMATURE GRAN % 0.2 0.0-0.7 IMMATURE GRAN, ABS 0.01 10*3/uL 0.00-0.0 6 NRBC % 0.0 0.0-0.0 NRBC, ABS 0.00 10*3/uL 0.00-0.00 Feb 22, 2025 10:27 AM [facility] BASIC METABOLIC PANEL (fasting) SERUM Specime n Type: SERUM No comment entered. Ordering Provider: MASON CHRISTOPHER Report Released Date/Time: Jan 26, 2025 01:53 PM Reporting Lab: [facility] [address] [address] Performing Lab: [address] [address] UREA NITROGEN 16 mg/dL 8-26 GLUCOSE 103 mg/dL H 65-100 SODIUM 140 mmol/L 136-145 POTASSIUM 4.1 mmol/L 3.5-5.1 CHLORIDE 110 mmol/L H 98-107 CO2 23 meq/L 23-31 CALCIUM 8.8 mg/dL 8.8-10 CREATININE, Serum 0.81 mg/dL 0.72-1.25 eGFR(CKD-EPI 2020) >90 mL/min >60 Jan 25, 2025 12:58 PM [facility] CBC AND DIFF (AUTO) BLOOD Specimen Type: BLOO D No comment entered. Ordering Provider: RK AGUILAR Report Released Date/Time: January 21, 2025 04:16 PM Reporting Lab: [facility] [address] [address] Performing Lab: [facility] [address] [address] WBC 7.74 10*3/uL 4.50-11.00 RBC 3.56 10*6/uL L 4.23-5.66 HGB 10.6 g/dL L 12.8-17 HCT 32.7 L 39.2-50.4 MCV 91.9 fL 82-99 MCHC 32.4 g/dL 30.8-35.1 PLT 606 10*3/uL H 140-360 MPV 9.2 fL 9.2-12.4 RDW-CV 15.1 12.0-16.0 MONO, ABS 0.81 10*3/uL 0.30-1.10 MCH 29.8 pg 26.2-32.6 NEUT % 51.9 43.7-75.8 LYMPH % 32.4 14.0-42.3 MONO % 10.5 5.1-13.7 EOS % 4.0 0.4-6.8 BASO % 0.9 0.1-2.0 NEUT, ABS 4.02 10*3/uL 2.20-7.60 LYMPH, ABS 2.51 10*3/uL 1.00-3.20 EOS, ABS 0.31 10*3/uL 0.03-0.44 BASO, ABS 0.07 10*3/uL 0.01-0.13 IMMATURE GRAN % 0.3 0.0-0.7 IMMATURE GRAN, ABS 0.02 10*3/uL 0.00-0.0 6 NRBC % 0.0 0.0-0.0 NRBC, ABS 0.00 10*3/uL 0.00-0.00 Social History: Smoking Status (Most current) and Tobacco Use (All prior to encounter date) This section includes the most current, and the historical, smoking and tobacco- related health factors from the [place] facility where the Encounter took place. Current Smoking Status This section includes the most current smoking, or tobacco-related health factor, from the [place] facility where the Encounter took place. Date/Time Current Smoking Status Comment Facil ity Jan 26, 2025 01:44 PM VA-TOBACCO USE FOR ANGELA CIGARETTES [facility] Tobacco Use History This section includes a history of the smoking, or tobacco-related health factors, that were collected on or before the date of the Encounter. The data comes from the [place] facility where the Encounter took place. Date/Time Smoking Status/Tobacco Use Comment F acility Jan 26, 2025 01:44 PM VA-TOBACCO USE FOR ANGELA CIGARETTES [facility] Advance Directives: All historical and current Section Date Range: From patient's date of to the date document was created. This section includes ALL of a patient's completed or amended [place] Advance and Rescinded Directives. The entries below indicate that a directive exists for the patient, but an actual copy is not included with this document. The data comes from all [place] facilities. Date Advance Directives Provider Source January 10, 2021 ADVANCE DIRECTIVE DENNISE BRO Radiology Reports: +/- 30 days of the encounter Radiology Reports For cases when an order for radiology services may have been completed prior to the date of the Encounter, the report list includes the Radiology Reports that were completed up to 30 days before dateof the Encounter. For cases when an order for radiology services may have been completed after the date of the Encounter, the report list also includes the Radiology Reports that were completed up to30 days after date of the Encounter. The data comes from all [place] treatment facilities. Date/Time Radiology Report Provider Source Feb 23, 2025 01:47 PM KNEE 3 VIEWS (LEFT): RANCHO TATE [id number] -1955 M Exm Date: FEB 23, 2025@13:47 Req Phys: VIOLETTA THORNTON Loc: [facility] (Req'g Loc) Img Loc: [facility] 1 Service: [place] [address] (Case 170 COMPLETE) KNEE 3 VIEWS (LEFT) (RAD Detailed) CPT:12699 Reason for Study: left knee pain Clinical History: Report Status: Verified Date Reported: FEB 23, 2025 Date Verified: FEB 23, 2025 Automatic Stacker E-Sig:/ES/VIOLETTA KEE Report: X-RAY EXAM OF KNEE 3 REASON FOR STUDY: left knee pain HISTORY: Reason for Study: left knee pain Comparison: Radiographs of the knees March 23, 2021 FINDINGS: Medial compartment joint space narrowing and mild patellofemoral compartment joint space narrowing. Tricompartmental osteophyte formation and subarticular degenerative remodeling. Right-sided chondral meniscal calcinosis. Degenerative changes progressed since 2020 exam. No acute fracture or dislocation. Mild patellar enthesopathy. Impression: Moderate tricompartmental osteoarthritis, progressed since 2020 exam. Primary Diagnostic Code: No immediate attention required Primary Interpreting Staff: VIOLETTA KEE, Staff Physician (Automatic Stacker) /VIOLETTA KUMAR [facility] Feb 22, 2025 09:59 AM SHOULDER,COMPLETE(RIGHT): RANCHO TATE A [id number] -1955 M Ex Date: FEB 22, 2025@09:59 Req Phys: FRANNIE AGUERO Pat Loc: [facility] [employer] (Req'g Loc) Img Loc: [facility] 1 Service: [place] [address] (Case 66 COMPLETE) SHOULDER,COMPLETE(RIGHT) (RAD Detailed) CPT:78048 Proc Modifiers : RIGHT Reason for Study: bialteral shoulder pain Clinical History: Report Status: Verified Date Reported: FEB 22, 2025 Date Verified: FEB 22, 2025 Automatic Stacker E-Sig:/ES/DIRK HOLLAND Report: Accession number: [id number], [id number] Exam: X-RAY EXAM OF SHOULDER, X-RAY EXAM OF SHOULDER Technique: Left and right shoulder 3 views Comparison: 03/12/18 left shoulder 7 shoulder Reason for Study: bilateral shoulder pain FINDINGS: Orthopedic screw in the left glenoid. No acute fracture or subluxation. Normal alignment. Mild joint space narrowing at the glenohumeral and acromioclavicular joints bilaterally. Inferior osteophytes. Impression: No acute findings. Mild bilateral shoulder degeneration. Stable post-surgical changes. Report signed by Dirk Holland on 02/22/2025 7:03 PM Primary Diagnostic Code: No immediate attention required Primary Interpreting Staff: DIRK HOLLAND, Staff Physician (Automatic Stacker) / [facility] Feb 22, 2025 09:59 AM SHOULDER,COMPLETE(LEFT): RANCHO TATE [id number] -1955 M Exm Date: FEB 22, 2025@09:59 Req Phys: FRANNIE AGUERO Loc: [facility] [employer] (Req'g Loc) Img Loc: [facility] 1 Service: [place] [address] (Case 67 COMPLETE) SHOULDER,COMPLETE(LEFT) (RAD Detailed) CPT:46858 Proc Modifiers : LEFT Reason for Study: bialteral shoulder pain Clinical History: Report Status: Verified Date Reported: FEB 22, 2025 Date Verified: FEB 22, 2025 Automatic Stacker E-Sig:/ES/DIRK HOLLAND Report: Accession number: [id number], [id number] Exam: X-RAY EXAM OF SHOULDER, X-RAY EXAM OF SHOULDER Technique: Left and right shoulder 3 views Comparison: 03/12/18 left shoulder 7 shoulder Reason for Study: bilateral shoulder pain FINDINGS: Orthopedic screw in the left glenoid. No acute fracture or subluxation. Normal alignment. Mild joint space narrowing at the glenohumeral and acromioclavicular joints bilaterally. Inferior osteophytes. Impression: No acute findings. Mild bilateral shoulder degeneration. Stable post-surgical changes. Report signed by Dirk Holland on 02/22/2025 7:03 PM Primary Diagnostic Code: No immediate attention required Primary Interpreting Staff: DIRK HOLLAND, Staff Physician (Automatic Stacker) / [facility] Encounter Notes: All associated encounter notes This section contains the clinical notes associated to the Encounter. Date/Time Encounter Note(s) Provider Source Jan 26, 2025 09:46 AM TELEHEALTH NOTE: LOCAL TITLE: [facility] CONNECT PRIMARY CARE STANDARD TITLE: TELEHEALTH NOTE DATE OF NOTE: JAN 26, 2025@09:46 ENTRY DATE: JAN 26, 2025@09:47:01 AUTHOR: MASON CHRISTOPHER COSIGNER: URGENCY: STATUS: COMPLETED VIRTUAL EXAM ROOM: Attendees:[place] VIDEO TELEHEALTH CONSENT Visit: Patient/caregiver verbally consented to visit via telehealth: Yes Visit conducted by clinical . Patient Contact Details: Best contact number for backup communication with patient: PATIENT PHONE - Emergency contact name/number: Primary NOK: JARAD TATELEEN Relation: EXTENDED FAMILY MEMBER [address] [place] [address]. [place] [id number] Patient Location/Surroundings During Visit: Patient confirmed that he/she is in a private and safe location for visit. Patient location during visit: [address] [place] [address], [facility] Other (address of current location, if available): Appointment Type: Routine CHIEF COMPLAINT/GOALS FOR VISIT: Post hospitalization follow up HISTORY OF PRESENT ILLNESS/INTERVAL HISTORY: 69 y/o male with PMH neuroendocrine tumor, rash, herpes simplex, homelessness, ALEXANDRA, lung nodules, ED, low back pain, hx of hep C s/p treatment, glaucoma, former tobacco use, OUD in remission here for post-hospitalization follow up. He was last seen by PCP YRIS Aguero 10/09/2024. Since then, has followed w/ podiatry and MH. Admitted to [facility] 01/07-01/14 after presenting w/ abdominal pain and black stools, he passed out in the ER while having a BM. His hemoglobin was found to be 7.9 and his stool occult blood positive. Emergent EGD showed large clots without being able to visualize source of bleed. Admitted to ICU and given a total of 14 units pRBC, 4FFP, 2 platelets. Underwent IR embolization which was successful and hemoglobin remained stable. Was continued on PPI. After resolution of hemorrhagic shock course c/b hypertensive emergency which required nicardipine gtt. BP became better controlled on lisinopril and toprol. Lisinopril increased to 20mg daily. BPH c/b urinary retention requiring huitron placement. Was started on proscar and will continue huitron for 4 weeks and f/u with urology as outpatient for void trial. PT rec'd STR. Today in clinic: [facility] was switched to phone visit due to technical difficulties. Kobe is present on phone with his . Reports doing well since leaving the hospital, he has not had any recurrent abdominal pain, blood in stool, or black stools. Reports he has an upcoming appt w/ GI on February 18. Confirms he is taking omeprazole 40mg BID and the iron supplement. Reports he still has his huitron in. There is some confusion regarding his BPH meds. D/c summary does not mention tamsulosin. Per previous PCP notes from Sep, kobe was f/b [facility] and his tamsulosin was switched to alfuzosin. Kobe reports he is not taking alfuzosin and he is instead taking tamsulosin BID. He confirms he is taking his finasteride. He has an appt w/ nonVA urology next week and will discuss his BPH meds/have void trial. Will defer to urology management of his BPH especially in light of new urinary retention. He reports he has enough of his finasteride and tamsulosin to last him until this appt and will continue to take these until he sees urology. Reports he is taking lisinopril 20mg and metoprolol 50mg daily. Reports his BP is being monitored by [facility] nurse and yesterday it was 133/70. Confirms he stopped taking aspirin. PAST MEDICAL HISTORY: Active problems - Computerized Problem List is the source for the followin. Neuroendocrine tumor 2. Rash (SCT [id number]) 3. Herpes Simplex Type I 4. Homeless single person 5. Obstructive sleep apnea syndrome 11/2020 SEVERE Apnea Hypopnea Index (AHI) of 92.8/hr 6. Vitamin D Deficiency (SCT 7140906) 09/2020 22 7. Multiple nodules of lung small multiple LDCT 11/2018, 02/2019; 03/2020 - stable next LDCT 03/2022 8. Complaining of erectile dysfunction 9. Dyspnea on exertion PFT: 12/2018 mild ventilatory defect; no rxn to bronchodilator partially ascribed to restrictive effects of obesity 10. Lumbosacral spondylosis 11. History of hepatitis C finished [facility] tx 08/2017. [facility] Gastroenterology services Provider: Rola Elkins 09/2020 - RNA undetected 09/2018 - U/S with elastography unlikely cirrhosis; CT abd 02/2019 shows simple hepatic cysts only mid pancreatic mass - for characterization/biopsy 12. Glaucoma 13. Chronic low back pain 14. Cigarette smoker 08/27 - 1 ppd stopped smoking Sep 2020 15. 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 Housing problem REVIEW OF SYSTEMS: Otherwise negative per HPI MEDICATIONS: Active and Recently Outpatient Medications (excluding Supplies): Active Outpatient Medications Status 1) BRIMONIDINE 0.2%/BRINZOLAMID 1% OPH SUSP INSTILL 1 DROP INTO ACTIVE EACH EYE TWICE DAILY Indication: FOR WIDE-ANGLE GLAUCOMA 2) CAPSAICIN 0.1% CREAM APPLY A SMALL AMOUNT TOPICALLY TWICE ACTIVE DAILY NEEDED APPLIED TO LEFT KNEE TWICE DAILY Indication: FOR LOCALIZED PAIN 3) FINASTERIDE 5MG TAB TAKE ONE TABLET BY MOUTH ONCE DAILY ACTIVE Indication: FOR ENLARGED PROSTATE 4) HYALURONATE NA (DUROLANE)20MG/ML SYR 3ML INJECT 60MG ACTIVE INTRA-ARTICULAR ONE TIME RIGHT KNEE Indication: OSTEOARTHRITIS OF THE KNEE 5) HYDROPHILIC (EQV AQUAPHOR) TOP OINT APPLY LIBERAL AMOUNT ACTIVE TOPICALLY TWICE DAILY NEEDED Indication: FOR DRY SKIN 6) HYDROXYZINE HCL 25MG TAB TAKE ONE TABLET BY MOUTH AT BEDTIME ACTIVE NEEDED FOR - NOTE DOSE Indication: INSOMNIA 7) LISINOPRIL 10MG TAB TAKE ONE TABLET BY MOUTH ONCE DAILY TO ACTIVE CONTROL BLOOD PRESSURE Indication: FOR HIGH BLOOD PRESSURE 8) METOPROLOL SUCCINATE 50MG SA TAB TAKE ONE TABLET BY MOUTH ACTIVE ONCE DAILY FOR BLOOD PRESSURE/HEART Indication: FOR HIGH BLOOD PRESSURE 9) TADALAFIL 20MG TAB TAKE ONE TABLET BY MOUTH ONCE DAILY ACTIVE (S) Indication: FOR ERECTILE DYSFUNCTION Active Non-VA Medications Status 1) Non-VA ASPIRIN 81MG EC TAB 81MG BY MOUTH EVERY DAY ACTIVE 2) Non-VA CYANOCOBALAMIN TAB BY MOUTH ACTIVE 3) Non-VA FERROUS GLUCONATE 324MG TAB 324MG BY MOUTH EVERY ACTIVE OTHER DAY Indication: TO SUPPLEMENT IRON 12 Total Medications OBJECTIVE/VITALS: Exam is limited by phone modality. is alert and oriented. No acute distress. Answering questions appropriately. Pleasant tone. DIAGNOSTIC REPORTS: All labs from 01/25/2025 were reviewed with the . ASSESSMENT/PLAN: #Recent hospitalization for GI bleed -Admitted to [facility] 01/07-01/14 after presenting w/ abdominal pain and black stools, he passed out in the ER while having a BM. His hemoglobin was found to be 7.9 and his stool occult blood positive. Emergent EGD showed large clots without being able to visualize source of bleed. Admitted to ICU and given a total of 14 units pRBC, 4FFP, 2 platelets. Underwent IR embolization which was successful and hemoglobin remained stable. Was continued on PPI. -Today reports he is feeling much better, denies any recurrent s/s of GI bleeding -CBC from yesterday 01/25/2025 showing improvement in H+H to 10.6/32.7 -F/u with GI as scheduled -Continue PPI and iron supplement -Reviewed ER/UC precautions w/ any recurrent abdominal pain, n/v, hematemesis, melena, hematochezia #HTN -During recent hospitalization, he was found to be in hypertensive emergency after resolution of hemorrhagic shock. Initially required nicardipine gtt however he was able to be transitioned to lisinopril 20mg and metoprolol succinate 50mg daily - will repeat chem8 in next 1-2 weeks given dose of lisinopril recently increased -Continue monitoring of home BP by [facility] nurse, reports yesterday it was well controlled at 133/70 #Urinary retention -During recent hospitalization was found to have new urinary retention requiring huitron, he has appt w/ nonVA urologist Dr. 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 Return to clinic: per PCP Send a Secure Message, or call as needed for questions or problems. Medication CHANGES made at this visit: none Medication list was updated as necessary and reviewed in detail. /lyndon/ Mason Christopher MSN, AGNP Nurse Practitioner Signed: 01/26/2025 14:25 MASON CHRISTOPHER [facility]
--- OUTSIDE RECORDS SUMMARY | 2025-01-26 09:44 | XMS_ITS | Encounter Summary ---
Author Name [facility] [place] [facility] [place] [facility] [place] Address [address] [place] [address] Care Team Providers Care Lineman A Class Name Role Phone RK AGUILAR Primary Care Provider Unavailabl e Insurance Providers: [...] Patient's Relationship to Policy Powell MEDICAID MEDICAID [facility] JORDAN JONATHAN Aug 26, 2020 MEDICAI D [id number] KELSEY TATE PATIENT Selected Encounter This section includes the information on record at [place] for the Encounter. Date/Time Encounter Type Encounter Description Reason Pro vider Source Jan 26, 2025 01:44 PM Outpatient Encounter ADMIN PAT ACTIVTIES (MASNONCT) IHE Encounter Template Text not used by [place] Plan of Treatment: Future Appointments (+ 6 months) and Future Tests (+/- 45 days) The Plan of Treatment section includes future care activities for the patient from all [facility] treatment[facility]. This section includes future appointments and future orders which are active, pending or scheduled. Future Appointments This section includes appointments that were scheduled to occur 6 months from the date of the Encounter, up to a maximum of 20 appointments. The data comes from all [place] treatment facilities. Appointment Date/Time Appointment Type Appointme nt Facility Name Feb 18, 2025 11:00 AM AMBULATORY - [facility] Mar 03, 2025 11:00 AM [facility] - MEDICINE [facility] [place] Mar 22, 2025 10:30 AM AMBULATORY - MEDICINE [facility] Mar 30, 2025 02:00 PM [facility] Jun 30, 2025 11:30 AM AMBULATORY - REHAB MEDICIN E [facility] Active, Pending, and Scheduled Orders This section includes a listing of several types of active, pending, and scheduled orders, including clinic medications orders, diagnostic test orders, procedure orders and consult orders; where the start date of the order is 45 days before the date of the Encounter or 45 days after the date of theEncounter. The data comes from all [facility]. Test Date/Time Test Type Test Details Facility Name Jan 26, 2025 12:00 AM Laboratory - Chemi stry Order BASIC METABOLIC PANEL (fasting) BLOOD (SST-SERUM) SP [facility] Lab Results: +/- 30 days of the encounter This section includes the Chemistry and Hematology Lab Results on record with [place] for the patient. Radiology Reports and Pathology Reports are provided separately, in subsequent sections. Lab Results This section contains the Chemistry/Hematology Results that were resulted 30 days before or 30 daysafter the date of the Encounter. Date/Time Source Result Type Result - Unit Interpretation Reference Range Specimen Type Comment Jan 25, 2025 12:58 PM [facility] CBC AND DIFF (AUTO) BLOOD Specimen Type: BLOOD No comment entered. Ordering Provider: RK AGUILAR Report Released Date/Time: January 21, 2025 04:16 PM Reporting Lab: [address] [id number] Performing Lab: [address] [id number] WBC 7.74 10*3/uL 4.50-11.00 RBC 3.56 10*6/uL [...] and tobacco- related health factors from the [place] facility where the Encounter took place. Current Smoking Status This section includes the most current smoking, or tobacco-related health factor, from the [place] facility where the Encounter took place. Date/Time Current Smoking Status Comment Facil ity Jan 26, 2025 01:44 PM VA-TOBACCO USE FOR ANGELA CIGARETTES [facility] Tobacco Use History This section includes a history of the smoking, or tobacco-related health factors, that were collected on or before the date of the Encounter. The data comes from the [place] facility where the Encounter took place. Date/Time Smoking Status/Tobacco Use Comment F achannah Jan 26, 2025 01:44 PM [place]-TOBACCO USE [place] ANGELA CIGARETTES [place] [facility] Advance Directives: All historical and current Section Date Range: From patient's date of to the date document was created. This section includes ALL of a patient's completed or amended [facility] Advance and Rescinded Directives. The entries below indicate that a directive exists for the patient, but an actual copy is not included with this document. The data comes from all [place] facilities. Date Advance Directives Provider Source January 10, 2021 ADVANCE DIRECTIVE DIEUDONNEDENNISE ARRIAGAFIELD Encounter Notes: All associated encounter notes This section contains the clinical notes associated to the Encounter. Date/Time Encounter Note(s) Provider Source Jan 26, 2025 01:44 PM PREVENTIVE MEDICIN E NURSING NOTE: LOCAL TITLE: CLINICAL REMINDERS/NURSING STANDARD TITLE: PREVENTIVE MEDICINE NURSING NOTE DATE OF NOTE: JAN 26, 2025@13:44 ENTRY DATE: JAN 26, 2025@13:44:45 AUTHOR: ROBBY CROOKS COSIGNER: URGENCY: STATUS: COMPLETED Advance Directive Screen MH AD: Patient has an Advance Directive on file at this [facility]. No updates are needed at this time. The patient received education about Advance Directives and written notification of his/her rights. Homelessness/Food Insecurity Screen: In the past 2 months, have you been living in stable housing that you own, rent, or stay in as part of a household? Yes - Living in stable housing. Are you worried or concerned that in the next 2 months you may NOT have stable housing that you own, rent, or stay in as part of a household? No - Not worried about housing near future [facility] reports the following: Within the past 12 months, you worried whether your food would run out before you got money to buy more. Never true Within the past 12 months, the food you bought just didn't last and you didn't have money to get more. Never true Depression Screening: Perform PHQ-2 A PHQ-2 screen was performed. The score was 0 which is a negative screen for depression. Over the past two weeks, how often have you been bothered by the following problems? 1. Little interest or pleasure in doing things Not at all 2. Feeling down, depressed, or hopeless Not at all Tobacco Use Screening: The patient is a former cigarette smoker. The patient has never used other types of tobacco. Td/Tdap Immunization: Phone/Virtual/Telehealth Visit - Patient educated on the need for receiving Tdap immunization either at [facility] or outside facility. Alcohol Use Screen (AUDIT-C): Alcohol Screen: SCREEN FOR ALCOHOL (AUDIT-C) An alcohol screening test (AUDIT-C) was negative (score=1). 1. How often did you have a drink containing alcohol in the past year? Consider a drink to be a 12 ounce can or bottle of regular beer, 8 ounces of malt liquor, a 5 ounce glass of table wine, or a 1.5 ounce shot of liquor (like scotch, gin, or vodka). Monthly or less 2. How many drinks containing alcohol did you have on a typical day when you were drinking in the past year? One or two drinks 3. How often did you have six or more drinks on one occasion in the past year? Never COVID-19 Immunization: Phone/Virtual/Telehealth Visit - Patient educated on the need for receiving COVID-19 (SARS-CoV-2) immunization either at [place] or outside facility. RSV Immunization: Respiratory Syncytial Virus (RSV) Vaccine: Phone/ Virtual/Telehealth Visit - Patient educated on the need for receiving Respiratory Syncytial Virus vaccine either at [facility] or outside facility. Sexual Orientation: The patient thinks of their sexual orientation as: Straight or Heterosexual /lyndon/ ROBBY CROOKS LPN LICENSED PRACTICAL NURSE Signed: 01/26/2025 13:46 [facility]KS [place] [facility]
--- OUTSIDE RECORDS SUMMARY | 2025-02-19 10:30 | XMS_ITS | Encounter Summary ---
Author Name [facility] [place] Organization [facility] [place] Address [address] [place] [address] Care Team Providers Care Display Designer Outside Name Role Phone BRYANNA COUCH Primary Care [...] Patient's Relationship to Policy [place] MEDICAID MEDICAID [facility] CARROL JORDAN JONATHAN Aug 26, 2020 MEDICAI D [id number] KELSEY TATE PATIENT MEDICARE (WNR) MEDICARE (M) PART A Mar 26, 2020 PART A [id number] JASMIN TATE JR PATIENT MEDICARE (WNR) MEDICARE (M) PART B Mar 26, 2020 PART B [id number] JASMIN TATE JR PATIENT Selected Encounter This section includes the information on record at [place] for the Encounter. Date/Time Encounter Type Encounter Description Reason Provider Source Feb 19, 2025 02:30 PM OFFICE O/P EST MOD 30 MIN PRIMARY CARE/MEDICINE ICD-10-CM K92.2 Gastrointestinal hemorrhage, unspecified DANIEL AGUERO Encounter Template Text not used by [place] Assessments - Encounter Diagnoses This section includes the primary and secondary diagnoses documented for the Encounter. Date/Time Primary/Secondary Diagnosis Diagnosis Name Provider Source Feb 25, 2025 02:19 PM PRIMARY Gastrointestinal hemorrhage, unspecified DANIEL AGUERO ADRIANA Feb 25, 2025 02:19 PM SECONDARY Pain in unspecified shoulder DANIEL AGUERO [facility]IR[facility] Plan of Treatment: Future Appointments (+ 6 months) and Future Tests (+/- 45 days) The Plan of Treatment section includes future care activities for the patient from all [place] treatmentfacilities. This section includes future appointments and future orders which are active, pending or scheduled. Future Appointments This section includes appointments that were scheduled to occur 6 months from the date of the Encounter, up to a maximum of 20 appointments. The data comes from all [place] treatment facilities. Appointment Date/Time Appointment Type Appointme nt Facility Name Feb 23, 2025 01:00 PM AMBULATORY [place]ICINE [place] [facility] [place] [facility] Feb 24, 2025 03:00 PM AMBULATORY - MEDICINE [place] [facility] [place] [facility] Mar 03, 2025 11:00 AM AMBULATORY - MEDICINE [facility] Mar 10, 2025 09:00 AM AMBULATORY - PSYCHIATRY [facility] Mar 10, 2025 10:00 AM AMBULATORY - PSYCHIATRY [facility] [place] [facility] Mar 17, 2025 01:30 PM AMBULATORY - MEDICINE [facility] Mar 17, 2025 01:45 PM AMBULATORY [place] MEDICINE [place] [facility] [place] [facility] Mar 22, 2025 09:00 AM AMBULATORY - PS[facility]CHIATRY [facility] [place] [facility] Mar 22, 2025 10:30 AM AMBULATORY - MEDICINE [facility] [place] [facility] Mar 30, 2025 02:00 PM AMBULATORY - NONE [facility] [place] [facility] Mar 31, 2025 02:00 PM AMBULATORY - PSYCHIATRY [facility] [place] [facility] Apr 09, 2025 11:00 AM AMBULATORY - MEDICINE [facility] [place] [facility] Apr 28, 2025 02:00 PM AMBULATORY - PSYCHIATRY [facility] [place] [facility] May 06, 2025 09:30 AM AMBULATORY - NONE [facility] May 12, 2025 02:00 PM AMBULATORY - PSYCHIATRY [facility] [place] [facility] May 19, 2025 02:00 PM AMBULATORY - PSYCHIATRY [facility] [place] [facility] May 24, 2025 01:00 PM AMBULATORY - MEDICINE [facility] [place] [facility] Jun 30, 2025 11:30 AM AMBULATORY - REHAB MEDICIN E [facility] [place] [facility] Jul 07, 2025 11:00 AM [facility] Jul 27, 2025 09:00 AM [facility] [place] [facility] Active, Pending, and Scheduled Orders This section includes a listing of several types of active, pending, and scheduled orders, including clinic medications orders, diagnostic test orders, procedure orders and consult orders; where the start date of the order is 45 days before the date of the Encounter or 45 days after the date of theEncounter. The data comes from all [place] treatment facilities. Test Date/Time Test Type Test Details Facility Name Mar 30, 2025 04:04 PM Consult Order HOME SLEEP STUDY NOX/SPOPC OUTPT Cons End Stapler's Choice [place] [facility] [place] [facility] Mar 30, 2025 04:04 PM Consult Order CVT HOME S LEEP STUDY IFC WHAV Cons End [facility] [place] [facility] [place] [facility] Mar 31, 2025 02:15 PM Consult Order COMMUNITY CARE-OPHTHALMOLOGY Cons End Stapler's Choice [facility] Lab Results: +/- 30 days of the encounter This section includes the Chemistry and Hematology Lab Results on record with [place] for the patient. Radiology Reports and Pathology Reports are provided separately, in subsequent sections. Lab Results This section contains the Chemistry/Hematology Results that were resulted 30 days before or 30 daysafter the date of the Encounter. Date/Time Source Result Type Result - Unit Interpretation Reference Range Specimen Type Comment Feb 22, 2025 10:27 AM [facility] FERRITIN SERUM Specimen Type: SERUM No comment entered. Ordering Provider: FRANNIE AGUERO Report Released Date/Time: Feb 19, 2025 03:06 PM Reporting Lab: [address] [address] Performing Lab: [address] [address] FERRITIN 31.8 ng/mL 21.8-274.7 Feb 22, 2025 10:27 AM [facility] IRON & TIBC PANEL SERUM Specimen Type : SERUM No comment entered. Ordering Provider: FRANNIE AGUERO Report Released Date/Time: Feb 19, 2025 03:06 PM Reporting Lab: [address] [address] Performing Lab: [address] [address] TIBC 367 ug/dL 204-475 IRON 46 ug/dL L 65-175 Transferrin Saturation 12.5 L 15-45 Transferrin (TRF) 278 mg/dL 180-382 Feb 22, 2025 10:27 AM [facility] CBC AND DIFF (AUTO) BLOOD Specimen Ty pe: BLOOD No comment entered. Ordering Provider: FRANNIE AGUERO Report Released Date/Time: Feb 19, 2025 03:06 PM Reporting Lab: [address] [address] Performing Lab: [address] [address] WBC 5.97 10*3/uL 4.50-11.00 RBC 4.01 10*6/uL [...] 10*3/uL 0.00-0.00 Feb 22, 2025 10:27 AM [facility] BASIC METABOLIC PANEL (fasting) SERUM Specime n Type: SERUM No comment entered. Ordering Provider: MASON TURPIN Report Released Date/Time: Jan 26, 2025 01:53 PM Reporting Lab: [address] [address] Performing Lab: [address] [address] UREA NITROGEN 16 mg/dL 8-26 GLUCOSE 103 mg/dL H 65-100 SODIUM 140 mmol/L 136-145 POTASSIUM 4.1 mmol/L 3.5-5.1 CHLORIDE 110 mmol/L H 98-107 CO2 23 meq/L 23-31 CALCIUM 8.8 mg/dL 8.8-10 CREATININE, Serum 0.81 mg/dL 0.72-1.25 eGFR(CKD-EPI 2020) >90 mL/min >60 Jan 25, 2025 12:58 PM [facility] CBC AND DIFF (AUTO) BLOOD Specimen Type: BLOO D No comment entered. Ordering Provider: RK AGUILAR Report Released Date/Time: January 21, 2025 04:16 PM Reporting Lab: [address] [address] Performing Lab: [address] [address] WBC 7.74 10*3/uL 4.50-11.00 RBC 3.56 10*6/uL [...] 0.0 0.0-0.0 NRBC, ABS 0.00 10*3/uL 0.00-0.00 Vital Signs: All taken on the encounter date This section contains inpatient and outpatient Vital Signs collected on the date of the Encounter. Date/Time Temperature Pulse Blood Pressure Respiratory Rate SP02 Pain Height Weight Body Mass Index Source Feb 19, 2025 02:35 PM 96.9 F 77 /min 144/78 mm[Hg] 97 % 258.8 lb 35 [facility] I[facility] Social History: Smoking Status (Most current) and Tobacco Use (All prior to encounter date) This section includes the most current, and the historical, smoking and tobacco- related health factors from the [place] facility where the Encounter took place. Current Smoking Status This section includes the most current smoking, or tobacco-related health factor, from the [place] facility where the Encounter took place. Date/Time Current Smoking Status Comment Teresa perez Nov 26, 2023 02:30 PM [place]-TOBACCO FORMER USER [facility] Tobacco Use History This section includes a history of the smoking, or tobacco-related health factors, that were collected on or before the date of the Encounter. The data comes from the [place] facility where the Encounter took place. Date/Time Smoking Status/Tobacco Use Comment F acility Nov 26, 2023 02:30 PM VA-TOBACCO QUIT < 1 YEAR [facility] Dec 04, 2022 02:00 PM VA-TOBACCO DOESNT USE [place] 30 MIN [facility] Dec 04, 2022 02:00 PM VA-TOBACCO USE 30 YEARS OR MORE [facility] Dec 04, 2022 02:00 PM VA-TOBACCO USE ADVICE [facility] Dec 04, 2022 02:00 PM VA-TOBACCO USE CHIEF BANK EXAMINER NO [facility] Dec 04, 2022 02:00 PM VA-TOBACCO USE MED NOTIFY PROVID ER [facility] Dec 04, 2022 02:00 PM VA-TOBACCO USER EVERY DAY [facility] Sep 20, 2021 01:30 PM VA-TOBACCO DOESNT USE [place] 30 MIN [facility] Sep 20, 2021 01:30 PM VA-TOBACCO USE > 15 LESS THAN 30 YEARS [facility] Sep 20, 2021 01:30 PM VA-TOBACCO USE ADVICE [facility] Sep 20, 2021 01:30 PM VA-TOBACCO USE CHIEF BANK EXAMINER YES [facility] Sep 20, 2021 01:30 PM VA-TOBACCO USE MED NOTIFY [facility] Sep 20, 2021 01:30 PM VA-TOBACCO USER EVERY DAY [facility] Oct 06, 2020 10:30 AM VA-TOBACCO USE > 15 LESS THAN 30 YEARS [facility] Oct 06, 2020 10:30 AM VA-TOBACCO USE ADVICE [facility] Oct 06, 2020 10:30 AM VA-TOBACCO USE CHIEF BANK EXAMINER NO [facility] Oct 06, 2020 10:30 AM VA-TOBACCO USE MED NO [facility] Oct 06, 2020 10:30 AM VA-TOBACCO USE WI 30 MIN OF WAKE UP [facility] Oct 06, 2020 10:30 AM VA-TOBACCO USER EVERY DAY [facility] Nov 17, 2018 10:24 AM VA-TOBACCO DOESNT USE [place] 30 MIN WAKEUP [facility] Nov 17, 2018 10:24 AM VA-TOBACCO USE 30 YEARS OR MORE [facility] Nov 17, 2018 10:24 AM VA-TOBACCO USE ADVICE [facility] Nov 17, 2018 10:24 AM VA-TOBACCO USE CHIEF BANK EXAMINER NO [facility] Nov 17, 2018 10:24 AM VA-TOBACCO USE MED NO [facility] Nov 17, 2018 10:24 AM VA-TOBACCO USER SOME DAYS [facility] Nov 29, 2017 10:45 AM CURRENT SMOKER 1/2 ppd [facility] Nov 29, 2017 10:45 AM V1-PT READY TO QUIT TOBACCO USE [facility] Advance Directives: All historical and current Section Date Range: From patient's date of to the date document was created. This section includes ALL of a patient's completed or amended [place] Advance and Rescinded Directives. The entries below indicate that a directive exists for the patient, but an actual copy is not included with this document. The data comes from all [place] facilities. Date Advance Directives Provider Source January 10, 2021 ADVANCE DIRECTIVE DENNISE BRO [facility] Radiology Reports: +/- 30 days of the [...] the Encounter. The data comes from all [place] treatment facilities. Date/Time Radiology Report Provider Source Feb 23, 2025 01:47 PM KNEE 3 VIEWS (LEFT): JASMIN TATE [id number] -1955 M Exm Date: FEB 23, 2025@13:47 Req Phys: VIOLETTA THORNTON Loc: [facility] 1 (Req'g Loc) Im Loc: [facility] 1 Service: [place] [address] (Case 170 COMPLETE) KNEE 3 VIEWS (LEFT) (RAD Detailed) CPT:22033 Reason for Study: left knee pain Clinical History: Report Status: Verified Date Reported: FEB 23, 2025 Date Verified: FEB 23, 2025 Courier E-Sig:/ES/VIOLETTA KEE Report: X-RAY EXAM OF KNEE [...] Primary Interpreting Staff: VIOLETTA KEE, Staff Physician (Courier) /VIOLETTA KUMAR [facility] Feb 22, 2025 09:59 AM SHOULDER,COMPLETE(RIGHT): JASMIN TATE [id number] -1955 M Exm Date: FEB 22, 2025@09:59 Req Phys: FRANNIE AGUERO Pat Loc: [facility] [employer] TENDER (Req'g Loc) Img Loc: [facility]/BUILDING 1 Service: [place] [address] (Case 66 COMPLETE) SHOULDER,COMPLETE(RIGHT) (RAD Detailed) CPT:04434 Proc Modifiers : RIGHT Reason for Study: bialteral shoulder pain Clinical History: Report Status: Verified Date Reported: FEB 22, 2025 Date Verified: FEB 22, 2025 Courier E-Sig:/ES/DIRK MOSLEY Report: Accession number: [id number], [id number] Exam: X-RAY EXAM OF SHOULDER, X-RAY EXAM [...] Stable post-surgical changes. 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 Report signed by Dirk Mosley on 02/22/2025 7:03 PM Primary Diagnostic Code: No immediate attention required Primary Interpreting Staff: DIRK MOSLEY, Staff Physician (Courier) / DIRK MOSLEY [facility] Encounter Notes: All associated encounter notes This section contains the clinical notes associated to the Encounter. Date/Time Encounter Note(s) Provider Source Feb 22, 2025 02:49 PM PRIMARY CARE TELEP [place] ENCOUNTER NOTE: LOCAL TITLE: TELEPHONE NOTE/PRIMARY CARE STANDARD TITLE: PRIMARY CARE TELEPHONE ENCOUNTER NOTE DATE OF NOTE: FEB 22, 2025@14:49 ENTRY DATE: FEB 22, 2025@14:49:27 AUTHOR: FRANNIE AGUERO COSIGNER: URGENCY: STATUS: COMPLETED Called Vet, discussed most recent labs. Anemia is improving. Shoulder xray pending. Vet has f/.u with [facility] on Sat. He is requesting lab letter left at front end application developer so he can bring to his GI appt. He will pick and shovel worker tomorrow. Vet on OTC iron. /lyndon/ FRANNIE AGUERO NP NURSE PRACTITIONER Signed: 02/22/2025 14:50 FRANNIE AGUERO ADRIANA Feb 22, 2025 02:48 PM ADDENDUM: LOCAL TITLE: Addendum STANDARD TITLE: ADDENDUM DATE OF NOTE: FEB 22, 2025@14:48:37 ENTRY DATE: FEB 22, 2025@14:48:37 AUTHOR: FRANNIE AGUERO COSIGNER: URGENCY: STATUS: COMPLETED Please print. 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 Thank you! /es/ FRANNIE AGUERO NP NURSE PRACTITIONER Signed: 02/22/2025 14:49 Receipt Acknowledged By: 02/22/2025 15:14 /es/ SUKH NELSON --- Original Document --- 02/22/25 PATIENT LETTER (T): JASMIN TATE [address] [place], [place], [address] Dear , As we discussed via telephone, your anemia is improving. Please follow up with [facility] as planned. Your recent test results are as follows: HEMOGLOBIN A1C TREND Collection DT Spec HGBA1c 09/18/2021 10:12 BLOOD 5.3 10/05/2020 10:45 BLOOD 5.1 08/21/2019 09:22 BLOOD 5.4 02/20/2019 09:55 BLOOD 5.5 08/22/2018 07:32 BLOOD 5.5 LAB CHEMISTRY & HEMATOLOGY Collection DT Specimen Test Name Result Units Ref Range 02/22/2025 10:27 SERUM FERRITIN 31.8 ng/mL 21.8 - 274.7 02/22/2025 10:27 SERUM TIBC 367 ug/dL 204 - 475 IRON 46 L ug/dL 65 - 175 TranSat 12.5 L % 15 - 45 Transferrin (TRF) 278 mg/dL 180 - 382 02/22/2025 10:27 BLOOD WBC 5.97 10*3/uL 4.50 - 11.00 RBC 4.01 L 10*6/uL 4.23 - 5.66 HGB 11.5 L g/dL 12.8 - 17 HCT 35.1 L % 39.2 - 50.4 MCV 87.5 fl 82 - 99 MCH 28.7 pg 26.2 - 32.6 MCHC 32.8 g/dL 30.8 - 35.1 RDW-CV 14.1 % 12.0 - 16.0 PLT 355 10*3/uL 140 - 360 MPV 9.3 fL 9.2 - 12.4 NEUT % 47.7 % 43.7 - 75.8 LYMPH % 34.0 % 14.0 - 42.3 MONO % 12.4 % 5.1 - 13.7 EOS % 4.7 % 0.4 - 6.8 BASO % 1.0 % 0.1 - 2.0 IMMATURE GRAN % 0.2 % 0.0 - 0.7 NRBC % 0.0 % 0.0 - 0.0 NEUT, ABS 2.85 10*3/uL 2.20 - 7.60 LYMPH, ABS 2.03 10*3/uL 1.00 - 3.20 MONO, ABS 0.74 10*3/uL 0.30 - 1.10 EOS, ABS 0.28 10*3/uL 0.03 - 0.44 BASO, ABS 0.06 10*3/uL 0.01 - 0.13 IMMATURE GRAN, AB 0.01 10*3/uL 0.00 - 0.06 NRBC, ABS 0.00 10*3/uL 0.00 - 0.00 02/22/2025 10:27 SERUM CALCIUM 8.8 mg/dL 8.8 - 10 CREATININE, Serum 0.81 mg/dL 0.72 - 1.25 eGFR(CKD-EPI 2020 >90 mL/min Ref: >=60 SODIUM 140 mmol/L 136 - 145 POTASSIUM 4.1 mmol/L 3.5 - 5.1 CHLORIDE 110 H mmol/L 98 - 107 CO2 23 mEq/L 23 - 31 UREA NITROGEN 16 mg/dL 8 - 26 GLUCOSE 103 H mg/dL 65 - 100 IMAGING IMPRESSION Date Procedure CPT Status Case # 02/22/2025 SHOULDER,COMPLETE(RIGHT) [id number] 02/22/2025 SHOULDER,COMPLETE(LEFT) [id number] Please call if you have any questions or concerns. Upcoming Appointments: 02/23/2025 13:00 [facility] 1 02/24/2025 15:00 COM CARE-GI GENERAL 03/03/2025 11:00 [facility] PODIAT[facility] 1 03/22/2025 10:30 [facility] 1 03/30/2025 14:00 [facility] HOURLY ASSOCIATE DME W EDUC 1 06/30/2025 11:30 [facility] SPN SLY MENDEZ 08/05/2025 13:00 [facility] OPTOMETRY 1 PM FRANNIE AGUERO [facility] Feb 22, 2025 02:45 PM LETTERS: LOCAL TITLE: PATIENT LETTER (T) STANDARD TITLE: LETTERS DATE OF NOTE: FEB 22, 2025@14:45 ENTRY DATE: FEB 22, 2025@14:45:24 AUTHOR: FRANNIE AGUEROIGNER: URGENCY: STATUS: COMPLETED PATIENT LETTER (T) Has ADDENDA DEPARTMENT OF [facility] Toll Free Number Primary Care Telephone Assistance can be reached at extension [phone] [facility] scheduling can be reached at extension [phone] [facility] scheduling can be reached at ext [phone] JASMIN TATE [address] [place], [place], [address] Dear , As we discussed via telephone, your anemia is improving. Please follow up with [facility]PS[facility] as planned. Your recent test results are as follows: HEMOGLOBIN A1C TREND Collection DT Spec HGBA1c 09/18/2021 10:12 BLOOD 5.3 10/05/2020 10:45 BLOOD 5.1 08/21/2019 09:22 BLOOD 5.4 02/20/2019 09:55 BLOOD 5.5 08/22/2018 07:32 BLOOD 5.5 LAB CHEMISTRY & HEMATOLOGY Collection DT Specimen Test Name Result Units Ref Range 02/22/2025 10:27 SERUM FERRITIN 31.8 ng/mL 21.8 - 274.7 02/22/2025 10:27 SERUM TIBC 367 ug/dL 204 - 475 IRON 46 L ug/dL 65 - 175 TranSat 12.5 L % 15 - 45 Transferrin (TRF) 278 mg/dL 180 - 382 02/22/2025 10:27 BLOOD WBC 5.97 10*3/uL 4.50 - 11.00 RBC 4.01 L 10*6/uL 4.23 - 5.66 HGB 11.5 L g/dL 12.8 - 17 HCT 35.1 L % 39.2 - 50.4 MCV 87.5 fl 82 - 99 MCH 28.7 pg 26.2 - 32.6 MCHC 32.8 g/dL 30.8 - 35.1 RDW-CV 14.1 % 12.0 - 16.0 PLT 355 10*3/uL 140 - 360 MPV 9.3 fL 9.2 - 12.4 NEUT % 47.7 % 43.7 - 75.8 LYMPH % 34.0 % 14.0 - 42.3 MONO % 12.4 % 5.1 - 13.7 EOS % 4.7 % 0.4 - 6.8 BASO % 1.0 % 0.1 - 2.0 IMMATURE GRAN % 0.2 % 0.0 - 0.7 NRBC % 0.0 % 0.0 - 0.0 NEUT, ABS 2.85 10*3/uL 2.20 - 7.60 LYMPH, ABS 2.03 10*3/uL 1.00 - 3.20 MONO, ABS 0.74 10*3/uL 0.30 - 1.10 EOS, ABS 0.28 10*3/uL 0.03 - 0.44 BASO, ABS 0.06 10*3/uL 0.01 - 0.13 IMMATURE GRAN, AB 0.01 10*3/uL 0.00 - 0.06 NRBC, ABS 0.00 10*3/uL 0.00 - 0.00 02/22/2025 10:27 SERUM CALCIUM 8.8 mg/dL 8.8 - 10 CREATININE, Serum 0.81 mg/dL 0.72 - 1.25 eGFR(CKD-EPI 2020 >90 mL/min Ref: >=60 SODIUM 140 mmol/L 136 - 145 POTASSIUM 4.1 mmol/L 3.5 - 5.1 CHLORIDE 110 H mmol/L 98 - 107 CO2 23 mEq/L 23 - 31 UREA NITROGEN 16 mg/dL 8 - 26 GLUCOSE 103 H mg/dL 65 - 100 IMAGING IMPRESSION Date Procedure CPT Status Case # 02/22/2025 SHOULDER,COMPLETE(RIGHT) [id number] 02/22/2025 SHOULDER,COMPLETE(LEFT) [id number] Please call if you have any questions or concerns. Upcoming Appointments: 02/23/2025 13:00 [facility] 1 02/24/2025 15:00 COM CARE-GI GENERAL 03/03/2025 11:00 [facility] PODIATRY 1 03/22/2025 10:30 [facility] 1 03/30/2025 14:00 [facility] HOURLY ASSOCIATE DME W EDUC 1 06/30/2025 11:30 [facility] SPN SLY MENDEZ 08/05/2025 13:00 [facility] OPTOMETRY 1 PM 02/22/2025 ADDENDUM STATUS: COMPLETED Please print. 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 Thank you! /lyndon/ FRANNIE AGUERO NP NURSE PRACTITIONER Signed: 02/22/2025 14:49 Receipt Acknowledged By: * AWAITING SIGNATURE * SUKH RAMOS Sincerely, Your Primary Care Team [facility] [address] [facility] [address] [place] [address] [place] [address] [phone] [facility] [address] [place] [address] [place] [address] [facility] [address] [facility] [place] [id number] [place] [address] FRANNIE AGUERO [place] Feb 19, 2025 02:40 PM PRIMARY CARE NURSE PRACTITIONER OUTPATIENT NOTE: LOCAL TITLE: NURSE PRACTITIONER OUTPATIENT NOTE STANDARD TITLE: PRIMARY CARE NURSE PRACTITIONER OUTPATIENT NOTE DATE OF NOTE: FEB 19, 2025@14:40 ENTRY DATE: FEB 19, 2025@14:40:13 AUTHOR: FRANNIE AGUERO COSIGNER: URGENCY: STATUS: COMPLETED NURSE PRACTITIONER OUTPATIENT NOTE Has ADDENDA CC Presents today for follow up GI bleed in December. HPI This is a 69 y/o male with history of Active problems - Computerized Problem List is the source for the followin. Neuroendocrine tumor 2. Rash (SCT 291907390) 3. Herpes Simplex Type I 4. Homeless single person 5. Obstructive sleep apnea syndrome 11/2020 SEVERE Apnea Hypopnea Index (AHI) of 92.8/hr 6. Vitamin D Deficiency (SCT 1325161) 09/2020 7. Multiple nodules of lung small multiple LDCT 11/2018, 02/2019; 03/2020 - stable next LDCT 03/2022 8. Complaining of erectile dysfunction 9. Dyspnea on exertion PFT: 12/2018 mild ventilatory defect; no rxn to bronchodilator partially ascribed to restrictive effects of obesity 10. Lumbosacral spondylosis 11. History of hepatitis C finished [facility] tx 08/2017. [facility] Provider: Rola Elkins 09/2020 - RNA undetected 09/2018 - U/S with elastography unlikely cirrhosis; CT abd 02/2019 shows simple hepatic cysts only mid pancreatic mass - for characterization/biopsy 12. Glaucoma 13. Chronic low back pain 14. Cigarette smoker 08/27 - 1 ppd stopped smoking Sep 2020 15. 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 Housing problem Seen by YRIS Turpin 01/26/25--per previous visit note September 2024 FIT positive Admitted to [facility] 01/08/25 for GI bleed, had 16 pints of blood. GI appt yesterday at [facility]. Per PCP P[place] note 02/25/25: Admitted to [facility] 01/07-01/14 after presenting w/ abdominal pain and [...] outpatient for void trial. PT rec'd STR. Reports on January 05 was home, sweating. [place] like a ball in his stomach. Wnet by EMS to [facility], found to have GI bleed. Was having black stools. Went to ED , passed out while in ED. Reports had arterial bleed in his abdomen --two areas with clots in abdomen. Hemorrhagic shock followed by hypertensive emergency. 14 units PRBC, 4 FFP, 2 platelets. He recently saw his oncologist. No dark stools since dicharge, slowly getting stronger Bilateral shoulder pain. Right shoulder pain worse since hospitalization. No pain at rest only with movement of shoulders and rotation. R>L Will check xrays. He is avoiding all NSAIDS including ASA. ALLERGIES Data on this list may not be complete. Please check JLV. FACILITY ALLERGY/ADR -------- No Remote Allergy/ADR Data available for this patient [facility] [place] [facility] No Known Allergies MEDICATIONS: Active and Recently Outpatient Medications (excluding Supplies): Active Outpatient Medications Status 1) CAPSAICIN 0.1% CREAM APPLY A SMALL AMOUNT TOPICALLY TWICE ACTIVE DAILY NEEDED APPLIED TO LEFT KNEE TWICE DAILY Indication: FOR LOCALIZED PAIN 2) FINASTERIDE 5MG TAB TAKE ONE TABLET BY MOUTH ONCE DAILY ACTIVE Indication: FOR ENLARGED PROSTATE 3) HYALURONATE NA (DUROLANE)20MG/ML SYR 3ML INJECT 60MG ACTIVE INTRA-ARTICULAR ONE TIME RIGHT KNEE Indication: OSTEOARTHRITIS OF THE KNEE 4) HYDROPHILIC (EQV AQUAPHOR) TOP OINT APPLY LIBERAL AMOUNT ACTIVE TOPICALLY TWICE DAILY NEEDED Indication: FOR DRY SKIN 5) HYDROXYZINE HCL 25MG TAB TAKE ONE TABLET BY MOUTH AT BEDTIME ACTIVE NEEDED FOR - NOTE DOSE Indication: INSOMNIA 6) LISINOPRIL 20MG TAB TAKE ONE TABLET BY MOUTH ONCE DAILY TO ACTIVE CONTROL BLOOD PRESSURE Indication: FOR HIGH BLOOD PRESSURE 7) METOPROLOL SUCCINATE 50MG SA TAB TAKE ONE TABLET BY MOUTH ACTIVE (S) ONCE DAILY FOR BLOOD PRESSURE/HEART Indication: FOR HIGH BLOOD PRESSURE 8) TADALAFIL 20MG TAB TAKE ONE TABLET BY MOUTH ONCE DAILY ACTIVE Indication: FOR ERECTILE DYSFUNCTION Inactive Outpatient Medications Status 1) BRIMONIDINE 0.2%/BRINZOLAMID 1% OPH SUSP INSTILL 1 DROP INTO EACH EYE TWICE DAILY Indication: FOR WIDE-ANGLE GLAUCOMA Active Non-VA Medications Status 1) Non-VA CYANOCOBALAMIN TAB BY MOUTH ACTIVE 2) Non-VA FERROUS GLUCONATE 324MG TAB 324MG BY MOUTH EVERY ACTIVE OTHER DAY Indication: TO SUPPLEMENT IRON 11 Total Medications PE General:NAD RESP clear to auscultation bilaterally CV RR S1 S2 (-) Pedal Edema GI BS + x 4, soft, nontender, nondistended, no rebound or guarding NEURO CN II-XII without focal deficit, gait steady without shuffle, MENTAL A&Ox3 Appropriate, Pleasant, Cooperative VITALS 96.9 F [36.1 C] (02/19/2025 14:35) 77 (02/19/2025 14:35) 20 (09/02/2024 13:48) 144/78 (02/19/2025 14:35) 7 (09/23/2024 13:06) 72 in [182.9 cm] (03/23/2024 14:52) 258.8 lb [117.39 kg] (02/19/2025 14:35) BMI: 35.2 A/P Vet admitted with GI bleed -seen in follow up by [facility] last week who told him to follow up at [facility] that is where he was admitted -commented on consult to request coverage -feeling better, stronger, no black stools -will check CBC today as last with residual anemia -vet was noted to be to have low iron 10/09/24, FIT test positive, consult placed for GI, started on iron, rpt cbc 1 month later was stable, no anemia, with improved iron stores prior to hospitalization for GI bleed. -Continue PPI and iron supplement -Reviewed ER/UC precautions including any abdominal pain, n/v, hematemesis, melena, hematochezia; he verbalized understanding. Chornic Bilateral shoulder pain R>L worse after hospitalization -no pain at rest only with movement of shoulder joints/rotation -will check xrays -consider OT. F/u in one month Medication Reconciliation: Outpatient: Has the patient been taking medications as documented in the EMLR? YES: The patient has been taking medications as documented in the EMLR. Essential Medication List for Review used to complete this medication reconciliation. INCLUDED IN THIS LIST: Alphabetical list of active outpatient prescriptions dispensed from this [facility] (local) and dispensed from another [place] or [facility] facility (remote) as well as inpatient orders (local, pending and active), local clinic medications, locally documented non-VA medications, and local prescriptions that have or been discontinued in the past 90 days. - All changes in medications, including all non-VA/Herbal/OTC medications were entered into CPRS. - If there were any medications the patient should no longer take, they were discontinued. - The patient/caregiver was instructed to update this list, discard old lists, and take this list to the next appointment, whether with a VA or non-VA provider. /shania AGUERO NP NURSE PRACTITIONER Signed: 02/25/2025 14:40 02/25/2025 ADDENDUM STATUS: COMPLETED Bilateral shoulders with full range of motion. Pain to anterior and lateral palpation of right shoulder, mild bicep tendon tenderness. Strength 5./5 BUE. Pain with overhead lifting of arms, rotation shoulders. R>L. /shania AGUERO NP NURSE PRACTITIONER Signed: 02/25/2025 14:45 FRANNIE AGUERO
--- OUTSIDE RECORDS SUMMARY | 2025-02-23 09:00 | XMS_ITS ---
Author Name [facility] [place] Organization [facility] [place] Address [address] [place] [address] Care Team Providers Care Anodizer Name Role Phone BRYANNA COUCH Primary Care [...] Patient's Relationship to Policy [place] MEDICAID MEDICAID [place] JONATHAN Aug 26, 2020 MEDICAI D [id number] KELSEY TATE PATIENT MEDICARE (WNR) MEDICARE (M) PART A Mar 26, 2020 PART A [id number] JASMIN TATE JR PATIENT MEDICARE (WNR) MEDICARE (M) PART B Mar 26, 2020 PART B [id number] JASMIN TATE JR PATIENT Selected Encounter This section includes the information on record at [place] for the Encounter. Date/Time Encounter Type Encounter Description Reason Provider Source Feb 23, 2025 01:00 PM OFFICE O/P EST MOD 30 MIN PM&RS PHYSICIAN ICD-10-CM M17.12 Unilateral primary osteoarthritis, left knee DANIEL THORNTON IHE Encounter Template Text not used by [place] Assessments - Encounter Diagnoses This section includes the primary and secondary diagnoses documented for the Encounter. Date/Time Primary/Secondary Diagnosis Diagnosis Name Provider Source Feb 23, 2025 01:53 PM PRIMARY Unilateral primary osteoarthritis, left knee DANIEL THORNTON [place] [facility] [place] [facility] Plan of Treatment: Future Appointments (+ 6 months) and Future Tests (+/- 45 days) The Plan of Treatment section includes future care activities for the patient from all [place] treatmentfacilities. This section includes future appointments and future orders which are active, pending or scheduled. Future Appointments This section includes appointments that were scheduled to occur 6 months from the date of the Encounter, up to a maximum of 20 appointments. The data comes from all [place] treatment facilities. Appointment Date/Time Appointment Type Appointme nt Facility Name Feb 24, 2025 03:00 PM AMBULATORY - [place]ICINE [place] [facility] [place] [facility] Mar 03, 2025 11:00 AM AMBULATORY - MEDICINE [facility] Mar 10, 2025 09:00 AM AMBULATORY - PSYCHIATRY [facility] Mar 10, 2025 10:00 AM AMBULATORY - PSYCHIATRY [place] [facility] [place] [facility] Mar 17, 2025 01:30 PM AMBULATORY - MEDICINE [facility] Mar 17, 2025 01:45 PM AMBULATORY - [place]ICINE [place] [facility] [place] [facility] Mar 22, 2025 09:00 AM AMBULATORY - PS[place]CHIATRY [place] [facility] [place] [facility] Mar 22, 2025 10:30 AM AMBULATORY - [place]ICINE [place] [facility] [place] [facility] Mar 30, 2025 02:00 PM AMBULATORY - NONE [place] [facility] [place] [facility] Mar 31, 2025 02:00 PM AMBULATORY - PSYCHIATRY [facility] [place] [facility] Apr 09, 2025 11:00 AM AMBULATORY - MEDICINE [place] [facility] [place] [facility] Apr 28, 2025 02:00 PM AMBULATORY - PSYCHIATRY [facility] [place] [facility] May 06, 2025 09:30 AM AMBULATORY - NONE [facility] May 12, 2025 02:00 PM AMBULATORY - PSYCHIATRY [facility] [place] [facility] May 19, 2025 02:00 PM AMBULATORY - PSYCHIATRY [facility] [place] [facility] May 24, 2025 01:00 PM AMBULATORY - MEDICINE [place] [facility] [place] [facility] Jun 30, 2025 11:30 AM AMBULATORY - REHAB MEDICIN [place] [facility] [place] [facility] Jul 07, 2025 11:00 AM AMBULATORY - MEDICINE [place] Jul 27, 2025 09:00 AM AMBULATORY - MEDICINE [place] [facility] [place] [facility] Jul 27, 2025 09:01 AM AMBULATORY - [place]IC[place] [facility] Active, Pending, and Scheduled Orders This section includes a listing of several types of active, pending, and scheduled orders, including clinic medications orders, diagnostic test orders, procedure orders and consult orders; where the start date of the order is 45 days before the date of the Encounter or 45 days after the date of theEncounter. The data comes from all [place] treatment facilities. Test Date/Time Test Type Test Details Facility Name Mar 30, 2025 04:04 PM Consult Order HOME SLEEP STUDY NOX/SPOPC OUTPT Cons Transplan[facility] [place] [facility] [place] [facility] Mar 30, 2025 04:04 PM Consult Order CVT HOME S LEEP STUDY IFC WHAV Cons [facility] [place] [facility] [place] [facility] Mar 31, 2025 02:15 PM Consult Order COMMUNITY CARE-OPHTHALMOLOGY Cons [facility] Lab Results: +/- 30 days of the encounter This section includes the Chemistry and Hematology Lab Results on record with VA for the patient. Radiology Reports and Pathology Reports are provided separately, in subsequent sections. Lab Results This section contains the Chemistry/Hematology Results that were resulted 30 days before or 30 daysafter the date of the Encounter. Date/Time Source Result Type Result - Unit Interpretation Reference Range Specimen Type Comment Feb 22, 2025 10:27 AM [facility] FERRITIN SERUM Specimen Type: SERUM No comment entered. Ordering Provider: FRANNIE AGUERO Report Released Date/Time: Feb 19, 2025 03:06 PM Reporting Lab: [address] [address] Performing Lab: [address] [address] FERRITIN 31.8 ng/mL 21.8-274.7 Feb 22, 2025 10:27 AM [facility] IRON & TIBC PANEL SERUM Specimen Type : SERUM No comment entered. Ordering Provider: FRANNIE AGUERO Report Released Date/Time: Feb 19, 2025 03:06 PM Reporting Lab: [address] [address] Performing Lab: [address] [address] TIBC 367 ug/dL 204-475 IRON 46 ug/dL L 65-175 Transferrin Saturation 12.5 L 15-45 Transferrin (TRF) 278 mg/dL 180-382 Feb 22, 2025 10:27 AM [facility] CBC AND DIFF (AUTO) BLOOD Specimen Ty pe: BLOOD No comment entered. Ordering Provider: FRANNIE AGUERO Report Released Date/Time: Feb 19, 2025 03:06 PM Reporting Lab: [address] [address] Performing Lab: [address] [address] WBC 5.97 10*3/uL 4.50-11.00 RBC 4.01 10*6/uL [...] 10*3/uL 0.00-0.00 Feb 22, 2025 10:27 AM [facility] BASIC METABOLIC PANEL (fasting) SERUM Specime n Type: SERUM No comment entered. Ordering Provider: MASON CHRISTOPHER Report Released Date/Time: Jan 26, 2025 01:53 PM Reporting Lab: [address] [address] Performing Lab: [address] [address] UREA NITROGEN 16 mg/dL 8-26 GLUCOSE 103 mg/dL H 65-100 SODIUM 140 mmol/L 136-145 POTASSIUM 4.1 mmol/L 3.5-5.1 CHLORIDE 110 mmol/L H 98-107 CO2 23 meq/L 23-31 CALCIUM 8.8 mg/dL 8.8-10 CREATININE, Serum 0.81 mg/dL 0.72-1.25 eGFR(CKD-EPI 2020) >90 mL/min >60 Jan 25, 2025 12:58 PM [facility] CBC AND DIFF (AUTO) BLOOD Specimen Type: BLOO D No comment entered. Ordering Provider: RK AGUILAR Report Released Date/Time: January 21, 2025 04:16 PM Reporting Lab: [address] [address] Performing Lab: [address] [address] WBC 7.74 10*3/uL 4.50-11.00 RBC 3.56 10*6/uL [...] Height Weight Body Mass Index Source Feb 23, 2025 01:02 PM 130/70 mm[Hg] 10 [facility] Social History: Smoking Status (Most current) and Tobacco Use (All prior to encounter date) This section includes the most current, and the historical, smoking and tobacco- related health factors from the [place] facility where the Encounter took place. Current Smoking Status This section includes the most current smoking, or tobacco-related health factor, from the [place] facility where the Encounter took place. Date/Time Current Smoking Status Comment Facil ity Jan 26, 2025 01:44 PM VA-TOBACCO USE FOR ANGELA CIGARETTES [facility] Tobacco Use History This section includes a history of the smoking, or tobacco-related health factors, that were collected on or before the date of the Encounter. The data comes from the [place] facility where the Encounter took place. Date/Time Smoking Status/Tobacco Use Comment F acility Jan 26, 2025 01:44 PM VA-TOBACCO USE FOR ANGELA CIGARETTES [facility] Advance Directives: All historical and current Section Date Range: From patient's date of to the date document was created. This section includes ALL of a patient's completed or amended VA Advance and Rescinded Directives. The entries below indicate that a directive exists for the patient, but an actual copy is not included with this document. The data comes from all [place] facilities. Date Advance Directives Provider Source January [...] the Encounter. The data comes from all [place] treatment facilities. Date/Time Radiology Report Provider Source Feb 23, 2025 01:47 PM KNEE 3 VIEWS (LEFT): JASMIN TATE [id number] -1955 M Ex Date: FEB 23, 2025@13:47 Req Phys: LEODAN THORNTON Loc: [facility] MED REHAB PA 1 (Req'g Loc) Im Loc: [facility] 1 Service: [place] [address] (Case 170 COMPLETE) KNEE 3 VIEWS (LEFT) (RAD Detailed) CPT:41506 Reason for Study: left knee pain Clinical History: Report Status: Verified Date Reported: FEB 23, 2025 Date Verified: FEB 23, 2025 Dipper Operator E-Sig:/ES/LEODAN KEE Report: X-RAY EXAM OF KNEE 3 [...] No immediate attention required Primary Interpreting Staff: LEODAN KEE, Staff Physician (Dipper Operator) /LEODAN KUMAR [facility] Feb 22, 2025 09:59 AM SHOULDER,COMPLETE(RIGHT): JASMIN TATE [id number] -1955 M Exm Date: FEB 22, 2025@09:59 Req Phys: FRANNIE AGUERO Loc: [facility] PACT FIRM FOOT GATHERER (Req'g Loc) Img Loc: [facility]/BUILDING 1 Service: [place] [address] (Case 66 COMPLETE) SHOULDER,COMPLETE(RIGHT) (RAD Detailed) CPT:17925 Proc Modifiers : RIGHT Reason for Study: bialteral shoulder pain Clinical History: Report Status: Verified Date Reported: FEB 22, 2025 Date Verified: FEB 22, 2025 Dipper Operator E-Sig:/ES/DIRK HOLLAND Report: Accession number: [id number], [id number] Exam: X-RAY EXAM OF SHOULDER, X-RAY EXAM [...] Primary Interpreting Staff: DIRK HOLLAND, Staff Physician (Dipper Operator) / DIRK HOLLAND [facility] Feb 22, 2025 09:59 AM SHOULDER,COMPLETE(LEFT): JASMIN TATE [id number] 1955 M Exm Date: FEB 22, 2025@09:59 Req Phys: MARCO AGUEROFelipa RAMIRO Pat Loc: [facility] (Req'g Loc) Img Loc: [facility]/BUILDING 1 Service: Unknown [facility] [place] [id number] (Case 67 COMPLETE) SHOULDER,COMPLETE(LEFT) (RAD Detailed) CPT:02199 Proc Modifiers : LEFT Reason for Study: bialteral shoulder pain Clinical History: Report Status: Verified Date Reported: FEB 22, 2025 Date Verified: FEB 22, 2025 Dipper Operator E-Sig:/ES/DIRK HOLLAND Report: Accession number: [id number], [id number] Exam: X-RAY EXAM OF SHOULDER, X-RAY EXAM [...] Primary Interpreting Staff: DIRK HOLLAND, Staff Physician (Dipper Operator) / DIKR HOLLAND [facility] Encounter Notes: All associated encounter notes This section contains the clinical notes associated to the Encounter. Date/Time Encounter Note(s) Provider Source Feb 23, 2025 01:37 PM PHYSICAL MEDICINE REHAB NOTE: LOCAL TITLE: PM&R BACK/JOINT PROCEDURE NOTE STANDARD TITLE: PHYSICAL MEDICINE REHAB NOTE DATE OF NOTE: FEB 23, 2025@13:37 ENTRY DATE: FEB 23, 2025@13:37:50 AUTHOR: LEODAN THORNTON COSIGNER: URGENCY: STATUS: COMPLETED PROCEDURE: Left intra-articular knee injection with cortisone. INDICATION: Knee pain. ANESTHESIA: None. INFORMED CONSENT: Obtained verbally, and through [facility]. Since August 's activity has diminished considerably. In December he developed a GI bleed and was hospitalized at [facility] for 6 days. Multiple transfusions were provided. He still is in the midst of a workup. 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 He has been having more pain over the last several weeks. Pain levels are upwards of 7 out of 10 on analog scale. Extending the knee is bothersome. Pain is primarily in the medial joint line but additionally anteriorly over the pes anserine. No significant swelling noted. He has a right antalgic gait. The steps of the procedure, potential risks and benefits of the intra-articular knee injection, as well as alternatives were discussed with patient. The potential risks include, but not limited to: local injection reaction, pain, bruising/hematoma, nerve damage, temporary increase in blood sugar (if applicable), adverse side effects to cortisone or lidocaine including rash/itching, infection, and swelling of the knee. Patient agreed to proceed with the injection. TIME OUT NOTE TIME:Feb@13:00 correctly stated: [X]Full name: JASMIN TATE A [X]Last 4 of SS#: [id number] [X]: Mar PROVIDER NAME: Leodan Thornton PA-c STAFF NAME: Lot #: [id number] Exp: December 2025 The procedure was performed with the patient in the seated position. Chlorhexidine x 3 for an anteromedial approach. 25-gauge 1/2 inch needle advanced into the intercondylar notch. After negative aspiration for heme injected with 2 cc of 1% lidocaine, 2 cc of 0.5% bupivacaine and 40 mg triamcinolone. Needle was withdrawn and Band-Aid applied. No complications. No blood loss. The patient tolerated the procedure well without any immediate adverse side effects. Patient was instructed on the use of ice prn post injection pain/swelling. The patient was able to ambulate out of the office today, and was discharged home with instructions to monitor for any adverse reactions/side effects, and to contact me with any issues. Pre-procedure pain level:7/10 Post-procedure pain level:2/10 [place] will proceed with home exercise program. He had a significant period of decreased activity due to GI bleed. Still involved in GI workup. Will proceed with x-rays today. If significant arthritic changes identified,he may wish to consider joint replacement once all of the issues with the GI have been addressed. Symptoms appear to be focal to the medial joint line. If there is not a great deal of degenerative change, I will consider MRI and possible arthroscopy. /lyndon/ LEODAN THORNTON [facility] Signed: 02/23/2025 13:53 LEODAN THORNTON [facility]
--- OUTSIDE RECORDS SUMMARY | 2025-03-17 09:45 | XMS_ITS | Encounter Summary ---
Author Name [facility] Organization [facility] Address [address] [place] [address] Care Team Providers Care Product Blending Supervisor Name Role Phone BRYANNA COUCH Primary Care [...] Relationship to Policy [place] MEDICAID MEDICAID ELIOT CAL ORTEGA JONATHAN Aug 26, 2020 MEDICAI D [id number] KELSEY TATE PATIENT MEDICARE (WNR) MEDICARE (M) PART A Mar 26, 2020 PART A [id number] JASMIN TATE JR PATIENT MEDICARE (WNR) MEDICARE (M) PART B Mar 26, 2020 PART B [id number] JASMIN TATE JR PATIENT Selected Encounter This section includes the information on record at [facility] for the Encounter. Date/Time Encounter Type Encounter Description Reason Provider Source Mar 17, 2025 01:45 PM OFFICE O/P EST MOD 30 MIN PRIMARY CARE/MEDICINE ICD-10-CM B35.4 VANESSA Rob Encounter Template Text not used by [facility] Assessments - Encounter Diagnoses This section includes the primary and secondary diagnoses documented for the Encounter. Date/Time Primary/Secondary Diagnosis Diagnosis Name Provider Source Mar 17, 2025 03:00 PM PRIMARY Tinea kellyis VANESSA THAKKAR [place] Plan of Treatment: Future Appointments (+ 6 months) and Future Tests (+/- 45 days) The Plan of Treatment section includes future care activities for the patient from all [place] treatmentfacilities. This section includes future appointments and future orders which are active, pending or scheduled. Future Appointments This section includes appointments that were scheduled to occur 6 months from the date of the Encounter, up to a maximum of 20 appointments. The data comes from all [place] treatment facilities. Appointment Date/Time Appointment Type Appointme nt Facility Name Mar 22, 2025 09:00 AM AMBULATORY - [...] 06, 2025 09:30 AM AMBULATORY - NONE [facility] May 12, 2025 02:00 PM AMBULATORY - [...] 2025 11:00 AM [facility] Jul 27, 2025 09:00 AM [facility]IC[facility] [place] Jul 27, 2025 09:01 AM [facility]IC[facility] [place] [facility] Aug 05, 2025 01:00 PM AMBULATORY - MEDICINE [facility] [place] [facility] Active, Pending, and Scheduled Orders This section includes a listing of several types of active, pending, and scheduled orders, including clinic medications orders, diagnostic test orders, procedure orders and consult orders; where the start date of the order is 45 days before the date of the Encounter or 45 days after the date of theEncounter. The data comes from all [place] treatment facilities. Test Date/Time Test Type Test Details Facility Name Mar 30, 2025 04:04 PM Consult Order HOME SLEEP STUDY NOX/SPOPC OUTPT Cons [employer] Operator's Choice [facility] [place] [facility] Mar 30, 2025 04:04 PM Consult Order CVT HOME S LEEP STUDY IFC WHAV Cons [employer] Operator's Choice [facility] [place] [facility] Mar 31, 2025 02:15 PM Consult Order COMMUNITY CARE-OPHTHALMOLOGY Cons [employer] Operator's Choice [place] Lab Results: +/- 30 days of the encounter This section includes the Chemistry and Hematology Lab Results on record with [facility] for the patient. Radiology Reports and Pathology Reports are provided separately, in subsequent sections. Lab Results This section contains the Chemistry/Hematology Results that were resulted 30 days before or 30 daysafter the date of the Encounter. Date/Time Source Result Type Result - Unit Interpretation Reference Range Specimen Type Comment Feb 22, 2025 10:27 AM [place] FERRITIN SERUM Specimen Type: SERUM No comment entered. Ordering Provider: FRANNIE AGUERO Report Released Date/Time: Feb 19, 2025 03:06 PM Reporting Lab: [address] [id number] Performing Lab: [address] [address] FERRITIN 31.8 ng/mL 21.8-274.7 Feb 22, 2025 10:27 AM [place] IRON & TIBC PANEL SERUM Specimen Type : SERUM No comment entered. Ordering Provider: FRANNIE AGUERO Report Released Date/Time: Feb 19, 2025 03:06 PM Reporting Lab: [address] [id number] Performing Lab: [address] [address] TIBC 367 ug/dL 204-475 IRON 46 ug/dL L 65-175 Transferrin Saturation 12.5 L 15-45 Transferrin (TRF) 278 mg/dL 180-382 Feb 22, 2025 10:27 AM [place] CBC AND DIFF (AUTO) BLOOD Specimen Ty pe: BLOOD No comment entered. Ordering Provider: FRANNIE AGUERO Report Released Date/Time: Feb 19, 2025 03:06 PM Reporting Lab: [facility] [address] [address] Performing Lab: [facility] [address] [facility] [facility] [address] WBC 5.97 10*3/uL 4.50-11.00 RBC 4.01 10*6/uL [...] 10*3/uL 0.00-0.00 Feb 22, 2025 10:27 AM [facility] BASIC METABOLIC PANEL (fasting) SERUM Specime n Type: SERUM No comment entered. Ordering Provider: MASON CHRISTOPHER Report Released Date/Time: Jan 26, 2025 01:53 PM Reporting Lab: [facility] [address] [facility] [address] Performing Lab: [facility] [address] [facility] [address] UREA NITROGEN 16 mg/dL 8-26 GLUCOSE 103 mg/dL H 65-100 SODIUM 140 mmol/L 136-145 POTASSIUM 4.1 mmol/L 3.5-5.1 CHLORIDE 110 mmol/L H 98-107 CO2 23 meq/L 23-31 CALCIUM 8.8 mg/dL 8.8-10 CREATININE, Serum 0.81 mg/dL 0.72-1.25 eGFR(CKD-EPI 2020) >90 mL/min >60 Vital Signs: All taken on the encounter date This section contains inpatient and outpatient Vital Signs collected on the date of the Encounter. Date/Time Temperature Pulse Blood Pressure Respiratory Rate SP02 Pain Height Weight Body Mass Index Source Mar 17, 2025 01:05 PM 98 F 80 /min 144/83 mm[Hg] 16 /min 98 % 0 [place] Social History: Smoking Status (Most current) and Tobacco Use (All prior to encounter date) This section includes the most current, and the historical, smoking and tobacco- related health factors from the [place] facility where the Encounter took place. Current Smoking Status This section includes the most current smoking, or tobacco-related health factor, from the [place] facility where the Encounter took place. Date/Time Current Smoking Status Comment Teresa ity Nov 26, 2023 02:30 PM VA-TOBACCO FORMER USER [place] Tobacco Use History This section includes a history of the smoking, or tobacco-related health factors, that were collected on or before the date of the Encounter. The data comes from the [place] facility where the Encounter took place. Date/Time Smoking Status/Tobacco Use Comment F acility Nov 26, 2023 02:30 PM VA-TOBACCO QUIT < 1 YEAR [place] Dec 04, 2022 02:00 PM VA-TOBACCO DOESNT USE WI 30 MIN WAKEUP [place] Dec 04, 2022 02:00 PM VA-TOBACCO USE 30 YEARS OR MORE [place] Dec 04, 2022 02:00 PM VA-TOBACCO USE ADVICE [place] Dec 04, 2022 02:00 PM VA-TOBACCO USE FORENSIC NURSE NO [place] Dec 04, 2022 02:00 PM VA-TOBACCO USE MED NOTIFY PROVID ER [place] Dec 04, 2022 02:00 PM VA-TOBACCO USER EVERY DAY [place] Sep 20, 2021 01:30 PM VA-TOBACCO DOESNT USE WI 30 MIN WAKEUP [place] Sep 20, 2021 01:30 PM VA-TOBACCO USE > 15 LESS THAN 30 YEARS [place] Sep 20, 2021 01:30 PM VA-TOBACCO USE ADVICE [place] Sep 20, 2021 01:30 PM VA-TOBACCO USE FORENSIC NURSE YES [place] Sep 20, 2021 01:30 PM VA-TOBACCO USE MED NOTIFY PROVID ER [place] Sep 20, 2021 01:30 PM VA-TOBACCO USER EVERY DAY [place] Oct 06, 2020 10:30 AM VA-TOBACCO USE > 15 LESS THAN 30 YEARS [place] Oct 06, 2020 10:30 AM VA-TOBACCO USE ADVICE [place] Oct 06, 2020 10:30 AM VA-TOBACCO USE FORENSIC NURSE NO [place] Oct 06, 2020 10:30 AM VA-TOBACCO USE MED NO [place] Oct 06, 2020 10:30 AM VA-TOBACCO USE WI 30 MIN OF WAKE UP [place] Oct 06, 2020 10:30 AM VA-TOBACCO USER EVERY DAY [place] Nov 17, 2018 10:24 AM VA-TOBACCO DOESNT USE WI 30 MIN WAKEUP [place] Nov 17, 2018 10:24 AM VA-TOBACCO USE 30 YEARS OR MORE [place] Nov 17, 2018 10:24 AM VA-TOBACCO USE ADVICE [place] Nov 17, 2018 10:24 AM VA-TOBACCO USE FORENSIC NURSE NO [place] Nov 17, 2018 10:24 AM VA-TOBACCO USE MED NO [place] Nov 17, 2018 10:24 AM VA-TOBACCO USER SOME DAYS [place] Nov 29, 2017 10:45 AM CURRENT SMOKER 1/2 ppd [place] Nov 29, 2017 10:45 AM V1-PT READY TO QUIT TOBACCO USE [place] Advance Directives: All historical and current Section Date Range: From patient's date of to the date document was created. This section includes ALL of a patient's completed or amended [place] Advance and Rescinded Directives. The entries below indicate that a directive exists for the patient, but an actual copy is not included with this document. The data comes from all [place] facilities. Date Advance Directives Provider Source January [...] the Encounter. The data comes from all [place] treatment facilities. Date/Time Radiology Report Provider Source Feb 23, 2025 01:47 PM KNEE 3 VIEWS (LEFT): JASMIN TATE A [id number] -1955 M Exm Date: FEB 23, 2025@13:47 Req Phys: VIOLETTA THORNTON Loc: [facility] (Req'g Loc) Img Loc: [facility] 1 Service: [place] [address] (Case 170 COMPLETE) KNEE 3 VIEWS (LEFT) (RAD Detailed) CPT:62035 Reason for Study: left knee pain Clinical History: Report Status: Verified Date Reported: FEB 23, 2025 Date Verified: FEB 23, 2025 Jira Developer E-Sig:/ES/VIOLETTA KEE Report: X-RAY EXAM OF KNEE [...] Primary Interpreting Staff: VIOLETTA KEE, Staff Physician (Jira Developer) /VIOLETTA KUMAR [facility] Feb 22, 2025 09:59 AM SHOULDER,COMPLETE(RIGHT): LEAPRIYACAROL [id number] -1955 M Exm Date: FEB 22, 2025@09:59 Req Phys: FRANNIE AGUERO Pat Loc: [facility] [employer] (Req'g Loc) Img Loc: [facility]: [facility] [place] [address] (Case 66 COMPLETE) SHOULDER,COMPLETE(RIGHT) (RAD Detailed) CPT:62606 Proc Modifiers : RIGHT Reason for Study: bialteral shoulder pain Clinical History: Report Status: Verified Date Reported: FEB 22, 2025 Date Verified: FEB 22, 2025 Jira Developer E-Sig:/ES/DIRK MOSLEY Report: Accession number: [id number], [id number] Exam: X-RAY EXAM OF SHOULDER, X-RAY EXAM [...] Primary Interpreting Staff: DIRK MOSLEY, Staff Physician (Jira Developer) / DIRK MOSLEY [facility] Feb 22, 2025 09:59 AM SHOULDER,COMPLETE(LEFT): JASMIN TATE [id number] [facility]-1955 M Exm Date: FEB 22, 2025@09:59 Req Phys: FRANNIE AGUERO Loc: [facility] [employer] [facility] [facility] (Req'g Loc) Img Loc: [facility] 1 Service: [facility] [place] [place] (Case 67 COMPLETE) SHOULDER,COMPLETE(LEFT) (RAD Detailed) CPT:92324 Proc Modifiers : LEFT Reason for Study: bialteral shoulder pain Clinical History: Report Status: Verified Date Reported: FEB 22, 2025 Date Verified: FEB 22, 2025 Jira Developer E-Sig:/ES/DIRK MOSLEY Report: Accession number: [id number], [id number] Exam: X-RAY EXAM OF SHOULDER, X-RAY EXAM [...] Primary Interpreting Staff: DIRK MOSLEY, Staff Physician (Jira Developer) / DIRK MOSLEYRL [facility] Encounter Notes: All associated encounter notes This section contains the clinical notes associated to the Encounter. Date/Time Encounter Note(s) Provider Source Mar 17, 2025 02:14 PM PHYSICIAN TAVO Jonas NOTE: LOCAL TITLE: PA NOTE STANDARD TITLE: PHYSICIAN LEATHER GRADER NOTE DATE OF NOTE: MAR 17, 2025@14:14 ENTRY DATE: MAR 17, 2025@14:14:38 AUTHOR: VANESSA THAKKAR EXP COSIGNER: URGENCY: STATUS: COMPLETED SICK CALL VISIT HPI: 69 year old AA male presents with concerns of recurrence of rash on chest and now on his face consistent with previous rash seen by dermatology. He was given a cream that mostly resolved the rash. Nonpruritic but looks unsightly. Cannot recall medication name but it was a white cream in a blue box . No pain. No fevers. No new exposures. Endorses darkening of rash during summer. REVIEW OF SYSTEMS: A 12 point review of systems is negative except as noted in the HPI. Active Medical Problems: Active Problem Neuroendocrine tumor D3A.8 05/13/2023 ZULY STUART Rash ([facility] [id number]) R21. 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 11/19/2022 ANISHA ANTHONY Homeless single person Z59.0 03/09/2021 SELENE GUERIN Obstructive sleep apnea syndrome G4 12/19/2020 NARCISO,ZULY Vitamin D Deficiency (SCT [id number]) 10/18/2020 NARCISO,ZULY Multiple nodules of lung R91.1 10/14/2024 FRANNIE AGUERO Complaining of erectile dysfunction 09/16/2019 NARCISO,ZULY Dyspnea on exertion R69. 03/02/2019 NARCISO,ZULY Lumbosacral spondylosis M47.897 12/09/2018 MICHAEL HERNANDEZ History of hepatitis C B18.2 05/11/2023 LEAH STUARTLINARIO Glaucoma H40.9 11/29/2017 ANDRÉS KUMAR Chronic low back pain M54.5 11/29/2017 ANDRÉS KUMAR Cigarette smoker Z72.0 11/28/2020 ANDRÉS KUMAR Opioid dependence in remission F11. 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) TOP OINT APPLY LIBERAL AMOUNT ACTIVE TOPICALLY TWICE DAILY NEEDED Indication: FOR DRY SKIN HYDROXYZINE HCL 25MG TAB TAKE ONE TABLET BY MOUTH AT ACTIVE BEDTIME NEEDED FOR - NOTE DOSE Indication: INSOMNIA LISINOPRIL 20MG TAB TAKE ONE TABLET BY MOUTH ONCE DAILY TO ACTIVE CONTROL BLOOD PRESSURE Indication: FOR HIGH BLOOD PRESSURE METOPROLOL SUCCINATE 50MG SA TAB TAKE ONE TABLET BY MOUTH ACTIVE (S) ONCE DAILY FOR BLOOD PRESSURE/HEART Indication: FOR HIGH BLOOD PRESSURE TADALAFIL 20MG TAB TAKE ONE TABLET BY MOUTH ONCE DAILY ACTIVE Indication: FOR ERECTILE DYSFUNCTION TERBINAFINE HCL 1% CREAM APPLY A THIN LAYER TOPICALLY PENDING TWICE DAILY Indication: FUNGAL INFECTION Non-VA CYANOCOBALAMIN TAB BY MOUTH ACTIVE Non-VA FERROUS GLUCONATE 324MG TAB 324MG BY MOUTH EVERY ACTIVE OTHER DAY Indication: TO SUPPLEMENT IRON 11 Total Medications Allergies: Patient has answered NKA Date Vital Measurement Qualifiers 03/17/2025 13:05 Temp F (C) 98 (36.7) Pulse 80 Respir 16 BP 144/83 Pain 0 POx (L/Min)(%) 98 At Rest FOCUSED EXAMINATION GEN: WD, NAD INT: Large patch of minimally raised darker than skin tone lesions sternal region and infra-pectoral with satellite lesions present. Left facial papules with darker than skin tone lesions. NTTP. MDM: No evidence of acute bacterial infection. had good results with Terbinafine ointment in the past. Will repeat treatment. If persists, consider dermatology for repeat evaluation. RTC PRN ASSESSMENT/PLAN Tinea corporis as above On this date of the encounter, I spent 30 minutes on some or all of the following: chart review, history, physical examination, treatment planning, education and counseling of the patient/family/daycare assistant, placing orders, communicating with other health care providers and documentation in the electronic health record. able to verbalize understanding of plan of care and agrees. >> MEDICATIONS Reviewed and reconciled with [place] /[place]/ VANESSA HOLT MS,PA-C PHYSICIAN LEATHER GRADER Signed: 03/17/2025 15:57 VANESSA THAKKAR
--- OUTSIDE RECORDS SUMMARY | 2025-03-22 05:00 | XMS_ITS ---
Author Name [facility] Address [address] [place] [address] Care Team Providers Care Inside Sales Professional Name Role Phone BRYANNA COUCH Primary Care [...] Patient's Relationship to Policy [place] MEDICAID MEDICAID [facility] JONATHAN Aug 26, 2020 MEDICAI D [id number] KELSEY TATE PATIENT MEDICARE (WNR) MEDICARE (M) PART A Mar 26, 2020 PART A [id number] JASMIN TATE JR PATIENT MEDICARE (WNR) MEDICARE (M) PART B Mar 26, 2020 PART B [id number] JASMIN TATE JR PATIENT Selected Encounter This section includes the information on record at NE for the Encounter. Date/Time Encounter Type Encounter Description Reason Provider Source Mar 22, 2025 09:00 AM PSYCH DIAGNOSTIC EVALUATION SUBSTANCE USE DISORDER IND ICD-10-CM F11.20 Opioid dependence, uncomplicated KELLEE CHOUDHURY IHNasir Encounter Template Text not used by NE Assessments - Encounter Diagnoses This section includes the primary and secondary diagnoses documented for the Encounter. Date/Time Primary/Secondary Diagnosis Diagnosis Name Provider Source Mar 22, 2025 12:49 PM PRIMARY Opioid dependence, uncomplicated KELLEE CHOUDHURY Y [place] [facility] [place] [facility] Mar 22, 2025 12:49 PM SECONDARY Major depressive disorder, recurrent, mild KELLEE CHOUDHURY Y [place] [facility] [place] [facility] Plan of Treatment: Future Appointments (+ 6 months) and Future Tests (+/- 45 days) The Plan of Treatment section includes future care activities for the [facility] This section includes future appointments and future orders which are active, pending or scheduled. Future Appointments This section includes appointments that were scheduled to occur 6 months from the date of the Encounter, up to a maximum of 20 appointments. The data comes from all NE treatment facilities. Appointment Date/Time Appointment Type Appointme nt Facility Name Mar 30, 2025 02:00 PM AMBULATORY - NONE [facility] [place] [facility] Mar 31, 2025 02:00 PM AMBULATORY - PSYCHIATRY [facility] [place] [facility] Apr 09, 2025 11:00 AM AMBULATORY - MEDICINE [facility] [place] [facility] Apr 28, 2025 02:00 PM AMBULATORY - PSYCHIATRY [facility] [place] [facility] May 06, 2025 09:30 AM AMBULATORY - NONE [place] May 12, 2025 02:00 PM AMBULATORY - PSYCHIATRY [facility] [place] [facility] May 19, 2025 02:00 PM AMBULATORY - PSYCHIATRY [facility] [place] [facility] May 24, 2025 01:00 PM AMBULATORY - MEDICINE [facility] [place] [facility] Jun 30, 2025 11:30 AM AMBULATORY - REHAB MEDICIN E [facility] [place] [facility] Jul 07, 2025 11:00 AM AMBULATORY - MEDICINE [place] Jul 27, 2025 09:00 AM AMBULATORY - MEDICINE [facility] [place] [facility] Jul 27, 2025 09:01 AM AMBULATORY - [place]ICINE [place] [facility] Aug 05, 2025 01:00 PM AMBULATORY - MEDICINE [place] [facility] [place] [facility] Active, Pending, and Scheduled Orders This section includes a listing of several types of active, pending, and scheduled orders, including clinic medications orders, diagnostic test orders, procedure orders and consult orders; where the start date of the order is 45 days before the date of the Encounter or 45 days after the date of theEncounter. The data comes from all NE treatment facilities. Test Date/Time Test Type Test Details Facility Name Mar 30, 2025 04:04 PM Consult Order HOME SLEEP STUDY NOX/SPOPC OUTPT Cons Machine Bookkeeper's Choice [facility] [place] [facility] Mar 30, 2025 04:04 PM Consult Order CVT HOME S LEEP STUDY IFC WHAV Cons [facility] Choice [facility] [place] [facility] Mar 31, 2025 02:15 PM Consult Order COMMUNITY CARE-OPHTHALMOLOGY Cons [facility] [place] Lab Results: +/- 30 days of the [...] Type Comment Feb 22, 2025 10:27 AM [place] FERRITIN SERUM Specimen Type: SERUM No comment entered. Ordering Provider: FRANNIE AGUERO Report Released Date/Time: Feb 19, 2025 03:06 PM Reporting Lab: [address] [address] Performing Lab: [address] [address] FERRITIN 31.8 ng/mL 21.8-274.7 Feb 22, 2025 10:27 AM [facility] IRON & TIBC PANEL SERUM Specimen Type : SERUM No comment entered. Ordering Provider: FRANNIE AGUERO Report Released Date/Time: Feb 19, 2025 03:06 PM Reporting Lab: [address] [address] Performing Lab: [address] [address] TIBC 367 ug/dL 204-475 IRON 46 ug/dL L 65-175 Transferrin Saturation 12.5 L 15-45 Transferrin (TRF) 278 mg/dL 180-382 Feb 22, 2025 10:27 AM [place] CBC AND DIFF (AUTO) BLOOD Specimen Ty pe: BLOOD No comment entered. Ordering Provider: FRANNIE AGUERO Report Released Date/Time: Feb 19, 2025 03:06 PM Reporting Lab: [facility] [address] [address] Performing Lab: [facility] [address] [address] WBC 5.97 10*3/uL 4.50-11.00 RBC 4.01 10*6/uL [...] 10*3/uL 0.00-0.00 Feb 22, 2025 10:27 AM [facility] BASIC METABOLIC PANEL (fasting) SERUM Specime n Type: SERUM No comment entered. Ordering Provider: MASON CHRISTOPHER Report Released Date/Time: Jan 26, 2025 01:53 PM Reporting Lab: [facility] [address] [address] Performing Lab: [facility] [address] [address] UREA NITROGEN 16 mg/dL 8-26 GLUCOSE 103 [...] Height Weight Body Mass Index Source Mar 22, 2025 10:32 AM 97.5 F 60 /min 153/84 mm[Hg] 16 /min 96 % 4 [facility] Social History: Smoking Status (Most current) and Tobacco Use (All prior to encounter date) This section includes the most current, and the historical, smoking and tobacco- related health factors from the NE facility where the Encounter took place. Current Smoking Status This section includes the most current smoking, or tobacco-related health factor, from the NE facility where the Encounter took place. Date/Time Current Smoking Status Comment Teresa perez Jan 26, 2025 01:44 PM VA-TOBACCO NEVER U SED OTHER TYPE [facility] Tobacco Use History This section includes a history of the smoking, or tobacco-related health factors, that were collected on or before the date of the Encounter. The data comes from the NE facility where the Encounter took place. Date/Time Smoking Status/Tobacco Use Comment F bimal Jan 26, 2025 01:44 PM VA-TOBACCO USE FOR ANGELA CIGARETTES [facility] Advance Directives: All historical and current Section Date Range: From patient's date of to the date document was created. This section includes ALL of a patient's completed or amended NE Advance and Rescinded Directives. The entries below indicate that a directive exists for the patient, but an actual copy is not included with this document. The data comes from all NE facilities. Date Advance Directives Provider Source January [...] the Encounter. The data comes from all [place] treatment facilities. Date/Time Radiology Report Provider Source Feb 23, 2025 01:47 PM KNEE 3 VIEWS (LEFT): JASMIN TATE A [id number] -1955 M Exm Date: FEB 23, 2025@13:47 Req Phys: VIOLETTA THORNTON Loc: [facility] 1 (Req'g Loc) Img Loc: [facility]/BUILDING 1 Service: [facility] [place] [address] (Case [id number] COMPLETE) KNEE 3 VIEWS (LEFT) (RAD Detailed) CPT:27794 Reason for Study: left knee pain Clinical History: Report Status: Verified Date Reported: FEB 23, 2025 Date Verified: FEB 23, 2025 Chief Accounting Officer E-Sig:/ES/VIOLETTA KEE Report: X-RAY EXAM OF KNEE [...] Primary Interpreting Staff: VIOLETTA KEE, Staff Physician (Chief Accounting Officer) /VIOLETTA KUMAR [facility] Feb 22, 2025 09:59 AM SHOULDER,COMPLETE(RIGHT): JASMIN TATE [id number] -1955 M Exm Date: FEB 22, 2025@09:59 Req Phys: FRANNIE AGUERO Loc: [facility] RN ADMISSIONS (Req'g Loc) Img Loc: [facility] 1 Service: [place] [address] (Case 66 COMPLETE) SHOULDER,COMPLETE(RIGHT) (RAD Detailed) CPT:47233 Proc Modifiers : RIGHT Reason for Study: bialteral shoulder pain Clinical History: Report Status: Verified Date Reported: FEB 22, 2025 Date Verified: FEB 22, 2025 Chief Accounting Officer E-Sig:/ES/DIRK MOSLEY Report: Accession number: [id number], [id number] Exam: X-RAY EXAM OF SHOULDER, X-RAY EXAM [...] Primary Interpreting Staff: DIRK MOSLEY, Staff Physician (Chief Accounting Officer) / DIRK MOSLEY [facility] Feb 22, 2025 09:59 AM SHOULDER,COMPLETE(LEFT): JASMIN TATE [id number] 1955 M Exm Date: FEB 22, 2025@09:59 Req Phys: FRANNIE AGUERO Loc: [facility] RN ADMISSIONS (Req'g Loc) Img Loc: [facility] 1 Service: [place] [address] (Case 67 COMPLETE) SHOULDER,COMPLETE(LEFT) (RAD Detailed) CPT:91951 Proc Modifiers : LEFT Reason for Study: bialteral shoulder pain Clinical History: Report Status: Verified Date Reported: FEB 22, 2025 Date Verified: FEB 22, 2025 Chief Accounting Officer E-Sig:/ES/DIRK MOSLEY Report: Accession number: [id number], [id number] Exam: X-RAY EXAM OF SHOULDER, X-RAY EXAM [...] Primary Interpreting Staff: DIRK MOSLEY, Staff Physician (Chief Accounting Officer) / DIRK MOSLEY [facility] Encounter Notes: All associated encounter notes This section contains the clinical notes associated to the Encounter. Date/Time Encounter Note(s) Provider Source Mar 22, 2025 12:45 PM MENTAL HEALTH CONS ULT: LOCAL TITLE: CONSULT REPORT/[facility] OUTPATIENT MENTAL HEALTH ASS STANDARD TITLE: MENTAL HEALTH CONSULT DATE OF NOTE: MAR 22, 2025@12:45 ENTRY DATE: MAR 22, 2025@12:45:39 AUTHOR: ALICIA CHOUDHURY COSIGNER: URGENCY: STATUS: COMPLETED Intake Update from [facility] Outpatient Mental Health Assessment Note on: 01/09/2021 Two Patient Identifiers Used: {X } Full Name {X} Facial Recognition INFORMED CONSENT TO PARTICIPATE IN ASSESSMENT: At beginning of session reviewed rights and limits of confidentiality, mandatory reporting situations, duty to warn and protect, Xiao Warning, (if treatment team finds patient to be an acute danger to himself or others, that this information could be relayed to a court of law and presented to a parachutist/combatant diver qualified), and DOD access for active duty service members. Provided Suicide Prevention Hotline number, and other contact numbers as necessary. IDENTIFYING INFORMATION: JASMIN TATE Mar [id number] SERVICE CONNECTED % - 30 MARITAL STATUS - Presenting problem: Patient reported that he is going through rough patches here. Patient reported that not too long ago he had a GI Bleed and was intubated for 6 days, 14 pints worth of blood transfusion. Patient reported that sometime thinking that his life is worthless and what has he done. Patient reported that he currently lives with his daughter. Patient reported that he got into depression after this occurring and the started using Oxycodone and Percocet's after a surgery in the and then got hooked on them and they took him off of it. Patient reported that this is when he started using Heroin for the pain, then got out of service (Got a General Under Honorable Conditions Discharge) then went home back to [place], then his father who was happy with him when he joined the [employer], then found out that he was using drugs and put 2 and 2 together then kicked him out of the house. Pertinent history of present illness (including current medications): See CPRS Medication List for List of Current Active Medications Pertinent past psychiatric history: None reported. Patient reported going to Detox's in the past. Pertinent medical history: Multiple nodules of lung; Neuroendocrine tumor; History of hepatitis C; Rash; Herpes Simplex Type I; Obstructive sleep apnea syndrome; Cigarette smoker; Vitamin D Deficiency; Complaining of erectile dysfunction; Dyspnea on exertion; Lumbosacral spondylosis; Housing problem; Opioid dependence in remission; Chronic low back pain; Glaucoma Pertinent family, social, developmental history: From [facility] Outpatient Mental Health Assessment Note on 01/09/2021 : [ Parents at an early age, [place] stayed living with his father. Relationship with siblings and his mother is distant. The communicates with his family members infrequently. at the age of 20. The 's marriage resulted in four daughters. In 1996, . denies childhood trauma, except a difficult relationship with his father and he has a limited relationship with his mother. He feels he is a disappointment to his mother. ] and work history: From [facility] Outpatient Mental Health Assessment Note on 01/09/2021 : [ joined the [employer] in 1974. 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 After undergoing arm surgery, he was given an honorable discharge. [place] began using substances while serving in the [employer]. He believed that leaving the [employer] and moving out from [place] would help him with his drug addiction. It was not the place he was in, but himself, he realized. The was not subjected to traumatic events. ] AD [employer] From 1974 to 1975. Patient reported that his job was [employer]. OCCUPATION- Unemployed/ Retired MSE: Patient was orientated x4. Patient made good eye contact, dressed was appropriately dressed. Patient reported current bilateral knee, and lower back pain, 7/10. Patient denied suicidal or homicidal ideation or plan at this time. ASSESSMENT MEASUREMENT BASED CARE: Provided psychoeducation on the role of Measurement Based Care (MBC) in treatment and agreed to follow measurement over time with the following intervals: Weekly: BAM-IOP Monthly: BAM-R Weekly: BAM-IOP Monthly: BAM-R MBC Collect BAM-R Date/Results: MBC Share During today's session we discussed the clinical symptoms and/or functioning measures collected as part of: measurement-based care, with focus on how the information reflects the [place]'s experience in treatment and discussed changes in reported outcomes. Additional Information: x MBC Act Following discussion of [place]'s reported outcomes, we discussed the impact on treatment goals. As a result the treatment plan will [] remain the same [] be modified: BAM-R on 03/22/2025: Use: 14 Risk: 93 Protective: 64 C-SSRS on 03/22/2025: Suicide Screen: C-SSRS Screening [place]-Suicide Severity Rating Scale (C-SSRS Screener) 1. Over the past month, have you wished you were or wished you could go to sleep and not wake up? No 2. Over the past month, have you had any actual thoughts of killing yourself? No 3. Over the past month, have you been thinking about how you might do this? Response not required due to responses to other questions. 4. Over the past month, have you had these thoughts and had some intention of acting on them? Response not required due to responses to other questions. 5. Over the past month, have you started to work out or worked out the details of how to kill yourself? Response not required due to responses to other questions. 6. If yes, at any time in the past month did you intend to carry out this plan? Response not required due to responses to other questions. 7. In your lifetime, have you ever done anything, started to do anything, or prepared to do anything to end your life (for example, collected pills, obtained a gun, gave away valuables, went to the roof but didn't jump)? No 8. If YES, was this within the past 3 months? Response not required due to responses to other questions. SUBSTANCE USE UPDATE: ALCOHOL: Age of onset: 10-year-old. Method of acquiring substance (i.e. illegal, prescription, etc.): Bought at Store Means of use (oral, inhalation, IV): Orally Consumed Only Pattern of use (i.e. continuous, episodic, binge/heavy episode): Episodic Duration (how long have you been using for the most recent episode): Approximately 1 to 2.5 years Frequency: Maybe 3 times in the past 12 months. Amount: Approximatley 1 shot of liquor per day of use Last use: Approximately 1 week ago. What was your longest period of abstinence?: Approximatley 3 to 4 months. Problematic use: Check all that apply with respect to this substance: [ ] The substance is often taken in larger amounts or over a longer period than was intended. [ ] There is a persistent desire or unsuccessful efforts to cut down or control substance use. [ ] A great deal of time is spent in activities necessary to obtain the substance, use the substance, or recover from its effects. [ ] Craving, or a strong desire or urge to use the substance. [ ] Recurrent substance use resulting in a failure to fulfill major role obligations at work, school, or home. [ ] Continued substance use despite having persistent or recurrent social or interpersonal problems caused or exacerbated by the effects of the substance? [ ] Important social, occupational, or recreational activities are given up or reduced because of substance use. [ ] Recurrent substance use in situations in which it is physically hazardous. [ ] Substance use is continued despite knowledge of having a persistent or recurrent physical or psychological problem that is likely to have been caused or exacerbated by the substance. [ ] Tolerance, as defined by either of the following: a. A need for markedly increased amounts of the substance to achieve intoxication or desired effect. b. A markedly diminished effect with continued use of the same amount of the substance. [] Withdrawal, as manifested by either of the following: a. The characteristic withdrawal syndrome for the substance (refer to Criteria A and B of the criteria set for [substance] withdrawal). b. Substance (or a closely related substance) is taken to relieve or avoid withdrawal symptoms. Depending on how many boxes were checked above, indicate the severity level: [ ] Mild: Presence of 2-3 symptoms. [ ] Moderate: Presence of 4-5 symptoms. [ ] Severe: Presence of 6 or more symptoms. REGARDING MOTIVATION FOR TREATMENT, ESTIMATE CLIENT'S STAGE OF CHANGE WITH RESPECT TO THIS SUBSTANCE: [X] Precontemplation [] Contemplation [] Preparation [X] Action [] Maintenance CANNABIS: Age of onset: 12 year old. Method of acquiring substance (i.e. illegal, prescription, etc.): Illegally Means of use (oral, inhalation, IV): Smoked Only Pattern of use (i.e. continuous, episodic, binge/heavy episode): Continuous Duration (how long have you been using for the most recent episode): From Early 20's and then stopped at age [age] years old. Frequency: Approximately Three or four times during the week. Amount: Approximately 2 joints of cannabis per day of use Last use: Approximately What was your longest period of abstinence?: 22 years old to current date. Problematic use: Check all that apply with respect to this substance: [ ] The substance is often taken in larger amounts or over a longer period than was intended. [ ] There is a persistent desire or unsuccessful efforts to cut down or control substance use. [ ] A great deal of time is spent in activities necessary to obtain the substance, use the substance, or recover from its effects. [ ] Craving, or a strong desire or urge to use the substance. [ ] Recurrent substance use resulting in a failure to fulfill major role obligations at work, school, or home. [ ] Continued substance use despite having persistent or recurrent social or interpersonal problems caused or exacerbated by the effects of the substance? [ ] Important social, occupational, or recreational activities are given up or reduced because of substance use. [ ] Recurrent substance use in situations in which it is physically hazardous. [ ] Substance use is continued despite knowledge of having a persistent or recurrent physical or psychological problem that is likely to have been caused or exacerbated by the substance. [ ] Tolerance, as defined by either of the following: a. A need for markedly increased amounts of the substance to achieve intoxication or desired effect. b. A markedly diminished effect with continued use of the same amount of the substance. [] Withdrawal, as manifested by either of the following: a. The characteristic withdrawal syndrome for the substance (refer to Criteria A and B of the criteria set for [substance] withdrawal). b. Substance (or a closely related substance) is taken to relieve or avoid withdrawal symptoms. Depending on how many boxes were checked above, indicate the severity level: [ ] Mild: Presence of 2-3 symptoms. [ ] Moderate: Presence of 4-5 symptoms. [ ] Severe: Presence of 6 or more symptoms. REGARDING MOTIVATION FOR TREATMENT, ESTIMATE CLIENT'S STAGE OF CHANGE WITH RESPECT TO THIS SUBSTANCE: [] Precontemplation [] Contemplation [] Preparation [] Action [X] Maintenance OPIATES: Age of onset: 19-year-old. 1975 after being taken off of prescription opiate pain medications due to a Surgery on his left shoulder in the [employer]. Method of acquiring substance (i.e. illegal, prescription, etc.): Illegally Means of use (oral, inhalation, IV): Orally Consumed, IV (In the past) Pattern of use (i.e. continuous, episodic, binge/heavy episode): Continuous Duration (how long have you been using for the most recent episode): 3 to 4 months Frequency: Approximately 1 time every other day Amount: Approximately 4 to 5 pills of Oxycodone (5mg) per day of use. Last use: Approximately 4 days ago. What was your longest period of abstinence?: 5 to 6 years HEROIN: In the past FENTANYL: None reported OXYCODONE: YES, Currently SUBOXONE: In the past. METHADONE: In the past HISTORY OF OVERDOSES: Patient reported experiencing 3 Overdoses in his lifetime last occurring in approximately 1990. NARCAN (DO OEND AND/OR NALOXONE USE NOTE APPROPRIATE): Patient reported that he does not have a Narcan Kit at this time. Patient reported that he would like to have a Narcan Kit prescribed to him at this time and would like it sent to his home of residence. OFFER FENTANYL TEST STRIPS (USE SYRING SERVICE PROGRAM NOTE APPROPRIATE): Patient declined offer of Fentanyl Test Strips. Problematic use: Check all that apply with respect to this substance: [ ] The substance is often taken in larger amounts or over a longer period than was intended. [ ] There is a persistent desire or unsuccessful efforts to cut down or control substance use. [ ] A great deal of time is spent in activities necessary to obtain the substance, use the substance, or recover from its effects. [X ] Craving, or a strong desire or urge to use the substance. [ ] Recurrent substance use resulting in a failure to fulfill major role obligations at work, school, or home. [ ] Continued substance use despite having persistent or recurrent social or interpersonal problems caused or exacerbated by the effects of the substance? [ ] Important social, occupational, or recreational activities are given up or reduced because of substance use. [ ] Recurrent substance use in situations in which it is physically hazardous. [X ] Substance use is continued despite knowledge of having a persistent or recurrent physical or psychological problem that is likely to have been caused or exacerbated by the substance. [X ] Tolerance, as defined by either of the following: a. A need for markedly increased amounts of the substance to achieve intoxication or desired effect. b. A markedly diminished effect with continued use of the same amount of the substance. [] Withdrawal, as manifested by either of the following: a. The characteristic withdrawal syndrome for the substance (refer to Criteria A and B of the criteria set for [substance] withdrawal). b. Substance (or a closely related substance) is taken to relieve or avoid withdrawal symptoms. Depending on how many boxes were checked above, indicate the severity level: [ ] Mild: Presence of 2-3 symptoms. [X ] Moderate: Presence of 4-5 symptoms. [ ] Severe: Presence of 6 or more symptoms. REGARDING MOTIVATION FOR TREATMENT, ESTIMATE CLIENT'S STAGE OF CHANGE WITH RESPECT TO THIS SUBSTANCE: [] Precontemplation [] Contemplation [X] Preparation [] Action [] Maintenance COCAINE: Age of onset: 19-year-old. Method of acquiring substance (i.e. illegal, prescription, etc.): Illegally Means of use (oral, inhalation, IV): IV Pattern of use (i.e. continuous, episodic, binge/heavy episode): Continuous Duration (how long have you been using for the most recent episode): Approximately 1977 to 1990 Frequency: Approximatley every time he used heroin Amount: Approximatley 1 eight-ball of cocaine per day of use Last use: Approximately 30 years ago (Approximatbryan 1990) What was your longest period of abstinence?: From 1990 to current date. NARCAN (DO OEND AND/OR NALOXONE USE NOTE APPROPRIATE): Patient reported that he does not have a Narcan Kit at this time. Patient reported that he would like to have a Narcan Kit prescribed to him at this time and would like it sent to his home of residence. OFFER FENTANYL TEST STRIPS (USE SYRING SERVICE PROGRAM NOTE APPROPRIATE): Patient declined offer of Fentanyl Test Strips. Problematic use: Check all that apply with respect to this substance: [ ] The substance is often taken in larger amounts or over a longer period than was intended. [ ] There is a persistent desire or unsuccessful efforts to cut down or control substance use. [ ] A great deal of time is spent in activities necessary to obtain the substance, use the substance, or recover from its effects. [ ] Craving, or a strong desire or urge to use the substance. [ ] Recurrent substance use resulting in a failure to fulfill major role obligations at work, school, or home. [ ] Continued substance use despite having persistent or recurrent social or interpersonal problems caused or exacerbated by the effects of the substance? [ ] Important social, occupational, or recreational activities are given up or reduced because of substance use. [ ] Recurrent substance use in situations in which it is physically hazardous. [ ] Substance use is continued despite knowledge of having a persistent or recurrent physical or psychological problem that is likely to have been caused or exacerbated by the substance. [ ] Tolerance, as defined by either of the following: a. A need for markedly increased amounts of the substance to achieve intoxication or desired effect. b. A markedly diminished effect with continued use of the same amount of the substance. [] Withdrawal, as manifested by either of the following: a. The characteristic withdrawal syndrome for the substance (refer to Criteria A and B of the criteria set for [substance] withdrawal). b. Substance (or a closely related substance) is taken to relieve or avoid withdrawal symptoms. Depending on how many boxes were checked above, indicate the severity level: [ ] Mild: Presence of 2-3 symptoms. [ ] Moderate: Presence of 4-5 symptoms. [ ] Severe: Presence of 6 or more symptoms. REGARDING MOTIVATION FOR TREATMENT, ESTIMATE CLIENT'S STAGE OF CHANGE WITH RESPECT TO THIS SUBSTANCE: [] Precontemplation [] Contemplation [] Preparation [] Action [X] Maintenance AMPHETAMINES: Patient denied using/abusing Amphetamines in his lifetime. INHALANTS: (e.g., spray paint, sharpie, keyboard signs cleaner, correction fluid) Street names: [place], [place], [place], and [place] Patient denied using Inhalants in his lifetime. OTHER SUBSTANCES: Have you ever used Kratom, MDMA/Ecstasy, DXM/Coricidin, Steroids, diphenhydramine/Benadryl, Bath Salts, Spice, K-2, Other? Patient denied using/abusing Other Substances in his lifetime. SEDATIVES, HYPNOTICS, ANXIOLYTICS: Patient denied using/abusing Sedative/Hypnotic/Anxiolyti c/Benzodiazepines in his lifetime. TOBACCO: Age of onset: 19 years old Method of acquiring substance (i.e. illegal, prescription, etc.): Bought at store Means of use (oral, inhalation, IV): Smoked Only Pattern of use (i.e. continuous, episodic, binge/heavy episode): Continuous Duration (how long have you been using for the most recent episode): From 19 years old to approximatley 2 years Frequency: Cathyatbryan 7 days per week Amount: Approximately 1 pack of cigarettes per day of use. Last use: Approximately 2 years ago What was your longest period of abstinence?: Cathyatley 2 years since after they operated on his pancreas Problematic use: Check all that apply with respect to this substance: [ ] The substance is often taken in larger amounts or over a longer period than was intended. [ ] There is a persistent desire or unsuccessful efforts to cut down or control substance use. [ ] A great deal of time is spent in activities necessary to obtain the substance, use the substance, or recover from its effects. [ ] Craving, or a strong desire or urge to use the substance. [ ] Recurrent substance use resulting in a failure to fulfill major role obligations at work, school, or home. [ ] Continued substance use despite having persistent or recurrent social or interpersonal problems caused or exacerbated by the effects of the substance? [ ] Important social, occupational, or recreational activities are given up or reduced because of substance use. [ ] Recurrent substance use in situations in which it is physically hazardous. [ ] Substance use is continued despite knowledge of having a persistent or recurrent physical or psychological problem that is likely to have been caused or exacerbated by the substance. [ ] Tolerance, as defined by either of the following: a. A need for markedly increased amounts of the substance to achieve intoxication or desired effect. b. A markedly diminished effect with continued use of the same amount of the substance. [] Withdrawal, as manifested by either of the following: a. The characteristic withdrawal syndrome for the substance (refer to Criteria A and B of the criteria set for [substance] withdrawal). b. Substance (or a closely related substance) is taken to relieve or avoid withdrawal symptoms. Depending on how many boxes were checked above, indicate the severity level: [ ] Mild: Presence of 2-3 symptoms. [ ] Moderate: Presence of 4-5 symptoms. [ ] Severe: Presence of 6 or more symptoms. REGARDING MOTIVATION FOR TREATMENT, ESTIMATE CLIENT'S STAGE OF CHANGE WITH RESPECT TO THIS SUBSTANCE: [] Precontemplation [] Contemplation [] Preparation [] Action [X] Maintenance WHICH WITHDRAWAL SYMPTOMS HAVE YOU HAD WHEN YOU TRIED TO STOP USING SUBSTANCES? [] Shakes/tremors: [] Seizures: [] Hallucinations [] Nausea: [] Headache: [] Diarrhea: [] Muscle Aches: [] Leg cramps: [] Depression: [] Irritability: [] Mood Swings: [] DT's: [] Sleep Problems: [] Appetite Problems: [] Breathing problems: [] Itching/scratching: [] Sweating: [] Other: CONSEQUENCES OF SUBSTANCE USE: Legal Problems, Incarceration, Worsened Mental Health, Physical Health Issues, Relationship problems, Financial Issues, Housing Issues. GOALS: Patient wants to stop using Opiates completely, feel better, learn to Take a cooking class at [employer] that starts in April, TRIGGERS: Being rejected (like when his father found out he was using), Depression, Physical Health Issues, Chronic Pain, Loneliness, Boredom OTHER COPING STRATEGIES: Calling friend sand going for walks, fishing SOCIAL SUPPORT (including family/friends, self-help, community, spiritual): NA, family & friends) Some Friends, Family is supportive from afar (Call to check up on him), AA Meetings once in a while. Sister calls him to see how he is doing, 4 daughters who love him a lot and 1 he lives with, and his ex-. GAMBLING QUESTIONS Brief Biosocial Gambling Screen (BBGS) Questionnaire: 1. During the past 12 months, have you become restless irritable or anxious when trying to stop/cut down on gambling? No 2. During the past 12 months, have you tried to keep your family or friends from knowing how much you gambled? No 3. During the past 12 months did you have such financial trouble as a result of your gambling that you had to get help with living expenses from family, friends or welfare? No If yes to any of the above, administer the [place] Gambling Screen (SOGS) available in [facility] (does not need to be completed in session). SUMMARY/CASE CONCEPTUALIZATION: Patient is a 69 year old Male. 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 RECOMMENDATIONS Based on the multidimensional assessment above and consistent with the [facility] Clinical Practice Guidelines for the treatment of GEOVANY 2020, we recommend... Talk with medication prescriber about possibility of being prescribed MAT for Opioid Use Disorders; Individual Therapy for CBT-GEOVANY, GEOVANY-C IOP; Individual Therapy for GEOVANY & Co-Occurring Disorders with focus on Recognizing early signs and symptoms of depression and how to cope with them without using substances; Continue attending Relapse Prevention Groups at [facility] on at 1000 hours; and continue attending 12-Step Facilitation Meetings (AA Meetings). Patient reported that he is interested in Individual Therapy for GEOVANY & Co- Occurring Disorders with focus on Recognizing early signs and symptoms of depression and how to cope with them without using substances. Patient reported that he is attending Relapse Prevention Groups at [facility] on at 1000 hours PLAN Based on shared decision making with , considering recommendations and [place]'s preferences and values, plan is: Individual Therapy for GEOVANY & Co- Occurring Disorders with focus on Recognizing early signs and symptoms of depression and how to cope with them without using substances; Continue attending Relapse Prevention Groups at [facility] on at 1000 hours; and continue attending 12-Step Facilitation Meetings (AA Meetings). [x] Provider discussed the [facility] GE[facility]ANY Clinic's structure, services (including the availability of evidence-based psychosocial and pharmacological treatments and toxicology testing), expectations, scheduling, and confidentiality of records. [place] verbalized understanding and consent to be treated in this GEOVANY Clinic. [] For VVC, reviewed Group Telehealth Agreement and verbalized understanding and consent. [] For IOP, reviewed IOP Treatment Agreement and verbalized understanding and consent. Random Urine Drug Screens will be administered weekly in IOP. Urine Specimens will be collected at [facility]. The collection of will NOT be observed. Veterans will be notified of Urine Drug Screen results by mail and by members of the GEOVANY-C Treatment Team. Urine Drug Screen Results will be used to identify a lapse early to prevent it from causing unnecessary life problems and help determine the appropriate level of care for treatment. Test results are not used to deny access to care. Confirmation testing is available when additional information is needed or when self-report is not consistent with laboratory results. [ ] VERBALLY CONSENTS TO SUBMITTING SPECIMENS FOR WEEKLY RANDOM URINE DRUG SCREENS AND FULLY UNDERSTANDS THE ABOVE WRTTEN STATEMENT DIAGNOSES: Opioid (Oxycodone) Use Disorder, Severe; Major Depressive Disorder, Mild Review GEOVANY C treatment agreement and document verbal and/or written consent. FOR VVC: Review Group telehealth agreement and document verbal consent. Verbal consent to treatment agreement. Verbally consent to VVC agreement. /lyndon/ ZEN HARRINGTON Incident Engineer Signed: 03/22/2025 12:50 ALICIA CHOUDHURY [facility] [place] [facility] Mar 22, 2025 10:29 AM MENTAL HEALTH COUN SELING NOTE: LOCAL TITLE: OEND PATIENT EDUCATION STANDARD TITLE: MENTAL HEALTH COUNSELING NOTE DATE OF NOTE: MAR 22, 2025@10:29 ENTRY DATE: MAR 22, 2025@10:29:36 AUTHOR: ALICIA CHOUDHURY EXP COSIGNER: URGENCY: STATUS: COMPLETED OPIOID OVERDOSE EDUCATION AND NALOXONE DISTRIBUTION (OEND) Patient's indication for naloxone: Opiod use disorder, History of prescription/recreational oral/IV opioid abuse or misuse, Documented episode of opioid overdose in the past Patient reported experiencing 3 Overdoses in his lifetime last occurring in approximately 1990. Patient's history of naloxone use: Receiving naloxone kit for the first time Patient reported that he does not have a Narcan Kit at this time. Patient reported that he would like to have a Narcan Kit prescribed to him at this time and would like it sent to his home of residence. Prescriber and/or trained clinical staff reinforced opioid overdose prevention, recognition, and response education and naloxone use and disposal (e.g., by providing and reviewing [place] pamphlets below). Because patient is still at-risk for overdose, a new naloxone prescription is recommended. Informed patient that training/education of potential bystanders on opioid overdose is also recommended. Education provided to: Patient Naloxone Provider notified of request for naloxone. Additional Information: Has patient ever had prior hypersensitivity reaction or adverse drug reaction to naloxone or naltrexone? No Patient would like prescription: By Mail /lyndon/ ZEN HARRINGTON Incident Engineer Signed: 03/22/2025 12:50 Receipt Acknowledged By: 03/22/2025 12:54 /lyndon/ BRYANNA COUCH Physician ALICIA CHOUDHURY [facility] Mar 22, 2025 09:10 AM MENTAL HEALTH DIAG NOSTIC STUDY NOTE: LOCAL TITLE: MENTAL HEALTH DIAGNOSTIC STUDY STANDARD TITLE: MENTAL HEALTH DIAGNOSTIC STUDY NOTE DATE OF NOTE: MAR 22, 2025@09:10 ENTRY DATE: MAR 22, 2025@09:11:07 AUTHOR: ALICIA CHOUDHURY EXP COSIGNER: URGENCY: STATUS: COMPLETED Suicide Screen: C-SSRS Screening [place]-Suicide Severity Rating Scale (C-SSRS Screener) 1. Over the past month, have you wished you were or wished you could go to sleep and not wake up? No 2. Over the past month, have you had any actual thoughts of killing yourself? No 3. Over the past month, have you been thinking about how you might do this? Response not required due to responses to other questions. 4. Over the past month, have you had these thoughts and had some intention of acting on them? Response not required due to responses to other questions. 5. Over the past month, have you started to work out or worked out the details of how to kill yourself? Response not required due to responses to other questions. 6. If yes, at any time in the past month did you intend to carry out this plan? Response not required due to responses to other questions. 7. In your lifetime, have you ever done anything, started to do anything, or prepared to do anything to end your life (for example, collected pills, obtained a gun, gave away valuables, went to the roof but didn't jump)? No 8. If YES, was this within the past 3 months? Response not required due to responses to other questions. /lyndon/ ZEN HARRINGTON Incident Engineer Signed: 03/22/2025 12:50 ALICIA CHOUDHURY [facility]
--- OUTSIDE RECORDS SUMMARY | 2025-03-22 06:30 | XMS_ITS | Encounter Summary ---
Author Name [facility] ([place]) Organization [facility] [place] Address [address] [place] [address] Care Team Providers Care Tube Buffer Name Role Phone BRYANNA COUCH Primary Care [...] STAND JONATHAN Aug 26, 2020 MEDICAI D [id number] KELSEY TATE PATIENT MEDICARE (WNR) MEDICARE (M) PART A Mar 26, 2020 PART A [id number] JASMIN TATE JR PATIENT MEDICARE (WNR) MEDICARE (M) PART B Mar 26, 2020 PART B [id number] JASMIN TATE JR PATIENT Selected Encounter This section includes the information on record at OR for the Encounter. Date/Time Encounter Type Encounter Description Reason Provider Source Mar 22, 2025 10:30 AM OFFICE O/P EST LOW 20 MIN PM&RS PHYSICIAN ICD-10-CM M17.0 Bilateral primary osteoarthritis of knee DURGA THORNTON IHE Encounter Template Text not used by [place] Assessments - Encounter Diagnoses This section includes the primary and secondary diagnoses documented for the Encounter. Date/Time Primary/Secondary Diagnosis Diagnosis Name Provider Source Mar 22, 2025 11:10 AM PRIMARY Bilateral primary osteoarthritis of knee DURGA THORNTON [place] [facility] [place] [facility] Plan of Treatment: Future Appointments (+ 6 months) and Future Tests (+/- 45 days) The Plan of Treatment section includes future care activities for the patient [facility] [place] [facility] This section includes future appointments and future [...] AMBULATORY - NONE [facility] [place] [facility] Mar 31, 2025 02:00 PM AMBULATORY - PSYCHIATRY [place] [facility] [place] [facility] Apr 09, 2025 11:00 AM AMBULATORY - MEDICINE [place] [facility] [place] [facility] Apr 28, 2025 02:00 PM AMBULATORY - PSYCHIATRY [place] [facility] [place] [facility] May 06, 2025 09:30 AM AMBULATORY - NONE [place] May 12, 2025 02:00 PM AMBULATORY - PSYCHIATRY [place] [facility] [place] [facility] May 19, 2025 02:00 PM AMBULATORY - PSYCHIATRY [place] [facility] [place] [facility] May 24, 2025 01:00 PM AMBULATORY - MEDICINE [place] C [facility] [place] [facility] Jun 30, 2025 11:30 AM AMBULATORY - REHAB MEDICIN E [facility] [place] [facility] Jul 07, 2025 11:00 AM AMBULATORY - MEDICINE [place] Jul 27, 2025 09:00 AM AMBULATORY - MEDICINE [place] [facility] [place] [facility] Jul 27, 2025 09:01 AM AMBUL[place]ORY - [place]ICINE [place] [facility] Aug 05, 2025 01:00 PM AMBULATORY - MEDICINE [place] C [facility] [place] [facility] Active, Pending, and Scheduled Orders This section includes a listing of several types of active, pending, and scheduled orders, including clinic medications orders, diagnostic test orders, procedure orders and consult orders; where the start date of the order is 45 days before the date of the Encounter or 45 days after the date of theEncounter. The data comes from all [place] treatment facilities. Test Date/Time Test Type Test Details Facility Name Mar 30, 2025 04:04 PM Consult Order HOME SLEEP STUDY NOX/SPOPC OUTPT Cons Imagery Analyst's Choice [place] [facility] [place] [facility] Mar 30, 2025 04:04 PM Consult Order CVT HOME S LEEP STUDY IFC WHAV Cons Imagery Analyst's Choice [place] [facility] [place] [facility] Mar 31, 2025 02:15 PM Consult Order COMMUNITY CARE-OPHTHALMOLOGY Cons Imagery Analyst[facility] Choice [facility] Lab Results: +/- 30 days of the [...] Type Comment Feb 22, 2025 10:27 AM [place] FERRITIN SERUM Specimen Type: SERUM No comment entered. Ordering Provider: FRANNIE AGUERO Report Released Date/Time: Feb 19, 2025 03:06 PM Reporting Lab: [address] [address] Performing Lab: [address] [address] FERRITIN 31.8 ng/mL 21.8-274.7 Feb 22, 2025 10:27 AM [place] IRON & TIBC PANEL SERUM Specimen Type : SERUM No comment entered. Ordering Provider: FRANNIE AGUERO Report Released Date/Time: Feb 19, 2025 03:06 PM Reporting Lab: [address] [address] Performing Lab: [address] [address] TIBC 367 ug/dL 204-475 IRON 46 ug/dL L 65-175 Transferrin Saturation 12.5 L 15-45 Transferrin (TRF) 278 mg/dL 180-382 Feb 22, 2025 10:27 AM [place] CBC AND DIFF (AUTO) BLOOD Specimen Ty pe: BLOOD No comment entered. Ordering Provider: FRANNIE AGUERO Report Released Date/Time: Feb 19, 2025 03:06 PM Reporting Lab: [facility] [address] [address] Performing Lab: [facility] [address] [address] WBC 5.97 10*3/uL 4.50-11.00 RBC 4.01 10*6/uL [...] 01:53 PM Reporting Lab: [facility] [address] [address] Performing Lab: [facility] [address] [address] UREA NITROGEN 16 mg/dL 8-26 GLUCOSE 103 [...] 153/84 mm[Hg] 16 /min 96 % 4 [facility] Social History: Smoking Status (Most current) and [...] perez Jan 26, 2025 01:44 PM VA-TOBACCO USE FOR ANGELA CIGARETTES [facility] Tobacco Use History This section includes a history of the smoking, or tobacco-related health factors, that were collected on or before the date of the Encounter. The data comes from the [place] facility where the Encounter took place. Date/Time Smoking Status/Tobacco Use Comment Cole wallis Jan 26, 2025 01:44 PM VA-TOBACCO USE [...] PM KNEE 3 VIEWS (LEFT): JASMIN TATE [id number] -1955 M Exm Date: FEB 23, 2025@13:47 Req Phys: VIOLETTA THORNTON Loc: [facility] MED REHAB PA 1 (Req'g Loc) Img Loc: [facility]/BUILDING 1 Service: [place] [address] (Case 170 COMPLETE) KNEE 3 VIEWS (LEFT) (RAD Detailed) CPT:67150 Reason for Study: left knee pain Clinical History: Report Status: Verified Date Reported: FEB 23, 2025 Date Verified: FEB 23, 2025 Neck Band Setter E-Sig:/ES/VIOLETTA KEE Report: X-RAY EXAM OF KNEE [...] Primary Interpreting Staff: VIOLETTA KEE, Staff Physician (Neck Band Setter) /VIOLETTA KUMAR [facility] Feb 22, 2025 09:59 AM SHOULDER,COMPLETE(RIGHT): JASMIN TATE [id number] [facility]-1955 M Exm Date: FEB 22, 2025@09:59 Req Phys: FRANNIE AGUERO Loc: [facility] PROGRAMMER (Req'g Loc) Img Loc: [facility] 1 Service: Unknown [place], [place] (Case 66 COMPLETE) SHOULDER,COMPLETE(RIGHT) (RAD Detailed) CPT:39809 Proc Modifiers : RIGHT Reason for Study: bialteral shoulder pain Clinical History: Report Status: Verified Date Reported: FEB 22, 2025 Date Verified: FEB 22, 2025 Neck Band Setter E-Sig:/ES/DIRK HOLLAND Report: Accession number: [id number], [id number] Exam: X-RAY EXAM OF SHOULDER, X-RAY EXAM [...] Primary Interpreting Staff: DIRK HOLLAND, Staff Physician (Neck Band Setter) / DIRK HOLLAND [facility] Feb 22, 2025 09:59 AM SHOULDER,COMPLETE(LEFT): JASMIN TATE [id number] [facility]-1955 M Exm Date: FEB 22, 2025@09:59 Req Phys: FRANNIE AGUERO Loc: [facility] DATA PROGRAMMER (Req'g Loc) Img Loc: [facility] 1 Service: [place] [address] (Case 67 COMPLETE) SHOULDER,COMPLETE(LEFT) (RAD Detailed) CPT:56122 Proc Modifiers : LEFT Reason for Study: bialteral shoulder pain Clinical History: Report Status: Verified Date Reported: FEB 22, 2025 Date Verified: FEB 22, 2025 Neck Band Setter E-Sig:/ES/DIRK HOLLAND Report: Accession number: [id number], [id number] Exam: X-RAY EXAM OF SHOULDER, X-RAY EXAM [...] Primary Interpreting Staff: DIRK HOLLAND, Staff Physician (Neck Band Setter) / DIRK HOLLAND [facility] Encounter Notes: All associated encounter notes This section contains the clinical notes associated to the Encounter. Date/Time Encounter Note(s) Provider Source Mar 22, 2025 10:56 AM PHYSICAL MEDICINE REHAB PHYSICIAN NOTE: LOCAL TITLE: PM&R FOLLOW-UP STANDARD TITLE: PHYSICAL MEDICINE REHAB PHYSICIAN NOTE DATE OF NOTE: MAR 22, 2025@10:56 ENTRY DATE: MAR 22, 2025@10:57:20 AUTHOR: VIOLETTA THORNTON COSIGNER: URGENCY: STATUS: COMPLETED MAR 22, 2025 JASMIN TATE is a 69 y/o MALE who presents today for follow-up of left knee pain. presented in early February for severe pain in the left knee. We injected the left knee with cortisone to cover the gap from the previous hyaluronic acid injection in August. The intra-articular injection was dramatically helpful for him and he has been experiencing no significant pain in the left knee or right knee. He is walking routinely. He is not experiencing pain in the knees. He has lost some weight and is not experiencing as much bloating. He feels well and does not feel the need for injection today. PMHx as obtained from Chart: Active problems - Computerized Problem List is the source for the followin. Neuroendocrine tumor 2. Rash ([facility] [id number]) 3. Herpes Simplex Type I 4. Homeless single person 5. Obstructive sleep apnea syndrome 6. Vitamin D Deficiency ([facility] [id number]) 7. Multiple nodules of lung 8. Complaining of erectile dysfunction 9. Dyspnea on exertion 10. Lumbosacral spondylosis 11. History of hepatitis C 12. Glaucoma 13. Chronic low back pain 14. Cigarette smoker 15. Opioid dependence in remission 16. Housing problem Soc Hx: MARITAL STATUS - [employer] FROM Jan TO Jan ALL: Patient has answered NKA MEDS: Reviewed and Reconciled ROS: Constitutional - Denies fever or chills, night sweats, or unexplained weight loss. Head/Eyes/Ears/Neck- Denies headaches, visual changes. Cardiovascular - Denies chest pain/tightness, lower extremity swelling. Respiratory - Denies shortness of breath, or cough. GI - Denies nausea, vomiting, or loss of bowel fx/control. - Denies pelvic pain or loss of bladder function. Musculoskeletal - See HPI. Neuro - Denies numbness or tingling of the extremities. Skin/integuments - Denies rashes, lesions, or skin breakdown in the extremities. All other systems reviewed and are negative. PHYSICAL EXAMINATION: Vitals in chart. GEN: WD, WN. Awake, alert, cooperative with exam. PSYCH: Good eye contact. Appropriate affect and social interaction. HEENT: Normocephalic, atraumatic. CVS: Extremities warm/well perfused. No lower extremity edema. PULM: Breathing unlabored, no accessory muscle use. ABD: Nondistended. EXTREMITIES: No cyanosis or edema of bilateral upper and lower extremities. MUSCULOSKELETAL EXAM: Exam shows that he appears well. He is moving about the room nicely. He is able to make lateral movements without any visual grimacing. There is no instability. He has good quad tone. There is no irritability about the patella. He has no varus or valgus laxity. Even the joint line medially is not uncomfortable for palpation despite the moderate medial compartment arthritis. Flexion is tolerated to 130 degrees with terminal extension. No effusion. Diagnostic Studies:Xrays left knee 12/30/24 Medial compartment joint space narrowing and mild patellofemoral compartment joint space narrowing. Tricompartmental osteophyte formation and subarticular degenerative remodeling. Right-sided chondral meniscal calcinosis. Degenerative changes progressed since 2020 exam. ASSESSMENT/PLAN: Patient is a 69-year-old presenting today for knee pain. He has improved considerably with the previous cortisone injection. Will defer on Durolane for today. Will schedule out 1 month. If his symptoms still are well addressed with weight reduction, improved mobility. FOLLOW-UP: 1 month Potential risks and side effects of any medication(s) prescribed today was reviewed with [place]. Patient had many excellent questions, which I answered to the best of my ability and to patient's apparent satisfaction. MDM: ___20____ minutes which includes reviewing records, evaluating patient, documenting in medical record, educating, counseling and coordinating care. Medication Reconciliation: Outpatient: Has the patient been [...] available for this patient [place] [facility] [place] [facility] No Known Allergies Med Recon NoGlossary (Tool #1) INCLUDED IN THIS LIST: Alphabetical list of active outpatient prescriptions dispensed from this OR (local) and dispensed from another OR or [facility] facility (remote) as well as inpatient orders (local pending and active), local clinic medications, locally documented non-VA medications, and local prescriptions that have or been discontinued in the past 90 days. Non-VA Meds Last Documented On: Nov 05, 2024 NOTE The display of VA prescriptions dispensed from another OR or [facility] facility (remote) is limited to active outpatient prescription entries matched to National Drug File at the originating site and may not include some items such as investigational drugs, compounds, etc. NOT INCLUDED IN THIS LIST: Medications self-entered by the patient into personal health records (i.e. [email or web address]) are NOT included in this list. Non-VA [...] EYE TWICE DAILY FOR WIDE-ANGLE GLAUCOMA Rx# [id number] Last Released: 12/28/24 Qty/Days Supply: Rx Expiration Date: 02/03/25 Refills Remainin Indication: FOR WIDE-ANGLE GLAUCOMA OUTPT CAPSAICIN 0.1% CREAM (Status = Active) APPLY A SMALL AMOUNT TOPICALLY TWICE DAILY NEEDED FOR LOCALIZED PAIN APPLIED TO LEFT KNEE TWICE DAILY Rx# [id number] Last Released: 10/06/24 Qty/Days Supply: 120/60 Rx [...] MOUTH ONCE DAILY FOR ENLARGED PROSTATE Rx# [id number] Last Released: 01/23/25 Qty/Days Supply: Rx Expiration Date: 01/22/26 Refills Remainin Indication: FOR ENLARGED PROSTATE OUTPT HYALURONATE NA (DUROLANE)20MG/ML SYR 3ML (Status = Discontinued) INJECT 60MG INTRA-ARTICULAR ONE TIME RIGHT KNEE Rx# [id number] Last Released: 09/16/24 Qty/Days Supply: Rx Expiration Date: 02/24/25 Refills Remainin Indication: OSTEOARTHRITIS OF THE KNEE OUTPT HYALURONATE NA (DUROLANE)20MG/ML SYR 3ML (Status = Active) INJECT 60MG INTRA-ARTICULAR ONE TIME RIGHT KNEE Rx# [id number] Last Released: 03/10/25 Qty/Days Supply: Rx Expiration Date: 02/20/26 Refills Remainin Indication: OSTEOARTHRITIS OF THE KNEE OUTPT HYDROPHILIC (EQV AQUAPHOR) TOP OINT (Status = Active) APPLY LIBERAL AMOUNT TOPICALLY TWICE DAILY NEEDED FOR DRY SKIN Rx# [id number] Last Released: 10/10/24 Qty/Days Supply: Rx Expiration Date: 10/10/25 Refills Remainin Indication: FOR DRY SKIN OUTPT HYDROXYZINE HCL 25MG TAB (Status = Discontinued) TAKE ONE TABLET BY MOUTH AT BEDTIME NEEDED FOR INSOMNIA - NOTE DOSE Rx# [id number] Last Released: 12/25/24 Qty/Days Supply: Rx Expiration Date: 10/15/25 Refills Remainin Indication: INSOMNIA OUTPT HYDROXYZINE HCL 25MG TAB (Status = Active) TAKE ONE TABLET BY MOUTH AT BEDTIME NEEDED FOR INSOMNIA - NOTE DOSE Rx# [id number] Last Released: 01/23/25 Qty/Days Supply: Rx Expiration Date: 01/22/26 Refills Remainin Indication: INSOMNIA OUTPT LISINOPRIL 10MG TAB (Status = Discontinued) TAKE ONE TABLET BY MOUTH ONCE DAILY TO CONTROL BLOOD PRESSURE Rx# [id number] Last Released: 11/23/24 Qty/Days Supply: Rx Expiration Date: 11/20/25 Refills Remainin Indication: FOR HIGH BLOOD PRESSURE OUTPT LISINOPRIL 10MG TAB (Status = Discontinued) TAKE ONE TABLET BY MOUTH ONCE DAILY TO CONTROL BLOOD PRESSURE Rx# [id number] Last Released: 01/23/25 Qty/Days Supply: Rx Expiration Date: 01/22/26 Refills Remainin Indication: FOR HIGH BLOOD PRESSURE OUTPT LISINOPRIL 20MG TAB (Status = Active) TAKE ONE TABLET BY MOUTH ONCE DAILY TO CONTROL BLOOD PRESSURE Rx# [id number] Last Released: 03/05/25 Qty/Days Supply: Rx Expiration Date: 01/27/26 Refills Remainin Indication: FOR HIGH BLOOD PRESSURE OUTPT METOPROLOL SUCCINATE 50MG SA TAB (Status = Active/Suspended) TAKE ONE TABLET BY MOUTH ONCE DAILY FOR BLOOD PRESSURE/HEART Rx# [id number] Last Released: 01/23/25 Qty/Days Supply: Rx Expiration Date: 01/22/26 Refills Remainin Indication: FOR HIGH BLOOD PRESSURE OUTPT TADALAFIL 20MG TAB (Status = Discontinued) TAKE ONE TABLET BY MOUTH ONCE DAILY Rx# [id number] Last Released: 12/01/24 Qty/Days Supply: Rx Expiration Date: 11/25/25 Refills Remainin OUTPT TADALAFIL 20MG TAB (Status = Active) TAKE ONE TABLET BY MOUTH ONCE DAILY FOR ERECTILE DYSFUNCTION Rx# [id number] Last Released: 02/17/25 Qty/Days Supply: Rx Expiration Date: 01/22/26 Refills Remainin Indication: FOR ERECTILE DYSFUNCTION OUTPT TERBINAFINE HCL 1% CREAM (Status = Active) APPLY A THIN LAYER TOPICALLY TWICE DAILY FUNGAL INFECTION Rx# [id number] Last Released: 03/17/25 Qty/Days Supply: [id number] Rx Expiration Date: 03/18/26 Refills Remainin Indication: FUNGAL INFECTION SUPPLIES /lyndon/ VIOLETTA THORNTON [facility] Signed: 03/22/2025 11:10 VIOLETTA THORNTON [facility]
--- OUTSIDE RECORDS SUMMARY | 2025-03-30 10:00 | XMS_ITS ---
Author Name [facility] [place] [facility] [place] Address [address] [place] [address] Care Team Providers Care Engine Test Cell Technician Name Role Phone BRYANNA COUCH Primary Care [...] Patient's Relationship to Policy [place] MEDICAID MEDICAID [facility] STAND JONATHAN Aug 26, 2020 MEDICAI D [id number] KELSEY TATE PATIENT MEDICARE (WNR) MEDICARE (M) PART B Mar 26, 2020 PART B [id number] JASMIN TATE JR PATIENT MEDICARE (WNR) MEDICARE (M) PART A Mar 26, 2020 PART A [id number] JASMIN TATE JR PATIENT Selected Encounter This section includes the information on record at [place] for the Encounter. Date/Time Encounter Type Encounter Description Reason Provider Source Mar 30, 2025 02:00 PM EDU&TRN PT SELF-MGMT NQHP 1 SLEEP MEDICINE ICD-10-CM G47.33 Obstructive sleep apnea (adult) (pediatric) BREYMANN,WILLI AM IHE Encounter Template Text not used by [place] Assessments - Encounter Diagnoses This section includes the primary and secondary diagnoses documented for the Encounter. Date/Time Primary/Secondary Diagnosis Diagnosis Name Provider Source Apr 09, 2025 12:46 PM PRIMARY Obstructive sleep apnea (adult) (pediatric) [facility]PHANIA SMITH [facility] [place] [facility] Plan of Treatment: Future Appointments (+ 6 months) and Future Tests (+/- 45 days) The Plan of Treatment section includes future care activities for the patient from all [place] [facility] This section includes future appointments and future orders which are active, pending or scheduled. Future Appointments This section includes appointments that were scheduled to occur 6 months from the date of the Encounter, up to a maximum of 20 appointments. The data comes from all [place] treatment facilities. Appointment Date/Time Appointment Type Appointme nt Facility Name Mar 31, 2025 02:00 PM AMBULATORY - PSYCHIATRY [place] [facility] [place] [facility] Apr 09, 2025 11:00 AM AMBULATORY - MEDICINE [place] C [facility] [place] [facility] Apr 28, 2025 02:00 PM AMBULATORY - PSYCHIATRY [place] [facility] [place] [facility] May 06, 2025 09:30 AM AMBULATORY - NONE [place] May 12, 2025 02:00 PM AMBULATORY - PSYCHIATRY [place] [facility] [place] [facility] May 19, 2025 02:00 PM AMBULATORY - PSYCHIATRY [place] [facility] [place] [facility] May 24, 2025 01:00 PM AMBULATORY - MEDICINE [place] C [facility] [place] [facility] Jun 30, 2025 11:30 AM AMBULATORY - REHAB MEDICIN E [place] [facility] [place] [facility] Jul 07, 2025 11:00 AM AMBULATORY - MEDICINE [place] Jul 27, 2025 09:00 AM AMBULATORY - MEDICINE [place] [facility] [place] [facility] Jul 27, 2025 09:01 AM AMBULATORY - MEDICINE [place] [facility] Aug 05, 2025 01:00 PM AMBULATORY - MEDICINE [facility] [place] [facility] Active, Pending, and Scheduled Orders This section includes a listing of several types of active, pending, and scheduled orders, including clinic medications orders, diagnostic test orders, procedure orders and consult orders; where the start date of the order is 45 days before the date of the Encounter or 45 days after the date of theEncounter. The data comes from all [place] treatment facilities. Test Date/Time Test Type Test Details Facility Name Mar 30, 2025 04:04 PM Consult Order HOME SLEEP STUDY NOX/SPOPC OUTPT Cons [facility] Mar 30, 2025 04:04 PM Consult Order CVT HOME S LEEP STUDY IFC WHAV Cons Seamer Panty Hose[facility] Mar 31, 2025 02:15 PM Consult Order COMMUNITY CARE-OPHTHALMOLOGY Cons Seamer [facility]ose[facility] Social History: Smoking Status (Most current) and Tobacco Use (All prior to encounter date) This section includes the most current, and the historical, smoking and tobacco- related health factors from the VA facility where the Encounter took place. Current Smoking Status This section includes the most current smoking, or tobacco-related health factor, from the VA facility where the Encounter took place. Date/Time Current Smoking Status Comment Teresa perez Jan 26, 2025 01:44 PM VA-TOBACCO USE FOR ANGELA CIGARETTES [facility] Tobacco Use History This section includes a history of the smoking, or tobacco-related health factors, that were collected on or before the date of the Encounter. The data comes from the [place] facility where the Encounter took place. Date/Time Smoking Status/Tobacco Use Comment F bimal Jan 26, 2025 01:44 PM VA-TOBACCO USE FOR ANGELA CIGARETTES [facility] Advance Directives: All historical and current Section Date Range: From patient's date of to the date document was created. This section includes ALL of a patient's completed or amended [place] Advance and Rescinded Directives. The entries below indicate that a directive exists for the patient, but an actual copy is not included with this document. The data comes from all [place] facilities. Date Advance Directives Provider Source January 10, 2021 ADVANCE DIRECTIVE DENNISE BRO Encounter Notes: All associated encounter notes This section contains the clinical notes associated to the Encounter. Date/Time Encounter Note(s) Provider Source Mar 30, 2025 02:27 PM RESPIRATORY THERAP Y NOTE: LOCAL TITLE: RESPIRATORY THERAPY NOTE(BLANK) STANDARD TITLE: RESPIRATORY THERAPY NOTE DATE OF NOTE: MAR 30, 2025@14:27 ENTRY DATE: MAR 30, 2025@14:27:23 AUTHOR: SANDRO SMITH COSIGNER: URGENCY: STATUS: COMPLETED RESPIRATORY THERAPY NOTE(BLANK) Has ADDENDA diagnosed with sleep apnea in having issues with CPAP compliance. States mask is uncomfortable and even after he falls asleep he usually wakes up to a leaking mask. New mask given (F30-i wide) but states he has lost weight and is interested in a repeat sleep study to see if he might qualify for Inspire or other alternatives to CPAP. Alerting PCP to place sleep study if appropriate. /lyndon/ SANDRO SMITH RRT Registered Respiratory Therapist Signed: 03/30/2025 14:35 Receipt Acknowledged By: 03/30/2025 14:51 /lyndon/ CONCETTA JOSÉ,RN-BC REGISTERED NURSE (RN) 03/31/2025 10:50 /lyndon/ Ruth Obrien MD INTERNAL MEDICINE and RHEUMATOLOGY for BRYANNA COUCH 03/30/2025 ADDENDUM STATUS: COMPLETED Consult has been placed and held for provider to review and sign if appropriate. /lyndon/ CONCETTA JOSÉ,RN-BC REGISTERED NURSE (RN) Signed: 03/30/2025 14:51 SANDRO SMITH [facility]
--- OUTSIDE RECORDS SUMMARY | 2025-03-31 10:00 | XMS_ITS | Encounter Summary ---
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 Date/Time Encounter Type Encounter Description Reason Provider Source Mar 31, 2025 02:00 PM PSYTX W PT 30 MINUTES SUBSTANCE USE DISORDER IND ICD-10-CM F11.20 Opioid dependence, uncomplicated LAKALO,TATIAN A IHE Encounter Template Text not used by VA Assessments - Encounter Diagnoses This section includes the primary and secondary diagnoses documented for the Encounter. Date/Time Primary/Secondary Diagnosis Diagnosis Name Provider Source Mar 31, 2025 02:30 PM PRIMARY Opioid dependence, uncomplicated [facility] [place] [facility] Mar 31, 2025 02:30 PM SECONDARY Major depressive disorder, recurrent, mild [facility] Plan of Treatment: Future Appointments (+ 6 months) and Future Tests (+/- 45 days) The Plan of Treatment section includes future care activities for the [facility] [place] [facility] This section includes future appointments and future orders which are active, pending or scheduled. Future Appointments This section includes appointments that were scheduled to occur 6 months from the date of the Encounter, up to a maximum of 20 appointments. The data comes from all [place] treatment facilities. Appointment Date/Time Appointment Type Appointme nt Facility Name Apr 09, 2025 11:00 AM AMBULATORY - MEDICINE [facility] [place] [facility] Apr 28, 2025 02:00 PM AMBULATORY [place]IATRY [place] [facility] [place] [facility] May 06, 2025 09:30 AM AMBULATORY - NONE [place] May 12, 2025 02:00 PM AMBULATORY - [place]IATRY [place] [facility] [place] [facility] May 19, 2025 02:00 PM AMBULATORY - [place]IATRY [place] [facility] [place] [facility] May 24, 2025 01:00 PM AMBULATORY - MEDICINE [facility] [place] [facility] Jun 30, 2025 11:30 AM AMBULATORY - REHAB [place]ICIN [place] [facility] [place] [facility] Jul 07, 2025 11:00 AM AMBULATORY - MEDICINE [place] Jul 27, 2025 09:00 AM AMBULATORY - MEDICINE [facility] [place] [facility] Jul 27, 2025 09:01 AM [facility]UL[facility]ORY - [place]IC[place] [facility] Aug 05, 2025 01:00 PM [facility] Active, Pending, and Scheduled Orders This section includes a listing of several types of active, pending, and scheduled orders, including clinic medications orders, diagnostic test orders, procedure orders and consult orders; where the start date of the order is 45 days before the date of the Encounter or 45 days after the date of theEncounter. The data comes from all [place] treatment facilities. Test Date/Time Test Type Test Details Facility Name Mar 30, 2025 04:04 PM Consult Order HOME SLEEP STUDY NOX/SPOPC OUTPT [facility] Mar 30, 2025 04:04 PM Consult Order CVT HOME S LEEP STUDY IFC WHAV [facility] Mar 31, 2025 02:15 PM Consult Order COMMUNITY CARE-OPHTHALMOLOGY Cons Chemical [facility] Social History: Smoking Status (Most current) and [...] 01:44 PM VA-TOBACCO USE FOR ANGELA CIGARETTES [facility] Tobacco Use History This section includes a history of the smoking, or tobacco-related health factors, that were collected on or before the date of the Encounter. The data comes from the [facility] facility where the Encounter took place. Date/Time Smoking Status/Tobacco Use Comment F bimal Jan 26, 2025 01:44 PM VA-TOBACCO USE FOR ANGELA CIGARETTES [facility] Advance Directives: All historical and current Section Date Range: From patient's date of to the date document was created. This section includes ALL of a patient's completed or amended [place] Advance and Rescinded Directives. The entries below indicate that a directive exists for the patient, but an actual copy is not included with this document. The data comes from all [place] facilities. Date Advance Directives Provider Source January 10, 2021 ADVANCE DIRECTIVE DENNISE BRO Encounter Notes: All associated encounter notes This section contains the clinical notes associated to the Encounter. Date/Time Encounter Note(s) Provider Source Mar 31, 2025 02:00 PM SOCIAL WORK NOTE: LOCAL TITLE: SOCIAL WORK NOTE STANDARD TITLE: SOCIAL WORK NOTE DATE OF NOTE: MAR 31, 2025@14:00 ENTRY DATE: MAR 31, 2025@14:23:10 AUTHOR: MARIE HALE EXP COSIGNER: URGENCY: STATUS: COMPLETED INFORMED CONSENT REVIEWED: At beginning of session reviewed rights and limits of confidentiality, mandatory reporting situations, duty to warn and protect, Xiao Warning, (if treatment team finds patient to be an acute danger to himself or others, that this information could be relayed to a court of law and presented to a director industrial nursing), and [facility] access for active duty service members. Provided Suicide Prevention Hotline number, and other contact numbers as necessary. VISIT DURATION Other: [address] [place] identified with 2 identifiers: Name, DIAGNOSES: Opioid (Oxycodone) Use Disorder, Severe; Major Depressive Disorder, Mild [employer] STATEMENT OF GOALS/CONCERNS: It's hard to come all the way up here. [facility] SESSION FOCUS: Frist visit with . Stated preference for [facility] due to [facility]. Asked for support for VACC consult to address glaucoma. 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 VACC consult was placed. shared burden to travel to come to [facility] so consult for [place] [facility] was placed per his request for 1:1. [place] ended appt early. INTERVENTIONS: Psychotherapeutic Interventions: Unconditional positive regard; problem-solving ASSESSMENT: BRIEF ASSESSMENT OF MENTAL STATUS: 1. Appearance (grooming, attire, apparent age) within normal limits: Yes 2. Thought content was organized and goal directed: Yes 3. Speech was coherent and unimpaired: Yes 4. Affect was appropriate and unremarkable: Yes 5. Demeanor was calm, with no signs of agitation or restlessness: Yes 6. Sleep was largely unimpaired and restful: Yes 7. No evidence of psychosis (hallucinations or delusions): Yes 8. Mood was normal: Yes Other Observations: No observed evidence of current use, cravings RISK ASSESSMENT: Denies current suicidal/homicidal ideation PLAN FOR FOLLOW-UP: Place consult for [facility]. informed of anticipated wait time and stated he was ok with this. /lyndon/ ZEN SANTANA CLINICAL THEATRICAL RIGGER Signed: 03/31/2025 14:30 [facility]
--- OUTSIDE RECORDS SUMMARY | 2025-04-07 11:30 | XMS_ITS | Encounter Summary ---
Author Name [facility] Address [address] [place] [address] Care Team Providers Care Silk Spotter Name Role Phone BRYANNA COUCH Primary Care [...] STAND JONATHAN Aug 26, 2020 MEDICAI D [id number] KELSEY TATE PATIENT MEDICARE (WNR) MEDICARE (M) PART A Mar 26, 2020 PART A [id number] JASMIN TATE JR PATIENT MEDICARE (WNR) MEDICARE (M) PART B Mar 26, 2020 PART B [id number] JASMIN TATE JR PATIENT Selected Encounter This section includes the information on record at [facility] for the Encounter. Date/Time Encounter Type Encounter Description Reason Pro vider Source Apr 07, 2025 03:30 PM Outpatient Encounter SUBSTANCE USE DISORDER IND IHE Encounter Template Text not used by [facility] Plan of Treatment: Future Appointments (+ 6 months) and Future Tests (+/- 45 days) The Plan of Treatment section includes future care activities for the patient from all [place] [facility]. This section includes future appointments and future orders which are active, pending or scheduled. Future Appointments This section includes appointments that were scheduled to occur 6 months from the date of the Encounter, up to a maximum of 20 appointments. The data comes from all [place] treatment facilities. Appointment Date/Time Appointment Type Appointme nt Facility Name Apr 09, 2025 11:00 AM AMBULATORY [facility]INE [facility] [place] [facility] Apr 28, 2025 02:00 PM AMBULATORY - PSYCHIATRY [facility] [place] [facility] May 06, 2025 09:30 AM AMBULATORY - NONE [place] May 12, 2025 02:00 PM AMBULATORY - PS[facility]CHIATRY [facility] [place] [facility] May 19, 2025 02:00 PM AMBULATORY - PS[facility]CHIATRY [facility] [place] [facility] May 24, 2025 01:00 PM AMBULATORY - MEDICINE [facility] [place] [facility] Jun 30, 2025 11:30 AM AMBULATORY - REHAB MEDICIN [facility] [place] [facility] Jul 07, 2025 11:00 AM [facility] Jul 27, 2025 09:00 AM [facility] MEDICINE [facility] [place] [facility] Jul 27, 2025 09:01 AM [facility] [place]IC[place] [facility] Aug 05, 2025 01:00 PM AMBULATORY - MEDICINE [facility] [place] [facility] Active, Pending, and Scheduled Orders This section includes a listing of several types of active, pending, and scheduled orders, including clinic medications orders, diagnostic test orders, procedure orders and consult orders; where the start date of the order is 45 days before the date of the Encounter or 45 days after the date of theEncounter. The data comes from all [place] treatment [facility]. Test Date/Time Test Type Test Details Facility Name Mar 30, 2025 04:04 PM Consult Order HOME SLEEP STUDY NOX/SPOPC OUTPT Cons Cytogeneticist's Choice [facility] [place] [facility] Mar 30, 2025 04:04 PM Consult Order CVT HOME S LEEP STUDY IFC WHAV Cons [facility] [place] [facility] Mar 31, 2025 02:15 PM Consult Order COMMUNITY CARE-OPHTHALMOLOGY Cons Cytogeneticist's [facility] Social History: Smoking Status (Most current) and Tobacco Use (All prior to encounter date) This section includes the most current, and the historical, smoking and tobacco- related health factors from the [place] facility where the Encounter took place. Current Smoking Status This section includes the most current smoking, or tobacco-related health factor, from the [place] facility where the Encounter took place. Date/Time Current Smoking Status Comment Facil ity Jan 26, 2025 01:44 PM VA-TOBACCO NEVER U SED OTHER TYPE [facility] Tobacco Use History This section includes a history of the smoking, or tobacco-related health factors, that were collected on or before the date of the Encounter. The data comes from the [place] facility where the Encounter took place. Date/Time Smoking Status/Tobacco Use Comment F achannah Jan 26, 2025 01:44 PM VA-TOBACCO USE FOR ANGELA CIGARETTES [facility] Advance Directives: All historical and current Section Date Range: From patient's date of to the date document was created. This section includes ALL of a patient's completed or amended [place] Advance and Rescinded Directives. The entries below indicate that a directive exists for the patient, but an actual copy is not included with this document. The data comes from all [place] facilities. Date Advance Directives Provider Source January 10, 2021 ADVANCE DIRECTIVE DENNISE BRO CHAMA Encounter Notes: All associated encounter notes This section contains the clinical notes associated to the Encounter. Date/Time Encounter Note(s) Provider Source Apr 05, 2025 09:15 AM ADMINISTRATIVE NOTE: LOCAL TITLE: ADMINISTRATIVE NOTE STANDARD TITLE: ADMINISTRATIVE NOTE DATE OF NOTE: APR 05, 2025@09:15 ENTRY DATE: APR 05, 2025@09:15:44 AUTHOR: MARTÍNEZ SIMS EXP COSIGNER: URGENCY: STATUS: COMPLETED AMSA reached out to to let him know that Provider will be on emergency leave on 04/07/2025. [place] reported that he's in the hospital at this point and he needed to cancel the appointment anyway. went to the hospital with a bowel obstruction that has been corrected at this point, but he's still dealing with gallbladder issues that are painful. [place] reports that he should be out of the hospital by 04/28/2025 /lyndon/ MARTÍNEZ SIMS ADVANCED LAB ANALYST Signed: 04/05/2025 09:22 Receipt Acknowledged By: 04/06/2025 10:05 /lyndon/ MARIE HALE, [facility] CLINICAL GASKET SUPERVISOR MARTÍNEZ SIMS [facility]
--- OUTSIDE RECORDS SUMMARY | 2025-04-19 11:59 | XMS_ITS ---
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 Date/Time Encounter Type Encounter Description Reason Pro vider Source Apr 19, 2025 03:59 PM Outpatient Encounter ADMIN PAT ACTIVTIES (MASNONCT) IHE Encounter Template Text not used by MD Plan of Treatment: Future Appointments (+ 6 months) and Future Tests (+/- 45 days) The Plan of Treatment section includes future care activities for the patient from [facility] This section includes future appointments and future orders which are active, pending or scheduled. Future Appointments This section includes appointments that were scheduled to occur 6 months from the date of the Encounter, up to a maximum of 20 appointments. The data comes from all MD treatment [facility]. Appointment Date/Time Appointment Type Appointme nt Facility Name Apr 28, 2025 02:00 PM AMBULATORY - PSYCHIATRY [place] [facility] [place] [facility] May 06, 2025 09:30 AM AMBULATORY - NONE [place] May 12, 2025 02:00 PM AMBULATORY - PSYCHIATRY [place] [facility] [place] [facility] May 19, 2025 02:00 PM AMBULATORY - PSYCHIATRY MD [facility] [place] [facility] May 24, 2025 01:00 PM AMBULATORY - MEDICINE [facility] [place] [facility] Jun 30, 2025 11:30 AM AMBULATORY - REHAB MEDICIN E [facility] [place] [facility] Jul 07, 2025 11:00 AM [facility] Jul 27, 2025 09:00 AM AMBULATORY - MEDICINE [place] C [facility] [place] [facility] Jul 27, 2025 09:01 AM AMBULATORY - [place]ICINE [place] [facility] Aug 05, 2025 01:00 PM AMBULATORY - MEDICINE [facility] [place] [facility] Active, Pending, and Scheduled Orders This section includes a listing of several types of active, pending, and scheduled orders, including clinic medications orders, diagnostic test orders, procedure orders and consult orders; where the start date of the order is 45 days before the date of the Encounter or 45 days after the date of theEncounter. The data comes from all MD treatment [facility]. Test Date/Time Test Type Test Details Facility Name Mar 30, 2025 04:04 PM Consult Order HOME SLEEP STUDY NOX/SPOPC OUTPT Cons Manager [employer] MD [facility] [place] [facility] Mar 30, 2025 04:04 PM Consult Order CVT HOME S LEEP STUDY IFC WHAV Cons Manager [employer] [place] [facility] [place] [facility] Mar 31, 2025 02:15 PM Consult Order COMMUNITY CARE-OPHTHALMOLOGY Cons Manager [employer] [facility] Social History: Smoking Status (Most current) and Tobacco Use (All prior to encounter date) This section includes the most current, and the historical, smoking and tobacco- related health factors from the MD facility where the Encounter took place. Current Smoking Status This section includes the most current smoking, or tobacco-related health factor, from the MD facility where the Encounter took place. Date/Time Current Smoking Status Comment Facil ity Jan 26, 2025 01:44 PM VA-TOBACCO NEVER U SED OTHER TYPE [facility] Tobacco Use History This section includes a history of the smoking, or tobacco-related health factors, that were collected on or before the date of the Encounter. The data comes from the MD facility where the Encounter took place. Date/Time Smoking Status/Tobacco Use Comment F acility Jan 26, 2025 01:44 PM VA-TOBACCO USE FOR ANGELA CIGARETTES [facility] Advance Directives: All historical and current Section Date Range: From patient's date of to the date document was created. This section includes ALL of a patient's completed or amended MD Advance and Rescinded Directives. The entries below indicate that a directive exists for the patient, but an actual copy is not included with this document. The data comes from all MD facilities. Date Advance Directives Provider Source January 10, 2021 ADVANCE DIRECTIVE DENNISE BRO Encounter Notes: All associated encounter notes This section contains the clinical notes associated to the Encounter. Date/Time Encounter Note(s) Provider Source Apr 19, 2025 03:59 PM ADMINISTRATIVE NOTE: LOCAL TITLE: CCC: SCHEDULING ADMINISTRATION STANDARD TITLE: ADMINISTRATIVE NOTE DATE OF NOTE: APR 19, 2025@15:59:06 ENTRY DATE: APR 19, 2025@15:59:06 AUTHOR: XENIA POSEY COSIGNER: URGENCY: STATUS: COMPLETED CCC: SCHEDULING ADMINISTRATION Has ADDENDA Caller Verification Call Back Number: [phone] Caller/Recipient Relation to Patient: Other If Other Describe Relation to Patient: anabell Caller Name: levi Administrative Administrative Note Reason: Home Health / Care Home Administrative Note Comments: Levi from [facility] calling to request pact call back, Levi needs verbal authorization for mcfp and OT, and also needs a medication reconciliation, Levi's call back number [phone] IMPORTANT: This note was created by [facility] Clinical Contact Center staff. Please do not alert the staff member by adding them as a signer for future communications. Alerts are not monitored by this user. /lyndon/ XENIA EDMONDSON 1 CCC AMSA Signed: 04/19/2025 15:59 Receipt Acknowledged By: 04/20/2025 12:17 /es/ DAYAN WORLEY LPN LPN 04/20/2025 08:50 /lyndon/ CONCETTA JOSÉ,RN-BC REGISTERED NURSE (RN) 04/20/2025 ADDENDUM STATUS: COMPLETED Left Radha a secure vm message stating sign writer hand was returning her call and requested her to call the clinic back at her convenience. /lyndon/ CONCETTA JOSÉ,RN-BC REGISTERED NURSE (RN) Signed: 04/20/2025 08:51 XENIA POSEY MD [facility]
--- OUTSIDE RECORDS SUMMARY | 2025-04-20 09:16 | XMS_ITS | Continuity of Care Document ---
Author Name [facility] Organization [facility] Care Team Providers Care C Developer Name Role Phone [facility] Unavailable Unavailable Problems Combined list of problems [...] FADUMO STUART Comment: stopped smoking Sep 2020 [facility] Complaining of erectile dysfunction Active Condition [facility] Depressive disorder Active Condition Mar 22, 2025 Entered By: ALICIA CHOUDHURY Comment: Major Depressive Disorder, Mild [facility] Dyspnea on exertion Active Condition January 15, 2019 Entered By: FADUMO STUART Comment: PFT: 12/2018 mild ventilatory defect; no rxn to bronchodilatorJul 2018 Entered By: FADUMO STUART Comment: partially ascribed to restrictive effects of obesity [facility] Glaucoma Active Condition [facility] Herpes Simplex Type I Active Condition [place] History of hepatitis C Active Condition Nov 29, 2017 Entered By: ANDRÉS KUMAR Comment: finished Harvoni tx 08/2017. SVRApr 2018 Entered By: FADUMO STUART Comment: [facility] [place] Provider: Rola Ramirez 2020 Entered [...] [facility] Neuroendocrine tumor Active Condition [place] Obstructive sleep apnea of adult Active Condition [facility] Obstructive sleep apnea syndrome Active Condition [...] remission [facility] Rash ([facility] [id number]) Active Condition [facility] Vitamin D Deficiency ([facility] [id number]) Active Condition Oct 18, 2020 Entered By: FADUMO STUART Comment: 09/2020 22 [facility] Diagnosis: ICD-10-CM F11.20 Opioid dependence, uncomplicated Active Diagnosis [facility] Diagnosis: ICD-10-CM G47.33 Obstructive sleep apnea (adult) (pediatric) Active Diagnosis [facility] Diagnosis: ICD-10-CM M17.0 Bilateral primary osteoarthritis of knee Active Diagnosis [facility] Diagnosis: ICD-10-CM B35.4 Tinea corporis Active Diagnosis [facility] Diagnosis: ICD-10-CM R21 Rash and other nonspecific skin eruption Active Diagnosis [place] Diagnosis: ICD-10-CM F10.21 Alcohol dependence, in remission Active Diagnosis [place] Diagnosis: ICD-10-CM Z71.89 Other specified counseling Active Diagnosis [place] Diagnosis: ICD-10-CM 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 dystrophy Active Diagnosis [facility] Diagnosis: ICD-10-CM M17.12 Unilateral primary osteoarthritis, left knee Active Diagnosis [facility] Diagnosis: ICD-10-CM K92.2 Gastrointestinal hemorrhage, unspecified Active Diagnosis [place] Diagnosis: ICD-10-CM N40.0 Benign prostatic hyperplasia without lower urinry tract symp Active Diagnosis [facility] Diagnosis: ICD-10-CM I1A.0 Resistant hypertension Active Diagnosis [facility] Diagnosis: ICD-10-CM F51.01 Primary insomnia Active Diagnosis [facility] Diagnosis: ICD-10-CM Z12.2 Encntr screen for malignant neoplasm of respiratory organs Active Diagnosis [facility] Diagnosis: ICD-10-CM M47.896 Other spondylosis, lumbar region Active Diagnosis [facility] Diagnosis: ICD-10-CM R09.81 Nasal congestion [facility] Diagnosis: ICD-10-CM M54.50 Low back pain, unspecified Active Diagnosis [place] Diagnosis: ICD-10-CM Z46.0 Encounter for fit/adjst of spectacles and contact lenses Active Diagnosis [facility] Diagnosis: ICD-10-CM H40.1133 Primary open-angle glaucoma, bilateral, severe stage Active Diagnosis [facility] Diagnosis: ICD-10-CM F32.A Depression, unspecified Active Diagnosis [place] Diagnosis: ICD-10-CM Z08 Encntr for follow-up exam after trtmt for malignant neoplasm Active Diagnosis [facility] Diagnosis: ICD-10-CM M47.897 Other spondylosis, lumbosacral region Active Diagnosis [facility] Diagnosis: ICD-10-CM M46.1 Sacroiliitis, not elsewhere classified Active Diagnosis [facility] Diagnosis: ICD-10-CM G40.89 Other seizures Active Diagnosis [place] Diagnosis: ICD-10-CM Z13.6 Encounter for screening for cardiovascular disorders Active Diagnosis [facility] Diagnosis: ICD-10-CM Z09 Encntr for f/u exam aft trtmt for cond oth than malig neoplm Active Diagnosis [place] Diagnosis: ICD-10-CM M47.816 Spondylosis w/o myelopathy or radiculopathy, lumbar region [facility] Diagnosis: ICD-10-CM F43.21 Adjustment disorder with depressed mood Active Diagnosis [place] Medications Combined list of outpatient medications [...] FOR WIDE-ANG LE GLAUCOMA OPHTHA LMIC 02/03/2025 [id number] MERHAR,NO AH B 2023 24 [facility] CAPSAICIN 0.1% CREAM,TOP APPLY A SMALL AMOUNT TOPICALL Y TWICE DAILY NEEDED FOR LOCALIZE D PAIN APPLIED TO LEFT KNEE TWICE DAILY TOPICA Corky ACTIVE 09/24/2025 [id number] 5 VIOLETTA THORNTON 2024 120 [facility] CYANOCOBALA MIN TAB TAKE BY MOUTH ORAL ACTIVE DUONG CLARK 2020 [place] DOCUSATE NA 50MG/SENNOS IDES 8.6MG TAB TAKE 2 TABLETS BY MOUTH AT BEDTIME FOR CONSTIPA TION ORAL 05/12/2024 [id number] FADUMO STUART 2023 100 [place] FERROUS GLUCONATE 324MG TAB TAKE ONE TABLET BY MOUTH QOD ORAL ACTIVE RA BIANCA AGUERO 2024 [place] FINASTERIDE 5MG TAB TAKE ONE TABLET BY MOUTH ONCE DAILY FOR ENLARGED PROSTATE ORAL ACTIVE 01/22/2026 [id number] 5 DECEMBERALEXA P 2024 90 [facility] HYALURONATE NA (DUROLANE) 20MG/ML INJ,SYRINGE ,3ML INJECT 60MG INTRA-AR TICULAR ONE TIME RIGHT KNEE INTRA- ARTICU LAR ACTIVE 02/20/2026 [id number] 5 VIOLETTA THORNTON 2024 1 [facility] [place] HYALURONATE NA (DUROLANE) 20MG/ML INJ,SYRINGE ,3ML INJECT 60MG INTRA-AR TICULAR ONE TIME RIGHT KNEE INTRA- ARTICU LAR DISCONT INUED 02/24/2025 [id number] 5 VIOLETTA THORNTON 2023 1 [facility] [place] HYDROPHILIC (EQV AQUAPHOR) OINT,TOP APPLY LIBERAL AMOUNT TOPICALL Y TWICE DAILY NEEDED FOR DRY SKIN TOPICA L ACTIVE 10/10/2025 [id number] 5 RA BIANCA AGUERO 2024 454 [place] HYDROXYZINE HCL 10MG TAB TAKE ONE TABLET BY MOUTH AT BEDTIME NEEDED FOR INSOMNIA ORAL DISCONT INUED (EDIT) 10/10/2025 [id number] 5 RA BIANCA AGUERO 2024 30 [place] HYDROXYZINE HCL 25MG TAB TAKE ONE TABLET BY MOUTH AT BEDTIME NEEDED FOR INSOMNIA - NOTE DOSE ORAL ACTIVE 01/22/2026 [id number] 5 DECEMBERALEXA P 2024 30 [facility] [place] HYDROXYZINE HCL 25MG TAB TAKE ONE TABLET BY MOUTH AT BEDTIME NEEDED FOR INSOMNIA - NOTE DOSE ORAL DISCONT INUED 10/15/2025 [id number] 5 RA BIANCA AGUERO 2024 30 [place] LATANOPROST 0.005% SOLN,OPH INSTILL 1 DROP INTO EACH EYE AT BEDTIME OPHTHA LMIC 05/13/2024 [id number] 4 ANAHY AIKEN 2022 7.5 [place] LISINOPRIL 10MG TAB TAKE ONE TABLET BY MOUTH ONCE DAILY TO CONTROL BLOOD PRESSURE ORAL DISCONT INUED (EDIT) 01/22/2026 [id number] 5 DECEMBER,ALEXA EISENBERG P 2024 90 [facility] LISINOPRIL 10MG TAB TAKE ONE TABLET BY MOUTH ONCE DAILY TO CONTROL BLOOD PRESSURE ORAL DISCONT INUED 11/20/2025 [id number] 5 RA BIANCA AGUERO 2024 90 [place] LISINOPRIL 10MG TAB TAKE ONE TABLET BY MOUTH ONCE DAILY TO CONTROL BLOOD PRESSURE ORAL DISCONT INUED 11/14/2024 [id number] 4 TWYLA STUARTARI O 2023 90 [place] LISINOPRIL 20MG TAB TAKE ONE TABLET BY MOUTH ONCE DAILY TO CONTROL BLOOD PRESSURE ORAL ACTIVE 01/27/2026 [id number] 5 Yue CHRISTOPHER 2024 30 [facility] [place] METOPROLOL SUCCINATE 50MG TAB,SA TAKE ONE TABLET BY MOUTH ONCE DAILY FOR BLOOD PRESSURE /HEART ORAL ACTIVE 01/22/2026 [id number] 5 DECEMBER,ALEXA EISENBERG P 2024 90 [facility] NALOXONE HCL 4MG/SPRAY SOLN,SPRAY, NASAL INSTILL 1 SPRAY IN THE NOSE ONE TIME FOR OPIOID OVERDOSE CALL 911 WITH ADMINIST RATION. REPEAT WITH SECOND DEVICE IF SYMPTOMS RETURN NASAL ACTIVE 03/23/2026 [id number] 5 BRYANNA COUCH 2024 2 [place] OXYCODONE HCL 5MG TAB TAKE ONE TABLET BY MOUTH TWICE DAILY NEEDED FOR PAIN ORAL 04/22/2024 [id number] NARCISO, LEAHLINARI O 2023 30 [place] TADALAFIL 20MG TAB TAKE ONE TABLET BY MOUTH ONCE DAILY FOR ERECTILE DYSFUNCT ION ORAL ACTIVE 01/22/2026 [id number] 5 DECEMBER,ALEXA RLY P 2024 18 [facility] TADALAFIL 20MG TAB TAKE ONE TABLET BY MOUTH ONCE DAILY ORAL DISCONT INUED 11/25/2025 [id number] 5 RA BIANCA AGUERO 2024 18 [facility] IELD TADALAFIL 20MG TAB TAKE ONE TABLET BY MOUTH ONCE DAILY ORAL DISCONT INUED 11/08/2024 [id number] FADUMO STUART 2023 18 [place] TAMSULOSIN HCL 0.4MG CAP TAKE TWO CAPSULES BY MOUTH ONCE DAILY FOR ENLARGED PROSTATE (TAKE 30 MINUTES AFTER THE SAME MEALTIME EACH DAY) ORAL DISCONT INUED BY JASON Fall 08/01/2025 [id number] 4 RA BIANCA AGUERO 2023 60 [facility] IELD TAMSULOSIN HCL 0.4MG CAP TAKE TWO CAPSULES BY MOUTH ONCE DAILY FOR ENLARGED PROSTATE (TAKE 30 MINUTES AFTER THE SAME MEALTIME EACH DAY) ORAL DISCONT INUED 01/30/2025 [id number] Meron RAY 2023 60 [facility] IELD TERBINAFINE HCL 1% CREAM,TOP APPLY A THIN LAYER TOPICALL Y TWICE DAILY FUNGAL INFECTIO N TOPICA L ACTIVE 03/18/2026 [id number] 5 BRNADY THAKKAR 2024 60 [facility] [place] Immunizations Combined list of available immunizations from the Department of Defense and [facility] Affairs facilities. 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 Status Comments Source INFLUENZA, HIGH-DOSE, QUADRIVALENT 2022 GILDARDO ROWAN LEFT DELTO ID [id number] 197 complet ed [facility] IELD PNEUMOCOCCAL CONJUGATE PCV20, POLYSACCHARID E [id number] CONJUGATE, ADJUVANT, PF 2022 GILDARDO ROWAN RIGHT DELTO ID [id number] 216 complet ed [facility] COVID-19 (MODERNA), MRNA, LNP-S, PF, 100 MCG/0.5ML DOSE OR 50 MCG/0.25ML DOSE 2021 207 complet ed Booster for Series, MOD; [id number]; 2 [place] COVID-19 (MODERNA), MRNA, LNP-S, PF, 100 MCG OR 50 MCG DOSE 3 2020 207 complet ed MOD; [id number]; 2 [place] ZOSTER RECOMBINANT 2 2020 187 complet ed [place] COVID-19 (MODERNA), MRNA, LNP-S, PF, 100 MCG/0.5 ML DOSE 2 2020 207 complet ed MOD; [id number]; 1 [place] COVID-19 (MODERNA), MRNA, LNP-S, PF, 100 MCG/0.5 ML DOSE 1 2020 207 complet ed MOD; [id number]; 1 [place] INFLUENZA, INJECTABLE, QUADRIVALENT, PRESERVATIVE FREE 2019 150 complet ed [place] HEP B, ADULT 2 2019 43 complet ed [place] ZOSTER RECOMBINANT 1 2019 187 complet ed [place] PNEUMOCOCCAL POLYSACCHARID E PPV23 2019 33 complet ed [place] HEP B, ADULT 2018 NONE 43 complet ed Booster for Series, [place] INFLUENZA, SEASONAL, INJECTABLE 2016 141 complet ed [facility] [place] [facility] TDAP 2013 115 [facility] Results Combined list of recent chemistry, hematology [...] 19, 2025 03:06 PM Reporting Lab: [address] [address] Performing Lab: [facility] [place] [facility] [address] [address] [place] IRON & TIBC PANEL IRON BINDING CAPACITY [MASS/VOLU ME] IN SERUM OR PLASMA 367 ug/dL 204 - 475 02/22 Specimen Type: SERUM No comment entered. Ordering Provider: TRAVIS AGUERO Report Released Date/Time: Feb 19, 2025 03:06 PM Reporting Lab: [place] [facility] [place] [facility] [address] [address] Performing Lab: [facility] [place] [facility] [address] [address] [place] IRON & TIBC PANEL IRON [MASS/VOLU ME] IN SERUM OR PLASMA 46 ug/dL 65 - 175 02/22 L Specimen Type: SERUM No comment entered. Ordering Provider: TRAVIS AGUERO Report Released Date/Time: Feb 19, 2025 03:06 PM Reporting Lab: [place] [facility] [place] [facility] [address] [facility] [address] Performing Lab: [place] [facility] [place] [facility] [address] [address] [place] IRON & TIBC PANEL IRON/IRON BINDING CAPACITY.T OTAL [MASS RATIO] IN SERUM OR PLASMA 12.5 15 - 45 02/22 L Specimen Type: SERUM No comment entered. Ordering Provider: TRAVIS AGUERO Report Released Date/Time: Feb 19, 2025 03:06 PM Reporting Lab: [facility] [place] [facility] [address] [address] Performing Lab: [place] [facility] [place] [facility] [address] [facility] [address] [place] IRON & TIBC PANEL TRANSFERRI N [MASS/VOLU ME] IN SERUM OR PLASMA 278 mg/dL 180 - 382 02/22 Specimen Type: SERUM No comment entered. Ordering Provider: TRAVIS AGUERO Report Released Date/Time: Feb 19, 2025 03:06 PM Reporting Lab: [place] [facility] [place] [facility] [address] [address] Performing Lab: [facility]RRUSSELL[facility]ITALTRN [facility] [address] [address] [place] CBC AND DIFF (AUTO) LEUKOCYTES [#/VOLUME] IN BLOOD BY AUTOMATED COUNT 5.97 10*3/uL 4.50 - 11.00 02/22 Specimen Type: BLOOD No comment entered. Ordering Provider: TRAVIS AGUERO Report Released Date/Time: Feb 19, 2025 03:06 PM Reporting Lab: [facility]ITALRRUSSELLVIL[facility]OSPITALTRN [place] [facility] [address] [facility] [address] Performing Lab: [facility]ENTERUSE[address] [address] [place] CBC AND DIFF (AUTO) ERYTHROCYT ES [#/VOLUME] IN BLOOD BY AUTOMATED COUNT 4.01 10*6/uL 4.23 - 5.66 02/22 L Specimen Type: BLOOD No comment entered. Ordering Provider: TRAVIS AGUERO Report Released Date/Time: Feb 19, 2025 03:06 PM Reporting Lab: [facility]PITALRRUSSELLVILLE HOSPITALTRN [facility]ENTERUSEW[facility] [address] [address] Performing Lab: [facility]ENTERUSE[address] [address] [place] CBC AND DIFF (AUTO) HEMOGLOBIN [MASS/VOLU ME] IN BLOOD 11.5 g/dL 12.8 - 17 02/22 L Specimen Type: BLOOD No comment entered. Ordering Provider: TRAVIS AGUERO Report Released Date/Time: Feb 19, 2025 03:06 PM Reporting Lab: [facility]ITALRRUSSELLVILLE HOSPITALTRN [facility]ENTERUSEW[facility] [address] [facility] [address] Performing Lab: [facility]ENTERUSE[address] [address] [place] CBC AND DIFF (AUTO) HEMATOCRIT [VOLUME FRACTION] OF BLOOD BY AUTOMATED COUNT 35.1 39.2 - 50.4 02/22 L Specimen Type: BLOOD No comment entered. Ordering Provider: TRAVIS AGUERO Report Released Date/Time: Feb 19, 2025 03:06 PM Reporting Lab: [facility]ITALRL [facility] [place] [facility] [address] [facility] [address] Performing Lab: [facility]PITALRRUSSELLVILLE HOSPITALTRN [facility]ENTERUSETS [facility] [address] [facility] [address] [place] CBC AND DIFF (AUTO) MCV [ENTITIC VOLUME] BY AUTOMATED COUNT 87.5 fL 82 - 99 02/22 Specimen Type: BLOOD No comment entered. Ordering Provider: TRAVIS AGUERO Report Released Date/Time: Feb 19, 2025 03:06 PM Reporting Lab: [facility]ITALRRUSSELLVILLE HOSPITALTRN [facility]ENTERUSEW[facility] [address] [facility] [address] Performing Lab: [facility]OSPITALRLAMAR REGIONAL HOSPITALN [facility]ENTERUSEW[facility] [address] [address] [place] CBC AND DIFF (AUTO) MCHC [MASS/VOLU ME] BY AUTOMATED COUNT 32.8 g/dL 30.8 - 35.1 02/22 Specimen Type: BLOOD No comment entered. Ordering Provider: TRAVIS AGUERO Report Released Date/Time: Feb 19, 2025 03:06 PM Reporting Lab: [facility]ITALRRUSSELLVILLE HOSPITALTRN [facility] CENTERUSETS [facility] [address] [facility] [address] Performing Lab: [facility] HOSPITALRL TRN [facility] CENTERUSETS [facility] [address] [facility] [address] [place] CBC AND DIFF (AUTO) PLATELETS [#/VOLUME] IN BLOOD BY AUTOMATED COUNT 355 10*3/uL 140 - 360 02/22 Specimen Type: BLOOD No comment entered. Ordering Provider: TRAVIS AGUERO Report Released Date/Time: Feb 19, 2025 03:06 PM Reporting Lab: [facility]ITALRRUSSELLVILLE HOSPITALTRN [facility] CENTERUSETS [facility] [address] [facility] [address] Performing Lab: [facility]ITALRRUSSELLVILLE HOSPITALTRN [facility] CENTERUSETS [facility] [address] [facility] [address] [place] CBC AND DIFF (AUTO) PLATELET MEAN VOLUME [ENTITIC VOLUME] IN BLOOD BY AUTOMATED COUNT 9.3 fL 9.2 - 12.4 02/22 Specimen Type: BLOOD No comment entered. Ordering Provider: TRAVIS AGUERO Report Released Date/Time: Feb 19, 2025 03:06 PM Reporting Lab: [facility]PITALRRUSSELLVILLE HOSPITALTRN [facility] [address] [facility] [address] Performing Lab: [facility]OSPITALRLAMAR REGIONAL HOSPITALN [address] [address] [place] CBC AND DIFF (AUTO) ERYTHROCYT E DISTRIBUTI ON WIDTH [RATIO] BY AUTOMATED COUNT 14.1 12.0 - 16.0 02/22 Specimen Type: BLOOD No comment entered. Ordering Provider: TRAVIS AGUERO Report Released Date/Time: Feb 19, 2025 03:06 PM Reporting Lab: [facility] [address] [address] Performing Lab: [facility] [address] [address] [place] CBC AND DIFF (AUTO) MONOCYTES [#/VOLUME] IN BLOOD BY AUTOMATED COUNT 0.74 10*3/uL 0.30 - 1.10 02/22 Specimen Type: BLOOD No comment entered. Ordering Provider: TRAVIS AGUERO Report Released Date/Time: Feb 19, 2025 03:06 PM Reporting Lab: [facility]PITALRRUSSELLVILLE HOSPITALTRN [facility] CENTERUSETS [address] [address] Performing Lab: [facility]ITALRRUSSELLVILLE HOSPITALTRN [facility] CENTERUSETS [address] [address] [place] CBC AND DIFF (AUTO) MCH [ENTITIC MASS] BY AUTOMATED COUNT 28.7 pg 26.2 - 32.6 02/22 Specimen Type: BLOOD No comment entered. Ordering Provider: TRAVIS AGUERO Report Released Date/Time: Feb 19, 2025 03:06 PM Reporting Lab: [facility]ITALRRUSSELLVILLE HOSPITALTRN [place] [address] [address] Performing Lab: [facility] [address] [address] [place] CBC AND DIFF (AUTO) NEUTROPHIL S/100 LEUKOCYTES IN BLOOD BY AUTOMATED COUNT 47.7 43.7 - 75.8 02/22 Specimen Type: BLOOD No comment entered. Ordering Provider: TRAVIS AGUERO Report Released Date/Time: Feb 19, 2025 03:06 PM Reporting Lab: [facility] [address] [facility] [address] Performing Lab: [facility] [address] [facility] [address] [place] CBC AND DIFF (AUTO) LYMPHOCYTE S/100 LEUKOCYTES IN BLOOD BY AUTOMATED COUNT 34.0 14.0 - 42.3 02/22 Specimen Type: BLOOD No comment entered. Ordering Provider: TRAVIS AGUERO Report Released Date/Time: Feb 19, 2025 03:06 PM Reporting Lab: [facility] CENTERUSETS [address] [address] Performing Lab: [facility] CENTERUSETS [address] [address] [place] CBC AND DIFF (AUTO) MONOCYTES/ 100 LEUKOCYTES IN BLOOD BY AUTOMATED COUNT 12.4 5.1 - 13.7 02/22 Specimen Type: BLOOD No comment entered. Ordering Provider: TRAVIS AGUERO Report Released Date/Time: Feb 19, 2025 03:06 PM Reporting Lab: [facility]PITALRL WSTRN [facility] CENTERUSETS [address] [address] Performing Lab: [facility] [address] [address] [place] CBC AND DIFF (AUTO) EOSINOPHIL S/100 LEUKOCYTES IN BLOOD BY AUTOMATED COUNT 4.7 0.4 - 6.8 02/22 Specimen Type: BLOOD No comment entered. Ordering Provider: TRAVIS AGUERO Report Released Date/Time: Feb 19, 2025 03:06 PM Reporting Lab: [facility]PITALRL WSTRN [facility] [address] [address] Performing Lab: [facility]ENTERUSETS [address] [address] [place] CBC AND DIFF (AUTO) BASOPHILS/ 100 LEUKOCYTES IN BLOOD BY AUTOMATED COUNT 1.0 0.1 - 2.0 02/22 Specimen Type: BLOOD No comment entered. Ordering Provider: TRAVIS AGUERO Report Released Date/Time: Feb 19, 2025 03:06 PM Reporting Lab: [facility]ENTERUSETS [address] [address] Performing Lab: [facility]ENTERUSETS [address] [address] [place] CBC AND DIFF (AUTO) NEUTROPHIL S [#/VOLUME] IN BLOOD BY AUTOMATED COUNT 2.85 10*3/uL 2.20 - 7.60 02/22 Specimen Type: BLOOD No comment entered. Ordering Provider: TRAVIS AGUERO Report Released Date/Time: Feb 19, 2025 03:06 PM Reporting Lab: [facility]ENTERUSETS [address] [address] Performing Lab: [facility] CENTERUSE[address] [address] [place] CBC AND DIFF (AUTO) LYMPHOCYTE S [#/VOLUME] IN BLOOD BY AUTOMATED COUNT 2.03 10*3/uL 1.00 - 3.20 02/22 Specimen Type: BLOOD No comment entered. Ordering Provider: TRAVIS AGUERO Report Released Date/Time: Feb 19, 2025 03:06 PM Reporting Lab: [facility]ENTERUS[facility] [address] [address] Performing Lab: [facility] [address] [address] [place] CBC AND DIFF (AUTO) EOSINOPHIL S [#/VOLUME] IN BLOOD BY AUTOMATED COUNT 0.28 10*3/uL 0.03 - 0.44 02/22 Specimen Type: BLOOD No comment entered. Ordering Provider: TRAVIS AGUERO Report Released Date/Time: Feb 19, 2025 03:06 PM Reporting Lab: [facility] [address] [address] Performing Lab: [facility] [address] [address] [place] CBC AND DIFF (AUTO) BASOPHILS [#/VOLUME] IN BLOOD BY AUTOMATED COUNT 0.06 10*3/uL 0.01 - 0.13 02/22 Specimen Type: BLOOD No comment entered. Ordering Provider: TRAVIS AGUERO Report Released Date/Time: Feb 19, 2025 03:06 PM Reporting Lab: [facility] [place] [facility] [address] [facility] [address] Performing Lab: [facility] [address] [facility] [address] [place] CBC AND DIFF (AUTO) IMMATURE GRANULOCYT ES/100 LEUKOCYTES IN BLOOD BY AUTOMATED COUNT 0.2 0.0 - 0.7 02/22 Specimen Type: BLOOD No comment entered. Ordering Provider: TRAVIS AGUERO Report Released Date/Time: Feb 19, 2025 03:06 PM Reporting Lab: [facility] [address] [address] Performing Lab: [facility] [address] [facility] [address] [place] CBC AND DIFF (AUTO) IMMATURE GRANULOCYT ES [#/VOLUME] IN BLOOD BY AUTOMATED COUNT 0.01 10*3/uL 0.00 - 0.06 02/22 Specimen Type: BLOOD No comment entered. Ordering Provider: TRAVIS AGUERO Report Released Date/Time: Feb 19, 2025 03:06 PM Reporting Lab: [facility] [address] [address] Performing Lab: [facility] [place] [facility] [address] [facility] [address] [place] CBC AND DIFF (AUTO) NUCLEATED ERYTHROCYT ES/100 LEUKOCYTES [RATIO] IN BLOOD BY AUTOMATED COUNT 0.0 0.0 - 0.0 02/22 Specimen Type: BLOOD No comment entered. Ordering Provider: TRAVIS AGUERO Report Released Date/Time: Feb 19, 2025 03:06 PM Reporting Lab: [facility]L [facility]ETS [address] [address] Performing Lab: IN CNTRL W[facility]N [facility]ENTERUSETS [address] [address] [facility] CBC AND DIFF (AUTO) NUCLEATED ERYTHROCYT ES [#/VOLUME] IN BLOOD BY AUTOMATED COUNT 0.00 10*3/uL 0.00 - 0.00 02/22 Specimen Type: BLOOD No comment entered. Ordering Provider: TRAVIS AGUERO Report Released Date/Time: Feb 19, 2025 03:06 PM Reporting Lab: [facility]N [facility] CENTERUSE[address] [address] Performing Lab: IN CNTRL W[facility]N [facility] CENTERUSE[address] [address] [facility] BASIC METABOLI C PANEL (fasting ) UREA NITROGEN [MASS/VOLU ME] IN SERUM OR PLASMA 16 mg/dL 8 - 26 02/22 Specimen Type: SERUM No comment entered. Ordering Provider: MARGARITO CHRISTOPHER Report Released Date/Time: Jan 26, 2025 01:53 PM Reporting Lab: [facility]PITALRRUSSELLVILLE HOSPITALTRN [facility] CENTERUSE[address] [address] Performing Lab: [facility]ITALRL WSTRN [facility] CENTERUSE[address] [address] [facility]RL WSTRN [facility] CENTERUSE [facility] BASIC METABOLI C PANEL (fasting ) GLUCOSE [MASS/VOLU ME] IN SERUM OR PLASMA 103 mg/dL 65 - 100 02/22 H Specimen Type: SERUM No comment entered. Ordering Provider: MARGARITO CHRISTOPHER Report Released Date/Time: Jan 26, 2025 01:53 PM Reporting Lab: [facility]ITALRL WSTRN MASSUSE[address] [address] Performing Lab: IN CNTRL WSTRN [facility] CENTERUSE[address] [address] [facility] W[facility]N MASSUSE [facility] BASIC METABOLI C PANEL (fasting ) SODIUM [MOLES/VOL UME] IN SERUM OR PLASMA 140 mmol/L 136 - 145 02/22 Specimen Type: SERUM No comment entered. Ordering Provider: MARGARITO CHRISTOPHER Report Released Date/Time: Jan 26, 2025 01:53 PM Reporting Lab: [facility]ITALRL W[facility]N [facility]ENTERUSE[address] [address] Performing Lab: [facility] [place] [facility] [address] [facility] [address] [facility]OSPITALRRUSSELLVILLE HOSPITALTRN [facility] CENTERUSE [facility] BASIC METABOLI C PANEL (fasting ) POTASSIUM [MOLES/VOL UME] IN SERUM OR PLASMA 4.1 mmol/L 3.5 - 5.1 02/22 Specimen Type: SERUM No comment entered. Ordering Provider: MARGARITO CHRISTOPHER Report Released Date/Time: Jan 26, 2025 01:53 PM Reporting Lab: [facility]ITALRL [facility]N [place] [address] [address] Performing Lab: [facility]OSPITALRRUSSELLVILLE HOSPITALTRN [facility] CENTERUSE[address] [address] [facility]OSPITALRLAMAR REGIONAL HOSPITALN [facility] CENTERUSE [facility] BASIC METABOLI C PANEL (fasting ) CHLORIDE [MOLES/VOL UME] IN SERUM OR PLASMA 110 mmol/L 98 - 107 02/22 H Specimen Type: SERUM No comment entered. Ordering Provider: MARGARITO CHRISTOPHER Report Released Date/Time: Jan 26, 2025 01:53 PM Reporting Lab: [facility]OSPITALRL TRN [facility] CENTERUSETS [address] [address] Performing Lab: [facility]OSPITALRL TRN [facility] CENTERUSE[address] [address] [facility]OSPITALRLAMAR REGIONAL HOSPITALN [facility]ENTERUSE [facility] BASIC METABOLI C PANEL (fasting ) CARBON DIOXIDE, TOTAL [MOLES/VOL UME] IN SERUM OR PLASMA 23 meq/L 23 - 31 02/22 Specimen Type: SERUM No comment entered. Ordering Provider: MARGARITO CHRISTOPHER Report Released Date/Time: Jan 26, 2025 01:53 PM Reporting Lab: [facility]ITALRL TRN [place] [address] [address] Performing Lab: [facility]OSPITALRL TRN [facility]ENTERUSE[address] [address] [facility] HOSPITALRLAMAR REGIONAL HOSPITALN [facility] CENTERUSE [facility] BASIC METABOLI C PANEL (fasting ) CALCIUM [MASS/VOLU ME] IN SERUM OR PLASMA 8.8 mg/dL 8.8 - 10 02/22 Specimen Type: SERUM No comment entered. Ordering Provider: MARGARITO CHRISTOPHER Report Released Date/Time: Jan 26, 2025 01:53 PM Reporting Lab: [place] [facility] [address] [facility] [address] Performing Lab: IN CNTRL WSTRN [facility] CENTERUSETS [facility] [address] [facility] [address] [facility]OSPITALRL WSTRN [facility] CENTERUSE [facility] BASIC METABOLI C PANEL (fasting ) CREATININE [MASS/VOLU ME] IN SERUM OR PLASMA 0.81 mg/dL 0.72 - 1.25 02/22 Specimen Type: SERUM No comment entered. Ordering Provider: MARGARITO CHRISTOPHER Report Released Date/Time: Jan 26, 2025 01:53 PM Reporting Lab: [facility]OSPITALRL TRN [facility] CENTERUSETS [facility] [address] [facility] [address] Performing Lab: IN CNTRL WSTRN [facility] CENTERUSE[address] [address] [facility] HOSPITALRL TRN [facility] CENTERUSE [facility] BASIC METABOLI C PANEL (fasting ) GLOMERULAR FILTRATION RATE/1.73 SQ M.PREDICTE D [VOLUME RATE/AREA] IN SERUM, PLASMA OR BLOOD BY CREATININE -BASED FORMULA (CKD-EPI 2020) >90mL/mi n 60 02/22 Specimen Type: SERUM No comment entered. Ordering Provider: MARGARITO CHRISTOPHER Report Released Date/Time: Jan 26, 2025 01:53 PM Reporting Lab: [facility]OSPITALRL TRN [facility] CENTERUSETS [facility] [address] [facility] [address] Performing Lab: [facility]OSPITALRL TRN [facility] CENTERUSE[address] [address] [facility] HOSPITALRL [facility] CENTERN [facility] CENTERUSE [facility] CBC AND DIFF (AUTO) LEUKOCYTES [#/VOLUME] IN BLOOD BY AUTOMATED COUNT 7.74 10*3/uL 4.50 - 11.00 01/25 Specimen Type: BLOOD No comment entered. Ordering Provider: LIAM AGUILAR Report Released Date/Time: January 21, 2025 04:16 PM Reporting Lab: IN CNTRL WSTRN [facility] CENTERUSETS [facility] [address] [facility] [address] Performing Lab: IN CNTRL WSTRN [facility] CENTERUSE[address] [address] [facility]OSPITALRL [facility] CENTERN [facility] CENTERUSE [facility] CBC AND DIFF (AUTO) ERYTHROCYT ES [#/VOLUME] IN BLOOD BY AUTOMATED COUNT 3.56 10*6/uL 4.23 - 5.66 01/25 L Specimen Type: BLOOD No comment entered. Ordering Provider: LIAM AGUILAR Report Released Date/Time: January 21, 2025 04:16 PM Reporting Lab: [facility]PITALRRUSSELLVILLE HOSPITALTRN [place] [facility] [address] [facility] [address] Performing Lab: [place]N [place] [facility] [address] [facility] [address] [facility]OSPITALRL TRN [place] TS [facility] CBC AND DIFF (AUTO) HEMOGLOBIN [MASS/VOLU ME] IN BLOOD 10.6 g/dL 12.8 - 17 01/25 L Specimen Type: BLOOD No comment entered. Ordering Provider: LIAM AGUILAR Report Released Date/Time: January 21, 2025 04:16 PM Reporting Lab: [facility]OSPITALRRUSSELLVILLE HOSPITALTRN [facility] CENTERUSETS [address] [address] Performing Lab: [facility] HOSPITALRL TRN [facility] SOUTHCHUSETS [facility] [address] [facility] [address] [facility] HOSPITALRLAMAR REGIONAL HOSPITALN MASSCHUSE [facility] CBC AND DIFF (AUTO) HEMATOCRIT [VOLUME FRACTION] OF BLOOD BY AUTOMATED COUNT 32.7 39.2 - 50.4 01/25 L Specimen Type: BLOOD No comment entered. Ordering Provider: LIAM AGUILAR Report Released Date/Time: January 21, 2025 04:16 PM Reporting Lab: [facility]PITALRRUSSELLVILLE HOSPITALTRN [place] [address] [address] Performing Lab: [facility]OSPITALRL TRN [place] [facility] [address] [facility] [address] [facility] HOSPITALRLAMAR REGIONAL HOSPITALN [place] TS [facility] CBC AND DIFF (AUTO) MCV [ENTITIC VOLUME] BY AUTOMATED COUNT 91.9 fL 82 - 99 01/25 Specimen Type: BLOOD No comment entered. Ordering Provider: LIAM AGUILAR Report Released Date/Time: January 21, 2025 04:16 PM Reporting Lab: [facility]PITALRRUSSELLVILLE HOSPITALTRN [place] [facility] [address] [facility] [address] Performing Lab: [facility] HOSPITALRL TRN [place] [address] [place] [address] [facility]OSPITALRL WSTRN [place] [facility] CBC AND DIFF (AUTO) MCHC [MASS/VOLU ME] BY AUTOMATED COUNT 32.4 g/dL 30.8 - 35.1 01/25 Specimen Type: BLOOD No comment entered. Ordering Provider: LIAM AGUILAR Report Released Date/Time: January 21, 2025 04:16 PM Reporting Lab: [facility]ITALRL [facility]N [place] [facility] [address] [facility] [address] Performing Lab: [place] [facility] [address] [facility] [address] [facility]ITALR WSTRN [place] [facility] CBC AND DIFF (AUTO) PLATELETS [#/VOLUME] IN BLOOD BY AUTOMATED COUNT 606 10*3/uL 140 - 360 01/25 H Specimen Type: BLOOD No comment entered. Ordering Provider: LIAM AGUILAR Report Released Date/Time: January 21, 2025 04:16 PM Reporting Lab: [facility]ITALRL TRN [place] [facility] [address] [facility] [address] Performing Lab: [facility]ITALRL [facility]N [place] [facility] [address] [facility] [address] [facility]ITALRL TRN [place] [facility] CBC AND DIFF (AUTO) PLATELET MEAN VOLUME [ENTITIC VOLUME] IN BLOOD BY AUTOMATED COUNT 9.2 fL 9.2 - 12.4 01/25 Specimen Type: BLOOD No comment entered. Ordering Provider: LIAM AGUILAR Report Released Date/Time: January 21, 2025 04:16 PM Reporting Lab: [facility]ITALRL [facility]N [place] [facility] [address] [facility] [address] Performing Lab: [place] [facility] [address] [facility] [address] [facility]ITALRL TRN [place] [facility] CBC AND DIFF (AUTO) ERYTHROCYT E DISTRIBUTI ON WIDTH [RATIO] BY AUTOMATED COUNT 15.1 12.0 - 16.0 01/25 Specimen Type: BLOOD No comment entered. Ordering Provider: LIAM AGUILAR Report Released Date/Time: January 21, 2025 04:16 PM Reporting Lab: [place] [facility] [address] [facility] [address] Performing Lab: [place] [facility] [address] [facility] [address] [place] [facility] CBC AND DIFF (AUTO) MONOCYTES [#/VOLUME] IN BLOOD BY AUTOMATED COUNT 0.81 10*3/uL 0.30 - 1.10 01/25 Specimen Type: BLOOD No comment entered. Ordering Provider: LIAM AGUILAR Report Released Date/Time: January 21, 2025 04:16 PM Reporting Lab: [place] [facility] [address] [facility] [address] Performing Lab: [place] [facility] [address] [facility] [address] [place] [facility] CBC AND DIFF (AUTO) MCH [ENTITIC MASS] BY AUTOMATED COUNT 29.8 pg 26.2 - 32.6 01/25 Specimen Type: BLOOD No comment entered. Ordering Provider: LIAM AGUILAR Report Released Date/Time: January 21, 2025 04:16 PM Reporting Lab: [place] [address] [address] Performing Lab: [place] [facility] [address] [facility] [address] [facility]ITALRL WSTRN [place] [facility] CBC AND DIFF (AUTO) NEUTROPHIL S/100 LEUKOCYTES IN BLOOD BY AUTOMATED COUNT 51.9 43.7 - 75.8 01/25 Specimen Type: BLOOD No comment entered. Ordering Provider: LIAM AGUILAR Report Released Date/Time: January 21, 2025 04:16 PM Reporting Lab: [place] [address] [address] Performing Lab: [place] [address] [address] [facility]ITALRL W[facility]N [place] [facility] CBC AND DIFF (AUTO) LYMPHOCYTE S/100 LEUKOCYTES IN BLOOD BY AUTOMATED COUNT 32.4 14.0 - 42.3 01/25 Specimen Type: BLOOD No comment entered. Ordering Provider: LIAM AGUILAR Report Released Date/Time: January 21, 2025 04:16 PM Reporting Lab: [facility] [place] [facility] [address] [facility] [address] Performing Lab: [facility] [place] [facility] [address] [facility] [address] [facility] [place] [facility] CBC AND DIFF (AUTO) MONOCYTES/ 100 LEUKOCYTES IN BLOOD BY AUTOMATED COUNT 10.5 5.1 - 13.7 01/25 Specimen Type: BLOOD No comment entered. Ordering Provider: LIAM AGUILAR Report Released Date/Time: January 21, 2025 04:16 PM Reporting Lab: [facility] [place] [facility] [address] [facility] [address] Performing Lab: [facility] [place] [facility] [address] [facility] [address] [facility] [place] [facility] CBC AND DIFF (AUTO) EOSINOPHIL S/100 LEUKOCYTES IN BLOOD BY AUTOMATED COUNT 4.0 0.4 - 6.8 01/25 Specimen Type: BLOOD No comment entered. Ordering Provider: LIAM AGUILAR Report Released Date/Time: January 21, 2025 04:16 PM Reporting Lab: [facility] [place] [facility] [address] [facility] [address] Performing Lab: [facility] [place] [facility] [address] [facility] [address] [facility] [place] [facility] CBC AND DIFF (AUTO) BASOPHILS/ 100 LEUKOCYTES IN BLOOD BY AUTOMATED COUNT 0.9 0.1 - 2.0 01/25 Specimen Type: BLOOD No comment entered. Ordering Provider: LIAM AGUILAR Report Released Date/Time: January 21, 2025 04:16 PM Reporting Lab: [facility] [place] [facility] [address] [facility] [address] Performing Lab: [facility] [place] [facility] [address] [facility] [address] [facility] [place] [facility] CBC AND DIFF (AUTO) NEUTROPHIL S [#/VOLUME] IN BLOOD BY AUTOMATED COUNT 4.02 10*3/uL 2.20 - 7.60 01/25 Specimen Type: BLOOD No comment entered. Ordering Provider: LIAM AGUILAR Report Released Date/Time: January 21, 2025 04:16 PM Reporting Lab: [place] [address] [address] Performing Lab: [place] [address] [address] [place] [facility] CBC AND DIFF (AUTO) LYMPHOCYTE S [#/VOLUME] IN BLOOD BY AUTOMATED COUNT 2.51 10*3/uL 1.00 - 3.20 01/25 Specimen Type: BLOOD No comment entered. Ordering Provider: LIAM AGUILAR Report Released Date/Time: January 21, 2025 04:16 PM Reporting Lab: [facility] [address] [address] Performing Lab: [place] [address] [address] [place] [facility] CBC AND DIFF (AUTO) EOSINOPHIL S [#/VOLUME] IN BLOOD BY AUTOMATED COUNT 0.31 10*3/uL 0.03 - 0.44 01/25 Specimen Type: BLOOD No comment entered. Ordering Provider: LIAM AGUILAR Report Released Date/Time: January 21, 2025 04:16 PM Reporting Lab: [place] [address] [address] Performing Lab: [place] [address] [address] [place] [facility] CBC AND DIFF (AUTO) BASOPHILS [#/VOLUME] IN BLOOD BY AUTOMATED COUNT 0.07 10*3/uL 0.01 - 0.13 01/25 Specimen Type: BLOOD No comment entered. Ordering Provider: LIAM AGUILAR Report Released Date/Time: January 21, 2025 04:16 PM Reporting Lab: [place] [address] [address] Performing Lab: [place] [facility] [facility] [address] [facility] [address] [facility] [place] [facility] CBC AND DIFF (AUTO) IMMATURE GRANULOCYT ES/100 LEUKOCYTES IN BLOOD BY AUTOMATED COUNT 0.3 0.0 - 0.7 01/25 Specimen Type: BLOOD No comment entered. Ordering Provider: LIAM AGUILAR Report Released Date/Time: January 21, 2025 04:16 PM Reporting Lab: [facility] [place] [facility] [address] [facility] [address] Performing Lab: [place] [facility] [address] [facility] [address] [place] [facility] CBC AND DIFF (AUTO) IMMATURE GRANULOCYT ES [#/VOLUME] IN BLOOD BY AUTOMATED COUNT 0.02 10*3/uL 0.00 - 0.06 01/25 Specimen Type: BLOOD No comment entered. Ordering Provider: LIAM AGUILAR Report Released Date/Time: January 21, 2025 04:16 PM Reporting Lab: [place] [facility] [address] [facility] [address] Performing Lab: [place] [facility] [address] [facility] [address] [place] [facility] CBC AND DIFF (AUTO) NUCLEATED ERYTHROCYT ES/100 LEUKOCYTES [RATIO] IN BLOOD BY AUTOMATED COUNT 0.0 0.0 - 0.0 01/25 Specimen Type: BLOOD No comment entered. Ordering Provider: LIAM AGUILAR Report Released Date/Time: January 21, 2025 04:16 PM Reporting Lab: [place] [address] [address] Performing Lab: [place] [address] [address] [facility] [place] [facility] CBC AND DIFF (AUTO) NUCLEATED ERYTHROCYT ES [#/VOLUME] IN BLOOD BY AUTOMATED COUNT 0.00 10*3/uL 0.00 - 0.00 01/25 Specimen Type: BLOOD No comment entered. Ordering Provider: LIAM AGUILAR Report Released Date/Time: January 21, 2025 04:16 PM Reporting Lab: [facility] [place] [facility] [address] [facility] [address] Performing Lab: [facility] [place] [facility] [address] [facility] [address] [facility] [place] [facility] IRON & TIBC PANEL IRON BINDING CAPACITY [MASS/VOLU ME] IN SERUM OR PLASMA 351 ug/dL 204 - 475 11/05 Specimen Type: SERUM No comment entered. Ordering Provider: TRAVIS AGUERO Report Released Date/Time: Oct 14, 2024 12:52 PM Reporting Lab: [facility] [place] [facility] [address] [facility] [address] Performing Lab: [facility] [place] [facility] [address] [facility] [address] [facility] [facility] IRON & TIBC PANEL IRON [MASS/VOLU ME] IN SERUM OR PLASMA 167 ug/dL 40 - 160 11/05 H Specimen Type: SERUM No comment entered. Ordering Provider: TRAVIS AGUERO Report Released Date/Time: Oct 14, 2024 12:52 PM Reporting Lab: [facility] [place] [facility] [address] [facility] [address] Performing Lab: [facility] [place] [facility] [address] [facility] [address] [facility] [facility] IRON & TIBC PANEL IRON/IRON BINDING CAPACITY.T OTAL [MASS RATIO] IN SERUM OR PLASMA 47.6 20.0 - 50.0 11/05 Specimen Type: SERUM No comment entered. Ordering Provider: TRAVIS AGUERO Report Released Date/Time: Oct 14, 2024 12:52 PM Reporting Lab: [facility] [place] [facility] [address] [facility] [address] Performing Lab: [facility] [place] [facility] [address] [facility] [address] [facility] [place] [facility] IRON & TIBC PANEL TRANSFERRI N [MASS/VOLU ME] IN SERUM OR PLASMA 266 mg/dL 200 - 360 11/05 Specimen Type: SERUM No comment entered. Ordering Provider: TRAVIS AGUERO Report Released Date/Time: Oct 14, 2024 12:52 PM Reporting Lab: [place] [address] [address] Performing Lab: [place] [address] [address] [facility] [facility] FERRITIN FERRITIN [MASS/VOLU ME] IN SERUM OR PLASMA 38 ng/mL 20 - 300 11/05 Specimen Type: SERUM No comment entered. Ordering Provider: TRAVIS AGUERO Report Released Date/Time: Oct 14, 2024 12:52 PM Reporting Lab: [facility]RL TRN [facility]ENTERUSETS [address] [address] Performing Lab: [place] [address] [address] [facility]RL WSTRN [facility] TS [facility] CBC AND DIFF (AUTO) LEUKOCYTES [#/VOLUME] IN BLOOD BY AUTOMATED COUNT 5.02 10*3/uL 4.50 - 11.00 11/05 Specimen Type: BLOOD No comment entered. Ordering Provider: TRAVIS AGUERO Report Released Date/Time: Oct 14, 2024 12:52 PM Reporting Lab: [place] [address] [address] Performing Lab: [facility] [place] [address] [address] [facility]RL W[facility]N [place] [facility] CBC AND DIFF (AUTO) ERYTHROCYT ES [#/VOLUME] IN BLOOD BY AUTOMATED COUNT 4.56 10*6/uL 4.23 - 5.66 11/05 Specimen Type: BLOOD No comment entered. Ordering Provider: TRAVIS AGUERO Report Released Date/Time: Oct 14, 2024 12:52 PM Reporting Lab: [place] [address] [address] Performing Lab: [facility] [place] [facility] [address] [facility] [address] [facility] CBC AND DIFF (AUTO) HEMOGLOBIN [MASS/VOLU ME] IN BLOOD 13.3 g/dL 12.8 - 17 11/05 Specimen Type: BLOOD No comment entered. Ordering Provider: TRAVIS AGUERO Report Released Date/Time: Oct 14, 2024 12:52 PM Reporting Lab: [facility] [place] [facility] [address] [facility] [address] Performing Lab: [facility] [place] [facility] [address] [facility] [address] [facility] [place] [facility] CBC AND DIFF (AUTO) HEMATOCRIT [VOLUME FRACTION] OF BLOOD BY AUTOMATED COUNT 40.0 39.2 - 50.4 11/05 Specimen Type: BLOOD No comment entered. Ordering Provider: TRAVIS AGUERO Report Released Date/Time: Oct 14, 2024 12:52 PM Reporting Lab: [facility] [place] [facility] [address] [facility] [address] Performing Lab: [facility] [place] [facility] [address] [facility] [address] [facility] [place] [facility] CBC AND DIFF (AUTO) MCV [ENTITIC VOLUME] BY AUTOMATED COUNT 87.7 fL 82 - 99 11/05 Specimen Type: BLOOD No comment entered. Ordering Provider: TRAVIS AGUERO Report Released Date/Time: Oct 14, 2024 12:52 PM Reporting Lab: [facility] [place] [facility] [address] [facility] [address] Performing Lab: [facility] [place] [facility] [address] [facility] [address] [facility] [place] [facility] CBC AND DIFF (AUTO) MCHC [MASS/VOLU ME] BY AUTOMATED COUNT 33.3 g/dL 30.8 - 35.1 11/05 Specimen Type: BLOOD No comment entered. Ordering Provider: TRAVIS AGUERO Report Released Date/Time: Oct 14, 2024 12:52 PM Reporting Lab: [facility] [place] [facility] [address] [facility] [address] Performing Lab: [facility] [place] [facility] [address] [facility] [address] [facility] [place] CBC AND DIFF (AUTO) PLATELETS [#/VOLUME] IN BLOOD BY AUTOMATED COUNT 344 10*3/uL 140 - 360 11/05 Specimen Type: BLOOD No comment entered. Ordering Provider: TRAVIS AGUERO Report Released Date/Time: Oct 14, 2024 12:52 PM Reporting Lab: [facility] [place] [facility] [address] [facility] [address] Performing Lab: [facility] [place] [facility] [address] [facility] [address] [facility] [place] CBC AND DIFF (AUTO) ERYTHROCYT E DISTRIBUTI ON WIDTH [RATIO] BY AUTOMATED COUNT 14.5 12.0 - 16.0 11/05 Specimen Type: BLOOD No comment entered. Ordering Provider: TRAVIS AGUERO Report Released Date/Time: Oct 14, 2024 12:52 PM Reporting Lab: [facility] [address] [facility] [facility] [address] Performing Lab: [facility] [address] [facility] [facility] [address] [facility] CBC AND DIFF (AUTO) MONOCYTES [#/VOLUME] IN BLOOD BY AUTOMATED COUNT 0.58 10*3/uL 0.30 - 1.10 11/05 Specimen Type: BLOOD No comment entered. Ordering Provider: TRAVIS AGUERO Report Released Date/Time: Oct 14, 2024 12:52 PM Reporting Lab: [facility] [address] [facility] [facility] [address] Performing Lab: [facility] [address] [facility] [facility] [address] [facility] CBC AND DIFF (AUTO) MCH [ENTITIC MASS] BY AUTOMATED COUNT 29.2 pg 26.2 - 32.6 11/05 Specimen Type: BLOOD No comment entered. Ordering Provider: TRAVIS AGUERO Report Released Date/Time: Oct 14, 2024 12:52 PM Reporting Lab: [facility] [address] [facility] [facility] [address] Performing Lab: [facility] [place] [facility] [address] [facility] [facility] [address] [facility] CBC AND DIFF (AUTO) NEUTROPHIL S/100 LEUKOCYTES IN BLOOD BY AUTOMATED COUNT 40.4 43.7 - 75.8 11/05 L Specimen Type: BLOOD No comment entered. Ordering Provider: TRAVIS AGUERO Report Released Date/Time: Oct 14, 2024 12:52 PM Reporting Lab: [facility] [place] [address] [address] Performing Lab: [facility] [place] [facility] [address] [facility] [facility] [address] [facility] CBC AND DIFF (AUTO) LYMPHOCYTE S/100 LEUKOCYTES IN BLOOD BY AUTOMATED COUNT 41.2 14.0 - 42.3 11/05 Specimen Type: BLOOD No comment entered. Ordering Provider: TRAVIS AGUERO Report Released Date/Time: Oct 14, 2024 12:52 PM Reporting Lab: [facility] [place] [facility] [address] [facility] [facility] [address] Performing Lab: [facility] [address] [facility] [facility] [address] [facility] CBC AND DIFF (AUTO) MONOCYTES/ 100 LEUKOCYTES IN BLOOD BY AUTOMATED COUNT 11.6 5.1 - 13.7 11/05 Specimen Type: BLOOD No comment entered. Ordering Provider: TRAVIS AGUERO Report Released Date/Time: Oct 14, 2024 12:52 PM Reporting Lab: [facility] [place] [address] [address] Performing Lab: [facility] [address] [facility] [address] [facility] CBC AND DIFF (AUTO) EOSINOPHIL S/100 LEUKOCYTES IN BLOOD BY AUTOMATED COUNT 5.4 0.4 - 6.8 11/05 Specimen Type: BLOOD No comment entered. Ordering Provider: TRAVIS AGUERO Report Released Date/Time: Oct 14, 2024 12:52 PM Reporting Lab: [facility] [address] [facility] [address] Performing Lab: [facility] [address] [facility] [facility] [address] [facility] CBC AND DIFF (AUTO) BASOPHILS/ 100 LEUKOCYTES IN BLOOD BY AUTOMATED COUNT 1.2 0.1 - 2.0 11/05 Specimen Type: BLOOD No comment entered. Ordering Provider: TRAVIS AGUERO Report Released Date/Time: Oct 14, 2024 12:52 PM Reporting Lab: [facility] [address] [facility] [facility] [address] Performing Lab: [facility] [address] [facility] [facility] [address] [facility] CBC AND DIFF (AUTO) NEUTROPHIL S [#/VOLUME] IN BLOOD BY AUTOMATED COUNT 2.03 10*3/uL 2.20 - 7.60 11/05 L Specimen Type: BLOOD No comment entered. Ordering Provider: TRAVIS AGUERO Report Released Date/Time: Oct 14, 2024 12:52 PM Reporting Lab: [facility] [address] [facility] [facility] [address] Performing Lab: [facility] [address] [facility] [address] [facility] CBC AND DIFF (AUTO) LYMPHOCYTE S [#/VOLUME] IN BLOOD BY AUTOMATED COUNT 2.07 10*3/uL 1.00 - 3.20 11/05 Specimen Type: BLOOD No comment entered. Ordering Provider: TRAVIS AGUERO Report Released Date/Time: Oct 14, 2024 12:52 PM Reporting Lab: [facility] [address] [facility] [address] Performing Lab: [facility] [address] [facility] [facility] [address] [facility] CBC AND DIFF (AUTO) EOSINOPHIL S [#/VOLUME] IN BLOOD BY AUTOMATED COUNT 0.27 10*3/uL 0.03 - 0.44 11/05 Specimen Type: BLOOD No comment entered. Ordering Provider: TRAVIS AGUERO Report Released Date/Time: Oct 14, 2024 12:52 PM Reporting Lab: [facility] [place] [facility] [address] [facility] [address] Performing Lab: [facility] [place] [facility] [address] [facility] [address] [facility] CBC AND DIFF (AUTO) BASOPHILS [#/VOLUME] IN BLOOD BY AUTOMATED COUNT 0.06 10*3/uL 0.01 - 0.13 11/05 Specimen Type: BLOOD No comment entered. Ordering Provider: TRAVIS AGUERO Report Released Date/Time: Oct 14, 2024 12:52 PM Reporting Lab: [facility] [place] [facility] [address] [facility] [address] Performing Lab: [facility] [facility] [address] [facility] [address] [facility] CBC AND DIFF (AUTO) IMMATURE GRANULOCYT ES/100 LEUKOCYTES IN BLOOD BY AUTOMATED COUNT 0.2 0.0 - 0.7 11/05 Specimen Type: BLOOD No comment entered. Ordering Provider: TRAVIS AGUERO Report Released Date/Time: Oct 14, 2024 12:52 PM Reporting Lab: [facility] [place] [facility] [address] [facility] [address] Performing Lab: [facility] [place] [facility] [address] [facility] [address] [facility] CBC AND DIFF (AUTO) IMMATURE GRANULOCYT ES [#/VOLUME] IN BLOOD BY AUTOMATED COUNT 0.01 10*3/uL 0.00 - 0.06 11/05 Specimen Type: BLOOD No comment entered. Ordering Provider: TRAVIS AGUERO Report Released Date/Time: Oct 14, 2024 12:52 PM Reporting [facility]: [facility] [place] [facility] [address] [facility] [facility] [address] Performing Lab: [facility] [place] [facility] [address] [facility] [facility] [address] [facility] [place] [facility] CBC AND DIFF (AUTO) NUCLEATED ERYTHROCYT ES/100 LEUKOCYTES [RATIO] IN BLOOD BY AUTOMATED COUNT 0.0 0.0 - 0.0 11/05 Specimen Type: BLOOD No comment entered. Ordering Provider: TRAVIS AGUERO Report Released Date/Time: Oct 14, 2024 12:52 PM Reporting Lab: [facility] [place] [facility] [address] [facility] [address] Performing Lab: [facility] [address] [facility] [address] [facility] [place] [facility] CBC AND DIFF (AUTO) NUCLEATED ERYTHROCYT ES [#/VOLUME] IN BLOOD BY AUTOMATED COUNT 0.00 10*3/uL 0.00 - 0.00 11/05 Specimen Type: BLOOD No comment entered. Ordering Provider: TRAVIS AGUERO Report Released Date/Time: Oct 14, 2024 12:52 PM Reporting Lab: [facility] [place] [facility] [address] [facility] [address] Performing Lab: [facility] [address] [facility] [facility] [address] [facility] OCCULT BLOOD FIT X1 SCREEN(I N-HOUSE) HEMOGLOBIN .GASTROINT ESTINAL.LO WER [PRESENCE] IN STOOL BY IMMUNOASSA Y POSITIVE 10/11 HH Specimen Type: FECES No comment entered. Ordering Provider: TRAVIS AGUERO Report Released Date/Time: Oct 09, 2024 10:32 AM Reporting Lab: [facility] [address] [facility] [address] Performing Lab: [facility] [address] [facility] [address] [facility] FERRITIN [MASS/VOLU ME] IN SERUM OR PLASMA 40 ng/mL 20 - 300 10/09 Specimen Type: SERUM No comment entered. Ordering Provider: TRAVIS AGUERO Report Released Date/Time: Oct 09, 2024 10:43 AM Reporting Lab: [facility] [address] [facility] [address] Performing Lab: [facility] [place] [facility] [address] [facility] [address] [facility] Vital Signs Combined list of inpatient and outpatient Vital Signs from Department of Defense and Veterans Affairs, ranging from 12 months to all on record, depending upon the facility. Vital Sign Value Date Comments Source SYSTOLIC BLOOD PRESSURE 153 03/22/20 25 10:32:05 [facility] DIASTOLIC BLOOD PRESSURE 84 025 10:32:05 [facility] PULSE OXIMETRY 96 % 03/22/2025 10:32:05 [facility] PAIN 4 03/22/2025 10:32:05 [facility] TEMPERATURE 97.5 03/22/2025 10:32:05 [facility] PULSE 60 03/22/2025 10:32:05 [facility] RESPIRATION 16 03/22/2025 10:32:05 [facility] SYSTOLIC BLOOD PRESSURE 144 03/17/20 25 13:05:00 [place] DIASTOLIC BLOOD PRESSURE 83 025 13:05:00 [place] PULSE OXIMETRY 98 % 03/17/2025 13:05:00 [place] PAIN 0 03/17/2025 13:05:00 [place] TEMPERATURE 98 03/17/2025 13:05:00 [place] PULSE 80 03/17/2025 13:05:00 [place] RESPIRATION 16 03/17/2025 13:05:00 [place] SYSTOLIC BLOOD PRESSURE 130 02/24/20 13:02:42 [facility] DIASTOLIC BLOOD PRESSURE 70 025 13:02:42 [facility] PAIN 10 02/23/2025 13:02:42 [facility] [facility] SYSTOLIC BLOOD PRESSURE 144 02/20/20 14:35:01 [place] DIASTOLIC BLOOD PRESSURE 78 025 14:35:01 [place] PULSE OXIMETRY 97 % 02/19/2025 14:35:01 [place] WEIGHT 258.8 02/19/2025 14:35:01 [place] BMI 35 kg/m2 02/19/2025 14:35:01 [place] TEMPERATURE 96.9 02/19/2025 14:35:01 [place] PULSE 77 02/19/2025 14:35:01 [place] SYSTOLIC BLOOD PRESSURE 135 10/09/19 10:25:35 [place] DIASTOLIC BLOOD PRESSURE 83 025 10:25:35 [place] PULSE OXIMETRY 97 10/09/2024 10:25:35 [place] WEIGHT 247 10/09/2024 10:25:35 [place] BMI 34 kg/m2 10/09/2024 10:25:35 [place] TEMPERATURE 96.9 10/09/2024 10:25:35 [place] PULSE 90 10/09/2024 10:25:35 [place] Encounters Combined list of: 1) Encounters from Department of Veterans Affairs facilities going backup to the last 18 months, not all [place] inpatient encounters are included; 2) Encounters from the Department of Defense facilities going backup to 280 months. Location Location Details Encounter Type Encounter Number Reason For Visit Attending Provider ADM Date DC Date Status Disposition Source [facility] Out[facility] Encounter [id number] 10/21 [facility] Outpatient Encounter [id number] 10/21 [facility] Outpatient Encounter [id number] 10/29 [facility] Out[facility]counter [id number] 10/30 [facility] Outpatient Encounter [id number] 10/30 [facility] Out[facility] Encounter [id number] 10/31 [facility] Out[facility] Encounter [id number] 11/04 [facility] Out[facility] Encounter [id number] 11/06 [facility] Out[facility] Encounter [id number] 11/06 [facility] Out[facility] Encounter [id number] 11/12 [facility] Out[facility] Encounter [id number] 11/13 [facility] Encounter [id number] 11/14 [facility] Out[facility] Encounter [id number] 11/16 [facility]counter [id number] 11/19 [facility] Encounter [id number] 11/25 [facility] [place] OFFICE O/P EST MOD 30 MIN [id number] Diagnos is: ICD-10- CM F43.21 Adjustm ent disorde r with depress ed mood Felipa STUART POLINARIO 11/25 [facility] [place] Outpatient Encounter [id number] 12/02 [facility] [place] [facility] En[facility] [id number] 12/02 [place] [facility] OFFICE O/P EST HI 40 MIN [id number] Diagnos is: ICD-10- CM 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, lumbar region MICHAEL HERNANDEZ THI 12/02 [facility] En[facility] [id number] 12/03 [facility] Encounter [id number] 12/04 [facility] Encounter [id number] 12/16 [facility] Encounter [id number] 12/16 [facility] Encounter [id number] 12/16 [facility] Encounter [id number] 12/18 [facility] Out[facility] Encounter [id number] 12/18 [facility] Encounter [id number] 12/19 [facility] Encounter [id number] 12/25 [facility] Encounter [id number] 12/26 [facility] Encounter [id number] 12/29 [facility] Encounter [id number] 12/29 [facility] Encounter [id number] 12/30 [facility] OFFICE O/P EST MOD 30 MIN [id number] Diagnos is: ICD-10- CM Z09 Encntr for f/u exam aft trtmt for cond oth than yaredig Felipa Del Real 12/30 [place] [facility] Out[facility] Encounter [id number] 12/31 [facility] Encounter [id number] 01/06 [facility] Encounter [id number] 01/06 [facility] Encounter [id number] 01/09 [facility] Encounter [id number] 01/12 [facility] OFFICE O/P EST SF 10 MIN [id number] Diagnos is: ICD-10- CM M47.896 Other spondyl osis, lumbar region Meron THORNTON 01/14 [facility] Encounter [id number] 01/15 [facility] Encounter [id number] 01/16 [facility] Encounter [id number] 01/19 [facility] Encounter [id number] 01/23 [facility] Encounter [id number] 01/23 [facility] Encounter [id number] 01/23 [facility] Out[facility] Encounter [id number] 01/23 [facility] [place] ELECTROCAR DIOGRAM REPORT [id number] Diagnos is: ICD-10- CM Z13.6 Encount er for screeni ng for cardiov ascular disorde rs MCKAY,PAR UL U 01/23 [place] [facility] OFFICE O/P EST HI 40 MIN [id number] Diagnos is: ICD-10- CM G40.89 Other seizure s CORYDA VID A 01/23 [facility] [facility] Out[facility] Encounter [id number] 01/23 [facility] Encounter [id number] 01/27 [facility] Out[facility] Encounter [id number] 01/28 [facility] Out[facility] Encounter [id number] 01/29 [facility] Encounter [id number] 01/29 [facility] Out[facility] Encounter [id number] 01/31 [facility] COMPRE OPH EXAM EST PT 1/> [id number] Diagnos is: ICD-10- CM 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, bilater al, severe stage DEVIN TUTTLE H B 02/02 [facility] FIT SPECTACLES MONOFOCAL [id number] Diagnos is: ICD-10- CM Z46.0 Encount er for fit/adj st of spectac les and contact lenses DEVIN TUTTLE H B 02/02 [facility] Out[facility] Encounter [id number] 02/04 [facility] Outpatient Encounter [id number] 02/05 [facility] [place] OFF[place] O/P EST LOW 20 MIN [id number] Diagnos is: ICD-10- CM L60.3 Nail dystrop hy LORENA SHELLEY ES F 02/05 [place] [facility] OFFICE O/P EST HI 40 MIN [id number] Diagnos is: ICD-10- CM M46.1 Sacroil iitis, not elsewhe re classif ied MICHAEL HERNANDEZ 02/13 [facility] Out[facility] En[facility] [id number] 02/13 [facility] OFFICE O/P EST LOW 20 MIN [id number] Diagnos is: ICD-10- CM M47.897 Other spondyl osis, lumbosa cral region Meron THORNTON 02/23 [facility] Out[facility] Encounter [id number] 02/23 [facility] Out[facility] Encounter [id number] 02/24 [facility] Out[facility] Encounter [id number] 03/06 [facility] REPLACEMEN T FACEMASK INTERFA [id number] Diagnos is: ICD-10- CM G47.33 Obstruc tive sleep apnea (adult) (pediat minerva) GRAYSON DOWELL 03/07 [facility] Out[facility] En[facility] [id number] 03/10 [facility] OFFICE O/P EST LOW 20 MIN [id number] Diagnos is: ICD-10- CM M17.0 Bilater al primary osteoar thritis of knee Meron THORNTON 03/16 [facility] Out[facility] Encounter [id number] 03/23 [facility] OFFICE O/P EST MOD 30 MIN [id number] Diagnos is: ICD-10- CM Z08 Encntr for follow- up exam after trtmt for maligna nt neoplas m Felipa STUART 03/23 [place] [facility] OFFICE O/P EST HI 40 MIN [id number] Diagnos is: ICD-10- CM M47.896 Other spondyl osis, lumbar region MICHAEL HERNANDEZ 04/15 [facility] En[facility] [id number] 04/15 [facility]counter [id number] 04/17 [facility]counter [id number] 05/07 [facility]counter [id number] 05/15 [facility]counter [id number] 05/16 [facility] Encounter [id number] 05/26 [facility] [place] [facility] W PT 30 MINUTES [id number] Diagnos is: ICD-10- CM F32.A Depress ion, unspeci fied VINOCOUR,J ILL M 06/04 [place] [facility] En[facility] [id number] 1.06/11 [facility] [place] [facility] W PT 30 MINUTES [id number] Diagnos is: ICD-10- CM F51.01 Primary insomni a VINOCOUR,J ILL M 06/25 [place] OFF[place] O/P EST MOD 30 MIN [id number] Diagnos is: ICD-10- CM L60.3 Nail dystrop hy ROSS,CHARL ES F 06/25 [place] [facility] Out[facility] En[facility] [id number] 07/14 [facility]counter [id number] 07/14 [facility] Out[facility]counter [id number] 07/14 [facility] Encounter [id number] 07/20 [facility] INTRM OPH EXAM EST PATIENT [id number] Diagnos is: ICD-10- CM 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, bilater al, severe stage DEVIN TUTTLE 07/30 [facility] Out[facility] Encounter [id number] 07/30 [facility] FIT SPECTACLES MONOFOCAL [id number] Diagnos is: ICD-10- CM Z46.0 Encount er for fit/adj st of spectac les and contact lenses DEVIN TUTTLE 07/31 [facility] Out[facility] Encounter [id number] 08/05 [facility] [place] OFF/OP EST DECEMBER X REQ PHY/QHP [id number] Diagnos is: ICD-10- CM M54.50 Low back pain, unspeci fied HARPAL,ER IC K 08/05 [place] [facility] Out[facility] Encounter [id number] 08/10 [facility] [place] OFF/OP EST MAY X REQ PHY/QHP [id number] Diagnos is: ICD-10- CM R09.81 Nasal congest ion SIDRA ROWAN IC K 08/17 [place] [facility] Out[facility] Encounter [id number] [facility] Encounter [id number] [facility] Encounter [id number] 08/28 [facility] OFFICE O/P EST HI 40 MIN [id number] Diagnos is: ICD-10- CM M47.896 Other spondyl osis, lumbar region MICHAEL HERNANDEZ BARI HILDA 09/02 [facility] Out[facility] Encounter [id number] [facility] OFFICE O/P EST LOW 20 MIN [id number] Diagnos is: ICD-10- CM M17.0 Bilater al primary osteoar thritis of knee Meron THORNTON 09/23 [facility] [facility] Encounter [id number] 10/09 [facility] OFFICE O/P EST MOD 30 MIN [id number] Diagnos is: ICD-10- CM G47.33 Obstruc tive sleep apnea (adult) (pediat minerva) CELESET AGUERO RAMIRO 10/09 [facility] Outpatient Encounter [id number] 10/14 [facility] NQHP OL DIG ASSMT&MGMT 21+ [id number] Diagnos is: ICD-10- CM Z12.2 Encntr screen for maligna nt neoplas m of respira tory organs MASON GLASGOW 10/15 [facility] O/P EST LOW 20 MIN [id number] 1BY. 03 Diagnos is: ICD-10- CM L60.3 Nail dystrop hy LORENA SHELLEY ES F 11/05 [facility] Outpatient Encounter [id number] 11/05 [facility] PSYCH DIAGNOSTIC EVALUATION [id number] Diagnos is: ICD-10- CM F51.01 Primary insomni a BOWEN RODRÍGUEZ 11/09 [facility] Outpatient Encounter [id number] BOWEN RODRÍGUEZ 11/09 [facility] Outpatient Encounter [id number] 11/10 [facility] NQHP OL DIG ASSMT&MGMT 11-20 [id number] Diagnos is: ICD-10- CM Z12.2 Encntr screen for maligna nt neoplas m of respira tory organs NELSON RADHA L 11/10 [facility] Encounter [id number] 11/16 [facility] [place] PSY[place] W PT 45 MINUTES [id number] Diagnos is: ICD-10- CM F51.01 Primary insomni a BOWEN RODRÍGUEZ 11/16 [place] [facility] Out[facility] Encounter [id number] 11/16 [facility] Encounter [id number] BOWEN RODRÍGUEZ 11/16 [facility] [place] PSY[place] W PT 45 MINUTES [id number] Diagnos is: ICD-10- CM F51.01 Primary insomni a BOWEN RODRÍGUEZ 11/23 [place] [facility] Out[facility] Encounter [id number] 11/23 [facility] Encounter [id number] 1. BOWEN RODRÍGUEZ 11/23 [facility] Out[facility] Encounter [id number] 11/23 [facility] Out[facility] Encounter [id number] 11/23 [facility] Out[facility] Encounter [id number] [facility] Encounter [id number] 11/27 [facility] [place] PSY[place] W PT 45 MINUTES [id number] Diagnos is: ICD-10- CM F51.01 Primary insomni a BOWEN RODRÍGUEZ 11/30 [place] [facility] Out[facility] Encounter [id number] BOWEN RODRÍGUEZ 11/30 [facility] SYNCH AUDIO-ONLY NEW LOW 30 [id number] Diagnos is: ICD-10- CM G47.33 Obstruc tive sleep apnea (adult) (pediat minerva) BALTAZAR SETHI 11/30 [facility] LD COLLJ & INTERPJ DATA EA 30 D [id number] Diagnos is: ICD-10- CM G47.33 Obstruc tive sleep apnea (adult) (pediat minerva) CAMRYN KEENAN 11/30 [place] W PT 60 MINUTES [id number] Diagnos is: ICD-10- CM F51.01 Primary insomni a BOWEN RODRÍGUEZ 12/07 [place] [facility] Out[facility] Encounter [id number] BOWEN RODRÍGUEZ 12/07 [facility] Encounter [id number] 12/14 [facility] Encounter [id number] 12/25 [facility] Encounter [id number] 01/07 [facility] Encounter [id number] 01/08 [facility] Out[facility] Encounter [id number] 01/13 [facility] Encounter [id number] 01/13 [facility] Encounter [id number] [facility] Encounter [id number] 01/19 [facility] Encounter [id number] 01/20 [facility] NQHP OL DIG ASSMT&MGMT 5-10 [id number] Diagnos is: ICD-10- CM I1A.0 Resista nt hyperte nsion SOVEROW,CH RISTY A 01/21 [facility] Encounter [id number] 01/22 [facility] Encounter [id number] 01/25 [facility] Encounter [id number] 01/26 [facility] OFFICE O/P EST MOD 30 MIN [id number] Diagnos is: ICD-10- CM N40.0 Benign prostat ic hyperpl eder without lower urinry tract symp CHRISTOPHER,SA RA 01/26 [facility] Out[facility] Encounter [id number] 01/26 [facility] Out[facility] Encounter [id number] 02/02 [facility] Out[facility] Encounter [id number] 02/02 [facility] Out[facility] Encounter [id number] [facility] O/P EST MOD 30 MIN [id number] 1BY. 97 Diagnos is: ICD-10- CM K92.2 Gastroi ntestin al hemorrh age, unspeci fied CELESTE AGUERO 02/19 [place] [facility] Out[facility] Encounter [id number] CELESTE AGUERO 02/19 [facility] Out[facility] Encounter [id number] 02/23 [facility] OFFICE O/P EST MOD 30 MIN [id number] Diagnos is: ICD-10- CM M17.12 Unilate ral primary osteoar thritis , left knee Meron THORNTON 02/23 [facility] Out[facility] Encounter [id number] 02/23 [facility] Out[facility] Encounter [id number] 02/25 [facility] [place] OFF[place] O/P EST LOW 20 MIN [id number] Diagnos is: ICD-10- CM L60.3 Nail dystrop hy LORENA SHELLEY F 03/03 [place] [facility] Out[facility] Encounter [id number] [facility] Outpatient Encounter [id number] [facility] [place] OFF/OP EST MAY X REQ PHY/QHP [id number] Diagnos is: ICD-10- CM 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 MARCOS LYN 03/10 [facility] [place] GROUP PSYCHOTHER APY [id number] Diagnos is: ICD-10- CM F10.21 Alcohol depende nce, in remissi on BRENNEN DEL VALLE E 03/10 [facility] [place] OFF/OP EST MAY X REQ PHY/QHP [id number] Diagnos is: ICD-10- CM R21 Rash and other nonspec ific skin eruptio n HARPAL,SIDRA IC K 03/17 [facility] [place] OFF[place] O/P EST MOD 30 MIN [id number] [id number] Diagnos is: ICD-10- CM B35.4 Tinea corpori s ELYSE THAKKAR 03/17 [facility] Out[facility] Encounter [id number] 03/17 [facility] PSYCH DIAGNOSTIC EVALUATION [id number] Diagnos is: ICD-10- CM F11.20 Opioid depende nce, uncompl icated LOVELY CHOUDHURY 03/22 [facility] Out[facility] Encounter [id number] LOVELY CHOUDHURY 03/22 [facility] OFFICE O/P EST LOW 20 MIN [id number] Diagnos is: ICD-10- CM M17.0 Bilater al primary osteoar thritis of knee Meron THORNTON 03/22 [facility] Out[facility] Encounter [id number] 03/25 [facility] EDU&TRN PT SELF-MGMT NQHP 1 [id number] Diagnos is: ICD-10- CM G47.33 Obstruc tive sleep apnea (adult) (pediat minerva) Carroll SMITH 03/30 [facility] PSYTX W PT 30 MINUTES [id number] Diagnos is: ICD-10- CM F11.20 Opioid depende nce, uncompl icated JAD HALE 03/31 [facility] Out[facility] Encounter [id number] 04/07 [facility] Outpatient Encounter [id number] 04/19 [facility] Social History Combined list of available smoking, tobacco, and other social history from Department of Defense and Veterans Affairs facilities. Social History Type Response Date Comment Sourc e Tobacco smoking status NHIS VA-TOBACCO USE FORMER CIGARETTES 01/26/2025 [facility] History of tobacco use IN-TOBACCO NEVER USED OTHER TYPE 01/26[facility]2025 [facility] History of tobacco use IN-TOBACCO QUIT < 1 YEAR 11/26/2023 [place] History of tobacco use IN-TOBACCO DOESNT USE WI 30 MIN WAKEUP 12/04/2022 [place] History of tobacco use VA-TOBACCO USER EVERY DAY 09/20/2021 [place] History of tobacco use IN-TOBACCO USER EVERY DAY 10/06/2020 [place] History of tobacco use VA-TOBACCO USER SOME DAYS 11/17/2018 [place] History of tobacco use CURRENT SMOKER 11/29/2017 1/2 ppd [place] Plan of Care List of future care activities from Department of Veterans Affairs facilities. Additional future care activities may be listed in the Assessment and Plan section. Date/Time Care Activity Care Activity Detail Facili ty 04/28/2025 AMBULATORY - PSYCHIATRY AMBULATORY - PSYC HIATRY [facility] Advance Directives List of completed, amended, or rescinded Advance Directives on record at Department of Veterans Affairs facilities. An actual copy of the Directive is not included. Date Advance Directive Provider Source 01/10/2021 ADVANCE DIRECTIVE DENNISE BRO
--- NOTE | 2025-04-20 13:27 | MHC.OFFVIS ---
Vital Signs 04/20/25 13:39 Weight 244 lb BP 114/73 Blood Pressure Location Rt brachial Position Sitting Pulse 97 Intake Visit Reasons: s/p SBO Intake Note: Patient here for follow up small bowel obstruction, S/P cholecystectomy. Patient c/o: [facility] thinks abdomen incision looks infected. Patient c/o pain at incisions. Reports normal BM. Denies constipation, diarrhea. Director Of Industrial Relations Required: No Accompanied by: daughter Regi Allergies No Known Allergies Allergy (Verified 04/20/25 13:39) Medication List - Last Reconciled 04/20/25 by Carlos Navas MD amlodipine 10 mg See Protocol PO DAILY brinzolamide-brimonidine 1-0.2 % (Simbrinza) 1 drp ophthalmic (eye) BID ferrous gluconate 324 mg PO DAILY finasteride 5 mg PO DAILY 90 days hydroxyzine HCl 25 mg PO BEDTIME PRN ibuprofen 600 mg PO Q6H PRN lisinopril 30 mg PO DAILY metoprolol succinate ER 50 mg See Protocol PO DAILY omeprazole 40 mg PO DAILY@0630 oxycodone-acetaminophen 5-325 mg 1 tab PO Q6H PRN polyethylene glycol 3350 (Miralax) 17 grams PO DAILY tadalafil 5 mg PO DAILY tamsulosin 0.4 mg PO BEDTIME HPI HPI s/p SBO: Details: 70-year-old male here for follow-up after open cholecystectomy. He was actually initially admitted because of symptoms of small-bowel obstruction on 04/02/2025. He had a CAT scan showing dilated small bowel loops and what appeared to be a transition zone. He had an NG tube placed because of vomiting. He eventually improved and was already on some oral intake. However, on his 3rd hospital day, he started to have right upper quadrant pain. A follow up CAT scan suggested inflammatory changes in the right upper quadrant consistent with the acute cholecystitis versus inflammation in the hepatic flexure.. He had a HIDA scan as well showing a nonvisualizing gallbladder consistent with acute cholecystitis. He had initially refused surgery but because of her persistent pain, he eventually agreed. He underwent open cholecystectomy on April 07, 2025. He tolerated procedure well and he was eventually discharged on April 12. He has good oral intake at home although he says he does not have good appetite yet. Denies any fever.. He has good pain control and this seems to be doing well. [facility] Medical History Right upper quadrant pain Partial small bowel obstruction BPH (benign prostatic hyperplasia) Hypertension Upper GI bleed SCHULTZ (nonalcoholic steatohepatitis) Erectile dysfunction Chronic hepatitis C virus genotype 1a infection Surgical History History of esophagogastroduodenoscopy (EGD) History of pancreatectomy Hx of splenectomy Social History Household Members: Family Housing: House Are you a primary healthcare translator to a significant other at home: No Do you presently have visiting nurse or other home services: No Comment: bilateral wrist restraints for airway safety Patient Tobacco Use Status: Former Tobacco user service: Yes Review of Systems Const Denies chills and Denies fever(s) Card Denies chest pain and Denies dyspnea on exertion Resp Denies cough and Denies dyspnea on exertion GI Denies abdominal pain and Denies vomiting Physical Exam Vital Signs: Last Vital Signs Pulse 97 04/20/25 13:39 BP 114/73 04/20/25 13:39 Const General: comfortable and no acute distress Eyes Other: Anicteric sclerae Resp Effort & Inspection: normal respiratory effort Cardio Rate: regular rate GI Other: Right upper quadrant incision clean, well healed except for a small area that is open medial aspect, not infected umbilical incision is also well healed ;all skin elieser are in place Palpation (GI): Soft to palpation Assessment & Plan Assessment & Plan (1) S/P cholecystectomy: Code(s): Z90.49 - Acquired absence of other specified parts of digestive tract Category: Surgical Plan: He is doing well postoperatively. I removed all his skin elieser. His incisions are well healed. He has good oral intake and has good GI functions I advised him to avoid lifting anything more than 20 lb for at least 4 more weeks. One area of the incision in the medial aspect is open but does not appear infected. I will see him for another wound check in 3 weeks. He also has not been showing symptoms of recurrent small-bowel obstruction. His path report showed acute hemorrhagic and gangrenous cholecystitis. Coding Level of Care Code Global (54259) Diagnoses S/P cholecystectomy Z90.49
[2025-04-20 13:39] VITALS: BP 114/73; PULSE 97
--- OUTSIDE RECORDS SUMMARY | 2025-04-20 14:23 | XMS_ITS | Encounter Summary ---
Author Organization [employer] Address [address] [facility] 7 h Floor [place] [id number] Care Team Providers Care Entry Analyst Name Role Phone Unavailable Primary Care Provider Unavailabl e Encounter Details Date Type Department Care Team (Latest Contact Info) Description 11/24/2020 Abstract [facility] Dental, Provider, DDS Social History Tobacco Use Types Packs/Day Years [...] Care Team (Late st Contact Info) Description 05/05/2025 9:00 AM EDT Office Visit [facility] [address] [place] [address] Jessica Haywood [address] [place] [address] documented as of this encounter Visit Diagnoses Not on filedocumented in this encounter
--- OUTSIDE RECORDS SUMMARY | 2025-04-20 14:23 | XMS_ITS | Clinical Summary ---
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 09/30/2023 Active Active Problems Problem Noted Date Diagnosed Date History of hepatitis C 11/04/2024 Overview (11/04/2024): Nov 29, 2017 Entered By: ANDRÉS KUMAR Comment: finished Harvoni tx 08/2017. SVR Dec 05, 2018 Entered By: ZULY STUART Comment: [facility] Provider: Rola Elkins Oct 18, 2020 Entered By: ZULY STUART Comment: 09/2020 - RNA undetected Oct 28, 2020 Entered By: ZULY STUART Comment: 09/2018 - U/S with elastography unlikely cirrhosis; CT abd 02/2019 shows simple hepatic cysts only May 11, 2023 Entered By: ZULY STUART Comment: mid pancreatic mass - for characterization/biopsy Glaucoma 11/04/2024 Type 2 diabetes mellitus with obesity (CMS/HCC) 11/04/2024 Social History Tobacco Use Types Packs/Day Years Used Date Smoking Tobacco: Never Assessed Sex and Gender Information Value Date Recorded Sex Assigned at Male 06/25/2022 10:14 AM EDT Legal Sex Male 10:14 AM EDT Gender Identity Male 06/25/2022 10:14 AM EDT Sexual Orientation Straight 06/25/2022 10 :14 AM EDT Last Filed Vital Signs Vital Sign Reading Time Taken Comments Blood Pressure 158/86 11/26/2024 1:38 PM EDT Pulse - - Temperature - - Respiratory Rate - - Oxygen Saturation - - Inhaled Oxygen Concentration - - Weight - - Height - - Body Mass Index - - Plan of Treatment Upcoming Encounters Date Type Department Care Team (Late st Contact Info) Description 05/05/2025 9:00 AM EDT Office Visit [facility] [address] [place] [address] Jessica Haywood [address] [place] [address] Health Maintenance Due Date Last Done Comments CT Colonography 1955 Colonoscopy 1955 Colorectal Cancer Screening 1955 Depression Screening 1955 Diabetes: Hemoglobin A1C 1955 FIT DNA/Cologuard 1955 FIT 1955 FOBT 1955 Lipid Panel 1955 SDOH Screening 1955 Sigmoidoscopy 1955 Diabetes: Foot Exam 1965 Meningococcal B Vaccine (1 of 5 - Increased Risk) 1965 Alcohol/Substance Use Screening 1967 Tobacco Screening 1967 Diabetes: Urine Protein Screening 1974 Hepatitis A Vaccines (1 of 2 - Risk 2-dose series) 1974 RSV Patients and Patients Aged 60 years or older (1 - Risk 60-74 years 1-dose series) 2015 Hepatitis B Vaccines (3 of 3 - Risk 3-dose series) 10/30/2019 09/04/2019, 09/05/2018 Meningococcal Vaccine (2 - Risk 2-dose series) 11/25/2023 09/30/2023 COVID-19 Vaccine ( - season) 2024 02/20/2022, 08/05/2021, 11/19/2020, Additional history exists Dental Oral Exam 04/05/2025 10/05/2024, , 02/10/2015 Dental Prophylaxis 04/05/2025 10/05/2024, 11/24/2020 Influenza Vaccine (#1) 2025 , 06/08/2020, 06/08/2020, Additional history exists Dental X-Ray: Bitewings 10/06/2025 10/05/19 25, 11/24/2020, 10/08/2019, Additional history exists Eye Exam 07/30/2026 07/30/2024, 01/24, 07/03/2023 Dental X-Ray: Full Mouth 10/06/2027 025, 10/08/2019, 02/10/2015 DTaP/Tdap/Td Vaccines (4 - Td or Tdap) 10/12/2032 10/12/2022, 10/22/2014, 11/24/2013 Zoster Vaccines Completed 01/16/2021, 09/04/2019 Pneumococcal Vaccine: 50+ Years Completed 08/13/2023, 08/31/2019 HIB Vaccines Completed 09/30/2023 HPV Vaccines Aged Out No longer eligi ble based on patient's age to complete this topic IPV Vaccines Aged Out No longer eligi ble based on patient's age to complete this topic RSV under 20 months Aged Out No longe r eligible based on patient's age to complete this topic Rotavirus Vaccines Aged Out No longer eligible based on patient's age to complete this topic Procedures Procedure Name Priority Date/Time Associated Diagnosis Comments PROPHYLAXIS - ADULT Routine 10/05/2024 1 :00 PM EST Dental calculus Dental plaque Tartar deposits on teeth INTRAORAL - COMPLETE SERIES OF RADIOGRAPHIC IMAGES Routine 10/05/2024 1:00 PM EST PERIODIC ORAL EVALUATION - ESTABLISHED PATIENT Routine 10/05/2024 1:00 PM EST Dental calculus Dental plaque Tartar deposits on teeth Encounter for dental examination Gingival recession, localized from Last 3 Months or Most Recently Relevant to Health Maintenance Insurance DENTAL - HSN FULL (MEDICAID)
--- OUTSIDE RECORDS SUMMARY | 2025-04-20 14:23 | XMS_ITS | Encounter Summary ---
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
== END 2025-04-20 13:48 | disposition home or self-care (01) ==
LOC: HO.HGS 13:27
PROVIDERS: PCP Nurse Practitioner Gerontology; Visit Provider Surgery
DX: Z90.49 Acquired absence of other specified parts of digestive tract (principal)
CPT/HCPCS: 99024

== ENCOUNTER → 2025-04-20 13:26 | Outpatient (BNVA) | payer MEDICAID, SELFPAY | PROVIDERS: PCP Nurse Practitioner Gerontology; Visit Provider Surgery | DX: Z90.49 Acquired absence of other specified parts of digestive tract (principal) | CPT/HCPCS: 99212 ==

== ENCOUNTER 2025-04-23 10:18 | Outpatient (REF) | payer MEDICARE, MEDICAID, SELFPAY ==
--- OUTSIDE RECORDS SUMMARY | 2025-04-23 05:50 | XMS_ITS | Continuity of Care Document ---
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 Name Role Phone [facility] Unavailable Unavailable Problems Combined list of problems [...] FADUMO STUART Comment: stopped smoking Sep 2020 [facility] Complaining of erectile dysfunction Active Condition [facility] Depressive disorder Active Condition Mar 22, 2025 Entered By: ALICIA CHOUDHURY Comment: Major Depressive Disorder, Mild [facility] Dyspnea on exertion Active Condition January 15, 2019 Entered By: FADUMO STUART Comment: PFT: 12/2018 mild ventilatory defect; no rxn to bronchodilatorJul 2018 Entered By: FADUMO STUART Comment: partially ascribed to restrictive effects of obesity [facility] Glaucoma Active Condition [facility] Herpes Simplex Type I Active Condition [facility] History of hepatitis C Active Condition Nov 29, 2017 Entered By: ANDRÉS KUMAR Comment: finished Harvoni tx 08/2017. SVRApr 2018 Entered By: FADUMO STUART Comment: [facility] [place]astro[place]ology services Provider: Rola Ramirez 2020 Entered [...] [facility] Neuroendocrine tumor Active Condition [place] Obstructive sleep apnea of adult Active Condition [facility] Obstructive sleep apnea syndrome Active Condition [...] remission [facility] Rash ([facility] [id number]) Active Condition [facility] Vitamin D Deficiency ([facility] [id number]) Active Condition Oct 18, 2020 Entered By: [...] and other nonspecific skin eruption Active Diagnosis [facility] Diagnosis: ICD-10-CM F10.21 Alcohol dependence, in remission Active Diagnosis [place] Diagnosis: ICD-10-CM Z71.89 Other specified counseling Active Diagnosis [place] Diagnosis: ICD-10-CM L60.3 Nail dystrophy Active Diagnosis [facility] Diagnosis: ICD-10-CM M17.12 Unilateral primary osteoarthritis, left knee Active Diagnosis [facility] Diagnosis: ICD-10-CM K92.2 Gastrointestinal hemorrhage, unspecified Active Diagnosis [place] Diagnosis: ICD-10-CM N40.0 Benign prostatic hyperplasia without lower urinry tract symp Active Diagnosis [facility] Diagnosis: ICD-10-CM I1A.0 Resistant hypertension Active Diagnosis [facility] Diagnosis: ICD-10-CM F51.01 Primary insomnia Active Diagnosis [facility] Diagnosis: ICD-10-CM Z12.2 Encntr screen for malignant neoplasm of respiratory organs Active Diagnosis [facility] Diagnosis: ICD-10-CM M47.896 Other spondylosis, lumbar region Active Diagnosis [facility] Diagnosis: ICD-10-CM R09.81 Nasal congestion [facility] Diagnosis: ICD-10-CM M54.50 Low back pain, unspecified Active Diagnosis [place] Diagnosis: ICD-10-CM Z46.0 Encounter for fit/adjst of spectacles and contact lenses Active Diagnosis [facility] Diagnosis: ICD-10-CM H40.1133 Primary open-angle glaucoma, bilateral, severe stage Active Diagnosis [facility] Diagnosis: ICD-10-CM F32.A Depression, unspecified Active Diagnosis [place] Diagnosis: ICD-10-CM Z08 Encntr for follow-up exam after trtmt for malignant neoplasm Active Diagnosis [facility] Diagnosis: ICD-10-CM M47.897 Other spondylosis, lumbosacral region Active Diagnosis [facility] Diagnosis: ICD-10-CM M46.1 Sacroiliitis, not elsewhere classified Active Diagnosis [facility] Diagnosis: ICD-10-CM G40.89 Other seizures Active Diagnosis [place] Diagnosis: ICD-10-CM Z13.6 Encounter for screening for cardiovascular disorders Active Diagnosis [facility] Diagnosis: ICD-10-CM Z09 Encntr for f/u exam aft trtmt for cond oth than malig neoplm Active Diagnosis [place] Diagnosis: ICD-10-CM M47.816 Spondylosis w/o myelopathy or radiculopathy, lumbar region [facility] Diagnosis: ICD-10-CM F43.21 Adjustment disorder [...] FOR WIDE-ANG LE GLAUCOMA OPHTHA LMIC 02/03/2025 [id number] MERHAR,NO AH B 2023 24 [facility] CAPSAICIN 0.1% CREAM,TOP APPLY A SMALL AMOUNT TOPICALL Y TWICE DAILY NEEDED FOR LOCALIZE D PAIN APPLIED TO LEFT KNEE TWICE DAILY TOPICA Corky ACTIVE 09/24/2025 [id number] 5 VIOLETTA THORNTON 2024 120 [facility] CYANOCOBALA MIN TAB TAKE BY MOUTH ORAL ACTIVE DUONG CLARK 2020 [place] DOCUSATE NA 50MG/SENNOS IDES 8.6MG TAB TAKE 2 TABLETS BY MOUTH AT BEDTIME FOR CONSTIPA TION ORAL 05/12/2024 [id number] FADUMO STUART 2023 100 [place] FERROUS GLUCONATE 324MG TAB TAKE ONE TABLET BY MOUTH QOD ORAL ACTIVE RA BIANCA AGUERO 2024 [place] FINASTERIDE 5MG TAB TAKE ONE TABLET BY MOUTH ONCE DAILY FOR ENLARGED PROSTATE ORAL ACTIVE 01/22/2026 [id number] 5 DECEMBERALEXA P 2024 90 [facility] HYALURONATE NA (DUROLANE) 20MG/ML INJ,SYRINGE ,3ML INJECT 60MG INTRA-AR TICULAR ONE TIME RIGHT KNEE INTRA- ARTICU LAR ACTIVE 02/20/2026 [id number] 5 VIOLETTA THORNTON 2024 1 [facility] HYALURONATE NA (DUROLANE) 20MG/ML INJ,SYRINGE ,3ML INJECT 60MG INTRA-AR TICULAR ONE TIME RIGHT KNEE INTRA- ARTICU LAR DISCONT INUED 02/24/2025 [id number] 5 VIOLETTA THORNTON 2023 1 [facility] HYDROPHILIC (EQV AQUAPHOR) OINT,TOP APPLY LIBERAL AMOUNT TOPICALL Y TWICE DAILY NEEDED FOR DRY SKIN TOPICA L ACTIVE 10/10/2025 [id number] 5 RA BIANCA AGUERO 2024 454 [place] HYDROXYZINE HCL 10MG TAB TAKE ONE TABLET BY MOUTH AT BEDTIME NEEDED FOR INSOMNIA ORAL DISCONT INUED (EDIT) 10/10/2025 [id number] 5 RA BIANCA AGUERO 2024 30 [place] HYDROXYZINE HCL 25MG TAB TAKE ONE TABLET BY MOUTH AT BEDTIME NEEDED FOR INSOMNIA - NOTE DOSE ORAL ACTIVE 01/22/2026 [id number] 5 DECEMBERALEXA P 2024 30 [facility] HYDROXYZINE HCL 25MG TAB TAKE ONE TABLET BY MOUTH AT BEDTIME NEEDED FOR INSOMNIA - NOTE DOSE ORAL DISCONT INUED 10/15/2025 [id number] 5 RA BIANCA AGUERO 2024 30 [place] HYDROXYZINE PAMOATE 25MG CAP TAKE ONE CAPSULE BY MOUTH BEDTIME NEEDED FOR SLEEP ### ORAL ACTIVE 05/21/2025 [id number] 5 BRYANNA COUCH 2024 30 [place] LATANOPROST 0.005% SOLN,OPH INSTILL 1 DROP INTO EACH EYE AT BEDTIME OPHTHA LMIC 05/13/2024 [id number] 4 NELLIANAHY VIDHYA 2022 7.5 [place] LISINOPRIL 10MG TAB TAKE ONE TABLET BY MOUTH ONCE DAILY TO CONTROL BLOOD PRESSURE ORAL DISCONT INUED (EDIT) 01/22/2026 [id number] 5 DECEMBERALEXA P 2024 90 [facility] LISINOPRIL 10MG TAB TAKE ONE TABLET BY MOUTH ONCE DAILY TO CONTROL BLOOD PRESSURE ORAL DISCONT INUED 11/20/2025 [id number] 5 RA BIANCA AGUERO 2024 90 [place] LISINOPRIL 10MG TAB TAKE ONE TABLET BY MOUTH ONCE DAILY TO CONTROL BLOOD PRESSURE ORAL DISCONT INUED 11/14/2024 [id number] 4 FADUMO STUART 2023 90 [place] LISINOPRIL 20MG TAB TAKE ONE TABLET BY MOUTH ONCE DAILY TO CONTROL BLOOD PRESSURE ORAL ACTIVE 01/27/2026 [id number] 5 Yue CHRISTOPHER 2024 30 [facility] METOPROLOL SUCCINATE 50MG TAB,SA TAKE ONE TABLET BY MOUTH ONCE DAILY FOR BLOOD PRESSURE /HEART ORAL ACTIVE 01/22/2026 [id number] 5 ALEXA AGUILAR P 2024 90 [facility] NALOXONE HCL 4MG/SPRAY SOLN,SPRAY, NASAL INSTILL 1 SPRAY IN THE NOSE ONE TIME FOR OPIOID OVERDOSE CALL 911 WITH ADMINIST RATION. REPEAT WITH SECOND DEVICE IF SYMPTOMS RETURN NASAL ACTIVE 03/23/2026 [id number] 5 BRYANNA COUCH 2024 2 [place] OXYCODONE HCL 5MG TAB TAKE ONE TABLET BY MOUTH TWICE DAILY NEEDED FOR PAIN ORAL 04/22/2024 [id number] 4 LEAH STUARTARLPH O 2023 30 [place] TADALAFIL 20MG TAB TAKE ONE TABLET BY MOUTH ONCE DAILY FOR ERECTILE DYSFUNCT ION ORAL ACTIVE 01/22/2026 [id number] 5 DECEMBER,ALEXA AVILESY P 2024 18 [facility] TADALAFIL 20MG TAB TAKE ONE TABLET BY MOUTH ONCE DAILY ORAL DISCONT INUED 11/25/2025 [id number] 5 RA BIANCA AGUERO 2024 18 [place] TADALAFIL 20MG TAB TAKE ONE TABLET BY MOUTH ONCE DAILY ORAL DISCONT INUED 11/08/2024 [id number] 5 NARCISOFADUMO O 2023 18 [place] TAMSULOSIN HCL 0.4MG CAP TAKE TWO CAPSULES BY MOUTH ONCE DAILY FOR ENLARGED PROSTATE (TAKE 30 MINUTES AFTER THE SAME MEALTIME EACH DAY) ORAL DISCONT INUED BY JASON Fall 08/01/2025 [id number] 4 RA BIANCA AGUERO 2023 60 [place] TAMSULOSIN HCL 0.4MG CAP TAKE TWO CAPSULES BY MOUTH ONCE DAILY FOR ENLARGED PROSTATE (TAKE 30 MINUTES AFTER THE SAME MEALTIME EACH DAY) ORAL DISCONT INUED 01/30/2025 [id number] 4 Meron RAY 2023 60 [place] TERBINAFINE HCL 1% CREAM,TOP APPLY A THIN LAYER TOPICALL Y TWICE DAILY FUNGAL INFECTIO N TOPICA L ACTIVE 03/18/2026 [id number] 5 BRANDY THAKKAR 2024 60 [place] Immunizations Combined list of available immunizations from the Department of Defense and Veterans Affairs facilities. 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 Comments Source INFLUENZA, HIGH-DOSE, QUADRIVALENT 2022 GILDARDO ROWAN LEFT DELTO ID [id number] 197 complet ed [facility] [place] [facility] [place] PNEUMOCOCCAL CONJUGATE PCV20, POLYSACCHARID E [id number] CONJUGATE, ADJUVANT, PF 2022 GILDARDO ROWAN RIGHT DELTO ID [id number] 216 complet ed [facility] [place] [facility] [place] COVID-19 (MODERNA), MRNA, LNP-S, PF, 100 MCG/0.5ML DOSE OR 50 MCG/0.25ML DOSE 2021 207 complet ed Booster for Series, MOD; [id number]; 2 [place] COVID-19 (MODERNA), MRNA, LNP-S, PF, 100 MCG OR 50 MCG DOSE 3 2020 207 complet ed MOD; [id number]; 2 [place] ZOSTER RECOMBINANT 2 2020 187 complet ed [place] COVID-19 (MODERNA), MRNA, LNP-S, PF, 100 MCG/0.5 ML DOSE 2 2020 207 complet ed MOD; [id number]; 1 [place] COVID-19 (MODERNA), MRNA, LNP-S, PF, 100 MCG/0.5 ML DOSE 1 2020 207 complet ed MOD; [id number]; 1 [place] INFLUENZA, INJECTABLE, QUADRIVALENT, PRESERVATIVE FREE 2019 150 complet ed [place] HEP B, ADULT 2 2019 43 complet ed [place] ZOSTER RECOMBINANT 1 2019 187 complet ed [place] PNEUMOCOCCAL POLYSACCHARID E PPV23 2019 33 complet ed [place] HEP B, ADULT 2018 NONE 43 complet ed Booster for Series, [place] INFLUENZA, SEASONAL, INJECTABLE 2016 141 complet ed [facility] TDAP 2013 115 complet ed [facility] Results Combined [...] Feb 19, 2025 03:06 PM Reporting Lab: [facility] [place] [facility] [address] [facility] [address] Performing Lab: [facility] [place] [facility] [address] [facility] [address] [place] IRON & TIBC PANEL IRON BINDING CAPACITY [MASS/VOLU ME] IN SERUM OR PLASMA 367 ug/dL 204 - 475 02/22 Specimen Type: SERUM No comment entered. Ordering Provider: TRAVIS AGUERO Report Released Date/Time: Feb 19, 2025 03:06 PM Reporting Lab: [facility] [place] [facility] [address] [facility] [address] Performing Lab: [facility] [place] [facility] [address] [facility] [address] [place] IRON & TIBC PANEL IRON [MASS/VOLU ME] IN SERUM OR PLASMA 46 ug/dL 65 - 175 02/22 L Specimen Type: SERUM No comment entered. Ordering Provider: TRAVIS AGUERO Report Released Date/Time: Feb 19, 2025 03:06 PM Reporting Lab: [facility] [place] [facility] [address] [facility] [address] Performing Lab: [facility] [place] [facility] [address] [facility] [address] [place] IRON & TIBC PANEL IRON/IRON BINDING CAPACITY.T OTAL [MASS RATIO] IN SERUM OR PLASMA 12.5 15 - 45 02/22 L Specimen Type: SERUM No comment entered. Ordering Provider: TRAVIS AGUERO Report Released Date/Time: Feb 19, 2025 03:06 PM Reporting Lab: [facility] [place] [facility] [address] [facility] [address] Performing Lab: [facility] [place] [facility] [address] [facility] [address] [place] IRON & TIBC PANEL TRANSFERRI N [MASS/VOLU ME] IN SERUM OR PLASMA 278 mg/dL 180 - 382 02/22 Specimen Type: SERUM No comment entered. Ordering Provider: TRAVIS AGUERO Report Released Date/Time: Feb 19, 2025 03:06 PM Reporting Lab: [facility] [address] [facility] [address] Performing Lab: [facility] [address] [facility] [address] [place] CBC AND DIFF (AUTO) LEUKOCYTES [#/VOLUME] IN BLOOD BY AUTOMATED COUNT 5.97 10*3/uL 4.50 - 11.00 02/22 Specimen Type: BLOOD No comment entered. Ordering Provider: TRAVIS AGUERO Report Released Date/Time: Feb 19, 2025 03:06 PM Reporting Lab: [facility] [address] [address] Performing Lab: [facility]N [address] [address] [place] CBC AND DIFF (AUTO) ERYTHROCYT ES [#/VOLUME] IN BLOOD BY AUTOMATED COUNT 4.01 10*6/uL 4.23 - 5.66 02/22 L Specimen Type: BLOOD No comment entered. Ordering Provider: TRAVIS AGUERO Report Released Date/Time: Feb 19, 2025 03:06 PM Reporting Lab: [facility] [address] [address] Performing Lab: [facility] [address] [address] [place] CBC AND DIFF (AUTO) HEMOGLOBIN [MASS/VOLU ME] IN BLOOD 11.5 g/dL 12.8 - 17 02/22 L Specimen Type: BLOOD No comment entered. Ordering Provider: TRAVIS AGUERO Report Released Date/Time: Feb 19, 2025 03:06 PM Reporting Lab: [facility] [address] [address] Performing Lab: [facility] [address] [address] [place] CBC AND DIFF (AUTO) HEMATOCRIT [VOLUME FRACTION] OF BLOOD BY AUTOMATED COUNT 35.1 39.2 - 50.4 02/22 L Specimen Type: BLOOD No comment entered. Ordering Provider: TRAVIS AGUERO Report Released Date/Time: Feb 19, 2025 03:06 PM Reporting Lab: [facility]TR[facility] [address] [facility] [address] Performing Lab: [facility] [address] [facility] [address] [place] CBC AND DIFF (AUTO) MCV [ENTITIC VOLUME] BY AUTOMATED COUNT 87.5 fL 82 - 99 02/22 Specimen Type: BLOOD No comment entered. Ordering Provider: TRAVIS AGUERO Report Released Date/Time: Feb 19, 2025 03:06 PM Reporting Lab: [facility] [address] [address] Performing Lab: [facility] [address] [address] [place] CBC AND DIFF (AUTO) MCHC [MASS/VOLU ME] BY AUTOMATED COUNT 32.8 g/dL 30.8 - 35.1 02/22 Specimen Type: BLOOD No comment entered. Ordering Provider: TRAVIS AGUERO Report Released Date/Time: Feb 19, 2025 03:06 PM Reporting Lab: [facility] [address] [address] Performing Lab: [facility]N [facility] [address] [place] CBC AND DIFF (AUTO) PLATELETS [#/VOLUME] IN BLOOD BY AUTOMATED COUNT 355 10*3/uL 140 - 360 02/22 Specimen Type: BLOOD No comment entered. Ordering Provider: TRAVIS AGUERO Report Released Date/Time: Feb 19, 2025 03:06 PM Reporting Lab: [facility]ITALRBAYPO[facility] HOSPITALTRN [address] [address] Performing Lab: [facility]ITALRBAYPOINTE HOSPITALTRN [facility] [address] [place] CBC AND DIFF (AUTO) PLATELET MEAN VOLUME [ENTITIC VOLUME] IN BLOOD BY AUTOMATED COUNT 9.3 fL 9.2 - 12.4 02/22 Specimen Type: BLOOD No comment entered. Ordering Provider: TRAVIS AGUERO Report Released Date/Time: Feb 19, 2025 03:06 PM Reporting Lab: [facility] [address] [facility] [address] Performing Lab: [facility] [address] [address] [place] CBC AND DIFF (AUTO) ERYTHROCYT E DISTRIBUTI ON WIDTH [RATIO] BY AUTOMATED COUNT 14.1 12.0 - 16.0 02/22 Specimen Type: BLOOD No comment entered. Ordering Provider: TRAVIS AGUERO Report Released Date/Time: Feb 19, 2025 03:06 PM Reporting Lab: [address] [address] Performing Lab: [facility] [address] [address] [place] CBC AND DIFF (AUTO) MONOCYTES [#/VOLUME] IN BLOOD BY AUTOMATED COUNT 0.74 10*3/uL 0.30 - 1.10 02/22 Specimen Type: BLOOD No comment entered. Ordering Provider: TRAVIS AGUERO Report Released Date/Time: Feb 19, 2025 03:06 PM Reporting Lab: [facility] [address] [address] Performing Lab: [facility] [address] [place] CBC AND DIFF (AUTO) MCH [ENTITIC MASS] BY AUTOMATED COUNT 28.7 pg 26.2 - 32.6 02/22 Specimen Type: BLOOD No comment entered. Ordering Provider: TRAVIS AGUERO Report Released Date/Time: Feb 19, 2025 03:06 PM Reporting Lab: [facility] [address] [address] Performing Lab: [facility] [address] [address] [place] CBC AND DIFF (AUTO) NEUTROPHIL S/100 LEUKOCYTES IN BLOOD BY AUTOMATED COUNT 47.7 43.7 - 75.8 02/22 Specimen Type: BLOOD No comment entered. Ordering Provider: TRAVIS AGUERO Report Released Date/Time: Feb 19, 2025 03:06 PM Reporting Lab: [facility] [place] [address] [address] Performing Lab: [facility] [place] [address] [address] [place] CBC AND DIFF (AUTO) LYMPHOCYTE S/100 LEUKOCYTES IN BLOOD BY AUTOMATED COUNT 34.0 14.0 - 42.3 02/22 Specimen Type: BLOOD No comment entered. Ordering Provider: TRAVIS AGUERO Report Released Date/Time: Feb 19, 2025 03:06 PM Reporting Lab: [facility] [address] [address] Performing Lab: [facility] [place] [address] [address] [place] CBC AND DIFF (AUTO) MONOCYTES/ 100 LEUKOCYTES IN BLOOD BY AUTOMATED COUNT 12.4 5.1 - 13.7 02/22 Specimen Type: BLOOD No comment entered. Ordering Provider: TRAVIS AGUERO Report Released Date/Time: Feb 19, 2025 03:06 PM Reporting Lab: [facility] [place] [address] [address] Performing Lab: [facility] [place] [address] [address] [place] CBC AND DIFF (AUTO) EOSINOPHIL S/100 LEUKOCYTES IN BLOOD BY AUTOMATED COUNT 4.7 0.4 - 6.8 02/22 Specimen Type: BLOOD No comment entered. Ordering Provider: TRAVIS AGUERO Report Released Date/Time: Feb 19, 2025 03:06 PM Reporting Lab: [facility] [address] [address] Performing Lab: [facility] [address] [place] CBC AND DIFF (AUTO) BASOPHILS/ 100 LEUKOCYTES IN BLOOD BY AUTOMATED COUNT 1.0 0.1 - 2.0 02/22 Specimen Type: BLOOD No comment entered. Ordering Provider: TRAVIS AGUERO Report Released Date/Time: Feb 19, 2025 03:06 PM Reporting Lab: [facility] [address] [address] Performing Lab: [facility] [address] [address] [place] CBC AND DIFF (AUTO) NEUTROPHIL S [#/VOLUME] IN BLOOD BY AUTOMATED COUNT 2.85 10*3/uL 2.20 - 7.60 02/22 Specimen Type: BLOOD No comment entered. Ordering Provider: TRAVIS AGUERO Report Released Date/Time: Feb 19, 2025 03:06 PM Reporting Lab: [facility] [address] [address] Performing Lab: [facility] [address] [address] [place] CBC AND DIFF (AUTO) LYMPHOCYTE S [#/VOLUME] IN BLOOD BY AUTOMATED COUNT 2.03 10*3/uL 1.00 - 3.20 02/22 Specimen Type: BLOOD No comment entered. Ordering Provider: TRAVIS AGUERO Report Released Date/Time: Feb 19, 2025 03:06 PM Reporting Lab: [facility] [address] [address] Performing Lab: [facility] [address] [address] [place] CBC AND DIFF (AUTO) EOSINOPHIL S [#/VOLUME] IN BLOOD BY AUTOMATED COUNT 0.28 10*3/uL 0.03 - 0.44 02/22 Specimen Type: BLOOD No comment entered. Ordering Provider: TRAVIS AGUERO Report Released Date/Time: Feb 19, 2025 03:06 PM Reporting Lab: [facility] [address] [address] Performing Lab: [facility] [address] [address] [place] CBC AND DIFF (AUTO) BASOPHILS [#/VOLUME] IN BLOOD BY AUTOMATED COUNT 0.06 10*3/uL 0.01 - 0.13 02/22 Specimen Type: BLOOD No comment entered. Ordering Provider: TRAVIS AGUERO Report Released Date/Time: Feb 19, 2025 03:06 PM Reporting Lab: [facility] [address] Performing Lab: [facility] TRN [address] [address] [place] CBC AND DIFF (AUTO) IMMATURE GRANULOCYT ES/100 LEUKOCYTES IN BLOOD BY AUTOMATED COUNT 0.2 0.0 - 0.7 02/22 Specimen Type: BLOOD No comment entered. Ordering Provider: TRAVIS AGUERO Report Released Date/Time: Feb 19, 2025 03:06 PM Reporting Lab: [facility] [address] Performing Lab: [facility] [address] [place] CBC AND DIFF (AUTO) IMMATURE GRANULOCYT ES [#/VOLUME] IN BLOOD BY AUTOMATED COUNT 0.01 10*3/uL 0.00 - 0.06 02/22 Specimen Type: BLOOD No comment entered. Ordering Provider: TRAVIS AGUERO Report Released Date/Time: Feb 19, 2025 03:06 PM Reporting Lab: [facility] [address] [address] Performing Lab: [facility]ITALRBAYPOINTE HOSPITALTRN [facility] [address] [place] CBC AND DIFF (AUTO) NUCLEATED ERYTHROCYT ES/100 LEUKOCYTES [RATIO] IN BLOOD BY AUTOMATED COUNT 0.0 0.0 - 0.0 02/22 Specimen Type: BLOOD No comment entered. Ordering Provider: TRAVIS AGUERO Report Released Date/Time: Feb 19, 2025 03:06 PM Reporting Lab: [address] [address] [facility] Lab: [facility] [address] [address] [facility] CBC AND DIFF (AUTO) NUCLEATED ERYTHROCYT ES [#/VOLUME] IN BLOOD BY AUTOMATED COUNT 0.00 10*3/uL 0.00 - 0.00 02/22 Specimen Type: BLOOD No comment entered. Ordering Provider: TRAVIS AGUERO Report Released Date/Time: Feb 19, 2025 03:06 PM Reporting Lab: [address] [address] Performing Lab: [address] [address] [facility] BASIC METABOLI C PANEL (fasting ) UREA NITROGEN [MASS/VOLU ME] IN SERUM OR PLASMA 16 mg/dL 8 - 26 02/22 Specimen Type: SERUM No comment entered. Ordering Provider: MARGARITO CHRISTOPHER Report Released Date/Time: Jan 26, 2025 01:53 PM Reporting Lab: [address] [address] Performing Lab: [facility] [address] [address] [facility] BASIC METABOLI C PANEL (fasting ) GLUCOSE [MASS/VOLU ME] IN SERUM OR PLASMA 103 mg/dL 65 - 100 02/22 H Specimen Type: SERUM No comment entered. Ordering Provider: MARGARITO CHRISTOPHER Report Released Date/Time: Jan 26, 2025 01:53 PM Reporting Lab: [address] [address] Performing Lab: [facility] [address] [address] [facility] BASIC METABOLI C PANEL (fasting ) SODIUM [MOLES/VOL UME] IN SERUM OR PLASMA 140 mmol/L 136 - 145 02/22 Specimen Type: SERUM No comment entered. Ordering Provider: MARGARITO CHRISTOPHER Report Released Date/Time: Jan 26, 2025 01:53 PM Reporting Lab: [facility] [address] [address] Performing Lab: [facility] [place] [facility] [address] [facility] [address] [facility] BASIC METABOLI C PANEL (fasting ) POTASSIUM [MOLES/VOL UME] IN SERUM OR PLASMA 4.1 mmol/L 3.5 - 5.1 02/22 Specimen Type: SERUM No comment entered. Ordering Provider: MARGARITO CHRISTOPHER Report Released Date/Time: Jan 26, 2025 01:53 PM Reporting Lab: [facility] [address] [address] Performing Lab: [facility] [place] [address] [address] [address] [facility] BASIC METABOLI C PANEL (fasting ) CHLORIDE [MOLES/VOL UME] IN SERUM OR PLASMA 110 mmol/L 98 - 107 02/22 H Specimen Type: SERUM No comment entered. Ordering Provider: MARGARITO CHRISTOPHER Report Released Date/Time: Jan 26, 2025 01:53 PM Reporting Lab: [facility] [place] [address] [address] Performing Lab: [facility] [address] [address] [facility] BASIC METABOLI C PANEL (fasting ) CARBON DIOXIDE, TOTAL [MOLES/VOL UME] IN SERUM OR PLASMA 23 meq/L 23 - 31 02/22 Specimen Type: SERUM No comment entered. Ordering Provider: MARGARITO CHRISTOPHER Report Released Date/Time: Jan 26, 2025 01:53 PM Reporting Lab: [facility] [place] [address] [address] Performing Lab: [facility] [place] [place] [address] [address] [facility] [place] [facility] BASIC METABOLI C PANEL (fasting ) CALCIUM [MASS/VOLU ME] IN SERUM OR PLASMA 8.8 mg/dL 8.8 - 10 02/22 Specimen Type: SERUM No comment entered. Ordering Provider: MARGARITO CHRISTOPHER Report Released Date/Time: Jan 26, 2025 01:53 PM [facility] [address] [address] [facility]: [facility] [address] [address] [facility] BASIC METABOLI C PANEL (fasting ) CREATININE [MASS/VOLU ME] IN SERUM OR PLASMA 0.81 mg/dL 0.72 - 1.25 02/22 Specimen Type: SERUM No comment entered. Ordering Provider: MARGARITO CHRISTOPHER Report Released Date/Time: Jan 26, 2025 01:53 PM Reporting Lab: [address] [address] Performing Lab: [address] [address] [facility] BASIC METABOLI C PANEL (fasting ) GLOMERULAR FILTRATION RATE/1.73 SQ M.PREDICTE D [VOLUME RATE/AREA] IN SERUM, PLASMA OR BLOOD BY CREATININE -BASED FORMULA (CKD-EPI 2020) >90mL/mi n 60 02/22 Specimen Type: SERUM No comment entered. Ordering Provider: MARGARITO CHRISTOPHER Report Released Date/Time: Jan 26, 2025 01:53 PM Reporting [facility]: [facility] [address] [address] [facility]forming Lab: [facility] [address] [address] [facility] CBC AND DIFF (AUTO) LEUKOCYTES [#/VOLUME] IN BLOOD BY AUTOMATED COUNT 7.74 10*3/uL 4.50 - 11.00 01/25 Specimen Type: BLOOD No comment entered. Ordering Provider: LIAM AGUILAR Report Released Date/Time: January 21, 2025 04:16 PM Reporting Lab: [address] [address] Performing Lab: [facility] [place] [facility] [address] [facility] [address] [facility]TR[facility] [place] [facility] CBC AND DIFF (AUTO) ERYTHROCYT ES [#/VOLUME] IN BLOOD BY AUTOMATED COUNT 3.56 10*6/uL 4.23 - 5.66 01/25 L Specimen Type: BLOOD No comment entered. Ordering Provider: LIAM AGUILAR Report Released Date/Time: January 21, 2025 04:16 PM Reporting Lab: [facility] [place] [facility] [address] [facility] [address] Performing Lab: [facility] [address] [facility] [address] [facility] CBC AND DIFF (AUTO) HEMOGLOBIN [MASS/VOLU ME] IN BLOOD 10.6 g/dL 12.8 - 17 01/25 L Specimen Type: BLOOD No comment entered. Ordering Provider: LIAM AGUILAR Report Released Date/Time: January 21, 2025 04:16 PM Reporting Lab: [facility] [place] [facility] [address] [facility] [address] Performing Lab: [facility]ITALRBAYPOINTE HOSPITALTRN [facility] [address] [facility] [address] [facility] CBC AND DIFF (AUTO) HEMATOCRIT [VOLUME FRACTION] OF BLOOD BY AUTOMATED COUNT 32.7 39.2 - 50.4 01/25 L Specimen Type: BLOOD No comment entered. Ordering Provider: LIAM AGUILAR Report Released Date/Time: January 21, 2025 04:16 PM Reporting Lab: [facility]TR[facility] [place] [facility] [address] [facility] [address] Performing Lab: [facility]ITALTR[facility] [place] [address] [address] [facility] [place] [facility] CBC AND DIFF (AUTO) MCV [ENTITIC VOLUME] BY AUTOMATED COUNT 91.9 fL 82 - 99 01/25 Specimen Type: BLOOD No comment entered. Ordering Provider: LIAM AGUILAR Report Released Date/Time: January 21, 2025 04:16 PM Reporting Lab: [facility] [place] [facility] [address] [facility] [address] Performing Lab: [facility] [place] [facility] [address] [facility] [address] [facility] [place] [facility] CBC AND DIFF (AUTO) MCHC [MASS/VOLU ME] BY AUTOMATED COUNT 32.4 g/dL 30.8 - 35.1 01/25 Specimen Type: BLOOD No comment entered. Ordering Provider: LIAM AGUILAR Report Released Date/Time: January 21, 2025 04:16 PM Reporting Lab: [facility] [place] [facility] [address] [facility] [address] Performing Lab: [facility] [place] [facility] [address] [facility] [address] [facility] [place] [facility] CBC AND DIFF (AUTO) PLATELETS [#/VOLUME] IN BLOOD BY AUTOMATED COUNT 606 10*3/uL 140 - 360 01/25 H Specimen Type: BLOOD No comment entered. Ordering Provider: LIAM AGUILAR Report Released Date/Time: January 21, 2025 04:16 PM Reporting Lab: [facility] [place] [facility] [address] [facility] [address] Performing Lab: [facility] [place] [facility] [address] [facility] [address] [facility] [place] [facility] CBC AND DIFF (AUTO) PLATELET MEAN VOLUME [ENTITIC VOLUME] IN BLOOD BY AUTOMATED COUNT 9.2 fL 9.2 - 12.4 01/25 Specimen Type: BLOOD No comment entered. Ordering Provider: LIAM AGUILAR Report Released Date/Time: January 21, 2025 04:16 PM Reporting Lab: [facility] [place] [facility] [address] [facility] [address] Performing Lab: [facility] [place] [facility] [address] [facility] [address] [facility] [place] [facility] CBC AND DIFF (AUTO) ERYTHROCYT E DISTRIBUTI ON WIDTH [RATIO] BY AUTOMATED COUNT 15.1 12.0 - 16.0 01/25 Specimen Type: BLOOD No comment entered. Ordering Provider: LIAM AGUILAR Report Released Date/Time: January 21, 2025 04:16 PM Reporting Lab: [facility] [place] [facility] [address] [facility] [address] Performing Lab: [facility] [place] [facility] [address] [facility] [address] [facility] [place] [facility] CBC AND DIFF (AUTO) MONOCYTES [#/VOLUME] IN BLOOD BY AUTOMATED COUNT 0.81 10*3/uL 0.30 - 1.10 01/25 Specimen Type: BLOOD No comment entered. Ordering Provider: LIAM AGUILAR Report Released Date/Time: January 21, 2025 04:16 PM Reporting Lab: [facility]RBA[facility]ITALTRN [place] [address] [address] Performing Lab: [facility] [place] [facility] [address] [facility] [address] [facility] [place] [facility] CBC AND DIFF (AUTO) MCH [ENTITIC MASS] BY AUTOMATED COUNT 29.8 pg 26.2 - 32.6 01/25 Specimen Type: BLOOD No comment entered. Ordering Provider: LIAM AGUILAR Report Released Date/Time: January 21, 2025 04:16 PM Reporting Lab: [facility]RBA[facility]ITALTR[facility] [place] [address] [address] Performing Lab: [facility] [place] [facility] [address] [facility] [address] [facility] TRN [place] [facility] CBC AND DIFF (AUTO) NEUTROPHIL S/100 LEUKOCYTES IN BLOOD BY AUTOMATED COUNT 51.9 43.7 - 75.8 01/25 Specimen Type: BLOOD No comment entered. Ordering Provider: LIAM AGUILAR Report Released Date/Time: January 21, 2025 04:16 PM Reporting Lab: [facility] [place] [address] [address] Performing Lab: [facility] [place] [address] [address] [facility] [place] [facility] CBC AND DIFF (AUTO) LYMPHOCYTE S/100 LEUKOCYTES IN BLOOD BY AUTOMATED COUNT 32.4 14.0 - 42.3 01/25 Specimen Type: BLOOD No comment entered. Ordering Provider: LIAM AGUILAR Report Released Date/Time: January 21, 2025 04:16 PM Reporting Lab: [facility] [place] [facility] [address] [facility] [address] Performing Lab: [facility] [place] [facility] [address] [facility] [address] [facility] [place] [facility] CBC AND DIFF (AUTO) MONOCYTES/ 100 LEUKOCYTES IN BLOOD BY AUTOMATED COUNT 10.5 5.1 - 13.7 01/25 Specimen Type: BLOOD No comment entered. Ordering Provider: LIAM AGUILAR Report Released Date/Time: January 21, 2025 04:16 PM Reporting Lab: [facility] [place] [facility] [address] [place] [address] Performing Lab: [facility] [place] [facility] [address] [place] [address] [facility] [place] [facility] CBC AND DIFF (AUTO) EOSINOPHIL S/100 LEUKOCYTES IN BLOOD BY AUTOMATED COUNT 4.0 0.4 - 6.8 01/25 Specimen Type: BLOOD No comment entered. Ordering Provider: LIAM AGUILAR Report Released Date/Time: January 21, 2025 04:16 PM Reporting Lab: [facility] [place] [facility] [address] [place] [address] Performing Lab: [facility] [place] [facility] [address] [place] [address] [facility] [place] [facility] CBC AND DIFF (AUTO) BASOPHILS/ 100 LEUKOCYTES IN BLOOD BY AUTOMATED COUNT 0.9 0.1 - 2.0 01/25 Specimen Type: BLOOD No comment entered. Ordering Provider: LIAM AGUILAR Report Released Date/Time: January 21, 2025 04:16 PM Reporting Lab: [facility] [place] [facility] [address] [place] [address] Performing Lab: [facility] [place] [facility] [address] [facility] [address] [facility] [place] [facility] CBC AND DIFF (AUTO) NEUTROPHIL S [#/VOLUME] IN BLOOD BY AUTOMATED COUNT 4.02 10*3/uL 2.20 - 7.60 01/25 Specimen Type: BLOOD No comment entered. Ordering Provider: LIAM AGUILAR Report Released Date/Time: January 21, 2025 04:16 PM Reporting Lab: [facility] [place] [facility] [address] [facility] [address] Performing Lab: [facility] [facility] [address] [facility] [address] [facility] [place] [facility] CBC AND DIFF (AUTO) LYMPHOCYTE S [#/VOLUME] IN BLOOD BY AUTOMATED COUNT 2.51 10*3/uL 1.00 - 3.20 01/25 Specimen Type: BLOOD No comment entered. Ordering Provider: LIAM AGUILAR Report Released Date/Time: January 21, 2025 04:16 PM Reporting Lab: [facility] [place] [address] [address] Performing Lab: [facility] [facility] [address] [facility] [address] [facility] TRN [facility] CBC AND DIFF (AUTO) EOSINOPHIL S [#/VOLUME] IN BLOOD BY AUTOMATED COUNT 0.31 10*3/uL 0.03 - 0.44 01/25 Specimen Type: BLOOD No comment entered. Ordering Provider: LIAM AGUILAR Report Released Date/Time: January 21, 2025 04:16 PM Reporting Lab: [facility] [place] [address] [address] Performing Lab: [facility] [facility] [address] [address] [facility]ITALRL.[facility]N [facility] CBC AND DIFF (AUTO) BASOPHILS [#/VOLUME] IN BLOOD BY AUTOMATED COUNT 0.07 10*3/uL 0.01 - 0.13 01/25 Specimen Type: BLOOD No comment entered. Ordering Provider: LIAM AGUILAR Report Released Date/Time: January 21, 2025 04:16 PM Reporting Lab: [facility] [place] [facility] [address] [facility] [address] Performing Lab: [facility] [place] [facility] [address] [facility] [address] [facility] [place] [facility] CBC AND DIFF (AUTO) IMMATURE GRANULOCYT ES/100 LEUKOCYTES IN BLOOD BY AUTOMATED COUNT 0.3 0.0 - 0.7 01/25 Specimen Type: BLOOD No comment entered. Ordering Provider: LIAM AGUILAR Report Released Date/Time: January 21, 2025 04:16 PM Reporting Lab: [facility] [place] [facility] [address] [facility] [address] Performing Lab: [facility] [place] [facility] [address] [facility] [address] [facility] [place] [facility] CBC AND DIFF (AUTO) IMMATURE GRANULOCYT ES [#/VOLUME] IN BLOOD BY AUTOMATED COUNT 0.02 10*3/uL 0.00 - 0.06 01/25 Specimen Type: BLOOD No comment entered. Ordering Provider: LIAM AGUILAR Report Released Date/Time: January 21, 2025 04:16 PM Reporting Lab: [facility] [place] [facility] [address] [facility] [address] Performing Lab: [facility] [place] [facility] [address] [facility] [address] [facility] [place] [facility] CBC AND DIFF (AUTO) NUCLEATED ERYTHROCYT ES/100 LEUKOCYTES [RATIO] IN BLOOD BY AUTOMATED COUNT 0.0 0.0 - 0.0 01/25 Specimen Type: BLOOD No comment entered. Ordering Provider: LIAM AGUILAR Report Released Date/Time: January 21, 2025 04:16 PM Reporting Lab: [facility] [place] [facility] [address] [facility] [address] Performing Lab: [facility] [place] [address] [address] [facility] [place] [facility] CBC AND DIFF (AUTO) NUCLEATED ERYTHROCYT ES [#/VOLUME] IN BLOOD BY AUTOMATED COUNT 0.00 10*3/uL 0.00 - 0.00 01/25 Specimen Type: BLOOD No comment entered. Ordering Provider: LIAM AGUILAR Report Released Date/Time: January 21, 2025 04:16 PM Reporting Lab: [facility] [place] [facility] [address] [facility] [address] Performing Lab: [facility] [place] [facility] [address] [facility] [address] [facility] [place] [facility] FERRITIN FERRITIN [MASS/VOLU ME] IN SERUM OR PLASMA 38 ng/mL 20 - 300 11/05 Specimen Type: SERUM No comment entered. Ordering Provider: TRAVIS AGUERO Report Released Date/Time: Oct 14, 2024 12:52 PM Reporting Lab: [facility] [place] [address] [address] Performing Lab: [facility] [place] [facility] [address] [facility] [address] [facility] [place] [facility] IRON & TIBC PANEL IRON BINDING CAPACITY [MASS/VOLU ME] IN SERUM OR PLASMA 351 ug/dL 204 - 475 11/05 Specimen Type: SERUM No comment entered. Ordering Provider: TRAVIS AGUERO Report Released Date/Time: Oct 14, 2024 12:52 PM Reporting Lab: [facility] [place] [facility] [address] [facility] [address] Performing Lab: [facility] [place] [facility] [address] [facility] [address] [facility] [place] [facility] IRON & TIBC PANEL IRON [MASS/VOLU ME] IN SERUM OR PLASMA 167 ug/dL 40 - 160 11/05 H Specimen Type: SERUM No comment entered. Ordering Provider: TRAVIS AGUERO Report Released Date/Time: Oct 14, 2024 12:52 PM Reporting Lab: [facility] [place] [facility] [address] [facility] [address] Performing Lab: [facility] [facility] [address] [facility] [address] [facility] [place] [facility] IRON & TIBC PANEL IRON/IRON BINDING CAPACITY.T OTAL [MASS RATIO] IN SERUM OR PLASMA 47.6 20.0 - 50.0 11/05 Specimen Type: SERUM No comment entered. Ordering Provider: TRAVIS AGUERO Report Released Date/Time: Oct 14, 2024 12:52 PM Reporting Lab: [facility] [facility] [address] [facility] [address] Performing Lab: [facility] [place] [facility] [address] [facility] [address] [facility] [place] [facility] IRON & TIBC PANEL TRANSFERRI N [MASS/VOLU ME] IN SERUM OR PLASMA 266 mg/dL 200 - 360 11/05 Specimen Type: SERUM No comment entered. Ordering Provider: TRAVIS AGUERO Report Released Date/Time: Oct 14, 2024 12:52 PM Reporting Lab: [facility] [facility] [address] [facility] [address] Performing Lab: [facility] [facility] [address] [facility] [address] [facility] [facility] CBC AND DIFF (AUTO) LEUKOCYTES [#/VOLUME] IN BLOOD BY AUTOMATED COUNT 5.02 10*3/uL 4.50 - 11.00 11/05 Specimen Type: BLOOD No comment entered. Ordering Provider: TRAVIS AGUERO Report Released Date/Time: Oct 14, 2024 12:52 PM Reporting Lab: [facility] [facility] [address] [facility] [address] Performing Lab: [facility] [facility] [address] [facility] [address] [facility] [place] [facility] CBC AND DIFF (AUTO) ERYTHROCYT ES [#/VOLUME] IN BLOOD BY AUTOMATED COUNT 4.56 10*6/uL 4.23 - 5.66 03/13 /2025 Specimen Type: BLOOD No comment entered. Ordering Provider: TRAVIS AGUERO Report Released Date/Time: Oct 14, 2024 12:52 PM Reporting Lab: [facility] [place] [facility] [address] [facility] [address] Performing Lab: [facility] [place] [facility] [address] [facility] [address] [facility] [place] [facility] CBC AND DIFF (AUTO) HEMOGLOBIN [MASS/VOLU ME] IN BLOOD 13.3 g/dL 12.8 - 17 11/05 Specimen Type: BLOOD No comment entered. Ordering Provider: TRAVIS AGUERO Report Released Date/Time: Oct 14, 2024 12:52 PM Reporting Lab: [facility] [place] [facility] [address] [facility] [address] Performing Lab: [facility] [place] [facility] [address] [facility] [address] [facility] [place] [facility] CBC AND DIFF (AUTO) HEMATOCRIT [VOLUME FRACTION] OF BLOOD BY AUTOMATED COUNT 40.0 39.2 - 50.4 11/05 Specimen Type: BLOOD No comment entered. Ordering Provider: TRAVIS AGUERO Report Released Date/Time: Oct 14, 2024 12:52 PM Reporting Lab: [facility] [place] [facility] [address] [facility] [address] Performing Lab: [facility] [place] [facility] [address] [facility] [address] [facility] [place] [facility] CBC AND DIFF (AUTO) MCV [ENTITIC VOLUME] BY AUTOMATED COUNT 87.7 fL 82 - 99 11/05 Specimen Type: BLOOD No comment entered. Ordering Provider: TRAVIS AGUERO Report Released Date/Time: Oct 14, 2024 12:52 PM Reporting Lab: [facility] [place] [facility] [address] [facility] [address] Performing Lab: [facility] [place] [facility] [address] [facility] [address] [facility] [place] [facility] CBC AND DIFF (AUTO) MCHC [MASS/VOLU ME] BY AUTOMATED COUNT 33.3 g/dL 30.8 - 35.1 11/05 Specimen Type: BLOOD No comment entered. Ordering Provider: TRAVIS AGUERO Report Released Date/Time: Oct 14, 2024 12:52 PM Reporting Lab: [facility] [place] [address] [address] Performing Lab: [facility] [place] [facility] [address] [facility] [address] [facility] [place] [facility] CBC AND DIFF (AUTO) PLATELETS [#/VOLUME] IN BLOOD BY AUTOMATED COUNT 344 10*3/uL 140 - 360 11/05 Specimen Type: BLOOD No comment entered. Ordering Provider: TRAVIS AGUERO Report Released Date/Time: Oct 14, 2024 12:52 PM Reporting Lab: [facility] [place] [address] [address] Performing Lab: [facility] [place] [address] [address] [facility] [place] [facility] CBC AND DIFF (AUTO) ERYTHROCYT E DISTRIBUTI ON WIDTH [RATIO] BY AUTOMATED COUNT 14.5 12.0 - 16.0 11/05 Specimen Type: BLOOD No comment entered. Ordering Provider: TRAVIS AGUERO Report Released Date/Time: Oct 14, 2024 12:52 PM Reporting Lab: [facility] [place] [address] [address] Performing Lab: [facility] [place] [address] [address] [facility] [place] [facility] CBC AND DIFF (AUTO) MONOCYTES [#/VOLUME] IN BLOOD BY AUTOMATED COUNT 0.58 10*3/uL 0.30 - 1.10 11/05 Specimen Type: BLOOD No comment entered. Ordering Provider: TRAVIS AGUERO Report Released Date/Time: Oct 14, 2024 12:52 PM Reporting Lab: [facility] [place] [facility] [address] [facility] [address] Performing Lab: [facility] [place] [facility] [address] [facility] [address] [facility] [place] [facility] CBC AND DIFF (AUTO) MCH [ENTITIC MASS] BY AUTOMATED COUNT 29.2 pg 26.2 - 32.6 11/05 Specimen Type: BLOOD No comment entered. Ordering Provider: TRAVIS AGUERO Report Released Date/Time: Oct 14, 2024 12:52 PM Reporting Lab: [facility] [place] [facility] [address] [facility] [address] Performing Lab: [facility] [place] [facility] [address] [facility] [address] [facility] [place] [facility] CBC AND DIFF (AUTO) NEUTROPHIL S/100 LEUKOCYTES IN BLOOD BY AUTOMATED COUNT 40.4 43.7 - 75.8 11/05 L Specimen Type: BLOOD No comment entered. Ordering Provider: TRAVIS AGUERO Report Released Date/Time: Oct 14, 2024 12:52 PM Reporting Lab: [facility] [place] [facility] [address] [facility] [address] Performing Lab: [facility] [place] [facility] [address] [facility] [address] [facility] [place] CBC AND DIFF (AUTO) LYMPHOCYTE S/100 LEUKOCYTES IN BLOOD BY AUTOMATED COUNT 41.2 14.0 - 42.3 11/05 Specimen Type: BLOOD No comment entered. Ordering Provider: TRAVIS AGUERO Report Released Date/Time: Oct 14, 2024 12:52 PM Reporting Lab: [facility] [address] [facility] [phone] Performing Lab: [facility] [address] [facility] [phone] [facility] CBC AND DIFF (AUTO) MONOCYTES/ 100 LEUKOCYTES IN BLOOD BY AUTOMATED COUNT 11.6 5.1 - 13.7 11/05 Specimen Type: BLOOD No comment entered. Ordering Provider: TRAVIS AGUERO Report Released Date/Time: Oct 14, 2024 12:52 PM Reporting Lab: [facility] [address] [facility] [phone] Performing Lab: [facility] [address] [facility] [phone] [facility] CBC AND DIFF (AUTO) EOSINOPHIL S/100 LEUKOCYTES IN BLOOD BY AUTOMATED COUNT 5.4 0.4 - 6.8 11/05 Specimen Type: BLOOD No comment entered. Ordering Provider: TRAVIS AGUERO Report Released Date/Time: Oct 14, 2024 12:52 PM Reporting Lab: [facility] [address] [facility] [phone] Performing Lab: [facility] [address] [place] [phone] [facility] CBC AND DIFF (AUTO) BASOPHILS/ 100 LEUKOCYTES IN BLOOD BY AUTOMATED COUNT 1.2 0.1 - 2.0 11/05 Specimen Type: BLOOD No comment entered. Ordering Provider: TRAVIS AGUERO Report Released Date/Time: Oct 14, 2024 12:52 PM Reporting Lab: [facility] [address] [facility] [phone] Performing Lab: [facility] [address] [place] [phone] [facility] CBC AND DIFF (AUTO) NEUTROPHIL S [#/VOLUME] IN BLOOD BY AUTOMATED COUNT 2.03 10*3/uL 2.20 - 7.60 11/05 L Specimen Type: BLOOD No comment entered. Ordering Provider: TRAVIS AGUERO Report Released Date/Time: Oct 14, 2024 12:52 PM Reporting Lab: [facility] [address] [facility] [phone] Performing Lab: [facility] [address] [place] [phone] [facility] CBC AND DIFF (AUTO) LYMPHOCYTE S [#/VOLUME] IN BLOOD BY AUTOMATED COUNT 2.07 10*3/uL 1.00 - 3.20 11/05 Specimen Type: BLOOD No comment entered. Ordering Provider: TRAVIS AGUERO Report Released Date/Time: Oct 14, 2024 12:52 PM Reporting Lab: [facility] [address] [facility] [address] Performing Lab: [facility] [address] [facility] [address] [facility] CBC AND DIFF (AUTO) EOSINOPHIL S [#/VOLUME] IN BLOOD BY AUTOMATED COUNT 0.27 10*3/uL 0.03 - 0.44 11/05 Specimen Type: BLOOD No comment entered. Ordering Provider: TRAVIS AGUERO Report Released Date/Time: Oct 14, 2024 12:52 PM Reporting Lab: [facility] [address] [place] [address] Performing Lab: [facility] [address] [facility] [address] [facility] CBC AND DIFF (AUTO) BASOPHILS [#/VOLUME] IN BLOOD BY AUTOMATED COUNT 0.06 10*3/uL 0.01 - 0.13 11/05 Specimen Type: BLOOD No comment entered. Ordering Provider: TRAVIS AGUERO Report Released Date/Time: Oct 14, 2024 12:52 PM Reporting Lab: [facility] [address] [facility] [address] Performing Lab: [facility] [address] [place] [address] [facility] CBC AND DIFF (AUTO) IMMATURE GRANULOCYT ES/100 LEUKOCYTES IN BLOOD BY AUTOMATED COUNT 0.2 0.0 - 0.7 11/05 Specimen Type: BLOOD No comment entered. Ordering Provider: TRAVIS AGUERO Report Released Date/Time: Oct 14, 2024 12:52 PM Reporting Lab: [facility] [address] [facility] [address] Performing Lab: [facility] [address] [facility] [address] [facility] CBC AND DIFF (AUTO) IMMATURE GRANULOCYT ES [#/VOLUME] IN BLOOD BY AUTOMATED COUNT 0.01 10*3/uL 0.00 - 0.06 11/05 Specimen Type: BLOOD No comment entered. Ordering Provider: TRAVIS AGUERO Report Released Date/Time: Oct 14, 2024 12:52 PM Reporting Lab: [facility] [address] [facility] [address] Performing Lab: [facility] [address] [facility] [address] [facility] CBC AND DIFF (AUTO) NUCLEATED ERYTHROCYT ES/100 LEUKOCYTES [RATIO] IN BLOOD BY AUTOMATED COUNT 0.0 0.0 - 0.0 11/05 Specimen Type: BLOOD No comment entered. Ordering Provider: TRAVIS AGUERO Report Released Date/Time: Oct 14, 2024 12:52 PM Reporting Lab: [facility] [address] [facility] [address] Performing Lab: [facility] [address] [address] [facility] CBC AND DIFF (AUTO) NUCLEATED ERYTHROCYT ES [#/VOLUME] IN BLOOD BY AUTOMATED COUNT 0.00 10*3/uL 0.00 - 0.00 11/05 Specimen Type: BLOOD No comment entered. Ordering Provider: TRAVIS AGUERO Report Released Date/Time: Oct 14, 2024 12:52 PM Reporting Lab: [facility] [address] [facility] [address] Performing Lab[facility] [address] [address] [facility] OCCULT BLOOD FIT X1 SCREEN(I N-HOUSE) HEMOGLOBIN .GASTROINT ESTINAL.LO WER [PRESENCE] IN STOOL BY IMMUNOASSA Y POSITIVE 10/11 Specimen Type: FECES No comment entered. Ordering Provider: TRAVIS AGUERO Report Released Date/Time: Oct 09, 2024 10:32 AM Reporting Lab: [facility] [address] [facility] [address] Performing Lab: [facility] [address] [facility] [address] [facility] FERRITIN FERRITIN [MASS/VOLU ME] IN SERUM OR PLASMA 40 ng/mL 20 - 300 10/09 Specimen Type: SERUM No comment entered. Ordering Provider: TRAVIS AGUERO Report Released Date/Time: Oct 09, 2024 10:43 AM Reporting Lab: [facility] [address] [facility] [address] Performing Lab: [facility] [address] [facility] [address] [facility] Vital Signs Combined list of inpatient and outpatient Vital Signs from Department of Defense and Veterans Affairs, ranging from 12 months to all on record, depending upon the facility. Vital Sign Value Date Comments Source SYSTOLIC BLOOD PRESSURE 153 03/22/20 25 10:32:05 [facility] DIASTOLIC BLOOD PRESSURE 84 025 10:32:05 [facility] PULSE OXIMETRY 96 % 03/22/2025 10:32:05 [facility] PAIN 4 03/22/2025 10:32:05 [facility] TEMPERATURE 97.5 03/22/2025 10:32:05 [facility] PULSE 60 03/22/2025 10:32:05 [facility] RESPIRATION 16 03/22/2025 10:32:05 [facility] SYSTOLIC BLOOD PRESSURE 144 03/17/20 25 13:05:00 [facility] DIASTOLIC BLOOD PRESSURE 83 025 13:05:00 [facility] PULSE OXIMETRY 98 % 03/17/2025 13:05:00 [facility] PAIN 0 03/17/2025 13:05:00 [facility] TEMPERATURE 98 03/17/2025 13:05:00 [facility] PULSE 80 03/17/2025 13:05:00 [facility] RESPIRATION 16 03/17/2025 13:05:00 [facility] SYSTOLIC BLOOD PRESSURE 130 02/24/20 25 13:02:42 [facility] DIASTOLIC BLOOD PRESSURE 70 025 13:02:42 [facility] PAIN 10 02/23/2025 13:02:42 [facility] SYSTOLIC BLOOD PRESSURE 144 02/20/20 14:35:01 [facility] DIASTOLIC BLOOD PRESSURE 78 025 14:35:01 [facility] PULSE OXIMETRY 97 % 02/19/2025 14:35:01 [facility] WEIGHT 258.8 02/19/2025 14:35:01 [facility] BMI 35 kg/m2 02/19/2025 14:35:01 [facility] TEMPERATURE 96.9 02/19/2025 14:35:01 [facility] PULSE 77 02/19/2025 14:35:01 [facility] SYSTOLIC BLOOD PRESSURE 135 10/09/19 10:25:35 [facility] DIASTOLIC BLOOD PRESSURE 83 025 10:25:35 [facility] PULSE OXIMETRY 97 10/09/2024 10:25:35 [facility] WEIGHT 247 10/09/2024 10:25:35 [facility] BMI 34 kg/m2 10/09/2024 10:25:35 [facility] TEMPERATURE 96.9 10/09/2024 10:25:35 [facility] PULSE 90 10/09/2024 10:25:35 [facility] Encounters Combined list of: 1) Encounters from Department of Veterans Affairs facilities going backup to the last 18 months, not all [place] inpatient encounters are included; 2) Encounters from the Department of Defense facilities going backup to 280 months. Location Location Details Encounter Type Encounter Number Reason For Visit Attending Provider ADM Date DC Date Status Disposition Source [facility] Outpatient Encounter [id number] 10/29 [facility] Out[facility] Encounter [id number] 10/30 [facility] Outpatient Encounter [id number] 10/30 [facility] Outpatient Encounter [id number] 10/31 [facility] Outpatient Encounter [id number] 11/04 [facility] Outpatient Encounter [id number] 11/06 [facility] Out[facility]counter [id number] 11/06 [facility] Out[facility] Encounter [id number] 11/12 [facility] Out[facility] Encounter [id number] 11/13 [facility] Out[facility] Encounter [id number] 11/14 [facility] Out[facility] Encounter [id number] 11/16 [facility] Out[facility] Encounter [id number] 11/19 [facility] Out[facility] Encounter [id number] 11/25 [facility] [place] OFF[place] O/P EST MOD 30 MIN [id number] Diagnos is: ICD-10- CM F43.21 Adjustm ent disorde r with depress ed mood NARCISO,Felipa JONESNARIO 11/25 [place] Out[facility] En[place] [id number] 12/02 [place] [facility] En[facility] [id number] 12/02 [place] [facility] OFFICE O/P EST HI 40 MIN [id number] Diagnos is: ICD-10- CM 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, lumbar region HERNANDEZMICHAEL THI 12/02 [facility] Out[facility] Encounter [id number] 12/03 [facility] Out[facility] Encounter [id number] 12/04 [facility] Out[facility] Encounter [id number] 12/16 [facility] Out[facility] Encounter [id number] 12/16 [facility] Out[facility] Encounter [id number] 12/16 [facility] Out[facility] Encounter [id number] 12/18 [facility] Out[facility] Encounter [id number] 12/18 [facility] Out[facility] Encounter [id number] 12/19 [facility] Out[facility] Encounter [id number] 12/25 [facility] Out[facility] Encounter [id number] 12/26 [facility] Out[facility] Encounter [id number] 12/29 [facility] Out[facility] Encounter [id number] 12/29 [facility] Out[facility] Encounter [id number] 12/30 [facility] OFFICE O/P EST MOD 30 MIN [id number] Diagnos is: ICD-10- CM Z09 Encntr for f/u exam aft trtmt for cond oth than malig neoplm NARCISOFelipa BULLARD 12/30 [place] [facility] Out[facility] Encounter [id number] 12/31 [facility] Out[facility] Encounter [id number] 01/06 [facility] Out[facility] Encounter [id number] 01/06 [facility] Out[facility] Encounter [id number] 01/09 [facility] Out[facility] Encounter [id number] 01/12 [facility] OFFICE O/P EST SF 10 MIN [id number] Diagnos is: ICD-10- CM M47.896 Other spondyl osis, lumbar region Meron THORNTON 01/14 [facility] Out[facility] Encounter [id number] 01/15 [facility] Out[facility] Encounter [id number] 01/16 [facility] Out[facility] Encounter [id number] 01/19 [facility] Out[facility] Encounter [id number] 01/23 [facility] Out[facility] Encounter [id number] 01/23 [facility] Out[facility] Encounter [id number] 01/23 [facility] Out[facility] Encounter [id number] 01/23 [facility] E[facility] D[facility] REPORT [id number] Diagnos is: ICD-10- CM Z13.6 Encount er for screeni ng for cardiov ascular disorde rs NELY,PAR UL U 01/23 [place] [facility] OFFICE O/P EST HI 40 MIN [id number] Diagnos is: ICD-10- CM G40.89 Other seizure s CORY,DA VID A 01/23 [place] [facility] Out[facility] Encounter [id number] 01/23 [facility] Out[facility] Encounter [id number] 01/27 [facility] Out[facility] Encounter [id number] 01/28 [facility] Out[facility] Encounter [id number] 01/29 [facility] Out[facility] Encounter [id number] 01/29 [facility] Out[facility] Encounter [id number] 01/31 [facility] COMPRE OPH EXAM EST PT 1/> [id number] Diagnos is: ICD-10- CM 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, bilater al, severe stage MERHAR,DEVIN H B 02/02 [facility] FIT SPECTACLES MONOFOCAL [id number] Diagnos is: ICD-10- CM Z46.0 Encount er for fit/adj st of spectac les and contact lenses DEVIN TUTTLE H B 02/02 [facility] Out[facility] Encounter [id number] 02/04 [facility] Out[facility] Encounter [id number] 02/05 [facility] [place] OFFICE O/P EST LOW 20 MIN [id number] Diagnos is: ICD-10- CM L60.3 Nail dystrop hy LORENA SHELLEY ES F 02/05 [place] [facility] OFFICE O/[place] HI 40 MIN [id number] Diagnos is: ICD-10- CM M46.1 Sacroil iitis, not elsewhe re classif ied MICHAEL HERNANDEZ 02/13 [facility] Outpatient Encounter [id number] 02/13 [facility] OFFICE O/P EST LOW 20 MIN [id number] Diagnos is: ICD-10- CM M47.897 Other spondyl osis, lumbosa cral region Meron THORNTON 02/23 [facility] En[facility] [id number] 02/23 [facility] Outpatient Encounter [id number] 02/24 [facility] Encounter [id number] 03/06 [facility] REPLACEMEN T FACEMASK INTERFA [id number] Diagnos is: ICD-10- CM G47.33 Obstruc tive sleep apnea (adult) ([facility]) JARMOLOWIC Z,GRAYSON 03/07 [facility] Outpatient Encounter [id number] 03/10 [facility] OFFICE O/P EST LOW 20 MIN [id number] Diagnos is: ICD-10- CM M17.0 Bilater al primary osteoar thritis of knee Meron THORNTON 03/16 [facility] Outpatient Encounter [id number] 03/23 [facility] [place] OFFICE O/P EST MOD 30 MIN [id number] Diagnos is: ICD-10- CM Z08 Encntr for follow- up exam after trtmt for maligna nt neoplas m NARCISO,A POLINAVAIO 03/23 [place] [facility] OFFICE O/P EST HI 40 MIN [id number] Diagnos is: ICD-10- CM M47.896 Other spondyl osis, lumbar region MICHAEL HERNANDEZ 04/15 [facility] Outpatient Encounter [id number] 04/15 [facility] Out[facility] Encounter [id number] 04/17 [facility] Out[facility] Encounter [id number] 05/07 [facility] Out[facility] Encounter [id number] 05/15 [facility] Out[facility] Encounter [id number] 05/16 [facility] Out[facility] Encounter [id number]/26 [facility] [place] PSYTX W PT 30 MINUTES [id number] Diagnos is: ICD-10- CM F32.A Depress ion, unspeci fied VINOCOUR,J ILL M 06/04 [place] [facility] Out[facility] Encounter [id number] 06/11 [facility] [place] PSYTX W PT 30 MINUTES [id number] Diagnos is: ICD-10- CM F51.01 Primary insomni a VINOCOUR,J ILL M 06/25 [place] OFFICE O/P EST MOD 30 MIN [id number] Diagnos is: ICD-10- CM L60.3 Nail dystrop hy ROSS,CHARL ES F 06/25 [place] [facility] Out[facility] Encounter [id number] 07/14 [facility] Out[facility] Encounter [id number] 07/14 [facility] Out[facility] Encounter [id number] 07/14 [facility] Out[facility] Encounter [id number]/20 [facility] INTRM OPH EXAM EST PATIENT [id number] Diagnos is: ICD-10- CM 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 Diagnos is: ICD-10- CM Z46.0 Encount er for fit/adj st of spectac les and contact lenses MERDIANA,DEVIN H B 07/31 [facility] Out[facility] Encounter [id number] 08/05 [facility] [place] OFF/OP EST DECEMBER X REQ PHY/QHP [id number] Diagnos is: ICD-10- CM M54.50 Low back pain, unspeci fied HARPAL,ER IC K 08/05 [place] [facility] Out[facility] Encounter [id number] 08/10 [facility] [place] OFF/OP EST MAY X REQ PHY/QHP [id number] Diagnos is: ICD-10- CM R09.81 Nasal congest ion SIDRA ROWAN IC K 08/17 [place] [facility] Out[facility] Encounter [id number] 08/17 [facility] Out[facility] Encounter [id number] [facility] Out[facility] Encounter [id number] 08/28 [facility] OFFICE O/P EST HI 40 MIN [id number] Diagnos is: ICD-10- CM M47.896 Other spondyl osis, lumbar region MICHAEL HERNANDEZ THI 09/02 [facility] Outpatient Encounter [id number]/02 [facility] OFFICE O/P EST LOW 20 MIN [id number] Diagnos is: ICD-10- CM M17.0 Bilater al primary osteoar thritis of knee Meron THORNTON 09/23 [facility] En[facility] [id number] 10/09 [facility] OFFICE O/P EST MOD 30 MIN [id number] Diagnos is: ICD-10- CM G47.33 Obstruc tive sleep apnea (adult) ([facility]erva) CELESTE AGUERO 10/09 [place] [facility] Outpatient Encounter [id number] 10/14 [facility] NQHP OL DIG ASSMT&MGMT 21+ [id number] Diagnos is: ICD-10- CM Z12.2 Encntr screen for maligna nt neoplas m of respira tory organs PEE MASON Meron 10/15 [facility] OFFICE O/P EST LOW 20 MIN [id number] 1BY. 03 Diagnos is: ICD-10- CM L60.3 Nail dystrop hy LORENA SHELLEY ES F 11/05 [facility] [place] [facility] Outpatient Encounter [id number] [facility] PSYCH DIAGNOSTIC EVALUATION [id number] Diagnos is: ICD-10- CM F51.01 Primary insomni a BOWEN RODRÍGUEZ 11/09 [place] [facility] Outpatient Encounter [id number] BOWEN RODRÍGUEZ 11/09 [facility] En[facility] [id number] 11/10 [facility] NQHP OL DIG ASSMT&MGMT 11-20 [id number] Diagnos is: ICD-10- CM Z12.2 Encntr screen for maligna nt neoplas m of respira tory organs ALF DAMONECCA L 11/10 [facility] En[facility] [id number] 11/16 [facility] LD PSYTX W PT 45 MINUTES [id number] Diagnos is: ICD-10- CM F51.01 Primary insomni a JARAD RODRÍGUEZLEEN K 11/16 [place] [facility] Encounter [id number] 11/16 [facility] En[facility] [id number] BOWEN RODRÍGUEZ 11/16 [facility] LD PSYTX W PT 45 MINUTES [id number] [id number] Diagnos is: ICD-10- CM F51.01 Primary insomni a JARAD RODRÍGUEZCRIS [employer] 11/23 [place] [facility] Out[facility] Encounter [id number] 11/23 [facility] En[facility] [id number] MARCOSBOWEN [employer] 11/23 [facility] Encounter [id number] 11/23 [facility] Encounter [id number] 11/23 [facility]counter [id number] 11/23 [facility] Encounter [id number] 11/27 [facility] [place] PSYTX W PT 45 MINUTES [id number] Diagnos is: ICD-10- CM F51.01 Primary insomni a MARCOSBOWEN [employer] 11/30 [place] [facility] Out[facility] Encounter [id number] BOWEN RODRÍGUEZ 11/30 [facility] SYNCH AUDIO-ONLY NEW LOW 30 [id number] [id number] Diagnos is: ICD-10- CM G47.33 Obstruc tive sleep apnea (adult) (pediat minerva) BALTAZAR SETHI 11/30 [place] COLLJ [facility] INTERPJ DATA EA 30 D [id number] Diagnos is: ICD-10- CM G47.33 Obstruc tive sleep apnea (adult) (pediat minerva) CARLOSCAMRYN 11/30 [place] PSYTX W PT 60 MINUTES [id number] [id number] Diagnos is: ICD-10- CM F51.01 Primary insomni a MARCOSBOWEN [employer] 12/07 [place] [facility] Encounter [id number] BOWEN RODRÍGUEZ 12/07 [facility] En[facility] [id number] 12/14 [facility] [id number] 12/25 [facility] Outpatient Encounter [id number] 01/07 [facility] Out[facility] Encounter [id number] 01/08 [facility] Outpatient Encounter [id number] [facility] Outpatient Encounter [id number] [facility] Outpatient Encounter [id number] [facility] Outpatient Encounter [id number] 01/19 [facility] Out[facility] Encounter [id number] 01/20 [facility] NQHP OL DIG ASSMT&MGMT 5-10 [id number] Diagnos is: ICD-10- CM I1A.0 Resista nt hyperte nsion SOVEROW,CH RISTY A 01/21 [facility] Out[facility] Encounter [id number] 01/22 [facility] Out[facility] Encounter [id number] 01/25 [facility] Outpatient Encounter [id number] 01/26 [facility] OFFICE O/P EST MOD 30 MIN [id number] Diagnos is: ICD-10- CM N40.0 Benign prostat ic hyperpl eder without lower urinry tract symp CHRISTOPHER,SA RA 01/26 JENAE Malloy [facility] Out[facility] Encounter [id number] 01/26 [facility] Outpatient Encounter [id number] 02/02 [facility] Outpatient Encounter [id number] 02/02 [facility] Outpatient Encounter [id number] 02/04 [facility] OFFICE O/P EST MOD 30 MIN [id number]. [id number] Diagnos is: ICD-10- CM K92.2 Gastroi ntestin al hemorrh age, unspeci fied CELESTE AGUERO 02/19 [place] [facility] Outpatient Encounter [id number] CELESTE AGUERO 02/19 [facility] Outpatient Encounter [id number] 02/23 [facility] OFFICE O/P EST MOD 30 MIN [id number] Diagnos is: ICD-10- CM M17.12 Unilate ral primary osteoar thritis , left knee Meron THORNTON 02/23 [facility] Outpatient Encounter [id number] 02/23 [facility] Outpatient Encounter [id number] 02/25 [facility] [place] OFFICE O/P EST LOW 20 MIN [id number] Diagnos is: ICD-10- CM L60.3 Nail dystrop hy ROSS,CHARL ES F 03/03 [place] [facility] Outpatient Encounter [id number] [facility] Outpatient Encounter [id number] [facility] [place] OFF/OP EST MAY X REQ PHY/QHP [id number] Diagnos is: ICD-10- CM Z71.89 Other 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 ed classification counselor ing MARCOS LYN O 03/10 [facility] [id number] Diagnos is: ICD-10- CM F10.21 Alcohol depende nce, in remissi on BRENNEN DEL VALLE E 03/10 [facility] [place] OFF/OP EST MAY X REQ PHY/QHP [id number] Diagnos is: ICD-10- CM R21 Rash and other nonspec ific skin eruptio n HARPAL,ER IC K 03/17 [facility] [place] [place] OFFICE O/P EST MOD 30 MIN [id number] Diagnos is: ICD-10- CM B35.4 Tinea corpori s ELYSE THAKKAR 03/17 [place] [facility] Outpatient Encounter [id number] 03/17 [facility] PSYCH DIAGNOSTIC EVALUATION [id number] Diagnos is: ICD-10- CM F11.20 Opioid depende nce, uncompl icated LOVELY CHOUDHURY 03/22 [facility] Outpatient Encounter [id number] LOVELY CHOUDHURY 03/22 [facility] OFFICE O/P EST LOW 20 MIN [id number] Diagnos is: ICD-10- CM M17.0 Bilater al primary osteoar thritis of knee Meron THORNTON 03/22 [facility] Outpatient Encounter [id number] 03/25 [facility] EDU&TRN PT SELF-MGMT NQHP 1 [id number] Diagnos is: ICD-10- CM G47.33 Obstruc tive sleep apnea (adult) ([facility]) Carroll SMITH ILLIANora 03/30 [facility] PSYTX W PT 30 MINUTES [id number] Diagnos is: ICD-10- CM F11.20 Opioid depende nce, uncompl icated JAD HALE 03/31 [facility] Outpatient Encounter [id number] 04/07 [facility] Outpatient Encounter [id number] 04/19 [facility] Social History Combined list of available smoking, tobacco, and other social history from Department of Defense and Veterans Affairs facilities. Social History Type Response Date Comment Sourc e Tobacco smoking status NHIS VA-TOBACCO USE FORMER CIGARETTES [facility] History of tobacco use VA-TOBACCO NEVER USED OTHER TYPE 01/26/2025 [facility] History of tobacco use DE-TOBACCO QUIT < 1 YEAR 11/26/2023 [facility] History of tobacco use VA-TOBACCO USER EVERY DAY 12/04/2022 [facility] History of tobacco use VA-TOBACCO USER EVERY DAY 09/20/2021 [facility] History of tobacco use VA-TOBACCO USE WI 30 MIN OF WAKEUP 10/06/2020 [facility] History of tobacco use VA-TOBACCO USER SOME DAYS 11/17/2018 [facility] History of tobacco use CURRENT SMOKER 11/29/2017 1/2 ppd [facility] Plan of Care List of future care activities from Department of Veterans Affairs facilities. Additional future care activities may be listed in the Assessment and Plan section. Date/Time Care Activity Care Activity Detail Facili ty 04/28/2025 AMBULATORY - PSYCHIATRY AMBULATORY - PSYC HIATRY [facility] Advance Directives List of completed, amended, or rescinded Advance Directives on record at Department of Veterans Affairs facilities. An actual copy of the Directive is not included. Date Advance Directive Provider Source 01/10/2021 ADVANCE DIRECTIVE DENNISE BRO [facility]
--- OUTSIDE RECORDS SUMMARY | 2025-04-23 10:59 | XMS_ITS | Clinical Summary ---
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 09/30/2023 Active Active Problems Problem Noted Date Diagnosed Date History of hepatitis C 11/04/2024 Overview (11/04/2024): Nov 29, 2017 Entered By: ANDRÉS KUMAR Comment: finished Harvoni tx 08/2017. SVR Dec 05, 2018 Entered By: ZULY STUART Comment: [facility] Provider: Rola Elkins Oct 18, [...] Description 05/05/2025 9:00 AM EDT Office Visit [facility] [address] [place] [address] Jessica Haywood [address] [place] [address] Health Maintenance Due Date Last Done Comments [...]
--- OUTSIDE RECORDS SUMMARY | 2025-04-23 10:59 | XMS_ITS | Encounter Summary ---
Author Organization [employer] Address [address] [facility] 7 [place] [address] Care Team Providers Care Patrol Commander Name Role Phone Unavailable Primary Care Provider Unavailabl e Encounter Details Date Type Department Care Team (Late st Contact Info) Description 04/02/2024 Telephone [facility] ADULT DENT[facility] [address] [place], [place] [phone] Jersey Kenney DMD [address] [place] [address] Social History Tobacco Use Types Packs/Day Years [...] Description 05/05/2025 9:00 AM EDT Office Visit [facility] [address] [place] [address] Jessica Haywood [address] [place] [address] documented as of this encounter Visit Diagnoses Not on filedocumented in this encounter
--- OUTSIDE RECORDS SUMMARY | 2025-04-23 10:59 | XMS_ITS | Encounter Summary ---
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
[2025-04-23 12:33] LABS: Prostate Specific Antigen 4.71 ng/mL (<0.05-4.0)
--- OUTSIDE RECORDS SUMMARY | 2025-06-15 20:00 | XMS_ITS | Clinical Summary ---
Author Organization Unknown Care Team Providers Care Second Class Welder Name Role Phone BRYANNA COUCH DO Unavailable Unavailable MIL ADAN, MILLIE Unavailable Unavailable Payers Payer Name Policy Type Policy Number Effective Date Expira tion Date [place] [id number] Problems Condition Name Condition Details Condition Category Status Onset Date Resolution Date Last Treatment Date Treating Clinician Comments ACUTE CHOLECYSTITI S Active 04-07 00:00: 00 ACQUIRED ABSENCE OF OTHER SPECIFIED PARTS OF DIGESTIVE TRACT Active 04-07 00:00: 00 PARTIAL INTESTINAL OBSTRUCTION, UNSPECIFIED TO CAUSE Active 04-02 00:00: 00 ESSENTIAL (PRIMARY) HYPERTENSION Active 04-02 00:00: 00 Allergies, Adverse Reactions, Alerts Allergy Name Allergy Type Status Severity Reaction(s) Onset Date Inactive Date Treating Clinician Comments NKA Propensity to adverse reactions Active 2025-03 21:13:5 5 Vital Signs Vital Name Observation Time Observation Value Commen ts Temperature 2025-04-20 09:08:00.000 98.2 [degF] Temperature 2025-04-18 14:16:00.000 97.8 [degF] BMI (%) 2025-04-18 14:16:00.000 34 kg/m2 Height 2025-04-18 14:16:00.000 72 [in_us] Pulse 2025-04-20 09:08:00.000 89 /min Pulse 2025-04-18 14:16:00.000 79 /min O2 Saturation (%) 2025-04-20 09:08:00.000 96 % O2 Saturation (%) 2025-04-18 14:16:00.000 97 % Respirations 2025-04-20 09:08:00.000 18 /min Respirations 2025-04-18 14:16:00.000 18 /min Weight (lbs) 2025-04-18 14:16:00.000 255 [lb_av] Systolic Blood Pressure 2025-04-20 09:08:00.000 132 mm [Hg] Systolic Blood Pressure 2025-04-18 14:16:00.000 145 mm [Hg] Diastolic Blood Pressure 2025-04-20 09:08:00.000 [...] MAINTAIN SITUATIONAL AWARENESS AND WILL NOTIFY CLINICAL HELPER CHICKEN FARM AND PHYSICIAN/PROVIDER WITH ANY CHANGE IN CONDITION. [code = SKILLED NURSE TO PERFORM ENVIRONMENTAL SAFETY RISK ASSESSMENT AND FALL RISK ASSESSMENT AND PROVIDE INSTRUCTION TO IMPLEMENT ENVIRONMENTAL SAFETY AND FALL PREVENTION STRATEGIES THROUGHOUT THE CERTIFICATION PERIOD. SKILLED NURSE WILL MAINTAIN SITUATIONAL AWARENESS AND WILL NOTIFY CLINICAL HELPER CHICKEN FARM AND PHYSICIAN/PROVIDER WITH ANY CHANGE IN CONDITION.] [...] CARE WILL BE ESTABLISHED THAT MEETS PATIENT'S MCC NEEDS AND INCLUDES PATIENT GOAL FOR HOME [...] OF TREATMENT ESTABLISHED FOR PHYSICIAN S SIGNATURE. Progress Notes Progress Notes <paragraph>[Visit Date: 2024 by LISETTE ALAMO LPN]:</paragraph><paragraph>SNV 04/20/25</paragraph><paragraph></paragraph><paragraph>ABNORMAL VITALS: NA</paragraph><paragraph></paragraph><paragraph>FALLS: PT DENIES ANY FALLS SINCE LAST SNV</paragraph><paragraph></paragraph><paragraph>OBSERVATION AND ASSESSMENT PROVIDED: ALERT AND ORIENTED X4 PLEASANT DEMEANOR PT. VITALS OBTAINED WNL OF PT BASELINE. LUNGS CTA. PT REPORTING MINIMAL PAIN OF A 4 OUT OF 10. REVIEWED REPOSITIONING REGULARLY, AND PRN IBUPROFEN. PT STATES UNDERSTANDING OF PAIN RELIEF OPTIONS. LUNGS CTA. DURING VISIT PT DAUGHTER CALLED TO INFORM HE HAS AN APPOINTMENT WITH THE SURGEON LATER IN THE DAY. SKIN CLEAN, DR, INTACT, WITH THE EXCEPTION FOR THE INCISION SITE. NO EDEMA NOTED. DRESSING REMOVED TO ASSESS SITE. DONG INTACT. SOME REDNESS SURROUNDING DONG NOTED. EDUCATED PT TO MONITOR FOR INCREASING REDNESS OR CHANGES. PT STATES UNDERSTANDING OF S/S TO MONITOR FOR. ABD PAD PLACED TO COVER SITE PREVENT SHIRT FROM RUBBING AGAINST DONG FOR POSSIBLE IRRATION TO WOUND. PT STATES THAT FEELS BETTER TO HAVE DONG COVERED. STRESSED IMPORTANCE TO HAVE CAREGIVER COMPLETE WOUND CARE ON NON VISIT DAYS. PT INFORMED THAT HIS DAUGHTER ARE THE ONES TO COMPLETE CARE ON THOSE DAYS. NO CHANGES REPORTED TO APPETITE. BOWEL AND BLADDER FUNCTIONS REMAIN REGULAR. WITH PT HISTORY OF BOWEL OBSTRUCTION STRESSED IMPORTANCE OF MONITORING BOWEL MOVEMENTS AND PREVENTING CONSTIPATION. INFORMED PT A NURSE WOULD BE IN CONTACT TO SCHEDULE NEXT VISIT. PT AGREEABLE TO VISIT.</paragraph><paragraph></paragraph><paragraph>CALL TO [employer] TO ORDER NS, GAUZE, AND ABD PADS. CONFIRMATION NUMBER [id number]</paragraph><paragraph></paragraph><paragraph>EDUCATION: S/S OF INFECTION TO MONITOR FOR AT WOUND SITE. IMPORTANCE OF KEEPING WOUND CLEAN IN BETWEEN NURSING VISITS</paragraph><paragraph></paragraph><paragraph>INTERVENTIONS NEEDED AT NEXT VISIT: ASSESSMENT AND WOUND CARE </paragraph><paragraph></paragraph><paragraph>COMMUNICATION WITH MD: NA</paragraph><paragraph></paragraph><paragraph>NEXT MD APPOINTMENT: APT WITH SURGEON TODAY </paragraph><paragraph></paragraph><paragraph>PATIENT AND CAREGIVER INSTRUCTED TO CALL [facility] WITH ANY QUESTIONS OR CONCERNS AND/OR CHANGES IN CONDITION, PATIENT STATES UNDERSTANDING. </paragraph><paragraph></paragraph><paragraph>LISETTE ALAMO LPN</paragraph> Encounters Start Date/Time End Date/Time Encounter Type Admission Type Attending [facility] Facility Care Department Encounter ID Discharge Date Discharge Status Discharge Condition Discharge Reason Percent Goals Met 2025-04-18 00:00:00 2025-06-16 00:00:00 Outpatient NEW ADMISSION MILLIE JAEGER [facility] [id number] 19.23
--- OUTSIDE RECORDS SUMMARY | 2025-06-15 20:00 | XMS_ITS | Clinical Summary ---
Author Organization Unknown Care Team Providers Care Hair Assistant Name Role Phone BRYANNA COUCH DO Unavailable Unavailable MIL ADAN, MILLIE Unavailable Unavailable Payers Payer Name Policy Type Policy Number Effective Date Expira tion Date [place] [id number] Problems Condition Name Condition Details Condition Category [...] MAINTAIN SITUATIONAL AWARENESS AND WILL NOTIFY CLINICAL APRON MAN AND PHYSICIAN/PROVIDER WITH ANY CHANGE IN CONDITION. [code = SKILLED NURSE TO PERFORM ENVIRONMENTAL SAFETY RISK ASSESSMENT AND FALL RISK ASSESSMENT AND PROVIDE INSTRUCTION TO IMPLEMENT ENVIRONMENTAL SAFETY AND FALL PREVENTION STRATEGIES THROUGHOUT THE CERTIFICATION PERIOD. SKILLED NURSE WILL MAINTAIN SITUATIONAL AWARENESS AND WILL NOTIFY CLINICAL APRON MAN AND PHYSICIAN/PROVIDER WITH ANY CHANGE IN CONDITION.] [...] CARE WILL BE ESTABLISHED THAT MEETS PATIENT'S FCI NEEDS AND INCLUDES PATIENT GOAL FOR HOME [...] NEXT VISIT. PT AGREEABLE TO VISIT.</paragraph><paragraph></paragraph><paragraph>CALL TO [employer] TO ORDER NS, GAUZE, AND ABD PADS. CONFIRMATION NUMBER [id number]</paragraph><paragraph></paragraph><paragraph>EDUCATION: S/S OF INFECTION TO MONITOR FOR AT [...] End Date/Time Encounter Type Admission Type Attending [facility] Facility Care Department Encounter ID Discharge Date Discharge Status Discharge Condition Discharge Reason Percent Goals Met 2025-04-18 00:00:00 2025-06-16 00:00:00 Outpatient NEW ADMISSION MILLIE JAEGER [facility] [id number] 19.23
== END 2025-04-23 10:19 | disposition home or self-care (01) ==
LOC: HO.LAB 10:18
PROVIDERS: PCP Nurse Practitioner Gerontology; Visit Provider Nurse Practitioner Family
DX: Z12.5 Encounter for screening for malignant neoplasm of prostate (principal); R33.8 Other retention of urine; N40.1 Benign prostatic hyperplasia with lower urinary tract symptoms
CPT/HCPCS: 36415; 84153

== ENCOUNTER 2025-05-05 08:37 | Outpatient (AMB) | payer MEDICARE, MEDICAID, SELFPAY ==
--- NOTE | 2025-05-05 08:42 | MHC.OFFVIS ---
Intake Visit Reasons: 3m follow up/ PSA/US Intake Note: patient presents today for: 3mo follow up/PSA/US urology medications: finasteride, tadalafil, tamsulosin blood thinners: none CT done: 04/10/25 US done: 04/05/25 labs done 04/23/25: PSA 4.71 today's PVR: 48mls Venetian Blind Cleaner Required: No Accompanied by: Self / Same As Patient Allergies No Known Allergies Allergy (Verified 05/05/25 08:44) HPI Comments Details: Rancho is a pleasant male. He is a patient of . He is seen for the following urologic conditions - incomplete bladder emptying with urinary retention Current PVR 50 cc. PSA 4.7 Notes retrograde ejaculation with tamsulosin We will switch to alfuzosin Follow-up six-month repeat PSA Urinary retention Consult [facility] Urinary retention with Fuentes catheter Started on finasteride and tamsulosin PFSH Medical History Right upper quadrant pain Partial small bowel obstruction BPH (benign prostatic hyperplasia) Hypertension Upper GI bleed SCHULTZ (nonalcoholic steatohepatitis) Erectile dysfunction Chronic hepatitis C virus genotype 1a infection Surgical History History of esophagogastroduodenoscopy (EGD) History of pancreatectomy Hx of splenectomy Social History Household Members: Family Housing: House Are you a primary career developer to a significant other at home: No Do you presently have visiting nurse or other home services: No Comment: bilateral wrist restraints for airway safety Patient Tobacco Use Status: Former Tobacco user service: Yes Review of Systems Const Denies chills and Denies fever(s) Card Reports no additional complaints and Denies syncope Resp Denies cough GI Denies abdominal pain and Denies heartburn Reports as per HPI and Denies change in libido Neuro Denies syncope Psych Denies change in libido Endo Denies change in libido Physical Exam Const General: cooperative, healthy appearing, comfortable and no acute distress Orientation/consciousness: patient oriented x3 HEENT Face and sinus: Yes normal facial exam Mouth: moist mucous membranes Neck Neck: Yes normal visual inspection, Yes full ROM and Yes trachea midline Chest Chest palpation & inspection: normal inspection of the chest Resp Effort & Inspection: normal respiratory effort, able to speak in complete sentences and no respiratory distress GI Inspection: Yes normal to inspection Back/Spine/Pelvis Cervical Spine: normal cervical lordosis Thoracic/Lumbar Spine: thoracic and lumbar spine normal to inspection Skin General skin exam: no rashes or lesions noted Neuro General: patient oriented x3, gait normal, tone normal and moves all extremities Extrem General: Yes normal to inspection and Yes capillary refill normal Assessment & Plan Assessment & Plan (1) Elevated PSA: Code(s): R97.20 - Elevated prostate specific antigen [PSA] Category: Medical (2) Bladder outlet obstruction: Code(s): N32.0 - Bladder-neck obstruction Category: Medical (3) Weak urinary stream: Code(s): R39.12 - Poor urinary stream Category: Medical Plan Six-month follow-up PSA Trial alfuzosin Orders: Orders PSA,Total (Free>4and<10) 6 Months R97.20 - Elevated prostate specific antigen [PSA] Medications: New alfuzosin ER 10 mg PO DAILY 90 tabs 1RF 90 days R97.20 - Elevated prostate specific antigen [PSA] Discontinued tamsulosin Discontinued Reason: Doctor's Order 0.4 mg PO BEDTIME 30 caps 2RF Patient Instructions: This note is constructed using voice recognition software. While every effort has been made to ensure accuracy imaging center manager errors may have been included. Imaging studies, laboratory and physical exam results were discussed and reviewed in detail. No major barriers to patient understanding were identified. An opportunity to ask questions regarding the treatment plan was provided. All questions were answered. The patient expressed understanding and agreement with the above treatment plan. The patient is aware they should contact our office by phone for worsening of their current condition or the appearance of new urologic symptoms. Compliance is encouraged with any medications and followup testing that is ordered. It is a privilege to participate in the urologic care of your patient. If you have any questions or concerns regarding treatment for the above conditions, or other urologic issues, please do not hesitate to contact me. The office telephone contact is [phone]. Sincerely, Dr Flash Duckworth MD, [facility] - Urology Compassionate Specialist Care for the Genitourinary System Coding Level of Care Code Est Pt Level 4 (76176) Complex EM visit Add On G2211 Diagnoses Elevated PSA R97.20 Bladder outlet obstruction N32.0 Weak urinary stream R39.12
--- OUTSIDE RECORDS SUMMARY | 2025-05-05 09:57 | XMS_ITS | Encounter Summary ---
Author Organization [employer] Address [address] [facility] [address] [place] [address] Care Team Providers Care Supervisor Game Farm Name Role Phone Unavailable Primary Care Provider Unavailabl e Encounter Details Date Type Department Care Team (Latest Contact Info) Description 11/24/2020 Abstract [facility] CONVERSIONS Dental, Provider, DDS Social History Tobacco Use Types Packs/Day Years Used Date Smoking Tobacco: Never Assessed Sex and Gender Information Value Date Recorded Sex Assigned at Male 06/25/2022 10:14 AM EDT Legal Sex Male 10:14 AM EDT Gender Identity Male 06/25/2022 10:14 AM EDT Sexual Orientation Straight 06/25/2022 10 :14 AM EDT documented as of this encounter Plan of Treatment Not on file documented as of this encounter Visit Diagnoses Not on filedocumented in this encounter
--- OUTSIDE RECORDS SUMMARY | 2025-05-05 09:57 | XMS_ITS | Encounter Summary ---
Author Organization [employer] Address [address] [place] [address] Care Team Providers Care Finished Cloth Checker Name Role Phone Unavailable Primary Care Provider Unavailabl e Encounter Details Date Type Department Care Team (Late st Contact Info) Description 04/02/2024 Telephone [facility] ADULT D[facility] [address] [place] [address] Jersey Kenney, MALIK [address] [place] [address] Social History Tobacco Use Types Packs/Day Years [...]
--- OUTSIDE RECORDS SUMMARY | 2025-05-05 09:57 | XMS_ITS | Clinical Summary ---
Author Organization [employer] Address [address] [facility] [address] [place] [address] Care Team Providers Care Cigarette Making Machine Catcher Name Role Phone Unavailable Primary Care Provider Unavailabl e Allergies No known active allergies Medications lisinopril 10 MG tablet Take 10 mg by mouth. 09/30/2023 Active Active Problems Problem Noted Date Diagnosed Date History of hepatitis C 11/04/2024 Overview (11/04/2024): Nov 29, 2017 Entered By: ANDRÉS KUMAR Comment: finished Harvoni tx 08/2017. SVR Dec 05, 2018 Entered By: ZULY STUART Comment: [facility] Gastroenterology services Provider: Rola Elkins Oct 18, [...] Mass Index - - Plan of Treatment Health Maintenance Due Date Last Done Comments [...] (2 - Risk 2-dose series) 11/25/2023 09/30/2023 Dental Oral Exam 04/05/2025 10/05/2024, , 02/10/2015 Dental Prophylaxis 04/05/2025 10/05/2024, 11/24/2020 COVID-19 Vaccine ( season) 2025 02/20/2022, 08/05/2021, 11/19/2020, Additional history exists Influenza Vaccine (#1) 2025 3, 06/08/2020, 06/08/2020, Additional history exists Dental X-Ray: [...]
== END 2025-05-05 09:05 | disposition home or self-care (01) ==
LOC: HO.HUSH 08:37
PROVIDERS: PCP Nurse Practitioner Gerontology; Visit Provider Urology
DX: R97.20 Elevated prostate specific antigen [PSA] (principal); N32.0 Bladder-neck obstruction; R39.12 Poor urinary stream; Z13.9 Encounter for screening, unspecified
CPT/HCPCS: 99214; G2211

== ENCOUNTER → 2025-05-05 08:37 | Outpatient (BNVA) | payer MEDICARE, MEDICAID, SELFPAY | PROVIDERS: PCP Nurse Practitioner Gerontology; Visit Provider Urology | DX: Z48.815 Encounter for surgical aftercare following surgery on the digestive system (principal); Z90.49 Acquired absence of other specified parts of digestive tract; R97.20 Elevated prostate specific antigen [PSA]; N32.0 Bladder-neck obstruction; R39.12 Poor urinary stream | CPT/HCPCS: 51798; 81003; 99212 ==

== ENCOUNTER 2025-05-05 09:11 | Outpatient (AMB) | payer MEDICAID, SELFPAY ==
--- NOTE | 2025-05-05 09:14 | MHC.OFFVIS ---
Vital Signs 05/05/25 09:18 Weight 244 lb BP 108/55 L Blood Pressure Location Rt radial Position Sitting Pulse 83 Intake Visit Reasons: wound check (VNA ? inf) Intake Note: Patient scheduled today's appointment c/o sharp pain feels like stabbing along surgical scar on abdomen. Ibuprofen not helping. Hx: Lap richie w/abscess~ 04-07-2025. Director Of Procurement Required: No Accompanied by: izabella Deluna Allergies No Known Allergies Allergy (Verified 05/05/25 09:20) HPI HPI wound check (VNA ? inf): Details: He had undergone subtotal open cholecystectomy last April 07, 2025. He had been doing well at home. However, he was sent to the office by his visiting nurse because of a painful area of swelling on the lateral aspect of his in incision He has good oral intake. He denies any fever or chills. [facility] Medical History Right upper quadrant pain Partial small bowel obstruction BPH (benign prostatic hyperplasia) Hypertension Upper GI bleed SCHULTZ (nonalcoholic steatohepatitis) Erectile dysfunction Chronic hepatitis C virus genotype 1a infection Surgical History History of esophagogastroduodenoscopy (EGD) History of pancreatectomy Hx of splenectomy Social History Household Members: Family Housing: House Are you a primary acute care clinical nurse specialist to a significant other at home: No Do you presently have visiting nurse or other home services: No Comment: bilateral wrist restraints for airway safety Patient Tobacco Use Status: Former Tobacco user service: Yes Review of Systems Const Denies chills and Denies fever(s) Card Denies chest pain Resp Denies cough GI Denies vomiting Physical Exam Vital Signs: Last Vital Signs Pulse 83 05/05/25 09:18 BP 108/55 L 05/05/25 09:18 Const General: comfortable and no acute distress Eyes Other: Anicteric GI Other: Subcostal incision is well healed but on the lower aspect is note of an area of superficial fluctuance which was also tender Palpation (GI): Soft to palpation, not firm and no guarding Results AMB Urinalysis, Automated UA Leukoctes 0 Beba/uL Last Edit by ASHLEY Morin on 05/05/25 09:14 UA Nitrite Negative Last Edit by Nya Wade, [facility] on 05/05/25 09:14 UA Urobilinogen 0.2 mg/dL Last Edit by Nya Wade, [facility] on 05/05/25 09:14 UA Protein 15 mg/dL Last Edit by Nya Wade, [facility] on 05/05/25 09:14 UA pH 6.0 Last Edit by Nya Wade, [facility] on 05/05/25 09:14 UA Blood 0 Sukhdeep/uL Last Edit by Nya Wade, [facility] on 05/05/25 09:14 UA Specific Venetia 1.015 Last Edit by Nya Wade, [facility] on 05/05/25 09:14 UA Ketone Negative Last Edit by Nya Wade, [facility] on 05/05/25 09:14 UA Bilirubin 0 mg/dL Last Edit by Nya Wade, [facility] on 05/05/25 09:14 UA Glucose 0 mg/dL Last Edit by Nya Wade, [facility] on 05/05/25 09:14 Assessment & Plan Assessment & Plan (1) S/P cholecystectomy: Code(s): Z90.49 - Acquired absence of other specified parts of digestive tract Category: Surgical Plan: He has area of superficial fluctuance on the lateral aspect of the cholecystectomy incision. I open this up using a Q-tip after prepping and seroma fluid was drained I applied dry dressings. I explained to him that he needs to do daily dressing changes every day. This has await the seroma to eventually resolved I told him that she should come back to the office if he continues have any issues or concerns down the line. His daughter was with him during the visit Coding Level of Care Code Global (71308) Diagnoses S/P cholecystectomy Z90.49
[2025-05-05 09:18] VITALS: BP 108/55; PULSE 83
== END 2025-05-05 09:36 | disposition home or self-care (01) ==
LOC: HO.HGS 09:12
PROVIDERS: PCP Nurse Practitioner Gerontology; Visit Provider Surgery
DX: Z90.49 Acquired absence of other specified parts of digestive tract (principal)
CPT/HCPCS: 99024

== ENCOUNTER 2025-05-14 11:29 | Outpatient (AMB) | payer MEDICAID, SELFPAY ==
--- NOTE | 2025-05-14 11:31 | A.OFFVIS_ITS ---
Vital Signs 05/14/25 11:36 Weight 244 lb BP 114/59 L Blood Pressure Location Lt brachial Position Sitting Pulse 82 Intake Visit Reasons: s/p SBO Intake Note: Patient here s/p cholecystectomy. Patient c/o: seroma at lower edge of incision filled up again. Tender to touch. GARRETT: () 05-05-2025 Insurance Inspector Required: No Accompanied by: Self / Same As Patient Allergies No Known Allergies Allergy (Verified 05/14/25 11:37) HPI HPI s/p SBO: Details: overall doing well, only concern is that the previous site of the seroma in the RUQ incision that was previously drained on 05/05 has returned. States it has been causing him pain, it has formed a bubble and is now warm. Otherwise he has been doing well, appetite is good, bowel function at baseline. Denies additional abodminal pain. [facility] Medical History Right upper quadrant pain Partial small bowel obstruction BPH (benign prostatic hyperplasia) Hypertension Upper GI bleed SCHULTZ (nonalcoholic steatohepatitis) Erectile dysfunction Chronic hepatitis C virus genotype 1a infection Surgical History History of esophagogastroduodenoscopy (EGD) History of pancreatectomy Hx of splenectomy Social History Household Members: Family Housing: House Are you a primary manager intensive care unit to a significant other at home: No Do you presently have visiting nurse or other home services: No Comment: bilateral wrist restraints for airway safety Patient Tobacco Use Status: Former Tobacco user service: Yes Physical Exam Vital Signs: Last Vital Signs Pulse 82 05/14/25 11:36 BP 114/59 L 05/14/25 11:36 Const General: comfortable and no acute distress Orientation/consciousness: patient oriented x3 Resp Effort & Inspection: normal respiratory effort and able to speak in complete sentences GI Other: RUQ incision: on the lateral; aspect there is a 3 cm area of fluctuant area that is tender the touch and warm, there was minimal erythema. Inspection: No distended and Yes scar (laparotomy, open GB) Palpation (GI): Soft to palpation and Tenderness to palpation present (GI) (tender only on the lateral aspect of the RUQ incision) Neuro General: patient oriented x3 Assessment & Plan Assessment & Plan (1) S/P cholecystectomy: Code(s): Z90.49 - Acquired absence of other specified parts of digestive tract Category: Medical (2) Seroma of skin or subcutaneous tissue after non-dermatologic procedure: Code(s): L76.34 - Postprocedural seroma of skin and subcutaneous tissue following other procedure Category: Medical Plan 70 year old male s/p open partial cholecystectomy, SBO returning to the office with some concern for return of a seroma in his RUQ incision. He reports he is otherwise doign well, but the area had seemed to fill up with fluid again after Dr. Navas had drained it last weeek. It has become increasingly painful and is now warm to the touch. His abdomen was otherwise soft and benign. There was a painful 3 cm fluctuant area on the lateral aspect of the RUQ incision with associated warmth, minimal erythema. I prepped the area with betadine, and made a small 1 cm incision into this area, which drained a moderate amount of serous fluid. I milked the entirety of the incision to express as much of this as possible. The patient tolerated this well and states that that relieved most of the pressure and pain that he was having. The wound was dressed with gauze and tape. He should continue to change dressings daily while this is draining. He does have [facility] coming who will assist him with this and help keep and eye on the area for further seroma collection. He will return in 2 weeks for follow up. Can reach out sooner with concerns. Coding Level of Care Code Global (32355) Diagnoses S/P cholecystectomy Z90.49 Seroma of skin or subcutaneous tissue after non-dermatologic procedure L76.34
[2025-05-14 11:36] VITALS: BP 114/59; PULSE 82
--- OUTSIDE RECORDS SUMMARY | 2025-05-14 12:05 | XMS_ITS | Encounter Summary ---
Author Organization [employer] Address [address] [place] [address] Care Team Providers Care Grain Cleaner And Transfer Operator Name Role Phone Unavailable Primary Care Provider Unavailabl e Encounter Details Date Type Department Care Team (Late st Contact Info) Description 04/02/2024 Telephone [facility] [address] [place] [address] [place] Kenney, MALIK [address] [place] [address] Social History Tobacco Use Types Packs/Day Years [...]
--- OUTSIDE RECORDS SUMMARY | 2025-05-14 12:05 | XMS_ITS | Clinical Summary ---
Author Organization [employer] Address [address] [place] [address] Care Team Providers Care Manager Wealth Management Name Role Phone Unavailable Primary Care Provider Unavailabl e Allergies No known active allergies Medications lisinopril 10 MG tablet Take 10 mg by mouth. 09/30/2023 Active Active Problems Problem Noted Date Diagnosed Date History of hepatitis C 11/04/2024 Overview (11/04/2024): Nov 29, 2017 Entered By: ANDRÉS KUMAR Comment: finished Harvoni tx 08/2017. SVR Dec 05, 2018 Entered By: ZULY STUART Comment: [facility] Gastroenterology services Provider: Rola Elkins Oct 18, [...]
--- OUTSIDE RECORDS SUMMARY | 2025-05-14 12:05 | XMS_ITS | Encounter Summary ---
Author Organization [email or web address] Address [address] [place] [address] Care Team Providers Care Investigator Welfare Name Role Phone Unavailable Primary Care Provider [...]
--- OUTSIDE RECORDS SUMMARY | 2025-06-15 20:00 | XMS_ITS | Clinical Summary ---
Author Organization Unknown Care Team Providers Care Treater Name Role Phone BRYANNA COUCH DO Unavailable Unavailable MIL RN, MILLIE Unavailable Unavailable SHERRI PT, KAYLAN Unavailable Unavailable Payers Payer Name Policy Type Policy Number Effective Date Expira tion Date [place] [id number] Problems Condition Name Condition Details Condition Category [...] (SIG) Comments Components lisinopril 30 mg tablet - 00:00: 00 Yes [id number] 1 tablet DAILY 1 tablet DAILY (route: oral) Med Classific ation: Cardiovas cular Therapy Agents amlodipine 10 mg tablet 2025-0 8-15 00:00: 00 Yes [id number] 1 tablet DAILY 1 tablet DAILY (route: oral) Med Classific ation: Cardiovas cular Therapy Agents ibuprofen 600 mg tablet 8-15 00:00: 00 Yes [id number] 1 tablet EVERY 6 HOURS 1 tablet EVERY 6 HOURS (route: oral) Med Classific ation: Analgesic , Anti-infl ammatory or Antipyret ic oxycodone-a cetaminophe n 5 mg-325 mg tablet -15 00:00: 00 Yes [id number] 1 tablet EVERY 6 HOURS 1 tablet EVERY 6 HOURS (route: oral) Med Classific ation: Analgesic , Anti-infl ammatory or Antipyret ic tamsulosin 0.4 mg capsule 1-06 00:00: 00 Yes [id number] 1 capsule BEDTIME 1 capsule BEDTIME (route: oral) Med Classific ation: Genitouri nary Therapy ferrous gluconate 324 mg (37.5 mg iron) tablet 2023-08 2- 00:00: 00 Yes [id number] 1 tablet DAILY 1 tablet DAILY (route: oral) Med Classific ation: Electroly te Balance-N utritiona l Products finasteride 5 mg tablet 1-07 00:00: 00 Yes [id number] 1 tablet DAILY 1 tablet DAILY (route: oral) Med Classific ation: Genitouri nary Therapy metoprolol succinate ER 50 mg tablet,exte nded release 24 hr 2023-08 2-10 00:00: 00 Yes [id number] 1 tablet DAILY 1 tablet DAILY (route: oral) Med Classific ation: Cardiovas cular Therapy Agents Miralax 17 gram/dose oral powder 8-21 00:00: 00 Yes [id number] 17 gram DAILY 17 gram DAILY (route: oral) Med Classific ation: Gastroint estinal Therapy Agents omeprazole 40 mg capsule,del ayed release 1-06 00:00: 00 Yes [id number] 1 capsule DAILY 1 capsule DAILY (route: oral) Med Classific ation: Gastroint estinal Therapy Agents Simbrinza 1 %-0.2 % eye drops,suspe nsion 2023-08 2- 00:00: 00 Yes [id number] 1 drops 2 TIMES DAILY 1 drops 2 TIMES DAILY (route: ophthalmic (eye)) Med Classific ation: Ophthalmi c Agents Vital Signs Vital Name Observation Time Observation Value Commen ts Temperature 2025-05-11 09:34:00.000 97 [degF] Temperature 2025-05-07 10:12:00.000 98 [degF] Temperature 2025-05-04 15:03:00.000 98.3 [degF] Temperature 2025-05-04 13:49:00.000 97.9 [degF] Temperature 2025-04-30 09:11:00.000 98.6 [degF] Temperature 2025-04-27 14:40:00.000 97.4 [degF] Temperature 2025-04-27 10:10:00.000 98.7 [degF] Temperature 2025-04-23 13:23:00.000 98 [degF] Temperature 2025-04-20 09:08:00.000 98.2 [degF] Temperature 2025-04-18 14:16:00.000 97.8 [degF] BMI (%) 2025-04-18 14:16:00.000 34 kg/m2 Height 2025-04-18 14:16:00.000 72 [in_us] Pulse 2025-05-11 09:34:00.000 70 /min Pulse 2025-05-07 10:12:00.000 74 /min Pulse 2025-05-04 15:03:00.000 82 /min Pulse 2025-05-04 13:49:00.000 90 /min Pulse 2025-04-30 09:11:00.000 87 /min Pulse 2025-04-27 14:40:00.000 82 /min Pulse 2025-04-27 10:10:00.000 72 /min Pulse 2025-04-23 13:23:00.000 82 /min Pulse 2025-04-20 09:08:00.000 89 /min Pulse 2025-04-18 14:16:00.000 79 /min O2 Saturation (%) 2025-05-11 09:34:00.000 97 % [...] Saturation (%) 2025-04-18 14:16:00.000 97 % Respirations 2025-05-11 09:34:00.000 18 /min Respirations 2025-05-07 10:12:00.000 20 /min Respirations 2025-05-04 13:49:00.000 18 /min Respirations 2025-04-30 09:11:00.000 18 /min Respirations 2025-04-27 14:40:00.000 18 /min Respirations 2025-04-27 10:10:00.000 18 /min Respirations 2025-04-23 13:23:00.000 18 /min Respirations 2025-04-20 09:08:00.000 18 /min Respirations 2025-04-18 14:16:00.000 18 /min Weight (lbs) 2025-04-18 14:16:00.000 255 [lb_av] Systolic Blood Pressure 2025-05-11 09:34:00.000 134 mm [...] 14:16:00.000 145 mm [Hg] Diastolic Blood Pressure 2025-05-11 09:34:00.000 [...] MAINTAIN SITUATIONAL AWARENESS AND WILL NOTIFY CLINICAL ENGRAVER TENDER AND PHYSICIAN/PROVIDER WITH ANY CHANGE IN CONDITION. [code = SKILLED NURSE TO PERFORM ENVIRONMENTAL SAFETY RISK ASSESSMENT AND FALL RISK ASSESSMENT AND PROVIDE INSTRUCTION TO IMPLEMENT ENVIRONMENTAL SAFETY AND FALL PREVENTION STRATEGIES THROUGHOUT THE CERTIFICATION PERIOD. SKILLED NURSE WILL MAINTAIN SITUATIONAL AWARENESS AND WILL NOTIFY CLINICAL ENGRAVER TENDER AND PHYSICIAN/PROVIDER WITH ANY CHANGE IN CONDITION.] [...] CARE WILL BE ESTABLISHED THAT MEETS PATIENT'S SHELTER NEEDS AND INCLUDES PATIENT GOAL FOR HOME [...] Notes Progress Notes <paragraph>[Visit Date: 2024 by MILLIE JAEGER RN]:</paragraph><paragraph>SNV</paragraph><paragraph></paragraph><paragraph>ABNO RMAL VITALS: WNL</paragraph><paragraph></paragraph><paragraph>FALLS: N</paragraph><paragraph></paragraph><paragraph>PHYSICAL ASSESSMENT FINDINGS: PT AWAKE AND ALERT VS WNL AFEBRILE LUNGS CTA SPEAKING IN FULL SENTENCES NAD NOTED ABD SNT POS BS DENIES PROBLEMS WITH WITH OR BLADDER APPETITE GOOD. R ABD INCISON IS CLOSED. NOTED WITH FLUID POCKET FORMING ON INCISION AGAIN. NO REDNESS NO TENDERNESS. DR COLLINS DRAINED THIS AREA LAST WEEK. WAS TOLD TO CALL IF FLUID POCKET RETURNED. CALL TO DR COLLINS. PT WILL SEE HIM SATURDAY TO EVAL POCKET.</paragraph><paragraph></paragraph><paragraph>MEDICATION CHANGES: NO CHANGES </paragraph><paragraph></paragraph><paragraph>HANDS ON CARE: ASSESSMENT TEACHING </paragraph><paragraph></paragraph><paragraph>TEACHING PROVIDED: INFECTION CONTROL NOT TO TRY TO POP FLUID POCKET. </paragraph><paragraph></paragraph><paragraph>PATIENT/CAREGIVER TEACH BACK: VERBALIZED UNDERSTANDING </paragraph><paragraph></paragraph><paragraph>NEXT APPOINTMENT: [facility] SURGEON </paragraph><paragraph></paragraph><paragraph>NEW ORDERS: N</paragraph><paragraph></paragraph><paragraph>INSTRUCTED PATIENT AND CAREGIVER TO CALL [facility] WITH ANY QUESTIONS OR CHANGES IN CONDITION</paragraph> Encounters Start Date/Time End Date/Time Encounter Type Admission Type Attending [facility] Facility Care Department Encounter ID Discharge Date Discharge Status Discharge Condition Discharge Reason Percent Goals Met 2025-04-18 00:00:00 2025-06-16 00:00:00 Outpatient NEW ADMISSION MILLIE JAEGER [facility] [id number] 41.18
== END 2025-05-14 11:47 | disposition home or self-care (01) ==
LOC: HO.HGS 11:30
PROVIDERS: PCP Nurse Practitioner Gerontology
DX: Z90.49 Acquired absence of other specified parts of digestive tract (principal); L76.34 Postprocedural seroma of skin and subcutaneous tissue following other procedure
CPT/HCPCS: 99024

== ENCOUNTER → 2025-05-14 11:29 | Outpatient (BNVA) | payer MEDICAID, SELFPAY | PROVIDERS: PCP Nurse Practitioner Gerontology | DX: L76.34 Postprocedural seroma of skin and subcutaneous tissue following other procedure (principal); K56.600 Partial intestinal obstruction, unspecified as to cause; Z90.49 Acquired absence of other specified parts of digestive tract | CPT/HCPCS: 99212 ==

== ENCOUNTER 2025-05-26 09:33 | Outpatient (AMB) | payer MEDICAID, SELFPAY ==
--- OUTSIDE RECORDS SUMMARY | 2025-05-24 20:00 | XMS_ITS | Clinical Summary ---
Author Organization Unknown Care Team Providers Care Loading Rack Supervisor Name Role Phone COUCH DO, BRYANNA Unavailable Unavailable MIL RN, MILLIE Unavailable Unavailable SHERRI PT, KAYLAN Unavailable Unavailable AKTHLEEN RN, JACQUES Unavailable Unavailable Payers Payer Name Policy Type Policy Number Effective Date Expira tion Date MEDICARE - NGS [place] - PD [id number] Problems Condition Name Condition Details Condition Category Status Onset Date Resolution Date Last Treatment Date Treating Clinician Comments ENCNTR FOR SURGICAL AFTCR FOLLOWING SURGERY ON THE DGSTV SYS Active 08-26 00:00: 00 ACUTE CHOLECYSTITI S Active 08-26 00:00: 00 ESSENTIAL (PRIMARY) HYPERTENSION Active 08-26 00:00: 00 BENIGN PROSTATIC HYPERPLASIA WITHOUT LOWER URINRY TRACT SYMP Active 08-26 00:00: 00 PERSONAL HISTORY OF COVID-19 Active 08-26 00:00: 00 UNSPECIFIED GLAUCOMA Active 08-26 00:00: 00 OBESITY, UNSPECIFIED Active 08-26 00:00: 00 BODY MASS INDEX [BMI]30.0-30 .9, ADULT Active 08-26 00:00: 00 MALE ERECTILE DYSFUNCTION, UNSPECIFIED Active 08-26 00:00: 00 Allergies, Adverse Reactions, Alerts Allergy Name Allergy Type Status Severity Reaction(s) Onset Date Inactive Date Treating Clinician Comments NKA Propensity to adverse reactions Active 2025-03 21:13:5 5 Medications Ordered Medication Name Filled Medication Name Start Date Stop Date Current Medication? Ordering Clinician Indication Dosage Frequency Signature (SIG) Comments Components lisinopril 30 mg tablet 04-14 00:00: 00 Yes [id number] 1 tablet DAILY 1 tablet DAILY (route: oral) Med Classific ation: Cardiovas cular Therapy Agents amlodipine 10 mg tablet 15 00:00: 00 Yes [id number] 1 tablet DAILY 1 tablet DAILY (route: oral) Med Classific ation: Cardiovas cular Therapy Agents ibuprofen 600 mg tablet 15 00:00: 00 Yes [id number] 1 tablet EVERY 6 HOURS 1 tablet EVERY 6 HOURS (route: oral) Med Classific ation: Analgesic , Anti-infl ammatory or Antipyret ic oxycodone-a cetaminophe n 5 mg-325 mg tablet 04-09 00:00: 00 Yes [id number] 1 tablet EVERY 6 HOURS 1 tablet EVERY 6 HOURS (route: oral) Med Classific ation: Analgesic , Anti-infl ammatory or Antipyret ic tamsulosin 0.4 mg capsule 1-06 00:00: 00 Yes [id number] 1 capsule BEDTIME 1 capsule BEDTIME (route: oral) Med Classific ation: Genitouri nary Therapy ferrous gluconate 324 mg (37.5 mg iron) tablet 2023-08 2- 00:00: 00 Yes [id number] 1 tablet DAILY 1 tablet DAILY (route: oral) Med Classific ation: Electroly te Balance-N utritiona l Products finasteride 5 mg tablet 1-07 00:00: 00 Yes [id number] 1 tablet DAILY 1 tablet DAILY (route: oral) Med Classific ation: Genitouri nary Therapy metoprolol succinate ER 50 mg tablet,exte nded release 24 hr 2023-08 2-10 00:00: 00 Yes [id number] 1 tablet DAILY 1 tablet DAILY (route: oral) Med Classific ation: Cardiovas cular Therapy Agents Miralax 17 gram/dose oral powder 8-21 00:00: 00 Yes [id number] 17 gram DAILY 17 gram DAILY (route: oral) Med Classific ation: Gastroint estinal Therapy Agents omeprazole 40 mg capsule,del ayed release 1-06 00:00: 00 Yes [id number] 1 capsule DAILY 1 capsule DAILY (route: oral) Med Classific ation: Gastroint estinal Therapy Agents Simbrinza 1 %-0.2 % eye drops,suspe nsion 2023-08 2- 00:00: 00 Yes [id number] 1 drops 2 TIMES DAILY 1 drops 2 TIMES DAILY (route: ophthalmic (eye)) Med Classific ation: Ophthalmi c Agents Vital Signs Vital Name Observation Time Observation Value Commen ts Temperature 2025-05-25 09:33:00.000 97.8 [degF] Temperature 2025-05-18 09:05:00.000 97.9 [degF] Temperature 2025-05-14 09:02:00.000 98.5 [degF] Temperature 2025-05-12 13:35:00.000 96.7 [degF] Temperature 2025-05-11 09:34:00.000 97 [degF] Temperature 2025-05-07 10:12:00.000 98 [degF] Temperature 2025-05-04 15:03:00.000 98.3 [degF] Temperature 2025-05-04 13:49:00.000 97.9 [degF] Temperature 2025-04-30 09:11:00.000 98.6 [degF] Temperature 2025-04-27 14:40:00.000 97.4 [degF] Temperature 2025-04-27 10:10:00.000 98.7 [degF] Temperature 2025-04-23 13:23:00.000 98 [degF] Temperature 2025-04-20 09:08:00.000 98.2 [degF] Temperature 2025-04-18 14:16:00.000 97.8 [degF] BMI (%) 2025-04-18 14:16:00.000 34 kg/m2 Height 2025-04-18 14:16:00.000 72 [in_us] Pulse 2025-05-25 09:33:00.000 80 /min Pulse 2025-05-18 09:05:00.000 86 /min Pulse 2025-05-14 09:02:00.000 82 /min Pulse 2025-05-12 13:35:00.000 70 /min Pulse 2025-05-11 09:34:00.000 70 /min Pulse 2025-05-07 10:12:00.000 74 /min Pulse 2025-05-04 15:03:00.000 82 /min Pulse 2025-05-04 13:49:00.000 90 /min Pulse 2025-04-30 09:11:00.000 87 /min Pulse 2025-04-27 14:40:00.000 82 /min Pulse 2025-04-27 10:10:00.000 72 /min Pulse 2025-04-23 13:23:00.000 82 /min Pulse 2025-04-20 09:08:00.000 89 /min Pulse 2025-04-18 14:16:00.000 79 /min O2 Saturation (%) 2025-05-25 09:33:00.000 98 % O2 Saturation (%) 2025-05-18 09:05:00.000 96 % O2 Saturation (%) 2025-05-14 09:02:00.000 96 % O2 Saturation (%) 2025-05-12 13:35:00.000 98 % O2 Saturation (%) 2025-05-11 09:34:00.000 97 % O2 Saturation (%) 2025-05-07 10:12:00.000 100 % O2 Saturation (%) 2025-05-04 15:03:00.000 98 % O2 Saturation (%) 2025-05-04 13:49:00.000 95 % O2 Saturation (%) 2025-04-30 09:11:00.000 97 % O2 Saturation (%) 2025-04-27 14:40:00.000 98 % O2 Saturation (%) 2025-04-27 10:10:00.000 96 % O2 Saturation (%) 2025-04-23 13:23:00.000 98 % O2 Saturation (%) 2025-04-20 09:08:00.000 96 % O2 Saturation (%) 2025-04-18 14:16:00.000 97 % Respirations 2025-05-25 09:33:00.000 20 /min Respirations 2025-05-18 09:05:00.000 18 /min Respirations 2025-05-14 09:02:00.000 18 /min Respirations 2025-05-12 13:35:00.000 20 /min Respirations 2025-05-11 09:34:00.000 18 /min Respirations 2025-05-07 10:12:00.000 20 /min Respirations 2025-05-04 13:49:00.000 18 /min Respirations 2025-04-30 09:11:00.000 18 /min Respirations 2025-04-27 14:40:00.000 18 /min Respirations 2025-04-27 10:10:00.000 18 /min Respirations 2025-04-23 13:23:00.000 18 /min Respirations 2025-04-20 09:08:00.000 18 /min Respirations 2025-04-18 14:16:00.000 18 /min Weight (lbs) 2025-04-18 14:16:00.000 255 [lb_av] Systolic Blood Pressure 2025-05-25 09:33:00.000 124 mm [Hg] Systolic Blood Pressure 2025-05-18 09:05:00.000 130 mm [Hg] Systolic Blood Pressure 2025-05-14 09:02:00.000 118 mm [Hg] Systolic Blood Pressure 2025-05-12 13:35:00.000 120 mm [Hg] Systolic Blood Pressure 2025-05-11 09:34:00.000 134 mm [Hg] Systolic Blood Pressure 2025-05-07 10:12:00.000 150 mm [Hg] Systolic Blood Pressure 2025-05-04 15:03:00.000 118 mm [Hg] Systolic Blood Pressure 2025-05-04 13:49:00.000 126 mm [Hg] Systolic Blood Pressure 2025-04-30 09:11:00.000 136 mm [Hg] Systolic Blood Pressure 2025-04-27 14:40:00.000 124 mm [Hg] Systolic Blood Pressure 2025-04-27 10:10:00.000 122 mm [Hg] Systolic Blood Pressure 2025-04-23 13:23:00.000 122 mm [Hg] Systolic Blood Pressure 2025-04-20 09:08:00.000 132 mm [Hg] Systolic Blood Pressure 2025-04-18 14:16:00.000 145 mm [Hg] Diastolic Blood Pressure 2025-05-25 09:33:00.000 68 mm [Hg] Diastolic Blood Pressure 2025-05-18 09:05:00.000 64 mm [Hg] Diastolic Blood Pressure 2025-05-14 09:02:00.000 60 mm [Hg] Diastolic Blood Pressure 2025-05-12 13:35:00.000 80 mm [Hg] Diastolic Blood Pressure 2025-05-11 09:34:00.000 64 mm [Hg] Diastolic Blood Pressure 2025-05-07 10:12:00.000 82 mm [Hg] Diastolic Blood Pressure 2025-05-04 15:03:00.000 72 mm [Hg] Diastolic Blood Pressure 2025-05-04 13:49:00.000 82 mm [Hg] Diastolic Blood Pressure 2025-04-30 09:11:00.000 70 mm [Hg] Diastolic Blood Pressure 2025-04-27 14:40:00.000 78 mm [Hg] Diastolic Blood Pressure 2025-04-27 10:10:00.000 76 mm [Hg] Diastolic Blood Pressure 2025-04-23 13:23:00.000 70 mm [Hg] Diastolic Blood Pressure 2025-04-20 09:08:00.000 64 mm [Hg] Diastolic Blood Pressure 2025-04-18 14:16:00.000 80 mm [Hg] Plan of Treatment Planned Activity Planned Date Details Comments Future Scheduled Test SKILLED NU RSE TO EVALUATE PATIENT, IDENTIFY PRIMARY AND CO-MORBID CONDITIONS CODED PER CODING GUIDELINES, AND DEVELOP PATIENT SPECIFIC PLAN OF CARE THAT INCLUDES PATIENT GOAL FOR HOME HEALTH. [code = SKILLED NURSE TO EVALUATE PATIENT, IDENTIFY PRIMARY AND CO-MORBID CONDITIONS CODED PER CODING GUIDELINES, AND DEVELOP PATIENT SPECIFIC PLAN OF CARE THAT INCLUDES PATIENT GOAL FOR HOME HEALTH.] Future Scheduled Test SKILLED NU RSE TO REVIEW PATIENT MEDICATIONS (PRESCRIPTION/OTC). INSTRUCT PATIENT/CAREGIVER ON ALL MEDICATIONS INCLUDING PURPOSE, WHEN TO TAKE, IMPORTANCE OF MEDICATION ADHERENCE, MONITORING OF EFFECTIVENESS, ADVERSE DRUG REACTIONS, POSSIBLE SIDE EFFECTS, AND WHEN TO NOTIFY AGENCY OR PHYSICIAN/PROVIDER OF ANY CONCERNS. [code = SKILLED NURSE TO REVIEW PATIENT MEDICATIONS (PRESCRIPTION/OTC). INSTRUCT PATIENT/CAREGIVER ON ALL MEDICATIONS INCLUDING PURPOSE, WHEN TO TAKE, IMPORTANCE OF MEDICATION ADHERENCE, MONITORING OF EFFECTIVENESS, ADVERSE DRUG REACTIONS, POSSIBLE SIDE EFFECTS, AND WHEN TO NOTIFY AGENCY OR PHYSICIAN/PROVIDER OF ANY CONCERNS.] Future Scheduled Test PATIENT DIAZ S A RISK OF HOSPITALIZATION AND ED USE. SKILLED NURSE TO ESTABLISH SUPPORT MEASURES TO MINIMIZE RISK OF HOSPITALIZATION AND ED USE, AND INSTRUCT PATIENT/CAREGIVER ON METHODS TO REDUCE AVOIDABLE HOSPITALIZATION AND ED USE. [code = PATIENT HAS A RISK OF HOSPITALIZATION AND ED USE. SKILLED NURSE TO ESTABLISH SUPPORT MEASURES TO MINIMIZE RISK OF HOSPITALIZATION AND ED USE, AND INSTRUCT PATIENT/CAREGIVER ON METHODS TO REDUCE AVOIDABLE HOSPITALIZATION AND ED USE.] Future Scheduled Test SKILLED NU RSE TO PROVIDE INSTRUCTION TO PATIENT/CAREGIVER RELATED TO DISCHARGE PLANNING. [code = SKILLED NURSE TO PROVIDE INSTRUCTION TO PATIENT/CAREGIVER RELATED TO DISCHARGE PLANNING.] Future Scheduled Test SKILLED NU RSE TO PERFORM ENVIRONMENTAL SAFETY RISK ASSESSMENT AND FALL RISK ASSESSMENT AND PROVIDE INSTRUCTION TO IMPLEMENT ENVIRONMENTAL SAFETY AND FALL PREVENTION STRATEGIES THROUGHOUT THE CERTIFICATION PERIOD. SKILLED NURSE WILL MAINTAIN SITUATIONAL AWARENESS AND WILL NOTIFY CLINICAL SURVEY TECHNICIAN AND PHYSICIAN/PROVIDER WITH ANY CHANGE IN CONDITION. [code = SKILLED NURSE TO PERFORM ENVIRONMENTAL SAFETY RISK ASSESSMENT AND FALL RISK ASSESSMENT AND PROVIDE INSTRUCTION TO IMPLEMENT ENVIRONMENTAL SAFETY AND FALL PREVENTION STRATEGIES THROUGHOUT THE CERTIFICATION PERIOD. SKILLED NURSE WILL MAINTAIN SITUATIONAL AWARENESS AND WILL NOTIFY CLINICAL SURVEY TECHNICIAN AND PHYSICIAN/PROVIDER WITH ANY CHANGE IN CONDITION.] Future Scheduled Test SKILLED NU RSE FOR OBSERVATION AND ASSESSMENT OF PATIENT S PAIN LEVEL AND EFFECTIVENESS OF PAIN MANAGEMENT REGIMEN. SKILLED NURSE TO INSTRUCT PATIENT/CAREGIVER REGARDING PHARMACOLOGIC AND NON-PHARMACOLOGIC PAIN CONTROL MEASURES. SKILLED NURSE TO REPORT TO PHYSICIAN IF PAIN LEVEL IS OUTSIDE OF ESTABLISHED PARAMETERS. [code = SKILLED NURSE FOR OBSERVATION AND ASSESSMENT OF PATIENT S PAIN LEVEL AND EFFECTIVENESS OF PAIN MANAGEMENT REGIMEN. SKILLED NURSE TO INSTRUCT PATIENT/CAREGIVER REGARDING PHARMACOLOGIC AND NON-PHARMACOLOGIC PAIN CONTROL MEASURES. SKILLED NURSE TO REPORT TO PHYSICIAN IF PAIN LEVEL IS OUTSIDE OF ESTABLISHED PARAMETERS.] Future Scheduled Test SKILLED NU RSE TO ASSESS PATIENT'S SKIN INTEGRITY AND INSTRUCT PATIENT/CAREGIVER ON MEASURES TO PREVENT PRESSURE ULCERS. [code = SKILLED NURSE TO ASSESS PATIENT'S SKIN INTEGRITY AND INSTRUCT PATIENT/CAREGIVER ON MEASURES TO PREVENT PRESSURE ULCERS.] Future Scheduled Test SKILLED NU RSE TO PROVIDE TEACHING ON SIGNS AND SYMPTOMS AND MANAGEMENT OF HYPERTENSION. [code = SKILLED NURSE TO PROVIDE TEACHING ON SIGNS AND SYMPTOMS AND MANAGEMENT OF HYPERTENSION.] Future Scheduled Test PRN [facility]UA L VISITS MAY BE PERFORMED UTILIZING TELECOMMUNICATIONS SYSTEM TO OPTIMIZE SKILLED SERVICES FURNISHED ON THE PLAN OF CARE. SKILLED NURSE TO ESTABLISH SUPPORT MEASURES TO MINIMIZE RISK OF REHOSPITALIZATION, AND INSTRUCT PATIENT/CAREGIVER ON METHODS TO REDUCE AVOIDABLE HOSPITALIZATION. [code = PRN VIRTUAL VISITS MAY BE PERFORMED UTILIZING TELECOMMUNICATIONS SYSTEM TO OPTIMIZE SKILLED SERVICES FURNISHED ON THE PLAN OF CARE. SKILLED NURSE TO ESTABLISH SUPPORT MEASURES TO MINIMIZE RISK OF REHOSPITALIZATION, AND INSTRUCT PATIENT/CAREGIVER ON METHODS TO REDUCE AVOIDABLE HOSPITALIZATION.] Future Scheduled Test SKILLED NU RSE FOR O/A, TEACHING RELATED TO ACUTE CHOLECYSTIS S/P OPEN CHOLECYSTECTOMY FOR EARLY IDENTIFICATION OF EXACERBATION OF DISEASE PROCESS. SKILLED NURSE FOR O/A, TEACHING RELATED TO PARTIAL SMALL BOWEL OBSTRUCTIONFOR EARLY IDENTIFICATION OF EXACERBATION OF DISEASE PROCESS. [code = SKILLED NURSE FOR O/A, TEACHING RELATED TO ACUTE CHOLECYSTIS S/P OPEN CHOLECYSTECTOMY FOR EARLY IDENTIFICATION OF EXACERBATION OF DISEASE PROCESS. SKILLED NURSE FOR O/A, TEACHING RELATED TO PARTIAL SMALL BOWEL OBSTRUCTIONFOR EARLY IDENTIFICATION OF EXACERBATION OF DISEASE PROCESS.] Future Scheduled Test NEED FOR S KILLED TEACHING AND INTERVENTION RELATED TO DEHISCE AREA OF SURGICAL INCISION ON RIGHT UPPER ABDOMINAL QUADRANT. SKILLED NURSE OR TRAINED PATIENT/CAREGIVER TO PERFORM WOUND CARE TO DEHISCE AREA USING CLEAN TECHNIQUE, CLEANSE WITH WOUND CLEANSER/SALINE, PAT DRY WITH GAUZE, APPLY ALGINATE AG TO WOUND BED, COVER WITH 4X4, SECURE WITH MEDIPORE TAPE . SN TO PERFORM WOUND CARE 2X A WEEK, CAREGIVER TO PERFORM EVERY OTHER DAY ON NON-NURSING DAYS AND PRN IF SOILED OR DISLODGED. 1-2 PRN SKILLED NURSE VISITS FOR WOUND CARE DUE TO COMPLICATIONS. SKILLED NURSE TO OBTAIN WOUND CULTURE PRN S/S OF INFECTION. WOUND CARE WILL BE PERFORMED BY TRAINED CAREGIVER ON DAYS WHEN SKILLED NURSE IS NOT SCHEDULED FOR A VISIT. DISCONTINUE WOUND CARE/SUPPLIES ONCE WOUND IS HEALED. [code = NEED FOR SKILLED TEACHING AND INTERVENTION RELATED TO DEHISCE AREA OF SURGICAL INCISION ON RIGHT UPPER ABDOMINAL QUADRANT. SKILLED NURSE OR TRAINED PATIENT/CAREGIVER TO PERFORM WOUND CARE TO DEHISCE AREA USING CLEAN TECHNIQUE, CLEANSE WITH WOUND CLEANSER/SALINE, PAT DRY WITH GAUZE, APPLY ALGINATE AG TO WOUND BED, COVER WITH 4X4, SECURE WITH MEDIPORE TAPE . SN TO PERFORM WOUND CARE 2X A WEEK, CAREGIVER TO PERFORM EVERY OTHER DAY ON NON-NURSING DAYS AND PRN IF SOILED OR DISLODGED. 1-2 PRN SKILLED NURSE VISITS FOR WOUND CARE DUE TO COMPLICATIONS. SKILLED NURSE TO OBTAIN WOUND CULTURE PRN S/S OF INFECTION. WOUND CARE WILL BE PERFORMED BY TRAINED CAREGIVER ON DAYS WHEN SKILLED NURSE IS NOT SCHEDULED FOR A VISIT. DISCONTINUE WOUND CARE/SUPPLIES ONCE WOUND IS HEALED.] Future Scheduled Test SKILLED NU RSE FOR O/A AND SKILLED TEACHING RELATED TO ALTERED SKIN INTEGRITY OF SURGICAL INCISIONS ON RIGHT UPPER ABDOMINAL QUADRANT AND MIDLINE UMBILICAL AREA, INSTRUCT PATIENT TO KEEP INCISIONS CLEAN AND OPEN TO AIR. [code = SKILLED NURSE FOR O/A AND SKILLED TEACHING RELATED TO ALTERED SKIN INTEGRITY OF SURGICAL INCISIONS ON RIGHT UPPER ABDOMINAL QUADRANT AND MIDLINE UMBILICAL AREA, INSTRUCT PATIENT TO KEEP INCISIONS CLEAN AND OPEN TO AIR.] Future Scheduled Test SKILLED NU RSE TO PROVIDE ASSESSMENT AND TEACHING/REINFORCEMENT OF MANAGEMENT OF DEPRESSION INCLUDING DISEASE PROCESS, MEDICATION MANAGEMENT, COPING SKILLS AND IDENTIFY CHANGES ASSOCIATED WITH DEPRESSIVE DISORDERS FOR EARLY INTERVENTION. [code = SKILLED NURSE TO PROVIDE ASSESSMENT AND TEACHING/REINFORCEMENT OF MANAGEMENT OF DEPRESSION INCLUDING DISEASE PROCESS, MEDICATION MANAGEMENT, COPING SKILLS AND IDENTIFY CHANGES ASSOCIATED WITH DEPRESSIVE DISORDERS FOR EARLY INTERVENTION.] Future Scheduled Test SKILLED NU RSE FOR O/A AND SKILLED TEACHING RELATED TO SIGNS AND SYMPTOMS OF INFECTION AND INFECTION CONTROL MEASURES. [code = SKILLED NURSE FOR O/A AND SKILLED TEACHING RELATED TO SIGNS AND SYMPTOMS OF INFECTION AND INFECTION CONTROL MEASURES.] Future Scheduled Test PHYSICAL T HERAPIST TO EVALUATE PATIENT FOR PHYSICAL DECONDITIONING AND WEAKNESS [code = PHYSICAL THERAPIST TO EVALUATE PATIENT FOR PHYSICAL DECONDITIONING AND WEAKNESS] Goal Patient Goal - WOUNDS TO HEA L Goal Provider Goal - A PLAN OF CARE WILL BE ESTABLISHED THAT MEETS PATIENT'S ASSISTED NEEDS AND INCLUDES PATIENT GOAL FOR HOME HEALTH. Goal Provider Goal - PATIENT/CAREGIVER WILL VERBALIZE UNDERSTANDING OF EDUCATION PROVIDED ON MEDICATIONS BY THE END OF THE CERTIFICATION PERIOD. Goal Provider Goal - PATIENT WILL HAVE SUPPORT MEASURES ESTABLISHED TO PREVENT HOSPITALIZATION AND ED USE AND PATIENT/CAREGIVER WILL VERBALIZE/DEMONSTRATE METHODS TO REDUCE AVOIDABLE HOSPITALIZATION AND ED USE BY END OF EPISODE. Goal Provider Goal - PATIENT/CAREGIVER WILL VERBALIZE UNDERSTANDING OF DISCHARGE PLANNING INSTRUCTIONS BY DATE OF DISCHARGE. Goal Provider Goal - PATIENT/CAREGIVER WILL VERBALIZE/DEMONSTRATE EFFECTIVE ENVIRONMENTAL SAFETY AND FALL PREVENTION STRATEGIES, WILL REMAIN SAFE IN THE COMMUNITY, AND WILL BE FREE OF DANGER TO SELF AND OTHERS THROUGHOUT THE CERTIFICATION PERIOD. Goal Provider Goal - PATIENT/CAREGIVER WILL DEMONSTRATE UNDERSTANDING OF PHARMACOLOGIC AND NONPHARMACOLOGIC PAIN CONTROL MEASURES AND PATIENT WILL HAVE IMPROVEMENT IN PAIN INTERFERING WITH ACTIVITY EVIDENCED BY PAIN AT A LEVEL THAT IS ACCEPTABLE TO THE PATIENT AND PAIN LEVEL WITHIN ESTABLISHED PARAMETERS BY END OF CERTIFICATION PERIOD. Goal Provider Goal - PATIENT/CAREGIVER WILL VERBALIZE UNDERSTANDING OF PRESSURE ULCER PREVENTION BY END OF THE EPISODE. Goal Provider Goal - PATIENT/CAREGIVER WILL VERBALIZE SIGNS AND SYMPTOMS OF HYPERTENSION AND WILL BE ABLE TO DEMONSTRATE ABILITY TO MANAGE EXACERBATION BY END OF THE EPISODE. Goal Provider Goal - PATIENT/CAREGIVER WILL UTILIZE VIRTUAL VISITS TO ACHIEVE GOALS OUTLINED ON THE PLAN OF CARE. PATIENT WILL HAVE SUPPORT MEASURES ESTABLISHED TO PREVENT HOSPITALIZATION AND PATIENT/CAREGIVER WILL VERBALIZE/DEMONSTRATE METHODS TO REDUCE AVOIDABLE HOSPITALIZATION THROUGHOUT THE CERTIFICATION PERIOD. Goal Provider Goal - EXACERBATIONS OF ACUTE CHOLECYSTIS S/P OPEN CHOLECYSTECTOMY GASTROINTESTINAL DISEASE WILL BE PROMPTLY IDENTIFIED AND INTERVENTIONS IMPLEMENTED TO MINIMIZE RISKS TO PATIENT BY END OF EPISODE. EXACERBATIONS OF ACUTE PARTIAL SM BOWEL OBSTRUCTION WILL BE PROMPTLY IDENTIFIED AND INTERVENTIONS IMPLEMENTED TO MINIMIZE RISKS TO PATIENT BY END OF EPISODE. Goal Provider Goal - WOUND CARE WILL BE COMPLETED AND PATIENT WILL HAVE IMPROVED WOUND STATUS EVIDENCED BY NO SIGNS AND SYMPTOMS OF INFECTION, DECREASED WOUND SIZE, AND/OR NO COMPLICATIONS BY THE END OF THE CERTIFICATION PERIOD. Goal Provider Goal - PATIENT/CAREGIVER WILL VERBALIZE/DEMONSTRATE UNDERSTANDING OF TEACHING RELATED TO ALTERED SKIN INTEGRITY INCISIONS ON RIGHT UPPER ABDOMINAL QUADRANT AND MIDLINE UMBILICAL AREA BY END OF CERTIFICATION PERIOD. Goal Provider Goal - PATIENT/CAREGIVER WILL VERBALIZE/DEMONSTRATE UNDERSTANDING OF THE MANAGEMENT OF DEPRESSION THROUGHOUT THE CERTIFICATION PERIOD AND SYMPTOMS ARE IDENTIFIED AND MANAGED TO MAINTAIN PATIENT SAFETY IN THE HOME. Goal Provider Goal - PATIENT/CAREGIVER WILL VERBALIZE/DEMONSTRATE UNDERSTANDING OF S/S OF INFECTION AND INFECTION CONTROL MEASURES. SIGNS AND SYMPTOMS OF INFECTION WILL BE IDENTIFIED AND PHYSICIAN NOTIFIED FOR PROMPT INTERVENTION THROUGHOUT THE CERTIFICATION PERIOD. Goal Provider Goal - A PHYSICAL THERAPY EVALUATION TO BE COMPLETED WITH RECOMMENDATIONS AND/OR WRITTEN PLAN OF TREATMENT ESTABLISHED FOR PHYSICIAN S SIGNATURE. Reason for Visit INDEPENDENT IN THE COMMUNITY Encounters Start Date/Time End Date/Time Encounter Type Admission Type Attending [facility] Care Department Encounter ID Discharge Date Discharge Status Discharge Condition Discharge Reason Percent Goals Met 2025-04-18 00:00:00 2025-05-25 00:00:00 Outpatient [place] [facility]LE[facility] JACQUES [facility] [id number] 2025-05-25 00:00:00 DISCHARGE TO HOME OR SELF CARE INDEPENDEN T IN THE COMMUNITY GOALS MET ( ONLY) 94.12
--- NOTE | 2025-05-26 09:35 | MHC.OFFVIS ---
Vital Signs 05/26/25 09:36 Height 6 ft Weight 249 lb 1.957 oz BMI 33.8 Blood Pressure Location Lt brachial Position Sitting Intake Visit Reasons: GI bleed f/u Intake Note: Rancho presents in the office as a GI bleed follow up. CC: States that he is not having any concerns. [facility] Classifier Tender Required: No Allergies No Known Allergies Allergy (Verified 05/26/25 09:37) HPI Comments Details: 69 y.o M with PMH of obesity, fatty liver, prev GI bleeding who is following up as televisit after hospitalization in December for hemorrhagic shock from UGIB. To recap 01/07 p/w abd pain, nausea and lightheadedness and found to have acute anemia with Hb 7.4 which dropped further despite transfusion. Emergent EGD that day showed active bleeding in proximal stomach but due to poor visualization due to fresh and old blood/clots the exact source of bleeding could not be identified despite giving giving Reglan intra-procedure and waiting 30 mins. He was then admitted to ICU. Repeat EGD 01/08 again was futile. IR was then emergently consulted and pt underwent embolization of the left gastric artery and distally the right gastroepiploic artery. He was extubated 01/11 and eventually stepped down on 01/13. He required a total of 14u PRBC, 3u FFP and 4u platelets during the ICU stay. He was discharged 01/14 on high dose PPI. Pt reports a similar hx last year when he was managed at [facility]. Reports source of bleeding could not be found at that time despite an egd and colonoscopy. 02/23/25: Here for telehealth. Reports feeling good. [facility] per his report. No abd pain, N,V, melena or hematochezia. Saw Dr Sawant earlier last month. Records pending. 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 05/26/25: Here for follow up. Was admitted in the hospital in March initially for SBO and then complicated by acute richie s/p cholecystectomy 04/07 (Dr Navas). Pt subsequently developed an incisional seroma that was drained in office x 2. Currently no abd sx including pain, N,V. BMs are regular. No melena or hematochezia. Reviewed that colo is still pending. Would also favor doing an EGD alongside for complete evaluation post UGIB that could not be visualized at that time during endoscopy. [facility] Medical History Right upper quadrant pain Partial small bowel obstruction BPH (benign prostatic hyperplasia) Hypertension Upper GI bleed SCHULTZ (nonalcoholic steatohepatitis) Erectile dysfunction Chronic hepatitis C virus genotype 1a infection Surgical History (Updated 05/26/25 @ 09:37 by CHANCE Berg) Hx of colonoscopy Hx of cholecystectomy History of esophagogastroduodenoscopy (EGD) History of pancreatectomy Hx of splenectomy Social History Household Members: Family Housing: House Are you a primary caregiver assisted living to a significant other at home: No Do you presently have visiting nurse or other home services: No Comment: bilateral wrist restraints for airway safety Patient Tobacco Use Status: Former Tobacco user service: Yes Review of Systems Const All systems reviewed & are unremarkable except as noted in HPI and below Physical Exam Exam Exam: No apparent distress Nonicteric Abdomen soft, nondistended Alert and oriented x3, normal gait Vital Signs: BMI result Body Mass Index 33.8 Assessment & Plan Assessment & Plan (1) Anemia: Code(s): D64.9 - Anemia, unspecified Category: Medical Plan Iron deficiency anemia likely 2/2 UGIB that pt had earlier this year. However will need a colo to complete evaluation for anemia. Will also [place] egd alongside to evaluate the cardia which could not be visualized during the egd x 2 12/2024 while the pt was admitted. Plan: - EGD/colo - PEG prep Rxed and instructions reviewed - Repeat CBC and iron labs (already ordered) Follow up after procedures Orders: Referrals GI Procedure Notification D64.9 - Anemia, unspecified Medications: New peg 3350-electrolytes 236-22.74-6.74 -5.86 gram (Golytely) as per split prep instructions, until fecal effluent is clear 240 mL PO Q10M 4,000 mL 0RF colonoscopy Coding Level of Care Code Est Pt Level 4 (27389) Diagnoses Anemia D64.9
[2025-05-26 09:36] VITALS: BMI 33.8
--- OUTSIDE RECORDS SUMMARY | 2025-05-26 10:25 | XMS_ITS | Clinical Summary ---
Author Organization [employer] Address [address] [place] [address] Care Team Providers Care Rubber Compounder Formulator Name Role Phone Unavailable Primary Care Provider Unavailabl e Allergies No known active allergies Medications lisinopril 10 MG tablet Take 10 mg by mouth. 09/30/2023 Active alfuzosin ER (Uroxatral) 10 MG 24 hr tablet Take 1 tablet by mouth Once per day. 05/05/2025 Active amLODIPine (Norvasc) 10 MG tablet Take 1 tablet by mouth Once per day. 04/09/2025 Active ferrous gluconate (Fergon) 324 (38 Fe) MG tablet Take 1 tablet by mouth Once per day. 02/24/2025 Active finasteride (Proscar) 5 MG tablet Take 5 mg by mouth. 01/21/2025 Active hydrOXYzine HCl (Atarax) 25 MG tablet Take 25 mg by mouth. 01/21/2025 Active ibuprofen 600 MG tablet Take 1 tablet by mouth every 6 (six) hours if needed for pain. 04/09/2025 Active metoprolol succinate XL (Toprol-XL) 50 MG 24 hr tablet Take 50 mg by mouth. 01/21/2025 Active sildenafil (Viagra) 100 MG tablet TAKE ONE TABLET BY MOUTH NEEDED. 07/03/2024 Active tadalafil (Cialis) 5 MG tablet Take 1 tablet by mouth Once per day. 03/03/2025 Active lisinopril 30 MG tablet Take 30 mg by mouth Once per day. Active Active Problems Problem Noted Date Diagnosed Date Benign prostatic hyperplasia without lower urinary tract symptoms 05/19/2025 Multiple nodules of lung 05/19/2025 Overview (05/19/2025): Jun 02, 2020 Entered By: ZULY STUART Comment: small multiple LDCT 11/2018, 02/2019; 03/2020 - stable Oct 28, 2020 Entered By: ZULY TSUART Comment: next LDCT 03/2022 Obstructive sleep apnea (adult) (pediatric) 04/27 Vitamin D deficiency 05/19/2025 Overview (05/19/2025): Oct 18, 2020 Entered By: ZULY STUART Comment: 09/2020 22 Unilateral primary osteoarthritis, left knee Tinea corporis 05/19/2025 Lumbosacral spondylosis 05/19/2025 Spondylosis without myelopat hy or radiculopathy, lumbar region 05/19/2025 Snoring 05/19/2025 Severe obesity (BMI 35.0-39.9) with comorbidity ([facility]) 05/19/2025 Sacroiliitis, not elsewhere classified Resistant hypertension 05/19/2025 Rash 05/19/2025 Rash and other nonspecific skin eruption 025 Primary open-angle glaucoma, bilateral, severe s tage 05/19/2025 Primary insomnia 05/19/2025 Other specified counseling 05/19/2025 Encounter for fitting and ad justment of spectacles and contact lenses 05/19/2025 Encounter for immunization 05/19/2025 Encounter for screening for cardiovascular disor ders 05/19/2025 Encounter for screening for malignant neoplasm of respiratory organs 05/19/2025 Encounter for follow-up exam ination after completed treatment for conditions other than malignant neoplasm 05/19/2025 Other seizures ([facility]) 05/19/2025 Opioid dependence in remission ([facility]) 025 Overview (05/19/2025): Mar 22, 2025 Entered By: ALICIA CHOUDHURY Comment: Opioid (Oxycodone) Use Disorder, Severe Opioid dependence, uncomplicated ([facility]) 05/19 Alcohol dependence, in remission 05/19/2025 Obstructive sleep apnea of adult 05/19/2025 Overview (05/19/2025): Dec 19, 2020 Entered By: ZULY STUART Comment: 11/2020 SEVERE Apnea Hypopnea Index (AHI) of 92.8/hr Nasal congestion 05/19/2025 Nail dystrophy 05/19/2025 Housing unsatisfactory 05/19/2025 Homeless single person 05/19/2025 Dental calculus 05/17/2025 Missing teeth, acquired 05/17/2025 History of hepatitis C 11/04/2024 Overview (11/04/2024): Nov 29, 2017 Entered By: ANDRÉS KUMAR Comment: finished Harvoni tx 08/2017. SVR Dec 05, 2018 Entered By: ZULY STUART Comment: [facility] Gastroenterology services Provider: Rola Elkins Oct 18, 2020 Entered By: ZULY STUART Comment: 09/2020 - RNA undetected Oct 28, 2020 Entered By: ZULY STUART Comment: 09/2018 - U/S with elastography unlikely cirrhosis; CT abd 02/2019 shows simple hepatic cysts only May 11, 2023 Entered By: ZULY STUART Comment: mid pancreatic mass - for characterization/biopsy Glaucoma 11/04/2024 Type 2 diabetes mellitus with obesity 11/04/2024 Encounters Date Type Department Care Team Description 05/19/2025 9:30 AM EDT Office Visit [facility] ADULT D[facility] [address] [place] [address] Palma-Guerra, Loren, DDS Abfraction (Primary Dx) 05/17/2025 3:00 PM EDT Office Visit [facility]ULT [facility] [address] [place] [address] Chastity, Jessica Missing teeth, acquired (Primary Dx); Fractured dental buddhist with loss of material; Dental plaque from Last 3 Months Social History Tobacco Use Types Packs/Day Years Used Date Smoking Tobacco: Former Cigarettes Passive Smoke Exposure: Past Smokeless Tobacco: Never Tobacco Cessation:Counseling Given: Not Answered Sex and Gender Information Value Date Recorded Sex Assigned at Male 06/25/2022 10:14 AM EDT Legal Sex Male 10:14 AM EDT Gender Identity Male 06/25/2022 10:14 AM EDT Sexual Orientation Straight 06/25/2022 10 :14 AM EDT Last Filed Vital Signs Vital Sign Reading Time Taken Comments Blood Pressure 114/72 05/19/2025 9:41 AM EDT Pulse - - Temperature - - Respiratory Rate - - Oxygen Saturation - - Inhaled Oxygen Concentration - - Weight - - Height - - Body Mass Index - - Plan of Treatment Upcoming Encounters Date Type Department Care Team (Late st Contact Info) Description 11/18/2025 2:15 PM EDT Office Visit [facility]ULT [facility] [address] [place] [address] Chastity, Jessica [address] [place] [address] Health Maintenance Due Date Last Done Comments CT Colonography 1955 Colonoscopy 1955 Colorectal Cancer Screening 1955 Depression Screening 1955 Diabetes: Hemoglobin A1C 1955 FIT DNA/Cologuard 1955 FIT 1955 FOBT 1955 Lipid Panel 1955 SDOH Screening 1955 Sigmoidoscopy 1955 Diabetes: Foot Exam 1965 Meningococcal B Vaccine (1 of 5 - Increased Risk) 1965 Alcohol/Substance Use Screening 1967 Diabetes: Urine Protein Screening 1974 [...] Dental Oral Exam 04/05/2025 10/05/2024, , 02/10/2015 COVID-19 Vaccine ( - season) 2025 02/20/2022, 08/05/2021, 11/19/2020, Additional history exists Dental X-Ray: Bitewings 10/06/2025 10/05/19 25, 11/24/2020, 10/08/2019, Additional history exists Dental Prophylaxis 11/15/2025 05/17/2025, 0 10/05/2024, 11/24/2020 Tobacco Screening 05/17/2026 05/17/2025 Eye Exam 07/30/2026 07/30/2024, 02/03/2024 Dental X-Ray: Full Mouth 10/06/2027 025, 10/08/2019, 02/10/2015 DTaP/Tdap/Td Vaccines (4 - Td or Tdap) 10/12/2032 10/12/2022, 10/22/2014, 11/24/2013 Zoster Vaccines Completed 01/16/2021, 09/04/2019 Pneumococcal Vaccine: 50+ Years Completed 08/13/2023, 08/31/2019 HIB Vaccines Completed 09/30/2023 Influenza Vaccine Completed 05/11/2025, , 06/08/2020, Additional history exists HPV Vaccines Aged Out No longer eligi [...] Procedure Name Priority Date/Time Associated Diagnosis Comments CASE PRESENTATION, DETAILED AND EXTENSIVE TREATMENT PLANNING Routine 05/19/2025 9:30 AM EDT Abfraction 29 BB(V) RESIN-BASED COMPOSITE - 1 SURF, POSTERIOR Routine 05/19/2025 9:30 AM EDT Abfraction PROPHYLAXIS - ADULT Routine 05/17/2025 3 :00 PM EDT Missing teeth, acquired ORAL HYGIENE INSTRUCTIONS Routine 05/17/2025 3:00 PM EDT Missing teeth, acquired CASE PRESENTATION, DETAILED AND EXTENSIVE TREATMENT PLANNING Routine 05/17/2025 3:00 PM EDT Missing teeth, acquired INTRAORAL - COMPLETE SERIES OF RADIOGRAPHIC IMAGES Routine 10/05/2024 1:00 PM EST PERIODIC ORAL EVALUATION - ESTABLISHED PATIENT Routine 10/05/2024 1:00 PM EST Dental calculus Dental plaque Tartar deposits on teeth Encounter for dental examination Gingival recession, localized from Last 3 Months or Most Recently Relevant to Health Maintenance Insurance DENTAL - HSN FULL (MEDICAID)
--- OUTSIDE RECORDS SUMMARY | 2025-05-26 10:25 | XMS_ITS | Encounter Summary ---
Author Organization [employer] Address [address] [facility] [address] [place] [address] Care Team Providers Care Acidizer Water Well Name Role Phone Unavailable Primary Care Provider Unavailabl e Encounter Details Date Type Department Care Team (Late st Contact Info) Description 04/02/2024 Telephone [facility] ADULT DENTAL [address], [place] [phone] Jersey Kenney DMD [address] [place] [address] Social History Tobacco Use Types Packs/Day Years [...] Description 11/18/2025 2:15 PM EDT Office Visit [facility] ADULT D[facility] [address] [place] [address] Jessica Haywood [address] [place] [address] documented as of this encounter Visit Diagnoses Not on filedocumented in this encounter
--- OUTSIDE RECORDS SUMMARY | 2025-05-26 10:25 | XMS_ITS | Encounter Summary ---
Author Organization [employer] Address [address] [facility] [address] [place] [address] Care Team Providers Care Sewing Machine Repairer Helper Name Role Phone Unavailable Primary Care Provider Unavailabl e Encounter Details Date Type Department Care Team (Latest Contact Info) Description 11/24/2020 Abstract [facility] CONVERSIONS Dental, Provider, DDS Social History [...] Description 11/18/2025 2:15 PM EDT Office Visit [facility] ADULT DENTAL [address] [place] [address] Jessica Haywood [address] [place] [address] documented as of this encounter Visit Diagnoses Not on filedocumented in this encounter
== END 2025-05-26 10:18 | disposition home or self-care (01) ==
PROVIDERS: PCP Nurse Practitioner Gerontology; Visit Provider Internal Medicine
DX: D64.9 Anemia, unspecified (principal)
CPT/HCPCS: 99214

== ENCOUNTER → 2025-05-26 09:33 | Outpatient (BNVA) | payer MEDICAID, SELFPAY | PROVIDERS: PCP Nurse Practitioner Gerontology; Visit Provider Internal Medicine | DX: D64.9 Anemia, unspecified (principal) | CPT/HCPCS: 99212 ==

== ENCOUNTER 2025-06-02 09:52 | Outpatient (REF) | payer OTHER, SELFPAY ==
[2025-06-02 10:53] LABS: Hematocrit 37.0 % (42.0-52.0); Hemoglobin 12.4 g/dl (14.0-18.0); Mean Corpuscular HGB Conc 33.5 g/dl (31.0-36.0); Mean Corpuscular Hemoglobin 29.0 pg (27.0-33.0); Mean Corpuscular Volume 86.7 fL (80.0-98.0); NRBC Abs Auto 0.000 X10*3/uL (0.0-0.012); NRBC Pct Auto 0.0 /100WBC (0.0-0.2); Platelet Count 308 X10*3/uL (160-400); Red Blood Count 4.27 X10*6/uL (4.60-5.80); White Blood Count 5.1 X10*3/uL (4.8-10.8)
[2025-06-02 11:50] LABS: Iron 68 mcg/dL (45-160); Percent Iron Saturation 26 % (15-50); Total Iron Binding Capacity 262 mcg/dL (228-428); Unsaturated Iron Binding 194 ug/dL
[2025-06-02 11:52] LABS: Ferritin 58 ng/mL (20-250)
== END 2025-06-02 09:53 | disposition home or self-care (01) ==
LOC: HO.LAB 09:52
PROVIDERS: PCP Nurse Practitioner Gerontology; Visit Provider Internal Medicine
DX: K92.2 Gastrointestinal hemorrhage, unspecified (principal)
CPT/HCPCS: 36415; 82728; 83540; 85027

== ENCOUNTER 2025-07-27 09:22 | Day surgery (SDC) | payer OTHER, SELFPAY ==
--- OUTSIDE RECORDS SUMMARY | 2025-06-24 07:02 | XMS_ITS | Encounter Summary ---
Author Organization [employer] Address [address] [facility] 7 [place] [address] Care Team Providers Care Nurse Aide Evaluator Name Role Phone Unavailable Primary Care Provider Unavailabl e Encounter Details Date Type Department Care Team (Latest Contact Info) Description 11/24/2020 Abstract [facility] CONVERSIONS Dental, Provider, DDS Social History [...] Description 11/18/2025 2:15 PM EDT Office Visit [facility] ADULT DENTAL [address] [place] [address] Jessica Haywood [address] [place] [address] documented as of this encounter Visit Diagnoses Not on filedocumented in this encounter
--- OUTSIDE RECORDS SUMMARY | 2025-06-24 07:02 | XMS_ITS | Encounter Summary ---
Author Organization [employer] Address [address] [facility] 7 [place] [address] Care Team Providers Care Riding Coach Name Role Phone Unavailable Primary Care Provider Unavailabl e Encounter Details Date Type Department Care Team (Late st Contact Info) Description 04/02/2024 Telephone [facility]ULT D[facility] [address] [place], [place] [phone] Jersey Kenney DMD [address] [place] [address] Social History Tobacco Use Types Packs/Day Years [...] Description 11/18/2025 2:15 PM EDT Office Visit [facility]ULT [facility] [address] [place] [address] Jessica Haywood [address] [place] [address] documented as of this encounter Visit Diagnoses Not on filedocumented in this encounter
--- OUTSIDE RECORDS SUMMARY | 2025-06-24 07:02 | XMS_ITS | Clinical Summary ---
Author Organization [employer] Address [address] [facility] [address] 7[address] [place] [address] Care Team Providers Care Buck Presser Name Role Phone Unavailable Primary Care Provider [...] stable Oct 28, 2020 Entered By: ZULY STUART Comment: next LDCT 03/2022 Obstructive sleep apnea (adult) (pediatric) 04/27 Vitamin D deficiency 05/19/2025 Overview (05/19/2025): Oct 18, 2020 Entered By: ZULY STUART Comment: 09/2020 22 Unilateral primary osteoarthritis, left knee Tinea corporis 05/19/2025 Lumbosacral spondylosis 05/19/2025 Spondylosis without myelopat hy or radiculopathy, lumbar region 05/19/2025 Snoring 05/19/2025 Severe obesity (BMI 35.0-39.9) with comorbidity ([facility]) 05/19/2025 Sacroiliitis, not elsewhere classified Resistant hypertension [...] other than malignant neoplasm 05/19/2025 Other seizures ([facility]) 05/19/2025 Opioid dependence in remission ([facility]) 025 Overview (05/19/2025): Mar 22, 2025 Entered By: ALICIA CHOUDHURY Comment: Opioid (Oxycodone) Use Disorder, Severe Opioid dependence, uncomplicated ([facility]) 05/19 Alcohol dependence, in remission 05/19/2025 Obstructive [...] 05, 2018 Entered By: ZULY STUART Comment: [facility] [place] Provider: Rola Elkins Oct 18, [...] Description 05/19/2025 9:30 AM EDT Office Visit [facility] ADULT D[facility] [address] [place] [address] Palma-Guerra, Loren, DDS Abfraction (Primary Dx) 05/17/2025 3:00 PM EDT Office Visit [facility] ADULT [facility] [address] [place] [address] Chastity, Jessica Missing teeth, acquired (Primary Dx); Fractured dental latter day with loss of material; Dental plaque from [...] Description 11/18/2025 2:15 PM EDT Office Visit [facility]ULT [facility] [address] [place] [address] Chastity, Jessica [address] [place] [address] Health Maintenance Due Date Last Done Comments [...]
--- NOTE | 2025-07-21 13:35 | P.CONAN_ITS ---
Documented by User: Sveta Camacho NP 07/21/25 13:36 HPI - Anesthesia Eval Consult details Narrative: 70yo M for Upper Endoscopy and Colonoscopy PMFSH Active Problems Active Problems: All Active Problems Seroma of skin or subcutaneous tissue after non-dermatologic procedure (Acute) Bladder outlet obstruction (Acute) Weak urinary stream (Acute) Elevated PSA (Acute) S/P cholecystectomy (Acute) Hypertension (Acute) Upper GI bleed (Acute) BPH (benign prostatic hyperplasia) (Acute) Urinary retention due to benign prostatic hyperplasia (Acute) Hx of splenectomy (Acute) History of pancreatectomy (Acute) Abnormal CT of the abdomen (Acute) Anemia (Acute) Colon cancer screening (Acute) Glaucoma (Acute) Chronic bronchitis (Acute) Obesity (BMI 35.0-39.9 without comorbidity) (Acute) SCHULTZ (nonalcoholic steatohepatitis) (Acute) Past Medical History Medical History Sleep apnea Right upper quadrant pain Partial small bowel obstruction BPH (benign prostatic hyperplasia) Hypertension Upper GI bleed SCHULTZ (nonalcoholic steatohepatitis) Erectile dysfunction Chronic hepatitis C virus genotype 1a infection Family History Family history of problems with anesthesia: No Surgical History Surgical History Hx of colonoscopy Hx of cholecystectomy History of esophagogastroduodenoscopy (EGD) History of pancreatectomy Hx of splenectomy History of Problems with Anesthesia: No Social History Social History Household Members: Family Housing: House Are you a primary care program resident to a significant other at home: No Do you presently have visiting nurse or other home services: No Comment: bilateral wrist restraints for airway safety Patient Tobacco Use Status: Former Tobacco user Use of substances other than those prescribed or required for medical reasons: No Are you DNR?: No Advance Directives: No Advance Directives Information Provided: Yes service: Yes Meds Allergies Allergy/AdvReac Type Severity Reaction Status Date / Time No Known Allergies Allergy Verified 07/27/25 09:47 Home Medications ?Medication ?Instructions ?Recorded ?Confirmed ?Last Taken ?Type brinzolamide 1 %-brimonidine 0.2 % 1 drp ophthalmic (e ye) BID 01/07/25 07/27/25 04/02/25 History eye drops,suspension (Simbrinza) hydroxyzine HCl 25 mg tablet 25 mg PO BEDTIME PRN Inso mnia 01/07/25 07/27/25 Unknown History tadalafil 20 mg tablet 5 mg PO DAILY 01/07/2507/2704/02/25 History omeprazole 40 mg capsule,delayed 40 mg PO DAILY@0630 0 04/02/25 07/27/25 04/02/25 History release Assessment and Plan Assessment Anesthesia Assessment: Chart Reviewed Final Anesthetic Review Family History of Problems with Anesthesia: No History of Problems with Anesthesia: No Documented by User: Jose Chavarria MD 07/27/25 10:50 [facility] Past Medical History Medical History Sleep apnea Right upper quadrant pain Partial small bowel obstruction BPH (benign prostatic hyperplasia) Hypertension Upper GI bleed SCHULTZ (nonalcoholic steatohepatitis) Erectile dysfunction Chronic hepatitis C virus genotype 1a infection Surgical History Surgical History Hx of colonoscopy Hx of cholecystectomy History of esophagogastroduodenoscopy (EGD) History of pancreatectomy Hx of splenectomy Social History Social History Household Members: Family Housing: House Are you a primary care program resident to a significant other at home: No Do you presently have visiting nurse or other home services: No Comment: bilateral wrist restraints for airway safety Patient Tobacco Use Status: Former Tobacco user Use of substances other than those prescribed or required for medical reasons: No Are you DNR?: No Advance Directives: No Advance Directives Information Provided: Yes service: Yes Meds Allergies Allergy/AdvReac Type Severity Reaction Status Date / Time No Known Allergies Allergy Verified 07/27/25 09:47 Home Medications ?Medication ?Instructions ?Recorded ?Confirmed ?Last Taken ?Type brinzolamide 1 %-brimonidine 0.2 % 1 drp ophthalmic (e ye) BID 01/07/25 07/27/25 04/02/25 History eye drops,suspension (Simbrinza) hydroxyzine HCl 25 mg tablet 25 mg PO BEDTIME PRN Inso mnia 01/07/25 07/27/25 Unknown History tadalafil 20 mg tablet 5 mg PO DAILY 01/07/2507/2704/02/25 History omeprazole 40 mg capsule,delayed 40 mg PO DAILY@0630 0 04/02/25 07/27/25 04/02/25 History release Exam Airway Mallampati Class: II TM Dist: >3cm Neck ROM: Full Assessment and Plan Assessment Anesthesia Assessment: Anesthesia Plan Discussed Final Anesthetic Review NPO: Yes ASA Class: III Final Preanesthetic Review: No Changes in Pt Med Stat, Meds/Allgs Chart Reviewed, Consent Obtained/Reviewed and Anes Risks/Benef Reviewed Patient Risk: Intermediate Procedure Risk: Low Anesthetic Plan Anesthetic Plan: MAC: Disposition: Standard PACU
--- NOTE | 2025-07-27 09:43 | MHC.SHP ---
Pre-Procedural Eval Section A - 24 Hr Update-Section A only Date of Service: 07/27/25 Section B - Complete if H&P > 30 days Chief Complaint: Anemia, unspecified Details of Present Illness: Right upper quadrant pain Partial small bowel obstruction BPH (benign prostatic hyperplasia) Hypertension Upper GI bleed SCHULTZ (nonalcoholic steatohepatitis) Erectile dysfunction Chronic hepatitis C virus genotype 1a infection Surgical History (Updated 05/26/25 @ 09:37 by CHANCE Berg) Hx of colonoscopy Hx of cholecystectomy History of esophagogastroduodenoscopy (EGD) History of pancreatectomy Hx of splenectomy Present Medications: see Short Stay Collaborative assessment Allergies: Allergies Allergy/AdvReac Type Severity Reaction Status Date / Time No Known Allergies Allergy Verified 05/26/25 09:37 Review of Systems Review of Systems Comment: Ten point ROS negative Exam Exam Comment: Gen appear: No acute distress HEENT: no icterus Chest: No overt resp distress Abd: soft, nontender, nondistended Psych: Stable affect, answering questions appropriately Neuro: A/Ox3 noted to move all extremities spontaneously Ext: no peripheral edema Plan Diagnosis/Plan: Unchanged I have reviewed the history and physical and performed a pertinent physical examination on my patient. No changes have occurred unless specified. Time Spent With Patient Time: Total time managing care of this patient today ____ minutes.
[2025-07-27 09:50] VITALS: BMI 34.3
[2025-07-27 10:03] VITALS: BP 162/90; PULSE 75; RESP 16; TEMP 36.3; O2SAT 97
[2025-07-27] MEDS: Lactated Ringers 1,000 ML 100 ML IVCONT (10:12)
--- NOTE | 2025-07-27 11:06 | P.OPN-COLO_ITS ---
Colonoscopy Operative Note Operative Note Date of Service: 07/27/25 Narrative: Procedure: Upper endoscopy and colonoscopy Indication: Anemia Endoscopist: Kate Ballard MD Anesthesia Provider: Dr Jose Chavarria Anesthesia type: MAC Instrument: [id number] and [id number] EGD Procedure:?? The procedure, indications, preparation and potential complications were reviewed with the patient, who indicated understanding and gave written informed consent to proceed. The endoscope was introduced through the mouth, and advanced to the 2nd part of the duodenum. The mucosa was carefully examined on slow withdrawal of the endoscope. The patient tolerated the procedure well. There were no immediate complications.? EGD Findings:? * Esophagus:? Normal esophageal mucosa was noted. The Z-line was at 39 cm. * Stomach:? Normal gastric mucosa. There was a focal area with convergence of folds along the greater curvature in the proximal body of the stomach without any underlying mucosal abnormality on high definition white light or NBI. Retroflexion was performed in the cardia. * Duodenum:? Normal duodenal mucosa. Cold forceps biopsies were taken from the duodenal bulb and 2nd portion of the duodenum to rule out celiac sprue. Colonoscopy Procedure:? The patient was then turned for the colonoscopy. A digital rectal exam was performed which was normal.? A distal attachment cap was affixed to the tip of the scope and the colonoscope was then inserted through the anus and advanced through the colon and advanced to the cecum at 75 cm and terminal ileum.? Appendiceal orifice and ileocecal valve were identified. Mucosa was carefully examined under high definition white light as the instrument was slowly withdrawn in a retrograde panoramic fashion. Retroflexion was performed in rectum. The procedure was not difficult. The quality of the prep was BBPS: 3+2+3 = adequate Withdrawal time 14 minutes Limitations: No limitations Findings: Mucosa: Normal colon and terminal ileum mucosa. Protruding lesions: * 1 sessile polyp of size 5 mm in ascending colon. Cold snare polypectomy was performed. The polyp was completely removed and retrieved. * 2 sessile polyps of size 2 mm in transverse colon. Cold snare polypectomy was performed. The polyps were completely removed and retrieved. * Medium internal hemorrhoids without stigmata of recent bleeding. Impression: 1. Normal esophagus 2. Normal stomach 3. Normal duodenum (biopsy) 4. Normal colon mucosa 5. Total 3 polyps removed 6. Internal hemorrhoids Recommendations:?? * Follow-up path results * Repeat colonoscopy for polyp surveillance in 3-5 years depending on the path.= * No obvious source of iron deficiency anemia elicited today. Likely had anemia after GI bleed this year which is responding well to iron supplementation. No indication for video capsule endoscopy at this time.
[2025-07-27 11:14] VITALS: BP 124/80; PULSE 93; RESP 24; TEMP 36.6; O2SAT 94
[2025-07-27 11:30] VITALS: BP 171/102; PULSE 72; RESP 16; O2SAT 95
[2025-07-27 11:45] VITALS: BP 166/93; PULSE 85; RESP 16; TEMP 36.4; O2SAT 94
== END 2025-07-27 12:32 | disposition home or self-care (01) ==
PROVIDERS: PCP Nurse Practitioner Gerontology; Visit Provider Internal Medicine
PROC: (CPT 45385; principal; 2025-07-27 11:40)
DX: D64.9 Anemia, unspecified (principal); K64.8 Other hemorrhoids; D12.2 Benign neoplasm of ascending colon; D12.3 Benign neoplasm of transverse colon
CPT/HCPCS: 45385; 88305; J2003; J2704

== ENCOUNTER → 2025-07-27 09:22 | Outpatient (BNV) | payer MEDICARE, SELFPAY | PROVIDERS: PCP Nurse Practitioner Gerontology; Visit Provider Internal Medicine | DX: D64.9 Anemia, unspecified (principal); K63.5 Polyp of colon; K64.8 Other hemorrhoids | CPT/HCPCS: 43239; 45385 ==

== ENCOUNTER 2025-08-11 10:32 | Outpatient (AMB) | payer OTHER, SELFPAY ==
--- NOTE | 2025-08-11 10:38 | A.OFFVIS_ITS ---
Vital Signs 08/11/25 10:40 Height 6 ft Weight 260 lb 2.327 oz BMI 35.3 BP 136/77 Blood Pressure Location Lt brachial Position Sitting Pulse 100 Intake Visit Reasons: s/p double Intake Note: Rancho presents in the office as a follow up for his EGD and COLO. CC: States that he is here for results even though he is aware of results. Organization Development Consultant Required: No Allergies No Known Allergies Allergy (Verified 07/27/25 09:47) HPI Comments Details: 69 y.o M with PMH of obesity, fatty liver, prev GI bleeding who is following up as televisit after hospitalization in December for hemorrhagic shock from UGIB. To recap 01/07 p/w abd pain, nausea and lightheadedness and found to have acute anemia with Hb 7.4 which dropped further despite transfusion. Emergent EGD that day showed active bleeding in proximal stomach but due to poor visualization due to fresh and old blood/clots the exact source of bleeding could not be identified despite giving giving Reglan intra-procedure and waiting 30 mins. He was then admitted to ICU. Repeat EGD 01/08 again was futile. IR was then emergently consulted and pt underwent embolization of the left gastric artery and distally the right gastroepiploic artery. He was extubated 01/11 and eventually stepped down on 01/13. He required a total of 14u PRBC, 3u FFP and 4u platelets during the ICU stay. He was discharged 01/14 on high dose PPI. Pt reports a similar hx last year when he was managed at [facility]. Reports source of bleeding could not be found at that time despite an egd and colonoscopy. 02/23/25: Here for telehealth. Reports feeling good. [facility] per his report. No abd pain, N,V, melena or hematochezia. Saw Dr Sawant earlier last month. Records pending. 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 05/26/25: Here for follow up. Was admitted in the hospital in March initially for SBO and then complicated by acute richie s/p cholecystectomy 04/07 (Dr Navas). Pt subsequently developed an incisional seroma that was drained in office x 2. Currently no abd sx including pain, N,V. BMs are regular. No melena or hematochezia. Reviewed that colo is still pending. Would also favor doing an EGD alongside for complete evaluation post UGIB that could not be visualized at that time during endoscopy. EGD/colo 07/27/25: 1. Normal esophagus 2. Normal stomach 3. Normal duodenum (biopsy) 4. Normal colon mucosa 5. Total 3 polyps removed 6. Internal hemorrhoids Plan: A. Duodenum, biopsy: Duodenal mucosa with preserved villi and no specific change. B. Colon, ascending, polyp: Tubular adenoma; negative for high-grade dysplasia and carcinoma. C. Colon, transverse, polyps: Tubular adenomas (4 pieces); negative for high- grade dysplasia and carcinoma 08/11/25: Here for follow up. Reports no acute GI issues. Looking forward to start working again. Results of EGD/colo reviewed. Pt aware to return in 3 years for colo. In terms of anemia, this is responding well to iron supplementation. Pt wonders if still needs to cont this, will cehck labs. [facility] Medical History Sleep apnea Right upper quadrant pain Partial small bowel obstruction BPH (benign prostatic hyperplasia) Hypertension Upper GI bleed SCHULTZ (nonalcoholic steatohepatitis) Erectile dysfunction Chronic hepatitis C virus genotype 1a infection Surgical History Hx of colonoscopy Hx of cholecystectomy History of esophagogastroduodenoscopy (EGD) History of pancreatectomy Hx of splenectomy Social History Household Members: Family Housing: House Are you a primary youth career specialist to a significant other at home: No Do you presently have visiting nurse or other home services: No Comment: bilateral wrist restraints for airway safety Patient Tobacco Use Status: Former Tobacco user service: Yes Review of Systems Const All systems reviewed & are unremarkable except as noted in HPI and below Physical Exam Exam Exam: No apparent distress Nonicteric Abdomen soft, nondistended Alert and oriented x3, normal gait Vital Signs: Last Vital Signs Pulse 100 08/11/25 10:40 BP 136/77 08/11/25 10:40 BMI result Body Mass Index 35.3 Assessment & Plan Assessment & Plan (1) Anemia: Code(s): D64.9 - Anemia, unspecified Category: Medical (2) Personal history of colonic polyps: Code(s): Z86.0100 - Personal history of colon polyps, unspecified Category: Medical Plan 1. Anemia Likely 2/2 blood loss from UGIB earlier this year. No further bleeding source identified on bidrectional endoscopy. Plan: - Check labs as below - If normal H/H and ferritin, OK to DC PO iron. 2. Personal hx of polyps Had x3 T.A. Plan: - Next colo due 07/2028. Reminder set. Follow up PRN Orders: Orders Ferritin Today D64.9 - Anemia, unspecified Complete Blood Count Auto Diff Today D64.9 - Anemia, unspecified Vitamin B12 and Folate Today D64.9 - Anemia, unspecified Coding Level of Care Code Est Pt Level 3 (94741) Diagnoses Anemia D64.9 Personal history of colonic polyps Z86.0100
[2025-08-11 10:40] VITALS: BP 136/77; PULSE 100; BMI 35.3
== END 2025-08-11 11:30 | disposition home or self-care (01) ==
LOC: HO.HGI 10:33
PROVIDERS: PCP Nurse Practitioner Gerontology; Visit Provider Internal Medicine
DX: D64.9 Anemia, unspecified (principal); Z86.0100 Personal history of colon polyps, unspecified
CPT/HCPCS: 99213

== ENCOUNTER 2025-08-11 10:32 | Outpatient (REF) | payer OTHER, SELFPAY ==
[2025-08-11 12:04] LABS: Hematocrit 43.3 % (42.0-52.0); Hemoglobin 14.1 g/dl (14.0-18.0); Imm Gran Abs Auto 0.01 X10*3/uL (0.00-0.03); Imm Gran Pct Auto 0.2 % (0.0-0.4); Lymphocytes Absolute Auto 2.0 X10*3/uL (1.2-4.9); MANUAL DIFF FLAG SCAN; Mean Corpuscular HGB Conc 32.6 g/dl (31.0-36.0); Mean Corpuscular Hemoglobin 29.6 pg (27.0-33.0); Mean Corpuscular Volume 90.8 fL (80.0-98.0); NRBC Abs Auto 0.000 X10*3/uL (0.0-0.012); NRBC Pct Auto 0.0 /100WBC (0.0-0.2); PLT CLUMP 1; Red Blood Count 4.77 X10*6/uL (4.60-5.80); SCAN SMEAR FLAG 1
[2025-08-11 12:39] LABS: Platelet Count 263 X10*3/uL (160-400); White Blood Count 5.4 X10*3/uL (4.8-10.8)
[2025-08-11 12:57] LABS: Ferritin 57 ng/mL (20-250)
[2025-08-11 13:05] LABS: Folate 10.4 ng/mL (> or = 4.0); Vitamin B12 362 pg/mL (200-900)
--- OUTSIDE RECORDS SUMMARY | 2025-08-11 15:04 | XMS_ITS | Clinical Summary ---
Author Organization [employer] Address [address] [place] [address] Care Team Providers Care Business Account Leader Name Role Phone Unavailable Primary Care Provider [...] 05/19/2025 Severe obesity (BMI 35.0-39.9) with comorbidity ([facility]) 05/19/2025 Sacroiliitis, not elsewhere classified Resistant hypertension [...] other than malignant neoplasm 05/19/2025 Other seizures ([facility]) 05/19/2025 Opioid dependence in remission ([facility]) 025 Overview (05/19/2025): Mar 22, 2025 Entered By: ALICIA CHOUDHURY Comment: Opioid (Oxycodone) Use Disorder, Severe Opioid dependence, uncomplicated ([facility]) 05/19 Alcohol dependence, in remission 05/19/2025 Obstructive [...] 05, 2018 Entered By: ZULY STUART Comment: [facility] [place] Gastroenterology services Provider: Rola Elkins Oct 18, [...] Description 05/19/2025 9:30 AM EDT Office Visit [facility] ADULT DENTAL [address] [place] [address] Palma-Guerra, Loren, DDS Abfraction (Primary Dx) 05/17/2025 3:00 PM EDT Office Visit [facility] ADULT DENT[facility] [address] [place] [address] Chastity, Jessica Missing teeth, acquired (Primary Dx); Fractured dental lutheran with loss of material; Dental plaque from [...] Description 11/18/2025 2:15 PM EDT Office Visit [facility] ADULT DENT[facility] [address] [place] [address] Chastity, Jessica [address] [place] [address] Health Maintenance Due Date Last Done Comments CT Colonography 1955 Colonoscopy 1955 Colorectal Cancer Screening 1955 Depression Screening 1955 Diabetes: Hemoglobin A1C 1955 FIT DNA/Cologuard 1955 FIT 1955 FOBT 1955 Lipid Panel 1955 SDOH Screening 1955 Sigmoidoscopy 1955 Diabetes: Foot Exam 1965 Meningococcal B Vaccine (1 of 4 - Increased Risk) 1965 Alcohol/Substance Use Screening 1967 Diabetes: Urine Protein Screening 1974 Hepatitis A Vaccines (1 of 2 - Risk 2-dose series) 1974 RSV Patients and Patients Aged 60 years or older (1 - Risk 50-74 years 1-dose series) 2005 Hepatitis B Vaccines (3 of 3 - Risk 3-dose series) 10/30/2019 09/04/2019, 09/05/2018 Meningococcal Vaccine (2 - Risk 2-dose series) 11/25/2023 09/30/2023 Dental Oral Exam 04/05/2025 10/05/2024, , 02/10/2015 COVID-19 Vaccine ( season) 2025 02/20/2022, 08/05/2021, [...]
--- OUTSIDE RECORDS SUMMARY | 2025-08-11 15:04 | XMS_ITS | Encounter Summary ---
Author Organization [employer] Address [address] [facility] 7 [place] [address] Care Team Providers Care Patient Services Coordinator Name Role Phone Unavailable Primary Care Provider Unavailabl e Encounter Details Date Type Department Care Team (Late st Contact Info) Description 04/02/2024 Telephone [facility] ADULT DENTAL [address] [place], [place] [phone] Jersey Kenney DMD [address] [place] [address] Social History Tobacco Use Types Packs/Day Years [...] Description 11/18/2025 2:15 PM EDT Office Visit [facility] ADULT DENT[facility] [address] [place] [address] Jessica Haywood [address] [place] [address] documented as of this encounter Visit Diagnoses Not on filedocumented in this encounter
--- OUTSIDE RECORDS SUMMARY | 2025-08-11 15:04 | XMS_ITS | Encounter Summary ---
Author Organization [employer] Address [address] [facility] [address] [place] [address] Care Team Providers Care Shell Trim Tool Setter Name Role Phone Unavailable Primary Care Provider Unavailabl e Encounter Details Date Type Department Care Team (Latest Contact Info) Description 11/24/2020 Abstract [facility] CONVERSIONS Dental, Provider, DDS Social History Tobacco [...] Description 11/18/2025 2:15 PM EDT Office Visit [facility] ADULT DENTAL [address] [place] [address] Jessica Haywood [address] [place] [address] documented as of this encounter Visit Diagnoses Not on filedocumented in this encounter
== END 2025-08-11 10:33 | disposition home or self-care (01) ==
LOC: HO.LAB 10:32
PROVIDERS: PCP Nurse Practitioner Gerontology; Visit Provider Internal Medicine
DX: Z48.815 Encounter for surgical aftercare following surgery on the digestive system (principal); D64.9 Anemia, unspecified; Z86.0100 Personal history of colon polyps, unspecified
CPT/HCPCS: 36415; 82607; 82728; 82746; 85025